=== PATIENT | female | born 1965 | race Caucasian/White ===

== ENCOUNTER 2022-09-03 16:08 | Emergency (ER) | payer OTHER, SELFPAY ==
[2022-09-03 16:24] VITALS: BP 122/100; PULSE 80; RESP 16; TEMP 36.6; O2SAT 97; BMI 30.6
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
[2022-09-03] MEDS: METHOCARBAMOL 500 MG TABLET PO (17:11)
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
== END 2022-09-03 18:45 | disposition home or self-care (01) ==
PROVIDERS: Emergency Provider Emergency Medicine
DX: M54.6 Pain in thoracic spine (principal)
CPT/HCPCS: 72072; 99283

== ENCOUNTER 2022-09-18 10:22 | Emergency (ER) | payer OTHER, SELFPAY ==
[2022-09-18] VITALS (18 sets, daily range): BP systolic 115–140; BP diastolic 72–98; PULSE 62–90; RESP 16–20; TEMP 36.7; O2SAT 93–98; BMI 28.4
--- NOTE | 2022-09-18 10:38 | XR_ITS ---
The [address] [address] Patient Name: KATELYN KAY MRN: [id number] date: 1965 Sex: F Assigned Patient Location: ER Current Patient Location: ED.MAIN Accession/Order Number: [id number] Exam Date: 09/18/2022 10:45 Report Date: 09/18/2022 11:35 At the request of: RA CEJA Procedure: XR chest 1V EXAM: XR chest 1V HISTORY: SOB COMPARISON: 08/24/2019 TECHNIQUE: Chest X-ray AP, 1 view FINDINGS: Support devices: Right jugular approach Mediport catheter overlying the superior vena cava. Lungs/pleura: No consolidation, effusion, or pneumothorax. Heart and mediastinum: Normal contours. Bones: No acute abnormality identified. XR/XR chest 1V Impression: No radiographic evidence of acute cardiopulmonary process. Electronically authenticated by: THALIA FALCON Date: 09/18/2022 11:35
--- NOTE | 2022-09-18 10:38 | ECG_ITS ---
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
[2022-09-18 12:13] LABS: Basophils Percent Auto 0.3 % (0.2-2.0); Eosinophils Absolute Auto 0.1 10^3/uL (0.0-0.7); Eosinophils Percent Auto 1.6 % (0.9-7.0); Hematocrit 38.6 % (36.0-48.0); Hemoglobin 13.5 g/dL (12.0-16.0); Immature Granulocytes Abs Auto 0.01 10^3/uL (0.00-0.03); Immature Granulocytes Pct Auto 0.2 % (0.0-0.5); Lymphocytes Absolute Auto 2.7 10^3/uL (1.2-3.8); Lymphocytes Percent Auto 45.8 % (20.5-60.0); Mean Corpuscular Hemoglobin 32.5 pg (26.7-34.0); Mean Corpuscular Volume 92.8 fL (81.0-99.0); Monocytes Absolute Auto 0.3 10^3/uL (0.3-0.8); Monocytes Percent Auto 4.7 % (1.7-12.0); Neutrophils Absolute Auto 2.8 10^3/uL (1.4-6.5); Neutrophils Percent Auto 47.4 % (43.0-75.0); Platelet Count 118 10^3/uL (150-450); Red Blood Count 4.16 10^6/uL (4.20-5.40); Red Cell Distribution Width 13.2 % (11.0-15.0); White Blood Count 5.8 10^3/uL (4.0-11.0)
[2022-09-18 12:28] LABS: Alanine Aminotransferase 35 U/L (14-59); Albumin Globulin Ratio 1.1; Albumin Level 3.8 g/dL (3.4-5.0); Alkaline Phosphatase 66 U/L (46-116); Anion Gap 16.8; Aspartate Amino Transferase 27 U/L (15-37); BUN Creatinine Ratio 11.8; Bilirubin Total 0.4 mg/dL (0.2-1.0); Calcium 8.9 mg/dL (8.5-10.1); Carbon Dioxide 19.4 mmol/L (21.0-32.0); Chloride 107 mmol/L (98-107); Estimated GFR (African America >60 (>=60); Estimated GFR (Non-African Ame 56 (>=60); Globulin 3.6 g/dL; Glucose 191 mg/dL (74-106); Potassium 4.2 mmol/L (3.5-5.1); Sodium 139 mmol/L (136-145); Total Protein 7.4 g/dL (6.4-8.2); Troponin I High Sensitivity 5.5 pg/mL (4.0-51.3)
[2022-09-18] MEDS: IPRATROPIUM/ALBUTEROL SULFATE 3 ML AMPUL.NEB IH ×2 (12:52→13:51)
--- NOTE | 2022-09-18 13:46 | ED.GENADUL1 ---
HPI - General Adult General Chief complaint: Shortness of Breath/Dyspnea Stated complaint: SHORTNESS OF BREATH Time Seen by Provider: 09/18/22 12:20 Source: patient Mode of arrival: walk-in Limitations: no limitations History of Present Illness HPI narrative: Patient is a 56 red female who is presenting to the Emergency Room today with chief complaint of shortness of breath, wheezing and possible asthma exacerbation and chronic obstructive pulmonary disease exacerbation starting yesterday. Patient has never been a smoker. Patient just developed asthma/chronic obstructive pulmonary disease several years ago. 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 Patient was never a smoker, her parents both were smokers. Patient has no headache. Not lightheaded dizzy. No chest pain. Patient does feel like she is having a difficult time taking a deep breath, no Does not have any change in her shortness of breath at rest or with exertion, but she feels like she is Having difficult time taking a deep breath and she's been using her albuterol inhaler and nebulizer yesterday with little relief. . All systems are negative except as noted/marked. All systems reviewed and otherwise negative. . Nurses note and vital signs reviewed and patient is not hypoxic. General: The patient appears well and in no apparent distress. Patient is resting comfortably on cart. Patient is not toxic, lethargic, or listless Skin: Warm, dry, no pallor noted. There is no rash noted. No petechiae, purpura. Head: Normocephalic, atraumatic Eye: Normal conjunctiva, no drainage, EOMI. PERRL Ears, Nose, Mouth, and Throat: oral mucosa is moist. Nares patent. Mouth without vesicles. Cardiovascular: Regular Rate and Rhythm, no murmur, gallop, rub Respiratory: Patient is in no distress, no accessory muscle use, Patient has decreased breath sounds bilateral, faint wheezing bilateral, no rhonchi or rales or crackles noted. No respiratory distress, equal breath sounds bilateral, equal chest rise, trachea midline Back: non-tender, GI: soft, no tenderness Musculoskeletal: Patient has full range of motion of all of the extremities, no motor, sensory, or focal neurological deficits Neurological: A&O x3, normal speech Psychiatric: Cooperative Related Data Home Medications Medication Instructions Recorded Confirmed alendronate 70 mg tablet mg PO 09/03/22 alprazolam 0.25 mg tablet mg 09/03/22 amitriptyline 25 mg tablet mg 09/03/22 dextromethorphan-guaifenesin 30 tab PO 09/03/22 mg-600 mg tablet extended [id number] hr (Mucinex DM) docusate sodium 100 mg capsule mg PO 09/03/22 ergocalciferol (vitamin D2) 1,250 09/03/22 mcg (50,000 unit) capsule gabapentin 800 mg tablet mg 09/03/22 glipizide 5 mg tablet, extended mg PO 09/03/22 release 24 hr insulin glargine 100 unit/mL (3 unit subcut 09/03/22 mL) subcutaneous pen (Lantus Solostar U-100 Insulin) meloxicam 15 mg tablet mg 09/03/22 metformin 500 mg tablet mg 09/03/22 prochlorperazine maleate 10 mg mg 09/03/22 tablet spironolactone 50 mg tablet mg 09/03/22 Previous Rx's Medication Instructions Recorded methocarbamol 750 mg tablet 750 mg PO Q6H PRN pain #20 tabs 09/03/22 prednisone 50 mg tablet 50 mg PO DAILY 3 days #3 tabs 09/18/22 Allergies Allergy/AdvReac Type Severity Reaction Status Date / Time amoxicillin AdvReac Verified 09/03/22 16:23 ibuprofen [From Motrin] AdvReac Verified 09/03/22 16:23 loratadine AdvReac Verified 09/03/22 16:23 [facility] Medical History (Updated 09/18/22 @ 13:46 by Alberto Choi MD) Surgical History (Updated 09/18/22 @ 13:40 by Sarbjit Kauffman) Social History Smoking status: Never smoker Exam Constitutional Vital Signs, click to edit/add: Last Vital Signs Temp 98.0 F 09/18/22 10:32 Pulse 90 09/18/22 14:09 Resp 16 09/18/22 14:09 BP 136/88 H 09/18/22 14:00 Pulse Ox 95 09/18/22 13:52 O2 Del Method Room Air 09/18/22 12:37 Course Vital Signs Vital signs: Vital Signs Temperature 98.0 F 09/18/22 10:32 Pulse Rate 70 09/18/22 10:32 Respiratory Rate 18 09/18/22 10:32 Blood Pressure 129/86 H 09/18/22 10:32 Pulse Oximetry 98 09/18/22 10:32 Oxygen Delivery Method Room Air 09/18/22 10:32 Temperature 98.0 F 09/18/22 10:32 Pulse Rate 90 09/18/22 14:09 Respiratory Rate 16 09/18/22 14:09 Blood Pressure 136/88 H 09/18/22 14:00 Pulse Oximetry 95 09/18/22 13:52 Oxygen Delivery Method Room Air 09/18/22 12:37 Medical Decision Making MDM Narrative Medical decision making narrative: . Patient was given initial DuoNeb reading to me. Patient had EKG, x-ray labwork done. Patient was given a 2nd DuoNeb breathing treatment just prior to discharge. Patient stated that she felt 50 percent better after the 1st DuoNeb breathing treatment. Patient's x-ray, EKG and labs show no acute findings. Patient was sent home with a short course of steroids use if needed. Patient says that she's never been on steroids in the past couple years. 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 Patient understands instructions, no questions at discharge. Patient does have inhalers and nebulizers use at home. Patient was in the Emergency Room for lengthy amount of time today. Blameless apologies were given. Patient very thankful for help and I apologized several times for her lengthy stay in the Emergency Room. Patient was just happy that she felt better, patient's child at bedside Lab Data Lab results reviewed: Yes I reviewed the patient's lab results Labs: Lab Results 09/18/22 Range/Units 10:57 WBC 5.8 (4.0-11.0) 10^3/uL RBC 4.16 L (4.20-5.40) 10^6/uL Hgb 13.5 (12.0-16.0) g/dL Hct 38.6 (36.0-48.0) % MCV 92.8 (81.0-99.0) fL MCH 32.5 (26.7-34.0) pg MCHC 35.0 (29.9-35.2) g/dL RDW 13.2 (11.0-15.0) % Plt Count 118 L (150-450) 10^3/uL MPV 11.0 (9.5-13.5) fL Neut % (Auto) 47.4 (43.0-75.0) % Lymph % (Auto) 45.8 (20.5-60.0) % [place] % (Auto) 4.7 (1.7-12.0) % Eos % (Auto) 1.6 (0.9-7.0) % Baso % (Auto) 0.3 (0.2-2.0) % Neut # (Auto) 2.8 (1.4-6.5) 10^3/uL Lymph # (Auto) 2.7 (1.2-3.8) 10^3/uL [place] # (Auto) 0.3 (0.3-0.8) 10^3/uL Eos # (Auto) 0.1 (0.0-0.7) 10^3/uL Baso # (Auto) 0.0 (0.0-0.1) 10^3/uL Abs Immat Gran (auto) 0.01 (0.00-0.03) 10^3/uL Imm/Tot Granulo (auto) 0.2 (0.0-0.5) % Sodium 139 (136-145) mmol/L Potassium 4.2 (3.5-5.1) mmol/L Chloride 107 (98-107) mmol/L Carbon Dioxide 19.4 L (21.0-32.0) mmol/L Anion Gap 16.8 BUN 12.0 (7.0-18.0) mg/dL Creatinine 1.02 (0.55-1.02) mg/dL Est GFR ( Amer) >60 (>=60) Est GFR (Non-Af Amer) 56 L (>=60) BUN/Creatinine Ratio 11.8 Glucose 191 H (74-106) mg/dL Calcium 8.9 (8.5-10.1) mg/dL Total Bilirubin 0.4 (0.2-1.0) mg/dL AST 27 (15-37) U/L ALT 35 (14-59) U/L Alkaline Phosphatase 66 (46-116) U/L Troponin I High Sens 5.5 (4.0-51.3) pg/mL Total Protein 7.4 (6.4-8.2) g/dL Albumin 3.8 (3.4-5.0) g/dL Globulin 3.6 g/dL Albumin/Globulin Ratio 1.1 ECG Data Attestation: I personally reviewed and interpreted this ECG as follows: Interpretation: EKG interpretation. Normal sinus rhythm at 64 beats a minute. Normal axis deviation. No acute ST elevation, no acute ectopy. QTC of 411. Discharge Plan Discharge Chief Complaint: Shortness of Breath/Dyspnea Clinical Impression: Asthma attack, Dyspnea, COPD exacerbation Patient Disposition: Home, Self-Care Condition: Good Prescriptions / Home Meds: New prednisone 50 mg tablet 50 mg PO DAILY 3 Days Qty: 3 0RF No Action metformin 500 mg tablet meloxicam 15 mg tablet alendronate 70 mg tablet PO glipizide 5 mg tablet extended release 24hr PO prochlorperazine maleate 10 mg tablet alprazolam 0.25 mg tablet amitriptyline 25 mg tablet gabapentin 800 mg tablet docusate sodium 100 mg capsule PO ergocalciferol (vitamin D2) 1,250 mcg (50,000 unit) capsule Mucinex DM 30-600 mg tablet extended release 12 hr PO spironolactone 50 mg tablet insulin glargine [Lantus Solostar U-100 Insulin] 100 unit/mL (3 mL) insulin pen SUBCUT methocarbamol 750 mg tablet 750 mg PO Q6H PRN (Reason: pain) Qty: 20 0RF Instructions: Asthma (ED), COPD (Chronic Obstructive Pulmonary Disease) (ED), How to Use a Nebulizer (ED), Dyspnea (ED), Wheezing (ED) Additional Instructions: If he started having shortness of breath or wheezing again, take the prednisone tablet. He take one prednisone tablet daily, 50 mg a day. Patient continue to use inhaler every 4 hours while awake for the nebulizer every 4 hours while awake for the next 3-4 days. Follow-up with healing doctor or PCP next week if needed. Stand Alone Forms: Portal Instructions Referrals: Aubrey Salazar [Primary Care Provider] - 1 week Discharge Date/Time: 09/18/22 14:12
== END 2022-09-18 14:12 | disposition home or self-care (01) ==
PROVIDERS: Emergency Provider Emergency Medicine
DX: J45.901 Unspecified asthma with (acute) exacerbation (principal); R06.00 Dyspnea, unspecified; J44.1 Chronic obstructive pulmonary disease with (acute) exacerbation; Z79.899 Other long term (current) drug therapy; Z79.4 Long term (current) use of insulin; Z79.84 Long term (current) use of oral hypoglycemic drugs
CPT/HCPCS: 36415; 71045; 80053; 84484; 85025; 93005; 94640; 99285

== ENCOUNTER 2022-09-20 12:30 | Emergency (ER) | payer OTHER, SELFPAY ==
[2022-09-20] VITALS (10 sets, daily range): BP systolic 140–183; BP diastolic 74–112; PULSE 86; RESP 26; TEMP 36.8; O2SAT 99; BMI 30.8
--- NOTE | 2022-09-20 12:44 | ECG_ITS ---
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
--- NOTE | 2022-09-20 12:44 | XR_ITS ---
The [address] [address] Patient Name: KATELYN KAY MRN: [id number] date: 1965 Sex: F Assigned Patient Location: ER Current Patient Location: ER Accession/Order Number: [id number] Exam Date: 09/20/2022 12:55 Report Date: 09/20/2022 13:17 At the request of: DERRELL LANDIN Procedure: XR chest 1V EXAMINATION: XR chest 1V HISTORY: cp COMPARISON: XR chest 09/18/2022 FINDINGS: LUNGS: No significant pulmonary parenchymal abnormalities. VASCULATURE: No increased pulmonary vasculature. PLEURA: No pneumothorax, effusion, or pleural thickening. CARDIAC: No cardiomegaly or cardiac silhouette abnormality. MEDIASTINUM: No visible mass or adenopathy. BONES: No fracture or visible bone lesion. OTHER: Stable dual-lumen port projecting over right chest with distal catheter tip near cavoatrial junction. XR/XR chest 1V IMPRESSION: 1. No acute cardiopulmonary process. Stable chest. Electronically authenticated by: CASSY JOHNSTON Date: 09/20/2022 13:17
[2022-09-20] MEDS: METHYLPREDNISOLONE SOD SUCC PF 125 MG/2 ML VIAL IVP (13:12)
[2022-09-20 13:13] LABS: Basophils Percent Auto 0.1 % (0.2-2.0); Eosinophils Percent Auto 0.1 % (0.9-7.0); Hematocrit 40.7 % (36.0-48.0); Hemoglobin 14.3 g/dL (12.0-16.0); Immature Granulocytes Abs Auto 0.08 10^3/uL (0.00-0.03); Immature Granulocytes Pct Auto 0.7 % (0.0-0.5); Lymphocytes Absolute Auto 2.6 10^3/uL (1.2-3.8); Lymphocytes Percent Auto 24.4 % (20.5-60.0); Mean Corpuscular HGB Conc 35.1 g/dL (29.9-35.2); Mean Corpuscular Hemoglobin 31.8 pg (26.7-34.0); Mean Corpuscular Volume 90.4 fL (81.0-99.0); Mean Platelet Volume 10.8 fL (9.5-13.5); Monocytes Absolute Auto 0.3 10^3/uL (0.3-0.8); Monocytes Percent Auto 2.5 % (1.7-12.0); Neutrophils Absolute Auto 7.8 10^3/uL (1.4-6.5); Neutrophils Percent Auto 72.2 % (43.0-75.0); Platelet Count 165 10^3/uL (150-450); White Blood Count 10.8 10^3/uL (4.0-11.0)
[2022-09-20 13:30] LABS: Alanine Aminotransferase 33 U/L (14-59); Albumin Globulin Ratio 1.2; Albumin Level 4.3 g/dL (3.4-5.0); Alkaline Phosphatase 61 U/L (46-116); Anion Gap 20.6; Aspartate Amino Transferase 19 U/L (15-37); BUN Creatinine Ratio 11.7; Bilirubin Total 0.9 mg/dL (0.2-1.0); Calcium 9.3 mg/dL (8.5-10.1); Carbon Dioxide 16.3 mmol/L (21.0-32.0); Chloride 105 mmol/L (98-107); Estimated GFR (African America 52 (>=60); Estimated GFR (Non-African Ame 43 (>=60); Globulin 3.6 g/dL; Glucose 176 mg/dL (74-106); Potassium 3.9 mmol/L (3.5-5.1); Sodium 138 mmol/L (136-145); Total Protein 7.9 g/dL (6.4-8.2)
[2022-09-20 13:32] LABS: Troponin I High Sensitivity 4.9 pg/mL (4.0-51.3)
[2022-09-20] MEDS: 0.9 % SODIUM CHLORIDE 1,000 ML 500 ML IV (14:15)
[2022-09-20 15:34] LABS: Bilirubin Urine NEGATIVE (NEGATIVE); Blood Urine MODERATE (NEGATIVE); Clarity Urine CLEAR (CLEAR); Color Urine YELLOW (YELLOW); Glucose Urine UA NEGATIVE (NEGATIVE); Ketones Urine TRACE mg/dL (NEGATIVE); Leukocyte Esterase Urine TRACE (NEGATIVE); Nitrite Urine POSITIVE (NEGATIVE); Protein Urine TRACE mg/dL (NEG/TRACE); Specific Gravity Urine >=1.030 (1.005-1.025); Urobilinogen Urine 0.2 EU/dL (0.2-1.0); pH Urine 5.5 (5.0-9.0)
[2022-09-20 15:38] LABS: Urine Microscopic Indicated YES
[2022-09-20 15:41] LABS: Bacteria Urine MODERATE #/HPF (NONE SEEN); Cast Seen? NONE SEEN #/LPF (NONE SEEN); Crystals Seen? None Seen #/HPF (None Seen); Mucus Urine NONE SEEN (NONE SEEN); Squamous Epithelial Cell Urine FEW #/LPF (NONE/RARE); Urine Culture Indicated YES
--- NOTE | 2022-09-20 16:32 | ED.SOB1 ---
HPI - SOB/Dyspnea General Chief Complaint: Shortness of Breath/Dyspnea Stated Complaint: SHORTNESS OF BREATH Time Seen by Provider: 09/20/22 12:41 Source: patient Mode of arrival: walk-in Limitations: no limitations History of Present Illness HPI Narrative: The patient is a diabetic who is coming to us with difficulty breathing that been going on for at least 3 days , she was already evaluated for asthma exacerbation 2 days ago and discharged home with prednisone and evaluated before for Muscular pain The patient denies any nausea vomiting or any other complaints she just complaining of difficulty breathing the pain continues although she did mention taking breathing treatment before arrival She denies any cough or any chest pain Related Data Home Medications Medication Instructions Recorded Confirmed alendronate 70 mg tablet mg PO 09/03/22 alprazolam 0.25 mg tablet mg 09/03/22 amitriptyline 25 mg tablet mg 09/03/22 dextromethorphan-guaifenesin 30 tab PO 09/03/22 mg-600 mg tablet extended [id number] hr (Mucinex DM) docusate sodium 100 mg capsule mg PO 09/03/22 ergocalciferol (vitamin D2) 1,250 09/03/22 mcg (50,000 unit) capsule gabapentin 800 mg tablet mg 09/03/22 glipizide 5 mg tablet, extended mg PO 09/03/22 release 24 hr insulin glargine 100 unit/mL (3 unit subcut 09/03/22 mL) subcutaneous pen (Lantus Solostar U-100 Insulin) meloxicam 15 mg tablet mg 09/03/22 metformin 500 mg tablet mg 09/03/22 prochlorperazine maleate 10 mg mg 09/03/22 tablet spironolactone 50 mg tablet mg 09/03/22 Previous Rx's Medication Instructions Recorded methocarbamol 750 mg tablet 750 mg PO Q6H PRN pain #20 tabs 09/03/22 Allergies Allergy/AdvReac Type Severity Reaction Status Date / Time amoxicillin AdvReac Verified 09/03/22 16:23 ibuprofen [From Motrin] AdvReac Verified 09/03/22 16:23 loratadine AdvReac Verified 09/03/22 16:23 Review of Systems ROS Status of ROS 10 or more systems reviewed and unremarkable except as noted in history and below [facility] Medical History (Updated 09/20/22 @ 14:04 by Miryam Quiroga MD) Surgical History (Updated 09/18/22 @ 13:40 by Sarbjit Kauffman) Social History Smoking status: Never smoker Exam Narrative Exam Narrative: Nurses notes and vital signs reviewed and patient is not hypoxic. General: Well-appearing and in no apparent distress. Skin: Warm, dry, no pallor noted. No rash. Head: Normocephalic, atraumatic. Neck: Supple, non-tender. Eye: Pupils are equal, round and EOMI. No scleral icterus. Ears, Nose, Mouth, and Throat: TM are clear, no nasal mucosal hypertrophy. Oral mucosa is moist, no posterior oropharynx erythema, uvula is mid-line Cardiovascular: Regular Rate and Rhythm without murmur, gallop or rub. Respiratory: No accessory muscle use or respiratory distress. Lungs are clear to auscultation, no wheezing, rales or rhonchi Chest Wall: no tenderness Back: No midline thoracic or lumbar vertebral tenderness. No CVA tenderness Musculoskeletal: normal ROM, no calf or popliteal tenderness, no lower extremity edema/swelling GI: Abdomen is soft, non-distended. Normal bowel sounds. No masses appreciated. No tenderness to palpation. No rebound, guarding, or rigidity noted. Neurological: A&O x4. No cranial nerve dysfunction observed. No truncal ataxia. Moves all extremities. Sensation intact. Psychiatric: Cooperative and interactive. Normal mood and affect. Constitutional Vital Signs, click to edit/add: Last Vital Signs Temp 98.2 F 09/20/22 12:33 Pulse 86 09/20/22 12:33 Resp 26 H 09/20/22 12:33 BP 183/112 H 09/20/22 14:31 Pulse Ox 99 09/20/22 12:33 O2 Del Method Room Air 09/20/22 12:33 Course Vital Signs Vital signs: Vital Signs Temperature 98.2 F 09/20/22 12:33 Pulse Rate 86 09/20/22 12:33 Respiratory Rate 26 H 09/20/22 12:33 Blood Pressure 166/84 H 09/20/22 12:33 Pulse Oximetry 99 09/20/22 12:33 Oxygen Delivery Method Room Air 09/20/22 12:33 Temperature 98.2 F 09/20/22 12:33 Pulse Rate 86 09/20/22 12:33 Respiratory Rate 26 H 09/20/22 12:33 Blood Pressure 183/112 H 09/20/22 14:31 Pulse Oximetry 99 09/20/22 12:33 Oxygen Delivery Method Room Air 09/20/22 12:33 MDM - SOB/Dyspnea MDM Narrative Medical decision making narrative: The patient EKG in the ER showing sinus rhythm with a heart rate of [address] elevation or depression The patient CBC and chemistry shows metabolic acidosis which could be secondary to the fact that the patient have some acute kidney injury in addition to the fact that she has been taking some steroid and she is diabetic the patient was started IV fluid after initially initiating treatment for possible asthma exacerbation and with the fact that the patient already taking prednisone The patient was instructed not to take any steroids right now and to continue hydration She was feeling much better after she was hydrated in the ER she had no urinary symptoms The patient is to follow up with primary care physician in next 2-3 days or to return to the emergency department should any of the signs or symptoms worsen or new symptoms develop. The patient agrees with the following Diagnosis and Treatment plan and the patient will be discharged home. Lab Data Labs: Lab Results 09/20/22 09/20/22 Range/Units 12:52 14:55 WBC 10.8 (4.0-11.0) 10^3/uL RBC 4.50 (4.20-5.40) 10^6/uL Hgb 14.3 (12.0-16.0) g/dL Hct 40.7 (36.0-48.0) % MCV 90.4 (81.0-99.0) fL MCH 31.8 (26.7-34.0) pg MCHC 35.1 (29.9-35.2) g/dL RDW 13.0 (11.0-15.0) % Plt Count 165 (150-450) 10^3/uL MPV 10.8 (9.5-13.5) fL Neut % (Auto) 72.2 (43.0-75.0) % Lymph % (Auto) 24.4 (20.5-60.0) % [place] % (Auto) 2.5 (1.7-12.0) % Eos % (Auto) 0.1 L (0.9-7.0) % Baso % (Auto) 0.1 L (0.2-2.0) % Neut # (Auto) 7.8 H (1.4-6.5) 10^3/uL Lymph # (Auto) 2.6 (1.2-3.8) 10^3/uL [place] # (Auto) 0.3 (0.3-0.8) 10^3/uL Eos # (Auto) 0.0 (0.0-0.7) 10^3/uL Baso # (Auto) 0.0 (0.0-0.1) 10^3/uL Abs Immat Gran (auto) 0.08 H (0.00-0.03) 10^3/uL Imm/Tot Granulo (auto) 0.7 H (0.0-0.5) % Sodium 138 (136-145) mmol/L Potassium 3.9 (3.5-5.1) mmol/L Chloride 105 (98-107) mmol/L Carbon Dioxide 16.3 L (21.0-32.0) mmol/L Anion Gap 20.6 BUN 15.0 (7.0-18.0) mg/dL Creatinine 1.28 H (0.55-1.02) mg/dL Est GFR ( Amer) 52 L (>=60) Est GFR (Non-Af Amer) 43 L (>=60) BUN/Creatinine Ratio 11.7 Glucose 176 H (74-106) mg/dL Calcium 9.3 (8.5-10.1) mg/dL Total Bilirubin 0.9 (0.2-1.0) mg/dL AST 19 (15-37) U/L ALT 33 (14-59) U/L Alkaline Phosphatase 61 (46-116) U/L Troponin I High Sens 4.9 (4.0-51.3) pg/mL Total Protein 7.9 (6.4-8.2) g/dL Albumin 4.3 (3.4-5.0) g/dL Globulin 3.6 g/dL Albumin/Globulin Ratio 1.2 Urine Color Yellow (YELLOW) Urine Clarity Clear (CLEAR) Urine pH 5.5 (5.0-9.0) Ur Specific [place] >=1.030 A (1.005-1.025) Urine Protein Trace (NEG/TRACE) mg/dL Urine Glucose (UA) Negative (NEGATIVE) mg/dL Urine Ketones Trace A (NEGATIVE) mg/dL Urine Occult Blood Moderate A (NEGATIVE) Urine Nitrite Positive A (NEGATIVE) Urine Bilirubin Negative (NEGATIVE) Urine Urobilinogen 0.2 (0.2-1.0) EU/dL Ur Leukocyte Esterase Trace A (NEGATIVE) Urine RBC 5-10 A (0-2) #/HPF Urine WBC 10-20 A (NONE SEEN) #/HPF Ur Squamous Epith Cells Few A (NONE/RARE) #/LPF Urine Crystals None seen (None Seen) #/HPF Urine Bacteria Moderate A (NONE SEEN) #/HPF Urine Casts None seen (NONE SEEN) #/LPF Urine Mucus None seen (NONE SEEN) Ur Culture Indicated? Yes Discharge Plan Discharge Chief Complaint: Shortness of Breath/Dyspnea Clinical Impression: DIOGENES (acute kidney injury), Asthma Patient Disposition: Home, Self-Care Time of Disposition Decision: 14:00 Condition: Good Prescriptions / Home Meds: Discontinued prednisone 50 mg tablet 50 mg PO DAILY 3 Days Qty: 3 0RF No Action metformin 500 mg tablet meloxicam 15 mg tablet alendronate 70 mg tablet PO glipizide 5 mg tablet extended release 24hr PO prochlorperazine maleate 10 mg tablet alprazolam 0.25 mg tablet amitriptyline 25 mg tablet gabapentin 800 mg tablet docusate sodium 100 mg capsule PO ergocalciferol (vitamin D2) 1,250 mcg (50,000 unit) capsule Mucinex DM 30-600 mg tablet extended release 12 hr PO spironolactone 50 mg tablet insulin glargine [Lantus Solostar U-100 Insulin] 100 unit/mL (3 mL) insulin pen SUBCUT methocarbamol 750 mg tablet 750 mg PO Q6H PRN (Reason: pain) Qty: 20 0RF Instructions: Asthma (ED), Acute Kidney Injury (DC) Stand Alone Forms: Portal Instructions Referrals: Aubrey Salazar [Primary Care Provider] - 1 week Discharge Date/Time: 09/20/22 16:00
--- NOTE | 2022-09-24 10:01 | PC.NURSE ---
09/24/[address] cortes reviewed pt c+s cipro 500mg po bid times 5 days called to katie mohan per pt request pt called and updated, on f/u with pcp and take all atb to ensure complete tx of uti. pt v/u and denies any further questions at this time. Beverly Goodwin RN
== END 2022-09-20 16:00 | disposition home or self-care (01) ==
PROVIDERS: Emergency Provider Emergency Medicine
DX: J45.909 Unspecified asthma, uncomplicated (principal); N17.9 Acute kidney failure, unspecified; Z79.899 Other long term (current) drug therapy; Z79.4 Long term (current) use of insulin; Z79.84 Long term (current) use of oral hypoglycemic drugs
CPT/HCPCS: 36415; 71045; 80053; 81003; 81015; 84484; 85025; 87086; 87150; 87186; 93005; 96374; 99285; J2930

== ENCOUNTER 2022-09-30 10:50 | Emergency (ER) | payer OTHER, SELFPAY ==
[2022-09-30 10:53] VITALS: BP 123/87; PULSE 81; RESP 18; TEMP 36.7; O2SAT 98; BMI 30.8
--- NOTE | 2022-09-30 11:06 | ED_ITS ---
HPI - General Adult General Chief complaint: Skin/Abscess/Foreign Body Stated complaint: face turning yellow Time Seen by Provider: 09/30/22 10:59 Source: patient Mode of arrival: walk-in Limitations: no limitations History of Present Illness HPI narrative: 56-year-old female presents because she feels the skin of her face is turning yellow. She states her eyes are not. She was here within the last week and had s ome kidney issues but she didn't require admission the hospital. She's never had liver issues and doesn't drink alcohol and has no abdominal pain. she noticed this today. Related Data Home Medications Medication Instructions Recorded Confirmed alendronate 70 mg tablet mg PO 09/03/22 alprazolam 0.25 mg tablet mg 09/03/22 amitriptyline 25 mg tablet mg 09/03/22 dextromethorphan-guaifenesin 30 tab PO 09/03/22 mg-600 mg tablet extended hr (Mucinex DM) docusate sodium 100 mg capsule mg PO 09/03/22 ergocalciferol (vitamin D2) 1,250 09/03/22 mcg (50,000 unit) capsule gabapentin 800 mg tablet mg 09/03/22 glipizide 5 mg tablet, extended mg PO 09/03/22 release 24 hr insulin glargine 100 unit/mL (3 unit subcut 09/03/22 mL) subcutaneous pen (Lantus Solostar U-100 Insulin) meloxicam 15 mg tablet mg 09/03/22 metformin 500 mg tablet mg 09/03/22 prochlorperazine maleate 10 mg mg 09/03/22 tablet spironolactone 50 mg tablet mg 09/03/22 Previous Rx's Medication Instructions Recorded methocarbamol 750 mg tablet 750 mg PO Q6H PRN pain #20 tabs 09/03/22 Allergies Allergy/AdvReac Type Severity Reaction Status Date / Time amoxicillin AdvReac Verified 09/03/22 16:23 ibuprofen [From Motrin] AdvReac Verified 09/03/22 16:23 loratadine AdvReac Verified 09/03/22 16:23 Review of Systems ROS Narrative A ten point review of systems is negative except as noted above. [facility] Medical History (Updated 09/30/22 @ 12:33 by Jacob Gallagher MD) Surgical History (Updated 09/18/22 @ 13:40 by Sarbjit Kauffman) Social History Smoking status: Never smoker Exam Narrative Exam Narrative: Nurses note and vital signs reviewed and patient is not hypoxic. General: The patient appears well and in no apparent distress. Patient is resting comfortably on cart. Skin: Warm, dry, no pallor noted. There is no rash noted. I do not notice that her skin is jaundiced on her face or anywhere else. There is no scleral icterus. Head: Normocephalic, atraumatic Eye: Normal conjunctiva, no drainage Ears, Nose, Mouth, and Throat: oral mucosa is moist. Nares patent. Cardiovascular: Regular Rate and Rhythm Respiratory: Patient is in no distress, no accessory muscle use, lungs are brian ar to auscultation, no wheezing, rales or rhonchi Back: non-tender GI: no tenderness to palpation, no masses appreciated. No rebound, guarding, or rigidity noted. Musculoskeletal: The patient has no evidence of calf tenderness, no pitting edema, symmetrical pulses noted bilaterally Neurological: A&O, normal speech Psychiatric: Cooperative Constitutional Vital Signs, click to edit/add: Last Vital Signs Temp 98.1 F 09/30/22 10:53 Pulse 81 09/30/22 10:53 Resp 18 09/30/22 10:53 BP 123/87 09/30/22 10:53 Pulse Ox 98 09/30/22 10:53 Course Vital Signs Vital signs: Vital Signs Temperature 98.1 F 09/30/22 10:53 Pulse Rate 81 09/30/22 10:53 Respiratory Rate 18 09/30/22 10:53 Blood Pressure 123/87 09/30/22 10:53 Pulse Oximetry 98 09/30/22 10:53 Temperature 98.1 F 09/30/22 10:53 Pulse Rate 81 09/30/22 10:53 Respiratory Rate 18 09/30/22 10:53 Blood Pressure 123/87 09/30/22 10:53 Pulse Oximetry 98 09/30/22 10:53 Medical Decision Making MDM Narrative Medical decision making narrative: her workup is negative. Kidney function is greatly improved from last week and her bilirubin is normal. She is reassured. Treatment diagnosis and follow-up were discussed with the patient. Differential Diagnosis Differential Diagnosis: acute kidney injury, dehydration, anemia, liver disease Lab Data Lab results reviewed: Yes I reviewed the patient's lab results Labs: Lab Results 09/30/22 09/30/22 Range/Units 11:11 11:16 WBC 5.3 (4.0-11.0) 10^3/uL RBC 4.35 (4.20-5.40) 10^6/uL Hgb 13.8 (12.0-16.0) g/dL Hct 40.2 (36.0-48.0) % MCV 92.4 (81.0-99.0) fL MCH 31.7 (26.7-34.0) pg MCHC 34.3 (29.9-35.2) g/dL RDW 13.2 (11.0-15.0) % Plt Count 97 L (150-450) 10^3/uL MPV 11.2 (9.5-13.5) fL Neut % (Auto) 46.7 (43.0-75.0) % Lymph % (Auto) 43.8 (20.5-60.0) % [place] % (Auto) 6.6 (1.7-12.0) % Eos % (Auto) 1.9 (0.9-7.0) % Baso % (Auto) 0.4 (0.2-2.0) % Neut # (Auto) 2.5 (1.4-6.5) 10^3/uL Lymph # (Auto) 2.3 (1.2-3.8) 10^3/uL [place] # (Auto) 0.4 (0.3-0.8) 10^3/uL Eos # (Auto) 0.1 (0.0-0.7) 10^3/uL Baso # (Auto) 0.0 (0.0-0.1) 10^3/uL Abs Immat Gran (auto) 0.03 (0.00-0.03) 10^3/uL Imm/Tot Granulo (auto) 0.6 H (0.0-0.5) % Sodium 136 (136-145) mmol/L Potassium 4.5 (3.5-5.1) mmol/L Chloride 104 (98-107) mmol/L Carbon Dioxide 20.5 L (21.0-32.0) mmol/L Anion Gap 16.0 BUN 12.0 (7.0-18.0) mg/dL Creatinine 1.07 H (0.55-1.02) mg/dL Est GFR ( Amer) >60 (>=60) Est GFR (Non-Af Amer) 53 L (>=60) BUN/Creatinine Ratio 11.2 Glucose 246 H (74-106) mg/dL Calcium 9.5 (8.5-10.1) mg/dL Total Bilirubin 0.6 (0.2-1.0) mg/dL AST 19 (15-37) U/L ALT 34 (14-59) U/L Alkaline Phosphatase 68 (46-116) U/L Total Protein 7.1 (6.4-8.2) g/dL Albumin 3.8 (3.4-5.0) g/dL Globulin 3.3 g/dL Albumin/Globulin Ratio 1.2 Urine Color Yellow (YELLOW) Urine Clarity Clear (CLEAR) Urine pH 5.0 (5.0-9.0) Ur Specific [place] >=1.030 A (1.005-1.025) Urine Protein Negative (NEG/TRACE) mg/dL Urine Glucose (UA) 250 A (NEGATIVE) mg/dL Urine Ketones Negative (NEGATIVE) mg/dL Urine Occult Blood Negative (NEGATIVE) Urine Nitrite Negative (NEGATIVE) Urine Bilirubin Negative (NEGATIVE) Urine Urobilinogen 1.0 (0.2-1.0) EU/dL Ur Leukocyte Esterase Negative (NEGATIVE) Discharge Plan Discharge Chief Complaint: Skin/Abscess/Foreign Body Clinical Impression: Fatigue Patient Disposition: Home, Self-Care Time of Disposition Decision: 12:32 Condition: Good Mode of Transportation: Private Vehicle Prescriptions / Home Meds: No Action metformin 500 mg tablet meloxicam 15 mg tablet alendronate 70 mg tablet PO glipizide 5 mg tablet extended release 24hr PO prochlorperazine maleate 10 mg tablet alprazolam 0.25 mg tablet amitriptyline 25 mg tablet gabapentin 800 mg tablet docusate sodium 100 mg capsule PO ergocalciferol (vitamin D2) 1,250 mcg (50,000 unit) capsule Mucinex DM 30-600 mg tablet extended release 12 hr PO spironolactone 50 mg tablet insulin glargine [Lantus Solostar U-100 Insulin] 100 unit/mL (3 mL) insulin pen SUBCUT methocarbamol 750 mg tablet 750 mg PO Q6H PRN (Reason: pain) Qty: 20 0RF Instructions: Fatigue (ED) Stand Alone Forms: Portal Instructions Referrals: Aubrey Salazar [Primary Care Provider] - 1 week
[2022-09-30 11:22] LABS: Bilirubin Urine NEGATIVE (NEGATIVE); Blood Urine NEGATIVE (NEGATIVE); Clarity Urine CLEAR (CLEAR); Color Urine YELLOW (YELLOW); Glucose Urine UA 250 mg/dL (NEGATIVE); Ketones Urine NEGATIVE (NEGATIVE); Leukocyte Esterase Urine NEGATIVE (NEGATIVE); Nitrite Urine NEGATIVE (NEGATIVE); Protein Urine NEGATIVE (NEG/TRACE); Specific Gravity Urine >=1.030 (1.005-1.025)
[2022-09-30 11:30] LABS: Urine Microscopic Indicated NO
[2022-09-30 11:31] LABS: Basophils Percent Auto 0.4 % (0.2-2.0); Eosinophils Absolute Auto 0.1 10^3/uL (0.0-0.7); Eosinophils Percent Auto 1.9 % (0.9-7.0); Hematocrit 40.2 % (36.0-48.0); Hemoglobin 13.8 g/dL (12.0-16.0); Immature Granulocytes Abs Auto 0.03 10^3/uL (0.00-0.03); Immature Granulocytes Pct Auto 0.6 % (0.0-0.5); Lymphocytes Absolute Auto 2.3 10^3/uL (1.2-3.8); Lymphocytes Percent Auto 43.8 % (20.5-60.0); Mean Corpuscular HGB Conc 34.3 g/dL (29.9-35.2); Mean Corpuscular Hemoglobin 31.7 pg (26.7-34.0); Mean Corpuscular Volume 92.4 fL (81.0-99.0); Mean Platelet Volume 11.2 fL (9.5-13.5); Monocytes Absolute Auto 0.4 10^3/uL (0.3-0.8); Monocytes Percent Auto 6.6 % (1.7-12.0); Neutrophils Absolute Auto 2.5 10^3/uL (1.4-6.5); Neutrophils Percent Auto 46.7 % (43.0-75.0); Platelet Count 97 10^3/uL (150-450); Red Blood Count 4.35 10^6/uL (4.20-5.40); Red Cell Distribution Width 13.2 % (11.0-15.0); White Blood Count 5.3 10^3/uL (4.0-11.0)
[2022-09-30 11:48] LABS: Scan Results NEGATIVE
[2022-09-30 12:12] LABS: Alanine Aminotransferase 34 U/L (14-59); Albumin Globulin Ratio 1.2; Albumin Level 3.8 g/dL (3.4-5.0); Alkaline Phosphatase 68 U/L (46-116); Aspartate Amino Transferase 19 U/L (15-37); BUN Creatinine Ratio 11.2; Bilirubin Total 0.6 mg/dL (0.2-1.0); Calcium 9.5 mg/dL (8.5-10.1); Carbon Dioxide 20.5 mmol/L (21.0-32.0); Chloride 104 mmol/L (98-107); Estimated GFR (African America >60 (>=60); Estimated GFR (Non-African Ame 53 (>=60); Globulin 3.3 g/dL; Glucose 246 mg/dL (74-106); Potassium 4.5 mmol/L (3.5-5.1); Sodium 136 mmol/L (136-145); Total Protein 7.1 g/dL (6.4-8.2)
== END 2022-09-30 12:46 | disposition home or self-care (01) ==
PROVIDERS: Emergency Provider Emergency Medicine
DX: R53.83 Other fatigue (principal); Z79.899 Other long term (current) drug therapy; Z79.4 Long term (current) use of insulin; Z79.84 Long term (current) use of oral hypoglycemic drugs
CPT/HCPCS: 36415; 80053; 81003; 85025; 99283

== ENCOUNTER 2022-10-16 13:09 | Emergency (ER) | payer OTHER, SELFPAY ==
[2022-10-16 13:13] VITALS: BP 149/91; PULSE 90; RESP 18; O2SAT 93; BMI 30.5
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
== END 2022-10-16 13:41 | disposition home or self-care (01) ==
PROVIDERS: Emergency Provider Emergency Medicine
DX: S43.402A Unspecified sprain of left shoulder joint, initial encounter (principal); Z79.899 Other long term (current) drug therapy; Z79.4 Long term (current) use of insulin; Z79.84 Long term (current) use of oral hypoglycemic drugs; Y04.0XXA Assault by unarmed brawl or fight, initial encounter
CPT/HCPCS: 99283

== ENCOUNTER 2022-11-16 09:36 | Emergency (ER) | payer OTHER, SELFPAY ==
[2022-11-16 09:40] VITALS: BP 129/98; PULSE 72; RESP 18; TEMP 36.8; O2SAT 94
--- NOTE | 2022-11-16 09:48 | XR_ITS ---
The [address] [address] Patient Name: KATELYN KAY MRN: [id number] date: 1965 Sex: F Assigned Patient Location: ER Current Patient Location: ER Accession/Order Number: [id number] Exam Date: 11/16/2022 10:02 Report Date: 11/16/2022 10:19 At the request of: ISSA SCALES Procedure: XR chest 1V EXAM: XR chest 1V HISTORY: Cough; technologist notes state cough, body aches and exposed to COVID. COMPARISON: 09/20/2022. TECHNIQUE: AP portable chest radiograph performed. FINDINGS: Stable right jugular central venous Mediport with the distal tip extending into the superior vena cava. The trachea is midline. The cardiomediastinal silhouette and hilar shadows are stable and unremarkable. The lung pineda are clear. There is no pneumothorax or osseous abnormality. XR/XR chest 1V IMPRESSION: There is no acute cardiopulmonary process. Electronically authenticated by: KYLAH FRY Date: 11/16/2022 10:19
--- NOTE | 2022-11-16 09:49 | ED.URI1 ---
HPI - URI/Sore Throat General Chief Complaint: Upper Respiratory Infection Stated Complaint: SORE THROAT, COUGH Time Seen by Provider: 11/16/22 09:38 History of Present Illness HPI Narrative: 56-year-old female presents for a one-day history of cough and sore throat and body aches. 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 Her cough has been nonproductive and she hasn't had a known fever. She had a negative Covid test yesterday. Her employer wanted her to get checked out before she goes back to work. Related Data Home Medications Medication Instructions Recorded Confirmed alendronate 70 mg tablet mg PO 09/03/22 alprazolam 0.25 mg tablet mg 09/03/22 amitriptyline 25 mg tablet mg 09/03/22 dextromethorphan-guaifenesin 30 tab PO 09/03/22 mg-600 mg tablet extended [id number] hr (Mucinex DM) docusate sodium 100 mg capsule mg PO 09/03/22 ergocalciferol (vitamin D2) 1,250 09/03/22 mcg (50,000 unit) capsule gabapentin 800 mg tablet mg 09/03/22 glipizide 5 mg tablet, extended mg PO 09/03/22 release 24 hr insulin glargine 100 unit/mL (3 unit subcut 09/03/22 mL) subcutaneous pen (Lantus Solostar U-100 Insulin) meloxicam 15 mg tablet mg 09/03/22 metformin 500 mg tablet mg 09/03/22 prochlorperazine maleate 10 mg mg 09/03/22 tablet spironolactone 50 mg tablet mg 09/03/22 Previous Rx's Medication Instructions Recorded methocarbamol 750 mg tablet 750 mg PO Q6H PRN pain #20 tabs 09/03/22 methocarbamol 750 mg tablet 750 mg PO Q6H PRN pain #30 tabs 10/16/22 nabumetone 750 mg tablet 750 mg PO BID PRN pain #20 tabs 10/16/22 Allergies Allergy/AdvReac Type Severity Reaction Status Date / Time albuterol Allergy Swelling Verified 10/16/22 13:19 of Lip/Tongue/Throat amoxicillin AdvReac Verified 09/03/22 16:23 ibuprofen [From Motrin] AdvReac Verified 09/03/22 16:23 loratadine AdvReac Verified 09/03/22 16:23 Review of Systems ROS Narrative A ten point review of systems is negative except as noted above. [facility] Medical History (Updated 11/16/22 @ 10:34 by Jacob Gallagher MD) Surgical History (Updated 09/18/22 @ 13:40 by Sarbjit Kauffman) Social History Smoking status: Never smoker Exam Narrative Exam Narrative: Nurses note and vital signs reviewed and patient is not hypoxic. General: The patient appears well and in no apparent distress. Patient is resting comfortably on cart. Skin: Warm, dry, no pallor noted. There is no rash noted. Head: Normocephalic, atraumatic Eye: Normal conjunctiva, no drainage Ears, Nose, Mouth, and Throat: oral mucosa is moist. Nares patent. no pharyngeal erythema or exudate. Cardiovascular: Regular Rate and Rhythm Respiratory: Patient is in no distress, no accessory muscle use, lungs are clear to auscultation, no wheezing, rales or rhonchi Back: non-tender GI: soft and nontender Musculoskeletal: The patient has no evidence of calf tenderness, no pitting edema, symmetrical pulses noted bilaterally Neurological: A&O, normal speech Psychiatric: Cooperative Constitutional Vital Signs, click to edit/add: Last Vital Signs Temp 98.3 F 11/16/22 09:40 Pulse 72 11/16/22 09:40 Resp 18 11/16/22 09:40 BP 129/98 H 11/16/22 09:40 Pulse Ox 94 L 11/16/22 09:40 O2 Del Method Room Air 11/16/22 09:40 Course Vital Signs Vital signs: Vital Signs Temperature 98.3 F 11/16/22 09:40 Pulse Rate 72 11/16/22 09:40 Respiratory Rate 18 11/16/22 09:40 Blood Pressure 129/98 H 11/16/22 09:40 Pulse Oximetry 94 L 11/16/22 09:40 Oxygen Delivery Method Room Air 11/16/22 09:40 Temperature 98.3 F 11/16/22 09:40 Pulse Rate 72 11/16/22 09:40 Respiratory Rate 18 11/16/22 09:40 Blood Pressure 129/98 H 11/16/22 09:40 Pulse Oximetry 94 L 11/16/22 09:40 Oxygen Delivery Method Room Air 11/16/22 09:40 MDM - URI/Sore Throat MDM Narrative Medical decision making narrative: strep, Covid, and chest x-ray are all negative. My clinical impression is that she has a viral upper respiratory infection. Treatment diagnosis and follow-up were discussed with the patient. Differential Diagnosis Differential diagnosis: Likely upper respiratory infection, viral infection, pharyngitis and other (Covid, pneumonia) Lab Data Attestation: I reviewed the patient's lab results. Labs: Lab Results 11/16/22 Range/Units 09:48 SARS-CoV-2 (PCR) Negative (NEGATIVE) Streptococcus Screen Negative Imaging Data Chest x-ray: Radiologist's impression: Procedure: XR chest 1V EXAM: XR chest 1V HISTORY: Cough; technologist notes state cough, body aches and exposed to COVID. COMPARISON: 09/20/2022. TECHNIQUE: AP portable chest radiograph performed. FINDINGS: Stable right jugular central venous Mediport with the distal tip extending into the superior vena cava. The trachea is midline. The cardiomediastinal silhouette and hilar shadows are stable and unremarkable. The lung pineda are clear. There is no pneumothorax or osseous abnormality. IMPRESSION: There is no acute cardiopulmonary process. Electronically authenticated by: KYLAH FRY Date: 11/16/2022 10:19 Discharge Plan Discharge Chief Complaint: Upper Respiratory Infection Clinical Impression: Upper respiratory infection, viral Patient Disposition: Home, Self-Care Time of Disposition Decision: 10:33 Condition: Good Mode of Transportation: Private Vehicle Prescriptions / Home Meds: No Action metformin 500 mg tablet meloxicam 15 mg tablet alendronate 70 mg tablet PO glipizide 5 mg tablet extended release 24hr PO prochlorperazine maleate 10 mg tablet alprazolam 0.25 mg tablet amitriptyline 25 mg tablet gabapentin 800 mg tablet docusate sodium 100 mg capsule PO ergocalciferol (vitamin D2) 1,250 mcg (50,000 unit) capsule Mucinex DM 30-600 mg tablet extended release 12 hr PO spironolactone 50 mg tablet insulin glargine [Lantus Solostar U-100 Insulin] 100 unit/mL (3 mL) insulin pen SUBCUT methocarbamol 750 mg tablet 750 mg PO Q6H PRN (Reason: pain) Qty: 20 0RF nabumetone 750 mg tablet 750 mg PO BID PRN (Reason: pain) Qty: 20 0RF methocarbamol 750 mg tablet 750 mg PO Q6H PRN (Reason: pain) Qty: 30 0RF Instructions: Upper Respiratory Infection (ED), Viral Syndrome (ED) Stand Alone Forms: Portal Instructions Referrals: Aubrey Salazar [Primary Care Provider] - 1 week
[2022-11-16 10:16] LABS: SARS-CoV-2 Ag NEGATIVE (NEGATIVE)
[2022-11-16 10:17] LABS: Internal Control Within Normal Limits; Strep A Antigen Screen Negative
[2022-11-16 15:31] LABS: SARS-CoV-2 NAA NOT DETECTED (NOT DETECTE)
== END 2022-11-16 11:09 | disposition home or self-care (01) ==
PROVIDERS: Emergency Provider Emergency Medicine
DX: J06.9 Acute upper respiratory infection, unspecified (principal); Z79.4 Long term (current) use of insulin; Z79.84 Long term (current) use of oral hypoglycemic drugs
CPT/HCPCS: 71045; 87070; 87635; 87811; 87880; 99284; U0003

== ENCOUNTER 2022-12-03 11:44 | Emergency (ER) | payer OTHER, SELFPAY ==
[2022-12-03] VITALS (10 sets, daily range): BP systolic 117–132; BP diastolic 77–85; PULSE 72–91; RESP 13–24; TEMP 36.6–36.8; O2SAT 95–99; BMI 30.8
--- NOTE | 2022-12-03 12:03 | XR_ITS ---
The [address] [address] Patient Name: KATELYN KAY MRN: [id number] date: 1965 Sex: F Assigned Patient Location: ER Current Patient Location: ER Accession/Order Number: [id number] Exam Date: 12/03/2022 12:08 Report Date: 12/03/2022 12:21 At the request of: GENNA SUTHERLAND Procedure: XR chest 1V EXAM: XR chest 1V at 1205 hours HISTORY: chest pain COMPARISON: 11/16/2022 TECHNIQUE: AP upright portable chest x-ray FINDINGS: The heart is not enlarged and the vasculature is not distended. No acute infiltrate, effusion or pneumothorax is identified. A right-sided indwelling catheter remains in place. The osseous structures are grossly intact. XR/XR chest 1V IMPRESSION: No acute infiltrate or evidence of cardiac decompensation. The overall appearance of the chest is essentially unchanged. Electronically authenticated by: KYLAH WORLEY Date: 12/03/2022 12:21
--- NOTE | 2022-12-03 12:03 | ECG_ITS ---
The 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
--- NOTE | 2022-12-03 12:06 | ED.GENADUL1 ---
HPI - General Adult General Chief complaint: Chest Pain Stated complaint: CHEST PAIN Time Seen by Provider: 12/03/22 11:56 Source: patient Mode of arrival: walk-in History of Present Illness HPI narrative: chest pain developed yesterday. She called her PCP and was told to go to the ED for evaluation. She had been lifting some heavier items - denied any fall or injury. Pain is worse when pressing on the area. No GI or symptoms. No cough, fever or chills. Nothing taken at home for the pain. SHe also complained that she is out of her regular nausea medication - she has long history of dyspepsia. Related Data Home Medications Medication Instructions Recorded Confirmed alendronate 70 mg tablet mg PO 09/03/22 alprazolam 0.25 mg tablet mg 09/03/22 amitriptyline 25 mg tablet mg 09/03/22 dextromethorphan-guaifenesin 30 tab PO 09/03/22 mg-600 mg tablet extended [id number] hr (Mucinex DM) docusate sodium 100 mg capsule mg PO 09/03/22 ergocalciferol (vitamin D2) 1,250 09/03/22 mcg (50,000 unit) capsule gabapentin 800 mg tablet mg 09/03/22 glipizide 5 mg tablet, extended mg PO 09/03/22 release 24 hr insulin glargine 100 unit/mL (3 unit subcut 09/03/22 mL) subcutaneous pen (Lantus Solostar U-100 Insulin) meloxicam 15 mg tablet mg 09/03/22 metformin 500 mg tablet mg 09/03/22 prochlorperazine maleate 10 mg mg 09/03/22 tablet spironolactone 50 mg tablet mg 09/03/22 Previous Rx's Medication Instructions Recorded methocarbamol 750 mg tablet 750 mg PO Q6H PRN pain #20 tabs 09/03/22 methocarbamol 750 mg tablet 750 mg PO Q6H PRN pain #30 tabs 10/16/22 nabumetone 750 mg tablet 750 mg PO BID PRN pain #20 tabs 10/16/22 ondansetron 4 mg disintegrating 4 mg PO Q6H PRN nausea and 12/03/22 tablet vomiting #20 tabs Allergies Allergy/AdvReac Type Severity Reaction Status Date / Time albuterol Allergy Swelling Verified 10/16/22 13:19 of Lip/Tongue/Throat empagliflozin AdvReac Mild Nausea Verified 12/03/22 11:56 [From Jardiance] amoxicillin AdvReac Verified 09/03/22 16:23 ibuprofen [From Motrin] AdvReac Verified 09/03/22 16:23 loratadine AdvReac Verified 09/03/22 16:23 PFSH PFSH Medical History (Updated 12/03/22 @ 12:53 by Genna Sutherland) History of asthma ?Z87.09 - Personal history of other diseases of the respiratory system (ICD-10) History of COPD ?Z87.09 - Personal history of other diseases of the respiratory system (ICD-10) Hx of cardiac murmur ?Z86.79 - Personal history of other diseases of the circulatory system (ICD-10) Hx of cervical cancer ?Z85.41 - Personal history of malignant neoplasm of cervix uteri (ICD-10) Hx of gastroesophageal reflux (GERD) ?Z87.19 - Personal history of other diseases of the digestive system (ICD-10) Hx of irritable bowel syndrome ?Z87.19 - Personal history of other diseases of the digestive system (ICD-10) Hx of ovarian cancer ?Z85.43 - Personal history of malignant neoplasm of ovary (ICD-10) Hx of renal calculi ?Z87.442 - Personal history of urinary calculi (ICD-10) Hx of sleep apnea ?Z86.69 - Personal history of other diseases of the nervous system and sense organs (ICD-10) Hypertension ?I10 - Essential (primary) hypertension (ICD-10) IDDM (insulin dependent diabetes mellitus) Surgical History (Updated 09/18/22 @ 13:40 by Sarbjit Kauffman) History of loop electrosurgical excision procedure (LEEP) ?Z98.890 - Other specified postprocedural states (ICD-10) Hx laparoscopic cholecystectomy ?Z90.49 - Acquired absence of other specified parts of digestive tract (ICD-10) Hx of arthroscopy of shoulder ?Z98.890 - Other specified postprocedural states (ICD-10) Hx of tonsillectomy ?Z90.89 - Acquired absence of other organs (ICD-10) Hx of unilateral oophorectomy ?Z90.721 - Acquired absence of ovaries, unilateral (ICD-10) Social History Smoking status: Never smoker Exam Narrative Exam Narrative: Nurses notes and vital signs reviewed and patient is not hypoxic. afebrile General: Well-appearing and in no apparent distress. Skin: Warm, dry, no pallor noted. No rash. Head: Normocephalic, atraumatic. Neck: Supple, non-tender. Eye: Pupils are equal, round and EOMI. No scleral icterus. Cardiovascular: Regular Rate and Rhythm without murmur, gallop or rub. Respiratory: No accessory muscle use or respiratory distress. Lungs are clear to auscultation, no wheezing, rales or rhonchi Chest Wall: focal anterior chest wall tenderness without crepitus or subcutaneous case emphysema Musculoskeletal: normal ROM, no calf or popliteal tenderness, no lower extremity edema/swelling GI: Abdomen is soft, non-distended. Normal bowel sounds. No tenderness to palpation. No rebound, guarding, or rigidity noted. Neurological: A&O x4. No cranial nerve dysfunction observed. No truncal ataxia. Moves all extremities. Sensation intact. Psychiatric: Cooperative and interactive. Normal mood and affect. Constitutional Vital Signs, click to edit/add: Last Vital Signs Temp 97.8 F 12/03/22 11:47 Pulse 79 12/03/22 11:47 Resp 18 12/03/22 11:47 BP 117/77 12/03/22 11:47 Pulse Ox 99 12/03/22 11:47 O2 Del Method Room Air 12/03/22 11:47 Course Vital Signs Vital signs: Vital Signs Temperature 97.8 F 12/03/22 11:47 Pulse Rate 79 12/03/22 11:47 Respiratory Rate 18 12/03/22 11:47 Blood Pressure 117/77 12/03/22 11:47 Pulse Oximetry 99 12/03/22 11:47 Oxygen Delivery Method Room Air 12/03/22 11:47 Temperature 97.8 F 12/03/22 11:47 Pulse Rate 79 12/03/22 11:47 Respiratory Rate 18 12/03/22 11:47 Blood Pressure 117/77 12/03/22 11:47 Pulse Oximetry 99 12/03/22 11:47 Oxygen Delivery Method Room Air 12/03/22 11:47 Medical Decision Making MDM Narrative Medical decision making narrative: The patient's exam is consistent with chest wall etiology. Patient was placed on quality assurance monitor chassis and EKG obtained. EKG normal. Blood drawn and sent for evaluation. chest x-ray obtained - no acute abnormality was noted by the radiologist. Blood testing was likewise unremarkable with negative troponin and BNP. CBC and BMP were normal, as well, except for slightly increase BUN and Creatinine. patient informed of result and discharged home. I refilled her Zofran prescription HEART score is 1 for age - low risk and safe to discharge home with out-patient follow up - she see [facility]. Lab Data Lab results reviewed: Yes I reviewed the patient's lab results Labs: Lab Results 12/03/22 Range/Units 12:00 WBC 5.5 (4.0-11.0) 10^3/uL RBC 4.16 L (4.20-5.40) 10^6/uL Hgb 13.2 (12.0-16.0) g/dL Hct 39.1 (36.0-48.0) % MCV 94.0 (81.0-99.0) fL MCH 31.7 (26.7-34.0) pg MCHC 33.8 (29.9-35.2) g/dL RDW 13.3 (11.0-15.0) % Plt Count 103 L (150-450) 10^3/uL MPV 11.0 (9.5-13.5) fL Neut % (Auto) 46.3 (43.0-75.0) % Lymph % (Auto) 47.2 (20.5-60.0) % Noble % (Auto) 4.4 (1.7-12.0) % Eos % (Auto) 1.5 (0.9-7.0) % Baso % (Auto) 0.2 (0.2-2.0) % Neut # (Auto) 2.6 (1.4-6.5) 10^3/uL Lymph # (Auto) 2.6 (1.2-3.8) 10^3/uL Noble # (Auto) 0.2 L (0.3-0.8) 10^3/uL Eos # (Auto) 0.1 (0.0-0.7) 10^3/uL Baso # (Auto) 0.0 (0.0-0.1) 10^3/uL Abs Immat Gran (auto) 0.02 (0.00-0.03) 10^3/uL Imm/Tot Granulo (auto) 0.4 (0.0-0.5) % D-Dimer 0.27 (<=0.59) mg/L FEU Sodium 136 (136-145) mmol/L Potassium 4.5 (3.5-5.1) mmol/L Chloride 105 (98-107) mmol/L Carbon Dioxide 23.7 (21.0-32.0) mmol/L Anion Gap 11.8 BUN 20.0 H (7.0-18.0) mg/dL Creatinine 1.17 H (0.55-1.02) mg/dL Est GFR ( Amer) 58 L (>=60) Est GFR (Non-Af Amer) 48 L (>=60) BUN/Creatinine Ratio 17.1 Glucose 199 H (74-106) mg/dL Calcium 9.0 (8.5-10.1) mg/dL Troponin I High Sens 4.3 (4.0-51.3) pg/mL NT-Pro-B Natriuret Pep 71.0 (<=900.0) pg/mL Imaging Data Chest x-ray: Radiologist's impression: Patient Name: KATELYN KAY MRN: [id number] date: 1965 Sex: F Assigned Patient Location: ER Current Patient Location: ER Accession/Order Number: [id number] Exam Date: 12/03/2022 12:08 Report Date: 12/03/2022 12:21 At the request of: GENNA SUTHERLAND Procedure: XR chest 1V EXAM: XR chest 1V at 1205 hours HISTORY: chest pain COMPARISON: 11/16/2022 TECHNIQUE: AP upright portable chest x-ray FINDINGS: The heart is not enlarged and the vasculature is not distended. No acute infiltrate, effusion or pneumothorax is identified. A right-sided indwelling catheter remains in place. The osseous structures are grossly intact. IMPRESSION: No acute infiltrate or evidence of cardiac decompensation. The overall appearance of the chest is essentially unchanged. Electronically authenticated by: KYLAH WORLEY Date: 12/03/2022 12:21 ECG Data Interpretation: EKG interpretation: Emergency Department physician interpretation. Normal sinus rhythm at 71bpm. Normal axis, normal intervals and no ST segment elevation or depression. Normal EKG. Discharge Plan Discharge Chief Complaint: Chest Pain Clinical Impression: Anterior chest wall pain Patient Disposition: Home, Self-Care Time of Disposition Decision: 12:53 Prescriptions / Home Meds: New ondansetron 4 mg tablet,disintegrating 4 mg PO Q6H PRN (Reason: nausea and vomiting) Qty: 20 0RF No Action metformin 500 mg tablet meloxicam 15 mg tablet alendronate 70 mg tablet PO glipizide 5 mg tablet extended release 24hr PO prochlorperazine maleate 10 mg tablet alprazolam 0.25 mg tablet amitriptyline 25 mg tablet gabapentin 800 mg tablet docusate sodium 100 mg capsule PO ergocalciferol (vitamin D2) 1,250 mcg (50,000 unit) capsule Mucinex DM 30-600 mg tablet extended release 12 hr PO spironolactone 50 mg tablet insulin glargine [Lantus Solostar U-100 Insulin] 100 unit/mL (3 mL) insulin pen SUBCUT methocarbamol 750 mg tablet 750 mg PO Q6H PRN (Reason: pain) Qty: 20 0RF nabumetone 750 mg tablet 750 mg PO BID PRN (Reason: pain) Qty: 20 0RF methocarbamol 750 mg tablet 750 mg PO Q6H PRN (Reason: pain) Qty: 30 0RF Instructions: Chest Wall Pain (ED) Stand Alone Forms: Portal Instructions Referrals: Aubrey Salazar [Primary Care Provider] - 1 week
[2022-12-03 12:15] LABS: Basophils Percent Auto 0.2 % (0.2-2.0); Eosinophils Absolute Auto 0.1 10^3/uL (0.0-0.7); Eosinophils Percent Auto 1.5 % (0.9-7.0); Hematocrit 39.1 % (36.0-48.0); Hemoglobin 13.2 g/dL (12.0-16.0); Immature Granulocytes Abs Auto 0.02 10^3/uL (0.00-0.03); Immature Granulocytes Pct Auto 0.4 % (0.0-0.5); Lymphocytes Absolute Auto 2.6 10^3/uL (1.2-3.8); Lymphocytes Percent Auto 47.2 % (20.5-60.0); Mean Corpuscular HGB Conc 33.8 g/dL (29.9-35.2); Mean Corpuscular Hemoglobin 31.7 pg (26.7-34.0); Monocytes Absolute Auto 0.2 10^3/uL (0.3-0.8); Monocytes Percent Auto 4.4 % (1.7-12.0); Neutrophils Absolute Auto 2.6 10^3/uL (1.4-6.5); Neutrophils Percent Auto 46.3 % (43.0-75.0); Platelet Count 103 10^3/uL (150-450); Red Blood Count 4.16 10^6/uL (4.20-5.40); Red Cell Distribution Width 13.3 % (11.0-15.0); White Blood Count 5.5 10^3/uL (4.0-11.0)
[2022-12-03 12:31] LABS: D Dimer 0.27 mg/L FEU (<=0.59)
[2022-12-03 12:35] LABS: Anion Gap 11.8; BUN Creatinine Ratio 17.1; Carbon Dioxide 23.7 mmol/L (21.0-32.0); Chloride 105 mmol/L (98-107); Estimated GFR (African America 58 (>=60); Estimated GFR (Non-African Ame 48 (>=60); Glucose 199 mg/dL (74-106); Potassium 4.5 mmol/L (3.5-5.1); Sodium 136 mmol/L (136-145); Troponin I High Sensitivity 4.3 pg/mL (4.0-51.3)
[2022-12-03] MEDS: HEPARIN SODIUM (PORCINE) PF LOCK FLUSH 500 UNIT/5 ML SYRINGE IV (13:08)
== END 2022-12-03 13:24 | disposition home or self-care (01) ==
PROVIDERS: Emergency Provider Emergency Medicine
DX: R07.89 Other chest pain (principal); I10 Essential (primary) hypertension; E11.9 Type 2 diabetes mellitus without complications; Z79.899 Other long term (current) drug therapy; Z79.4 Long term (current) use of insulin; Z79.84 Long term (current) use of oral hypoglycemic drugs; Z90.89 Acquired absence of other organs; Z90.721 Acquired absence of ovaries, unilateral; Z90.49 Acquired absence of other specified parts of digestive tract; Z85.43 Personal history of malignant neoplasm of ovary; Z87.19 Personal history of other diseases of the digestive system; Z85.41 Personal history of malignant neoplasm of cervix uteri; Z87.09 Personal history of other diseases of the respiratory system; Z86.79 Personal history of other diseases of the circulatory system; Z87.442 Personal history of urinary calculi
CPT/HCPCS: 36415; 36591; 71045; 80048; 83880; 84484; 85025; 85378; 93005; 96374; 99285

== ENCOUNTER 2022-12-12 13:06 | Emergency (ER) | payer OTHER, SELFPAY ==
[2022-12-12 13:11] VITALS: BP 158/84; PULSE 89; RESP 20; TEMP 36.7; O2SAT 98; BMI 27.3
--- NOTE | 2022-12-12 13:37 | ED_ITS ---
HPI - General Adult General Chief complaint: Seizure Stated complaint: GENERAL WEAKNESS Time Seen by Provider: 12/12/22 13:18 Source: patient Mode of arrival: walk-in Limitations: no limitations History of Present Illness HPI narrative: patient woke from a deep sleep when her phone rang and she had tingling from head to toe and felt like she couldn't move. She was able to use her phone, though and call someone else, who came to the house to see her. She said that she had a weird sensation for about an hour. No specific symptoms. No pain. She has no history of seizures but she is concerned she might have had a seizure while sleeping - she cannot explain the basis for that. No symptoms now. She said that she has been taking all of her meds as prescribed and that her blood sugars have been ok . Related Data Home Medications Medication Instructions Recorded Confirmed alendronate 70 mg tablet mg PO 09/03/22 alprazolam 0.25 mg tablet mg 09/03/22 amitriptyline 25 mg tablet mg 09/03/22 dextromethorphan-guaifenesin 30 tab PO 09/03/22 mg-600 mg tablet extended [id number] hr (Mucinex DM) docusate sodium 100 mg capsule mg PO 09/03/22 ergocalciferol (vitamin D2) 1,250 09/03/22 mcg (50,000 unit) capsule gabapentin 800 mg tablet mg 09/03/22 glipizide 5 mg tablet, extended mg PO 09/03/22 release 24 hr insulin glargine 100 unit/mL (3 unit subcut 09/03/22 mL) subcutaneous pen (Lantus Solostar U-100 Insulin) meloxicam 15 mg tablet mg 09/03/22 metformin 500 mg tablet mg 09/03/22 prochlorperazine maleate 10 mg mg 09/03/22 tablet spironolactone 50 mg tablet mg 09/03/22 Previous Rx's Medication Instructions Recorded methocarbamol 750 mg tablet 750 mg PO Q6H PRN pain #20 tabs 09/03/22 methocarbamol 750 mg tablet 750 mg PO Q6H PRN pain #30 tabs 10/16/22 nabumetone 750 mg tablet 750 mg PO BID PRN pain #20 tabs 10/16/22 ondansetron 4 mg disintegrating 4 mg PO Q6H PRN nausea and 12/03/22 tablet vomiting #20 tabs Allergies Allergy/AdvReac Type Severity Reaction Status Date / Time albuterol Allergy Swelling Verified 10/16/22 13:19 of Lip/Tongue/Throat empagliflozin AdvReac Mild Nausea Verified 12/03/22 11:56 [From Jardiance] amoxicillin AdvReac Verified 09/03/22 16:23 ibuprofen [From Motrin] AdvReac Verified 09/03/22 16:23 loratadine AdvReac Verified 09/03/22 16:23 PFSH PFSH Medical History (Updated 12/12/22 @ 14:18 by Sarthak Teague) History of asthma ?Z87.09 - Personal history of other diseases of the respiratory system (ICD- 10) History of COPD ?Z87.09 - Personal history of other diseases of the respiratory system (ICD- 10) Hx of cardiac murmur ?Z86.79 - Personal history of other diseases of the circulatory system (ICD- 10) Hx of cervical cancer ?Z85.41 - Personal history of malignant neoplasm of cervix uteri (ICD-10) Hx of gastroesophageal reflux (GERD) ?Z87.19 - Personal history of other diseases of the digestive system (ICD-10) Hx of irritable bowel syndrome ?Z87.19 - Personal history of other diseases of the digestive system (ICD-10) Hx of ovarian cancer ?Z85.43 - Personal history of malignant neoplasm of ovary (ICD-10) Hx of renal calculi ?Z87.442 - Personal history of urinary calculi (ICD-10) Hx of sleep apnea ?Z86.69 - Personal history of other diseases of the nervous system and sense organs (ICD-10) Hypertension ?I10 - Essential (primary) hypertension (ICD-10) IDDM (insulin dependent diabetes mellitus) Surgical History (Updated 09/18/22 @ 13:40 by Sarbjit Kauffman) History of loop electrosurgical excision procedure (LEEP) ?Z98.890 - Other specified postprocedural states (ICD-10) Hx laparoscopic cholecystectomy ?Z90.49 - Acquired absence of other specified parts of digestive tract (ICD- 10) Hx of arthroscopy of shoulder ?Z98.890 - Other specified postprocedural states (ICD-10) Hx of tonsillectomy ?Z90.89 - Acquired absence of other organs (ICD-10) Hx of unilateral oophorectomy ?Z90.721 - Acquired absence of ovaries, unilateral (ICD-10) Social History Smoking status: Never smoker Exam Narrative Exam Narrative: Nurses notes and vital signs reviewed and patient is not hypoxic. febrile General: Well-appearing and in no apparent distress. Skin: Warm, dry, no pallor noted. Head: Normocephalic, atraumatic. Neck: Supple, non-tender. Eye: Pupils are equal, round and EOMI. No scleral icterus. Ears, Nose, Mouth, and Throat: Oral mucosa is moist Cardiovascular: Regular Rate and Rhythm without murmur, gallop or rub. Respiratory: No accessory muscle use or respiratory distress. Lungs are clear to auscultation, no wheezing, rales or rhonchi Back: No midline thoracic or lumbar vertebral tenderness. Musculoskeletal: normal ROM, no lower extremity edema/swelling GI: Abdomen is soft, non-distended. Normal bowel sounds. No tenderness to palpation. No rebound, guarding, or rigidity noted. Neurological: A&O x4. No cranial nerve dysfunction observed. No truncal ataxia. Moves all extremities. Sensation intact. Psychiatric: Cooperative and interactive. Normal mood and affect. Constitutional Vital Signs, click to edit/add: Last Vital Signs Temp 98.1 F 12/12/22 13:11 Pulse 89 12/12/22 13:11 Resp 20 12/12/22 13:11 BP 158/84 H 12/12/22 13:11 Pulse Ox 98 12/12/22 13:11 O2 Del Method Room Air 12/12/22 13:11 Course Vital Signs Vital signs: Vital Signs Temperature 98.1 F 12/12/22 13:11 Pulse Rate 89 12/12/22 13:11 Respiratory Rate 20 12/12/22 13:11 Blood Pressure 158/84 H 12/12/22 13:11 Pulse Oximetry 98 12/12/22 13:11 Oxygen Delivery Method Room Air 12/12/22 13:11 Temperature 98.1 F 12/12/22 13:11 Pulse Rate 89 12/12/22 13:11 Respiratory Rate 20 12/12/22 13:11 Blood Pressure 158/84 H 12/12/22 13:11 Pulse Oximetry 98 12/12/22 13:11 Oxygen Delivery Method Room Air 12/12/22 13:11 Medical Decision Making MDM Narrative Medical decision making narrative: the incident that the patient describes is not consistent with seizure activity. Instead it sounds like temporary sleep paralysis. Her exam is normal at this time. She was given reassurance. blood drawn and sent for testing and was unremarkable. patient discharged home. Lab Data Lab results reviewed: Yes I reviewed the patient's lab results Labs: Lab Results 12/12/22 Range/Units 13:50 WBC 6.3 (4.0-11.0) 10^3/uL RBC 4.31 (4.20-5.40) 10^6/uL Hgb 13.6 (12.0-16.0) g/dL Hct 40.8 (36.0-48.0) % MCV 94.7 (81.0-99.0) fL MCH 31.6 (26.7-34.0) pg MCHC 33.3 (29.9-35.2) g/dL RDW 13.4 (11.0-15.0) % Plt Count 122 L (150-450) 10^3/uL MPV 10.9 (9.5-13.5) fL Neut % (Auto) 53.0 (43.0-75.0) % Lymph % (Auto) 41.0 (20.5-60.0) % [place] % (Auto) 3.9 (1.7-12.0) % Eos % (Auto) 1.4 (0.9-7.0) % Baso % (Auto) 0.5 (0.2-2.0) % Neut # (Auto) 3.4 (1.4-6.5) 10^3/uL Lymph # (Auto) 2.6 (1.2-3.8) 10^3/uL [place] # (Auto) 0.3 (0.3-0.8) 10^3/uL Eos # (Auto) 0.1 (0.0-0.7) 10^3/uL Baso # (Auto) 0.0 (0.0-0.1) 10^3/uL Abs Immat Gran (auto) 0.01 (0.00-0.03) 10^3/uL Imm/Tot Granulo (auto) 0.2 (0.0-0.5) % Sodium 140 (136-145) mmol/L Potassium 4.3 (3.5-5.1) mmol/L Chloride 103 (98-107) mmol/L Carbon Dioxide 26.1 (21.0-32.0) mmol/L Anion Gap 15.2 BUN 11.0 (7.0-18.0) mg/dL Creatinine 1.00 (0.55-1.02) mg/dL Est GFR ( Amer) >60 (>=60) Est GFR (Non-Af Amer) 57 L (>=60) BUN/Creatinine Ratio 11.0 Glucose 232 H (74-106) mg/dL Calcium 9.0 (8.5-10.1) mg/dL Magnesium 1.8 (1.8-2.4) mg/dL Discharge Plan Discharge Chief Complaint: Seizure Clinical Impression: Paresthesias Patient Disposition: Home, Self-Care Time of Disposition Decision: 14:18 Prescriptions / Home Meds: No Action metformin 500 mg tablet meloxicam 15 mg tablet alendronate 70 mg tablet PO glipizide 5 mg tablet extended release 24hr PO prochlorperazine maleate 10 mg tablet alprazolam 0.25 mg tablet amitriptyline 25 mg tablet gabapentin 800 mg tablet docusate sodium 100 mg capsule PO ergocalciferol (vitamin D2) 1,250 mcg (50,000 unit) capsule Mucinex DM 30-600 mg tablet extended release 12 hr PO spironolactone 50 mg tablet insulin glargine [Lantus Solostar U-100 Insulin] 100 unit/mL (3 mL) insulin pen SUBCUT methocarbamol 750 mg tablet 750 mg PO Q6H PRN (Reason: pain) Qty: 20 0RF nabumetone 750 mg tablet 750 mg PO BID PRN (Reason: pain) Qty: 20 0RF methocarbamol 750 mg tablet 750 mg PO Q6H PRN (Reason: pain) Qty: 30 0RF ondansetron 4 mg tablet,disintegrating 4 mg PO Q6H PRN (Reason: nausea and vomiting) Qty: 20 0RF Instructions: Paresthesia (ED) Stand Alone Forms: Portal Instructions Referrals: Aubrey Salazar [Primary Care Provider] - 1 week
[2022-12-12 13:57] LABS: Basophils Percent Auto 0.5 % (0.2-2.0); Eosinophils Absolute Auto 0.1 10^3/uL (0.0-0.7); Eosinophils Percent Auto 1.4 % (0.9-7.0); Hematocrit 40.8 % (36.0-48.0); Hemoglobin 13.6 g/dL (12.0-16.0); Immature Granulocytes Abs Auto 0.01 10^3/uL (0.00-0.03); Immature Granulocytes Pct Auto 0.2 % (0.0-0.5); Lymphocytes Absolute Auto 2.6 10^3/uL (1.2-3.8); Mean Corpuscular HGB Conc 33.3 g/dL (29.9-35.2); Mean Corpuscular Hemoglobin 31.6 pg (26.7-34.0); Mean Corpuscular Volume 94.7 fL (81.0-99.0); Mean Platelet Volume 10.9 fL (9.5-13.5); Monocytes Absolute Auto 0.3 10^3/uL (0.3-0.8); Monocytes Percent Auto 3.9 % (1.7-12.0); Neutrophils Absolute Auto 3.4 10^3/uL (1.4-6.5); Platelet Count 122 10^3/uL (150-450); Red Blood Count 4.31 10^6/uL (4.20-5.40); Red Cell Distribution Width 13.4 % (11.0-15.0); White Blood Count 6.3 10^3/uL (4.0-11.0)
[2022-12-12 14:08] LABS: Anion Gap 15.2; Carbon Dioxide 26.1 mmol/L (21.0-32.0); Chloride 103 mmol/L (98-107); Estimated GFR (African America >60 (>=60); Estimated GFR (Non-African Ame 57 (>=60); Glucose 232 mg/dL (74-106); Magnesium 1.8 mg/dL (1.8-2.4); Potassium 4.3 mmol/L (3.5-5.1); Sodium 140 mmol/L (136-145)
== END 2022-12-12 14:36 | disposition home or self-care (01) ==
PROVIDERS: Emergency Provider Emergency Medicine
DX: R20.2 Paresthesia of skin (principal); J44.9 Chronic obstructive pulmonary disease, unspecified; I10 Essential (primary) hypertension; E11.9 Type 2 diabetes mellitus without complications; Z86.79 Personal history of other diseases of the circulatory system; K21.9 Gastro-esophageal reflux disease without esophagitis; Z85.41 Personal history of malignant neoplasm of cervix uteri; Z85.43 Personal history of malignant neoplasm of ovary; Z87.442 Personal history of urinary calculi; Z90.49 Acquired absence of other specified parts of digestive tract; Z90.89 Acquired absence of other organs; Z90.721 Acquired absence of ovaries, unilateral; Z98.890 Other specified postprocedural states; Z79.899 Other long term (current) drug therapy; Z79.4 Long term (current) use of insulin; Z79.84 Long term (current) use of oral hypoglycemic drugs
CPT/HCPCS: 36415; 80048; 83735; 85025; 99283

== ENCOUNTER 2023-01-09 10:29 | Emergency (ER) | payer OTHER, SELFPAY ==
[2023-01-09 10:33] VITALS: BP 148/83; PULSE 56; RESP 18; TEMP 36.8; O2SAT 97; BMI 30.8
[2023-01-09 10:49] LABS: Clarity Urine CLEAR (CLEAR); Color Urine DK. ORANGE (YELLOW); Protein Urine 30 mg/dL (NEG/TRACE)
[2023-01-09 10:58] LABS: Bilirubin Urine COLOR INTERFERENCE (NEGATIVE); Blood Urine COLOR INTERFERENCE (NEGATIVE); Glucose Urine UA COLOR INTERFERENCE mg/dL (NEGATIVE); Ketones Urine COLOR INTERFERENCE mg/dL (NEGATIVE); Leukocyte Esterase Urine COLOR INTERFERENCE (NEGATIVE); Nitrite Urine COLOR INTERFERENCE (NEGATIVE); Urine Microscopic Indicated YES; Urobilinogen Urine COLOR INTERFERENCE EU/dL (0.2-1.0); pH Urine COLOR INTERFERENCE (5.0-9.0)
[2023-01-09 11:00] LABS: Bacteria Urine SMALL #/HPF (NONE SEEN); Mucus Urine NONE SEEN (NONE SEEN); RBC Urine 0-2 #/HPF (0-2); Squamous Epithelial Cell Urine MODERATE #/LPF (NONE/RARE)
[2023-01-09 11:01] LABS: Urine Culture Indicated YES
--- NOTE | 2023-01-09 11:05 | ED.FEMALEGU1 ---
HPI - Female Genitourinary General Chief complaint: Urogenital-Female Stated complaint: URINE PAIN Time Seen by Provider: 01/09/23 10:38 Source: patient Mode of arrival: walk-in Limitations: no limitations History of Present Illness HPI Narrative: Patient complains of intense urethral burning on urination for the last 2 days. No abdominal or flank pain. She has been taking pyridium OTC without any improvement. No fever or vomiting. Related Data Home Medications Medication Instructions Recorded Confirmed alendronate 70 mg tablet mg PO 09/03/22 alprazolam 0.25 mg tablet mg 09/03/22 amitriptyline 25 mg tablet mg 09/03/22 dextromethorphan-guaifenesin 30 tab PO 09/03/22 mg-600 mg tablet extended [id number] hr (Mucinex DM) docusate sodium 100 mg capsule mg PO 09/03/22 ergocalciferol (vitamin D2) 1,250 09/03/22 mcg (50,000 unit) capsule gabapentin 800 mg tablet mg 09/03/22 glipizide 5 mg tablet, extended mg PO 09/03/22 release 24 hr insulin glargine 100 unit/mL (3 unit subcut 09/03/22 mL) subcutaneous pen (Lantus Solostar U-100 Insulin) meloxicam 15 mg tablet mg 09/03/22 metformin 500 mg tablet mg 09/03/22 prochlorperazine maleate 10 mg mg 09/03/22 tablet spironolactone 50 mg tablet mg 09/03/22 Previous Rx's Medication Instructions Recorded methocarbamol 750 mg tablet 750 mg PO Q6H PRN pain #20 tabs 09/03/22 methocarbamol 750 mg tablet 750 mg PO Q6H PRN pain #30 tabs 10/16/22 nabumetone 750 mg tablet 750 mg PO BID PRN pain #20 tabs 10/16/22 ondansetron 4 mg disintegrating 4 mg PO Q6H PRN nausea and 12/03/22 tablet vomiting #20 tabs ciprofloxacin HCl 500 mg tablet 500 mg PO BID 3 days #6 tabs 01/09/23 (Cipro) Allergies Allergy/AdvReac Type Severity Reaction Status Date / Time albuterol Allergy Swelling Verified 10/16/22 13:19 of Lip/Tongue/Throat empagliflozin AdvReac Mild Nausea Verified 12/03/22 11:56 [From Jardiance] amoxicillin AdvReac Verified 09/03/22 16:23 ibuprofen [From Motrin] AdvReac Verified 09/03/22 16:23 loratadine AdvReac Verified 09/03/22 16:23 [facility] Medical History (Updated 01/09/23 @ 11:08 by Sarthak Teague) History of asthma ?Z87.09 - Personal history of other diseases of the respiratory system (ICD-10) History of COPD ?Z87.09 - Personal history of other diseases of the respiratory system (ICD-10) Hx of cardiac murmur ?Z86.79 - Personal history of other diseases of the circulatory system (ICD-10) Hx of cervical cancer ?Z85.41 - Personal history of malignant neoplasm of cervix uteri (ICD-10) Hx of gastroesophageal reflux (GERD) ?Z87.19 - Personal history of other diseases of the digestive system (ICD-10) Hx of irritable bowel syndrome ?Z87.19 - Personal history of other diseases of the digestive system (ICD-10) Hx of ovarian cancer ?Z85.43 - Personal history of malignant neoplasm of ovary (ICD-10) Hx of renal calculi ?Z87.442 - Personal history of urinary calculi (ICD-10) Hx of sleep apnea ?Z86.69 - Personal history of other diseases of the nervous system and sense organs (ICD-10) Hypertension ?I10 - Essential (primary) hypertension (ICD-10) IDDM (insulin dependent diabetes mellitus) Surgical History (Updated 09/18/22 @ 13:40 by Sarbjit Kauffman) History of loop electrosurgical excision procedure (LEEP) ?Z98.890 - Other specified postprocedural states (ICD-10) Hx laparoscopic cholecystectomy ?Z90.49 - Acquired absence of other specified parts of digestive tract (ICD-10) Hx of arthroscopy of shoulder ?Z98.890 - Other specified postprocedural states (ICD-10) Hx of tonsillectomy ?Z90.89 - Acquired absence of other organs (ICD-10) Hx of unilateral oophorectomy ?Z90.721 - Acquired absence of ovaries, unilateral (ICD-10) Social History Smoking status: Never smoker Exam Narrative Exam Narrative: Nurses notes and vital signs reviewed and patient is not hypoxic. afebrile General: Well-appearing and in no apparent distress. Skin: Warm, dry, no pallor noted. No rash. Cardiovascular: Regular Rate and Rhythm without murmur, gallop or rub. Respiratory: No accessory muscle use or respiratory distress. Lungs are clear to auscultation, no wheezing, rales or rhonchi Back: No CVA tenderness Musculoskeletal: normal ROM, no calf or popliteal tenderness, no lower extremity edema/swelling GI: Abdomen is soft, non-distended. Normal bowel sounds. No masses appreciated. No tenderness to palpation. No rebound, guarding, or rigidity noted. Neurological: A&O x4. No cranial nerve dysfunction observed. No truncal ataxia. Moves all extremities. Sensation intact. Psychiatric: Cooperative and interactive. Normal mood and affect. Constitutional Vital Signs, click to edit/add: Last Vital Signs Temp 98.2 F 01/09/23 10:33 Pulse 56 L 01/09/23 10:33 Resp 18 01/09/23 10:33 BP 148/83 H 01/09/23 10:33 Pulse Ox 97 01/09/23 10:33 O2 Del Method Room Air 01/09/23 10:33 Course Vital Signs Vital signs: Vital Signs Temperature 98.2 F 01/09/23 10:33 Pulse Rate 56 L 01/09/23 10:33 Respiratory Rate 18 01/09/23 10:33 Blood Pressure 148/83 H 01/09/23 10:33 Pulse Oximetry 97 01/09/23 10:33 Oxygen Delivery Method Room Air 01/09/23 10:33 Temperature 98.2 F 01/09/23 10:33 Pulse Rate 56 L 01/09/23 10:33 Respiratory Rate 18 01/09/23 10:33 Blood Pressure 148/83 H 01/09/23 10:33 Pulse Oximetry 97 01/09/23 10:33 Oxygen Delivery Method Room Air 01/09/23 10:33 MDM - Female Genitourinary MDM Narrative Medical decision making narrative: the patient has been taking pyridium, which interfered with our ability to get accurate UA results. Urine culture pending. Patient prescribed 3 day course of Cipro due to history of frequent UTIs and current symptoms. We will call her if the urine culture suggests need for antibiotic change. Lab Data Attestation: I reviewed the patient's lab results. Labs: Lab Results 01/09/23 Range/Units 10:41 Urine Color Dk. orange (YELLOW) Urine Clarity Clear (CLEAR) Urine pH Color interference A (5.0-9.0) Ur Specific [place] 1.020 (1.005-1.025) Urine Protein 30 A (NEG/TRACE) mg/dL Urine Glucose (UA) Color interference A (NEGATIVE) mg/dL Urine Ketones Color interference A (NEGATIVE) mg/dL Urine Occult Blood Color interference A (NEGATIVE) Urine Nitrite Color interference A (NEGATIVE) Urine Bilirubin Color interference A (NEGATIVE) Urine Urobilinogen Color interference A (0.2-1.0) EU/dL Ur Leukocyte Esterase Color interference A (NEGATIVE) Urine RBC 0-2 (0-2) #/HPF Urine WBC 2-5 A (NONE SEEN) #/HPF Ur Squamous Epith Cells Moderate A (NONE/RARE) #/LPF Urine Bacteria Small A (NONE SEEN) #/HPF Urine Mucus None seen (NONE SEEN) Ur Culture Indicated? Yes Discharge Plan Discharge Chief Complaint: Urogenital-Female Clinical Impression: Dysuria Patient Disposition: Home, Self-Care Time of Disposition Decision: 11:08 Prescriptions / Home Meds: New ciprofloxacin HCl [Cipro] 500 mg tablet 500 mg PO BID 3 Days Qty: 6 0RF No Action metformin 500 mg tablet meloxicam 15 mg tablet alendronate 70 mg tablet PO glipizide 5 mg tablet extended release 24hr PO prochlorperazine maleate 10 mg tablet alprazolam 0.25 mg tablet amitriptyline 25 mg tablet gabapentin 800 mg tablet docusate sodium 100 mg capsule PO ergocalciferol (vitamin D2) 1,250 mcg (50,000 unit) capsule Mucinex DM 30-600 mg tablet extended release 12 hr PO spironolactone 50 mg tablet insulin glargine [Lantus Solostar U-100 Insulin] 100 unit/mL (3 mL) insulin pen SUBCUT methocarbamol 750 mg tablet 750 mg PO Q6H PRN (Reason: pain) Qty: 20 0RF nabumetone 750 mg tablet 750 mg PO BID PRN (Reason: pain) Qty: 20 0RF methocarbamol 750 mg tablet 750 mg PO Q6H PRN (Reason: pain) Qty: 30 0RF ondansetron 4 mg tablet,disintegrating 4 mg PO Q6H PRN (Reason: nausea and vomiting) Qty: 20 0RF Instructions: Dysuria (ED) Stand Alone Forms: Portal Instructions Referrals: Aubrey Salazar [Primary Care Provider] - 1 week
== END 2023-01-09 11:46 | disposition home or self-care (01) ==
PROVIDERS: Emergency Provider Emergency Medicine
DX: R30.0 Dysuria (principal); I10 Essential (primary) hypertension; E11.9 Type 2 diabetes mellitus without complications; Z98.890 Other specified postprocedural states; Z87.19 Personal history of other diseases of the digestive system; Z85.41 Personal history of malignant neoplasm of cervix uteri; Z85.43 Personal history of malignant neoplasm of ovary; Z87.442 Personal history of urinary calculi; Z86.69 Personal history of other diseases of the nervous system and sense organs; Z86.79 Personal history of other diseases of the circulatory system; Z87.09 Personal history of other diseases of the respiratory system; Z90.49 Acquired absence of other specified parts of digestive tract; Z90.721 Acquired absence of ovaries, unilateral; Z87.440 Personal history of urinary (tract) infections; Z79.899 Other long term (current) drug therapy; Z79.84 Long term (current) use of oral hypoglycemic drugs; Z79.4 Long term (current) use of insulin
CPT/HCPCS: 81001; 87086; 87186; 99283

== ENCOUNTER 2023-02-02 23:38 | Emergency (ER) | payer OTHER, SELFPAY ==
[2023-02-02 23:42] VITALS: BP 168/98; PULSE 72; RESP 16; TEMP 36.6; O2SAT 99; BMI 30.8
--- NOTE | 2023-02-02 23:57 | XR_ITS ---
The [address] [address] Patient Name: KATELYN KAY MRN: [id number] date: 1965 Sex: F Assigned Patient Location: ER Current Patient Location: Accession/Order Number: [id number] Exam Date: 02/02/2023 23:59 Report Date: 02/03/2023 00:35 At the request of: GENNA SUTHERLAND Procedure: XR acute abdomen series EXAM: XR acute abdomen series HISTORY: mid abdominal pain COMPARISON: Chest x-ray 12/03/2022 TECHNIQUE: Acute abdominal x-ray series with single frontal view image of the chest x-ray and 3 frontal images of the abdomen and pelvis x-rays FINDINGS: CHEST: Right chest wall port distal tip at the SVC. Mild left lower lung streaky opacities. No large pleural effusion, pneumothorax, or acute bony abnormality. Cardiac size is unremarkable. ABDOMEN: No dilated small bowel silhouette or air-fluid levels. Moderate amount of stool within the ascending and transverse colon. No large free air by radiograph. Thoracolumbar vertebroplasty. Cholecystectomy clips. XR/XR acute abdomen series IMPRESSION: Mild left lower lung streaky opacities reflect atelectasis with crowding of pulmonary vessels, less likely lung infiltrates. Correlate clinically. Nonobstructive bowel gas pattern with moderate amount of stool within the ascending and transverse colon. Electronically authenticated by: AUBREE OLIVARES Date: 02/03/2023 00:35
--- NOTE | 2023-02-03 00:16 | ED_ITS ---
HPI - Abdominal Pain General Chief Complaint: Abdominal Pain Stated Complaint: ABD PAIN Time Seen by Provider: 02/02/23 23:44 Source: patient Mode of arrival: walk-in Limitations: no limitations History of Present Illness HPI narrative: Tonight around 11pm the patient developed mid abdominal pain after drinking water at work. No other associated symptoms. She rates the pain, which is non- radiating, 10/10. She denied any nausea or vomiting. She denied any recent difficulty passing stool. No fever or chills. No flank pain or dysuria. Nothing taken for the pain = she came to the ED for evaluation. Related Data Home Medications Medication Instructions Recorded Confirmed alprazolam 0.25 mg tablet 0.25 mg PO TID PRN anxiety 09/03/22 02/02/23 glipizide 5 mg tablet, extended 5 mg PO DAILY 09/03/22 02/02/23 release 24 hr insulin glargine 100 unit/mL (3 1 unit subcut DAILY 09/03/22 02/02/23 mL) subcutaneous pen (Lantus Solostar U-100 Insulin) metformin 500 mg tablet 500 mg PO BID 09/03/22 02/02/23 spironolactone 50 mg tablet 50 mg PO DAILY 09/03/22 02/02/23 Previous Rx's Medication Instructions Recorded hyoscyamine sulfate 0.125 mg 0.125 mg PO Q6H PRN abdominal pain 02/03/23 sublingual tablet (Levsin/SL) #20 tabs ondansetron 4 mg disintegrating 4 mg PO Q6H PRN nausea and 02/03/23 tablet vomiting #20 tabs Allergies Allergy/AdvReac Type Severity Reaction Status Date / Time Penicillins Allergy Unknown Verified 02/02/23 23:48 albuterol Allergy Swelling Verified 02/02/23 23:48 of Lip/Tongue/Throat empagliflozin AdvReac Mild Nausea Verified 02/02/23 23:48 [From Jardiance] amoxicillin AdvReac Verified 02/02/23 23:48 ibuprofen [From Motrin] AdvReac Verified 02/02/23 23:48 loratadine AdvReac Verified 02/02/23 23:48 PFSH PFSH Medical History (Updated 02/03/23 @ 00:21 by Genna Sutherland) Hx of ovarian cancer ?Z85.43 - Personal history of malignant neoplasm of ovary (ICD-10) Hx of cervical cancer ?Z85.41 - Personal history of malignant neoplasm of cervix uteri (ICD-10) Hx of renal calculi ?Z87.442 - Personal history of urinary calculi (ICD-10) History of COPD ?Z87.09 - Personal history of other diseases of the respiratory system (ICD- 10) IDDM (insulin dependent diabetes mellitus) Hx of gastroesophageal reflux (GERD) ?Z87.19 - Personal history of other diseases of the digestive system (ICD-10) Hx of cardiac murmur ?Z86.79 - Personal history of other diseases of the circulatory system (ICD- 10) Hypertension ?I10 - Essential (primary) hypertension (ICD-10) Hx of irritable bowel syndrome ?Z87.19 - Personal history of other diseases of the digestive system (ICD-10) History of asthma ?Z87.09 - Personal history of other diseases of the respiratory system (ICD- 10) Hx of sleep apnea ?Z86.69 - Personal history of other diseases of the nervous system and sense organs (ICD-10) Surgical History (Updated 09/18/22 @ 13:40 by Sarbjit Kauffman) Hx of tonsillectomy ?Z90.89 - Acquired absence of other organs (ICD-10) Hx laparoscopic cholecystectomy ?Z90.49 - Acquired absence of other specified parts of digestive tract (ICD- 10) Hx of arthroscopy of shoulder ?Z98.890 - Other specified postprocedural states (ICD-10) Hx of unilateral oophorectomy ?Z90.721 - Acquired absence of ovaries, unilateral (ICD-10) History of loop electrosurgical excision procedure (LEEP) ?Z98.890 - Other specified postprocedural states (ICD-10) Social History Smoking status: Never smoker Exam Narrative Exam Narrative: Nurses notes and vital signs reviewed and patient is not hypoxic. afebrile General: Well-appearing and in no apparent distress. Skin: Warm, dry, no pallor noted. No rash to abdomen. Eye: Pupils are equal, round and EOMI. No scleral icterus. Cardiovascular: Regular Rate and Rhythm without murmur, gallop or rub. Respiratory: No accessory muscle use or respiratory distress. Lungs are clear to auscultation, no wheezing, rales or rhonchi Back: No CVA tenderness Musculoskeletal: normal ROM, no calf or popliteal tenderness, no lower extremity edema/swelling GI: Abdomen is soft, mildly distended. Normal bowel sounds. No masses appreciated. Mid abdominal tenderness to palpation. No rebound, guarding, or rigidity noted. Neurological: A&O x4. No cranial nerve dysfunction observed. No truncal ataxia. Moves all extremities. Sensation intact. Psychiatric: Cooperative and interactive. Normal mood and affect. Constitutional Vital Signs, click to edit/add: Last Vital Signs Temp 97.8 F 02/02/23 23:42 Pulse 72 02/02/23 23:42 Resp 16 02/02/23 23:42 BP 168/98 H 02/02/23 23:42 Pulse Ox 99 02/02/23 23:42 O2 Del Method Room Air 02/02/23 23:42 Course Vital Signs Vital signs: Vital Signs Temperature 97.8 F 02/02/23 23:42 Pulse Rate 72 02/02/23 23:42 Respiratory Rate 16 02/02/23 23:42 Blood Pressure 168/98 H 02/02/23 23:42 Pulse Oximetry 99 02/02/23 23:42 Oxygen Delivery Method Room Air 02/02/23 23:42 Temperature 97.8 F 02/02/23 23:42 Pulse Rate 72 02/02/23 23:42 Respiratory Rate 16 02/02/23 23:42 Blood Pressure 168/98 H 02/02/23 23:42 Pulse Oximetry 99 02/02/23 23:42 Oxygen Delivery Method Room Air 02/02/23 23:42 MDM - Abdominal Pain MDM Narrative Medical decision making narrative: Patient given zofran and Levsin. Abdominal xrays obtained. Some stool retention noted. No obstruction or perforation. Patient instructed to maintain a clear liquid diet the next 24 hours, prescribed Zofran and Levsin to take at home. Imaging Data Abdominal x-ray: My impression: stool retention without obstruction or perforation, otherwise NAD Radiologist's impression: Patient Name: KATELYN KAY MRN: [facility]:[id number] date: 1965 Sex: F Assigned Patient Location: ER Current Patient Location: Accession/Order Number: [id number] Exam Date: 02/02/2023 23:59 Report Date: 02/03/2023 00:35 At the request of: GENNA SUTHERLAND Procedure: XR acute abdomen series EXAM: XR acute abdomen series HISTORY: mid abdominal pain COMPARISON: Chest x-ray 12/03/2022 TECHNIQUE: Acute abdominal x-ray series with single frontal view image of the chest x-ray and 3 frontal images of the abdomen and pelvis x-rays FINDINGS: CHEST: Right chest wall port distal tip at the SVC. Mild left lower lung streaky opacities. No large pleural effusion, pneumothorax, or acute bony abnormality. Cardiac size is unremarkable. ABDOMEN: No dilated small bowel silhouette or air-fluid levels. Moderate amount of stool within the ascending and transverse colon. No large free air by radiograph. Thoracolumbar vertebroplasty. Cholecystectomy clips. IMPRESSION: Mild left lower lung streaky opacities reflect atelectasis with crowding of pulmonary vessels, less likely lung infiltrates. Correlate clinically. Nonobstructive bowel gas pattern with moderate amount of stool within the ascending and transverse colon. Electronically authenticated by: AUBREE OLIVARES Date: 02/03/2023 00:35 Discharge Plan Discharge Chief Complaint: Abdominal Pain Clinical Impression: Abdominal pain Patient Disposition: Home, Self-Care Time of Disposition Decision: 00:21 Prescriptions / Home Meds: New ondansetron 4 mg tablet,disintegrating 4 mg PO Q6H PRN (Reason: nausea and vomiting) Qty: 20 0RF hyoscyamine sulfate [Levsin/SL] 0.125 mg tablet, sublingual 0.125 mg PO Q6H PRN (Reason: abdominal pain) Qty: 20 0RF No Action metformin 500 mg tablet 500 mg PO BID glipizide 5 mg tablet extended release 24hr 5 mg PO DAILY alprazolam 0.25 mg tablet 0.25 mg PO TID PRN (Reason: anxiety) spironolactone 50 mg tablet 50 mg PO DAILY insulin glargine [Lantus Solostar U-100 Insulin] 100 unit/mL (3 mL) insulin pen 1 unit SUBCUT DAILY Instructions: Abdominal Pain (ED) Stand Alone Forms: Portal Instructions Referrals: Aubrey Salazar [Primary Care Provider] - 1 week Discharge Date/Time: 02/03/23 00:31
[2023-02-03] MEDS: HYOSCYAMINE SULFATE 0.125 MG TAB.SUBL SL (00:19)
[2023-02-03] MEDS: ONDANSETRON 4 MG RAPDIS TABLET PO (00:19)
== END 2023-02-03 00:31 | disposition home or self-care (01) ==
PROVIDERS: Emergency Provider Emergency Medicine
DX: R10.9 Unspecified abdominal pain (principal); E11.9 Type 2 diabetes mellitus without complications; I10 Essential (primary) hypertension; Z79.899 Other long term (current) drug therapy; Z79.4 Long term (current) use of insulin; Z79.84 Long term (current) use of oral hypoglycemic drugs; Z85.43 Personal history of malignant neoplasm of ovary; Z85.41 Personal history of malignant neoplasm of cervix uteri; Z87.442 Personal history of urinary calculi; Z86.69 Personal history of other diseases of the nervous system and sense organs; Z87.09 Personal history of other diseases of the respiratory system; Z87.19 Personal history of other diseases of the digestive system; Z90.49 Acquired absence of other specified parts of digestive tract; Z98.890 Other specified postprocedural states; Z90.721 Acquired absence of ovaries, unilateral
CPT/HCPCS: 74022; 99283

== ENCOUNTER 2023-02-10 01:32 | Emergency (ER) | payer OTHER, SELFPAY ==
[2023-02-10 01:48] VITALS: BP 153/83; PULSE 76; RESP 18; TEMP 36.8; O2SAT 95; BMI 28.5
--- NOTE | 2023-02-10 02:06 | ED_ITS ---
HPI - Abdominal Pain General Chief Complaint: Abdominal Pain Stated Complaint: ABD PAIN Time Seen by Provider: 02/10/23 02:00 Source: patient Mode of arrival: walk-in Limitations: no limitations History of Present Illness HPI narrative: patient presents complaining of constipation. States her doctor called in medication to the pharmacy but pharmacy has no record of it. States she did have a couple of BMs yesterday but still feels like she needs to go and can't . No vomiting or fever Related Data Home Medications Medication Instructions Recorded Confirmed alprazolam 0.25 mg tablet 0.25 mg PO TID PRN anxiety 09/03/22 02/02/23 glipizide 5 mg tablet, extended 5 mg PO DAILY 09/03/22 02/10/23 release 24 hr insulin glargine 100 unit/mL (3 1 unit subcut DAILY 09/03/22 02/02/23 mL) subcutaneous pen (Lantus Solostar U-100 Insulin) metformin 500 mg tablet 500 mg PO BID 09/03/22 02/10/23 spironolactone 50 mg tablet 50 mg PO DAILY 09/03/22 02/10/23 prochlorperazine maleate 10 mg 10 mg PO DAILY PRN anxiety 02/10/23 02/10/23 tablet Previous Rx's Medication Instructions Recorded hyoscyamine sulfate 0.125 mg 0.125 mg PO Q6H PRN abdominal pain 02/03/23 sublingual tablet (Levsin/SL) #20 tabs ondansetron 4 mg disintegrating 4 mg PO Q6H PRN nausea and 02/03/23 tablet vomiting #20 tabs Allergies Allergy/AdvReac Type Severity Reaction Status Date / Time Penicillins Allergy Unknown Verified 02/02/23 23:48 albuterol Allergy Swelling Verified 02/02/23 23:48 of Lip/Tongue/Throat empagliflozin AdvReac Mild Nausea Verified 02/02/23 23:48 [From Jardiance] amoxicillin AdvReac Verified 02/02/23 23:48 ibuprofen [From Motrin] AdvReac Verified 02/02/23 23:48 loratadine AdvReac Verified 02/02/23 23:48 PFSH PFSH Medical History (Updated 02/10/23 @ 04:36 by Doe Booth MD) Hx of ovarian cancer ?Z85.43 - Personal history of malignant neoplasm of ovary (ICD-10) Hx of cervical cancer ?Z85.41 - Personal history of malignant neoplasm of cervix uteri (ICD-10) Hx of renal calculi ?Z87.442 - Personal history of urinary calculi (ICD-10) History of COPD ?Z87.09 - Personal history of other diseases of the respiratory system (ICD- 10) IDDM (insulin dependent diabetes mellitus) Hx of gastroesophageal reflux (GERD) ?Z87.19 - Personal history of other diseases of the digestive system (ICD-10) Hx of cardiac murmur ?Z86.79 - Personal history of other diseases of the circulatory system (ICD- 10) Hypertension ?I10 - Essential (primary) hypertension (ICD-10) Hx of irritable bowel syndrome ?Z87.19 - Personal history of other diseases of the digestive system (ICD-10) History of asthma ?Z87.09 - Personal history of other diseases of the respiratory system (ICD- 10) Hx of sleep apnea ?Z86.69 - Personal history of other diseases of the nervous system and sense organs (ICD-10) Surgical History (Updated 09/18/22 @ 13:40 by Sarbjit Kauffman) Hx of tonsillectomy ?Z90.89 - Acquired absence of other organs (ICD-10) Hx laparoscopic cholecystectomy ?Z90.49 - Acquired absence of other specified parts of digestive tract (ICD- 10) Hx of arthroscopy of shoulder ?Z98.890 - Other specified postprocedural states (ICD-10) Hx of unilateral oophorectomy ?Z90.721 - Acquired absence of ovaries, unilateral (ICD-10) History of loop electrosurgical excision procedure (LEEP) ?Z98.890 - Other specified postprocedural states (ICD-10) Social History Smoking status: Never smoker Exam Constitutional Vital Signs, click to edit/add: Last Vital Signs Temp 98.3 F 02/10/23 01:48 Pulse 76 02/10/23 01:48 Resp 18 02/10/23 01:48 BP 153/83 H 02/10/23 01:48 Pulse Ox 95 02/10/23 01:48 Common normals: no apparent distress, average body habitus, oriented x3, no limi tations, healthy appearing and alert Eye Common normals: EOMs intact bilaterally and conjunctivae normal Respiratory Common normals: normal respiratory effort and no retractions Cardio Common normals: regular rate, regular rhythm, S1 normal heart sound and S2 normal heart sound GI Common normals: Normal to inspection, nondistended, normoactive bowel sounds present, soft to palpation and non-tender Extremity Common normals: normal to inspection and full ROM Neuro Common normals: CN's II-XII intact bilaterally, moves all extremities and no focal motor deficits Psych Appearance: grossly normal Course Vital Signs Vital signs: Vital Signs Temperature 98.3 F 02/10/23 01:48 Pulse Rate 76 02/10/23 01:48 Respiratory Rate 18 02/10/23 01:48 Blood Pressure 153/83 H 02/10/23 01:48 Pulse Oximetry 95 02/10/23 01:48 Temperature 98.3 F 02/10/23 01:48 Pulse Rate 76 02/10/23 01:48 Respiratory Rate 18 02/10/23 01:48 Blood Pressure 153/83 H 02/10/23 01:48 Pulse Oximetry 95 02/10/23 01:48 MDM - Abdominal Pain MDM Narrative Medical decision making narrative: patient presents complaining of constipation. abdomen soft. no vomiting. xray confirms constipation. Patient given successful enema and discharged home Imaging Data Abdominal x-ray: Radiologist's impression: At the request of: DOE BOOTH Procedure: XR abdomen min 2V EXAM: XR abdomen min 2V HISTORY: constipation COMPARISON: Acute abdomen series dated 02/03/2023. TECHNIQUE: 2 views of the abdomen were obtained. FINDINGS: Cholecystectomy clips are noted. Vertebroplasty changes are seen at T12, L1, and L3. The imaged lung bases are clear. There are a few air-fluid levels within nondilated loops of bowel. There is a prominent amount of well-formed stool in the distal colon and rectum. No intraperitoneal free air is seen. No acute osseous abnormality is seen. XR/XR abdomen min 2V IMPRESSION: 1. Prominent amount of well-formed stool in the distal colon and rectum. 2. There are a few air-fluid levels within nondilated loops of bowel which could represent enteritis and diarrhea. Electronically authenticated by Discharge Plan Discharge Chief Complaint: Abdominal Pain Clinical Impression: Constipation Prescriptions / Home Meds: No Action metformin 500 mg tablet 500 mg PO BID glipizide 5 mg tablet extended release 24hr 5 mg PO DAILY alprazolam 0.25 mg tablet 0.25 mg PO TID PRN (Reason: anxiety) spironolactone 50 mg tablet 50 mg PO DAILY insulin glargine [Lantus Solostar U-100 Insulin] 100 unit/mL (3 mL) insulin pen 1 unit SUBCUT DAILY prochlorperazine maleate 10 mg tablet 10 mg PO DAILY PRN (Reason: anxiety) ondansetron 4 mg tablet,disintegrating 4 mg PO Q6H PRN (Reason: nausea and vomiting) Qty: 20 0RF hyoscyamine sulfate [Levsin/SL] 0.125 mg tablet, sublingual 0.125 mg PO Q6H PRN (Reason: abdominal pain) Qty: 20 0RF Instructions: Constipation (ED) Referrals: Aubrey Salazar [Primary Care Provider] - 1 week
--- NOTE | 2023-02-10 02:08 | XR_ITS ---
The [address] [address] Patient Name: KATELYN KAY MRN: [id number] date: 1965 Sex: F Assigned Patient Location: ER Current Patient Location: ED.MAIN Accession/Order Number: [id number] Exam Date: 02/10/2023 02:35 Report Date: 02/10/2023 04:05 At the request of: CHEKO VILLARREAL Procedure: XR abdomen min 2V EXAM: XR abdomen min 2V HISTORY: constipation COMPARISON: Acute abdomen series dated 02/03/2023. TECHNIQUE: 2 views of the abdomen were obtained. FINDINGS: Cholecystectomy clips are noted. Vertebroplasty changes are seen at T12, L1, and L3. The imaged lung bases are clear. There are a few air-fluid levels within nondilated loops of bowel. There is a prominent amount of well-formed stool in the distal colon and rectum. No intraperitoneal free air is seen. No acute osseous abnormality is seen. XR/XR abdomen min 2V IMPRESSION: 1. Prominent amount of well-formed stool in the distal colon and rectum. 2. There are a few air-fluid levels within nondilated loops of bowel which could represent enteritis and diarrhea. Electronically authenticated by: Calixto LUDWIG Date: 02/10/2023 04:05
== END 2023-02-10 05:00 | disposition home or self-care (01) ==
PROVIDERS: Emergency Provider Internal Medicine
DX: K59.00 Constipation, unspecified (principal); Z79.84 Long term (current) use of oral hypoglycemic drugs; Z85.43 Personal history of malignant neoplasm of ovary; Z85.41 Personal history of malignant neoplasm of cervix uteri; Z87.442 Personal history of urinary calculi; E11.9 Type 2 diabetes mellitus without complications; I10 Essential (primary) hypertension; Z87.19 Personal history of other diseases of the digestive system; Z90.49 Acquired absence of other specified parts of digestive tract; Z90.721 Acquired absence of ovaries, unilateral
CPT/HCPCS: 74019; 99283

== ENCOUNTER 2023-02-11 14:07 | Emergency (ER) | payer OTHER, SELFPAY ==
[2023-02-11 14:12] VITALS: BP 124/85; PULSE 91; RESP 16; TEMP 36.9; O2SAT 95; BMI 28.5
[2023-02-11 14:34] LABS: Bilirubin Urine NEGATIVE (NEGATIVE); Blood Urine SMALL (NEGATIVE); Clarity Urine CLEAR (CLEAR); Color Urine LT. YELLOW (YELLOW); Glucose Urine UA >=1000 mg/dL (NEGATIVE); Ketones Urine NEGATIVE (NEGATIVE); Leukocyte Esterase Urine TRACE (NEGATIVE); Nitrite Urine NEGATIVE (NEGATIVE); Protein Urine NEGATIVE (NEG/TRACE); Specific Gravity Urine <=1.005 (1.005-1.025); Urobilinogen Urine 0.2 EU/dL (0.2-1.0); pH Urine 5.5 (5.0-9.0)
--- NOTE | 2023-02-11 14:37 | ED_ITS ---
Documented by User: SERGO Jimenez 02/11/23 16:28 HPI - General Adult General Chief complaint: Abdominal Pain Stated complaint: LOWER ABDOMINAL PAIN Time Seen by Provider: 02/11/23 14:10 Source: patient Mode of arrival: walk-in Limitations: no limitations History of Present Illness HPI narrative: patient is a 57-year-old female presents to the Emergency Room with concerns of left lower quadrant abdominal pain. Patient states she has been constipated for several days with irritable bowel syndrome, seen in the Emergency Room last night with x-ray, patient reports shortly after leaving she developed pain in the left lower quadrant and has been unrelenting. She reports a remote history of kidney stones. Patient states she has had multiple bowel movements since her Emergency Room visit but no relief of pain in the left lower quadrant/left flank. Patient admits to having burning and urgency with urination. Past forty- eight hours. She has medication for nausea but denies any vomiting. Patient appears in no distress but reports she came back because of pain developing despite moving her bowels. she denies any blood in her stools Onset (ago): day(s) Radiation: Reports abdomen and flank Quality: Reports aching, sharp and constant Related Data Home Medications Medication Instructions Recorded Confirmed alprazolam 0.25 mg tablet 0.25 mg PO TID PRN anxiety 09/03/22 02/02/23 glipizide 5 mg tablet, extended 5 mg PO DAILY 09/03/22 02/10/23 release 24 hr insulin glargine 100 unit/mL (3 1 unit subcut DAILY 09/03/22 02/02/23 mL) subcutaneous pen (Lantus Solostar U-100 Insulin) metformin 500 mg tablet 500 mg PO BID 09/03/22 02/10/23 spironolactone 50 mg tablet 50 mg PO DAILY 09/03/22 02/10/23 prochlorperazine maleate 10 mg 10 mg PO DAILY PRN anxiety 02/10/23 02/10/23 tablet Previous Rx's Medication Instructions Recorded hyoscyamine sulfate 0.125 mg 0.125 mg PO Q6H PRN abdominal pain 02/03/23 sublingual tablet (Levsin/SL) #20 tabs ondansetron 4 mg disintegrating 4 mg PO Q6H PRN nausea and 02/03/23 tablet vomiting #20 tabs Allergies Allergy/AdvReac Type Severity Reaction Status Date / Time Penicillins Allergy Unknown Verified 02/11/23 14:17 albuterol Allergy Swelling Verified 02/11/23 14:17 of Lip/Tongue/Throat empagliflozin AdvReac Mild Nausea Verified 02/11/23 14:17 [From Jardiance] amoxicillin AdvReac Verified 02/11/23 14:17 ibuprofen [From Motrin] AdvReac Verified 02/11/23 14:17 loratadine AdvReac Verified 02/11/23 14:17 Review of Systems ROS Constitutional Denies: fever or chills Ears, nose, mouth, and throat Denies: throat pain Cardiovascular Denies: chest pain or palpitations Respiratory Denies: shortness of breath or cough Gastrointestinal Reports: abdominal pain, nausea and constipation; Denies: vomiting, coffee grounds in vomit, heartburn or diarrhea Genitourinary Reports: painful urination, urinary frequency and urinary urgency Musculoskeletal Denies: back pain Integumentary/Breast Denies: rash Psychiatric Denies: anxiety Allergic/Immunologic Denies: hives PFSH PFS Medical History (Updated 02/11/23 @ 16:27 by SERGO Jimenez) Hx of ovarian cancer ?Z85.43 - Personal history of malignant neoplasm of ovary (ICD-10) Hx of cervical cancer ?Z85.41 - Personal history of malignant neoplasm of cervix uteri (ICD-10) Hx of renal calculi ?Z87.442 - Personal history of urinary calculi (ICD-10) History of COPD ?Z87.09 - Personal history of other diseases of the respiratory system (ICD- 10) IDDM (insulin dependent diabetes mellitus) Hx of gastroesophageal reflux (GERD) ?Z87.19 - Personal history of other diseases of the digestive system (ICD-10) Hx of cardiac murmur ?Z86.79 - Personal history of other diseases of the circulatory system (ICD- 10) Hypertension ?I10 - Essential (primary) hypertension (ICD-10) Hx of irritable bowel syndrome ?Z87.19 - Personal history of other diseases of the digestive system (ICD-10) History of asthma ?Z87.09 - Personal history of other diseases of the respiratory system (ICD- 10) Hx of sleep apnea ?Z86.69 - Personal history of other diseases of the nervous system and sense organs (ICD-10) Surgical History (Updated 09/18/22 @ 13:40 by Sarbjit Kauffman) Hx of tonsillectomy ?Z90.89 - Acquired absence of other organs (ICD-10) Hx laparoscopic cholecystectomy ?Z90.49 - Acquired absence of other specified parts of digestive tract (ICD- 10) Hx of arthroscopy of shoulder ?Z98.890 - Other specified postprocedural states (ICD-10) Hx of unilateral oophorectomy ?Z90.721 - Acquired absence of ovaries, unilateral (ICD-10) History of loop electrosurgical excision procedure (LEEP) ?Z98.890 - Other specified postprocedural states (ICD-10) Social History Smoking status: Never smoker Exam Narrative Exam Narrative: Nurses notes and vital signs reviewed and patient is not hypoxic. General: The patient appears well and in no apparent distress. Patient is resting comfortably on cart. Skin: Warm, dry, no pallor noted. Head: Normocephalic, atraumatic Neck: Supple, trachea mid-line, no tenderness, no lymphadenopathy Eye: Pupils are equal, round and reactive to light, EOMI Ears, Nose, Mouth, and Throat: TM are clear, normal light reflex, oral mucosa is moist, no posterior oropharynx erythema or hypertrophy, uvula is mid-line Cardiovascular: Regular Rate and Rhythm Respiratory: Patient is in no distress, no accessory muscle use, lungs are clear to auscultation, no wheezing, rales or rhonchi. Chest Wall: no tenderness Back: non-tender, no CVA tenderness, tenderness left lower back noted Musculoskeletal: normal ROM, no tenderness, no swelling GI: Normal bowel sounds, positive tenderness left lower quadrant., no masses appreciated. No rebound, guarding, or rigidity noted. Neurological: A&O x4 Psychiatric: Cooperative Constitutional Vital Signs, click to edit/add: Last Vital Signs Temp 98.5 F 02/11/23 14:12 Pulse 91 H 02/11/23 14:12 Resp 16 02/11/23 14:12 BP 124/85 02/11/23 14:12 Pulse Ox 95 02/11/23 14:12 O2 Del Method Room Air 02/11/23 14:12 Course Vital Signs Vital signs: Vital Signs Temperature 98.5 F 02/11/23 14:12 Pulse Rate 91 H 02/11/23 14:12 Respiratory Rate 16 02/11/23 14:12 Blood Pressure 124/85 02/11/23 14:12 Pulse Oximetry 95 02/11/23 14:12 Oxygen Delivery Method Room Air 02/11/23 14:12 Temperature 98.5 F 02/11/23 14:12 Pulse Rate 91 H 02/11/23 14:12 Respiratory Rate 16 02/11/23 14:12 Blood Pressure 124/85 02/11/23 14:12 Pulse Oximetry 95 02/11/23 14:12 Oxygen Delivery Method Room Air 02/11/23 14:12 Medical Decision Making MDM Narrative Medical decision making narrative: patient presents with history of remote kidney stones, known irritable bowel syndrome and last colonoscopy reported five years ago. Patient states she developed pain after leaving the Emergency Room yesterday which has not relieved despite having several bowel movements. Discussed concern for diverticulitis or kidney stone given her continued symptoms. Vital signs reviewed. Patient agreeable to CT scan and laboratory studies. We discussed her ALLERGY to Motrin which causes gastrointestinal bleeding she is okay with having IV Toradol. discussed CT findings with patient, need for follow-up CT of the chest with PCP as an outpatient. Faint calcification left kidney but no evidence of urolithiasis, bilateral femoral head AVN changes but no reproducible hip pain today at bedside. patient noted to have significantly elevated blood sugar, impaired renal function compared to prior studies earlier in the year, patient given 2 L IV normal saline, We discussed patient's dehydration, need for follow-up with family doctor, she is given eight units of insulin subcutaneous and we'll continue her normal medi cations at home. Her ketones and acetone was normal. She is agreeable to return to the Emergency Room symptoms worsen or new symptoms develop, shins blood sugar trending down, discussed diet at home, medication and need to follow-up with PCP for repeat labs and monitoring. orthopedists Tuesday 9:30 AM The patient is to followup with primary care physician in next 2-3 days or to return to the emergency department should any of the signs or symptoms worsen or new symptoms develop. Patient had questions answered. The patient agrees with the following Diagnosis and Treatment plan and the patient will be discharged home. Lab Data Lab results reviewed: Yes I reviewed the patient's lab results Labs: Lab Results 02/11/23 02/11/23 02/11/23 Range/Units 14:15 14:50 15:44 WBC 7.2 (4.0-11.0) 10^3/uL RBC 4.75 (4.20-5.40) 10^6/uL Hgb 14.4 (12.0-16.0) g/dL Hct 43.8 (36.0-48.0) % MCV 92.2 (81.0-99.0) fL MCH 30.3 (26.7-34.0) pg MCHC 32.9 (29.9-35.2) g/dL RDW 12.7 (11.0-15.0) % Plt Count 120 L (150-450) 10^3/uL MPV 12.3 (9.5-13.5) fL Neut % (Auto) 61.8 (43.0-75.0) % Lymph % (Auto) 32.1 (20.5-60.0) % [place] % (Auto) 4.6 (1.7-12.0) % Eos % (Auto) 0.8 L (0.9-7.0) % Baso % (Auto) 0.4 (0.2-2.0) % Neut # (Auto) 4.5 (1.4-6.5) 10^3/uL Lymph # (Auto) 2.3 (1.2-3.8) 10^3/uL [place] # (Auto) 0.3 (0.3-0.8) 10^3/uL Eos # (Auto) 0.1 (0.0-0.7) 10^3/uL Baso # (Auto) 0.0 (0.0-0.1) 10^3/uL Abs Immat Gran (auto) 0.02 (0.00-0.03) 10^3/uL Imm/Tot Granulo (auto) 0.3 (0.0-0.5) % Sodium 129 L (136-145) mmol/L Potassium 4.5 (3.5-5.1) mmol/L Chloride 94 L (98-107) mmol/L Carbon Dioxide 22.8 (21.0-32.0) mmol/L Anion Gap 16.7 BUN 17.0 (7.0-18.0) mg/dL Creatinine 1.53 H (0.55-1.02) mg/dL Est GFR ( Amer) 42 L (>=60) Est GFR (Non-Af Amer) 35 L (>=60) BUN/Creatinine Ratio 11.1 Glucose 621 H* (74-106) mg/dL Calcium 9.1 (8.5-10.1) mg/dL Total Bilirubin 1.1 H (0.2-1.0) mg/dL AST 41 H (15-37) U/L ALT 43 (14-59) U/L Alkaline Phosphatase 88 (46-116) U/L Troponin I High Sens 5.5 (4.0-51.3) pg/mL Total Protein 7.4 (6.4-8.2) g/dL Albumin 3.6 (3.4-5.0) g/dL Globulin 3.8 g/dL Albumin/Globulin Ratio 0.9 Lipase 22.0 (16.0-77.0) U/L Urine Color Lt. yellow (YELLOW) Urine Clarity Clear (CLEAR) Urine pH 5.5 (5.0-9.0) Ur Specific [place] <=1.005 A (1.005-1.025) Urine Protein Negative (NEG/TRACE) mg/dL Urine Glucose (UA) >=1000 A (NEGATIVE) mg/dL Urine Ketones Negative (NEGATIVE) mg/dL Urine Occult Blood Small A (NEGATIVE) Urine Nitrite Negative (NEGATIVE) Urine Bilirubin Negative (NEGATIVE) Urine Urobilinogen 0.2 (0.2-1.0) EU/dL Ur Leukocyte Esterase Trace A (NEGATIVE) Urine RBC 5-10 A (0-2) #/HPF Urine WBC 5-10 A (NONE SEEN) #/HPF Ur Squamous Epith Cells Few A (NONE/RARE) #/LPF Urine Crystals None seen (None Seen) #/HPF Urine Bacteria Small A (NONE SEEN) #/HPF Urine Casts None seen (NONE SEEN) #/LPF Urine Mucus None seen (NONE SEEN) Ur Culture Indicated? Yes Urine HCG, Qual Negative (NEGATIVE) Acetone, Qual Negative (NEGATIVE) POC Glucose (74-106) mg/dL 02/11/23 Range/Units 16:26 WBC (4.0-11.0) 10^3/uL RBC (4.20-5.40) 10^6/uL Hgb (12.0-16.0) g/dL Hct (36.0-48.0) % MCV (81.0-99.0) fL MCH (26.7-34.0) pg MCHC (29.9-35.2) g/dL RDW (11.0-15.0) % Plt Count (150-450) 10^3/uL MPV (9.5-13.5) fL Neut % (Auto) (43.0-75.0) % Lymph % (Auto) (20.5-60.0) % [place] % (Auto) (1.7-12.0) % Eos % (Auto) (0.9-7.0) % Baso % (Auto) (0.2-2.0) % Neut # (Auto) (1.4-6.5) 10^3/uL Lymph # (Auto) (1.2-3.8) 10^3/uL [place] # (Auto) (0.3-0.8) 10^3/uL Eos # (Auto) (0.0-0.7) 10^3/uL Baso # (Auto) (0.0-0.1) 10^3/uL Abs Immat Gran (auto) (0.00-0.03) 10^3/uL Imm/Tot Granulo (auto) (0.0-0.5) % Sodium (136-145) mmol/L Potassium (3.5-5.1) mmol/L Chloride (98-107) mmol/L Carbon Dioxide (21.0-32.0) mmol/L Anion Gap BUN (7.0-18.0) mg/dL Creatinine (0.55-1.02) mg/dL Est GFR ( Amer) (>=60) Est GFR (Non-Af Amer) (>=60) BUN/Creatinine Ratio Glucose (74-106) mg/dL Calcium (8.5-10.1) mg/dL Total Bilirubin (0.2-1.0) mg/dL AST (15-37) U/L ALT (14-59) U/L Alkaline Phosphatase (46-116) U/L Troponin I High Sens (4.0-51.3) pg/mL Total Protein (6.4-8.2) g/dL Albumin (3.4-5.0) g/dL Globulin g/dL Albumin/Globulin Ratio Lipase (16.0-77.0) U/L Urine Color (YELLOW) Urine Clarity (CLEAR) Urine pH (5.0-9.0) Ur Specific [place] (1.005-1.025) Urine Protein (NEG/TRACE) mg/dL Urine Glucose (UA) (NEGATIVE) mg/dL Urine Ketones (NEGATIVE) mg/dL Urine Occult Blood (NEGATIVE) Urine Nitrite (NEGATIVE) Urine Bilirubin (NEGATIVE) Urine Urobilinogen (0.2-1.0) EU/dL Ur Leukocyte Esterase (NEGATIVE) Urine RBC (0-2) #/HPF Urine WBC (NONE SEEN) #/HPF Ur Squamous Epith Cells (NONE/RARE) #/LPF Urine Crystals (None Seen) #/HPF Urine Bacteria (NONE SEEN) #/HPF Urine Casts (NONE SEEN) #/LPF Urine Mucus (NONE SEEN) Ur Culture Indicated? Urine HCG, Qual (NEGATIVE) Acetone, Qual (NEGATIVE) POC Glucose 457 H (74-106) mg/dL Imaging Data CT scan - abdomen: Radiologist's impression: At the request of: ZOHRA URIBE Procedure: CT abdomen pelvis wo con EXAM: CT abdomen pelvis wo con HISTORY: left flank LLQ, r/o stone diverticulitis COMPARISON: Abdomen study dated 02/10/2023 TECHNIQUE: CT abdomen and CT pelvis studies were performed without the use of intravenous contrast. FINDINGS: Abdomen: Minimal atelectatic and/or fibrotic changes in the lower lung pineda. Small 3 mm subpleural density at the level of the left lower lung field laterally most likely representing granuloma, fibrosis or focal pleural thickening. Other possibility would be less likely. Optional follow-up CT chest study in one year may be considered to assess stability. Finding noted on series 3 axial image 21. Minimal pericardial effusion. Views of the liver and spleen fail to demonstrate evidence of focal mass in either organ. Minimal fatty infiltration of the liver suggested. Patient is status post cholecystectomy. Adrenal glands appear grossly unremarkable. Mild to moderate atrophy and moderate fatty infiltration of the pancreas without focal mass or ductal dilatation. Stomach appears grossly unremarkable. Bowel loops appear grossly unremarkable. Atherosclerotic calcifications within portions of the abdominal aorta. No evidence of aneurysm. No evidence of adenopathy in the retroperitoneum. No obvious renal mass or obstructive uropathy. Small faint 1 or 2 mm sized nonobstructive calculus in the medial left kidney and series 3 axial image 53. Pelvis: Tiny fat filled umbilical hernia without bowel content. No evidence of ureteral or bladder calculus. No evidence of obstructive uropathy. No obvious bladder mass or wall thickening. Patient status post hysterectomy. No obvious adnexal mass. A few calcifications compatible with phleboliths. Perirectal fat planes appear grossly intact. Bowel loops appear grossly unremarkable. No obvious diverticulosis or diverticulitis. Atherosclerotic calcifications within portions of the iliac arteries. No evidence of aneurysm. No evidence of adenopathy. The appendix is not definitely identified, no evidence of appendicitis. Mild height loss of T12, L1 and L3 vertebral bodies with post kyphoplasty changes which appear unremarkable. [id number] degenerative changes in the lumbar spine. Small areas of curvilinear sclerosis with faint lucency at the superior aspect of both femoral heads compatible with early/mild avascular necrosis. IMPRESSION: CT abdomen and CT pelvis studies demonstrate small nonobstructive left renal calculus. No evidence of ureteral or bladder calculus. No evidence of obstructive uropathy suggested. No obvious acute bowel abnormality suggested. Tiny fat filled umbilical hernia. Minimal fatty infiltration of the liver suggested. Minimal pericardial effusion. Small likely benign subpleural nodular density in the left lower lung field. Optional follow-up CT chest study in one year may be considered to assess stability. 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 Electronically authenticated by: EDILIA MARADIAGA Date: 02/11/2023 15:36 Discharge Plan Discharge Chief Complaint: Abdominal Pain Clinical Impression: Acute hyperglycemia, Abdominal pain, Acute dehydration, Bilateral hip pain, Incidental lung nodule Patient Disposition: Home, Self-Care Time of Disposition Decision: 16:25 Condition: Good Mode of Transportation: Private Vehicle Prescriptions / Home Meds: No Action metformin 500 mg tablet 500 mg PO BID glipizide 5 mg tablet extended release 24hr 5 mg PO DAILY alprazolam 0.25 mg tablet 0.25 mg PO TID PRN (Reason: anxiety) spironolactone 50 mg tablet 50 mg PO DAILY insulin glargine [Lantus Solostar U-100 Insulin] 100 unit/mL (3 mL) insulin pen 1 unit SUBCUT DAILY prochlorperazine maleate 10 mg tablet 10 mg PO DAILY PRN (Reason: anxiety) ondansetron 4 mg tablet,disintegrating 4 mg PO Q6H PRN (Reason: nausea and vomiting) Qty: 20 0RF hyoscyamine sulfate [Levsin/SL] 0.125 mg tablet, sublingual 0.125 mg PO Q6H PRN (Reason: abdominal pain) Qty: 20 0RF Instructions: Abdominal Pain (ED) Additional Instructions: appointment with orthopedics for Tuesday to discuss chronic hip pain with CT concerning for possible AVN. - appointment with family doctor to recheck blood sugar and discussed monitoring of incidental lung nodule. - Check blood sugars throughout the weekend, return to Emergency Room if symptoms worsen or new symptoms develop Stand Alone Forms: Portal Instructions Referrals: Mike Tejeda MD [Physician] - 02/14/23 9:30 am Aubrey Salazar [Primary Care Provider] - As soon as possible Discharge Date/Time: 02/11/23 17:17 Documented by User: Alberto Choi MD 02/11/23 20:13 HPI - General Adult General Chief complaint: Abdominal Pain Stated complaint: LOWER ABDOMINAL PAIN Time Seen by Provider: 02/11/23 14:10 Related Data Home Medications Medication Instructions Recorded Confirmed alprazolam 0.25 mg tablet 0.25 mg PO TID PRN anxiety 09/03/22 02/02/23 glipizide 5 mg tablet, extended 5 mg PO DAILY 09/03/22 02/10/23 release 24 hr insulin glargine 100 unit/mL (3 1 unit subcut DAILY 09/03/22 02/02/23 mL) subcutaneous pen (Lantus Solostar U-100 Insulin) metformin 500 mg tablet 500 mg PO BID 09/03/22 02/10/23 spironolactone 50 mg tablet 50 mg PO DAILY 09/03/22 02/10/23 prochlorperazine maleate 10 mg 10 mg PO DAILY PRN anxiety 02/10/23 02/10/23 tablet Previous Rx's Medication Instructions Recorded hyoscyamine sulfate 0.125 mg 0.125 mg PO Q6H PRN abdominal pain 02/03/23 sublingual tablet (Levsin/SL) #20 tabs ondansetron 4 mg disintegrating 4 mg PO Q6H PRN nausea and 02/03/23 tablet vomiting #20 tabs Allergies Allergy/AdvReac Type Severity Reaction Status Date / Time Penicillins Allergy Unknown Verified 02/11/23 14:17 albuterol Allergy Swelling Verified 02/11/23 14:17 of Lip/Tongue/Throat empagliflozin AdvReac Mild Nausea Verified 02/11/23 14:17 [From Jardiance] amoxicillin AdvReac Verified 02/11/23 14:17 ibuprofen [From Motrin] AdvReac Verified 02/11/23 14:17 loratadine AdvReac Verified 02/11/23 14:17 PFSH PFS Medical History (Updated 02/11/23 @ 16:27 by SERGO Jimenez) Hx of ovarian cancer ?Z85.43 - Personal history of malignant neoplasm of ovary (ICD-10) Hx of cervical cancer ?Z85.41 - Personal history of malignant neoplasm of cervix uteri (ICD-10) Hx of renal calculi ?Z87.442 - Personal history of urinary calculi (ICD-10) History of COPD ?Z87.09 - Personal history of other diseases of the respiratory system (ICD- 10) IDDM (insulin dependent diabetes mellitus) Hx of gastroesophageal reflux (GERD) ?Z87.19 - Personal history of other diseases of the digestive system (ICD-10) Hx of cardiac murmur ?Z86.79 - Personal history of other diseases of the circulatory system (ICD- 10) Hypertension ?I10 - Essential (primary) hypertension (ICD-10) Hx of irritable bowel syndrome ?Z87.19 - Personal history of other diseases of the digestive system (ICD-10) History of asthma ?Z87.09 - Personal history of other diseases of the respiratory system (ICD- 10) Hx of sleep apnea ?Z86.69 - Personal history of other diseases of the nervous system and sense organs (ICD-10) Surgical History (Updated 09/18/22 @ 13:40 by Sarbjit Kauffman) Hx of tonsillectomy ?Z90.89 - Acquired absence of other organs (ICD-10) Hx laparoscopic cholecystectomy ?Z90.49 - Acquired absence of other specified parts of digestive tract (ICD- 10) Hx of arthroscopy of shoulder ?Z98.890 - Other specified postprocedural states (ICD-10) Hx of unilateral oophorectomy ?Z90.721 - Acquired absence of ovaries, unilateral (ICD-10) History of loop electrosurgical excision procedure (LEEP) ?Z98.890 - Other specified postprocedural states (ICD-10) Social History Smoking status: Never smoker Exam Constitutional Vital Signs, click to edit/add: Last Vital Signs Temp 98.5 F 02/11/23 14:12 Pulse 91 H 02/11/23 14:12 Resp 16 02/11/23 14:12 BP 124/85 02/11/23 14:12 Pulse Ox 95 02/11/23 14:12 O2 Del Method Room Air 02/11/23 14:12 Course Vital Signs Vital signs: Vital Signs Temperature 98.5 F 02/11/23 14:12 Pulse Rate 91 H 02/11/23 14:12 Respiratory Rate 16 02/11/23 14:12 Blood Pressure 124/85 02/11/23 14:12 Pulse Oximetry 95 02/11/23 14:12 Oxygen Delivery Method Room Air 02/11/23 14:12 Temperature 98.5 F 02/11/23 14:12 Pulse Rate 91 H 02/11/23 14:12 Respiratory Rate 16 02/11/23 14:12 Blood Pressure 124/85 02/11/23 14:12 Pulse Oximetry 95 02/11/23 14:12 Oxygen Delivery Method Room Air 02/11/23 14:12 Medical Decision Making MDM Narrative Medical decision making narrative: patient presents with history of remote kidney stones, known irritable bowel syndrome and last colonoscopy reported five years ago. Patient states she developed pain after leaving the Emergency Room yesterday which has not relieved despite having several bowel movements. Discussed concern for diverticulitis or kidney stone given her continued symptoms. Vital signs reviewed. Patient agreeable to CT scan and laboratory studies. We discussed her ALLERGY to Motrin which causes gastrointestinal bleeding she is okay with having IV Toradol. discussed CT findings with patient, need for follow-up CT of the chest with PCP as an outpatient. Faint calcification left kidney but no evidence of urolithiasis, bilateral femoral head AVN changes but no reproducible hip pain today at bedside. patient noted to have significantly elevated blood sugar, impaired renal function compared to prior studies earlier in the year, patient given 2 L IV normal saline, We discussed patient's dehydration, need for follow-up with family doctor, she is given eight units of insulin subcutaneous and we'll continue her normal medications at home. Her ketones and acetone was normal. She is agreeable to return to the Emergency Room symptoms worsen or new symptoms develop, shins blood sugar trending down, discussed diet at home, medication and need to follow-up with PCP for repeat labs and monitoring. orthopedists Tuesday 9:30 AM The patient is to followup with primary care physician in next 2-3 days or to return to the emergency department should any of the signs or symptoms worsen or new symptoms develop. Patient had questions answered. The patient agrees with the following Diagnosis and Treatment plan and the patient will be discharged home. I, Dr Choi, have reviewed the above progress note and course of action in the ER; agree with the above. I have personally seen and evaluated this patient, gone over history and physical, and discussed disposition and treatment plan with the patient. Lab Data Labs: Lab Results 02/11/23 02/11/23 02/11/23 Range/Units 14:15 14:50 15:44 WBC 7.2 (4.0-11.0) 10^3/uL RBC 4.75 (4.20-5.40) 10^6/uL Hgb 14.4 (12.0-16.0) g/dL Hct 43.8 (36.0-48.0) % MCV 92.2 (81.0-99.0) fL MCH 30.3 (26.7-34.0) pg MCHC 32.9 (29.9-35.2) g/dL RDW 12.7 (11.0-15.0) % Plt Count 120 L (150-450) 10^3/uL MPV 12.3 (9.5-13.5) fL Neut % (Auto) 61.8 (43.0-75.0) % Lymph % (Auto) 32.1 (20.5-60.0) % [place] % (Auto) 4.6 (1.7-12.0) % Eos % (Auto) 0.8 L (0.9-7.0) % Baso % (Auto) 0.4 (0.2-2.0) % Neut # (Auto) 4.5 (1.4-6.5) 10^3/uL Lymph # (Auto) 2.3 (1.2-3.8) 10^3/uL [place] # (Auto) 0.3 (0.3-0.8) 10^3/uL Eos # (Auto) 0.1 (0.0-0.7) 10^3/uL Baso # (Auto) 0.0 (0.0-0.1) 10^3/uL Abs Immat Gran (auto) 0.02 (0.00-0.03) 10^3/uL Imm/Tot Granulo (auto) 0.3 (0.0-0.5) % Sodium 129 L (136-145) mmol/L Potassium 4.5 (3.5-5.1) mmol/L Chloride 94 L (98-107) mmol/L Carbon Dioxide 22.8 (21.0-32.0) mmol/L Anion Gap 16.7 BUN 17.0 (7.0-18.0) mg/dL Creatinine 1.53 H (0.55-1.02) mg/dL Est GFR ( Amer) 42 L (>=60) Est GFR (Non-Af Amer) 35 L (>=60) BUN/Creatinine Ratio 11.1 Glucose 621 H* (74-106) mg/dL Calcium 9.1 (8.5-10.1) mg/dL Total Bilirubin 1.1 H (0.2-1.0) mg/dL AST 41 H (15-37) U/L ALT 43 (14-59) U/L Alkaline Phosphatase 88 (46-116) U/L Troponin I High Sens 5.5 (4.0-51.3) pg/mL Total Protein 7.4 (6.4-8.2) g/dL Albumin 3.6 (3.4-5.0) g/dL Globulin 3.8 g/dL Albumin/Globulin Ratio 0.9 Lipase 22.0 (16.0-77.0) U/L Urine Color Lt. yellow (YELLOW) Urine Clarity Clear (CLEAR) Urine pH 5.5 (5.0-9.0) Ur Specific [place] <=1.005 A (1.005-1.025) Urine Protein Negative (NEG/TRACE) mg/dL Urine Glucose (UA) >=1000 A (NEGATIVE) mg/dL Urine Ketones Negative (NEGATIVE) mg/dL Urine Occult Blood Small A (NEGATIVE) Urine Nitrite Negative (NEGATIVE) Urine Bilirubin Negative (NEGATIVE) Urine Urobilinogen 0.2 (0.2-1.0) EU/dL Ur Leukocyte Esterase Trace A (NEGATIVE) Urine RBC 5-10 A (0-2) #/HPF Urine WBC 5-10 A (NONE SEEN) #/HPF Ur Squamous Epith Cells Few A (NONE/RARE) #/LPF Urine Crystals None seen (None Seen) #/HPF Urine Bacteria Small A (NONE SEEN) #/HPF Urine Casts None seen (NONE SEEN) #/LPF Urine Mucus None seen (NONE SEEN) Ur Culture Indicated? Yes Urine HCG, Qual Negative (NEGATIVE) Acetone, Qual Negative (NEGATIVE) POC Glucose (74-106) mg/dL 02/11/23 Range/Units 16:26 WBC (4.0-11.0) 10^3/uL RBC (4.20-5.40) 10^6/uL Hgb (12.0-16.0) g/dL Hct (36.0-48.0) % MCV (81.0-99.0) fL MCH (26.7-34.0) pg MCHC (29.9-35.2) g/dL RDW (11.0-15.0) % Plt Count (150-450) 10^3/uL MPV (9.5-13.5) fL Neut % (Auto) (43.0-75.0) % Lymph % (Auto) (20.5-60.0) % [place] % (Auto) (1.7-12.0) % Eos % (Auto) (0.9-7.0) % Baso % (Auto) (0.2-2.0) % Neut # (Auto) (1.4-6.5) 10^3/uL Lymph # (Auto) (1.2-3.8) 10^3/uL [place] # (Auto) (0.3-0.8) 10^3/uL Eos # (Auto) (0.0-0.7) 10^3/uL Baso # (Auto) (0.0-0.1) 10^3/uL Abs Immat Gran (auto) (0.00-0.03) 10^3/uL Imm/Tot Granulo (auto) (0.0-0.5) % Sodium (136-145) mmol/L Potassium (3.5-5.1) mmol/L Chloride (98-107) mmol/L Carbon Dioxide (21.0-32.0) mmol/L Anion Gap BUN (7.0-18.0) mg/dL Creatinine (0.55-1.02) mg/dL Est GFR ( Amer) (>=60) Est GFR (Non-Af Amer) (>=60) BUN/Creatinine Ratio Glucose (74-106) mg/dL Calcium (8.5-10.1) mg/dL Total Bilirubin (0.2-1.0) mg/dL AST (15-37) U/L ALT (14-59) U/L Alkaline Phosphatase (46-116) U/L Troponin I High Sens (4.0-51.3) pg/mL Total Protein (6.4-8.2) g/dL Albumin (3.4-5.0) g/dL Globulin g/dL Albumin/Globulin Ratio Lipase (16.0-77.0) U/L Urine Color (YELLOW) Urine Clarity (CLEAR) Urine pH (5.0-9.0) Ur Specific [place] (1.005-1.025) Urine Protein (NEG/TRACE) mg/dL Urine Glucose (UA) (NEGATIVE) mg/dL Urine Ketones (NEGATIVE) mg/dL Urine Occult Blood (NEGATIVE) Urine Nitrite (NEGATIVE) Urine Bilirubin (NEGATIVE) Urine Urobilinogen (0.2-1.0) EU/dL Ur Leukocyte Esterase (NEGATIVE) Urine RBC (0-2) #/HPF Urine WBC (NONE SEEN) #/HPF Ur Squamous Epith Cells (NONE/RARE) #/LPF Urine Crystals (None Seen) #/HPF Urine Bacteria (NONE SEEN) #/HPF Urine Casts (NONE SEEN) #/LPF Urine Mucus (NONE SEEN) Ur Culture Indicated? Urine HCG, Qual (NEGATIVE) Acetone, Qual (NEGATIVE) POC Glucose 457 H (74-106) mg/dL Discharge Plan Discharge Chief Complaint: Abdominal Pain Clinical Impression: Acute hyperglycemia, Abdominal pain, Acute dehydration, Bilateral hip pain, Incidental lung nodule Patient Disposition: Home, Self-Care Time of Disposition Decision: 16:25 Condition: Good Mode of Transportation: Private Vehicle Prescriptions / Home Meds: No Action metformin 500 mg tablet 500 mg PO BID glipizide 5 mg tablet extended release 24hr 5 mg PO DAILY alprazolam 0.25 mg tablet 0.25 mg PO TID PRN (Reason: anxiety) spironolactone 50 mg tablet 50 mg PO DAILY insulin glargine [Lantus Solostar U-100 Insulin] 100 unit/mL (3 mL) insulin pen 1 unit SUBCUT DAILY prochlorperazine maleate 10 mg tablet 10 mg PO DAILY PRN (Reason: anxiety) ondansetron 4 mg tablet,disintegrating 4 mg PO Q6H PRN (Reason: nausea and vomiting) Qty: 20 0RF hyoscyamine sulfate [Levsin/SL] 0.125 mg tablet, sublingual 0.125 mg PO Q6H PRN (Reason: abdominal pain) Qty: 20 0RF Instructions: Abdominal Pain (ED) Additional Instructions: appointment with orthopedics for Tuesday to discuss chronic hip pain with CT concerning for possible AVN. - appointment with family doctor to recheck blood sugar and discussed monitoring of incidental lung nodule. - Check blood sugars throughout the weekend, return to Emergency Room if symptoms worsen or new symptoms develop Stand Alone Forms: Portal Instructions Referrals: Mike Tejeda MD [Physician] - 02/14/23 9:30 am Aubrey Salazar [Primary Care Provider] - As soon as possible Discharge Date/Time: 02/11/23 17:17
[2023-02-11 14:39] LABS: HCG Qualitative Urine* NEGATIVE (NEGATIVE)
[2023-02-11 14:41] LABS: Urine Microscopic Indicated YES
[2023-02-11 14:53] LABS: Bacteria Urine SMALL #/HPF (NONE SEEN); Cast Seen? NONE SEEN #/LPF (NONE SEEN); Crystals Seen? None Seen #/HPF (None Seen); Mucus Urine NONE SEEN (NONE SEEN); Squamous Epithelial Cell Urine FEW #/LPF (NONE/RARE); Urine Culture Indicated YES
[2023-02-11 15:03] LABS: Basophils Percent Auto 0.4 % (0.2-2.0); Eosinophils Absolute Auto 0.1 10^3/uL (0.0-0.7); Eosinophils Percent Auto 0.8 % (0.9-7.0); Hematocrit 43.8 % (36.0-48.0); Hemoglobin 14.4 g/dL (12.0-16.0); Immature Granulocytes Abs Auto 0.02 10^3/uL (0.00-0.03); Immature Granulocytes Pct Auto 0.3 % (0.0-0.5); Lymphocytes Absolute Auto 2.3 10^3/uL (1.2-3.8); Lymphocytes Percent Auto 32.1 % (20.5-60.0); Mean Corpuscular HGB Conc 32.9 g/dL (29.9-35.2); Mean Corpuscular Hemoglobin 30.3 pg (26.7-34.0); Mean Corpuscular Volume 92.2 fL (81.0-99.0); Mean Platelet Volume 12.3 fL (9.5-13.5); Monocytes Absolute Auto 0.3 10^3/uL (0.3-0.8); Monocytes Percent Auto 4.6 % (1.7-12.0); Neutrophils Absolute Auto 4.5 10^3/uL (1.4-6.5); Neutrophils Percent Auto 61.8 % (43.0-75.0); Platelet Count 120 10^3/uL (150-450); Red Blood Count 4.75 10^6/uL (4.20-5.40); Red Cell Distribution Width 12.7 % (11.0-15.0); White Blood Count 7.2 10^3/uL (4.0-11.0)
[2023-02-11] MEDS: KETOROLAC TROMETHAMINE 30 MG/ML VIAL IVP (15:05)
[2023-02-11] MEDS: FAMOTIDINE/PF 20 MG/2 ML VIAL IV (15:05)
--- NOTE | 2023-02-11 15:12 | CT_ITS ---
The [address] [address] Patient Name: KATELYN KHAN MRN: [id number] date: 1965 Sex: F Assigned Patient Location: ER Current Patient Location: ER Accession/Order Number: [id number] Exam Date: 02/11/2023 15:05 Report Date: 02/11/2023 15:36 At the request of: ZOHRA URIBE Procedure: CT abdomen pelvis wo con EXAM: CT abdomen pelvis wo con HISTORY: left flank LLQ, r/o stone diverticulitis COMPARISON: Abdomen study dated 02/10/2023 TECHNIQUE: CT abdomen and CT pelvis studies were performed without the use of intravenous contrast. FINDINGS: Abdomen: Minimal atelectatic and/or fibrotic changes in the lower lung pineda. Small 3 mm subpleural density at the level of the left lower lung field laterally most likely representing granuloma, fibrosis or focal pleural thickening. Other possibility would be less likely. Optional follow-up CT chest study in one year may be considered to assess stability. Finding noted on series 3 axial image 21. Minimal pericardial effusion. Views of the liver and spleen fail to demonstrate evidence of focal mass in either organ. Minimal fatty infiltration of the liver suggested. Patient is status post cholecystectomy. Adrenal glands appear grossly unremarkable. Mild to moderate atrophy and moderate fatty infiltration of the pancreas without focal mass or ductal dilatation. Stomach appears grossly unremarkable. Bowel loops appear grossly unremarkable. Atherosclerotic calcifications within portions of the abdominal aorta. No evidence of aneurysm. No evidence of adenopathy in the retroperitoneum. No obvious renal mass or obstructive uropathy. Small faint 1 or 2 mm sized nonobstructive calculus in the medial left kidney and series 3 axial image 53. Pelvis: Tiny fat filled umbilical hernia without bowel content. No evidence of ureteral or bladder calculus. No evidence of obstructive uropathy. No obvious bladder mass or wall thickening. Patient status post hysterectomy. No obvious adnexal mass. A few calcifications compatible with phleboliths. Perirectal fat planes appear grossly intact. Bowel loops appear grossly unremarkable. No obvious diverticulosis or diverticulitis. Atherosclerotic calcifications within portions of the iliac arteries. No evidence of aneurysm. No evidence of adenopathy. The appendix is not definitely identified, no evidence of appendicitis. Mild height loss of T12, L1 and L3 vertebral bodies with post kyphoplasty changes which appear unremarkable. [id number] degenerative changes in the lumbar spine. Small areas of curvilinear sclerosis with faint lucency at the superior aspect of both femoral heads compatible with early/mild avascular necrosis. CT/CT abdomen pelvis wo con IMPRESSION: CT abdomen and CT pelvis studies demonstrate small nonobstructive left renal calculus. No evidence of ureteral or bladder calculus. No evidence of obstructive uropathy suggested. No obvious acute bowel abnormality suggested. Tiny fat filled umbilical hernia. Minimal fatty infiltration of the liver suggested. Minimal pericardial effusion. Small likely benign subpleural nodular density in the left lower lung field. Optional follow-up CT chest study in one year may be considered to assess stability. 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 Electronically authenticated by: EDILIA MARADIAGA Date: 02/11/2023 15:36
[2023-02-11] MEDS: 0.9 % SODIUM CHLORIDE 1,000 ML 999 ML IV ×2 (15:24→16:30)
[2023-02-11 15:29] LABS: Alanine Aminotransferase 43 U/L (14-59); Albumin Globulin Ratio 0.9; Albumin Level 3.6 g/dL (3.4-5.0); Alkaline Phosphatase 88 U/L (46-116); Anion Gap 16.7; Aspartate Amino Transferase 41 U/L (15-37); BUN Creatinine Ratio 11.1; Bilirubin Total 1.1 mg/dL (0.2-1.0); Calcium 9.1 mg/dL (8.5-10.1); Carbon Dioxide 22.8 mmol/L (21.0-32.0); Chloride 94 mmol/L (98-107); Estimated GFR (African America 42 (>=60); Estimated GFR (Non-African Ame 35 (>=60); Globulin 3.8 g/dL; Potassium 4.5 mmol/L (3.5-5.1); Sodium 129 mmol/L (136-145); Total Protein 7.4 g/dL (6.4-8.2)
[2023-02-11 15:34] LABS: Glucose 621 mg/dL (74-106)
[2023-02-11 15:52] LABS: Troponin I High Sensitivity 5.5 pg/mL (4.0-51.3)
[2023-02-11 16:04] LABS: Acetone NEGATIVE (NEGATIVE)
[2023-02-11] MEDS: INSULIN REGULAR 300 UNITS/3 ML 8 UNIT SUBQ (16:28)
[2023-02-11 16:29] LABS: Glucometer 457 mg/dL (74-106)
== END 2023-02-11 17:17 | disposition home or self-care (01) ==
PROVIDERS: Personal Emergency Response Attendant; Emergency Provider Emergency Medicine
DX: E86.0 Dehydration (principal); R10.9 Unspecified abdominal pain; E11.65 Type 2 diabetes mellitus with hyperglycemia; M25.552 Pain in left hip; M25.551 Pain in right hip; K58.9 Irritable bowel syndrome, unspecified; R91.1 Solitary pulmonary nodule; I10 Essential (primary) hypertension; Z87.442 Personal history of urinary calculi; Z79.899 Other long term (current) drug therapy; Z79.84 Long term (current) use of oral hypoglycemic drugs; Z79.4 Long term (current) use of insulin; Z85.43 Personal history of malignant neoplasm of ovary; Z85.41 Personal history of malignant neoplasm of cervix uteri; Z90.49 Acquired absence of other specified parts of digestive tract; Z90.721 Acquired absence of ovaries, unilateral; Z98.890 Other specified postprocedural states
CPT/HCPCS: 36415; 74176; 80053; 81001; 82009; 83690; 84484; 84703; 85025; 87086; 87150; 87186; 96361; 96374; 96375; 99285

== ENCOUNTER 2023-02-14 10:00 | Outpatient (OUT) | payer OTHER, SELFPAY ==
--- NOTE | 2023-02-14 10:17 | XR_ITS ---
The [address] [address] Patient Name: KATELYN KHAN MRN: [id number] date: 1965 Sex: F Assigned Patient Location: [facility] Current Patient Location: [facility] Accession/Order Number: [id number] Exam Date: 02/14/2023 11:02 Report Date: 02/14/2023 16:02 At the request of: CASSY NOWAK Procedure: XR hip BI w PEL 1V EXAM: XR hip BI w PEL 1V HISTORY: Bilateral Hip Pain COMPARISON: CT pelvis study dated 02/11/2023. TECHNIQUE: Bilateral hip and AP view pelvis study was performed with 6 images obtained in total. FINDINGS: No definite acute fracture or dislocation. Minimal degenerative changes about the hip joints. The noted early and/or mild avascular necrosis changes of the femoral heads are not definitely identified likely due to difference in modality. Based on CT findings consideration of avascular necrosis remains. Sacroiliac joints appear grossly unremarkable. Moderate degenerative changes about the visualized lower lumbar spine. Post kyphoplasty changes at the L3 and L1 vertebral body levels again identified. Postoperative clips on the right superiorly. XR/XR hip BI w PEL 1V IMPRESSION: 1. Bilateral hip and AP view pelvis study demonstrates minimal degenerative change about the hip joints. Other degenerative changes as noted. 2. The early and/or mild avascular necrosis changes in the femoral heads noted on CT study not definitely identified on present study likely due to difference in modality. Based on CT findings the consideration of avascular necrosis remains. 3. No definite acute fracture or dislocation. 4. Follow-up as needed. Electronically authenticated by: EDILIA MARADIAGA Date: 02/14/2023 16:02
== END 2023-02-14 10:01 | disposition home or self-care (01) ==
LOC: RAD 10:01
PROVIDERS: Visit Provider Orthopaedic Surgery
DX: M25.551 Pain in right hip (principal); M25.552 Pain in left hip
CPT/HCPCS: 73523

== ENCOUNTER 2023-03-05 14:07 | Emergency (ER) | payer OTHER, SELFPAY ==
[2023-03-05 14:12] VITALS: BP 131/76; PULSE 68; RESP 14; TEMP 36.6; O2SAT 98; BMI 28.2
--- OUTSIDE RECORDS SUMMARY | 2023-03-05 14:16 | XMS_ITS | CCD ---
Author Name Unknown Address [address] [place] [address] Organization [facility] Care Team Providers Care Director Medical Safety Name Role Phone Rice, Vincenzo W Unavailable Unavailable Rice, Vincenzo W Unavailable Unavailable Rice, Vincenzo W Unavailable Unavailable NONE, XXXX Unavailable Unavailable Rice, Vincenzo W Unavailable Unavailable Rice, Vincenzo W Unavailable Unavailable Rice, Vincenzo W Unavailable Unavailable NONE, XXXX Unavailable Unavailable Keturah, [facility] Primary Care Provider [phone] PEDRO CHU Referring Unavailabl e KETURAH, [facility] Primary Care Unavailable PEDRO CHU Referring Unavailabl e KETURAH, [facility] Primary Care Unavailable [facility], DR BOB Primary Care Unavailable TRANG DORANTES Admitting Unavailable JOSE E, TRANG Attending Unavailable JOSE E, TRANG Consulting Unavailable HAY, DR VAIL Admitting Unavailable HAY, DR VAIL Attending Unavailable KETURAH, [facility] Primary Care Unavailable SAMMY, DR JORDAN Mary Consulting Unavailable ZIEBER, DR CASSY Cedeno Consulting Unavailable SERGO ENCARNACION Consulting [facility] Unavailable DEE, DR KEVIN Valdes Admitting Unavailabl e REINECK, DR KEVIN Valdes Attending Unavailabl e REINECK, DR KEVIN Valdes Consulting [facility] REINECK, DR KEVIN Valdes Admitting Unavailabl e REINECK, DR KEVIN Valdes Attending Unavailabl e REINWENCESLAO, DR KEVIN Valdes Consulting Unavailabl e BLANCA GRANT Attending Unavailable Allergies Allergy Classification Reported Allergen(s) Allergy Type Date of Onset Reaction(s) Facility (4 sources) albuterol; 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: [albuterol] Drug Allergy 5 Headaches [facility] Repository (4 sources) amoxicillin; 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: [amoxicillin] Drug Allergy 7 Swelling [facility] Repository (3 sources) ibuprofen; 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: [ibuprofen] Drug Allergy 7 Other (See Comments) [facility] (4 sources) loratadine; 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: [loratadine] Drug Allergy 7 Swelling [facility] (1 source) [place]; 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: [Strawberries] Food allergy (disorder) [facility] Repository (2 sources) empagliflozin; 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: [EMPAGLIFLOZIN] Drug Allergy 0 Nausea And Vomiting [facility] [employer] Phone: (1 source) strawberry allergenic extract Drug Allergy 7 Hives [employer] Phone: (2 sources) Amoxicillin-Pot Clavulanate; 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: [AMOXICILLIN-POT CLAVULANATE] Propensity to adverse reactions to drug 7 Swelling [employer] Phone: (1 source) alogliptin Drug Allergy [facility] Repository (1 source) Amoxicillin / Clavulanate Drug Allergy 5 [facility] Rep[facility] (1 source) empagliflozin Drug Allergy [facility] Rep[facility] (1 source) Ibuprofen Drug Allergy [facility] (1 source) Penicillins Drug allergy (disorder) [facility] Rep[facility] (1 source) strawberry allergenic extract Drug Allergy 5 [facility] Rep[facility] (1 source) alogliptin; 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: [ALOGLIPTIN BENZOATE] Drug Allergy 2 [facility] Repository (1 source) POTASSIUM CLAVULANATE; 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: [POTASSIUM CLAVULANATE] Propensity to adverse reactions to drug (disorder) 2 [facility] Repository (1 source) STRAWBERRY FLAVOR; 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: [STRAWBERRY FLAVOR] Propensity to adverse reactions to drug (disorder) 2 [facility] Repository Medications Current Medications Medication Drug Class(es) Dates Sig (Normalized) Sig (Original) acetaminophen 325 mg / HYDROcodone bitartrate 5 mg oral tablet (1 source) Opioid Agonist Start: 07-15-2021 take 1 tablet by mouth every four to six hours for pain HYDROcodone-acetam inophen (NORCO) 5-325 MG per tablet take 1 tablet by mouth every 4 to 6 hours if needed for pain 0 07/15/2021 Active 60 actuat budesonide 0.16 mg/actuat / formoterol fumarate 0.0045 mg/actuat metered dose inhaler (1 source) Corticosteroid, beta2-Adrenergic Agonist Start: 07-20-2021 take 2 puff(s) by mouth twice daily SYMBICORT 160-4.5 MCG/ACT AERO inhale 2 puffs by mouth and INTO THE LUNGS twice a day 0 07/20/2021 Active ergocalciferol 1.25 mg oral capsule (1 source) Provitamin D2 Compound Start: 07-05-2021 take 1 capsule by mouth every week vitamin D (ERGOCALCIFEROL) 1.25 MG (02204 UT) CAPS capsule take 1 capsule by mouth every week 0 07/05/2021 Active 3 ml insulin lispro 100 unt/ml pen injector (1 source) Insulin Analog Start: 07-20-2021 inject 1 [IU] by subcutaneous injection before mealtime HUMALOG KWIKPEN 100 UNIT/ML SOPN inject 8-10-12 UNITS UNDER THE SKIN BEFORE MEALS PLUS INSULIN SLI... (REFER TO PRESCRIPTION NOTES). 0 07/20/2021 Active metFORMIN hydrochloride 500 mg oral tablet (1 source) Biguanide Start: 07-15-2021 take 1 tablet by mouth twice daily at mealtime metFORMIN (GLUCOPHAGE) 500 MG tablet take 1 tablet by mouth twice a day with meals 0 07/15/2021 Active Problems Active Problems Problem Classification Problem Date Documented Da te Episodic/Chronic Calculus of urinary tract (1 source) Personal history of urinary calculi; 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: [PERSONAL HISTORY OF URINARY CALCULI] Onset: 11-02-2021 Episodic Coagulation and hemorrhagic disorders (1 source) Platelet count below reference range; 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: [Thrombocytopenia, unspecified] Chronic Diabetes mellitus without complication (1 source) Type 2 diabetes mellitus without complications; 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: [TYPE 2 DM WITHOUT COMPLICATIONS] Onset: 11-02-2021 Chronic Genitourinary symptoms and ill-defined conditions (3 sources) Dysuria; 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: [DYSURIA] Onset: 10-30-2021 Episodic Headache; including migraine (4 sources) Headache; including migraine; 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: [HEADACHE UNSPECIFIED] Onset: 10-15-2021 Mood disorders (1 source) Major depressive disorder, single episode, unspecified; 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: [MACKENZIE DEPRESS D/O SINGLE EPIS UNS] Onset: 11-02-2021 Chronic Osteoarthritis (1 source) Unilateral primary osteoarthritis, right knee; 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: [UNI PRIM OSTEOARTHRITIS RT KNEE] Onset: 07-16-2021 Chronic Other aftercare (1 source) Other terminal worker (current) drug therapy; 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: [OTH LONGTERM CURRENT DRUG THERAPY] Onset: 11-02-2021 Episodic Other aftercare (1 source) terminal operations manager (current) use of insulin; 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: [LONGTERM CURRENT USE OF INSULIN] Onset: 11-02-2021 Episodic Other aftercare (1 source) terminal operations manager (current) use of oral hypoglycemic drugs; 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: [[facility] [place] [employer] [place] USE ORAL HYPOGLYCEMIC DX] Onset: 11-02-2021 Episodic Other gastrointestinal disorders (1 source) Splenomegaly; 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: [Splenomegaly, not elsewhere classified] Episodic Other injuries and conditions due to external causes (1 source) Personal history of other (healed) physical injury and trauma; 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: [PERS HX OTH HEALED PHYS INJ AND TRAUMA] Onset: 10-16-2021 Episodic Other liver diseases (1 source) Large liver; 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: [Hepatomegaly, not elsewhere classified] Episodic Unclassified (2 sources) Consult; 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: [Consult] Onset: 02-15-2022 Urinary tract infections (1 source) Cystitis, unspecified without hematuria; 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: [CYSTITIS UNS WITHOUT HEMATURIA] Onset: 11-02-2021 Episodic Past or Other Problems Problem Classification Problem Date Documented Da te Episodic/Chronic Other injuries and conditions due to external causes (1 source) History of falling; 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: [HISTORY OF FALLING] Onset: 07-16-2021 Episodic Other nervous system disorders (1 source) Trigeminal neuralgia; 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: [TRIGEMINAL NEURALGIA] Onset: 03-06-2021 Episodic Other non-traumatic joint disorders (4 sources) Pain in right knee; 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: [PAIN IN RIGHT KNEE] Onset: 07-15-2021 Episodic Other non-traumatic joint disorders (1 source) Pain in right ankle and joints of right foot; 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: [PAIN IN RIGHT ANKLE] Onset: 07-16-2021 Episodic Results Test Name Value Interpretation Reference Range [facility] Office Visiton 02-15-2022 Follow-up visit [id number] Madhavi Kay S 1965 F Date Provider Department Center 02/15/2022 Ahmet-RUDY BLANCA [facility] SURG [place] Fl Family History Problem Relation Age of Onset Hypertension Mother Hypertension Father Family Status - Relation Status Age at Mother Father Level of Service:12070 [place] OFFICE/OUTPATIENT NEW LOW MDM 30-44 MINUTES Reason for Visit and Comments: Consult [484] - Nasal fracture 1 yr ago s/p fall. Normal [facility] CULTURE URINEon 11-01-2021 CULTURE URINE Isolate 1 Klebsiella pneumoniae >100,000 cfu/mL of ORGANISM 1 Klebsiella pneumoniae ANTIBIOTIC M.I.C RX STATUS Ampicillin 16 R F Ampicillin/Sulbactam 4 S F Piperacillin/Tazobac parmar <=4 S F Cefazolin <=4 S F Ceftazidime <=1 S F Ceftriaxone <=1 S F Ertapenem <=0.5 S F Imipenem <=0.25 S F Amikacin <=2 S F Gentamicin <=1 S F Tobramycin <=1 S F Ciprofloxacin <=0.25 S F Levofloxacin <=0.12 S F Nitrofurantoin <=16 S F Trimethoprim/Sulfame thoxazole <=20 S F Normal [facility] Comment on above: Performed By: #### U RCX #### [facility] [address] [place] [address] Dr. Robert Buchanan ER URINE PROFILEon 2 Bilirubin Ql (U) Negative Normal NEGATIVE [facility] Comment on above: Performed By: #### ANGEL APONTERO #### [facility] [address] [place] [address] Dr. Robert Buchanan Clarity (U) SL CLOUDY Abnormal CLEAR [facility] Comment on above: Performed By: #### ANGEL APONTERO #### [facility] [address] [place] [address] Dr. Robert Buchanan Color (U) LT. YELLOW Normal YELLOW [facility] Comment on above: Performed By: #### E FRITZ UMICRO #### [facility] [address] [place] [address] Dr. Robert TALBERTD A micrscopic examination will be performed if indicated. Normal [facility] Comment on above: Performed By: #### Tameka HU UMICRO #### [facility] [address] [address] [address] Robert Buchanan Glucose Ql (U) 1000 mg/dl Abnormal NEGATIVE [facility] Comment on above: Performed By: #### Tameka HU UMICRO #### [facility] [address] [address] [address] Robert Buchanan Hemoglobin Ql (U) SMALL Abnormal NEGATIVE [facility] Comment on above: Performed By: #### Tameka HU UMICRO #### [facility] [address] [address] [address] Robert Buchanan Ketones Ql (U) Negative Normal NEGATIVE [facility] Comment on above: Performed By: #### Tameka HU UMICRO #### [facility] [address] [place] [address] Dr. Robert Buchanan LEUKOCYTES SMALL Abnormal NEGATIVE [facility] Comment on above: Performed By: #### Tameka HU UMICRO #### [facility] [address] [place] [address] Dr. Robert Buchanan Nitrite Ql (U) Positive Abnormal NEGATIVE [facility] Comment on above: Performed By: #### Tameka HU UMICRO #### [facility] [address] [place] [address] Dr. Robert Buchanan pH (U) 5.5 [pH] Normal 5-9 [facility] Comment on above: Performed By: #### Tameka HU UMICRO #### [facility] [address] [place] [address] Dr. Robert Buchanan SPEC GRAVITY 1.020 Normal 1.005-<=1.025 [facility] Comment on above: Performed By: #### Tameka HU UMICRO #### [facility] [address] [address] [address] Robert Buchanan UA PROTEIN Negative Normal NEGATIVE/ TRACE [facility] Comment on above: Performed By: #### Tameka HU UMICRO #### [facility] [address] [place] [address] Dr. Robert Buchanan UR MICRO IND INDICATED Normal [facility] Comment on above: Performed By: #### PRINCESS APONTEICRO #### [facility] [address] [place] [address] Dr. Robert Buchanan Urobilinogen Qn (U) 0.2 {Rachael'U}/dL Normal 0.2 - 1. 0 [facility] Comment on above: Performed By: #### Tameka HU UMICRO #### [facility] [address] [place] [address] Dr. Robert Buchanan POINT OF CARE GLUCOSEon Glucose [Mass/Vol] 335 mg/dL Critically high 74-106 [facility] Comment on above: Performed By: #### P OCGLUC #### [facility] [address] [place] [address] Dr. Robert Buchanan URINE MICROSCOPIC ONLYon BACTERIA MODERATE Abnormal NONE SEEN [facility] Comment on above: Performed By: #### Tameka HU UMICRO #### [facility] [address] [place] [address] Dr. Robert Buchanan Bacteria identified Cx Nom (U) INDICATED Normal [facility] Comment on above: Performed By: #### Tameka HU UMICRO #### [facility] [address] [place] [address] Dr. Robert Buchanan CAST NONE SEEN Normal NONE SEEN [facility] Comment on above: Performed By: #### Tameka HU UMICRO #### [facility] [address] [place] [address] Dr. Robert Buchanan Crystals LM Nom (Urine sed) NONE SEEN Normal NONE SEEN [facility] Comment on above: Performed By: #### Tameka HU UMICRO #### [facility] [address] [place] [address] Dr. Robert Buchanan Epithelial cells LM Ql (Urine sed) FEW Abnormal NONE SEEN /RARE [facility] Comment on above: Performed By: #### Tameka HU UMICRO #### [facility] [address] [address] [address] Robert Buchanan MUCOUS NONE SEEN Normal NONE SEEN [facility] Comment on above: Performed By: #### MARTIN APONTE #### [facility] [address] [place] [address] Dr. Robert Buchanan RBC 0-2 Normal 0-2 [facility] Comment on above: Performed By: #### ANGEL APONTERO #### [facility] [address] [place] [address] Dr. Robert Buchanan WBC 5-10 Abnormal NONE SEEN [facility] Comment on above: Performed By: #### MARTIN APONTE #### [facility] [address] [place] [address] Dr. Robert Buchanan EBV, Quant. PCRon 09-18-2021 EBV, Quant. Source .BLOOD Normal [facility] Comment on above: Performed By: #### A CMVDN #### [address] [address] Tax Evaluator: Kevin Sanches MD [address] [phone] Tax Evaluator: Satinder Richardson MD #### AATRPHGRAYF #### [address] [phone] Tax Evaluator: Satinder Richardson MD #### TRFE, ANARICHARDN, FERI, PHEP, CER, LIVP, AMAB #### [address] [address] Tax Evaluator: Cisco Andrade MD #### PT #### [address] [address] Tax Evaluator: Kevin Sanches MD #### AEBVQ #### [address] [phone] Tax Evaluator: Cisco Andrade MD [address] [phone] Tax Evaluator: Satinder Richardson MD A1 Antitrypsin Phenoon 09-13 A1 Antitryp Phenotype M1M2 Normal [facility] Comment on above: Result Comment: (NOT E) The patient appears to have a normal phenotype. All M alleles (including subtypes M1, M2, and M3) produce normal serum concentrations of [id number] inhibitor and are not associated with clinical disease. Caution in interpretation is advised if the patient has been transfused within the previous 21 days. Performed By: [address] [address] Dev Ops Engineer: Reza Guajardo MD, PhD Performed By: #### A CMVDN #### [address] [address] Tax Evaluator: Kevin Sancehs MD [address] [address] Tax Evaluator: Satinder Richardson MD #### AATRPH, AASMF #### [address] [address] Tax Evaluator: Satinder Richardson MD #### TRFE, ANASCN, FERI, PHEP, CER, LIVP, AMAB #### [address] [address] Tax Evaluator: Cisco Andrade MD #### PT #### [address] [phone] Tax Evaluator: Kevin Sanches MD #### AEBVQ #### [address] [phone] Tax Evaluator: Cisco Andrade MD [address] [address] Tax Evaluator: Satinder Richardson MD A1 Antitrypsin 150 mg/dL Normal 90-200 [facility] Comment on above: Result Comment: To c onvert to umol/L, multiply mg/dL by 0.185 Performed By: #### A CMVDN #### [address] [address] Tax Evaluator: Kevin Sanches MD [address] [phone] Tax Evaluator: Satinder Richardson MD #### AATRPH, AASMF #### [facility] [address] [place] [address] [phone] Tax Evaluator: Satinder Richardson MD #### TRFE, ANASCN, FERI, PHEP, CER, LIVP, AMAB #### [address] [phone] Tax Evaluator: Cisco Andrade MD #### PT #### [place] [address] Tax Evaluator: Kevin Sanches MD #### AEBVQ #### [address] [phone] Tax Evaluator: Cisco Andrade MD [address] [phone] Tax Evaluator: Satinder Richardson MD Anti-Mitochondrial Abon 07- Anti-Mitochondrial Ab 1.1 U/mL Normal 0.0-4.0 [facility] Comment on above: Result Comment: Reference Range: <4.0 Negative 4.0-6.0 Equivocal >6.0 Positive When results are Equivocal, it is recommended to retest after 8-12 weeks. Performed By: #### A CMVDN #### [address] [phone] Tax Evaluator: Kevin Sanches MD [address] [phone] Tax Evaluator: Satinder Richardson MD #### TOMAS AASMF #### [address] [phone] Tax Evaluator: Satinder Richardson MD #### ELLYN, ANNEMARIE NAVARRETE, PHEP, CER, LIVP, AMAB #### [address] [phone] Tax Evaluator: Cisco Andrade MD #### PT #### [address] [phone] Tax Evaluator: Kevin Sanches MD #### AEBVQ #### [address] [phone] Tax Evaluator: Cisco Andrade MD [address] [phone] Tax Evaluator: Satinder Richardson MD CMV Quant by PCRon 2 CMV by PCR Interp Not detected Normal Not Detected [facility] Comment on above: Result Comment: (NOT E) NOT DETECTED - A negative result does not rule out the presence of PCR inhibitors in the patient specimen or assay specific nucleic acid in concentrations below the level of detection by the assay. Performed by [facility] [phone] www[employer], Reza Guajardo MD, PHD, Lab. Director Performed By: #### A CMVDN #### [address] [phone] Tax Evaluator: Kevin Sanches MD [address] [phone] Tax Evaluator: Satinder Richardson MD #### TOMAS AASMF #### [address] [phone] Tax Evaluator: Stainder Richardson MD #### TRFE, ANASCN, FERI, PHEP, CER, LIVP, AMAB #### [address] [phone] Tax Evaluator: Cisco Andrade MD #### PT #### [address] [phone] Tax Evaluator: Kevin Sanches MD #### AEBVQ #### [address] [phone] Tax Evaluator: Cisco Andrade MD [address] [phone] Tax Evaluator: Satinder Richardson MD CMV Quant <2.6 Normal [facility] Comment on above: Result Comment: (NOT E) INTERPRETIVE INFORMATION: Cytomegalovirus, Quantitative PCR The quantitative range of this assay is 2.6- 6.6 log copies/mL (390-3,900,000 copies/mL) or 2.4- 6.4 log IU/mL (227- 2,270,000 IU/mL). 1 IU/mL of CMV DNA is approximately 1.72 copies/mL. A negative result (less than 2.6 log copies/mL or less than 390 copies/mL; less than 2.4 log IU/mL or less than 227 IU/mL) does not rule out the presence of PCR inhibitors in the patient specimen or CMV DNA concentrations below the level of detection of the assay. Inhibition may also lead to underestimation of viral quantitation. This test was developed and its performance characteristics determined by [employer]. It has not been cleared or approved by the [place] Food and Drug Administration. This test was performed in a CLIA certified laboratory and is intended for clinical purposes. Performed By: #### A CMVDN #### [address] [phone] Tax Evaluator: Kevin Sanches MD [address] [phone] Tax Evaluator: Satinder Richardson MD #### AATRPH AASMF #### [address] [address] Tax Evaluator: Satinder Richardson MD #### ROSALBA RAGLAND FERI, PHEP, CER, LIVP, AMAB #### [address] [address] Tax Evaluator: Cisco Andrade MD #### PT #### [address] [phone] Tax Evaluator: Kevin Sanches MD #### AEBVQ #### [address] [phone] Tax Evaluator: Cisco Andrade MD [facility] [address] [place] [address] Tax Evaluator: Satinder Richardson MD CMV Quant Copy/mL <390 Normal [facility] Comment on above: Performed By: #### A CMVDN #### [address] [phone] Tax Evaluator: Kevin Sancehs MD [facility] [address] [place], [place] [phone] Tax Evaluator: Satinder Richardson MD #### AATUVALDOH AASMF #### [facility] [address] [place] [address] Tax Evaluator: Satinder Richardson MD #### ROSALBA RAGLAND FERI, PHEP, CER, LIVP, AMAB #### [address] [phone] Tax Evaluator: Cisco Andrade MD #### PT #### [address] [phone] Tax Evaluator: Kevin Sanches MD #### AEBVQ #### [address] [phone] Tax Evaluator: Cisco Andrade MD [facility] [address] [place] [address] Tax Evaluator: Satinder Richardson MD CMV Quant IU/mL <227 Normal [facility] Comment on above: Performed By: #### A CMVDN #### [address] [phone] Tax Evaluator: Kevin Sanches MD [facility] [address] [place] [address] [phone] Tax Evaluator: Satinder Richardson MD #### NELA MARIN #### [facility] [address] [place] [address] [phone] Tax Evaluator: Satinder Richardson MD #### TRFE, ANASCN, FERI, PHEP, CER, LIVP, AMAB #### [address] [phone] Tax Evaluator: Cisco Andrade MD #### PT #### [address] [phone] Tax Evaluator: Kevin Sanches MD #### AEBVQ #### [address] [address] Tax Evaluator: Cisco Andrade MD [facility] [address] [place] [address] [phone] Tax Evaluator: Satinder Richardson MD CMV Quant Log IU/mL <2.4 Normal [facility] Comment on above: Performed By: #### A CMVDN #### [address] [phone] Tax Evaluator: Kevin Sanches MD [facility] [address] [place] [address] [phone] Tax Evaluator: Satinder Richardson MD #### AATCLIFFORD AASMF #### [facility] [place] [address] Tax Evaluator: Satinder Richardson MD #### ELLYN, ROSALBA, FERI, PHEP, CER, LIVP, AMAB #### [address] [phone] Tax Evaluator: Cisco Andrade MD #### PT #### [address] [address] Tax Evaluator: Kevin Sanches MD #### AEBVQ #### [address] [address] Tax Evaluator: Cisco Andrade MD [address] [phone] Tax Evaluator: Satinder Richardson MD EBV, Quant. PCRon 09-11-2021 EBV, Quant. Copy/mL <390 Normal [facility] Comment on above: Performed By: #### A CMVDN #### [address] [address] Tax Evaluator: Kevin Sanches MD [address] [phone] Tax Evaluator: Satinder Richardson MD #### TOMAS AASMF #### [facility] [address] [place] [phone] Tax Evaluator: Satinder Richardson MD #### ELLYN, ROSALBA, FERI, PHEP, CER, LIVP, AMAB #### [address] [address] Tax Evaluator: Cisco Andrade MD #### PT #### [address] [address] Tax Evaluator: Kevin Sanches MD #### AEBVQ #### [address] [address] Tax Evaluator: Cisco Andrade MD [address] [phone] Tax Evaluator: Satinder Richardson MD EBV, Quant. Interp Not detected Normal Not Detected [facility] Comment on above: Result Comment: (NOT E) NOT DETECTED - A negative result does not rule out the presence of PCR inhibitors in the patient specimen or assay specific nucleic acid in concentrations below the level of detection by the assay. Performed by [facility] [address] www[employer], Reza Guajardo MD, PHD, Lab. Director Performed By: #### A CMVDN #### [place] [phone] Tax Evaluator: [place] [address] Tax Evaluator: Satinder Richardson MD #### AATRPH, AASMF #### [place] [address] Tax Evaluator: Satinder Richardson MD #### TRFE, ANASCN, FERI, PHEP, CER, LIVP, AMAB #### [place] [address] Tax Evaluator: Cisco Andrade MD #### PT #### [address] [address] Tax Evaluator: Kevin Sanches MD #### AEBVQ #### [address] [phone] Tax Evaluator: Cisco Andrade MD [address] [phone] Tax Evaluator: Satinder Richardson MD EBV, Quant. Log <2.6 Normal [facility] Comment on above: Result Comment: (NOT E) INTERPRETIVE INFORMATION: Bree Doherty Virus by Quantitative PCR The quantitative range of this assay is 2.6-7.6 log copies/mL (390-39,000,000 copies/mL). A negative result (less than 2.6 log copies/mL or less than 390 copies/mL) does not rule out the presence of PCR inhibitors in the patient specimen or EBV DNA nucleic acid in concentrations below the level of detection of the assay. Inhibition may also lead to underestimation of viral quantitation. Caution should be taken when interpreting results generated by different assay methodologies. This test was developed and its performance characteristics determined by [facility]. It has not been cleared or approved by the [place] Food and Drug Administration. This test was performed in a CLIA certified laboratory and is intended for clinical purposes. Performed By: #### A CMVDN #### [place] [address] Tax Evaluator: Kevin Sanches MD [address] [phone] Tax Evaluator: Satinder Richardson MD #### AATRPH, AASMF #### [place] [phone] Tax Evaluator: Satinder Richardson MD #### TRFE, ANASCN, FERI, PHEP, CER, LIVP, AMAB #### [place] [phone] Tax Evaluator: Cisco Andrade MD #### PT #### [place] [address] Tax Evaluator: Kevin Sanches MD #### AEBVQ #### [address] [phone] Tax Evaluator: Cisco Andrade MD [address] [phone] Tax Evaluator: MD ASHLEY Ruiz 09-10-2021 ASHLEY Screen Negative Normal NEG [facility] Comment on above: Performed By: #### A CMVDN #### [address] [phone] Tax Evaluator: Kevin Sanches MD [facility] [address] [place] [address] [phone] Tax Evaluator: Satinder Richardson MD #### NELA MARIN #### [facility] [address] [place] [phone] Tax Evaluator: Satinder Richardson MD #### TRFE, ANASCN, FERI, PHEP, CER, LIVP, AMAB #### [address] [phone] Tax Evaluator: Cisco Andrade MD #### PT #### [place] [address] Tax Evaluator: Kevin Sanches MD #### AEBVQ #### [address] [phone] Tax Evaluator: Cisco Adnrade MD [address] [phone] Tax Evaluator: Satinder Richardson MD Anti-dsDNA 0.9 IU/mL Normal <10.0 [facility] Comment on above: Result Comment: Reference Range: <10.0 Negative 10.0-15.0 Equivocal >15.0 Positive Performed By: #### A CMVDN #### [address] [phone] Tax Evaluator: Kevin Sanches MD [address] [phone] Tax Evaluator: Satinder Richardson MD #### NELA MARIN #### [facility] [address] [place] [address] [phone] Tax Evaluator: Satinder Richardson MD #### TRSHEEBA, ROSALBA, FERI, PHEP, CER, LIVP, AMAB #### [address] [phone] Tax Evaluator: Cisco Andrade MD #### PT #### [address] [phone] Tax Evaluator: Kevin Sanches MD #### AEBVQ #### [address] [phone] Tax Evaluator: Cisco Andrade MD [address] [phone] Tax Evaluator: Satinder Richardson MD JOYCE Screen 0.4 U/mL Normal <0.7 [facility] Comment on above: Result Comment: Reference Range: <0.7 Negative 0.7-1.0 Equivocal >1.0 Positive JOYCE Screen includes U1RNP,RNP70,Sm,Ro(SS-A),La(SS-B),CENP,Scl-70,Valeria-1 Performed By: #### A CMVDN #### [address] [phone] Tax Evaluator: Kevin Sanches MD [address] [phone] Tax Evaluator: Satinder Richardson MD #### AATUVALDOH AASMF #### [facility] [address] [place] [address] [phone] Tax Evaluator: Satinder Richardson MD #### ELLYN, ROSALBA, OSBALDOI, PHEP, CER, LIVP, AMAB #### [address] [phone] Tax Evaluator: Cisco Andrade MD #### PT #### [address] [place] [address] Tax Evaluator: Kevin Sanches MD #### AEBVQ #### [place] [id number] [place], [place] [phone] Tax Evaluator: Cisco Andrade MD [address] [phone] Tax Evaluator: Satinder Richardson MD Smooth Muscle Abon 2 Smooth Muscle Ab 11 Units Normal 0-19 [facility] Comment on above: Result Comment: (NOT E) If F-Actin (Smooth Muscle) Antibody, IgG is negative, the Smooth Muscle Antibody titer by IFA is not performed. REFERENCE INTERVAL: F-Actin (Smooth Muscle) Antibody, IgG by CHAPARRITA 19 Units or less ....... Negative 20 - 30 Units .......... Weak Positive-Suggest repeat testing in two to three weeks with fresh specimen. 31 Units or greater..... Positive-Suggestive of autoimmune hepatitis type 1 or chronic active hepatitis. F-actin IgG antibodies have been shown to have increased sensitivity for autoimmune hepatitis (AIH) but lower specificity than smooth muscle antibodies (SMA). F-actin IgG antibodies can also be seen in SMA-negative disease controls (non-AIH), especially in patients with primary biliary cirrhosis and chronic hepatitis C infections. Some patients with AIH may be SMA-positive but negative for F-actin IgG. Consider testing for SMA by IFA if suspicion for AIH is strong. Performed By: [facility] [address] [place] [phone] Dev Ops Engineer: Reza Guajardo MD, PhD Performed By: #### A CMVDN #### [address] [address] Tax Evaluator: Kevin Sanches MD [facility] [address] [place] [phone] Tax Evaluator: Satinder Richardson MD #### AATRPH AASMF #### [facility] [address] [place] [address] [phone] Tax Evaluator: Satinder Richardson MD #### TRSHEEBA, SGN, FERI, PHEP, CER, LIVP, AMAB #### [address] [phone] Tax Evaluator: Cisco Andrade MD #### PT #### [address] [phone] Tax Evaluator: Kevin Sanches MD #### AEBVQ #### [address] [phone] Tax Evaluator: Cisco Andrade MD [facility] [address] [place] [address] Tax Evaluator: Satinder Richardson MD Ceruloplasminon 09-08-2021 Ceruloplasmin 24 mg/dL Normal 16-45 [facility] Comment on above: Performed By: #### A CMVDN #### [address] [phone] Tax Evaluator: Kevin Sanches MD [facility] [address] [place] [address] Tax Evaluator: Satinder Richardson MD #### AATRPH AASMF #### [facility] [address] [place], [place] [phone] Tax Evaluator: Satinder Richardson MD #### TRFE, SGN, FERI, PHEP, CER, LIVP, AMAB #### [address] [phone] Tax Evaluator: Cisco Andrade MD #### PT #### [address] [phone] Tax Evaluator: Kevin Sanches MD #### AEBVQ #### [address] [phone] Tax Evaluator: Cisco Andrade MD [facility] [address] [place] [address] [phone] Tax Evaluator: Satinder Richardson MD Ferritinon 09-08-2021 Ferritin [Mass/Vol] 86 ng/mL Normal 13-150 [facility] Comment on above: Performed By: #### A CMVDN #### [address] [phone] Tax Evaluator: Kevin Sanches MD [facility] [address] [place] [address] [phone] Tax Evaluator: Satinder Richardson MD #### AATRPH, AASMF #### [facility] [address] [place] [address] [phone] Tax Evaluator: Satinder Richardson MD #### TRFE, ANASCN, FERI, PHEP, CER, LIVP, AMAB #### [address] [phone] Tax Evaluator: Cisco Andrade MD #### PT #### [address] [phone] Tax Evaluator: Kevin Sanches MD #### AEBVQ #### [address] [phone] Tax Evaluator: Cisco Andrade MD [address] [phone] Tax Evaluator: Satinder Richardson MD Liver Profileon 09-08-2021 Albumin [Mass/Vol] 4.3 g/dL Normal 3.5-5.2 [facility] Comment on above: Performed By: #### A CMVDN #### [address] [phone] Tax Evaluator: Kevin Sanches MD [facility] [address] [place] [phone] Tax Evaluator: Satinder Richardson MD #### GRAY MARINF #### [facility] [address] [place] [address] Tax Evaluator: Satinder Richardson MD #### TRFE, ANASCN, FERI, PHEP, CER, LIVP, AMAB #### [address] [phone] Tax Evaluator: Cisco Andrade MD #### PT #### [address] [phone] Tax Evaluator: Kevin Sanches MD #### AEBVQ #### [address] [phone] Tax Evaluator: Cisco Andrade MD [address] [phone] Tax Evaluator: Satinder Richardson MD Albumin/Glob Ratio 1.7 Normal 1.0-2.5 [facility] Comment on above: Performed By: #### A CMVDN #### [address] [phone] Tax Evaluator: Kevin Sanches MD [facility] [address] [place], [place] [phone] Tax Evaluator: Satinder Richardson MD #### NELA MARIN #### [facility] [address] [place], [place] [phone] Tax Evaluator: Satinder Richardson MD #### ELLYN, ROSALBA, FERI, PHEP, CER, LIVP, AMAB #### [address] [phone] Tax Evaluator: Cisco Andrade MD #### PT #### [address] [phone] Tax Evaluator: Kevin Sanches MD #### AEBVQ #### [address] [phone] Tax Evaluator: Cisco Andrade MD [facility] [address] [place] [address] [phone] Tax Evaluator: Satinder Richardson MD Alkaline Phos 69 U/L Normal 35-104 [facility] Comment on above: Performed By: #### A CMVDN #### [address] [address] Tax Evaluator: Kevin Sanches MD [address] [phone] Tax Evaluator: Satinder Richardson MD #### AATRPH, AASMF #### [facility] [address] [place] [address] [phone] Tax Evaluator: Satinder Richardson MD #### TRFE, ANASCN, FERI, PHEP, CER, LIVP, AMAB #### [address] [phone] Tax Evaluator: Cisco Andrade MD #### PT #### [address] [address] Tax Evaluator: Kevin Sanches MD #### AEBVQ #### [address] [phone] Tax Evaluator: Cisco Andrade MD [address] [phone] Tax Evaluator: Satinder Richardson MD ALT [Catalytic activity/Vol] 33 U/L Normal 5-33 [facility] Comment on above: Performed By: #### A CMVDN #### [address] [phone] Tax Evaluator: Kevin Sanches MD [facility] [address] [place] [address] Tax Evaluator: Satinder Richardson MD #### NELA MARIN #### [facility] [address] [place] [address] Tax Evaluator: Satinder Richardson MD #### TRFE, ASHLEYSCN, FERI, PHEP, CER, LIVP, AMAB #### [address] [phone] Tax Evaluator: Cisco Andrade MD #### PT #### [address] [phone] Tax Evaluator: Kevin Sanches MD #### AEBVQ #### [address] [phone] Tax Evaluator: Cisco Andrade MD [facility] [address] [place] [address] Tax Evaluator: Satinder Richardson MD AST [Catalytic activity/Vol] 51 U/L High <32 [facility] Comment on above: Performed By: #### A CMVDN #### [address] [phone] Tax Evaluator: Kevin Sanches MD [facility] [address] [place], [place] [phone] Tax Evaluator: Satinder Richardson MD #### NELA MARIN #### [facility] [address] [place] [address] Tax Evaluator: Satinder Richardson MD #### ELLYN, ROSALBA, FERI, PHEP, CER, LIVP, AMAB #### [address] [phone] Tax Evaluator: Cisco Andrade MD #### PT #### [address] [place], [place] [phone] Tax Evaluator: Kevin Sanches MD #### AEBVQ #### [address] [phone] Tax Evaluator: Cisco Andrade MD [address] [phone] Tax Evaluator: Satinder Richardson MD Bilirubin [Mass/Vol] 0.69 mg/dL Normal 0.3-1.2 [facility] Comment on above: Performed By: #### A CMVDN #### [place] [address] Tax Evaluator: Kevin Sanches MD [address] [phone] Tax Evaluator: Satinder Richardson MD #### AATRPH, AASMF #### [facility] [address] [place] [address] [phone] Tax Evaluator: Satinder Richardson MD #### TRFE, ANASCN, FERI, PHEP, CER, LIVP, AMAB #### [address] [phone] Tax Evaluator: Cisco Andrade MD #### PT #### [place] [address] Tax Evaluator: Kevin Sanches MD #### AEBVQ #### [address] [phone] Tax Evaluator: Cisco Andrade MD [address] [phone] Tax Evaluator: Satinder Richardson MD Bilirubin, Indirect 0.52 mg/dL Normal 0.00-1.00 [facility] Comment on above: Performed By: #### A CMVDN #### [address] [phone] Tax Evaluator: Kevin Sanches MD [facility] [address] [place] [address] [phone] Tax Evaluator: Satinder Richardson MD #### GRAY MARINF #### [facility] [address] [place] [address] [phone] Tax Evaluator: Satinder Richardson MD #### TRFE, ANASCN, FERI, PHEP, CER, LIVP, AMAB #### [address] [phone] Tax Evaluator: Cisco Andrade MD #### PT #### [address] [address] Tax Evaluator: Kevin Sanches MD #### AEBVQ #### [address] [phone] Tax Evaluator: Cisco Andrade MD [address] [phone] Tax Evaluator: Satinder Richardson MD Bilirubin.indirect [Mass/Vol] 0.17 mg/dL Normal <0.31 [facility] Comment on above: Performed By: #### A CMVDN #### [address] [address] Tax Evaluator: Kevin Sanches MD [facility] [address] [place] [address] [phone] Tax Evaluator: Satinder Richardson MD #### GRAY MARINF #### [facility] [address] [place] [address] [phone] Tax Evaluator: Satinder Richardson MD #### TRFE, ANASCN, FERI, PHEP, CER, LIVP, AMAB #### [address] [phone] Tax Evaluator: Cisco Andrade MD #### PT #### [place] [address] Tax Evaluator: Kevin Sanches MD #### AEBVQ #### [place] [phone] Tax Evaluator: Cisco Andrade MD [address] [phone] Tax Evaluator: Satinder Richardson MD Protein [Mass/Vol] 6.9 g/dL Normal 6.4-8.3 [facility] Comment on above: Performed By: #### A CMVDN #### [place] [address] Tax Evaluator: Kevin Sanches MD [address] [phone] Tax Evaluator: Satinder Richardson MD #### AATRPH, AASMF #### [address] [phone] Tax Evaluator: Satinder Richardson MD #### TRFE, ANASCN, FERI, PHEP, CER, LIVP, AMAB #### [place] [address] Tax Evaluator: Cisco Andrade MD #### PT #### [place] [phone] Tax Evaluator: Kevin Sanches MD #### AEBVQ #### [place] [phone] Tax Evaluator: Cisco Andrade MD [address] [address] Tax Evaluator: Satinder Richardson MD Transferrinon 09-08-2021 Transferrin [Mass/Vol] 248 mg/dL Normal 200-360 [facility] Comment on above: Performed By: #### A CMVDN #### [address] [phone] Tax Evaluator: Kevin Sanches MD [address] [phone] Tax Evaluator: Satinder Richardson MD #### AATRPH, AASMF #### [facility] [address] [place] [address] [phone] Tax Evaluator: Satinder Richardson MD #### TRFE, ANASCN, FERI, PHEP, CER, LIVP, AMAB #### [address] [phone] Tax Evaluator: Cisco Andrade MD #### PT #### [place] [address] Tax Evaluator: Kevin Sanches MD #### AEBVQ #### [address] [phone] Tax Evaluator: Cisco Andrade MD [address] [phone] Tax Evaluator: Satinder Richardson MD LIVERon 09-08-2021 US LIVER EXAMINATION: RIGHT UPPER QUADRANT ULTRASOUND 09/07/2021 10:07 am COMPARISON: None. HISTORY: ORDERING SYSTEM PROVIDED HISTORY: Hepatomegaly TECHNOLOGIST PROVIDED HISTORY: FINDINGS: LIVER: There is diffuse increased hepatic parenchymal echogenicity associated with surface contour nodularity of the liver. In addition, there is mild hepatomegaly with the right hepatic lobe measuring up to 20 cm in length. Overall findings suggesting underlying cirrhosis. No contour deforming liver lesion. No intrahepatic biliary ductal dilatation. The portal vein is patent. BILIARY SYSTEM: The gallbladder is surgically absent. There is mild dilatation of the common bile duct measuring to 7.5 mm. RIGHT KIDNEY: The right kidney is grossly unremarkable without evidence of hydronephrosis. PANCREAS: Visualized portions of the pancreas are unremarkable. OTHER: No evidence of right upper quadrant ascites. IMPRESSION: There are findings to suggest underlying cirrhosis. Mild biliary ductal dilatation without intrahepatic biliary ductal dilatation is probably related to prior cholecystectomy. If there are clinical findings to indicate biliary obstruction, ERCP/MRCP could be obtained for further evaluation. Interpreted by: Eli Pantoja MD Signed by: Eli Pantoja MD 09/08/21 Final result Normal [facility] CMV Quant by PCRon 2 CMV Source .BLOOD Normal [facility] Comment on above: Performed By: #### A CMVDN #### [place] [address] Tax Evaluator: Kevin Sanches MD [address] [phone] Tax Evaluator: Satinder Richardson MD #### AATRPH, AASMF #### [facility] [address] [place] [address] [phone] Tax Evaluator: Satinder Richardson MD #### TRFE, ANASCN, FERI, PHEP, CER, LIVP, AMAB #### [address] [phone] Tax Evaluator: Cisco Andrade MD #### PT #### [place] [address] Tax Evaluator: Kevin Sanches MD #### AEBVQ #### [address] [phone] Tax Evaluator: Cisco Andrade MD [address] [phone] Tax Evaluator: Satinder Richardson MD Hepatitis Acute [facility] 09-07 Hep A Ab,IgM Non-Reactive Normal NR [facility] Comment on above: Performed By: #### A CMVDN #### [address] [phone] Tax Evaluator: Kevin Sanches MD [facility] [address] [place] [address] [phone] Tax Evaluator: Satinder Richardsno MD #### RADHA MARINMF #### [facility] [address] [place] [address] [phone] Tax Evaluator: Satinder Richardson MD #### TRFE, ANASCN, FERI, PHEP, CER, LIVP, AMAB #### [address] [phone] Tax Evaluator: Cisco Andrade MD #### PT #### [address] [phone] Tax Evaluator: Kevin Sanches MD #### AEBVQ #### [address] [address] Tax Evaluator: Cisco Andrade MD [address] [phone] Tax Evaluator: Satinder Richardson MD Hep B Core Ab,IgM Non-Reactive Normal NR [facility] Comment on above: Performed By: #### A CMVDN #### [address] [phone] Tax Evaluator: Kevin Sanches MD [facility] [address] [place] [address] [phone] Tax Evaluator: Satinder Richardson MD #### GRAY MARINF #### [facility] [address] [place] [address] [phone] Tax Evaluator: Satinder Richardson MD #### TRFE, ANASCN, FERI, PHEP, CER, LIVP, AMAB #### [address] [phone] Tax Evaluator: Cisco Andrade MD #### PT #### [address] [phone] Tax Evaluator: Kevin Sanches MD #### AEBVQ #### [address] [phone] Tax Evaluator: Cisco Andrade MD [address] [phone] Tax Evaluator: Satinder Richardson MD Hep B Surf Ag Non-Reactive Normal NR [facility] Comment on above: Performed By: #### A CMVDN #### [address] [phone] Tax Evaluator: Kevin Sanches MD [address] [phone] Tax Evaluator: Satinder Richardson MD #### AATRPH, AASMF #### [address] [phone] Tax Evaluator: Satinder Richardson MD #### TRFE, ANASCN, FERI, PHEP, CER, LIVP, AMAB #### [address] [phone] Tax Evaluator: Cisco Andrade MD #### PT #### [address] [phone] Tax Evaluator: Kevin Sanches MD #### AEBVQ #### [address] [phone] Tax Evaluator: Cisco Andrade MD [address] [address] Tax Evaluator: Satinder Richardson MD Hep C Ab Non-Reactive Normal NR [facility] Comment on above: Result Comment: The hepatitis C procedure used in our laboratory is a Chemiluminescent test specific for three recombinant HCV antigens. A negative anti-HCV result indicates that the antibodies to hepatitis C virus are not present at this time. Individuals with reactive anti-HCV should be considered infected and infectious until proven otherwise. Confirmation of all equivocal or reactive results is recommended by ordering HCV RNA by PCR. Performed By: #### A CMVDN #### [place] [phone] Tax Evaluator: Kevin Sanches MD [address] [phone] Tax Evaluator: Satinder Richardson MD #### AATRPH, AASMF #### [address] [phone] Tax Evaluator: Satinder Richardson MD #### TRFE, ANASCN, FERI, PHEP, CER, LIVP, AMAB #### [address] [phone] Tax Evaluator: Cisco Andrade MD #### PT #### [place] [address] Tax Evaluator: Kevin Sanches MD #### AEBVQ #### [address] [phone] Tax Evaluator: Cisco Andrade MD [address] [phone] Tax Evaluator: Satinder Richardson MD Hepatitis Panel, Acuteon HAV IgM IA Qn (S) Non-Reactive [facility] Hep B Core Ab, IgM Non-Reactive [facility] Hepatitis B Surface Ag Non-Reactive [facility] Hepatitis C Ab Non-Reactive [facility] Comment on above: The hepatitis C procedure used in our laboratory is a Chemiluminescent test specific for three recombinant HCV antigens. A negative anti-HCV result indicates that the antibodies to hepatitis C virus are not present at this time. Individuals with reactive anti-HCV should be considered infected and infectious until proven otherwise. Confirmation of all equivocal or reactive results is recommended by ordering HCV RNA by PCR. MARYSE MILIND [facility] PTon 09-07-2021 INR Coag (PPP) [Relative time] 1.1 {INR} Normal [facility] Comment on above: Result Comment: Therapeutic Range: Moderate Anticoagulant Intensity: INR = 2.0-3.0 High Anticoagulant Intensity: INR = 2.5-3.5 Performed By: #### A CMVDN #### [place] [address] Tax Evaluator: Kevin Sanches MD [address] [phone] Tax Evaluator: Satinder Richardsno MD #### AATRPH, AASMF #### [address] [phone] Tax Evaluator: Satinder Richardson MD #### TRFE, ANASCN, FERI, PHEP, CER, LIVP, AMAB #### [address] [phone] Tax Evaluator: Cisco Andrade MD #### PT #### [place] [address] Tax Evaluator: Kevin Sanches MD #### AEBVQ #### [place] [phone] Tax Evaluator: Cisco Andrade MD [address] [phone] Tax Evaluator: Satinder Richardson MD PT Coag (PPP) [Time] 10.9 s Normal 9.4-12.6 [facility] Comment on above: Performed By: #### A CMVDN #### [place] [phone] Tax Evaluator: Kevin Sanches MD [facility] [address] [place] [address] Tax Evaluator: Satinder Richardson MD #### AATRPH, AASMF #### [facility] [address] [place] [address] Tax Evaluator: Satinder Richardson MD #### TRFE, ANASCN, FERI, PHEP, CER, LIVP, AMAB #### [address] [phone] Tax Evaluator: Cisco Andrade MD #### PT #### [address] [address] Tax Evaluator: Kevin Sanches MD #### AEBVQ #### [address] [phone] Tax Evaluator: Cisco Andrade MD [address] [phone] Tax Evaluator: Satinder Richardson MD [facility]INRon 09-07-2021 INR Coag (Bld) [Relative time] 1.1 {INR} [facility] Comment on above: Therapeutic Range: Moderate Anticoagulant Intensity: INR = 2.0-3.0 High Anticoagulant Intensity: INR = 2.5-3.5 PT Coag (PPP) [Time] 10.9 s [facility] CT KNEE RT WO CONon 07-16-19 CT KNEE RT WO CON EXAMINATION: CT KNEE RT WO CON HISTORY: Pain COMPARISON: Plain x-ray same day TECHNIQUE: Multi-planar CT images were created without IV contrast. Dose reduction techniques were achieved by using automated exposure control and/or adjustment of mA and/or kV according to patient size and/or use of iterative reconstruction technique. FINDINGS: BONES: Moderate tricompartmental osteoarthropathy with joint space narrowing marginal osteophyte formation and mixed subchondral lytic and sclerotic changes. There is a contour deformity identified along the anterior aspect of the medial femoral condyle corresponding to the plain film findings which could represent an impaction fracture/injury. No dislocations. SOFT TISSUES: Negative. No visible soft tissue swelling. EFFUSION: Small amount of joint fluid felt to be within normal limits OTHER: Negative. IMPRESSION: Moderate tricompartmental osteoarthritis Contour deformity anterior aspect of the medial femoral condyle, the differential diagnosis would include degenerative change versus an acute impaction fracture. If an acute impaction fracture is clinically suspected MRI could be performed for further evaluation Electronically authenticated by: JORDAN CHRISTIANSON Date: 2021-07-15 15:21 Normal [facility] XR wrist RT 2Von 06-21-2018 XR wrist RT 2V [facility] [place] [address] XRay Report Signed Patient: Madhavi Kay MR#: [id number] 02 : 1965 Acct:[id number] Age/Sex: 52 / F ADM Date: 06/21/18 Loc: [facility] Room: Type: [facility] Attending Dr: Kenyatta Crockett MD Ordering Provider: Kenyatta Crockett MD Date of Service: 06/21/18 XR/XR wrist RT 2V: Right wrist pain Copies to: Kenyatta Crockett MD XR wrist RT 2V 06/21/2018 11:04 AM SIGNS AND SYMPTOMS: Status post right wrist injury with pain in the right wrist and forearm PROTOCOL: Frontal and lateral radiographs of the right wrist COMPARISON: None FINDINGS: Mild degenerative changes are noted at the base of the thumb. The radiocarpal joint and carpal rows are preserved. There is no fracture. There is no dislocation or subluxation. No soft tissue swelling. XR/XR wrist RT 2V IMPRESSION: Mild degenerative changes at the base of the thumb. No acute abnormalities otherwise. Impression dictated by: Ankur Mckenna M.D.06/21/2018 1:59 PM Dictation Location: [place] [address] Transcribed By: [facility] 06/21/18 3609 Dictated By: Ankur Mckenna II, MD 06/21/18 1353 Signed By: 06/21/18 1351 Normal [facility] CT abdomen pelvis w conon CT abdomen pelvis w [facility] Main [address] [address] [address] Scan Report Signed with Addenda Patient: Madhavi Kay MR#: [id number] 02 : 1965 Acct:[id number] Age/Sex: 52 / F ADM Date: 03/03/18 Loc: CT Room: Type: [facility] Attending Dr: Jordan Butler DO Ordering Provider: Jordan Butler Jr, DO Date of Service: 03/03/18 CT/CT abdomen pelvis w con: Nausea vomiting;GERD (gastroesophageal reflux disease);Gas Copies to: Jordan Butler Jr, DO ADDENDUM 1 Correction: The contrast dosage is 95 cc of Isovue-300. Impression dictated by: Alberto Saini M.D.06/21/2018 2:23 PM Dictation Location: [facility] Addendum Dictated By: Alberto Saini DO Addendum Signed By: 06/21/181422 Addendum Cosigned By: DD/ TD/TT: 06/21/18 CT abdomen and pelvis with contrast TECHNIQUE: Axial imaging with 2-D reconstruction. 20 cc of Isovue-[address] exam was performed using one or more the following dose reduction techniques: Automated exposure control, adjustment of the MA and/or Kv according to patient size, or use of the iterative reconstruction technique. HISTORY: 80 pound weight loss in three months. Nausea and vomiting. Cholecystectomy. History of cervical cancer. The lung bases are clear. No hepatic mass or intrahepatic biliary ductal dilatation identified. Normal density of the liver parenchyma identified. Spleen is unremarkable. Mild fatty atrophic changes of the pancreas are nonspecific. No biliary duct dilatation is seen. The adrenal glands are unremarkable. No focal renal lesion, nephrolithiasis or obstructive uropathy identified. No aortic aneurysm or dissection is identified. No retroperitoneal abnormality seen. Stomach is nondistended. Normal caliber small bowel loops identified. The appendix is not well seen. There are no secondary signs of acute appendicitis. There is no diverticulitis or colitis. The uterus and adnexal structures unremarkable. Urinary bladder is unremarkable. No pneumoperitoneum or ascites is present. No adenopathy is seen. The bony structures are intact. CT/CT abdomen pelvis w con IMPRESSION: No contributory findings for weight loss. Cholecystectomy. Impression dictated by: Alberto Saini M.D.03/03/2018 4:22 PM Dictation Location: [facility] Transcribed By: TYRON 03/03/18 162 Dictated By: Alberto Saini DO 03/03/18 1612 Signed By: 03/03/18 162 [facility] Coding Summary.on 06-20-2017 Coding Summary. CODING DATE: 06/20/2017 [facility] STATUS: Home (Routine DC) PAYOR: Medicaid EAPG DESCRIPTION 0163 LEVEL I BLADDER AND KIDNEY PROCEDURES 0439 CLASS V PHARMACOTHERAPY ADMIT DX: REASON FOR VISIT DX: N32.81 Overactive bladder FINAL DX: PRINCIPAL: N32.81 Overactive bladder SECONDARY: N39.41 Urge incontinence E11.9 Type 2 diabetes mellitus without complications I10 Essential (primary) hypertension E78.5 Hyperlipidemia, unspecified J45.909 Unspecified asthma, uncomplicated Z85.41 Personal history of malignant neoplasm of cervix uteri Z79.84 alf (current) use of oral hypoglycemic drugs PYMT PROC EAPG STAT DESCRIPTION DOCTOR NAME DATE NOTE: The code number assigned matches the documented diagnosis and / or procedure in the patient's chart. However, the narrative phrase printed from the coding software may appear abbreviated, or result in slightly different terminology. Coded By: Rosa Mcginnis Date Saved: 06/20/2017 04:16 pm [facility] Main OR Intraoperative Recor wilmer 06-16-2017 Main OR Intraoperative Record IntraOp Document Type FTURO Summary Primary Physician: Riccardo Melgar Jr., MD Finalized Date/Time: 06/16/17 15:09:35 Pt. Name: MDAHAVI KAY/Sex: 1965 Female Med Rec #: [id number] Physician: Riccardo Melgar Jr., MD Financial #: [id number] Pt. Type: O Room/Bed: / Admit/Disch: 06/16/17 13:18:47 - Institution: Case Times FTURO Entry 1 Patient Times In Room 06/16/17 14:55:00 Out Room 06/16/17 15:12:00 Procedure Times Start 06/16/17 15:03:00 Stop 06/16/17 15:09:00 Anesthesia Times Last Modified By: Sana POZO, TITA, Jonelle 06/16/17 15:09:24 Case Attendance FTURO Entry 1 Entry 2 Entry 3 Case Attendee Sana POZO, RN, Lida RAMOS, Shannon Melgar Jr., MD, Riccardo Sal Role Performed Yield Analyst - Primary Scrub - Primary Surgeon - Primary Time In 06/16/17 14:55:00 06/16/17 14:55:00 06/16/17 14:55:00 Time Out 06/16/17 15:12:00 06/16/17 15:12:00 06/16/17 15:12:00 Procedure CYSTOSCOPY LOCAL BOTOX CYSTOSCOPY LOCAL BOTOX CYSTOSCOPY LOCAL BOTOX INJECTION(.) INJECTION(.) INJECTION(.) Comments Last Modified By: Sana POZO, TITA, Sana POZO, TITA, Sana POZO, TITA, Jonelle 06/16/17 15:09:27 Jonelle 06/16/17 15:09:27 Jonelle 06/16/17 15:09:27 Surgical Procedures FTURO Entry 1 Procedure Description Procedure CYSTOSCOPY LOCAL BOTOX Modifiers . INJECTION Surgeon Description CYSTOSCOPY WITH BOTOX 100 UNITS lot number [id number] Primary Procedure Yes Primary Surgeon Ramón Buchanan MD, Riccardo Macias Start 06/16/17 15:03:00 Stop 06/16/17 15:09:00 Anesthesia Type Local Surgical Service Urology Wound Class 2 - Clean-Contaminated Last Modified By: Sana POZO RN, Jonelle 06/16/17 15:09:30 General Case Data FTURO Pre-Care Text: Classifies surgical wound, implements aseptic technique, initiates traffic control Entry 1 Case Information OR URO 1 FT Case Level None Wound Class 2 - Clean-Contaminated Specialty Urology Preop Diagnosis URG IN CONTINENCE AND Postop Same As Preop Yes OVER ACTIVE BLADDER Postop Diagnosis URG IN CONTINENCE AND Outcomes Met? Yes OVER ACTIVE BLADDER Last Modified By: Sana POZO RN, Jonelle 06/16/17 14:01:27 Post-Care Text: The patient is free from signs and symptoms of infection EU IntraOp - FTURO Pre-Care Text: Implements protective measures prior to operative or invasive procedure, confirms identity before the operative or invasive procedure, verifies operative procedure, surgical site, and laterality Entry 1 EU Perioperative Protocols Procedure(s) CYSTOSCOPY LOCAL BOTOX Patient Identity Birthday, ID Band INJECTION(.) Verified (select at Check, Patient least 2): Participation Consents / H and P HandP, Surgery/Procedure Operative Site N/A Verified Consent Marking Verified Surgical Site Yes Laterality Verified n/a Verified Procedure Verified Yes Correct Patient Yes Position Verified Availability Equipment, Implant, Time Out Sana POZO RN, Verified (If Medication Participants Lida Sal [facility], [facility] Applicable) RRamón Jr., MD, Donald L Time Out Complete 06/16/17 15:00:00 Allergies Reviewed? Yes Allergies Reviewed Self/Patient With Body Position Low Lithotomy Prep Area perinium Prep Agents Betadine Solution Skin. Condition Intact, [place], Warm, and Dry Additional None Specimens Collected Vitals - EU Blood Pressure 139/84 Pulse 68 bpm Respirations 18 br/min SPO2 93 % EBL 0 IandO - EU Total Intake 0 mL Total Output 0 mL Outcomes Met? Yes Last Modified By: Sana POZO RN, Kelly 06/16/17 15:09:16 Post-Care Text: The patient is free from signs and symptoms of injury caused by extraneous objects Case Comments Finalized By: Sana POZO RN, Kelly Document Signatures Signed By: Sana POZO RN, Kelly 06/16/17 15:09 Normal [facility] Main OR Preoperative Recordo n 06-16-2017 Main OR Preoperative Record Holding Area Document Type FTURO Summary Primary Physician: Riccardo Melgar Jr., MD Finalized Date/Time: 06/16/17 14:00:57 Pt. Name: MADHAVI KAY/Sex: 1965 Female Med Rec #: [id number] Physician: Riccardo Melgar Jr., MD Financial #: [id number] Pt. Type: O Room/Bed: / Admit/Disch: 06/16/17 13:18:47 - Institution: Case Times Holding FTURO Pre-Care Text: Verifies consent for planned procedure, identifies individual values and wishes concerning care, includes family members in perioperative teaching Secures patient's records' belongings, and valuables, maintains patient's dignity and privacy, and maintains patient confidentiality Entry 1 In Holding 06/16/17 13:49:00 Outcomes Met? Yes Last Modified By: Yvonne Coy LPN 06/16/17 13:49:05 Post-Care Text: The patient participates in decisions affecting his or her perioperative plan of care The patient's right to privacy is maintained Surgery Checklist FTURO Entry 1 Patient Birthday, ID Band Procedure History and Physical, Identification: Check, Patient Verification: Surgical Consent, With Participation Patient NPO after Midnight: n/a Complaints of Pain: Yes Pain Comment: 07/07 stomach Skin Integrity Intact, [place], Warm, & Dry Vitals - EU Blood Pressure 141/97 Pulse 82 bpm Respirations 18 br/min SPO2 RN Reviewed Yes Last Modified By: Sana POZO RN, Kelly 06/16/17 14:00:49 Finalized By: Sana POZO RN, Kelly Document Signatures Signed By: Yvonne Coy LPN 06/16/17 13:50 Sana POZO RN, Kelly 06/16/17 14:00 Normal [facility] Operative Reporton Operative Report Patient: MADHAVI KAY Age: 51 years Sex: Female : 1965 Associated Diagnoses: None Author: Ramón Buchanan MD, Riccardo Macias Procedure Operative Information Details: Date/ Time: 06/16/17 15:11:00. 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 Post-Op Dx: Same. Anesthesia Type: Local. Procedure: Local Cystoscopy with botox injection. Complications: None. Risks/Benefits/Infor med Consent: Surgical risks, benefits, details of the procedure have been explained to the patient, Full informed consent has been obtained. Intraoperative Information Prepped: Patient is brought back to the endoscopy suite, Female Prep (Patient is placed in modified dorso/lithotomy position, 5 cc 2% Xylocaine Jelly is placed per Urethra, Straight cath inserted to obtain urine specimen, 60 cc 2% Xylocaine liquid inserted into bladder, 5 additional cc 2% Xylocaine Jelly is placed per Urethra, Patient in sitting position for 20 min dwell), Urine Specimen Results Negative for infection, Patient prepped in the usual fashion with Betadine solution, After waiting several minutes the Cystoscope is introduced. Procedure: The trigone was identified and evaluated, 20 template injection sites were identified, The bladder was instilled with enough saline to achieve adequate visualization for the injections, The needle was inserted approximately 2 mm into the detrusor spaced approximately 1 cm apart, A total of 20 injections with a 0.5 ml volume was delivered at each site for a total of 100 units of Botox. The Urethra is: Normal. The Bladder is: Normal, Trabeculated None (0). The ureteral orifices: Show efflux of clear urine. Devices Implanted: None. Removal: Cystoscope is removed, The patient tolerated it well. Postoperative Information Discharge: Patient is discharged home with antibiotic coverage, Follow up arranged. [facility] Comment on above: Result Comment: Elec tronically Signed By: Ramón Buchanan MD, Riccardo Macias\.br\Date and Time Signed: 06/16/17 15:12 EDT Coding Summary.on 01-19-2017 Coding Summary. CODING DATE: 01/19/2017 FINAL [facility] STATUS: Home (Routine DC) PAYOR: Medicaid EAPG DESCRIPTION 0161 URINARY STUDIES AND PROCEDURES 0425 LEVEL I OTHER MISCELLANEOUS ANCILLARY PROCEDURES 0288 DIAGNOSTIC ULTRASOUND EXCEPT OBSTETRICAL AND VASCULAR OF LOWER EXTREMITIES ADMIT DX: REASON FOR VISIT DX: N35.9 Urethral stricture, unspecified FINAL DX: PRINCIPAL: N35.9 Urethral stricture, unspecified SECONDARY: R35.1 Nocturia R30.0 Dysuria N39.41 Urge incontinence E11.9 Type 2 diabetes mellitus without complications Z79.82 alf (current) use of aspirin I10 Essential (primary) hypertension E78.5 Hyperlipidemia, unspecified G40.909 Epilepsy, unspecified, not intractable, without status epilepticus Z85.41 Personal history of malignant neoplasm of cervix uteri Z79.84 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 However, the narrative phrase printed from the coding software may appear abbreviated, or result in slightly different terminology. Coded By: Caroline Ross Date Saved: 01/19/2017 11:28 am [facility] Encounters Encounter Date Encounter Type Care Provider Facility Start: 02-15-2022 End: 02-15-2022 ambulatory BLANCA GRANT [facility] Start: 10-30-2021 End: 10-30-2021 ambulatory MICHELLE REBOLLAR Facility:[facility] Start: 10-15-2021 End: 10-15-2021 ambulatory MICHELLE REBOLLAR Facility:[facility] Start: 09-07-2021 End: 09-08-2021 ambulatory PEDRO CHU [facility] Start: 09-07-2021 End: 09-10-2021 ambulatory PEDRO ERVIN VLAD [facility] Start: 09-07-2021 End: 09-07-2021 Subsequent hospital visit by physician Michelle Rebollar Work Phone: [facility] Comment on above: Hepatomegaly; Splenomegaly; Thrombocytopenia (HCC) Start: 07-15-2021 End: 07-15-[address] GENNA SUTHERLAND Facility:[facility] Start: 03-04-2021 End: 03-04-[address] DOCTOR OROZCO Facility:[facility] Start: 06-16-2017 End: 06-17-2017 Ambulatory Vincenzo Townsend Facility:[facility] Start: 01-13-2017 End: 01-14-2017 Ambulatory Vincenzo Townsend Facility:[facility] Procedures Date Procedure Procedure Detail Performing Clinician Start: 09-07-2021 Acute hepatitis panel Yesi Chu STABILIZING MACHINE OPERATOR - ROTARY ENVELOPE MACHINE OPERATOR Work Phone: Start: 09-07-2021 Prothrombin time Miguel A Chu STABILIZING MACHINE OPERATOR - ROTARY ENVELOPE MACHINE OPERATOR Work Phone: Plan of Treatment Date Care Activity Detail Author Start: 10-29-2021 Influenza vaccination Flu vaccine (# 1) [employer] Start: 12-20-2015 Screening for malign ant neoplasm of breast Breast cancer screen [employer] Start: 12-20-2015 Shingles vaccine (1 of 2) Odonnell gles vaccine (1 of 2) [employer] Start: 2010 Screening for malign ant neoplasm of colon [employer] Start: 2005 Lipid panel [employer] Start: 2000 Diabetes screen Diabetes screen [employer] Start: 12-20-1995 Screening for malign ant neoplasm of cervix [employer] Start: 1986 Screening for malign ant neoplasm of cervix [facility] Start: 1984 DTaP/Tdap/Td vaccine (1 - Tdap) DTaP/Tdap/Td vaccine (1 - Tdap) [facility] [employer] Start: 1980 HIV screening HIV screen [facility] [employer] Start: 1977 Depression Screen Depression Screen [facility] [employer] Start: 1970 COVID-19 Vaccine (1) COVID-19 Vaccin e (1) [facility] [employer] End: 09-07-2021 Zqrkb-9-Cozvigmvpzh w Phenotype [facility]: Comment on above: 1 Occurrences starti ng 09/07/2021 until 09/07/2021 End: 09-07-2021 Ceruloplasmin [facility]: Comment on above: 1 Occurrences starti ng 09/07/2021 until 09/07/2021 End: 09-07-2021 CMV by PCR Quantitative [facility] [employer] Phone: Comment on above: Once for 1 Occurrenc es starting 09/07/2021 until 09/07/2021 End: 09-07-2021 CMV DNA, quantitative, PCR CMV DNA, quantitative, PCR Lab Routine Hepatomegaly Splenomegaly 1 Occurrences starting 09/07/2021 until 09/07/2021 [facility] [employer] Phone: Comment on above: 1 Occurrences starti ng 09/07/2021 until 09/07/2021 End: 09-07-2021 EBV, Quant. PCR [facility] [employer] Phone: Comment on above: Once for 1 Occurrenc es starting 09/07/2021 until 09/07/2021 End: 09-07-2021 Bree-Doherty Virus DNA, Quant PCR Bree-Doherty Virus DNA, Quant PCR Lab Routine Hepatomegaly Splenomegaly 1 Occurrences starting 09/07/2021 until 09/07/2021 [facility] [employer] Phone: Comment on above: 1 Occurrences starti ng 09/07/2021 until 09/07/2021 End: 09-07-2021 Ferritin [Mass/volume] in Serum or Plasma [employer] Phone: Comment on above: 1 Occurrences starti ng 09/07/2021 until 09/07/2021 End: 09-07-2021 Hepatic function 2000 panel - Serum or Plasma [employer] Phone: Comment on above: 1 Occurrences starti ng 09/07/2021 until 09/07/2021 End: 09-07-2021 Mitochondrial Antibodies, M2, IgG [employer] Phone: Comment on above: 1 Occurrences starti ng 09/07/2021 until 09/07/2021 End: 09-07-2021 Nuclear Ab [Titer] in Serum by Immunofluorescence [employer] Phone: Comment on above: 1 Occurrences starti ng 09/07/2021 until 09/07/2021 End: 09-07-2021 Smooth Muscle Antibody Quant [employer] Phone: Comment on above: 1 Occurrences starti ng 09/07/2021 until 09/07/2021 End: 09-07-2021 Transferrin [Mass/volume] in Serum or Plasma [employer] Phone: Comment on above: 1 Occurrences starti ng 09/07/2021 until 09/07/2021 Payers Date Payer Category Payer Unknown [id number] [id number] 1965 Unknown [id number] [id number] 1965 Unknown [id number] 2.16.84 [id number] 1965 Unknown [id number] 2.16.84 [id number] 1965 Unknown [id number] 2.16.84 [id number] 1965 Unknown [id number] [id number] 1959 Unknown [id number] Social History Date Type Detail Facility Start: 07-22-2021 Tobacco smoking stat [facility] Never smoked tobacco [employer] Phone: Start: 07-22-2021 Tobacco use and exposure Smokeless tobacco non-user [employer] Phone: Start: 07-22-2021 Alcohol intake Lifetime non-d kelsy (finding) [employer] Phone: Start: 07-22-2021 History SDOH Alcohol Frequency 1 [employer] Phone: Start: 1965 Sex Assigned At Not on file B ON [employer] Phone: Progress note 02-15-2022 Note Date & Type Note Facility 02-15-2022 Note Plastic surgery offi ce note Date 02/15/2022 Patient Madhavi Kay Patient presented for evaluation and possible treatment. Patient was referred to us by Her PCP Complains: nasal pain, facial pain, difficulty nasal breathing with CPAP, as result of facial trauma HPI - patient states that in summer 2020 she fell from 13 stairs down at home. She does not remember exact date or time of occurrence. Patient reportedly went later to her PCP and subsequently to the hospital where she was told about her nasal fracture and neuropathy of the facial nerves. Considering reportedly neuropathy no procedure for correction of her nasal fracture was performed according to the patient. Patient at this point indicates pain as 6 out of 10-points to the nose and bilateral malar areas as the sites of pain. She states that once previously she was looking for evaluation by the plastic surgeon in [place] who also could not perform her nasal surgery because of neuropathy of the face. PMH - Dysuria, headaches, sleep apnea on CPAP, stenosis cervical spine, asthma without complication, hypertension, GERD, chronic cirrhosis, chronic kidney disease, endometrial cancer history, spondylosis, injury of the foot, osteoporosis, radiculopathy , type 2 diabetes mellitus, thrombocytopenia Social history - not working, denies smoking drinking or drugs Social History Socioeconomic History Marital status: Spouse name: Not on file Number of children: Not on file Years of education: Not on file Highest education level: Not on file Occupational History Not on file Tobacco Use Smoking status: Not on file Smokeless tobacco: Not on file Substance and Sexual Activity Alcohol use: Not on file Drug use: Not on file Sexual activity: Not on file Other Topics Concern Not on file Social History Narrative Not on file Social Determinants of Health Financial Resource Strain: Not on file Food Insecurity: Not on file Transportation Needs: Not on file Physical Activity: Not on file Stress: Not on file Social Connections: Not on file Intimate Partner Violence: Not on file Housing Stability: Not on file Allergies - alogliptin, amoxicillin, empagliflozin, ibuprofen, loratadine, potassium carbonate including reactions with anaphylaxis Medications - Prior to Admission medications Not on File Review of systems - patient indicates pain as 6 out of 10, also indicates anxiety, poor heat cold tolerance, headaches, nausea vomiting, easy bruising and itching, pain problems with mobility and strength of the lower extremities Physical examination - Patient is awake alert and oriented, appears appropriately responsive, well-nourished, significant central obesity with thin extremities, no apparent distress, very emotional and persuasive speech pattern, excessive hand gestures Patient was examined in the presence of a greenhouse florist and the resident Vital signs stable, afebrile Head-normocephalic, atraumatic Normal facial features Pupils 2 mm round, sclera clear Nose in the midline, intact with good projection and symmetry. Caudal septum appears somewhat deviated to the right minimally. Patient indicates reduced sensation all over the skin of the nose. Isolated nostril breathing appears intact bilaterally Upper mid and lower face grossly intact Patient indicates significant pain pointing to the lower eyelids and cheeks bilaterally. On exam however she indicates proper sensation and when distracted did not react to significant palpation and pressure in the areas of description. CN 2-7 appear intact Neck-supple Chest-comfortable on room air, respiratory rate 12-14, no shortness of breath, Upper extremities well-developed and grossly intact Lower extremities well-developed and grossly intact Neurologically-grossly intact Available documentation and imaging reviewed Summary - findings discussed with the patient. At this point patient has normal shape form and stability of the nose, no deficit of nasal breathing identified. No deficits instability, asymmetry or abnormalities appreciated over the upper and mid face as well. While patient complains of the pain and change in sensation, I explained to the patient that her complaints are inconsistent with the anatomy of the innervation and I could not identify any clinical abnormality at this time. Analyzing previous imaging from the patient majority of the time she did not have significant findings and he complains are rather vague. [facility] Clinical Note 07-15-2021 Note Date & Type Note Facility 07-15-2021 Note PROCEDURE: XR FOOT R T MIN 3 VIEWS, XR ANKLE RT MIN 3 VIEWS, XR KNEE RT 4V or > HISTORY: Pain in right knee, ankle, and foot since falling down stairs one week ago COMPARISON: None. FINDINGS: BONES:Cortical irregularity along the articular weightbearing surface of the medial femoral condyle; possible mild impaction fracture. SOFT TISSUES:No visible soft tissue swelling. EFFUSION:None visible. OTHER: Negative. IMPRESSION: 1. Mild impaction fracture versus more chronic changes involving the articular weightbearing surface of the medial femoral condyle. Consider MRI of the knee for further evaluation. 2. No acute bone abnormality of the right ankle and right foot. Electronically authenticated by: CASSY JOHNSTON Date: 2021-07-15 14:31 [facility] Clinical Note 07-15-2021 Note Date & Type Note Facility 07-15-2021 Note PROCEDURE: XR FOOT R T MIN 3 VIEWS, XR ANKLE RT MIN 3 VIEWS, XR KNEE RT 4V or > HISTORY: Pain in right knee, ankle, and foot since falling down stairs one week ago COMPARISON: None. FINDINGS: BONES:Cortical irregularity along the articular weightbearing surface of the medial femoral condyle; possible mild impaction fracture. SOFT TISSUES:No visible soft tissue swelling. EFFUSION:None visible. OTHER: Negative. IMPRESSION: 1. Mild impaction fracture versus more chronic changes involving the articular weightbearing surface of the medial femoral condyle. Consider MRI of the knee for further evaluation. 2. No acute bone abnormality of the right ankle and right foot. Electronically authenticated by: CASSY JOHNSTON Date: 2021-07-15 14:31 [facility] Clinical Note 07-15-2021 Note Date & Type Note Facility 07-15-2021 Note PROCEDURE: XR FOOT R T MIN 3 VIEWS, XR ANKLE RT MIN 3 VIEWS, XR KNEE RT 4V or > HISTORY: Pain in right knee, ankle, and foot since falling down stairs one week ago COMPARISON: None. FINDINGS: BONES:Cortical irregularity along the articular weightbearing surface of the medial femoral condyle; possible mild impaction fracture. SOFT TISSUES:No visible soft tissue swelling. EFFUSION:None visible. OTHER: Negative. IMPRESSION: 1. Mild impaction fracture versus more chronic changes involving the articular weightbearing surface of the medial femoral condyle. Consider MRI of the knee for further evaluation. 2. No acute bone abnormality of the right ankle and right foot. Electronically authenticated by: CASSY JOHNSTON Date: 2021-07-15 14:31 [facility] Evaluation note Note Date & Type Note Facility Evaluation note Diagnosis Hepatomegaly Splenomegaly Thrombocytopenia (HCC) Thrombocytopenia, unspecified documented in this encounter [facility] Work Phone: Summary Purpose Family History No Family History Records FoundNo Family History Records FoundNo Family History Records FoundNo Family History Records FoundNo Family History Records Found Advance Directives No Advanced Directives Records FoundNo Advanced Directives Records FoundNo Advanced Directives Records FoundNo Advanced Directives Records FoundNo Advanced Directives Records Found Additional Source Comments INFORMATION SOURCE (unrecogn ized section and content) DATE CREATED AUTHOR 08/18/2017 [facility] DATE CREATED AUTHOR AUTHOR'S ORGANIZ ATION 12/05/2018 [facility] DATE CREATED AUTHOR AUTHOR'S ORGANIZ ATION 09/20/2021 [facility] DATE CREATED AUTHOR AUTHOR'S ORGANIZ ATION 11/02/2021 [facility] DATE CREATED AUTHOR AUTHOR'S ORGANIZ ATION 02/19/2022 [facility] Care Teams (unrecognized sec tion and content) Director Medical Safety Relationship Specialty Start Date End Date Michelle Rebollar [address] [place] [address] PCP - General 07/22/21 FOR RECORDS PERTAINING TO PATIENTS WHO ARE OR HAVE BEEN ENROLLED IN A CHEMICAL DEPENDENCY/SUBSTANCEABUSE PROGRAM, SOME INFORMATION MAY BE OMITTED. This clinical summary was aggregated from multiple sources. Caution should be exercised in using it in the provision of clinical care. This summary normalizes information from multiple sources, and as a consequence, information in this document may materially change the coding, format and clinical context of patient data. In addition, data may be omitted in some cases. CLINICAL DECISIONS SHOULD BE BASED ON THE PRIMARY CLINICAL RECORDS. [facility] [employer] [facility] provides no warranty or guarantee of the accuracy or completeness of information in this document.
--- NOTE | 2023-03-05 15:34 | CT_ITS ---
[address] [address] Patient Name: KATELYN KHAN MRN: [id number] date: 1965 Sex: F Assigned Patient Location: ER Current Patient Location: ER Accession/Order Number: [id number] Exam Date: 03/05/2023 17:00 Report Date: 03/05/2023 17:57 At the request of: IHSAN ENCARNACION Procedure: CT abdomen pelvis w con CT ABDOMEN AND PELVIS WITH CONTRAST: INDICATION: llq pain. COMPARISON: 02/11/2023. TECHNIQUE: Helical CT images of the abdomen and pelvis were obtained after the administration of intravenous contrast. Dose reduction techniques were achieved by using automated exposure control and/or adjustment of mA and/or kV according to patient size and/or use of iterative reconstruction technique. FINDINGS: LOWER CHEST: Subpleural densities are seen in the lower lobes bilaterally which may represent subsegmental atelectasis. There is a tiny hiatal hernia. LIVER: There is hepatomegaly and diffuse hepatic steatosis. GALLBLADDER AND BILIARY SYSTEM: Status post cholecystectomy. SPLEEN: The spleen is enlarged measuring 17.6 cm in craniocaudal dimension. PANCREAS: Moderate diffuse fatty atrophy of the pancreas. No pancreatic ductal dilatation. ADRENAL GLANDS: Unremarkable. KIDNEYS AND URETERS: Mild bilateral renal atrophy. The kidneys enhance symmetrically. There is no hydronephrosis. No focal renal lesions. BLADDER: Unremarkable. GASTROINTESTINAL TRACT: No evidence of bowel obstruction or colitis. Normal appendix. There is sigmoid and left colonic diverticulosis without evidence of diverticulitis. VASCULATURE: Unremarkable. RETROPERITONEUM AND LYMPH NODES: No lymphadenopathy or mass. PERITONEUM/MESENTERY: No abdominal ascites. No free air. PELVIS: No pelvic ascites or lymphadenopathy. BODY WALL: Tiny fat-containing umbilical hernia. BONES: Cement augmentation of the T12, L1 and L3 vertebral bodies. 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 No evidence of cortical collapse. CT/CT abdomen pelvis w con IMPRESSION: 1. Diverticulosis without evidence of diverticulitis. 2. Splenomegaly. 3. Hepatomegaly and diffuse hepatic steatosis. 4. 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 5. Tiny hiatal hernia. Electronically authenticated by: FABIEN PLATT Date: 03/05/2023 17:57
[2023-03-05 15:47] LABS: Basophils Percent Auto 0.5 % (0.2-2.0); Eosinophils Absolute Auto 0.1 10^3/uL (0.0-0.7); Eosinophils Percent Auto 1.5 % (0.9-7.0); Hematocrit 41.6 % (36.0-48.0); Hemoglobin 13.8 g/dL (12.0-16.0); Immature Granulocytes Abs Auto 0.02 10^3/uL (0.00-0.03); Immature Granulocytes Pct Auto 0.3 % (0.0-0.5); Lymphocytes Absolute Auto 2.5 10^3/uL (1.2-3.8); Lymphocytes Percent Auto 42.1 % (20.5-60.0); Mean Corpuscular HGB Conc 33.2 g/dL (29.9-35.2); Mean Corpuscular Hemoglobin 31.1 pg (26.7-34.0); Mean Corpuscular Volume 93.7 fL (81.0-99.0); Mean Platelet Volume 12.1 fL (9.5-13.5); Monocytes Absolute Auto 0.3 10^3/uL (0.3-0.8); Monocytes Percent Auto 4.5 % (1.7-12.0); Neutrophils Percent Auto 51.1 % (43.0-75.0); Platelet Count 97 10^3/uL (150-450); Red Blood Count 4.44 10^6/uL (4.20-5.40); Red Cell Distribution Width 13.5 % (11.0-15.0); White Blood Count 5.8 10^3/uL (4.0-11.0)
[2023-03-05 15:49] LABS: Bilirubin Urine NEGATIVE (NEGATIVE); Blood Urine NEGATIVE (NEGATIVE); Clarity Urine CLEAR (CLEAR); Color Urine YELLOW (YELLOW); Glucose Urine UA 500 mg/dL (NEGATIVE); Ketones Urine NEGATIVE (NEGATIVE); Leukocyte Esterase Urine NEGATIVE (NEGATIVE); Nitrite Urine NEGATIVE (NEGATIVE); Protein Urine NEGATIVE (NEG/TRACE); Specific Gravity Urine >=1.030 (1.005-1.025); Urobilinogen Urine 0.2 EU/dL (0.2-1.0); pH Urine 5.5 (5.0-9.0)
[2023-03-05 15:51] LABS: Alanine Aminotransferase 41 U/L (14-59); Albumin Globulin Ratio 1.1; Albumin Level 3.7 g/dL (3.4-5.0); Alkaline Phosphatase 65 U/L (46-116); Anion Gap 10.3; Aspartate Amino Transferase 27 U/L (15-37); BUN Creatinine Ratio 17.3; Bilirubin Total 0.7 mg/dL (0.2-1.0); Calcium 9.8 mg/dL (8.5-10.1); Carbon Dioxide 25.9 mmol/L (21.0-32.0); Chloride 101 mmol/L (98-107); Estimated GFR (African America >60 (>=60); Estimated GFR (Non-African Ame 51 (>=60); Globulin 3.5 g/dL; Glucose 269 mg/dL (74-106); Potassium 4.2 mmol/L (3.5-5.1); Sodium 133 mmol/L (136-145); Total Protein 7.2 g/dL (6.4-8.2)
[2023-03-05] MEDS: 0.9 % SODIUM CHLORIDE 1,000 ML 999 ML IV (15:51)
[2023-03-05 15:54] LABS: Urine Microscopic Indicated NO
[2023-03-05 16:20] VITALS: BP 120/58; PULSE 58; RESP 18; O2SAT 99
[2023-03-05 16:44] LABS: HCG Qualitative Urine* NEGATIVE (NEGATIVE)
[2023-03-05 17:16] VITALS: BP 145/88; PULSE 54; RESP 16; O2SAT 100
--- NOTE | 2023-03-05 17:31 | ED_ITS ---
HPI - General Adult General Chief complaint: Abdominal Pain Stated complaint: FLANK PAIN RIGHT SIDE Time Seen by Provider: 03/05/23 15:33 Source: patient Mode of arrival: walk-in History of Present Illness HPI narrative: A 57-year-old female presents here with a chief complaint of diffuse lower abdominal pain.Patient states she has a history of irritable bowel syndrome. She denies any diarrhea or constipation. States she's had symptoms several weeks ago constipation. She has had normal bowel movements. Denies any fevers chills. Abdomen soft. Limited guarding on palpation to the right left lower quadrant. Nontoxic. Related Data Home Medications Medication Instructions Recorded Confirmed alprazolam 0.25 mg tablet 0.25 mg PO TID PRN anxiety 09/03/22 02/02/23 glipizide 5 mg tablet, extended 5 mg PO DAILY 09/03/22 02/10/23 release 24 hr insulin glargine 100 unit/mL (3 1 unit subcut DAILY 09/03/22 02/02/23 mL) subcutaneous pen (Lantus Solostar U-100 Insulin) metformin 500 mg tablet 500 mg PO BID 09/03/22 02/10/23 spironolactone 50 mg tablet 50 mg PO DAILY 09/03/22 02/10/23 prochlorperazine maleate 10 mg 10 mg PO DAILY PRN anxiety 02/10/23 02/10/23 tablet Previous Rx's Medication Instructions Recorded hyoscyamine sulfate 0.125 mg 0.125 mg PO Q6H PRN abdominal pain 02/03/23 sublingual tablet (Levsin/SL) #20 tabs ondansetron 4 mg disintegrating 4 mg PO Q6H PRN nausea and 02/03/23 tablet vomiting #20 tabs acetaminophen 325 mg capsule 325 mg PO Q6H PRN fever or pain 03/05/23 (Tylenol) #60 caps ondansetron 4 mg disintegrating 4 mg PO Q8H PRN nausea and 03/05/23 tablet vomiting 4 days #10 tabs Allergies Allergy/AdvReac Type Severity Reaction Status Date / Time Penicillins Allergy Unknown Verified 02/11/23 14:17 albuterol Allergy Swelling Verified 02/11/23 14:17 of Lip/Tongue/Throat empagliflozin AdvReac Mild Nausea Verified 02/11/23 14:17 [From Jardiance] amoxicillin AdvReac Verified 02/11/23 14:17 ibuprofen [From Motrin] AdvReac Verified 02/11/23 14:17 loratadine AdvReac Verified 02/11/23 14:17 Review of Systems ROS Narrative All Systems are negative except as noted/marked.All systems reviewed and otherwise negative PFSH PFS Medical History (Updated 03/05/23 @ 18:28 by Laura Taveras) Hx of ovarian cancer ?Z85.43 - Personal history of malignant neoplasm of ovary (ICD-10) Hx of cervical cancer ?Z85.41 - Personal history of malignant neoplasm of cervix uteri (ICD-10) Hx of renal calculi ?Z87.442 - Personal history of urinary calculi (ICD-10) History of COPD ?Z87.09 - Personal history of other diseases of the respiratory system (ICD- 10) IDDM (insulin dependent diabetes mellitus) Hx of gastroesophageal reflux (GERD) ?Z87.19 - Personal history of other diseases of the digestive system (ICD-10) Hx of cardiac murmur ?Z86.79 - Personal history of other diseases of the circulatory system (ICD- 10) Hypertension ?I10 - Essential (primary) hypertension (ICD-10) Hx of irritable bowel syndrome ?Z87.19 - Personal history of other diseases of the digestive system (ICD-10) History of asthma ?Z87.09 - Personal history of other diseases of the respiratory system (ICD- 10) Hx of sleep apnea ?Z86.69 - Personal history of other diseases of the nervous system and sense organs (ICD-10) Surgical History (Updated 09/18/22 @ 13:40 by Sarbjit Kauffman) Hx of tonsillectomy ?Z90.89 - Acquired absence of other organs (ICD-10) Hx laparoscopic cholecystectomy ?Z90.49 - Acquired absence of other specified parts of digestive tract (ICD- 10) Hx of arthroscopy of shoulder ?Z98.890 - Other specified postprocedural states (ICD-10) Hx of unilateral oophorectomy ?Z90.721 - Acquired absence of ovaries, unilateral (ICD-10) History of loop electrosurgical excision procedure (LEEP) ?Z98.890 - Other specified postprocedural states (ICD-10) Social History Smoking status: Never smoker Exam Narrative Exam Narrative: Nurses note and vital signs reviewed and patient is not hypoxic. General: The patient appears well and in no apparent distress. Patient is resting comfortably on cart. Skin: Warm, dry, no pallor noted. There is no rash noted. Head: Normocephalic, atraumatic Eye: Normal conjunctiva, no drainage, EOMI. PERRL Ears, Nose, Mouth, and Throat: oral mucosa is moist. Nares patent. Mouth without vesicles. Ear canals patent. Tm's without Erythema Cardiovascular: Regular Rate and Rhythm Respiratory: Patient is in no distress, no accessory muscle use, lungs are clear to auscultation, no wheezing, rales or rhonchi Back: non-tender, no CVA tenderness bilaterally to percussion. GI: Right lower quadrant, diffuse left lower quadrant abdominal pain no rebound or guarding, Normal bowel sounds, Musculoskeletal: The patient has no evidence of calf tenderness, no pitting edema, symmetrical pulses noted bilaterally Neurological: A&O x4, normal speech Psychiatric: Cooperative Constitutional Vital Signs, click to edit/add: Last Vital Signs Temp 97.8 F 03/05/23 14:12 Pulse 64 03/05/23 18:30 Resp 18 03/05/23 18:30 BP 126/75 03/05/23 18:30 Pulse Ox 97 03/05/23 18:30 O2 Del Method Room Air 03/05/23 14:12 Course Vital Signs Vital signs: Vital Signs Temperature 97.8 F 03/05/23 14:12 Pulse Rate 68 03/05/23 14:12 Respiratory Rate 14 03/05/23 14:12 Blood Pressure 131/76 03/05/23 14:12 Pulse Oximetry 98 03/05/23 14:12 Oxygen Delivery Method Room Air 03/05/23 14:12 Temperature 97.8 F 03/05/23 14:12 Pulse Rate 64 03/05/23 18:30 Respiratory Rate 18 03/05/23 18:30 Blood Pressure 126/75 03/05/23 18:30 Pulse Oximetry 97 03/05/23 18:30 Oxygen Delivery Method Room Air 03/05/23 14:12 Medical Decision Making MDM Narrative Medical decision making narrative: 57-year-old female presented here to [facility] chief complaint abdominal pain. She said pain for the last several days. She is nontoxic-appearing here on examination.On arrival to the emergency room, IV was established and blood work was obtained. CT scan was then ordered. CBC and BMP within normal limits. CT scan below rates that she has diverticulosis without diverticulitis. She also has a history of avascular necrosis which is Chronic. Patient was given IV fluids here in the emergency room. She is able to be discharged home. She requested Zofran. She is also given prescription for Tylenol.Also discussed with patient's he agrees with plan of care. Patient's comfortable going home Differential Diagnosis Differential Diagnosis: Abdominal pain, diverticulitis, diverticulosis, diarrhea Medical Records Medical records reviewed: Yes I reviewed the patient's medical records Lab Data Lab results reviewed: Yes I reviewed the patient's lab results Labs: Lab Results 03/05/23 03/05/23 Range/Units 14:50 14:55 WBC 5.8 (4.0-11.0) 10^3/uL RBC 4.44 (4.20-5.40) 10^6/uL Hgb 13.8 (12.0-16.0) g/dL Hct 41.6 (36.0-48.0) % MCV 93.7 (81.0-99.0) fL MCH 31.1 (26.7-34.0) pg MCHC 33.2 (29.9-35.2) g/dL RDW 13.5 (11.0-15.0) % Plt Count 97 L (150-450) 10^3/uL MPV 12.1 (9.5-13.5) fL Neut % (Auto) 51.1 (43.0-75.0) % Lymph % (Auto) 42.1 (20.5-60.0) % [place] % (Auto) 4.5 (1.7-12.0) % Eos % (Auto) 1.5 (0.9-7.0) % Baso % (Auto) 0.5 (0.2-2.0) % Neut # (Auto) 3.0 (1.4-6.5) 10^3/uL Lymph # (Auto) 2.5 (1.2-3.8) 10^3/uL [place] # (Auto) 0.3 (0.3-0.8) 10^3/uL Eos # (Auto) 0.1 (0.0-0.7) 10^3/uL Baso # (Auto) 0.0 (0.0-0.1) 10^3/uL Abs Immat Gran (auto) 0.02 (0.00-0.03) 10^3/uL Imm/Tot Granulo (auto) 0.3 (0.0-0.5) % Sodium 133 L (136-145) mmol/L Potassium 4.2 (3.5-5.1) mmol/L Chloride 101 (98-107) mmol/L Carbon Dioxide 25.9 (21.0-32.0) mmol/L Anion Gap 10.3 BUN 19.0 H (7.0-18.0) mg/dL Creatinine 1.10 H (0.55-1.02) mg/dL Est GFR ( Amer) >60 (>=60) Est GFR (Non-Af Amer) 51 L (>=60) BUN/Creatinine Ratio 17.3 Glucose 269 H (74-106) mg/dL Calcium 9.8 (8.5-10.1) mg/dL Total Bilirubin 0.7 (0.2-1.0) mg/dL AST 27 (15-37) U/L ALT 41 (14-59) U/L Alkaline Phosphatase 65 (46-116) U/L Total Protein 7.2 (6.4-8.2) g/dL Albumin 3.7 (3.4-5.0) g/dL Globulin 3.5 g/dL Albumin/Globulin Ratio 1.1 Lipase 28.0 (16.0-77.0) U/L Urine Color Yellow (YELLOW) Urine Clarity Clear (CLEAR) Urine pH 5.5 (5.0-9.0) Ur Specific [place] >=1.030 A (1.005-1.025) Urine Protein Negative (NEG/TRACE) mg/dL Urine Glucose (UA) 500 A (NEGATIVE) mg/dL Urine Ketones Negative (NEGATIVE) mg/dL Urine Occult Blood Negative (NEGATIVE) Urine Nitrite Negative (NEGATIVE) Urine Bilirubin Negative (NEGATIVE) Urine Urobilinogen 0.2 (0.2-1.0) EU/dL Ur Leukocyte Esterase Negative (NEGATIVE) Urine HCG, Qual Negative (NEGATIVE) Imaging Data CT scan - abdomen: Attestation: I personally reviewed and interpreted this imaging study as follows: Radiologist's impression: ITS Impressions Abdomen/Pelvis CT 01/06/24 15:34 IMPRESSION: 1. Diverticulosis without evidence of diverticulitis. 2. Splenomegaly. 3. Hepatomegaly and diffuse hepatic steatosis. 4. 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 5. Tiny hiatal hernia. Electronically authenticated by: FABIEN PLATT Date: 03/05/2023 17:57 Discharge Plan Discharge Chief Complaint: Abdominal Pain Clinical Impression: Diverticulosis, Abdominal pain Patient Disposition: Home, Self-Care Time of Disposition Decision: 18:28 Condition: Good Prescriptions / Home Meds: New acetaminophen [Tylenol] 325 mg capsule 325 mg PO Q6H PRN (Reason: fever or pain) Qty: 60 0RF ondansetron 4 mg tablet,disintegrating 4 mg PO Q8H PRN (Reason: nausea and vomiting) 4 Days Qty: 10 0RF No Action metformin 500 mg tablet 500 mg PO BID glipizide 5 mg tablet extended release 24hr 5 mg PO DAILY alprazolam 0.25 mg tablet 0.25 mg PO TID PRN (Reason: anxiety) spironolactone 50 mg tablet 50 mg PO DAILY insulin glargine [Lantus Solostar U-100 Insulin] 100 unit/mL (3 mL) insulin pen 1 unit SUBCUT DAILY prochlorperazine maleate 10 mg tablet 10 mg PO DAILY PRN (Reason: anxiety) ondansetron 4 mg tablet,disintegrating 4 mg PO Q6H PRN (Reason: nausea and vomiting) Qty: 20 0RF hyoscyamine sulfate [Levsin/SL] 0.125 mg tablet, sublingual 0.125 mg PO Q6H PRN (Reason: abdominal pain) Qty: 20 0RF Instructions: Diverticulosis (ED), Abdominal Pain (ED) Stand Alone Forms: Portal Instructions Referrals: Aubrey Salazar [Primary Care Provider] - 1 week Discharge Date/Time: 03/05/23 18:36
[2023-03-05 18:30] VITALS: BP 126/75; PULSE 64; RESP 18; O2SAT 97
== END 2023-03-05 18:36 | disposition home or self-care (01) ==
PROVIDERS: Physician Assistant; Emergency Provider Emergency Medicine Emergency Medical Services
DX: R10.9 Unspecified abdominal pain (principal); K57.90 Diverticulosis of intestine, part unspecified, without perforation or abscess without bleeding; E11.9 Type 2 diabetes mellitus without complications; I10 Essential (primary) hypertension; Z79.899 Other long term (current) drug therapy; Z79.84 Long term (current) use of oral hypoglycemic drugs; Z79.4 Long term (current) use of insulin; Z85.43 Personal history of malignant neoplasm of ovary; Z85.41 Personal history of malignant neoplasm of cervix uteri; Z87.442 Personal history of urinary calculi; Z87.19 Personal history of other diseases of the digestive system; Z87.09 Personal history of other diseases of the respiratory system; Z86.79 Personal history of other diseases of the circulatory system; Z86.69 Personal history of other diseases of the nervous system and sense organs; Z90.89 Acquired absence of other organs; Z90.49 Acquired absence of other specified parts of digestive tract; Z90.721 Acquired absence of ovaries, unilateral; Z98.890 Other specified postprocedural states
CPT/HCPCS: 36415; 74177; 80053; 81003; 83690; 84703; 85025; 99285; Q9967

== ENCOUNTER 2023-07-28 11:28 | Emergency (ER) | payer OTHER, SELFPAY ==
[2023-07-28 11:52] VITALS: BP 127/79; PULSE 60; TEMP 36.7; O2SAT 100; BMI 28.6
--- OUTSIDE RECORDS SUMMARY | 2023-07-28 11:53 | XMS_ITS | CCD ---
Author Organization [facility] Informat ion Partnership [facility] Care Team Providers Care Insurance Coordinator Name Role Phone Rice, Vincenzo W Unavailable Unavailable Rice, Vincenzo W Unavailable Unavailable Rice, Vincenzo W Unavailable Unavailable NONE, XXXX Unavailable Unavailable Rice, Vincenzo W Unavailable Unavailable Rice, Vincenzo W Unavailable Unavailable Rice, Vincenzo W Unavailable Unavailable NONE, XXXX Unavailable Unavailable [facility] Primary Care Provider PEDRO HOROWITZ Referring Unavailabl e [place], [facility] Primary Care Unavailable PEDRO HOROWITZ Referring Unavailabl e [place], [facility] Primary Care Unavailable [facility], DR BOB Primary Care Unavailable TRANG DORANTES Admitting Unavailable TRANG DORANTES Attending Unavailable TRANG DORANTES Consulting Unavailable ENA, DR VAIL Admitting Unavailable ENA, DR VAIL Attending Unavailable [facility] [place] Primary Care Unavailable SAMMY, DR JORDAN Mary Consulting Unavailable ZIEBER, DR CASSY Cedeno Consulting Unavailable SERGO ENCARNACION Consulting Unavailable [facility] Primary Care Unavailable DEE, DR KEVIN Valdes Admitting Unavailabl e REINECK, DR KEVIN Valdes Attending Unavailabl e REINECK, DR KEVIN Valdes Consulting Unavailabl e [place], [facility] Primary Care Unavailable REINECK, DR KEVIN Valdes Admitting Unavailabl e REINECK, DR KEVIN Valdes Attending Unavailabl e DEE, DR KEVIN Valdes Consulting Unavailabl e BLANCA GRANT Attending Unavailable [facility] [phone] SHAINA JANE Referring Unavailable [facility] Primary Care Unavailable ASSI, ZAKARIA I Admitting Unavailable ASSI, ZAKARIA I Attending Unavailable DONNA MONTANO Attending Unavailable SHAINA JANE [facility]ending [facility] Primary Care Unavailable [facility] Primary Care Unavailable SRIDHAR FORMAN Referring Unavailable [facility] Primary Care Unavailable [facility] Primary Care Unavailable CHEN GUZMÁN Attending Unavailable [facility] Primary Care Unavailable CHEN BOCANEGRA Attending Unavailable CHEN BOCANEGRA Attending Unavailable CHEN BOCANEGRA Referring Unavailable [facility] Primary Care Unavailable DIVYA GALLOWAY Attending Unavailable [facility] Referring Unavailable [facility] Primary Care Unavailable Joseph Rodriguez Admitting Unavailab Joseph Wyatt Attending Unavailab Elvira Jamison Primary Care Unavailable Allergies Allergy Classification Reported Allergen(s) Allergy Type Date of Onset Reaction(s) Facility (10 sources) albuterol; 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: [albuterol] Drug Allergy 5 Headaches, Headache [facility] Repository (10 sources) amoxicillin; 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: [amoxicillin] Drug Allergy 7 Swelling [facility] Repository (9 sources) ibuprofen; 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: [ibuprofen] Drug Allergy 7 Other (See Comments) [facility] Repository (10 sources) loratadine; 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: [loratadine] Drug Allergy 7 Swelling [facility] Repository (1 source) [place]; 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: [Strawberries] Food allergy (disorder) [facility] Repository (8 sources) empagliflozin; 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: [EMPAGLIFLOZIN] Drug Allergy 0 Nausea And Vomiting [employer] Phone: (7 sources) strawberry allergenic extract; 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: [STRAWBERRY] Drug Allergy 7 Hives [facility] [employer] Phone: (8 sources) Amoxicillin-Pot Clavulanate; 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: [AMOXICILLIN-POT CLAVULANATE] Propensity to adverse reactions to drug 7 Swelling [employer] Phone: (1 source) alogliptin Drug Allergy [facility] Repository (1 source) Amoxicillin / Clavulanate Drug Allergy 5 [facility] Repository (1 source) empagliflozin Drug Allergy [facility] Rep[facility] (1 source) Ibuprofen Drug Allergy [facility] Rep[facility] (1 source) Penicillins Drug allergy (disorder) [facility] Rep[facility] (1 source) strawberry allergenic extract Drug Allergy 5 [facility] Repository (7 sources) alogliptin; 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: [ALOGLIPTIN BENZOATE] Drug Allergy 2 Anaphylaxis [facility] Repository (7 sources) POTASSIUM CLAVULANATE; 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: [POTASSIUM CLAVULANATE] Propensity to adverse reactions to drug (disorder) 2 Anaphylaxis [facility] Repository (1 source) STRAWBERRY FLAVOR; 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: [STRAWBERRY FLAVOR] Propensity to adverse reactions to drug (disorder) 2 [facility] Repository (6 sources) Amoxicillin; 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: [AMOXICILLIN TRIHYDRATE] Drug Allergy [facility] Penicillins Drug allergy (disorder) [address] [facility] Repository Medications Current Medications Medication Drug [...] if needed for pain 0 07/15/2021 Active albuterol 0.83 mg/ml inhalation solution (8 sources) beta2-Adrenergic Agonist Start: 06-23-2020 albuterol (PROVENTIL,VENTOLI N) 2.5 mg /3 mL (0.083 %) nebulizer solution Indications: Moderate persistent asthma without complication inhale contents of 1 vial ( 3 milliliters ) in nebulizer by mouth and INTO THE LUNGS four times a day if needed for wheezing 360 mL 1 06/23/2020 Active Start: 09-06-2019 take 2 puff(s) by in halation every six hours as needed for wheezing albuterol (PROVENTIL HFA;VENTOLIN HFA) 90 mcg/actuation inhaler Indications: Moderate persistent asthma without complication Inhale 2 puffs every 6 (six) hours as needed for wheezing. 18 g 11 09/06/2019 Active ALPRAZolam 0.25 mg oral tablet (4 sources) Benzodiazepine Start: 09-15-2022 take 1 tablet by mouth once daily for anxiety ALPRAZolam (XANAX) 0.25 mg tablet Indications: Anxiety disorder due to medical condition take 1 tablet by mouth nightly if needed for anxiety 30 tablet 2 09/15/2022 Active amitriptyline hydrochloride 25 mg oral tablet (4 sources) Tricyclic Antidepressant take 3 tablets by mouth once daily amitriptyline (ELAVIL) 25 mg tablet Indications: migraine prevention Take 3 tablets (75 mg total) by mouth nightly Indications: migraine prevention. Takes three tablets 0 Active 60 actuat budesonide 0.16 mg/actuat / formoterol fumarate 0.0045 mg/actuat metered dose inhaler (5 sources) Corticosteroid, beta2-Adrenergic Agonist Start: 07-20-2021 take 2 puff(s) by mouth twice daily SYMBICORT 160-4.5 MCG/ACT AERO inhale 2 puffs by mouth and INTO THE LUNGS twice a day 0 07/20/2021 Active Start: 03-19-2021 take 2 puff(s) by in halation twice daily budesonide-formoteroL (SYMBICORT) 160-4.5 mcg/actuation inhaler Indications: Moderate persistent asthma without complication Inhale 2 puffs 2 (two) times a day. 10.2 g 10 03/19/2021 Active cyclobenzaprine hydrochloride 10 mg oral tablet (4 sources) Muscle Relaxant Start: 04-21-2020 cyclobenzaprine (FLEXERIL) 10 mg tablet dicyclomine hydrochloride 20 mg oral tablet (4 sources) Anticholinergic Start: 04-21-2020 dicyclomine (BENTYL) 20 mg tablet docusate sodium 100 mg oral capsule (4 sources) Start: 04-07-2022 take 1 capsule by mouth in the morning docusate sodium (COLACE) 100 mg capsule Indications: Constipation, unspecified constipation type Take 1 capsule (100 mg total) by mouth in the morning. 30 capsule 11 04/07/2022 Active ergocalciferol 1.25 mg oral capsule (5 sources) Provitamin D2 Compound Start: 05-14-2020 take 1 capsule by mouth every week VITAMIN D2 1,250 mcg (50,000 unit) capsule Take 1 capsule (50,000 Units total) by mouth once a week. 0 05/14/2020 Active glipiZIDE 5 mg oral tablet (4 sources) Sulfonylurea glipiZIDE (GLUCOTROL) 5 mg tablet Indications: type 2 diabetes mellitus Take 1 tablet (5 mg total) by mouth in the morning and 1 tablet (5 mg total) in the evening. Take before meals. Indications: type 2 diabetes mellitus. 0 Active 3 ml insulin aspart, human 100 unt/ml pen injector (4 sources) Insulin Analog Start: 03-26-2020 inject 1 [IU] by subcutaneous injection before mealtime insulin aspart U-100 (NovoLOG) 100 unit/mL (3 mL) insulin pen INJECT 8-10-12 UNITS SUBCUTANEOUSLY BEFORE MEALS PLUS ISS #2 (EXPECT UP TO 40 UNITS DAILY) 0 03/26/2020 Active insulin glargine,hum.rec.an log (LANTUS U-100 INSULIN SUBQ) (4 sources) inject 35 [IU] by subcutaneous injection once daily at bedtime insulin glargine,hum.rec.a nlog (LANTUS U-100 INSULIN SUBQ) Inject 35 Units under the skin once daily at bedtime. 0 Active 3 ml insulin lispro 100 unt/ml pen injector (1 source) Insulin Analog Start: 07-20-2021 inject 1 [IU] by subcutaneous injection before mealtime HUMALOG KWIKPEN 100 UNIT/ML SOPN inject 8-10-12 UNITS UNDER THE SKIN BEFORE MEALS PLUS INSULIN SLI... (REFER TO PRESCRIPTION NOTES). 0 07/20/2021 Active lidocaine 0.05 mg/mg medicated patch (4 sources) Antiarrhythmic, Amide Local Anesthetic Start: 11-26-2021 apply 1 dose transdermal route every twelve hours in the morning lidocaine (LIDODERM) 5 % Place 1 patch on the skin in the morning. Remove & Discard patch within 12 hours or as directed by MD. 30 patch 0 11/26/2021 Active lisinopril 10 mg oral tablet (4 sources) Angiotensin Converting Enzyme Inhibitor Start: 11-03-2017 take 1 tablet by mouth in the morning lisinopril (PRINIVIL,ZESTRIL) 10 mg tablet Indications: hypertension Take 1 tablet (10 mg total) by mouth in the morning. Indications: high blood pressure. 0 11/03/2017 Active loperamide hydrochloride 2 mg oral capsule (4 sources) Opioid Agonist Start: 09-18-2021 take 1 capsule by mouth four times daily for diarrhea loperamide (IMODIUM) 2 mg capsule Indications: Diarrhea, unspecified type take 1 capsule by mouth four times a day if needed for diarrhea 30 capsule 0 09/18/2021 Active meclizine hydrochloride 25 mg chewable tablet (4 sources) Antiemetic meclizine (ANTIVERT) 25 mg tablet Chew 0.5 tablets (12.5 mg total) and swallow 3 (three) times a day as needed for dizziness. 0 Active meloxicam 15 mg oral tablet (4 sources) Nonsteroidal Anti-inflammatory Drug Start: 05-08-2020 take 1 tablet by mouth in the morning meloxicam (MOBIC) 15 mg tablet Take 1 tablet (15 mg total) by mouth in the morning. 0 05/08/2020 Active metFORMIN hydrochloride 500 mg oral tablet (5 sources) Biguanide Start: 07-15-2021 take 1 tablet by mouth twice daily at mealtime metFORMIN (GLUCOPHAGE) 500 MG tablet take 1 tablet by mouth twice a day with meals 0 07/15/2021 Active metFORMIN (GLUCO PHAGE) 500 mg tablet Indications: type 2 diabetes mellitus Take 2 tablets (1,000 mg total) by mouth daily with breakfast Indications: type 2 diabetes mellitus. 0 Active naloxone hydrochloride 40 mg/ml nasal spray (4 sources) Opioid Antagonist Start: 11-25-2021 naloxone (NARCAN) 4 mg/actuation spray,non-aerosol nasal spray Administer 1 spray (4 mg total) into alternating nostrils as needed for opioid reversal. 1 each 0 11/25/2021 Active omeprazole 40 mg delayed release oral capsule (4 sources) Proton Pump Inhibitor Start: 09-17-2021 take 1 capsule by mouth once daily omeprazole (PriLOSEC) 40 mg capsule take 1 capsule by mouth once daily 30 capsule 10 09/17/2021 Active phenazopyridine hydrochloride 200 mg oral tablet (4 sources) take 1 tablet by mouth three times daily phenazopyridine (PYRIDIUM) 200 mg tablet Take 1 tablet (200 mg total) by mouth 3 (three) times a day. 0 Active polyethylene glycol 3350 11792 mg powder for oral solution (4 sources) Osmotic Laxative Start: 10-24-2019 polyethylene glycol (GLYCOLAX) 17 gram/dose powder Indications: Constipation in female , Endometrial cancer determined by uterine biopsy ([facility]) Take 17 g by mouth 2 (two) times a day. 527 g 3 10/24/2019 Active primidone 50 mg oral tablet (4 sources) Anti-epileptic Agent Start: 11-28-2016 take 1 tablet by mouth in the morning, then take 0.5-1 tablets by mouth at bedtime primidone (MYSOLINE) 50 mg tablet Indications: focal epilepsy Take 1 tablet (50 mg total) by mouth in the morning. Indications: a type of seizure called a focal seizure. Take 1/2 to 1 tab by mouth at bedtime. 0 11/28/2016 Active prochlorperazine 10 mg oral tablet (4 sources) Phenothiazine Start: 07-01-2022 take 1 tablet by mouth every six hours for nausea prochlorperazine (COMPAZINE) 10 mg tablet Indications: Nausea take 1 tablet by mouth every 6 hours if needed for nausea or vomiting 60 tablet 2 07/01/2022 Active simvastatin 40 mg oral tablet (4 sources) HMG-CoA Reductase Inhibitor take 1 tablet by mouth once daily simvastatin (ZOCOR) 40 mg tablet Indications: hypercholesterolemia Take 1 tablet (40 mg total) by mouth nightly Indications: high cholesterol. 0 Active spironolactone 50 mg oral tablet (4 sources) Aldosterone Antagonist Start: 11-24-2020 take 1 tablet by mouth once daily spironolactone (ALDACTONE) 50 mg tablet take 1 tablet by mouth once daily 90 tablet 0 11/24/2020 Active Problems Active Problems Problem Classification Problem Date Documented Da te Episodic/Chronic Asthma (4 sources) Uncomplicated moderate persistent asthma; 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: [Moderate persistent asthma, uncomplicated] Onset: 0 10-04-2019 Chronic Calculus of urinary tract (1 source) Personal history of urinary calculi; 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: [PERSONAL HISTORY OF URINARY CALCULI] Onset: 2 Episodic Cancer of uterus (12 sources) Malignant neoplasm of endometrium of corpus uteri ; 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: [Malignant neoplasm of endometrium] Onset: 0 Resolved: 0 11-22-2021 Chronic Chronic kidney disease (4 sources) Chronic kidney disease; 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: [Chronic kidney disease, unspecified] 10-04-2019 Chronic Chronic obstructive pulmonary disease and bronchiectasis (4 sources) Chronic obstructive lung disease; 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: [Chronic obstructive pulmonary disease, unspecified] Resolved: 0 11-01-2019 Chronic Coagulation and hemorrhagic disorders (8 sources) Platelet count below reference range; 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: [Thrombocytopenia, unspecified] Onset: 7 Chronic Diabetes mellitus with complications (2 sources) Type 2 diabetes mellitus with hyperglycemia; 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: [Type 2 diabetes mellitus with other circulatory complications] Onset: 4 Chronic Diabetes mellitus without complication (5 sources) Type 2 diabetes mellitus without complications; 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: [Type 2 diabetes mellitus] Onset: 2 10-04-2019 Chronic Disorders of lipid metabolism (5 sources) Hyperlipidemia; 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: [Hyperlipidemia, unspecified] Onset: 4 10-04-2019 Chronic Esophageal disorders (4 sources) Gastroesophageal reflux disease without esophagitis; 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: [Gastro-esophageal reflux disease without esophagitis] Onset: 9 10-04-2019 Chronic Essential hypertension (4 sources) Hypertensive disorder; 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: [Essential (primary) hypertension] 10-04-2019 Chronic Fluid and electrolyte disorders (1 source) Hypokalemia; 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: [Hypokalemia] Onset: 4 Episodic Headache; including migraine (4 sources) Headache; including migraine; 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: [HEADACHE UNSPECIFIED] Onset: 2 Mood disorders (1 source) Major depressive disorder, single episode, unspecified; 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: [MACKENZIE DEPRESS D/O SINGLE EPIS UNS] Onset: 2 Chronic Nonspecific chest pain (2 sources) Chest pain, unspecified; 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: [Chest pain] Onset: 4 Episodic Nutritional deficiencies (1 source) Vitamin D deficiency, unspecified; 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: [Vitamin D deficiency, unspecified] Onset: 4 Chronic Osteoarthritis (1 source) Unilateral primary osteoarthritis, right knee; 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: [UNI PRIM OSTEOARTHRITIS RT KNEE] Onset: 2 Chronic Other aftercare (1 source) 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; 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: [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] Onset: 2 Episodic Other aftercare (1 source) terminal gauger (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) use of oral hypoglycemic drugs; 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: [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 USE ORAL HYPOGLYCEMIC DX] Onset: 2 Episodic Other gastrointestinal disorders (1 source) Splenomegaly; 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: [Splenomegaly, not elsewhere classified] Episodic Other injuries and conditions due to external causes (1 source) Personal history of other (healed) physical injury and trauma; 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: [PERS HX OTH HEALED PHYS INJ AND TRAUMA] Onset: 2 Episodic Other liver diseases (6 sources) Cirrhosis of liver; 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: [Other cirrhosis of liver] Onset: 2 03-19-2021 Chronic Other liver diseases (1 source) Other cirrhosis of liver; 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: [Other cirrhosis of liver] Onset: 2 Chronic Other liver diseases (1 source) Large liver; 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: [Hepatomegaly, not elsewhere classified] Episodic Other lower respiratory disease (1 source) Shortness of breath Onset: 4 Episodic Other nervous system disorders (1 source) Other acute postprocedural pain; 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: [Other acute postprocedural pain] Onset: 4 Episodic Other non-traumatic joint disorders (1 source) Shoulder pain Onset: 4 Episodic Other nutritional; endocrine; and metabolic disorders (4 sources) Obese class I; 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: [Obesity, unspecified] Onset: 0 11-22-2021 Chronic Other screening for suspected conditions (not mental disorders or infectious disease) (9 sources) Patient encounter status; 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: [Encounter for screening mammogram for malignant neoplasm of breast] Onset: 7 Resolved: 1 12-26-2019 Episodic Residual codes; unclassified (4 sources) Obstructive sleep apnea syndrome; 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: [Obstructive sleep apnea (adult) (pediatric)] Onset: 0 10-04-2019 Chronic Residual codes; unclassified (4 sources) Insomnia; 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: [Other insomnia] Onset: 3 03-11-2022 Chronic Spondylosis; intervertebral disc disorders; other back problems (12 sources) Lumbar spondylosis; 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: [Spondylosis without myelopathy or radiculopathy, lumbar region] Onset: 7 11-22-2021 Chronic Unclassified (2 sources) Consult; 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: [Consult] Onset: 2 Unclassified (1 source) High Blood Sugar - No Symptoms Onset: 4 Unclassified (1 source) Post-op Problem: Shoulder Pain Onset: 4 Past or Other Problems Problem Classification Problem Date Documented Da te Episodic/Chronic Diabetes mellitus without complication (5 sources) Hyperglycemia; 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: [Hyperglycemia, unspecified] Onset: 10-05-2019 10-05-2019 Episodic Diseases of mouth; excluding dental (4 sources) Xerostomia; 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: [Dry mouth, unspecified] Onset: 06-05-2018 Resolved: 12-26-2019 12-26-2019 Episodic E Codes: Fall (8 sources) Accidental fall ; 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: [Fall (on) (from) other stairs and steps, initial encounter] Onset: 04-03-2020 04-03-2020 Episodic Genitourinary symptoms and ill-defined conditions (7 sources) Dysuria; 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: [Dysuria] Onset: 12-26-2019 Episodic Headache; including migraine (4 sources) Headache; 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: [Headache] Onset: 04-24-2019 04-24-2019 Episodic Lymphadenitis (4 sources) Cervical lymphadenopathy; 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: [Localized enlarged lymph nodes] Onset: 09-13-2017 09-13-2017 Episodic Mood disorders (4 sources) Mood disorders Onset: 03-07-2022 03-07-2022 Other aftercare (2 sources) FPC (current) use of insulin; 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: [CARE HOME CURRENT USE OF INSULIN] Onset: 11-02-2021 Episodic Other gastrointestinal disorders (4 sources) Dysphagia; 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: [Other dysphagia] Onset: 09-13-2017 Resolved: 12-26-2019 12-26-2019 Episodic Other injuries and conditions due to external causes (1 source) History of falling; 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: [HISTORY OF FALLING] Onset: 07-16-2021 Episodic Other injuries and conditions due to external causes (4 sources) Injury of nose; 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: [Unspecified injury of nose, initial encounter] Onset: 04-03-2020 04-03-2020 Episodic Other injuries and conditions due to external causes (4 sources) Injury of left foot; 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: [Unspecified injury of left foot, initial encounter] Onset: 04-03-2020 04-03-2020 Episodic Other injuries and conditions due to external causes (4 sources) Injury of right foot; 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: [Unspecified injury of right foot, initial encounter] Onset: 04-03-2020 04-03-2020 Episodic Other lower respiratory disease (4 sources) Hemoptysis; 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: [Hemoptysis] Onset: 04-24-2019 Resolved: 12-26-2019 12-26-2019 Episodic Other nervous system disorders (1 source) Trigeminal neuralgia; 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: [TRIGEMINAL NEURALGIA] Onset: 03-06-2021 Episodic Other non-traumatic joint disorders (4 sources) Pain in right knee; 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: [PAIN IN RIGHT KNEE] Onset: 07-15-2021 Episodic Other non-traumatic joint disorders (1 source) Pain in right ankle and joints of right foot; 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: [PAIN IN RIGHT ANKLE] Onset: 07-16-2021 Episodic Other upper respiratory disease (4 sources) Pain in throat; 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: [Pain in throat] Onset: 09-13-2017 Resolved: 12-26-2019 12-26-2019 Episodic Other upper respiratory disease (4 sources) Hoarse; 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: [Dysphonia] Onset: 09-13-2017 Resolved: 12-26-2019 12-26-2019 Episodic Other upper respiratory infections (4 sources) Pharyngitis; 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: [Acute pharyngitis, unspecified] Onset: 10-26-2018 Resolved: 11-02-2018 11-02-2018 Episodic Pathological fracture (12 sources) 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; 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: [Other osteoporosis with current pathological fracture, vertebra(e), initial encounter for fracture] Onset: 11-22-2021 11-22-2021 Episodic Spondylosis; intervertebral disc disorders; other back problems (4 sources) Spinal stenosis in cervical region; 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: [Spinal stenosis, cervical region] Onset: 03-16-2017 11-22-2021 Episodic Superficial injury; contusion (4 sources) Contusion of orbital tissue of left eye; 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: [Contusion of eyeball and orbital tissues, left eye, sequela] Onset: 04-07-2020 04-07-2020 Episodic Urinary tract infections (5 sources) Cystitis, unspecified without hematuria; 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: [Acute cystitis] Onset: 12-26-2019 12-26-2019 Episodic Results Test Name Value Interpretation Reference Range Facility BASIC METABOLIC PANLon 07-12 Anion gap [Moles/Vol] 13 mmol/L Normal -15 [facility] Comment on above: Performed By: #### R BRIANNEAL, 88359-7, 27114-0 #### [facility] ([id number]) [address] [place] [address] #### 1986-9 #### [facility] ([id number]) [address] [place] [id number] Calcium [Mass/Vol] 9.4 mg/dL Normal 8.5-10.5 [facility] Comment on above: Performed By: #### R LY, [id number], 75254-6 #### [facility] ([id number]) [address], [address] [place] [address] #### 1986-9 #### [facility] ([id number]) [address] [place] [id number] Chloride [Moles/Vol] 97 mmol/L Low 98-109 [facility] Comment on above: Performed By: #### R LY, 74974-7, 67088-4 #### [facility] ([id number]) [address], [address] [place] [address] #### 1986-9 #### [facility] ([id number]) [address] [place] [id number] CO2 [Moles/Vol] 21 mmol/L Low 22-32 [facility] Comment on above: Performed By: #### R ENAL, 81740-6, 78815-2 #### [facility] ([id number]) [address], [address] [place] [address] #### 1985-9 #### [facility] ([id number]) [address] [place] [id number] Creatinine [Mass/Vol] 0.94 mg/dL Normal 0.40-1.00 [facility] Comment on above: Result Comment: METH OD TRACEABLE TO IDMS STANDARD Performed By: #### Wilian MODI, [id number], 99562-6 #### [facility] ([id number]) [address], [address] [place] [address] #### 1985-9 #### [facility] ([id number]) [address] [place] [id number] GFR/1.73 sq M.predicted among non-blacks MDRD (S/P/Bld) [Vol rate/Area] 71 mL/min/{1.73_m2} Normal >59 [place] [facility] Comment on above: Result Comment: Reported eGFR is based on the CKD-EPI 2020 equation that does not use a race coefficient. Performed By: #### Wilian MODI, 33026-6, 93146-1 #### [facility] ([id number]) [address] [facility], [address] [place] [address] #### 1985-9 #### [facility] ([id number]) [address] [place] [address] 00531 Glucose [Mass/Vol] 516 mg/dL Critically high 65-99 [facility] Comment on above: Performed By: #### Wilian MODI, 66087-9, 04014-4 #### [facility] ([id number]) [address] [facility], [address] [place] [address] #### 1985-9 #### [facility] ([id number]) [address] [place] [address] 82361 Potassium [Moles/Vol] 4.2 mmol/L Normal 3.5-5.0 [facility] Comment on above: Performed By: #### Wilian MODI, 54937-8, 89098-1 #### [facility] ([id number]) [address] [facility], [address] [place] [address] #### 1985-9 #### [facility] ([id number]) [address] [place] [address] 63592 Sodium [Moles/Vol] 131 mmol/L Low 134-146 [facility] Comment on above: Performed By: #### Wilian MODI, 09643-5, 93094-7 #### [facility] ([id number]) [address], [address] [place] [address] #### 1986-9 #### [facility] ([id number]) [address] [place] [address] 96921 Urea nitrogen [Mass/Vol] 10 mg/dL Normal 5-23 [facility] Comment on above: Performed By: #### Wilian MODI, 83926-7, 65867-8 #### [facility] ([id number]) [address] [facility], [address] [place] [address] #### 1985-9 #### [facility] ([id number]) [address] [place] [address] 15987 Beta hydroxybutyrate [Moles/ Vol]on 07-13-2023 BetaHydroxybutyrate 0.66 mmol/L High 0.02-0.27 [facility] Comment on above: Performed By: #### Wilian MODI, 50797-9, 33819-0 #### [facility] ([id number]) [address] [facility], [address] [place] [address] #### 1985-9 #### [facility] ([id number]) [address] [place] [address] 65184 CBC AND AUTO DIFFon 07-13-19 24 ABSOLUTE BASOPHIL 0.0 X10E9/L Normal 0.0-0.2 [facility] Comment on above: Performed By: #### Wilian MODI, 73293-8, 76390-3 #### [facility] ([id number]) [address], [address] [place] [address] #### 9 #### [facility] ([id number]) [address] [place] [address] 48650 ABSOLUTE NEUTROPHIL 3.6 X10E9/L Normal 1.5-6.6 [facility] Comment on above: Performed By: #### Wilian MODI, 21449-2, 82777-3 #### [facility] ([id number]) [address] [facility], [address] [place] [address] #### 9 #### [facility] ([id number]) [address] [place] [address] 11639 Basophils/100 WBC (Bld) 0.4 % Normal [facility] Comment on above: Performed By: #### Wilian MODI, 99718-0, 03960-0 #### [facility] ([id number]) [address], [address] [place] [address] #### 9 #### [facility] ([id number]) [address] [place] [address] 27393 Eosinophils (Bld) [#/Vol] 0.0 10*3/uL Normal 0.0-0.4 [facility] Comment on above: Performed By: #### Wilian MODI, 83821-6, 23596-0 #### [facility] ([id number]) [address], [address] [place] [address] #### 9 #### [facility] ([id number]) [address] [place] [address] 14449 Eosinophils/100 WBC (Bld) 0.0 % Normal [facility] Comment on above: Performed By: #### R LY, 80377-2, 88237-9 #### [facility] ([id number]) [address] [facility], [address] [place] [address] #### 1985-10 #### [facility] ([id number]) [address] [place] [address] 54576 Erythrocyte distribution width (RBC) [Ratio] 13.9 % Normal 11.5-15.0 [facility] Comment on above: Performed By: #### Wilian MODI, 74010-0, 61183-0 #### [facility] ([id number]) [facility] [facility], [address] [place] [address] #### 1986-9 #### [facility] ([id number]) [address] [place] [address] 11049 Hematocrit (Bld) [Volume fraction] 44.0 % Normal 35-47 [facility] Comment on above: Performed By: #### Wilian MODI, 54382-5, 30482-5 #### [facility] ([id number]) [facility], [address] [place] [address] #### 1985-9 #### [facility] ([id number]) [address] [place] [address] 06869 Hemoglobin (Bld) [Mass/Vol] 15.2 g/dL Normal 11.7-15.5 [facility] Comment on above: Performed By: #### Wilian MODI, 34050-4, 76360-2 #### [facility] ([id number]) [facility], [address] [place] [address] #### 1985-9 #### [facility] ([id number]) [address] [place] [address] 19315 Lymphocytes (Bld) [#/Vol] 2.2 10*3/uL Normal 1.0-3.5 [facility] Comment on above: Performed By: #### Wilian MODI, 38657-1, 46068-0 #### [facility] ([id number]) [facility] [facility], [address] [place] [address] #### 9 #### [facility] ([id number]) [address] [place] [address] 34987 Lymphocytes/100 WBC (Bld) 36.2 % Normal [facility] Comment on above: Performed By: #### Wilian MODI, 76147-8, 62995-0 #### [facility] ([id number]) [address] [facility], [address] [place] [address] #### 9 #### [facility] ([id number]) [address] [place] [address] 19602 MCH (RBC) [Entitic mass] 31.1 pg Normal 27-34 [facility] Comment on above: Performed By: #### Wilian MODI, 81070-8, 98163-9 #### [facility] ([id number]) [address] [facility], [address] [place] [address] #### 9 #### [facility] ([id number]) [address] [place] [address] 85713 MCHC (RBC) [Mass/Vol] 34.5 g/dL Normal 32-36 [facility] Comment on above: Performed By: #### Wilian MODI, 19888-8, 25606-9 #### [facility] ([id number]) [address] [facility], [address] [place] [address] #### 9 #### [facility] ([id number]) [address] [place] [address] 80833 MCV (RBC) [Entitic vol] 90 fL Normal 80-100 [facility] Comment on above: Performed By: #### Wilian MODI, 72792-5, 78000-3 #### [facility] ([id number]) [address] [facility], [address] [place] [address] #### 9 #### [facility] ([id number]) [address] [place] [address] 95829 Monocytes (Bld) [#/Vol] 0.2 10*3/uL Normal 0-0.9 [facility] Comment on above: Performed By: #### Wilian MODI, 49387-7, 25992-0 #### [facility] ([id number]) [address], [address] [place] [address] #### 1985-9 #### [facility] ([id number]) [address] [place] [address] 13066 Monocytes/100 WBC (Bld) 3.7 % Normal [facility] Comment on above: Performed By: #### Wilian MODI, 50542-5, 57927-9 #### [facility] ([id number]) [address], [address] [place] [address] #### 1985-9 #### [facility] ([id number]) [address] [place] [address] 28032 Neutrophils/100 WBC (Bld) 59.7 % Normal [facility] Comment on above: Performed By: #### Wilian MODI, 34548-7, 39738-0 #### [facility] ([id number]) [address], [address] [place] [address] #### 1985-9 #### [facility] ([id number]) [address] [place] [address] 50358 Platelet mean volume (Bld) [Entitic vol] 10.1 fL Normal 7-12 [facility] Comment on above: Performed By: #### Wilian MODI, 88209-2, 20919-3 #### [facility] ([id number]) [address], [address] [place] [address] #### 1985- #### [facility] ([id number]) [address] [place] [address] 77492 Platelets (Bld) [#/Vol] 133 10*3/uL Low 150-450 [facility] Comment on above: Performed By: #### Wilian MODI, 50649-1, 67770-7 #### [facility] ([id number]) [address], [address] [place] [address] #### 1986-9 #### [facility] ([id number]) [address] [place] [address] 91824 RBC COUNT 4.87 X10E12/L Normal 3.80-5.20 [facility] Comment on above: Performed By: #### Wilian MODI, 39633-5, 08598-9 #### [facility] ([id number]) [address], [address] [place] [address] #### 1986-9 #### [facility] ([id number]) [address] [place] [address] 70543 WBC (Bld) [#/Vol] 6.1 10*3/uL Normal 4.0-11.0 [facility] Comment on above: Performed By: #### Wilian MODI, 64286-8, 13359-3 #### [facility] ([id number]) [address], [address] [place] [address] #### 1986-9 #### [facility] ([id number]) [address] [place] [address] 47650 Glucose Glucometer (BldC) [M ass/Vol]on 07-13-2023 Glucose [Mass/Vol] 400 mg/dL Critically high 65-99 [facility] Glucose [Mass/Vol] 421 mg/dL Critically high 65-99 [facility] BEDSIDE GLUCOSE LAB >500 Critically high 65-99 [facility] Comment on above: Result Comment: SEE LAB RESULTS FOR CONFIRMATION Glucose [Mass/Vol] 423 mg/dL Critically high 65-99 [facility] Troponin I.cardiac High sens itivity method [Mass/Vol]on 07-13-2023 1 HOUR TROP I, HIGH SENSITIVITY 3 ng/L Normal <16 [facility] Comment on above: Performed By: #### Wilian MODI, 29515-5, 29052-3 #### [facility] ([id number]) [address], [address] [place] [address] #### 1986-9 #### [facility] ([id number]) [address] [place] [address] 77694 TROPONIN I, HIGH SENSITIVITY 3 ng/L Normal <16 [facility] Comment on above: Performed By: #### Wilian MODI, 04694-9, 85359-7 #### [facility] ([id number]) [address] [facility], [address] [place] [address] #### 1985-9 #### [facility] ([id number]) [address] [place] [address] 65152 VENOUS BLOOD GASon 4 YUDITH'S TEST Normal [facility] Comment on above: Performed By: #### Wilian MODI, 82553-7, 06470-0 #### [facility] ([id number]) [address] [facility], [address] [place] [address] #### 1985-9 #### [facility] ([id number]) [address] [place] [address] 51489 Base excess Calc (Bld) [Moles/Vol] 0.0 mmol/L Normal 0.0-2.0 [facility] Comment on above: Performed By: #### Wilian MODI, 58909-9, 47304-6 #### [facility] ([id number]) [address], [address] [place] [address] #### 1985- #### [facility] ([id number]) [address] [place] [address] 14148 Body temperature 98.6 [degF] Normal 37.0 [facility] Comment on above: Performed By: #### Wilian MODI, 48744-9, 13168-3 #### [facility] ([id number]) [address], [address] [place] [address] #### 1985-9 #### [facility] ([id number]) [address] [place] [address] 91783 HCO3 (Bld) [Moles/Vol] 24.9 mmol/L High 20.0-24.0 [facility] Comment on above: Performed By: #### Wilian MODI, 64243-7, 01977-3 #### [facility] ([id number]) [address], [address] [place] [address] #### 9 #### [facility] ([id number]) [address] [place] [address] 04461 Oxygen saturation in Blood 47.0 % Low >80.0 [facility] Comment on above: Performed By: #### Wilian MODI, 00322-9, 35827-0 #### [facility] ([id number]) [address], [address] [place] [address] #### 9 #### [facility] ([id number]) [address] [place] [address] 18674 OXYGEN SOURCE [employer] Normal [facility] Comment on above: Performed By: #### Wilian MODI, 66918-0, 82497-7 #### [facility] ([id number]) [address], [address] [place] [address] #### 9 #### [facility] ([id number]) [address] [place] [address] 38322 PCO2, VENOUS 39.8 MMHG Normal 35-50 [facility] Comment on above: Performed By: #### R LY, 53601-9, 88084-7 #### [facility] ([id number]) [address], [address] [place] [address] #### 1985-9 #### [facility] ([id number]) [address] [place] [address] PH, VENOUS 7.404 Normal 7.320-7.420 [facility] Comment on above: Performed By: #### R ENAL, 30916-8, 56138-6 #### [facility] ([id number]) [address], [address] [place] [address] #### 1985-9 #### [facility] ([id number]) [address] [place] [address] 08420 PO2, VENOUS 25 MMHG Low 30-50 [facility] Comment on above: Performed By: #### R LY, 48351-5, 14734-7 #### [facility] ([id number]) [address], [address] [place] [address] #### 9 #### [facility] ([id number]) [address] [place] [address] 28507 SAMPLE SITE N/A Normal [facility] Comment on above: Performed By: #### R ENAL, 75064-8, 31691-4 #### [facility] ([id number]) [address], [address] [place] [address] #### 9 #### [facility] ([id number]) [address] [place] [address] 46116 SAMPLE TYPE VENOUS Normal [facility] Comment on above: Performed By: #### R ENAL, 88496-1, 74965-4 #### [facility] ([id number]) [address] [facility], [address] [place] [address] #### 1986-9 #### [facility] ([id number]) [address] [place] [address] 96539 XR CHEST 1 VWon 07-13-2023 XR CHEST 1 VW XR CHEST 1 VW XR CHEST 1 VW 07/13/2023 1:46 PM INDICATION: chest pain COMPARISON: 10/14/22 TECHNIQUE: AP upright view of the chest FINDINGS: The lungs are clear. There is no pneumothorax. There is no pleural effusion. The cardiomediastinal silhouette is unremarkable. No acute osseous abnormalities. IMPRESSION: No acute cardiopulmonary process. Finalized by Rivera Cordova on 07/13/2023 2:04 PM Normal [facility] BASIC METABOLIC PANLon 06-28 Anion gap [Moles/Vol] 8 mmol/L Normal 5-15 [facility] Comment on above: Performed By: #### Wilian MODI, 79448-1, 95124-2 #### [facility] ([id number]) [address] [place] [address], [address] [place] [address] #### 1986-9 #### [facility] ([id number]) [address] [place] [address] 03007 Calcium [Mass/Vol] 8.1 mg/dL Low 8.5-10.5 [facility] Comment on above: Performed By: #### Wilian MODI, 64436-8, 09276-7 #### [facility] ([id number]) [address] [facility], [address] [place] [address] #### 1986-9 #### [facility] ([id number]) [address] [place] [address] 71509 Chloride [Moles/Vol] 104 mmol/L Normal 98-109 [facility] Comment on above: Performed By: #### Wilian MODI, 70042-4, 85049-7 #### [facility] ([id number]) [address] [facility], [address] [place] [address] #### 1986-9 #### [facility] ([id number]) [address] [place] [address] 36662 CO2 [Moles/Vol] 22 mmol/L Normal 22-32 [facility] Comment on above: Performed By: #### Wilian MODI, 92218-2, 42912-0 #### [facility] ([id number]) [address] [facility], [address] [place] [address] #### 1986-9 #### [facility] ([id number]) [address] [place] [address] 32027 Creatinine [Mass/Vol] 0.69 mg/dL Normal 0.40-1.00 [facility] Comment on above: Result Comment: METH OD TRACEABLE TO IDMS STANDARD Performed By: #### Wilian MODI, 88808-1, 94953-5 #### [facility] ([id number]) [address] [facility], [address] [place] [address] #### 1986-9 #### [facility] ([id number]) [address] [place] [address] 80117 eGFR (CKD-EPI) NON-RACE DEPENDENT >90 Normal >59 [facility] Comment on above: Result Comment: Reported eGFR is based on the CKD-EPI 2020 equation that does not use a race coefficient. Performed By: #### Wilian MODI, 54410-3, 93589-7 #### [facility] ([id number]) [address] [facility], [address] [place] [address] #### 1986-9 #### [facility] ([id number]) [address] [place] [address] 74304 Glucose [Mass/Vol] 321 mg/dL High 65-99 [facility] Comment on above: Performed By: #### Wilian MODI, 59637-3, 25797-6 #### [facility] ([id number]) [address] [facility], [address] [place] [address] #### 1985-9 #### [facility] ([id number]) [address] [place] [address] 86992 Potassium [Moles/Vol] 3.6 mmol/L Normal 3.5-5.0 [facility] Comment on above: Performed By: #### R LY, 81782-2, 95269-7 #### [facility] ([id number]) [address] [facility], [address] [place] [address] #### 1985-9 #### [facility] ([id number]) [address] [place] [address] 70520 Sodium [Moles/Vol] 134 mmol/L Normal 134-146 [facility] Comment on above: Performed By: #### R LY, 58457-5, 87267-5 #### [facility] ([id number]) [address] [facility], [address] [place] [address] #### 1985-9 #### [facility] ([id number]) [address] [place] [address] 06848 Urea nitrogen [Mass/Vol] 11 mg/dL Normal 5-23 [facility] Comment on above: Performed By: #### R LY, 42418-2, 56370-1 #### [facility] ([id number]) [address] [facility], [address] [place] [address] #### 1985-9 #### [facility] ([id number]) [address] [place] [address] 43697 Beta hydroxybutyrate [Moles/ Vol]on 06-29-2023 BetaHydroxybutyrate 1.49 mmol/L High 0.02-0.27 [facility] Comment on above: Performed By: #### Cherie TOLEDO, 6873-4, CBCA #### [facility] ([id number]) [address] [place] [address] 75741 CBC AND AUTO DIFFon 06-29-19 24 ABSOLUTE BASOPHIL 0.0 X10E9/L Normal 0.0-0.2 [facility] Comment on above: Performed By: #### Cherie TOLEDO 73, CBCA #### [facility] ([id number]) [address] [place] [address] 39307 ABSOLUTE NEUTROPHIL 2.1 X10E9/L Normal 1.5-6.6 [facility] Comment on above: Performed By: #### Cherie TOLEDO 6873, CBCA #### [facility] ([id number]) [address] [place] [address] 18040 Basophils/100 WBC (Bld) 0.5 % Normal [facility] Comment on above: Performed By: #### Cherie TOLEDO 73, CBCA #### [facility] ([id number]) [address] [place] [address] 13258 Eosinophils (Bld) [#/Vol] 0.1 10*3/uL Normal 0.0-0.4 [facility] Comment on above: Performed By: #### Cherie TOLEDO 6873, CBCA #### [facility] ([id number]) [address] [place] [address] 62134 Eosinophils/100 WBC (Bld) 1.3 % Normal [facility] Comment on above: Performed By: #### Cherie TOLEDO 6873, CBCA #### [facility] ([id number]) [address] [place] [address] 64423 Erythrocyte distribution width (RBC) [Ratio] 13.3 % Normal 11.5-15.0 [facility] Comment on above: Performed By: #### Cherie TOLEDO 73, CBCA #### [facility] ([id number]) [address] [place] [address] 75272 Hematocrit (Bld) [Volume fraction] 38.2 % Normal 35-47 [facility] Comment on above: Performed By: #### C TRE, 73, CBCA #### [facility] ([id number]) [address] [place] [address] 65219 Hemoglobin (Bld) [Mass/Vol] 13.4 g/dL Normal 11.7-15.5 [facility] Comment on above: Performed By: #### Cherie TOLEDO, 73, CBCA #### [facility] ([id number]) [address] [place] [address] 51743 Lymphocytes (Bld) [#/Vol] 2.2 10*3/uL Normal 1.0-3.5 [facility] Comment on above: Performed By: #### Cherie TOLEDO, 73, CBCA #### [facility] ([id number]) [address] [place] [address] 94883 Lymphocytes/100 WBC (Bld) 47.7 % Normal [facility] Comment on above: Performed By: #### Cherie TOLEDO, 73, CBCA #### [facility] ([id number]) [address] [place] [address] 12554 MCH (RBC) [Entitic mass] 31.3 pg Normal 27-34 [facility] Comment on above: Performed By: #### Cherie TOLEDO, 73, CBCA #### [facility] ([id number]) [address] [place] [address] 38515 MCHC (RBC) [Mass/Vol] 35.1 g/dL Normal 32-36 [facility] Comment on above: Performed By: #### Cehrie TOLEDO, 73, CBCA #### [facility] ([id number]) [address] [place] [address] 71858 MCV (RBC) [Entitic vol] 89 fL Normal 80-100 [facility] Comment on above: Performed By: #### Cherie TOLEDO, 6873-4, CBCA #### [facility] ([id number]) [address] [place] [address] 50253 Monocytes (Bld) [#/Vol] 0.3 10*3/uL Normal 0-0.9 [facility] Comment on above: Performed By: #### Cherie TOLEDO 73, CBCA #### [facility] ([id number]) [address] [place] [address] 98621 Monocytes/100 WBC (Bld) 6.0 % Normal [facility] Comment on above: Performed By: #### Cherie TOLEDO 6873, CBCA #### [facility] ([id number]) [address] [place] [address] 99599 Neutrophils/100 WBC (Bld) 44.5 % Normal [facility] Comment on above: Performed By: #### Cherie TOLEDO 6873, CBCA #### [facility] ([id number]) [address] [place] [address] [id number] Platelet mean volume (Bld) [Entitic vol] 10.6 fL Normal 7-12 [facility] Comment on above: Performed By: #### Cherie TOLEDO 6873-, CBCA #### [facility] ([id number]) [address] [place] [address] [id number] Platelets (Bld) [#/Vol] 89 10*3/uL Low 150-450 [facility] Comment on above: Performed By: #### Cherie TOLEDO 6873-, CBCA #### [facility] ([id number]) [address] [place] [address] [phone] RBC COUNT 4.29 X10E12/L Normal 3.80-5.20 [facility] Comment on above: Performed By: #### C TRE, 6873-4, CBCA #### [facility] ([id number]) [address] [place] [address] 16973 WBC (Bld) [#/Vol] 4.7 10*3/uL Normal 4.0-11.0 [facility] Comment on above: Performed By: #### Cherie TOLEDO 6873-4, CBCA #### [facility] ([id number]) [address] [place] [address] 81940 COMPREHENSIVE METABOLIC PANE [facility] 06-29-2023 Albumin [Mass/Vol] 3.6 g/dL Normal 3.2-5.3 [facility] Comment on above: Performed By: #### Cherie TOLEDO 6873-4, CBCA #### [facility] ([id number]) [address] [place] [address] 36032 ALP [Catalytic activity/Vol] 97 U/L Normal 39-130 [facility] Comment on above: Performed By: #### Cherie TOLEDO 6873-4, CBCA #### [facility] ([id number]) [address] [place] [address] 06196 ALT [Catalytic activity/Vol] 29 U/L Normal 0-31 [facility] Comment on above: Performed By: #### Cherie TOLEDO 6873-4, CBCA #### [facility] ([id number]) [address] [place] [address] 12086 Anion gap [Moles/Vol] 12 mmol/L Normal 5-15 [facility] Comment on above: Performed By: #### Cherie TOLEDO 6873-4, CBCA #### [facility] ([id number]) [address] [place] [address] 48139 AST [Catalytic activity/Vol] 35 U/L Normal 0-41 [facility] Comment on above: Performed By: #### C TRE 6873-4, CBCA #### [facility] ([id number]) [address] [place] [address] 63395 Bilirubin [Mass/Vol] 1.1 mg/dL Normal 0.3-1.2 [facility] Comment on above: Performed By: #### Cherie TOLEDO 6873-, CBCA #### [facility] ([id number]) [address] [place] [address] 97504 Calcium [Mass/Vol] 8.4 mg/dL Low 8.5-10.5 [facility] Comment on above: Performed By: #### Cherie TOLEDO 6873-, CBCA #### [facility] ([id number]) [address] [place] [address] 11557 Chloride [Moles/Vol] 97 mmol/L Low 98-109 [facility] Comment on above: Performed By: #### Cherie TOLEDO 6873-, CBCA #### [facility] ([id number]) [address] [place] [address] 82005 CO2 [Moles/Vol] 24 mmol/L Normal 22-32 [facility] Comment on above: Performed By: #### Cherie TOLEDO 6873-4, CBCA #### [facility] ([id number]) [address] [place] [address] 42739 Creatinine [Mass/Vol] 0.93 mg/dL Normal 0.40-1.00 [facility] Comment on above: Result Comment: METH OD TRACEABLE TO IDMS STANDARD Performed By: #### Cherie TOLEDO 6873-4, CBCA #### [facility] ([id number]) [address] [place] [address] 29299 GFR/1.73 sq M.predicted among non-blacks MDRD (S/P/Bld) [Vol rate/Area] 72 mL/min/{1.73_m2} Normal >59 [facility] Comment on above: Result Comment: Reported eGFR is based on the CKD-EPI 2020 equation that does not use a race coefficient. Performed By: #### Cherie TOLEDO 6873-4, CBCA #### [facility] ([id number]) [address] [place] [address] 03994 Glucose [Mass/Vol] 508 mg/dL Critically high 65-99 [facility] Comment on above: Performed By: #### Cherie TOLEDO 6873-4, CBCA #### [facility] ([id number]) [address] [place] [address] 11265 Potassium [Moles/Vol] 2.7 mmol/L Critically low 3.5-5.0 [facility] Comment on above: Performed By: #### Cherie TOLEDO 6873-4, CBCA #### [facility] ([id number]) [address] [place] [address] 78565 Protein [Mass/Vol] 6.5 g/dL Normal 6.0-8.0 [facility] Comment on above: Performed By: #### Cherie TOLEDO 6873-, CBCA #### [facility] ([id number]) [address] [place] [address] 57318 Sodium [Moles/Vol] 133 mmol/L Low 134-146 [facility] Comment on above: Performed By: #### Cherie TOLEDO 6873-4, CBCA #### [facility] ([id number]) [address] [place] [address] 87178 Urea nitrogen [Mass/Vol] 15 mg/dL Normal 5-23 [facility] Comment on above: Performed By: #### Cherie TOLEDO 6873-4, CBCA #### [facility] ([id number]) [address] [place] [address] 69558 Glucose Glucometer (BldC) [M ass/Vol]on 06-29-2023 Glucose [Mass/Vol] 297 mg/dL High 65-99 [facility] Glucose [Mass/Vol] 386 mg/dL High 65-99 [facility] Glucose [Mass/Vol] 345 mg/dL High 65-99 [facility] BEDSIDE GLUCOSE LAB >500 Critically high -[address] [place] [address] Comment on above: Result Comment: SEE LAB RESULTS FOR CONFIRMATION VENOUS BLOOD GASon YUDITH'S TEST Normal [facility] Comment on above: Performed By: #### V BG #### [facility] ([id number]) [address] [place] [address] 41309 Base excess Calc (Bld) [Moles/Vol] 0.0 mmol/L Normal 0.0-2.0 [facility] Comment on above: Performed By: #### V BG #### [facility] ([id number]) [address] [place] [address] 39681 Body temperature 98.6 [degF] Normal 37.0 [facility] Comment on above: Performed By: #### V BG #### [facility] ([id number]) [address] [place] [address] 35462 HCO3 (Bld) [Moles/Vol] 24.0 mmol/L Normal 20.0-24.0 [facility] Comment on above: Performed By: #### V BG #### [facility] ([id number]) [address] [place] [address] 47726 INSP. O2 CONC. 21 % Normal [facility] Comment on above: Performed By: #### V BG #### [facility] ([id number]) [address] [place] [address] 55776 Oxygen saturation in Blood 91.0 % Normal >80.0 [facility] Comment on above: Performed By: #### V BG #### [facility] ([id number]) [address] [place] [address] [place] [address] OXYGEN SOURCE [employer] Normal [facility] Comment on above: Performed By: #### V BG #### [facility] ([id number]) [address] [place] [address] 43124 PCO2, VENOUS 35.4 MMHG Normal 35-50 [facility] Comment on above: Performed By: #### V BG #### [facility] ([id number]) [address] [place] [address] [place] [address] PH, VENOUS 7.439 High 7.320-7.420 [facility] Comment on above: Performed By: #### V BG #### [facility] ([id number]) [address] [place] [address] 00150 PO2, VENOUS 58 MMHG High 30-50 [facility] Comment on above: Performed By: #### V BG #### [facility] ([id number]) [address] [place] [address] [place] [address] SAMPLE SITE N/A Normal [facility] Comment on above: Performed By: #### V BG #### [facility] ([id number]) [address] [place] [address] [place] [address] SAMPLE TYPE VENOUS Normal [facility] Comment on above: Performed By: #### V BG #### [facility] ([id number]) [address] [place] [address] 66671 IR REMOVE PORTon 06-20-2023 IR REMOVE PORT IR REMOVE PORT CLINICAL INDICATION: Completed therapy, port no longer needed COMPARISON: None TECHNIQUE: Procedure performed by Interventional Radiologist Oscar Chua M.D. Medication: None CONSENT: The reason of the procedure was discussed with the patient. The procedure, expectations, risks, benefits, options and alternatives were discussed. All of the patient?s questions were answered. The patient understands that the results cannot be guaranteed. The procedure is indicated and the risks are acceptable. Consent was obtained. PROCEDURE: Removal of right dual lumen Port-A-Cath. Details of procedure: Patient placed in the supine position on the procedural table. The existing port site was prepped and draped in usual sterile fashion. 1% lidocaine was used as a local anesthetic at the skin and subcutaneous soft tissues surrounding the port. At that time, an approximately 2 cm transverse incision was made over the scar from port placement. Blunt dissection was performed to free the port. The port catheter was removed and manual pressure was held at the venotomy site. The port hub was then dissected free and removed. The pocket was irrigated. The small incision was then closed with 3-0 Vicryl interrupted deep sutures. The skin was closed with 4-0 Vicryl running subcuticular stitch. Dermabond and Steri-Strips were placed. A sterile dressing was applied. The patient tolerated the procedure well and there were no immediate complications. FINDINGS: Successful complete removal of right dual lumen Port-A-Cath. IMPRESSION: Successful removal of Port-A-Cath. Finalized by Oscar Chua on 06/20/2023 3:31 PM Normal [facility] C peptide [Mass/Vol]on 03-23 C PEPTIDE 4.90 ng/mL High 0.81-3.85 [facility] Comment on above: Result Comment: NOTE Test Performed By: [facility] [address] [place] [address] Structures Engineer: Kendrick Rod III, M.D. CLIA #[id number] Performed By: #### Wilian MODI, 51747-0, 13283-6 #### [facility] ([id number]) [address] [place] [address] [address] [place] [address] #### 1986-9 #### [facility] ([id number]) [address] [place] [address], [place] [address] Lipid 1996 panelon 4 Cholesterol [Mass/Vol] 193 mg/dL Normal 150-200 [facility] Comment on above: Performed By: #### Wilian MODI, 83847-7, 56178-9 #### [facility] ([id number]) [address] [facility] [facility], [address] [place] [address] #### 1986-9 #### [facility] ([id number]) [address] [place] [address] 46455 Cholesterol in HDL [Mass/Vol] 27 mg/dL Low >39 [facility] Comment on above: Result Comment: HDL <40 mg/dL - High Risk HDL > or = 40mg/dL- Desirable HDL >60 mg/dL - Negative Risk Performed By: ###Susy MODI, 37284-6, 35411-9 #### [facility] ([id number]) [address] [facility] [facility], [address] [place] [address] #### 1986-9 #### [facility] ([id number]) [address] [place] [address] 21345 Cholesterol in LDL [Mass/Vol] 135 mg/dL High <130 [facility] Comment on above: Result Comment: LDL <100 mg/dL - Desirable LDL >160 mg/dL - High Risk Performed By: ###Susy MODI, 61621-9, 40860-2 #### [facility] ([id number]) [address] [facility] [facility], [address] [place] [address] #### 1986-9 #### [facility] ([id number]) [address] [place] [address] 81076 Cholesterol in VLDL [Mass/Vol] 31 mg/dL High 0-30 [facility] Comment on above: Performed By: ###Susy MODI, 63549-8, 91418-8 #### [facility] ([id number]) [address] [facility], [address] [place] [address] #### 1986-9 #### [facility] ([id number]) [address] [place] [address] 94200 CHOLESTEROL:HDL 7.1 High 1.0-5.0 [facility] Comment on above: Performed By: #### Wilian MODI, 80257-8, 64801-4 #### [facility] ([id number]) [address] [place] [address], [address] [place] [address] #### 1986-9 #### [facility] ([id number]) [address] [place] [address] 69915 Triglyceride [Mass/Vol] 156 mg/dL High 27-150 [facility] Comment on above: Performed By: #### Wilian MODI, 86954-3, 03948-7 #### [facility] ([id number]) [address] [place] [address], [address] [place] [address] #### 1986-9 #### [facility] ([id number]) [address] [place] [address] 57741 MICROALBUMIN - ALBUMIN:CREAT ININE URINE RATIOon 03-23-2023 ALB/CREAT RATIO NOT CALCULATED Normal 0.0-30.[address] [facility] Comment on above: Result Comment: Result for Albumin/Creatinine Ratio cannot be reliably calculated because urine albumin and or urine creatinine is below the detection limit of the assay. Performed By: #### M ALBU #### [facility] ([id number]) [address] [place] [address], [address] [place] [address] Albumin DL <= 20 mg/L (U) [Mass/Vol] mg/dL Normal 0.0-1.9 [facility] Comment on above: Performed By: #### M ALBU #### [facility] ([id number]) [address] [place] [address], [address] [place] [address] URINE CREAT 81.94 mg/dL Normal [facility] Comment on above: Performed By: #### M ALBU #### [facility] ([id number]) [address] [facility] [facility], [address] [place] [address] RENAL PANELon 03-23-2023 Albumin [Mass/Vol] 4.3 g/dL Normal 3.2-5.3 [facility] Comment on above: Performed By: #### Wilian MODI, 30890-8, 13213-5 #### [facility] ([id number]) [address] [facility], [address] [place] [address] #### 1986-9 #### [facility] ([id number]) [address] [place] [address] 51229 Anion gap [Moles/Vol] 12 mmol/L Normal 5-15 [facility] Comment on above: Performed By: #### Wilian MODI, 99762-2, 01171-0 #### [facility] ([id number]) [address] [facility] [facility], [address] [place] [address] #### 1986-9 #### [facility] ([id number]) [address] [place] [address] 76919 Calcium [Mass/Vol] 9.7 mg/dL Normal 8.5-10.5 [facility] Comment on above: Performed By: #### Wilian MODI, 02272-5, 59821-4 #### [facility] ([id number]) [address] [facility] [facility], [address] [place] [address] #### 1986-9 #### [facility] ([id number]) [address] [place] [address] 57427 Chloride [Moles/Vol] 102 mmol/L Normal 98-109 [facility] Comment on above: Performed By: #### Wilian MODI, 45335-2, 35419-1 #### [facility] ([id number]) [address] [facility], [address] [place] [address] #### 1986-9 #### [facility] ([id number]) [address] [place] [address] 98003 CO2 [Moles/Vol] 24 mmol/L Normal 22-32 [facility] Comment on above: Performed By: #### Wilian MODI, 33571-0, 31599-4 #### [facility] ([id number]) [address] [facility], [address] [place] [address] #### 1986-9 #### [facility] ([id number]) [address] [place] [address] 85495 Creatinine [Mass/Vol] 0.86 mg/dL Normal 0.40-1.00 [facility] Comment on above: Result Comment: METH OD TRACEABLE TO IDMS STANDARD Performed By: #### Wilian MODI, 17665-9, 77693-3 #### [facility] ([id number]) [address] [place] [address], [address] [place] [address] #### 1986-9 #### [facility] ([id number]) [address] [place] [address] 27647 GFR/1.73 sq M.predicted among non-blacks MDRD (S/P/Bld) [Vol rate/Area] 79 mL/min/{1.73_m2} Normal >59 [facility] Comment on above: Result Comment: Reported eGFR is based on the CKD-EPI 2021 equation that does not use a race coefficient. Performed By: #### Wilian MODI, 85397-4, 92429-8 #### [facility] ([id number]) [address] [facility], [address] [place] [address] #### 1986-9 #### [facility] ([id number]) [address] [place] [address] 28336 Glucose [Mass/Vol] 406 mg/dL Critically high 65-99 [facility] Comment on above: Performed By: #### R LY, 59430-8, 60921-5 #### [facility] ([id number]) [address] [facility], [address] [place] [address] #### 1986-9 #### [facility] ([id number]) [address] [place] [address] 44228 Phosphate [Mass/Vol] 3.0 mg/dL Normal 2.4-4.9 [facility] Comment on above: Performed By: #### Wilian MODI, 49540-4, 96220-2 #### [facility] ([id number]) [address] [place] [address], [address] [place] [address] #### 1986-9 #### [facility] ([id number]) [address] [place] [address] 60560 Potassium [Moles/Vol] 4.2 mmol/L Normal 3.5-5.0 [facility] Comment on above: Performed By: #### Wilian MODI, 68092-4, 90948-9 #### [facility] ([id number]) [address] [place] [address], [address] [address] #### 1986-9 #### [facility] ([id number]) [address] [place] [address] 38238 Sodium [Moles/Vol] 138 mmol/L Normal 134-146 [facility] Comment on above: Performed By: #### R LY, 23470-0, 45666-7 #### [facility] ([id number]) [address] [place] [address], [address] [place] [address] #### 1986-9 #### [facility] ([id number]) [address] [place] [address] 28170 Urea nitrogen [Mass/Vol] 12 mg/dL Normal 5-23 [facility] Comment on above: Performed By: #### R LY, 53888-4, 28194-6 #### [facility] ([id number]) [address] [place] [address], [address] [place] [address] #### 1986-9 #### [facility] ([id number]) [address] [place] [address] 27917 Vitamin D+Metabolites [Mass/ Vol]on 03-23-2023 VITAMIN D 25 HYD TOT 21.7 ng/mL Low 30-100 [facility] Comment on above: Result Comment: Vitamin D status 25 [place] Vitamin D Deficiency <20 ng/mL Insufficiency 20-29 ng/mL Sufficiency 30-100 ng/mL Toxicity >100 ng/mL NOTE: A pediatric reference range has not been established by the head of partner development of this kit. The [place] [employer] recommends a Vitamin D level of = or >20ng/mL in infants and children. Performed By: #### R LY, 92095-9, 80950-0 #### [facility] ([id number]) [address] [place] [address], [address] [place] [address] #### 1986-9 #### [facility] ([id number]) [address] [place] [address] 20554 Office Visiton 02-15-2022 Follow-up visit [id number] Madhavi Kay 1965 F Date Provider Department Center 02/15/2022 [facility]G [place] Family History Problem Relation Age of Onset Hypertension Mother Hypertension Father Family Status - Relation Status Age at Mother Father Level of Service:62175 [place] OFFICE/OUTPATIENT NEW LOW MDM 30-44 MINUTES Reason for Visit and Comments: Consult [484] - Nasal fracture 1 yr ago s/p fall. Normal [facility] CULTURE URINEon 11-01-2021 CULTURE URINE Isolate [...] Trimethoprim/Sulfame thoxazole <=20 S F Normal [facility] Comment on above: Performed By: #### U RCX #### [facility] [address] [place] [address] Dr. Robert Buchanan ER URINE PROFILEon 2 Bilirubin Ql (U) Negative Normal NEGATIVE [facility] Comment on above: Performed By: #### MARTIN APONTE #### [facility] [address] [place] [address] Dr. Robert Buchanan Clarity (U) SL CLOUDY Abnormal CLEAR [facility] Comment on above: Performed By: #### MARTIN APONTE #### [facility] [address] [place] [address] Dr. Robert Buchanan Color (U) LT. YELLOW Normal YELLOW [facility] Comment on above: Performed By: #### MARTIN APONTE #### [facility] [address] [place] [address] Dr. Robert ULLOAJen A micrscopic examination will be performed if indicated. Normal [facility] Comment on above: Performed By: #### ANGEL APONTERO #### [facility] [address] [place] [address] Dr. Robert Buchanan Glucose Ql (U) 1000 mg/dl Abnormal NEGATIVE [facility] Comment on above: Performed By: #### ANGEL APONTERO #### [facility] [address] [place] [address] Dr. Robert Buchanan Hemoglobin Ql (U) SMALL Abnormal NEGATIVE [facility] Comment on above: Performed By: #### Tameka HU UMICRO #### [facility] [address] [place] [address] Dr. Robert Buchanan Ketones Ql (U) Negative Normal NEGATIVE [facility] Comment on above: Performed By: #### Tameka HU UMICRO #### [facility] [address] [place] [address] Dr. Robert Buchanan LEUKOCYTES SMALL Abnormal NEGATIVE [facility] Comment on above: Performed By: #### Tameka HU UMICRO #### [facility] [address] [place] [address] Dr. Robert Buchanan Nitrite Ql (U) Positive Abnormal NEGATIVE [facility] Comment on above: Performed By: #### Tameka HU UMICRO #### [facility] [address] [place] [address] Dr. Robert Buchanan pH (U) 5.5 [pH] Normal 5-9 [facility] Comment on above: Performed By: #### Tameka HU UMICRO #### [facility] [address] [place] [address] Dr. Robert Buchanan SPEC GRAVITY 1.020 Normal 1.005-<=1.025 [facility] Comment on above: Performed By: #### Tameka HU UMICRO #### [facility] [address] [place] [address] Dr. Robert Buchanan UA PROTEIN Negative Normal NEGATIVE/ TRACE [facility] Comment on above: Performed By: #### Tameka HU UMICRO #### [facility] [address] [place] [address] Dr. Robert Buchanan UR MICRO IND INDICATED Normal [facility] Comment on above: Performed By: #### Tameka HU UMICRO #### [facility] [address] [place] [address] Dr. Robert Buchanan Urobilinogen Qn (U) 0.2 {Rachael'U}/dL Normal 0.2 - 1. 0 [facility] Comment on above: Performed By: #### Tameka HU UMICRO #### [facility] [address] [place] [address] Dr. Robert Buchanan POINT OF CARE GLUCOSEon Glucose [Mass/Vol] 335 mg/dL Critically high 74-106 [facility] Comment on above: Performed By: #### P OCGLUC #### [facility] [address] [place] [address] Dr. Robert Buchanan URINE MICROSCOPIC ONLYon BACTERIA MODERATE Abnormal NONE SEEN [facility] Comment on above: Performed By: #### Tameka HU, UMICRO #### [facility] [address] [place] [address] Dr. Robert Buchanan Bacteria identified Cx Nom (U) INDICATED Normal [facility] Comment on above: Performed By: #### Tameka HU UMICRO #### [facility] [address] [place] [address] Dr. Robert Buchanan CAST NONE SEEN Normal NONE SEEN [facility] Comment on above: Performed By: #### Tameka HU UMICRO #### [facility] [address] [place] [address] Dr. Robert Buchanan Crystals LM Nom (Urine sed) NONE SEEN Normal NONE SEEN [facility] Comment on above: Performed By: #### Tameka HU UMICRO #### [facility] [address] [place] [address] Dr. Robert Buchanan Epithelial cells LM Ql (Urine sed) FEW Abnormal NONE SEEN /RARE [facility] Comment on above: Performed By: #### Tameka HU UMICRO #### [facility] [address] [place] [address] Dr. Robert Buchanan MUCOUS NONE SEEN Normal NONE SEEN [facility] Comment on above: Performed By: #### Tameka HU UMICRO #### [facility] [address] [place] [address] Dr. Robert Buchanan RBC 0-2 Normal 0-2 [facility] Comment on above: Performed By: #### Tameka HU UMICRO #### [facility] [address] [place] [address] Dr. Robert Buchanan WBC 5-10 Abnormal NONE SEEN [facility] Comment on above: Performed By: #### E MARTIN HU #### [facility] [address] [address] [address] Robert Buchanan EBV, Quant. PCRon 09-18-2021 EBV, Quant. Source .BLOOD Normal [facility] Comment on above: Performed By: #### A CMVDN #### [address] [phone] Vice Chair: Kevin Sanches MD [address] [phone] Vice Chair: Satinder Richardson MD #### AATRPH, AASMF #### [address] [phone] Vice Chair: Satinder Richardson MD #### TRFE, ANASCN, FERI, PHEP, CER, LIVP, AMAB #### [address] [phone] Vice Chair: Cisco Andrade MD #### PT #### [address] [address] Vice Chair: Kevin Sanches MD #### AEBVQ #### [address] [id number] Vice Chair: Cisco Andrade MD [address] [phone] Vice Chair: Satinder Richardson MD A1 Antitrypsin Phenoon 09-13 A1 Antitryp Phenotype M1M2 Normal [facility] Comment on above: Result Comment: (NOT E) The patient appears to have a normal phenotype. All M alleles (including subtypes M1, M2, and M3) produce normal serum concentrations of tiixy-5-npphpcfy inhibitor and are not associated with clinical disease. Caution in interpretation is advised if the patient has been transfused within the previous 21 days. Performed By: [facility] [address] [place] [address] Structures Engineer: Reza Guajardo MD, PhD Performed By: #### A CMVDN #### [address] [address] Vice Chair: Kevin Sanches MD [address] [phone] Vice Chair: Satinder Richardson MD #### AATCLIFFORD, AASIsidroF #### [address] [address] Vice Chair: Satinder Richardson MD #### TRFE, ANASCN, FERI, PHEP, CER, LIVP, AMAB #### [address] [phone] Vice Chair: Cisco Andrade MD #### PT #### [address] [address] Vice Chair: Kevin Sanches MD #### AEBVQ #### [address] [phone] Vice Chair: Cisco Andrade MD [address] [phone] Vice Chair: Satinder Richardson MD A1 Antitrypsin 150 mg/dL Normal 90-200 [facility] Comment on above: Result Comment: To c onvert to umol/L, multiply mg/dL by 0.185 Performed By: #### A CMVDN #### [address] [address] Vice Chair: Kevin Sanches MD [address] [phone] Vice Chair: Satinder Richardson MD #### AATCLIFFORD, AASMF #### [address] [phone] Vice Chair: Satinder Richardson MD #### TRSHEEBA, ROSALBA, OSBALDOI, PHEP, CER, LIVP, AMAB #### [address] [address] Vice Chair: Cisco Andrade MD #### PT #### [address] [phone] Vice Chair: Kevin Sanches MD #### AEBVQ #### [address] [phone] Vice Chair: Cisco Andrade MD [address] [phone] Vice Chair: Satinder Richardson MD Anti-Mitochondrial Abon 07-1 Anti-Mitochondrial Ab 1.1 U/mL Normal 0.0-4.0 [facility] Comment on above: Result Comment: Reference Range: <4.0 Negative 4.0-6.0 Equivocal >6.0 Positive When results are Equivocal, it is recommended to retest after 8-12 weeks. Performed By: #### A CMVDN #### [address] [phone] Vice Chair: Kevin Sanches MD [address] [phone] Vice Chair: Satinder Richardson MD #### AATCLIFFORD, AASMF #### [facility] [address] [place] [address] [phone] Vice Chair: Satinder Richardson MD #### ELLYN, ANNEMARIE NAVARRETE, PHEP, CER, LIVP, AMAB #### [address] [phone] Vice Chair: Cisco Andrade MD #### PT #### [address] [place], [place] [phone] Vice Chair: Kevin Sanches MD #### AEBVQ #### [address] [phone] Vice Chair: Cisco Andrade MD [address] [phone] Vice Chair: Satinder Richardson MD CMV Quant by PCRon 2 CMV by PCR Interp Not detected Normal Not Detected [facility] Comment on above: Result Comment: (NOT E) NOT DETECTED - A negative result does not rule out the presence of PCR inhibitors in the patient specimen or assay specific nucleic acid in concentrations below the level of detection by the assay. Performed by [facility], [address] [place] [address] [phone] [email or web address], Reza Guajardo MD, PHD, Lab. Director Performed By: #### A CMVDN #### [address] [address] Vice Chair: Kevin Sanches MD [address] [phone] Vice Chair: Satinder Richardson MD #### AATRPH, AASMF #### [address] [phone] Vice Chair: Satinder Richardson MD #### TRFE, ANASCN, FERI, PHEP, CER, LIVP, AMAB #### [address] [phone] Vice Chair: Cisco Andrade MD #### PT #### [address] [phone] Vice Chair: Kevin Sanches MD #### AEBVQ #### [address] [phone] Vice Chair: Cisco Andrade MD [address] [address] Vice Chair: Satinder Richardson MD CMV Quant <2.6 Normal [facility] Comment on above: Result Comment: (NOT E) [...] developed and its performance characteristics determined by [facility]. It has not been cleared or approved by the US Food and Drug Administration. This test was performed in a CLIA certified laboratory and is intended for clinical purposes. Performed By: #### A CMVDN #### [address] [address] Vice Chair: Kevin Sanches MD [address] [phone] Vice Chair: Satinder Richardson MD #### AATCLIFFORD, AASMF #### [facility] [address] [place] [address] [phone] Vice Chair: Satinder Richardson MD #### TRFE, ANASCN, FERI, PHEP, CER, LIVP, AMAB #### [address] [phone] Vice Chair: Cisco Andrade MD #### PT #### [address] [address] Vice Chair: Kevin Sanches MD #### AEBVQ #### [address] [address] Vice Chair: Cisco Andrade MD [facility] [address] [place] [address] [phone] Vice Chair: Satinder Richardson MD CMV Quant Copy/mL <390 Normal [facility] Comment on above: Performed By: #### A CMVDN #### [address] [address] Vice Chair: Kevin Sanches MD [address] [phone] Vice Chair: Satinder Richardson MD #### AATRPH, AASMF #### [facility] [address] [place] [address] [phone] Vice Chair: Satinder Richardson MD #### TRFE, ANASCN, FERI, PHEP, CER, LIVP, AMAB #### [address] [address] Vice Chair: Cisco Andrade MD #### PT #### [address] 8[address] Vice Chair: Kevin Sanches MD #### AEBVQ #### [address] [address] Vice Chair: Cisco Andrade MD [facility] [address] [place] [phone] Vice Chair: Satinder Richardson MD CMV Quant IU/mL <227 Normal [facility] Comment on above: Performed By: #### A CMVDN #### [address] [address] Vice Chair: Kevin Sanches MD [facility] [address] [place] [phone] Vice Chair: Satinder Richardson MD #### NELA MARIN #### [facility] [address] [place] [address] Vice Chair: Satinder Richardson MD #### ELLYN, ROSALBA, FERI, PHEP, CER, LIVP, AMAB #### [address] [phone] Vice Chair: Cisco Andrade MD #### PT #### [address] [phone] Vice Chair: Kevin Sanches MD #### AEBVQ #### [address] [phone] Vice Chair: Cisco Andrade MD [address] [phone] Vice Chair: Satinder Richardson MD CMV Quant Log IU/mL <2.4 Normal [facility] Comment on above: Performed By: #### A CMVDN #### [address] [phone] Vice Chair: Kevin Sanches MD [address] [phone] Vice Chair: Satinder Richardson MD #### NELA MARIN #### [facility] [address] [place] [address] Vice Chair: Satinder Richardson MD #### ELLYN, ROSALBA, ANNEMARIE, PHEP, CER, LIVP, AMAB #### [address] [address] Vice Chair: Cisco Andrade MD #### PT #### [address] [address] Vice Chair: Kevin Sanches MD #### AEBVQ #### [address] [phone] Vice Chair: Cisco Andrade MD [address] [phone] Vice Chair: Satinder Richardson MD EBV, Quant. PCRon 09-11-2021 EBV, Quant. Copy/mL <390 Normal [facility] Comment on above: Performed By: #### A CMVDN #### [address] [address] Vice Chair: Kevin Sanches MD [address] [phone] Vice Chair: Satinder Richardson MD #### AATRPH, AASMF #### [address] [phone] Vice Chair: Satinder Richardson MD #### TRFE, ANASCN, FERI, PHEP, CER, LIVP, AMAB #### [address] [address] Vice Chair: Cisco Andrade MD #### PT #### [address] [address]842 Vice Chair: Kevin Sanches MD #### AEBVQ #### [address] [phone] Vice Chair: Cisco Andrade MD [address] [phone] Vice Chair: Satinder Richardson MD EBV, Quant. Interp Not detected Normal Not Detected [facility] Comment on above: Result Comment: (NOT E) NOT DETECTED - A negative result does not rule out the presence of PCR inhibitors in the patient specimen or assay specific nucleic acid in concentrations below the level of detection by the assay. Performed by [facility], [address] [place] [address] [email or web address], Reza Guajardo MD, PHD, Lab. Director Performed By: #### A CMVDN #### [address] [phone] Vice Chair: Kevin Sanches MD [place] [phone] Vice Chair: Satinder Richardson MD #### AATRPH, AASMF #### [address] [phone] Vice Chair: Satinder Richardson MD #### TRFE, ANASCN, FERI, PHEP, CER, LIVP, AMAB #### [address] [phone] Vice Chair: Cisco Andrade MD #### PT #### [address] [phone] Vice Chair: Kevin Sanches MD #### AEBVQ #### [address] [phone] Vice Chair: Cisco Andrade MD [place] [phone] Vice Chair: Satinder Richardson MD EBV, Quant. Log <2.6 Normal [facility] Comment on above: Result Comment: (NOT E) [...] developed and its performance characteristics determined by [facility]. It has not been cleared or approved by the US Food and Drug Administration. This test was performed in a CLIA certified laboratory and is intended for clinical purposes. Performed By: #### A CMVDN #### [address] [phone] Vice Chair: Kevin Sanches MD [address] [phone] Vice Chair: Satinder Richardson MD #### AATCLIFFORD AASMF #### [address] [phone] Vice Chair: Satinder Richardson MD #### TRFE, ANASCN, FERI, PHEP, CER, LIVP, AMAB #### [address] [phone] Vice Chair: Cisco Andrade MD #### PT #### [address] [address] Vice Chair: Kevin Sanches MD #### AEBVQ #### [address] [phone] Vice Chair: Cisco Andrade MD [place] [phone] Vice Chair: Satinder Richardson MD ASHLEY Screenon 09-10-2021 ASHLEY Screen Negative Normal NEG [facility] Comment on above: Performed By: #### A CMVDN #### [address] [address] Vice Chair: Kevin Sanches MD [address] [phone] Vice Chair: Satinder Richardson MD #### AATCLIFFORD, AASMF #### [address] [address] Vice Chair: Satinder Richardson MD #### TRFE, SGN, FERI, PHEP, CER, LIVP, AMAB #### [address] [phone] Vice Chair: Cisco Andrade MD #### PT #### [place] [address] Vice Chair: Kevin Sanches MD #### AEBVQ #### [address] [address] Vice Chair: Cisco Andrade MD [address] [phone] Vice Chair: Satinder Richardson MD Anti-dsDNA 0.9 IU/mL Normal <10.0 [facility] Comment on above: Result Comment: Reference Range: <10.0 Negative 10.0-15.0 Equivocal >15.0 Positive Performed By: #### A CMVDN #### [place] [address] Vice Chair: Kevin Sanches MD [address] [phone] Vice Chair: Satinder Richardson MD #### AATUVALDOH, AASMF #### [address] [address] Vice Chair: Satinder Richardson MD #### TRSHEEBA, ROSALBA, FERI, PHEP, CER, LIVP, AMAB #### [address] [phone] Vice Chair: Cisco Andrade MD #### PT #### [address] [address] Vice Chair: Kevin Sanches MD #### AEBVQ #### [address] [phone] Vice Chair: Cisco Andrade MD [address] [phone] Vice Chair: Satinder Richardson MD JOYCE Screen 0.4 U/mL Normal <0.7 [facility] Comment on above: Result Comment: Reference Range: <0.7 Negative 0.7-1.0 Equivocal >1.0 Positive JOYCE Screen includes U1RNP,RNP70,Sm,Ro(SS-A),La(SS-B),CENP,Scl-70,Valeria-1 Performed By: #### A CMVDN #### [place] [phone] Vice Chair: Kevin Sanches MD [place] [phone] Vice Chair: Satinder Richardson MD #### AATRPH, AASMF #### [address] [phone] Vice Chair: Satinder Richardson MD #### TRFE, ANASCN, FERI, PHEP, CER, LIVP, AMAB #### [address] [phone] Vice Chair: Cisco Andrade MD #### PT #### [address] [address] Vice Chair: Kevin Sanches MD #### AEBVQ #### [address] [phone] Vice Chair: Cisco Andarde MD [address] [phone] Vice Chair: Satinder Richardson MD Smooth Muscle Abon 2 Smooth Muscle Ab 11 Units Normal 0-19 [facility] Comment on above: Result Comment: (NOT [...] suspicion for AIH is strong. Performed By: [facility] [address] [place] [address] Structures Engineer: Reza Guajardo MD, PhD Performed By: #### A CMVDN #### [address] [address] Vice Chair: Kevin Sanches MD [facility] [address] [place] [address] Vice Chair: Satinder Richardson MD #### TOMAS, AASMF #### [address] [address] Vice Chair: Satinder Richardson MD #### TRFE, ANASCN, FERI, PHEP, CER, LIVP, AMAB #### [address] [address] Vice Chair: Cisco Andrade MD #### PT #### [address] [address] Vice Chair: Kevin Sanches MD #### AEBVQ #### [address] [address] Vice Chair: Cisco Andrade MD [address] [phone] Vice Chair: Satinder Richardson MD Ceruloplasminon 09-08-2021 Ceruloplasmin 24 mg/dL Normal 16-45 [facility] Comment on above: Performed By: #### A CMVDN #### [address] [phone] Vice Chair: Kevin Sanches MD [address] [phone] Vice Chair: Satinder Richardson MD #### AATRPH, AASMF #### [address] [phone] Vice Chair: Satinder Richardson MD #### TRFE, ANASCN, FERI, PHEP, CER, LIVP, AMAB #### [address] [address] Vice Chair: Cisco Andrade MD #### PT #### [address] [phone] Vice Chair: Kevin Sanches MD #### AEBVQ #### [address] [address] Vice Chair: Cisco Andrade MD [address] [phone] Vice Chair: Satinder Richardson MD Ferritinon 09-08-2021 Ferritin [Mass/Vol] 86 ng/mL Normal 13-150 [facility] Comment on above: Performed By: #### A CMVDN #### [address] [phone] Vice Chair: Kevin Sanches MD [facility] [address] [place] [address] Vice Chair: Satinder Richardson MD #### AATCLIFFORD AASMF #### [facility] [address] [place] [address] Vice Chair: Satinder Richardson MD #### TRFE, ANASCN, FERI, PHEP, CER, LIVP, AMAB #### [address] [phone] Vice Chair: Cisco Andrade MD #### PT #### [address] [address] Vice Chair: Kevin Sanches MD #### AEBVQ #### [address] [phone] Vice Chair: Cisco Andrade MD [address] [address] Vice Chair: Satinder Richardson MD Liver Profileon 09-08-2021 Albumin [Mass/Vol] 4.3 g/dL Normal 3.5-5.2 [facility] Comment on above: Performed By: #### A CMVDN #### [address] [phone] Vice Chair: Kevin Sanches MD [address] [address] Vice Chair: Satinder Richardson MD #### AATCLIFFORD AASMF #### [facility] [address] [place] [address] Vice Chair: Satinder Richardson MD #### TRFE, ANASCN, FERI, PHEP, CER, LIVP, AMAB #### [address] [phone] Vice Chair: Cicso Andrade MD #### PT #### [address] [phone] Vice Chair: Kevin Sanches MD #### AEBVQ #### [address] [address] Vice Chair: Cisco Andrade MD [address] [phone] Vice Chair: Satinder Richardson MD Albumin/Glob Ratio 1.7 Normal 1.0-2.5 [facility] Comment on above: Performed By: #### A CMVDN #### [address] [address] Vice Chair: Kevin Sanches MD [address] [phone] Vice Chair: Satinder Richardson MD #### AATRPH, AASMF #### [address] [phone] Vice Chair: Satinder Richardson MD #### TRFE, ANASCN, FERI, PHEP, CER, LIVP, AMAB #### [address] [phone] Vice Chair: Cisco Andrade MD #### PT #### [address] [address] Vice Chair: Kevin Sanches MD #### AEBVQ #### [address] [phone] Vice Chair: Cisco Andrade MD [address] [phone] Vice Chair: Satinder Richardson MD Alkaline Phos 69 U/L Normal 35-104 [facility] Comment on above: Performed By: #### A CMVDN #### [facility] [address] [phone] Vice Chair: Kevin Sanches MD [facility] [address] [place] [address] [phone] Vice Chair: Satinder Richardson MD #### GRAY MARINF #### [facility] [address] [place] [address] [phone] Vice Chair: Satinder Richardson MD #### TRFE, ANASCN, FERI, PHEP, CER, LIVP, AMAB #### [address] [phone] Vice Chair: Cisco Andrade MD #### PT #### [address] [phone] Vice Chair: Kevin Sanches MD #### AEBVQ #### [address] [phone] Vice Chair: Cisco Andrade MD [address] [phone] Vice Chair: Satinder Richardson MD ALT [Catalytic activity/Vol] 33 U/L Normal 5-33 [facility] Comment on above: Performed By: #### A CMVDN #### [address] [phone] Vice Chair: Kevin Sanches MD [facility] [address] [place] [address] [phone] Vice Chair: Satinder Richardson MD #### GRAY MARINF #### [facility] [address] [place] [address] [phone] Vice Chair: Satinder Richardson MD #### TRFE, ANASCN, FERI, PHEP, CER, LIVP, AMAB #### [address] [phone] Vice Chair: Cisco Andrade MD #### PT #### [address] [phone] Vice Chair: Kevin Sanches MD #### AEBVQ #### [address] [phone] Vice Chair: Cisco Andrade MD [facility] [address] [place] [address] 17548 Vice Chair: Satinder Richardson MD AST [Catalytic activity/Vol] 51 U/L High <32 [facility] Comment on above: Performed By: #### A CMVDN #### [address] [phone] Vice Chair: Kevin Sanches MD [address] [phone] Vice Chair: Satinder Richardson MD #### AATRPH, AASMF #### [facility] [address] [place] [address] [phone] Vice Chair: Satinder Richardson MD #### TRFE, ANASCN, FERI, PHEP, CER, LIVP, AMAB #### [address] [phone] Vice Chair: Cisco Andrade MD #### PT #### [address] [address] Vice Chair: Kevin Sanches MD #### AEBVQ #### [address] [phone] Vice Chair: Cisco Andrade MD [facility] [address] [place] [address] 96[address] Vice Chair: Satinder Richardson MD Bilirubin [Mass/Vol] 0.69 mg/dL Normal 0.3-1.2 [facility] Comment on above: Performed By: #### A CMVDN #### [address] [phone] Vice Chair: Kevin Sanches MD [facility] [address] [place] [address] [phone] Vice Chair: Satinder Richardson MD #### NELA MARIN #### [facility] [address] [place] [address] [phone] Vice Chair: Satinder Richardson MD #### TRFE, ANASCN, FERI, PHEP, CER, LIVP, AMAB #### [address] [phone] Vice Chair: Cisco Andrade MD #### PT #### [address] [phone] Vice Chair: Kevin Sanches MD #### AEBVQ #### [address] [phone] Vice Chair: Cisco Andrade MD [address] [phone] Vice Chair: Satinder Richardson MD Bilirubin, Indirect 0.52 mg/dL Normal 0.00-1.00 [facility] Comment on above: Performed By: #### A CMVDN #### [address] [address] Vice Chair: Kevin Sanches MD [facility] [address] [place], [place] [phone] Vice Chair: Satinder Richardson MD #### AATCLIFFORD, AASMF #### [facility] [address] [place] [address] 83908 Vice Chair: Satinder Richardson MD #### TRFE, ANASCN, FERI, PHEP, CER, LIVP, AMAB #### [address] [address] Vice Chair: Cisco Andrade MD #### PT #### [address] [address] Vice Chair: Kevin Sanches MD #### AEBVQ #### [address] [address] Vice Chair: Cisco Andrade MD [facility] [address] [place] [address] [phone] Vice Chair: Satinder Richardson MD Bilirubin.indirect [Mass/Vol] 0.17 mg/dL Normal <0.31 [facility] Comment on above: Performed By: #### A CMVDN #### [address] [address] Vice Chair: Kevin Sanches MD [facility] [address] [place] [address] [phone] Vice Chair: Satinder Richardson MD #### AATRPH, AASMF #### [facility] [address] [place], [place] [phone] Vice Chair: Satinder Richardson MD #### TRFE, ANASCN, FERI, PHEP, CER, LIVP, AMAB #### [address] [address] Vice Chair: Cisco Andrade MD #### PT #### [address] [address] Vice Chair: Kevin Sanches MD #### AEBVQ #### [address] [address] Vice Chair: Cisco Andrade MD [facility] [address] [place], [place] [phone] Vice Chair: Satinder Richardson MD Protein [Mass/Vol] 6.9 g/dL Normal 6.4-8.3 [facility] Comment on above: Performed By: #### A CMVDN #### [address] [phone] Vice Chair: Kevin Sanches MD [address] [phone] Vice Chair: Satinder Richardson MD #### GRAY MARINF #### [address] [phone] Vice Chair: Satinder Richardson MD #### TRFE, ANASCN, FERI, PHEP, CER, LIVP, AMAB #### [address] [phone] Vice Chair: Cisco Andrade MD #### PT #### [address] [phone] Vice Chair: Kevin Sanches MD #### AEBVQ #### [address] [phone] Vice Chair: Cisco Andrade MD [address] [phone] Vice Chair: Satinder Richardson MD Transferrinon 09-08-2021 Transferrin [Mass/Vol] 248 mg/dL Normal 200-360 [facility] Comment on above: Performed By: #### A CMVDN #### [address] [phone] Vice Chair: Kevin Sanches MD [address] [phone] Vice Chair: Satinder Richardson MD #### TOMAS AASMF #### [facility] [address] [place] [address] Vice Chair: Satinder Richardson MD #### TRFE, ANASCN, FERI, PHEP, CER, LIVP, AMAB #### [facility] [address] [place] [address] Vice Chair: Cisco Andrade MD #### PT #### [place] [id number] [place], [place] [phone] Vice Chair: Kevin Sanches MD #### AEBVQ #### [address] [phone] Vice Chair: Cisco Andrade MD [facility] [address] [place] [address] Vice Chair: Satinder Richardson MD LIVERon 09-08-2021 US LIVER [...] Eli Pantoja MD 09/08/21 Final result Normal [facility] CMV Quant by PCRon 2 CMV Source .BLOOD Normal [facility] Comment on above: Performed By: #### A CMVDN #### [address] [phone] Vice Chair: Kevin Sanches MD [facility] [address] [place] [address] 00136 Vice Chair: Satinder Richardson MD #### NELA MARIN #### [facility] [address] [place] [address]17 Vice Chair: Satinder Richardson MD #### TRFE, ANASCN, FERI, PHEP, CER, LIVP, AMAB #### [address] [phone] Vice Chair: Cisco Andrade MD #### PT #### [address] [phone] Vice Chair: Kevin Sanches MD #### AEBVQ #### [address] [phone] Vice Chair: Cisco Andrade MD [address] [phone] Vice Chair: Satinder Richardson MD Hepatitis Acute [facility] [place] 09-07 Hep A Ab,IgM Non-Reactive Normal NR [facility] Comment on above: Performed By: #### A CMVDN #### [address] [address] Vice Chair: Kevin Sanches MD [facility] [address] [place] [address] [phone] Vice Chair: Satinder Richardson MD #### AATCLIFFORD AASMF #### [facility] [address] [place] [address] 88081 Vice Chair: Satinder Richardson MD #### TRFE, ANASCN, FERI, PHEP, CER, LIVP, AMAB #### [address] [address] Vice Chair: Cisco Andrade MD #### PT #### [address] [address] Vice Chair: Kevin Sanches MD #### AEBVQ #### [address] [address] Vice Chair: Cisco Andrade MD [address] [phone] Vice Chair: Satinder Richardson MD Hep B Core Ab,IgM Non-Reactive Normal NR [facility] Comment on above: Performed By: #### A CMVDN #### [address] [address] Vice Chair: Kevin Sanches MD [facility] [address] [place] [address] [phone] Vice Chair: Satinder Richardson MD #### AATRPH AASMF #### [facility] [address] [place] [address] 97512 Vice Chair: Satinder Richardson MD #### TRFE, ANASCN, FERI, PHEP, CER, LIVP, AMAB #### [address] [address] Vice Chair: Cisco Andrade MD #### PT #### [address] [phone] Vice Chair: Kevin Sanches MD #### AEBVQ #### [address] [address] Vice Chair: Cisco Andrade MD [facility] [address] [place] [address] Vice Chair: Satinder Richardson MD Hep B Surf Ag Non-Reactive Normal NR [facility] Comment on above: Performed By: #### A CMVDN #### [address] [address] Vice Chair: Keivn Sanches MD [address] [phone] Vice Chair: Satinder Richardson MD #### AATRPH, AASMF #### [facility] [address] [place] [address] [phone] Vice Chair: Satinder Richardson MD #### TRFE, ANASCN, FERI, PHEP, CER, LIVP, AMAB #### [address] [address] [phone] Vice Chair: Cisco Andrade MD #### PT #### [address] [address] Vice Chair: Kevin Sanches MD #### AEBVQ #### [address] [phone] Vice Chair: Cisco Andrade MD [address] [phone] Vice Chair: Satinder Richardson MD Hep C Ab Non-Reactive Normal NR [facility] Comment on above: Result Comment: The hepatitis [...] PCR. Performed By: #### A CMVDN #### [address] [address] Vice Chair: Kevin Sanches MD [address] [phone] Vice Chair: Satinder Richardson MD #### AATRPH, AASMF #### [facility] [address] [place], [place] [phone] Vice Chair: Satinder Richardson MD #### TRFE, ANASCN, FERI, PHEP, CER, LIVP, AMAB #### [facility] [address] [place] [address] [phone] Vice Chair: Cisco Andrade MD #### PT #### [address] [address] Vice Chair: Kevin Sanches MD #### AEBVQ #### [address] [phone] Vice Chair: Cisco Andrade MD [address] [phone] Vice Chair: Satinedr Richardson MD Hepatitis Panel, Acuteon HAV IgM IA Qn (S) Non-Reactive NONREACTIVE [facility] Hep B Core Ab, IgM Non-Reactive NONREACTIVE [facility] Hepatitis B Surface Ag Non-Reactive NONREACTIVE [facility] Hepatitis C Ab Non-Reactive NONREACTIVE [facility] Comment on above: The hepatitis C procedure [...] recommended by ordering HCV RNA by PCR. [facility] PTon 09-07-2021 INR Coag (PPP) [Relative time] 1.1 {INR} Normal [facility] Comment on above: Result Comment: Therapeutic Range: Moderate Anticoagulant Intensity: INR = 2.0-3.0 High Anticoagulant Intensity: INR = 2.5-3.5 Performed By: #### A CMVDN #### [facility] [address] [phone] Vice Chair: Kevin Sanches MD [facility] [address] [place] [address] [phone] Vice Chair: Satinder Richardson MD #### NELA MARIN #### [facility] [address] [place] [address] [phone] Vice Chair: Satinder Richardson MD #### TRFE, ANASCN, FERI, PHEP, CER, LIVP, AMAB #### [address] [phone] Vice Chair: Cisco Andrade MD #### PT #### [address] [phone] Vice Chair: Kevin Sanches MD #### AEBVQ #### [address] [address] Vice Chair: Cisco Andrade MD [address] [phone] Vice Chair: Satinder Richardson MD PT Coag (PPP) [Time] 10.9 s Normal 9.4-12.6 [facility] Comment on above: Performed By: #### A CMVDN #### [address] [address] Vice Chair: Kevin Sanches MD [facility] [address] [place] [address] [phone] Vice Chair: Satinder Richardson MD #### NELA MARIN #### [facility] [address] [place], [place] [phone] Vice Chair: Satinder Richardson MD #### TRFE, ANASCN, FERI, PHEP, CER, LIVP, AMAB #### [address] [address] Vice Chair: Cisco Andrade MD #### PT #### [facility] [address] [place] [address] Vice Chair: Kevin Sanches MD #### AEBVQ #### [facility] [address] [place], [place] [phone] Vice Chair: Cisco Andrade MD [facility] [address] [place] [address] Vice Chair: Satinder Richardson MD [facility]INRon 09-07-2021 INR Coag (Bld) [Relative time] 1.1 {INR} [facility] Dr[facility] Scribbles Comment on above: Therapeutic Range: Moderate Anticoagulant Intensity: INR = 2.0-3.0 High Anticoagulant Intensity: INR = 2.5-3.5 PT Coag (PPP) [Time] 10.[address] [facility] Scribbles [email or web address] [facility] CT KNEE RT WO CONon 07-16-19 CT [...] by: JORDAN CHRISTIANSON Date: 2021-07-15 15:21 Normal [facility] Coding Summary.on 06-20-2017 Coding Summary. CODING DATE: 06/20/2017 FINAL [facility] DSC STATUS: Home (Routine DC) PAYOR: Medicaid [...] malignant neoplasm of cervix uteri Z79.84 terminal gauger (current) use of oral hypoglycemic drugs PYMT PROC EAPG STAT DESCRIPTION DOCTOR NAME DATE NOTE: The code number assigned matches the documented diagnosis and / or procedure in the patient's chart. However, the narrative phrase printed from the coding software may appear abbreviated, or result in slightly different terminology. Coded By: Rosa Mcginnis Date Saved: 06/20/2017 04:16 pm Normal [facility] Main OR Intraoperative Recor don 06-16-2017 Main OR Intraoperative Record IntraOp Document Type FTURO Summary Primary Physician: Riccardo Melgar Jr., MD Finalized Date/Time: 06/16/17 15:09:35 Pt. Name: MADHAVI KAY/Sex: 1965 Female Med Rec #: [id number] Physician: Riccardo Melgar Jr., MD Financial #: [id number] Pt. Type: O Room/Bed: / Admit/Disch: 06/16/17 13:18:47 - Institution: Case Times FTURO Entry 1 Patient Times In Room 06/16/17 14:55:00 Out Room 06/16/17 15:12:00 Procedure Times Start 06/16/17 15:03:00 Stop 06/16/17 15:09:00 Anesthesia Times Last Modified By: Sana POZO, Jonelle RIVERS 06/16/17 15:09:24 Case Attendance FTURO Entry 1 Entry 2 Entry 3 Case Attendee Sana POZO, RN, Lida RAMOS, Riccardo Robbins Jr., MD Role Performed Transit Driver - Primary Scrub - Primary Surgeon - Primary Time In 06/16/17 14:55:00 06/16/17 14:55:00 04/19/18 14:55:00 Time Out 06/16/17 15:12:00 06/16/17 15:12:00 [...] CYSTOSCOPY WITH BOTOX 100 UNITS lot number [id number] Primary Procedure Yes Primary Surgeon Ramón Buchanan [...] Verified Availability Equipment, Implant, Time Out Sana POZO, TITA, Verified (If Medication Participants Lida Sal [facility] Applicable) Ramón Cedeno Jr., MD, Donald L Time Out Complete 06/16/17 15:00:00 Allergies Reviewed? Yes Allergies Reviewed Self/Patient With Body Position Low Lithotomy Prep Area perinium Prep Agents Betadine Solution Skin. Condition Intact, [place], Warm, and Dry Additional None Specimens Collected [...] Sana POZO RN, Kelly 06/16/17 15:09 Normal [facility] Main OR Preoperative Recordo n 06-16-2017 Main OR Preoperative Record Holding Area Document Type FTURO Summary Primary Physician: Riccardo Melgar Jr., MD Finalized Date/Time: 06/16/17 14:00:57 Pt. Name: MADHAVI KAY/Sex: 1965 Female Med Rec #: [id number] Physician: Riccardo Melgar Jr., MD Financial #: [id number] Pt. Type: O Room/Bed: / Admit/Disch: 06/16/17 [...] Pain Comment: 07/07 stomach Skin Integrity Intact, [place], Warm, & Dry Vitals - EU Blood Pressure 141/97 Pulse 82 bpm Respirations 18 br/min SPO2 RN Reviewed Yes Last Modified By: Sana POZO RN, Kelly 06/16/17 14:00:49 Finalized By: Sana POZO RN, Kelly Document Signatures Signed By: Yvonne Coy LPN 06/16/17 13:50 Sana POZO RN, Kelly 06/16/17 14:00 Normal [facility] Operative Reporton 8 Operative Report Patient: MADHAVI KAY Age: 51 [...] home with antibiotic coverage, Follow up arranged. Normal [facility] Comment on above: Result Comment: Elec tronically Signed By: Ramón Buchanan MD, Riccardo Macias\yefri\Date and Time Signed: 06/16/17 15:12 EDT Coding Summary.on 01-19-2017 Coding Summary. CODING DATE: 01/19/2017 FINAL [facility] STATUS: Home (Routine DC) PAYOR: Medicaid EA DESCRIPTION 0161 URINARY STUDIES AND PROCEDURES 0425 LEVEL I OTHER MISCELLANEOUS ANCILLARY PROCEDURES 0288 DIAGNOSTIC ULTRASOUND EXCEPT OBSTETRICAL AND VASCULAR OF LOWER EXTREMITIES ADMIT DX: REASON FOR VISIT DX: N35.9 Urethral stricture, unspecified FINAL DX: PRINCIPAL: N35.9 Urethral stricture, unspecified SECONDARY: R35.1 Nocturia R30.0 Dysuria N39.41 Urge incontinence E11.9 Type 2 diabetes mellitus without complications Z79.82 terminal gauger (current) use of aspirin I10 Essential (primary) hypertension E78.5 Hyperlipidemia, unspecified G40.909 Epilepsy, unspecified, not intractable, without status epilepticus Z85.41 Personal history of malignant neoplasm of cervix uteri Z79.84 FPC (current) use of oral hypoglycemic drugs PYMT [facility] EAPG STAT DESCRIPTION DOCTOR NAME DATE NOTE: The code number assigned matches the documented diagnosis and / or procedure in the patient's chart. However, the narrative phrase printed from the coding software may appear abbreviated, or result in slightly different terminology. Coded By: Caroline Ross Date Saved: 01/19/2017 11:28 am Normal [facility] Vital Signs Date Time Vital Sign Value Performing Clinician Facility 06-29-2023 05:34-0400 SaO2% (BldA) [Mass fraction] 96 % SHAINA JANE [facility] Comment on above: Performed By: #### VBG #### [facility] ([id number]) [address] [place] [address], [place] [address] 03-25-2023 09:12-0500 Body height 165.1 cm Divya Galloway MD Work Phone: [facility] 03-25-2023 09:12-0500 Body mass index (BMI) [Ratio] 29.79 kg/m2 Divya Galloway MD Work Phone: [facility] 03-25-2023 09:12-0500 Body temperature 97.81 [degF] Divya Galloway MD Work Phone: [facility] 03-25-2023 09:12-0500 Body weight 81.19 kg Divya Galloway MD Work Phone: [facility] 03-25-2023 09:12-0500 Diastolic blood pressure 93 mm[Hg] Divya Galloway MD Work Phone: [facility] 03-25-2023 09:12-0500 Heart rate 57 /min Divya Galloway MD Work Phone: [facility] 03-25-2023 09:12-0500 Respiratory rate 18 /min Divya Galloway MD Work Phone: [facility] 03-25-2023 09:12-0500 SaO2% (BldA) [Mass fraction] 99 % Divya Galloway MD Work Phone: [facility] 03-25-2023 09:12-0500 Systolic blood pressure 142 mm[Hg] Divya Galloway MD Work Phone: [facility] Encounters Encounter Date Encounter Type Care Provider Facility Start: 07-20-2023 ambulatory Joseph Jasmine acility:[facility] Start: 07-13-2023 End: 07-14-2023 Emergency department patient visit CHEN BOCANEGRA [facility] Start: 07-05-2023 End: 07-05-2023 ambulatory DONNA MONTANO Not Available Start: 06-29-2023 End: 06-29-2023 Emergency department patient visit [facility] Start: 06-27-2023 End: 06-27-2023 Emergency department patient visit [facility] Start: 06-20-2023 End: 06-20-2023 ambulatory [facility] Start: 04-14-2023 [facility] Start: 04-12-2023 End: 04-29-2023 ambulatory [facility] Start: 03-25-2023 End: 03-25-2023 Orders Only Donna Macias [place] [facility] - [facility] Comment on above: Endometrial cancer d etermined by uterine biopsy ([facility]) (Primary Dx); Other cirrhosis of liver ([facility]); Thrombocytopenia ([facility]) Start: 03-25-2023 End: 03-25-2023 Office outpatient visit 25 minutes Divya Galloway MD Work Phone: [facility] Hankins [facility] - [facility] On[facility] Comment on above: Thrombocytopenia ( S-HCC) (Primary Dx); Endometrial cancer determined by uterine biopsy ([facility]); Other cirrhosis of liver ([facility]) Start: 03-23-2023 End: 03-24-2023 ambulatory SRIDHAR FORMAN [facility] Start: 03-17-2023 Telephone encounter [facility] Start: 02-15-2022 End: 02-15-2022 ambulatory BLANCA GRANT [facility] Start: 10-30-2021 End: 10-30-2021 ambulatory MICHELLE REBOLLAR Facility:[facility] Start: 10-15-2021 End: 10-15-2021 ambulatory MICHELLE REBOLLAR Facility:[facility] Start: 09-07-2021 End: 09-08-2021 ambulatory [facility] Start: 09-07-2021 End: 09-10-2021 ambulatory [facility] Start: 09-07-2021 End: 09-07-2021 Subsequent hospital visit by physician Michelle Rebollar Work Phone: [facility] Comment on above: Hepatomegaly; Splenomegaly; Thrombocytopenia (HCC) Start: 07-15-2021 End: 07-15-[address] GENNA SUTHERLAND Facility:[facility] Start: 03-04-2021 End: 03-04-[address] DOCTOR OROZCO Facility: Start: 06-16-2017 End: 06-17-2017 Ambulatory Vincenzo Townsend Facility:[facility] Start: 01-13-2017 End: 01-14-2017 Ambulatory Vincenzo Townsend Facility:[facility] Procedures Date Procedure Procedure Detail Performing Clinician Start: 03-25-2023 Follow-up visit Follow-up DIVYA DE LEON Start: 03-07-2022 Adult depression scr eening assessment Francine Rai Start: 09-07-2021 Acute hepatitis panel J robert Horowitz [employer] - [employer]IST Work Phone: Start: 09-07-2021 Prothrombin time Miguel A Horowitz [employer] - [employer] SPECIALIST Work Phone: Plan of Treatment Date Care Activity Detail Author Start: 03-25-2024 Adult BMI Screening Adult BMI Screening [facility] Start: 12-17-2023 Adult BMI Screening Adult BMI Screening [facility] Start: 12-17-2023 Tobacco Screening Tobacco Screening [facility] Start: 09-23-2023 End: 03-25-2024 CBC W Auto Differential panel - Blood CBC auto differential Lab Routine Endometrial cancer determined by uterine biopsy (CMS-HCC) Other cirrhosis of liver (CMS-HCC) Thrombocytopenia (CMS-HCC) Expected: 09/23/2023 (Approximate), Expires: 03/25/2024 [employer] Comment on above: Expected: 09/23/2023 (Approximate), Expi res: 03/25/2024 Start: 09-23-2023 End: 03-25-2024 Comprehensive metabolic 2000 panel - Serum or Plasma Comprehensive metabolic panel Lab Routine Endometrial cancer determined by uterine biopsy (CMS-HCC) Other cirrhosis of liver (CMS-HCC) Thrombocytopenia (CMS-HCC) Expected: 09/23/2023 (Approximate), Expires: 03/25/2024 [employer] Comment on above: Expected: 09/23/2023 (Approximate), Expi res: 03/25/2024 Start: 09-23-2023 End: 09-23-2023 Patient encounter procedure 09/23/2023 9:00 AM EDT Office Visit [facility] [address] [place] [phone] Divya Galloway MD [address] [place] [address] [facility] - [facility] Start: 04-15-2023 End: 04-15-2023 Patient encounter procedure 04/15/2023 1:00 PM EST Office Visit [facility] [address] [phone] Garry Rome MD [address] [place], [place] [id number] Natalio Uriostegui MD [address] [place] [phone] [facility] Start: 04-12-2023 End: 04-12-2023 Patient encounter procedure 04/12/2023 10:30 AM EST Office Visit Mckenzie Hankins [facility] - [facility] [address] [place] [phone] Shaina Jane PA [address] [place] [address] Mckenzie Macias [place] [facility] Start: 04-07-2023 Adult BMI Follow Up Plan Adult BMI Follow Up Plan [facility] Start: 03-25-2023 End: 03-25-2024 US Abdomen limited Ultrasound abdomen limited Imaging Routine Other cirrhosis of liver ([facility]) Expected: 03/25/2023, Expires: 03/25/2024 [facility] Work Phone: Comment on above: Expected: 03/25/2023, Expires: Start: 03-25-2023 End: 03-25-2023 Patient encounter procedure [facility] Start: 03-07-2023 Depression Screening Depression Screening [facility] Start: 09-01-2023 Influenza vaccination Influenza Vaccine [facility] Start: 10-29-2021 Influenza vaccination Flu vaccine (#1) [facility] Start: 11-21-2020 COVID-19 Vaccine (3 - Moderna risk series) COVID-19 Vaccine (3 - Moderna risk series) [facility] Start: 12-20-2015 Screening for malignant neoplasm of breast Breast cancer screen [facility] Start: 12-20-2015 Shingles vaccine (1 of 2) Shingles vaccine (1 of 2) [facility] Start: 2010 Screening for malignant neoplasm of colon [facility] Start: 2005 Lipid panel Lipids [facility] Start: 2000 Diabetes screen Diabetes screen [facility] Start: 12-20-1995 Screening for malignant neoplasm of cervix [facility] Start: 1986 Screening for malignant neoplasm of cervix Pap smear [facility] Start: 1984 Administration of varicella zoster vaccine Zoster (Shingles) Vaccine (1 of 2) [facility] Start: 1984 DTaP,Tdap and Td Vaccines (1 - Tdap) DTaP,Tdap and Td Vaccines (1 - Tdap) [facility] Start: 1984 DTaP/Tdap/Td vaccine (1 - Tdap) DTaP/Tdap/Td vaccine (1 - Tdap) [facility] Start: 12-20-1983 Diabetic foot examination Diabetic Foot Exam [facility] Start: 1980 HIV screening HIV screen [facility] Start: 1977 Depression Screen Depression Screen [facility] Start: 1970 COVID-19 Vaccine (1) COVID-19 Vaccine (1) [facility] Start: 1965 Glaucoma screening Diabetic Ophthalmology Exam [facility] End: 09-07-2021 [id number] w Phenotype [facility] [employer] Phone: Comment on above: 1 Occurrences starting 09/07/2021 until 09/07/2021 End: 09-07-2021 Ceruloplasmin [facility] Work Phone: Comment on above: 1 Occurrences starting 09/07/2021 until 09/07/2021 End: 09-07-2021 CMV by PCR Quantitative [facility] Phone: Comment on above: Once for 1 Occurrences starting 09/08/19 until 09/07/2021 End: 09-07-2021 CMV DNA, quantitative, PCR CMV DNA, quantitative, PCR Lab Routine Hepatomegaly Splenomegaly 1 Occurrences starting 09/07/2021 until 09/07/2021 [employer] Phone: Comment on above: 1 Occurrences starting 09/07/2021 until 09/07/2021 End: 09-07-2021 EBV, Quant. PCR [employer] Phone: Comment on above: Once for 1 Occurrences starting 09/08/19 until 09/07/2021 End: 09-07-2021 Bree-Doherty Virus DNA, Quant PCR Bree-Doherty Virus DNA, Quant PCR Lab Routine Hepatomegaly Splenomegaly 1 Occurrences starting 09/07/2021 until 09/07/2021 [employer] Phone: Comment on above: 1 Occurrences starting 09/07/2021 until 09/07/2021 End: 09-07-2021 Ferritin [Mass/volume] in Serum or Plasma [employer] Phone: Comment on above: 1 Occurrences starting 09/07/2021 until 09/07/2021 End: 09-07-2021 Hepatic function 2000 panel - Serum or Plasma [employer] Phone: Comment on above: 1 Occurrences starting 09/07/2021 until 09/07/2021 End: 09-07-2021 Mitochondrial Antibodies, M2, IgG [employer] Phone: Comment on above: 1 Occurrences starting 09/07/2021 until 09/07/2021 End: 09-07-2021 Nuclear Ab [Titer] in Serum by Immunofluorescence [employer] Phone: Comment on above: 1 Occurrences starting 09/07/2021 until 09/07/2021 End: 09-07-2021 Smooth Muscle Antibody Quant [facility] Phone: Comment on above: 1 Occurrences starting 09/07/2021 until 09/07/2021 End: 09-07-2021 Transferrin [Mass/volume] in Serum or Plasma [employer] Phone: Comment on above: 1 Occurrences starting 09/07/2021 until 09/07/2021 Immunizations Immunization Date Immunization Notes Care Provider Fa cili 12-31-2019 influenza, injectabl e, quadrivalent, preservative free [facility] 12-31-2019 influenza virus vacc ine, unspecified formulation [facility] 10-11-2016 influenza, seasonal, injectable, preservative free [facility] 11-24-2015 influenza, seasonal, injectable, preservative free [facility] 11-21-2013 influenza, seasonal, injectable [facility] Payers Date Payer Category Payer Unknown [employer] [id number] 2023-Present [phone] [address] [place] [address] [id number] 2023 Unknown [id number] 2022 Self-pay 2002 Medicaid [employer] [employer] [employer] [id number] 2002-Present [phone] [address] [place] [address] [id number] 1965 Unknown [id number] 2.16.840.1.191933.3.579.2.175 1965 Unknown [id number] 2.16.840.1.606964.3.579.2.175 1965 Unknown [id number] 2.16.840.1.419415.3.579.2.593 1965 Unknown [id number] 2.16.840.1.206072.3.579.2.593 1965 Unknown [id number] 2.16.840.1.116556.3.579.2.593 1965 Unknown [id number] 2.16.840.1.789501.3.579.2.593 1965 Unknown [id number] 2.16.840.1.282122.3.579.2.1286 1965 Unknown [id number] 2.16.840.1.983096.3.579.2.1259 1965 Unknown [id number] 2.16.840.1.831395.3.579.2.1286 1965 Unknown [id number] 2.16.840.1.021411.3.579.2.1286 1965 Unknown [id number] 2.16.840.1.408997.3.579.2.1286 1965 Unknown [id number] 2.16.840.1.200445.3.579.2.1286 1965 Unknown [id number] 2.16.840.1.819102.3.579.2.1286 1965 Unknown [id number] 2.16.840.1.634172.3.579.2.1286 1965 Unknown [id number] 2.16.840.1.290570.3.579.2.1286 1959 Unknown [id number] Unknown [id number] 2.16.840.1.189085.3.579.2.531 Social History Date Type Detail Facility Start: 07-22-2021 End: 03-11-2022 Tobacco smoking status NVIS Never smoked tobacco [facility] [facility] Work Phone: Start: 07-22-2021 End: 03-11-2022 Tobacco use and exposure Smokeless tobacco non-user [employer] Phone: Start: 07-22-2021 Alcohol intake Lifetime non-d kelsy (finding) [facility] [employer] Phone: Start: 07-22-2021 History SDOH Alcohol Frequency 1 [facility] [employer] Phone: Start: 1965 Sex Assigned At Not on file [facility] [employer] Phone: Start: 12-16-2022 Alcohol intake 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 No [facility] Are you now , , , , never or living with a partner? [facility] How often to you hav e a drink containing alcohol? Never [facility] How many standard dr inks containing alcohol do you have on a typical day? Patient does not drink [facility] Do you feel stress - tense, restless, nervous, or anxious, or unable to sleep at night because your mind is troubled all the time - these days [OSQ] Very much [facility] [employer] [facility] Start: 03-07-2022 Education 12 [facility] [employer] [facility] Medical Equipment Procedure Code Equipment Code Equipment Origin al Text Equipment Identifier Dates [place] Bn - [id number] - [id number] Start: 11-24-2021 Port Pp Mri Duo 9.5fr - [id number], [id number] FDA Start: 10-31-2019 Comment on above: Description: ARTEM prado EASY TOUCH TWIST LANCETS 30 gauge misc [id number] Start: 03-25-2020 UNIFINE PENTIPS PLUS 31 gauge x 3/16 needle [id number] Start: 03-28-2020 Goals Date Patient Goal Desired Activity /State Personal health goal Comment on above: Formatting of this n ote might be different from the original. Evaluation of progress towards goal: Patient currently independent. Plans to discharge home after kyphoplasty, pending PT/OT evaluation. Clinical Notes 07-15-2021 to 04-14-2023 Telephone Encounter - Marlee Voss CMA - 04/14/2023 3:12 PM ESTTelephone Encounter - Marlee Voss CMA - 04/14/2023 3:12 PM Jordan Lewis RN - 03/25/2023 9:42 AM ESTPatient Instructions Note Date & Type Note Facility 04-14-2023 Miscellaneous Notes Left message for patient to remind them to bring their most current medication list with them to their appointment. documented in this encounter [facility] 04-14-2023 Telephone encounter Note Left message for patient to remind them to bring their most current medication list with them to their appointment. [facility] 03-25-2023 History of Presen t illness Narrative Patient is here for follow up with Dr. Galloway. Orders received for Abd ultrasound to monitor liver cirrhosis in 1-2 months. F/u in 6 months, CBC again. Patient given calendar, verbalized understanding of future appointments. documented in this encounter [facility] 03-25-2023 History of Presen t illness Narrative Images from the original note were not included. 03/25/23 Madhavi Easton is a 57 y.o. year old female seen today in the oncology clinic. Chief Complaint Patient presents with Follow-up History of Present Illness: Ms. Easton is a 57 y.o. female with history of a seizure disorder has been on Depakote for years. Off Depakote 2016. Has been followed by our office for borderline thrombocytopenia and mild lymphocytosis. 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 MMR intact. She is s/p 6 cycles kalispel doublet therapy. Interval history: The patient was diagnosed with stage III endometrial carcinoma in September 2019, recently just finished adjuvant chemotherapy. The patient denies any excessive alcohol exposure. No significant bleedings. No recent infections. Her twin sister has liver cirrhosis. Her biological younger sister was diagnosed with acute leukemia Overall she is doing well over the past year no evidence of easy bruising or significant bleeding. Her uterine cancer is under close surveillance by Gynecology/Oncology. 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 Anxiety Arthritis Asthma Breast injury Chronic kidney disease COPD (chronic obstructive pulmonary disease) ([facility]) Depression Diabetes mellitus type 2, controlled ([facility]) Dry mouth 05/16/2019 STATES DENTIST SAID ALL TEETH ARE FALLING OUT Endometrial cancer ([facility]) 04/05/1989 Epilepsy ([facility]) GERD (gastroesophageal reflux disease) Heart murmur Hyperlipidemia Hypertension IBS (irritable bowel syndrome) Kidney stones Migraines Nosebleed Obesity Other cirrhosis of liver ([facility]) 03/19/2021 Ovarian cancer ([facility]) 2021 Nomore cancer now Pneumonia PONV (postoperative nausea and vomiting) Sinusitis, chronic Sleep apnea CPAP Thrombocytopenia ([facility]) Visual impairment Past Surgical History: Procedure Laterality Date AUGMENTATION VERTEBRAL KYPHOPLASTY SPINE T12; L1; L3 N/A 11/24/2021 Performed by Matthew Messer Jr., MD at [facility] CHOLECYSTECTOMY [place] HYSTERECTOMY / BSO left SENTINAL LYMPH NODE DISSECTION, right pelvic node disection and pelvic washings Bilateral 10/04/2019 Performed by Oscar Marks MD at [facility] DILATION AND CURETTAGE OF UTERUS 2019 EGD N/A 05/14/2019 Performed by Rivera Rivera DO at [facility] HYSTERECTOMY 10/04/2019 INJECTION MEDIAL BRANCH NERVE BLOCK Bilateral C 2/3 3/4 Bilateral 02/02/2019 Performed by Som Mcgee MD at [facility] ARTHROSCOPY Right OOPHORECTOMY 1989 50% OF 1 OVARY REMOVED SHOULDER ARTHROSCOPY Left 06/2008 TONSILLECTOMY child Family History Adopted: Yes Problem Relation Age of Onset Stroke Father Heart disease Father COPD Father Diabetes Father Ovarian cancer Sister Uterine cancer Daughter 29 Endometrial cancer Daughter Ovarian cancer Daughter Cystic fibrosis Son Anesthesia problems Neg Hx Breast cancer Neg Hx Social History Socioeconomic History Marital status: Legally Spouse name: Not on file Number of children: Not on file Years of education: Not on file Highest education level: 12th grade Occupational History Not on file Tobacco Use Smoking status: Never Smokeless tobacco: Never Vaping Use Vaping Use: Never used Substance and Sexual Activity Alcohol use: No Drug use: No Sexual activity: Defer Other Topics Concern Caffeine Use No Social History Narrative Not on file Social Determinants of Health Financial Resource Strain: Low Risk (03/07/2022) Overall Financial Resource Strain (CARDIA) Difficulty of Paying Living Expenses: Not hard at all Food Insecurity: No Food Insecurity (12/16/2022) Hunger Screening Food Insecurity - Worry: Never True Food Insecurity - Inability: Never True Transportation Needs: No Transportation Needs (03/07/2022) PRAPARE - Transportation Lack of Transportation (Medical): No Lack of Transportation (Non-Medical): No Physical Activity: Sufficiently Active (03/07/2022) Exercise Vital Sign Days of Exercise per Week: 7 days Minutes of Exercise per Session: 40 min Stress: Stress Concern Present (03/07/2022) [employer] - Occupational Stress Questionnaire Feeling of Stress : Very much Social Connections: Socially Isolated (03/07/2022) Social Connection and Isolation Panel [NHANES] Frequency of Communication with Friends and Family: Three times a week Frequency of Social Gatherings with Friends and Family: Twice a week Attends Bahai Services: Never Active Member of Clubs or Organizations: No Attends Club or Organization Meetings: Never Marital Status: Interpersonal Safety: Not At Risk (03/07/2022) Humiliation, Afraid, Rape, and Kick questionnaire Fear of Current or Ex-Partner: No Emotionally Abused: No Physically Abused: No Sexually Abused: No Housing Instability: Not on file Allergies Allergen Reactions Alogliptin Benzoate Anaphylaxis Amoxicillin Swelling Throat swelling Amoxicillin Trihydrate Anaphylaxis Augmentin [Amoxicillin-Pot Clavulanate] Swelling THROAT AND TONGUE SWELLING Loratadine Swelling THROAT AND TONGUE SWELLING Motrin [Ibuprofen] Other (See Comments) COAGULATION DISORDER Potassium Clavulanate Anaphylaxis [place] Hives Jardiance [Empagliflozin] Nausea And Vomiting Albuterol Headache Medication List Accurate as of March 25, 2023 11:37 AM. If you have any questions, ask your nurse or doctor. Medications Continued This Visit * albuterol 90 mcg/actuation inhaler Quantity: 18 g Refills: 11 For diagnoses: Moderate persistent asthma without complication Dose: 2 puff Signed by: Dr. Thompson 2 puffs, inhalation, Every 6 hours PRN Commonly known as: PROVENTIL HFA;VENTOLIN HFA * albuterol 2.5 mg /3 mL (0.083 %) nebulizer solution Quantity: 360 mL Refills: 1 For diagnoses: Moderate persistent asthma without complication Signed by: Dr. 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 Thompson 2 puffs, inhalation, 2 times daily Commonly known as: SYMBICORT cyclobenzaprine 10 mg tablet Refills: 0 Commonly known as: FLEXERIL dicyclomine 20 mg tablet Refills: 0 Commonly known as: BENTYL docusate sodium 100 mg capsule Quantity: 30 capsule Refills: 11 For diagnoses: Constipation, unspecified constipation type Dose: 100 mg Signed by: SERGO Ozuna 100 mg, oral, Daily Commonly known as: COLACE EASY TOUCH TWIST LANCETS 30 gauge misc Refills: 0 Generic drug: lancets glipiZIDE 5 mg tablet Refills: 0 Dose: 5 mg Commonly known as: GLUCOTROL insulin aspart U-100 100 unit/mL (3 mL) insulin pen Refills: 0 Commonly known as: NovoLOG LANTUS U-100 INSULIN SUBQ Refills: 0 Dose: 35 Units lidocaine 5 % Quantity: 30 patch Refills: 0 Doctor's comments: If this is not covered by the patient's insurance please point the Pt to [id number] 4% lidocaine patches Dose: 1 patch Signed by: Tani Hahn patch, transdermal, Daily, Remove & Discard patch within 12 hours or as directed by MD Commonly known as: LIDODERM lisinopriL 10 mg tablet Refills: 0 Dose: 10 mg Commonly known as: PRINIVIL,ZESTRIL loperamide 2 mg capsule Quantity: 30 capsule Refills: 0 For diagnoses: Diarrhea, unspecified type Signed by: SERGO Ozuna take 1 capsule by mouth four times a day if needed for diarrhea Commonly known as: IMODIUM meclizine 25 mg tablet Refills: 0 Dose: 12.5 mg Commonly known as: ANTIVERT meloxicam 15 mg tablet Refills: 0 Dose: 15 mg Commonly known as: MOBIC metFORMIN 500 mg tablet Refills: 0 Dose: 1,000 mg Commonly known as: GLUCOPHAGE naloxone 4 mg/actuation spray,non-aerosol nasal spray Quantity: 1 each Refills: 0 Dose: 1 spray Signed by: Tani 4 mg, alternating nares, As needed Commonly known as: NARCAN omeprazole 40 mg capsule Quantity: 30 capsule Refills: 10 Signed by: SERGO Ozuna take 1 capsule by mouth once daily Commonly known as: PriLOSEC phenazopyridine 200 mg tablet Refills: 0 Dose: 200 mg Commonly known as: PYRIDIUM polyethylene glycol 17 gram/dose powder Quantity: 527 g Refills: 3 For diagnoses: Constipation in female, Endometrial cancer determined by uterine biopsy ([facility]) Dose: 17 g Signed by: SERGO Yan 17 g, oral, 2 times daily Commonly known as: GLYCOLAX primidone 50 mg tablet Refills: 0 Dose: 50 mg Commonly known as: MYSOLINE prochlorperazine 10 mg tablet Quantity: 60 tablet Refills: 2 For diagnoses: Nausea Signed by: SERGO Ozuna take 1 tablet by mouth every 6 hours if needed for nausea or vomiting Commonly known as: COMPAZINE simvastatin 40 mg tablet Refills: 0 Dose: 40 mg Commonly known as: ZOCOR spironolactone 50 mg tablet Quantity: 90 tablet Refills: 0 Signed by: SEUN Rucker take 1 tablet by mouth once daily Commonly known as: ALDACTONE UNIFINE PENTIPS PLUS 31 gauge x 3/16 needle Refills: 0 Generic drug: pen needle, diabetic VITAMIN D2 1,250 mcg (50,000 unit) capsule Refills: 0 Dose: 50,000 Units Generic drug: ergocalciferol * This list has 2 medication(s) that are the same as other medications prescribed for you. Read the directions carefully, and ask your doctor or other care provider to review them with you. Review of Symptoms: Review of Systems Constitutional: Positive for fatigue. Negative for chills, fever and unexpected weight change. HENT: Negative for hearing loss, mouth sores, sore throat and tinnitus (RINGING IN EARS). Eyes: Negative. Negative for visual disturbance. Respiratory: Negative for wheezing. Cardiovascular: Negative for palpitations and leg swelling. Gastrointestinal: Positive for diarrhea and nausea. Negative for blood in stool and vomiting. Endocrine: Negative. Genitourinary: Negative for difficulty urinating, dysuria, frequency, hematuria and urgency. Musculoskeletal: Positive for arthralgias and back pain. Negative for joint swelling. Skin: Negative. Negative for rash and wound. Allergic/Immunologic: Negative. Neurological: Positive for dizziness, numbness and headaches. Negative for tremors, seizures and weakness. Hematological: Negative. Does not bruise/bleed easily. Psychiatric/Behavioral: Positive for sleep disturbance. Negative for agitation, confusion and decreased concentration. The patient is nervous/anxious. All other systems reviewed and are negative. ECO- Asymptomatic Physical Exam: General: Well appearing, in no acute distress. Vitals: BP (!) 142/93 Pulse 57 Temp 36.6 C (97.8 F) (Oral) Resp 18 Ht 165.1 cm (5' 5 ) Wt 81.2 kg (179 lb) LMP 09/18/2019 SpO2 99% BMI 29.79 kg/m Body mass index is 29.79 kg/m . Eyes: No icterus, no conjuctival erythema Lymph nodes: No palpable adenopathy cervical and axillary area. Respiratory: Respirations were non-labored. Lungs are clear to auscultation no wheezes or rhonchi. Cardiac: Regular rate and rhythm, S1 and S2 sounds were normal. There were no rubs or gallops. Abdomen: Soft, non-tender, Nondistended. Extremities: There was no clubbing, Cyanosis, edema. No signs of thrombosis over right forearm. Skin: No bruises or petechiae. Back exam: No palpable tenderness was appreciated. Neurologic: There was no unilateral weakness. Mood and affect: Normal. Recent Imaging: No results found. Recent Labs: Recent Results (from the past 336 hour(s)) C-peptide Collection Time: 03/23/23 11:37 AM Result Value Ref Range C peptide 4.90 (H) 0.81 - 3.85 ng/mL Vitamin D 25 hydroxy Collection Time: 03/23/23 11:37 AM Result Value Ref Range Vit D, 25-Hydroxy 21.7 (L) 30 - 100 ng/mL Lipid profile Collection Time: 03/23/23 11:37 AM Result Value Ref Range Cholesterol 193 150 - 200 mg/dL Triglycerides 156 (H) 27 - 150 mg/dL HDL Cholesterol 27 (L) >39 mg/dL VLDL 31 (H) 0 - 30 mg/dL LDL (calc) 135 (H) <130 mg/dL Cholesterol:HDL Ratio 7.1 (H) 1.0 - 5.0 Renal panel Collection Time: 03/23/23 11:37 AM Result Value Ref Range Sodium 138 134 - 146 mmol/L Potassium, Bld 4.2 3.5 - 5.0 mmol/L Chloride 102 98 - 109 mmol/L CO2 24 22 - 32 mmol/L Anion gap 12 5 - 15 mmol/L BUN 12 5 - 23 mg/dL Creatinine 0.86 0.40 - 1.00 mg/dL Glucose 406 (HH) 65 - 99 mg/dL Calcium 9.7 8.5 - 10.5 mg/dL Albumin 4.3 3.2 - 5.3 g/dL Phosphorus 3.0 2.4 - 4.9 mg/dL eGFR (CKD-EPI)non-race dependent 79 >59 ml/min/1.73sq.m Microalbumin - Albumin: Creatinine Urine Ratio Collection Time: 03/23/23 11:38 AM Result Value Ref Range Microalbumin urine <0.7 0.0 - 1.9 mg/dL Urine creat 81.94 mg/dL Alb/creat ratio NOT CALCULATED 0.0 - 30.0 mg/g creat Diagnosis Problem list: Problem List Items Addressed This Visit Digestive Other cirrhosis of liver (CMS-HCC) Genitourinary Endometrial cancer determined by uterine biopsy (CMS-HCC) Hematopoietic and Hemostatic Thrombocytopenia (CMS-HCC) - Primary Impression: Borderline thrombocytopenia Easy bruising likely due to aspirin exposure Stage IIIA endometrioid carcinoma, status post surgery and adjuvant chemotherapy 03/2020 Liver cirrhosis unknown etiology Plan: Blood work showed stable platelet count ranging between 100-130 K. Patient did very well during adjuvant chemotherapy. Patient's platelet count has been stable over the past year close to 100 K. There is no significant change in her platelet count very Her recent CT scan showed a cirrhotic appearance of the liver. Her last ultrasound of the liver was back in August 2021. I suspect her borderline thrombocytopenia is due to liver cirrhosis and hypersplenism. No intervention needed, continue observation. Abd ultrasound to monitor liver cirrhosis in 1-2 months. F/u in 6 months, CBC again. Thank you. Divya Galloway MD Please note that portions of this note were generated using voice recognition xCloud dictation software. Although every effort was made to ensure the accuracy of this automated shadowgraph operator, some errors in shadowgraph operator may have occurred. CC: Patient Care Team: Michelle Rebollar PA-C as PCP - General (Physician Chair And Couch Maker) Peter Smith DO as Consulting Physician (Psychiatry) Janette Stone DO as Referring Physician (Neurology) Divya Galloway MD as Consulting Physician (Hematology) SERGO Conway as Physician Chair And Couch Maker (Gynecologic Oncology) Oscar Marks MD as Referring Physician (Gynecologic Oncology) China Black [facility] as Genetic Counselor (Oncology) Lia Ramirez RN as Registered Nurse Matthew Messer Jr., MD as Surgeon (Orthopedic Surgery) PCP:MICHELLE REBOLLAR Referring MD: Michelle Rebollar PA-C documented in this encounter [facility] 03-25-2023 Instructions Divya Galloway MD - 03/25/2023 9:15 AM EST Abd ultrasound to monitor liver cirrhosis in 1-2 months. F/u in 6 months, CBC again. documented in this encounter [facility] 03-17-2023 Miscellaneous Notes T/C to pt to reschedule her 03-25-23 PPC appt d/t BD sched change. No answer, unable to LMOM, LMOM for Christopher fuchs, Emergency contact, to have his mom call our office. documented in this encounter [facility] 03-17-2023 Telephone encounter Note T/C to pt to reschedule her 03-25-23 PPC appt d/t BD sched change. No answer, unable to LMOM, LMOM for Christopher fuchs, Emergency contact, to have his mom call our office. [facility] 02-15-2022 Note Plastic surgery offi ce note [...] for evaluation by the plastic surgeon in [place] who also could not perform her nasal [...] was examined in the presence of a flying instructor and the resident Vital signs stable, afebrile [...] findings and he complains are rather vague. [facility] 07-15-2021 Note PROCEDURE: XR FOOT R T [...] authenticated by: CASSY JOHNSTON Date: 2021-07-15 14:31 [facility] 07-15-2021 Note PROCEDURE: XR FOOT R T [...] authenticated by: CASSY JOHNSTON Date: 2021-07-15 14:31 [facility] 07-15-2021 Note PROCEDURE: XR FOOT R T [...] by: CASSY JOHNSTON Date: 2021-07-15 14:31 [facility] Evaluation note Diagnosis Hepatomegaly Splenomegaly Thrombocytopenia (HCC) Thrombocytopenia, unspecified documented in this encounter [employer] Phone: evaluation note* Diagnosis Endometrial cancer determined by uterine biopsy (CMS-HCC)- Primary Other cirrhosis of liver (CMS-HCC) Thrombocytopenia (CMS-HCC) Unspecified thrombocytopenia documented in this encounter [facility] SystemEvaluation note* Diagnosis Thrombocytopenia (CMS-HCC)- Primary Unspecified thrombocytopenia Endometrial cancer determined by uterine biopsy (CMS-HCC) Other cirrhosis of liver (CMS-HCC) documented [facility] SystemInstructionsNot on filedocumented in this encounter [facility] SystemInstructionsNot on filedocumented in this encounter [facility] Summary Purpose Family History No Family History Records FoundNo Family History Records FoundNo Family History Records FoundNo Family History Records FoundNo Family History Records FoundNo Family History Records FoundNo Family History Records FoundNo Family History Records Found Advance Directives No Advanced Directives Records FoundLatest Code Status on File Code Status Date Activated Date Inactivated Comments Full Code 11/21/2021 8:16 AM 11/25/2021 7:32 PM Code Status History Code Status Date Activated Date Inactivated Comments Full Code 10/04/2019 12:01 PM 10/05/2019 2:14 PM Additional Source Comments INFORMATION SOURCE (unrecogn ized section and content) DATE CREATED AUTHOR 08/18/2017 [facility] DATE CREATED AUTHOR AUTHOR'S ORGANIZ ATION 09/20/2021 [facility] DATE CREATED AUTHOR AUTHOR'S ORGANIZ ATION 11/02/2021 [facility] DATE CREATED AUTHOR AUTHOR'S ORGANIZ ATION 02/19/2022 [facility] DATE CREATED AUTHOR AUTHOR'S ORGANIZ ATION 06/21/2023 [facility] DATE CREATED AUTHOR AUTHOR'S ORGANIZ ATION 07/06/2023 [facility] DATE CREATED AUTHOR AUTHOR'S ORGANIZ ATION 07/15/2023 [facility] DATE CREATED AUTHOR AUTHOR'S ORGANIZ ATION 07/23/2023 [facility] Care Teams (unrecognized sec tion and content) Insurance Coordinator Relationship Specialty Start Date End Date Michelle Rebollar [address] [place] [address] PCP - General 07/22/21 Insurance Coordinator Relationship Specialty Start Date End Date Michelle Rebollar PA-C [address] [place], [place] [id number] PCP - General Physician Chair And Couch Maker 07/10/20 Insurance Coordinator Relationship Specialty Start Date End Date Michelle Rebollar PA-C [address] [place], [place] [id number] PCP - General Physician Chair And Couch Maker 07/10/20 Reason for Visit (unrecogniz ed section and content) Reason Comments Follow-up FOR RECORDS PERTAINING TO PATIENTS WHO ARE [...] BE BASED ON THE PRIMARY CLINICAL RECORDS. [facility] [employer] provides no warranty or guarantee of the accuracy or completeness of information in this document.
--- NOTE | 2023-07-28 12:25 | ED_ITS ---
HPI HPI - Back Pain/Injury General Chief Complaint: Back Pain/Injury Stated Complaint: BACK PAIN Time Seen by Provider: 07/28/23 12:22 Source: patient Mode of arrival: walk-in Limitations: no limitations History of Present Illness HPI Narrative: Patient is here complaining of injuring her back at home a couple days ago. She fell down some stairs. She has had previous extensive surgery repair on her back. She does not have any loss of feeling to her extremities. She has minor discomfort in her neck area. No headache. She does not have bowel or bladder dysfunction or incontinence at all. She is not on any anticoagulation therapy or antiplatelet therapy. She says she was uncomfortable at night sleeping. She normally has some discomfort but seems to be more in her mid back since she fell. Related Data Home Medications ?Medication ?Instructions ?Recorded ?Confirmed alprazolam 0.25 mg tablet 0.25 mg PO TID PRN anxiety 09/03/22 02/02/23 glipizide 5 mg tablet, extended 5 mg PO DAILY 09/03/22 02/10/23 release 24 hr insulin glargine 100 unit/mL (3 1 unit subcut DAILY 09/03/22 02/02/23 mL) subcutaneous pen (Lantus Solostar U-100 Insulin) metformin 500 mg tablet 500 mg PO BID 09/03/22 02/10/23 spironolactone 50 mg tablet 50 mg PO DAILY 09/03/22 02/10/23 prochlorperazine maleate 10 mg 10 mg PO DAILY PRN anxiety 02/10/23 02/10/23 tablet Previous Rx's ?Medication ?Instructions ?Recorded hyoscyamine sulfate 0.125 mg 0.125 mg PO Q6H PRN abdominal pain 02/03/23 sublingual tablet (Levsin/SL) #20 tabs ondansetron 4 mg disintegrating 4 mg PO Q6H PRN nausea and 02/03/23 tablet vomiting #20 tabs acetaminophen 325 mg capsule 325 mg PO Q6H PRN fever or pain 03/05/23 (Tylenol) #60 caps ondansetron 4 mg disintegrating 4 mg PO Q8H PRN nausea and 03/05/23 tablet vomiting 4 days #10 tabs Allergies Allergy/AdvReac Type Severity Reaction Status Date / Time Penicillins Allergy Unknown Verified 02/11/23 14:17 albuterol Allergy Swelling Verified 02/11/23 14:17 of Lip/Tongue/Throat empagliflozin AdvReac Mild Nausea Verified 02/11/23 14:17 [From Jardiance] amoxicillin AdvReac Verified 02/11/23 14:17 ibuprofen [From Motrin] AdvReac Verified 02/11/23 14:17 loratadine AdvReac Verified 02/11/23 14:17 Opioid HPI Opioid Management Most Recent Opioid Data: Last Pain Scale 10 07/28/23 11:58 PFSH PFSH Medical History (Updated 07/28/23 @ 13:30 by Kevin Arce MD) Hx of ovarian cancer ?Z85.43 - Personal history of malignant neoplasm of ovary (ICD-10) Hx of cervical cancer ?Z85.41 - Personal history of malignant neoplasm of cervix uteri (ICD-10) Hx of renal calculi ?Z87.442 - Personal history of urinary calculi (ICD-10) History of COPD ?Z87.09 - Personal history of other diseases of the respiratory system (ICD- 10) IDDM (insulin dependent diabetes mellitus) Hx of gastroesophageal reflux (GERD) ?Z87.19 - Personal history of other diseases of the digestive system (ICD-10) Hx of cardiac murmur ?Z86.79 - Personal history of other diseases of the circulatory system (ICD- 10) Hypertension ?I10 - Essential (primary) hypertension (ICD-10) Hx of irritable bowel syndrome ?Z87.19 - Personal history of other diseases of the digestive system (ICD-10) History of asthma ?Z87.09 - Personal history of other diseases of the respiratory system (ICD- 10) Hx of sleep apnea ?Z86.69 - Personal history of other diseases of the nervous system and sense organs (ICD-10) Surgical History (Updated 09/18/22 @ 13:40 by Sarbjit Kauffman) Hx of tonsillectomy ?Z90.89 - Acquired absence of other organs (ICD-10) Hx laparoscopic cholecystectomy ?Z90.49 - Acquired absence of other specified parts of digestive tract (ICD- 10) Hx of arthroscopy of shoulder ?Z98.890 - Other specified postprocedural states (ICD-10) Hx of unilateral oophorectomy ?Z90.721 - Acquired absence of ovaries, unilateral (ICD-10) History of loop electrosurgical excision procedure (LEEP) ?Z98.890 - Other specified postprocedural states (ICD-10) Social History Smoking status: Never smoker Exam Narrative Exam Narrative: Patient is awake alert does not appear an extremis. Her vitals are no and are stable. She moves about with very little hesitation but is a little bit slow to sit up in the bed. Examination of her back despite having previous extensive back surgery her scarring is minimal and you can hardly tell at looking at her back that she has had previous surgery. There is no gross kyphoscoliosis. She has most of her tenderness in the Thoracic area but no bruising hematoma or evidence of injury. Same as noted in the lower lumbar area with no obvious evidence of injury or. Pain. She does not have her rhythmic radiculopathy. Movement of the hips knees and lower extremity is unrestricted and nontender. She has no pain with palpation over calvarium or head or neck area. Constitutional Vital Signs, click to edit/add: Last Vital Signs Temp 98.1 F 07/28/23 11:52 Pulse 60 07/28/23 11:52 Resp 18 07/28/23 11:52 BP 127/79 07/28/23 11:52 Pulse Ox 100 07/28/23 11:52 O2 Del Method Room Air 07/28/23 11:52 Course Vital Signs Vital signs: Vital Signs Temperature 98.1 F 07/28/23 11:52 Pulse Rate 60 07/28/23 11:52 Respiratory Rate 18 07/28/23 11:52 Blood Pressure 127/79 07/28/23 11:52 Pulse Oximetry 100 07/28/23 11:52 Oxygen Delivery Method Room Air 07/28/23 11:52 Temperature 98.1 F 07/28/23 11:52 Pulse Rate 60 07/28/23 11:52 Respiratory Rate 18 07/28/23 11:52 Blood Pressure 127/79 07/28/23 11:52 Pulse Oximetry 100 07/28/23 11:52 Oxygen Delivery Method Room Air 07/28/23 11:52 MDM - Back Pain/Injury MDM Narrative Medical decision making narrative: This patient is stiff and sore after a fall about [address] imaging of the LS spine does not show any acute fractures or traumatic events. Equally benign with her thoracic spine x-rays. At this stage alternating cold packs with ice can be helpful as well as NSAIDs. Discharge Plan Discharge Stand Alone Forms: Portal Instructions Chief Complaint: Back Pain/Injury Clinical Impression: Lumbar contusion, Thoracic back pain Patient Disposition: Home, Self-Care Time of Disposition Decision: 13:30 Prescriptions / Home Meds: No Action metformin 500 mg tablet 500 mg PO BID glipizide 5 mg tablet extended release 24hr 5 mg PO DAILY alprazolam 0.25 mg tablet 0.25 mg PO TID PRN (Reason: anxiety) spironolactone 50 mg tablet 50 mg PO DAILY insulin glargine [Lantus Solostar U-100 Insulin] 100 unit/mL (3 mL) insulin pen 1 unit SUBCUT DAILY prochlorperazine maleate 10 mg tablet 10 mg PO DAILY PRN (Reason: anxiety) acetaminophen [Tylenol] 325 mg capsule 325 mg PO Q6H PRN (Reason: fever or pain) Qty: 60 0RF ondansetron 4 mg tablet,disintegrating 4 mg PO Q8H PRN (Reason: nausea and vomiting) 4 Days Qty: 10 0RF ondansetron 4 mg tablet,disintegrating 4 mg PO Q6H PRN (Reason: nausea and vomiting) Qty: 20 0RF hyoscyamine sulfate [Levsin/SL] 0.125 mg tablet, sublingual 0.125 mg PO Q6H PRN (Reason: abdominal pain) Qty: 20 0RF Print Language: Slovak Additional Instructions: Alternate cold and warm packs/may use [id number] NSAIDs if there are no allergies. Referrals: Aubrey Salazar [Primary Care Provider] - 1 week
--- NOTE | 2023-07-28 12:27 | CT_ITS ---
The [address] [address] Patient Name: KATELYN KHAN MRN: [id number] date: 1965 Sex: F Assigned Patient Location: ER Current Patient Location: ER Accession/Order Number: [id number] Exam Date: 07/28/2023 12:32 Report Date: 07/28/2023 13:22 At the request of: EAN PRICE Procedure: CT lumbar spine wo con EXAMINATION: CT lumbar spine wo con HISTORY: Fall COMPARISON: No relevant comparison available. TECHNIQUE: Axial, Coronal, and Sagittal CT images were created without I.V. contrast material. Dose reduction techniques were achieved by using automated exposure control and/or adjustment of mA and/or kV according to patient size and/or use of iterative reconstruction technique. FINDINGS: PARASPINAL AREA: Normal with no visible mass. Moderate aortic atherosclerosis BONES: Normal alignment with no acute fracture or spondylolisthesis. Kyphoplasty T12, L1 and L3 levels with no extension beyond the visualized cortical margins DISC LEVELS: 12-L1: Early degenerative disc disease is present without focal protrusion or neural impingement. L1-L2: No significant disc/facet abnormality, spinal stenosis, or foraminal stenosis. L2-L3: Early degenerative disc disease is present without focal protrusion or neural impingement. L3-L4: No significant disc/facet abnormality, spinal stenosis, or foraminal stenosis. L4-L5: No significant disc/facet abnormality, spinal stenosis, or foraminal stenosis. L5-S1: No significant disc/facet abnormality, spinal stenosis, or foraminal stenosis. CT/CT lumbar spine wo con IMPRESSION: No acute radiographic abnormality Electronically authenticated by: JORDAN CHRISTIANSON Date: 07/28/2023 13:22
--- NOTE | 2023-07-28 12:27 | XR_ITS ---
The [address] [address] Patient Name: KATELYN KHAN MRN: [id number] date: 1965 Sex: F Assigned Patient Location: ER Current Patient Location: ER Accession/Order Number: [id number] Exam Date: 07/28/2023 12:32 Report Date: 07/28/2023 13:18 At the request of: EAN PRICE Procedure: XR thoracic spine 3V EXAMINATION: XR thoracic spine 3V HISTORY: Fall COMPARISON: No relevant comparison available. FINDINGS: BONES: Mild dextrocurvature. Kyphoplasty at T12 and L1. Mild degenerative spondylosis. DISC SPACES: Normal. No significant disc height narrowing, subluxation, or endplate abnormality. PARASPINOUS: Negative. No paraspinous abnormality is seen. OTHER: Negative. XR/XR thoracic spine 3V IMPRESSION: No acute abnormality Electronically authenticated by: JORDAN CHRISTIANSON Date: 07/28/2023 13:18
[2023-07-28 12:36] LABS: Bilirubin Urine NEGATIVE (NEGATIVE); Blood Urine TRACE-I (NEGATIVE); Clarity Urine CLEAR (CLEAR); Color Urine LT. YELLOW (YELLOW); Glucose Urine UA >=1000 mg/dL (NEGATIVE); Ketones Urine NEGATIVE (NEGATIVE); Leukocyte Esterase Urine NEGATIVE (NEGATIVE); Nitrite Urine NEGATIVE (NEGATIVE); Protein Urine NEGATIVE (NEG/TRACE); Urobilinogen Urine 0.2 EU/dL (0.2-1.0); pH Urine 5.5 (5.0-9.0)
[2023-07-28 12:59] LABS: Bacteria Urine NONE SEEN #/HPF (NONE SEEN); Cast Seen? NONE SEEN #/LPF (NONE SEEN); Crystals Seen? None Seen #/HPF (None Seen); Mucus Urine NONE SEEN (NONE SEEN); RBC Urine 0-2 #/HPF (0-2); Squamous Epithelial Cell Urine NONE SEEN #/LPF (NONE/RARE); WBC Urine NONE SEEN #/HPF (NONE SEEN)
== END 2023-07-28 13:57 | disposition home or self-care (01) ==
PROVIDERS: Emergency Provider Emergency Medicine Emergency Medical Services
DX: M54.6 Pain in thoracic spine (principal); S30.0XXA Contusion of lower back and pelvis, initial encounter; W10.9XXA Fall (on) (from) unspecified stairs and steps, initial encounter
CPT/HCPCS: 72072; 72131; 81001; 99285

== ENCOUNTER 2024-12-17 23:54 | Emergency (ER) | payer OTHER, SELFPAY ==
--- OUTSIDE RECORDS SUMMARY | 2024-12-18 00:08 | XMS_ITS | CCD ---
Author Organization [facility] CliniSyct Care Team Providers Care [employer] Name Role Phone Rice, Vincenzo W Unavailable Unavailable Rice, Vincenzo W Unavailable Unavailable Rice, Vincenzo W Unavailable Unavailable NONE, XXXX Unavailable Unavailable Rice, Vincenzo W Unavailable Unavailable Rice, Vincenzo W Unavailable Unavailable Rice, Vincenzo W Unavailable Unavailable NONE, XXXX Unavailable Unavailable [facility] Primary Care Provider EMERY HOROWITZ Referring Unavailabl e KETURAH, [facility] Primary Care Unavailable EMERY HOROWITZ Referring Unavailabl e KETURAH, [facility] Primary Care Unavailable [facility], DR BOB Primary Care Unavailable TRANG DORANTES Admitting Unavailable TRANG DORANTES Attending Unavailable TRANG DORANTES Consulting Unavailable ENA, DR VAIL Admitting Unavailable HAY, DR VALI Attending Unavailable KETURAH, [facility] Primary Care Unavailable LITTLE ROCK, DR JORDAN Mary Consulting Unavailable ZIEBER, DR CASSY Cedeno Consulting Unavailable SERGO ENCARNACION Consulting Unavailable [facility] Primary Care Unavailable REINECK, DR KEVIN Valdes Admitting Unavailabl e REINECK, DR KEVIN Valdes Attending Unavailabl e REINECK, DR KEVIN Valdes Consulting [facility]abl [facility] Unavailable REINECK, DR KEVIN Valdes Admitting Unavailabl e REINECK, DR KEVIN Valdes Attending Unavailabl e REINECK, DR KEVIN Valdes Consulting Unavailabl e BLANCA GRANT Attending Unavailable DONNA MONTANO Attending Unavailable SHAINA JANE [facility] Unavailable ASSIDEBBIEKARIA Admitting Unavailable ASSIDEBBIEKARIA Attending Unavailable SOM VALENZUELA Referring Unavailable [facility] Primary Care Unavailable Services, [facility] Primary Care Provider Keturah PA-C, [facility] Primary Care Provider [phone] Keturah PA-C, [facility] Primary Care Provider [phone] Keturah PA-C, [facility] Primary Care Provider Lucia Olmos APRN Primary Care Provide r Pedro Russ MD Attending Provider Lucia Olmos Primary Care Unavailab le Asaad, Imnikki Attending Unavailable Asaad, Imad Admitting Unavailable Services, [facility] Care Provider ALONZO TORREZ Attending Unavailable SERVICES, [facility] Unava ilable YODIT CUBA Attending Unavailable SERVICES, [facility] Unava ilable Joseph Rodriguez Admitting Unavailab le Joseph Rodriguez Attending Unavailab Elvira Jamison Primary Care Unavailable SOM VALENZUELA Attending Unavailable KETURAH, MICHELLE Referring Unavailable KET[place], [facility] Primary Care Unavailable DIVYA GALLOWAY Attending Unavailable DIVYA GALLOWAY Referring Unavailable [place], [facility] Primary Care Unavailable SOM VALENZUELA Referring Unavailable KET[place]AH, [facility] Primary Care Unavailable SOM VALENZUELA Referring Unavailable [place], [facility] Primary Care Unavailable [facility] Primary Care Unavailable JAMES DAVILA Attending Unavailable ALONZO TORREZ Consulting Unavailable KALA BARON T Admitting Unavailable SERVICES, [facility] Unava ilable GAVIOTA HAYES Attending Unavailable YONY BEE Referring Unavailable SERVICES, [facility] Unava ilable PEDRO RUSS Referring Unavailable SERVICES, [facility] Unava ilable DIVYA GALLOWAY Referring Unavailable SERVICES, [facility] Unava ilable ASHLEY FRANCISCO Attending Unavailable KETURAH, MICHELLE Referring Unavailable SERVICES, [facility] Unava ilable CAM CUBASSICA A Referring Unavailable SERVICES, [facility] Unava ilable CAM CUBASSICA Lilly Attending Unavailable CUBA, YODIT A Referring Unavailable SERVICES, [facility] Unava ilable SERVICES, [facility] Unava ilable JERARDO ROMO Admitting Unavailable JERARDO ROMO Attending Unavailable JERARDO ROMO Referring Unavailable SERVICES, [facility] Unava ilable SERVICES, [facility] Primary Care Unava ilable JERARDO ROMO Admitting Unavailable JERARDO ROMO Attending Unavailable JERARDO ROMO Referring Unavailable SERVICES, [facility] Primary Care Unava ilable SERVICES, [facility] Primary Care Unava ilable CHEN GUZMÁN Attending Unavailable Allergies Allergy Classification Reported Allergen(s) Allergy Type Date of Onset Reaction(s) Facility (20 sources) albuterol; 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: [albuterol] Drug Allergy 5 Headaches, Headache [facility] Repository (20 sources) amoxicillin; 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: [amoxicillin] Drug Allergy 7 Swelling [facility] Repository (20 sources) ibuprofen; 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: [ibuprofen] Drug Allergy 7 Other (See Comments) [facility] Repository (20 sources) loratadine; 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: [loratadine] Drug Allergy 7 Swelling [facility] Repository (1 source) [place]; 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: [Strawberries] Food allergy (disorder) [facility] Repository (20 sources) empagliflozin; 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: [EMPAGLIFLOZIN] Drug Allergy 0 Nausea And Vomiting [employer] Work Phone: (20 sources) strawberry allergenic extract; 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: [STRAWBERRY] Drug Allergy 7 Hives [employer] Phone: (20 sources) Amoxicillin-Pot Clavulanate; 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: [AMOXICILLIN-POT CLAVULANATE] Propensity to adverse reactions to drug 7 Swelling [employer] Phone: (6 sources) alogliptin; 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: [ALOGLIPTIN] Drug Allergy 2 Anaphylaxis [facility] Repository (1 source) Amoxicillin / Clavulanate Drug Allergy 5 [facility] Repository (1 source) empagliflozin Drug Allergy [facility] Repository (1 source) Ibuprofen Drug Allergy [facility] Repository (1 source) Penicillins Drug allergy (disorder) [facility] Repository (1 source) strawberry allergenic extract Drug Allergy 5 [facility] Repository (20 sources) alogliptin; 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: [ALOGLIPTIN BENZOATE] Drug Allergy 2 Anaphylaxis [facility] Repository (20 sources) POTASSIUM CLAVULANATE; 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: [POTASSIUM CLAVULANATE] Propensity to adverse reactions to drug (disorder) 2 Anaphylaxis [facility] Repository (1 source) STRAWBERRY FLAVOR; 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: [STRAWBERRY FLAVOR] Propensity to adverse reactions to drug (disorder) 2 [facility] Repository (20 sources) Amoxicillin; 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: [AMOXICILLIN TRIHYDRATE] Drug Allergy 3 Anaphylaxis [facility] Repository (20 sources) Clavulanate; 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: [CLAVULANIC ACID] Drug Allergy 2 Anaphylaxis [facility] Repository (20 sources) alogliptin Drug Allergy 2 Anaphylaxis [facility] (1 source) alogliptin Drug Allergy 5 [facility] Repository (1 source) empagliflozin Drug Allergy 5 [facility] Repository (13 sources) dulaglutide; 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: [DULAGLUTIDE] Drug Allergy 5 [facility] (1 source) Penicillins Drug allergy (disorder) 9 [facility] Repository Medications Current Medications Medication Drug Class(es) [...] 07/15/2021 Active albuterol 0.83 mg/ml inhalation solution (20 sources) beta2-Adrenergic Agonist Start: 06-23-2020 End: 03-27-2024 albuterol (PROVENTIL,VENTOLI N) 2.5 mg /3 mL (0.083 %) nebulizer solution Indications: Moderate persistent asthma without complication inhale contents of 1 vial ( 3 milliliters ) in nebulizer by mouth and INTO THE LUNGS four times a day if needed for wheezing 360 mL 1 06/23/2020 03/27/2024 Discontinued (Therapy completed) Start: 09-06-2019 End: 03-27-2024 take 2 puff(s) by inhalation every six hours as needed for wheezing albuterol (PROVENTIL HFA;VENTOLIN HFA) 90 mcg/actuation inhaler Indications: Moderate persistent asthma without complication Inhale 2 puffs every 6 (six) hours as needed for wheezing. 18 g 11 09/06/2019 03/27/2024 Discontinued (Therapy completed) ALPRAZolam 0.25 mg oral tablet (15 sources) Benzodiazepine Start: 09-15-2022 End: 03-27-2024 take 1 tablet by mouth once daily for anxiety ALPRAZolam (XANAX) 0.25 mg tablet Indications: Anxiety disorder due to medical condition take 1 tablet by mouth nightly if needed for anxiety 30 tablet 2 09/15/2022 03/27/2024 Discontinued (Therapy completed) amitriptyline hydrochloride 25 mg oral tablet (14 sources) Tricyclic Antidepressant take 3 tablets by mouth once daily amitriptyline (ELAVIL) 25 mg tablet Indications: migraine prevention Take 3 tablets (75 mg total) by mouth nightly Indications: migraine prevention. Takes three tablets Active atorvastatin 40 mg oral tablet (15 sources) HMG-CoA Reductase Inhibitor Start: 04-23-2024 take 1 tablet by mouth once daily Atorvastatin 40 mg tablet Active 40 MG PO Daily April 23, 2024 1:00am brexpiprazole 2 mg oral tablet (18 sources) Atypical Antipsychotic Start: 03-14-2024 brexpiprazole (REXULTI) 2 mg tablet Take 1 tablet (2 mg total) by mouth. 03/14/2024 Active Start: 03-14-2024 REXULTI 1 mg t ablet Take 1 tablet (1 mg total) by mouth. 03/14/2024 Active 60 actuat budesonide 0.16 mg/actuat / formoterol fumarate 0.0045 mg/actuat metered dose inhaler (15 sources) Corticosteroid, beta2-Adrenergic Agonist Start: 07-20-2021 take [...] Active cyclobenzaprine hydrochloride 10 mg oral tablet (10 sources) Muscle Relaxant Start: 04-21-2020 cyclobenzaprine (FLEXERIL) 10 mg tablet 04/21/2020 Active dicyclomine hydrochloride 20 mg oral tablet (14 sources) Anticholinergic Start: 04-21-2020 dicyclomine (BENTYL) 20 mg tablet 04/21/2020 Active docusate sodium 100 mg oral capsule (14 sources) Start: 04-07-2022 take 1 capsule by mouth in the morning docusate sodium (COLACE) 100 mg capsule Indications: Constipation, unspecified constipation type Take 1 capsule (100 mg total) by mouth in the morning. 30 capsule 11 04/07/2022 Active 0.5 ml dulaglutide 1.5 mg/ml auto-injector (2 sources) GLP-1 Receptor Agonist Start: 04-23-2024 Dulaglutide (Trulicity) 0.75 mg/0.5 mL pen injector Active 0.75 MG SUBCUT every week April 23, 2024 1:00am ergocalciferol 1.25 mg oral capsule (16 sources) Provitamin D2 Compound Start: 05-14-2020 End: 03-27-2024 take 1 capsule by mouth every week vitamin D (ERGOCALCIFEROL) 1.25 MG (12221 UT) CAPS capsule take 1 capsule by mouth every week 0 07/05/2021 Active FLUoxetine 10 mg oral capsule (15 sources) Serotonin Reuptake Inhibitor Start: 04-23-2024 take 1 capsule by mouth once daily Fluoxetine 10 mg capsule Active 10 MG PO Daily April 23, 2024 1:00am glipiZIDE 5 mg oral tablet (20 sources) Sulfonylurea Start: 04-23-2024 take 1 tablet by mouth twice daily Glipizide 5 mg tablet Active 5 MG PO Twice daily April 23, 2024 1:00am 3 ml insulin aspart, human 100 unt/ml pen injector (14 sources) Insulin Analog Start: 03-26-2020 inject 1 [IU] by subcutaneous injection before mealtime insulin aspart U-100 (NovoLOG) 100 unit/mL (3 mL) insulin pen INJECT 8-10-12 UNITS SUBCUTANEOUSLY BEFORE MEALS PLUS ISS #2 (EXPECT UP TO 40 UNITS DAILY) 03/26/2020 Active insulin glargine 100 unt/ml injectable solution (16 sources) Insulin Analog insulin glargine (LANTUS) 100 unit/mL injection Inject under the skin nightly. Active insulin glargine,hum.rec.an log (LANTUS U-100 INSULIN SUBQ) (14 sources) inject 35 [IU] by subcutaneous injection once daily at bedtime insulin glargine,hum.rec.a nlog (LANTUS U-100 INSULIN SUBQ) Inject 35 Units under the skin once daily at bedtime. Active inject 35 [IU] by wilkes bcutaneous injection once daily at bedtime insulin glargine,hum.rec.anlog (LANTUS U -100 INSULIN SUBQ) Inject 35 Units under the [...] 07/20/2021 Active lidocaine 0.05 mg/mg medicated patch (15 sources) Antiarrhythmic, Amide Local Anesthetic Start: 11-26-2021 End: 03-27-2024 apply 1 dose transdermal route every twelve hours in the morning lidocaine (LIDODERM) 5 % Place 1 patch on the skin in the morning. Remove & Discard patch within 12 hours or as directed by MD. 30 patch 11/26/2021 03/27/2024 Discontinued (Therapy completed) loperamide hydrochloride 2 mg oral capsule (20 sources) Opioid Agonist Start: 09-18-2021 take 1 capsule by mouth four times daily for diarrhea loperamide (IMODIUM) 2 mg capsule Indications: Diarrhea, unspecified type take 1 capsule by mouth four times a day if needed for diarrhea 30 capsule 09/18/2021 Active meclizine hydrochloride 25 mg chewable tablet (18 sources) Antiemetic End: 06-18-2024 meclizine (ANTIVERT) 25 mg tablet Chew 0.5 tablets (12.5 mg total) and swallow 3 (three) times a day as needed for dizziness. 06/18/2024 Discontinued (Therapy completed) meloxicam 15 mg oral tablet (14 sources) Nonsteroidal Anti-inflammatory Drug Start: 05-08-2020 take 1 tablet by mouth in the morning meloxicam (MOBIC) 15 mg tablet Take 1 tablet (15 mg total) by mouth in the morning. 05/08/2020 Active metFORMIN hydrochloride 500 mg oral tablet (19 sources) Biguanide Start: 07-15-2021 take 1 tablet by mouth twice daily at mealtime metFORMIN (GLUCOPHAGE) 500 MG tablet take 1 tablet by mouth twice a day with meals 0 07/15/2021 Active End: 06-18-2024 metFORMIN (GLUCOPHAGE) 500 m g tablet Indications: type 2 diabetes mellitus Take 2 tablets (1,000 mg total) by mouth in the morning and 2 tablets (1,000 mg total) in the evening. Take with meals. Indications: type 2 diabetes mellitus. 06/18/2024 Discontinued (Therapy completed) naloxone hydrochloride 40 mg/ml nasal spray (6 sources) Opioid Antagonist Start: 11-25-2021 naloxone (NA RCAN) 4 mg/actuation spray,non-aerosol nasal spray Administer 1 spray (4 mg total) into alternating nostrils as needed for opioid reversal. 1 each 11/25/2021 Active naloxone (NARCAN) 4 mg/actuation spray,non-aerosol nasal spray (12 sources) Start: 11-25-2021 End: 06-18-2024 naloxone (NARCAN) 4 mg/actuation spray,non-aerosol nasal spray Administer 1 spray (4 mg total) into alternating nostrils as needed for opioid reversal. 1 each 11/25/2021 06/18/2024 Discontinued (Therapy completed) Start: 11-25-2021 naloxone (NARC AN) 4 mg/actuation spray,non-aerosol nasal spray Administer 1 spray (4 mg total) into alternating nostrils as needed for opioid reversal. 1 each 11/25/2021 Active nystatin 518685 unt/ml oral suspension (3 sources) Polyene Antifungal Start: 06-08-2024 End: 06-18-2024 nystatin (MYCOSTATIN) 100,000 unit/mL suspension Take 5 mL (500,000 Units total) by mouth in the morning and 5 mL (500,000 Units total) at noon and 5 mL (500,000 Units total) in the evening and 5 mL (500,000 Units total) before bedtime. Do all this for 10 days. 200 mL 06/08/2024 06/18/2024 Discontinued (Therapy completed) omeprazole 40 mg delayed release oral capsule (20 sources) Proton Pump Inhibitor Start: 11-05-2024 End: 01-04-2025 take 1 capsule by mouth at bedtime omeprazole (PriLOSEC) 40 mg capsule Take 1 capsule (40 mg total) by mouth in the morning and at bedtime for 60 days. 60 capsule 1 11/05/2024 01/04/2025 Active Start: 09-17-2021 take 1 capsule by mo uth once daily omeprazole (PriLOSEC) 40 mg capsule take 1 capsule by mouth once daily 30 capsule 10 09/17/2021 Active ondansetron 4 mg oral tablet (1 source) Serotonin-3 Receptor Antagonist Start: 03-08-2024 End: 03-27-2024 take 1 tablet by mouth every eight hours as needed for nausea and vomiting ondansetron (ZOFRAN) 4 mg tablet Take 1 tablet (4 mg total) by mouth every 8 (eight) hours as needed for nausea or vomiting for up to 12 doses. 12 tablet 03/08/2024 03/27/2024 Discontinued (Therapy completed) phenazopyridine hydrochloride 200 mg oral tablet (14 sources) take 1 tablet by mouth three times daily phenazopyridine (PYRIDIUM) 200 mg tablet Take 1 tablet (200 mg total) by mouth 3 (three) times a day. Active polyethylene glycol 3350 61923 mg powder for oral solution (15 sources) Osmotic Laxative Start: 10-24-2019 End: 03-27-2024 polyethylene glycol (GLYCOLAX) 17 gram/dose powder Indications: Constipation in female , Endometrial cancer determined by uterine biopsy ([facility]) Take 17 g by mouth 2 (two) times a day. 527 g 3 10/24/2019 03/27/2024 Discontinued (Therapy completed) primidone 50 mg oral tablet (14 sources) Anti-epileptic Agent Start: 11-28-2016 take 1 tablet by mouth in the morning, then take 0.5-1 tablets by mouth at bedtime primidone (MYSOLINE) 50 mg tablet Indications: focal epilepsy Take 1 tablet (50 mg total) by mouth in the morning. Indications: a type of seizure called a focal seizure. Take 1/2 to 1 tab by mouth at bedtime. 11/28/2016 Active prochlorperazine 10 mg oral tablet (14 sources) Phenothiazine Start: 07-01-2022 take 1 tablet by mouth every six hours for nausea prochlorperazine (COMPAZINE) 10 mg tablet Indications: Nausea take 1 tablet by mouth every 6 hours if needed for nausea or vomiting 60 tablet 2 07/01/2022 Active simvastatin 40 mg oral tablet (18 sources) HMG-CoA Reductase Inhibitor End: 06-18-2024 take 1 tablet by mouth once daily simvastatin (ZOCOR) 40 mg tablet Indications: hypercholesterolemia Take 1 tablet (40 mg total) by mouth nightly Indications: high cholesterol. 06/18/2024 Discontinued (Therapy completed) sod sulf-pot chloride-mag sulf 1.479-0.188- 0.225 gram tablet (6 sources) Start: 10-17-2024 sod sulf-pot chloride-mag sulf 1.479-0.188- 0.225 gram tablet Indications: Diarrhea, unspecified type Please see instructional sheet given by physicians office. 24 tablet 10/17/2024 Active spironolactone 50 mg oral tablet (15 sources) Aldosterone Antagonist Start: 11-24-2020 End: 03-27-2024 take 1 tablet by mouth once daily spironolactone (ALDACTONE) 50 mg tablet take 1 tablet by mouth once daily 90 tablet 11/24/2020 03/27/2024 Discontinued (Therapy completed) sucralfate 1000 mg oral tablet (7 sources) Aluminum Complex Start: 11-05-2024 take 1 tablet by mouth four times daily sucralfate (CARAFATE) 1 gram tablet Take 1 tablet (1 g total) by mouth 4 (four) times a day. 120 tablet 11/05/2024 Active traZODone hydrochloride 50 mg oral tablet (18 sources) Serotonin Reuptake Inhibitor Start: 03-13-2024 take 1 tablet by mouth once daily as needed for sleep traZODone (DESYREL) 50 mg tablet Take 1 tablet (50 mg total) by mouth nightly as needed for sleep. 03/13/2024 Active Completed/Discontinued Medications Medication Drug Class(es) Dates Sig (Normalized) Sig (Original) lisinopril 10 mg oral tablet (20 sources) Angiotensin Converting Enzyme Inhibitor Start: 11-03-2017 End: 10-01-2024 take 1 tablet by mouth in the morning lisinopril (PRINIVIL,ZESTRIL) 10 mg tablet Indications: hypertension Take 1 tablet (10 mg total) by mouth in the morning. Indications: high blood pressure. 0 11/03/2017 10/01/2024 Discontinued Problems Active Problems Problem Classification Problem Date Documented Da te Episodic/Chronic Abdominal pain (13 sources) Periumbilical pain; 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: [Periumbilical pain] Onset: 5 03-27-2024 Episodic Asthma (20 sources) Uncomplicated moderate persistent asthma; 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: [Moderate persistent asthma, uncomplicated] Onset: 0 10-04-2019 Chronic Calculus of urinary tract (1 source) Personal history of urinary calculi; 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: [PERSONAL HISTORY OF URINARY CALCULI] Onset: 2 Episodic Cancer of cervix (2 sources) Malignant tumor of cervix; 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: [Malignant neoplasm of cervix uteri, unspecified] 04-23-2024 Chronic Cancer of other urinary organs (2 sources) Malignant tumor of ureter; 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: [Malignant neoplasm of unspecified ureter] 04-23-2024 Chronic Cancer of uterus (20 sources) Malignant neoplasm of endometrium; 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: [Malignant neoplasm of endometrium of corpus uteri ] Onset: 0 Resolved: 0 11-22-2021 Chronic Cardiac dysrhythmias (1 source) Bradycardia, unspecified; 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: [Bradycardia, unspecified] Onset: 5 Episodic Chronic kidney disease (20 sources) Chronic kidney disease; 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: [Chronic kidney disease, unspecified] 10-04-2019 Chronic Chronic obstructive pulmonary disease and bronchiectasis (20 sources) Chronic obstructive lung disease; 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: [Chronic obstructive pulmonary disease, unspecified] Resolved: 0 11-01-2019 Chronic Coagulation and hemorrhagic disorders (20 sources) Platelet count below reference range; 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: [Thrombocytopenia, unspecified] Onset: 7 Chronic Coronary atherosclerosis and other heart disease (2 sources) Coronary arteriosclerosis; 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: [Atherosclerotic heart disease of [place] coronary artery without angina pectoris] 04-23-2024 Chronic Diabetes mellitus without complication (20 sources) Type 2 diabetes mellitus without complications; 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: [Type 2 diabetes mellitus] Onset: 2 03-09-2024 Chronic Disorders of lipid metabolism (20 sources) Dyslipidemia; 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: [Hyperlipidemia, unspecified] 03-09-2024 Chronic Diverticulosis and diverticulitis (1 source) Diverticulosis of intestine, part unspecified, without perforation or abscess without bleeding; 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: [Diverticulosis of intestine, part unspecified, without perforation or abscess without bleeding] Onset: 5 Chronic Esophageal disorders (20 sources) Gastroesophageal reflux disease without esophagitis; 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: [Gastro-esophageal reflux disease without esophagitis] Onset: 9 03-09-2024 Chronic Essential hypertension (20 sources) Benign essential hypertension; 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: [Essential (primary) hypertension] Onset: 5 03-09-2024 Chronic Gastritis and duodenitis (1 source) Chronic superficial gastritis without bleeding; 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: [Chronic superficial gastritis without bleeding] Onset: 5 Chronic Gastrointestinal hemorrhage (2 sources) Black feces; 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: [Melena] Onset: 5 10-17-2024 Episodic Headache; including migraine (4 sources) Headache; including migraine; 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: [HEADACHE UNSPECIFIED] Onset: 2 Heart valve disorders (1 source) Unspecified abnormalities of heart beat; 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: [Unspecified abnormalities of heart beat] Onset: 5 Episodic Influenza (1 source) Influenza Onset: 5 Leukemias (2 sources) History of leukemia; 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: [Personal history of leukemia] 04-23-2024 Episodic Mood disorders (3 sources) Major depressive disorder, single episode, unspecified; 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: [Depressive disorder] Onset: 2 04-23-2024 Chronic Nausea and vomiting (2 sources) Vomiting; 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: [Vomiting, unspecified] Onset: 5 10-17-2024 Episodic Osteoarthritis (1 source) Unilateral primary osteoarthritis, right knee; 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: [UNI PRIM OSTEOARTHRITIS RT KNEE] Onset: 2 Chronic Other aftercare (1 source) 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; 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: [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] Onset: 2 Episodic Other aftercare (1 source) senior care (current) use of insulin; 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: [ASSISTED CURRENT USE OF INSULIN] Onset: 2 Episodic Other aftercare (1 source) senior care (current) use of oral hypoglycemic drugs; 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: [SUPERVISOR [employer]ACH[employer] WORK[employer] USE ORAL HYPOGLYCEMIC DX] Onset: 2 Episodic Other and unspecified benign neoplasm (1 source) Polyp of colon; 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: [Polyp of colon] Onset: 5 Episodic Other diseases of kidney and ureters (2 sources) Kidney disease; 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: [Disorder of kidney and ureter, unspecified] 04-23-2024 Episodic Other gastrointestinal disorders (1 source) Splenomegaly; 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: [Splenomegaly, not elsewhere classified] Episodic Other gastrointestinal disorders (1 source) Diarrhea; 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: [Diarrhea, unspecified] 10-17-2024 Episodic Other gastrointestinal disorders (1 source) Diarrhea, unspecified; 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: [Diarrhea, unspecified] Onset: 5 Episodic Other injuries and conditions due to external causes (1 source) Personal history of other (healed) physical injury and trauma; 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: [PERS HX OTH HEALED PHYS INJ AND TRAUMA] Onset: 2 Episodic Other liver diseases (20 sources) Cirrhosis of liver; 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: [Other cirrhosis of liver] Onset: 2 03-09-2024 Chronic Other liver diseases (2 sources) Steatosis of liver; 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: [Fatty (change of) liver, not elsewhere classified] 04-23-2024 Chronic Other liver diseases (1 source) Other cirrhosis of liver; 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: [Other cirrhosis of liver] Onset: 2 Chronic Other liver diseases (1 source) Large liver; 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: [Hepatomegaly, not elsewhere classified] Episodic Other liver diseases (2 sources) Hepatosplenomegaly; 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: [Hepatomegaly with splenomegaly, not elsewhere classified] 09-23-2023 Episodic Other nutritional; endocrine; and metabolic disorders (20 sources) Obese class I; 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: [Obesity (BMI 30.0-34.9)] Onset: 0 11-22-2021 Chronic Other nutritional; endocrine; and metabolic disorders (1 source) Unexplained weight loss ; 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: [Abnormal weight loss] 04-23-2024 Episodic Other nutritional; endocrine; and metabolic disorders (1 source) Abnormal weight loss; 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: [Loss of weight] 04-23-2024 Episodic Residual codes; unclassified (20 sources) Obstructive sleep apnea syndrome; 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: [Obstructive sleep apnea (adult) (pediatric)] Onset: 0 10-04-2019 Chronic Residual codes; unclassified (20 sources) Insomnia; 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: [Other insomnia] Onset: 3 03-11-2022 Chronic Residual codes; unclassified (1 source) Obstructive sleep apnea (adult) (pediatric); 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: [Obstructive sleep apnea (adult) (pediatric)] Onset: 5 Chronic Spondylosis; intervertebral disc disorders; other back problems (20 sources) Lumbar spondylosis; 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: [Spondylosis without myelopathy or radiculopathy, lumbar region] Onset: 7 11-22-2021 Chronic Unclassified (2 sources) Consult; 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: [Consult] Onset: 2 Unclassified (5 sources) Autogenerated Problem Onset: 5 10-17-2024 Unclassified (1 source) Esophagitis, unspecified without bleeding; 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: [Esophagitis, unspecified without bleeding] Onset: 5 Unclassified (1 source) Abdominal Pain; Vomiting Onset: 5 Past or Other Problems Problem Classification Problem Date Documented Da te Episodic/Chronic Abdominal hernia (17 sources) Umbilical hernia; 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: [Umbilical hernia without obstruction or gangrene] Onset: 03-09-2024 03-09-2024 Episodic Diabetes mellitus without complication (20 sources) Hyperglycemia; 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: [Hyperglycemia, unspecified] Onset: 10-05-2019 10-05-2019 Episodic Diseases of mouth; excluding dental (20 sources) Xerostomia; 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: [Dry mouth, unspecified] Onset: 06-05-2018 Resolved: 12-26-2019 12-26-2019 Episodic E Codes: Fall (20 sources) Accidental fall ; 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: [Fall (on) (from) other stairs and steps, initial encounter] Onset: 04-03-2020 04-03-2020 Episodic Genitourinary symptoms and ill-defined conditions (20 sources) Dysuria; 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: [Dysuria] Onset: 12-26-2019 Episodic Headache; including migraine (20 sources) Headache; 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: [Headache] Onset: 04-24-2019 04-24-2019 Episodic Intestinal infection (1 source) Other specified bacterial intestinal infections; 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: [Other specified bacterial intestinal infections] Onset: 07-02-2024 Episodic Lymphadenitis (20 sources) Cervical lymphadenopathy; 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: [Localized enlarged lymph nodes] Onset: 09-13-2017 03-09-2024 Episodic Mood disorders (20 sources) Mood disorders Onset: 03-07-2022 03-07-2022 Mycoses (1 source) Candidal stomatitis; 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: [Candidal stomatitis] Onset: 06-08-2024 Episodic Noninfectious gastroenteritis (17 sources) Gastroenteritis; 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: [Noninfective gastroenteritis and colitis, unspecified] Onset: 03-09-2024 03-09-2024 Episodic Nonspecific chest pain (7 sources) Chest pain, unspecified; 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: [Chest pain] Onset: 12-16-2023 08-19-2023 Episodic Other gastrointestinal disorders (20 sources) Dysphagia; 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: [Other dysphagia] Onset: 09-13-2017 Resolved: 12-26-2019 12-26-2019 Episodic Other injuries and conditions due to external causes (1 source) History of falling; 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: [HISTORY OF FALLING] Onset: 07-16-2021 Episodic Other injuries and conditions due to external causes (20 sources) Injury of nose; 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: [Unspecified injury of nose, initial encounter] Onset: 04-03-2020 04-03-2020 Episodic Other injuries and conditions due to external causes (20 sources) Injury of left foot; 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: [Unspecified injury of left foot, initial encounter] Onset: 04-03-2020 04-03-2020 Episodic Other injuries and conditions due to external causes (20 sources) Injury of right foot; 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: [Unspecified injury of right foot, initial encounter] Onset: 04-03-2020 04-03-2020 Episodic Other liver diseases (1 source) Hepatomegaly with splenomegaly, not elsewhere classified; 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: [Hepatomegaly with splenomegaly, not elsewhere classified] Onset: 12-22-2023 Episodic Other lower respiratory disease (2 sources) Shortness of breath; 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: [Shortness of breath] Onset: 12-16-2023 Episodic Other lower respiratory disease (20 sources) Hemoptysis; 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: [Hemoptysis] Onset: 04-24-2019 Resolved: 12-26-2019 12-26-2019 Episodic Other lower respiratory disease (2 sources) Dyspnea; 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: [Shortness of breath] 12-16-2023 Episodic Other nervous system disorders (1 source) Trigeminal neuralgia; 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: [TRIGEMINAL NEURALGIA] Onset: 03-06-2021 Episodic Other non-traumatic joint disorders (4 sources) Pain in right knee; 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: [PAIN IN RIGHT KNEE] Onset: 07-15-2021 Episodic Other non-traumatic joint disorders (1 source) Pain in right ankle and joints of right foot; 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: [PAIN IN RIGHT ANKLE] Onset: 07-16-2021 Episodic Other screening for suspected conditions (not mental disorders or infectious disease) (20 sources) Abnormal result of other cardiovascular function study; 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: [Patient encounter status] Onset: 07-29-2016 Resolved: 06-17-2020 12-26-2019 Episodic Other upper respiratory disease (20 sources) Pain in throat; 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: [Pain in throat] Onset: 09-13-2017 Resolved: 12-26-2019 12-26-2019 Episodic Other upper respiratory disease (20 sources) Hoarse; 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: [Dysphonia] Onset: 09-13-2017 Resolved: 12-26-2019 12-26-2019 Episodic Other upper respiratory infections (20 sources) Pharyngitis; 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: [Acute pharyngitis, unspecified] Onset: 10-26-2018 Resolved: 11-02-2018 11-02-2018 Episodic Pathological fracture (20 sources) 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; 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: [Other osteoporosis with current pathological fracture, vertebra(e), initial encounter for fracture] Onset: 11-22-2021 11-22-2021 Episodic Spondylosis; intervertebral disc disorders; other back problems (20 sources) Spinal stenosis in cervical region; 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: [Spinal stenosis, cervical region] Onset: 03-16-2017 11-22-2021 Episodic Superficial injury; contusion (20 sources) Contusion of orbital tissue of left eye; 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: [Contusion of eyeball and orbital tissues, left eye, sequela] Onset: 04-07-2020 04-07-2020 Episodic Urinary tract infections (20 sources) Cystitis, unspecified without hematuria; 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: [Acute cystitis] Onset: 12-26-2019 12-26-2019 Episodic Results Test Name Value Interpretation Reference Range Facility [facility] 12-05-2024 aPTT Coag (Bld) [Time] 31 s Normal 26-37 [facility] Comment on above: Performed By: #### P TT ####[facility] ([address] [address] VIR B-TYPE NATRIURETIC PEPTIDEon 12-05-2024 Natriuretic peptide B (Bld) [Mass/Vol] 85 pg/mL Normal <=100 [facility] Comment on above: Performed By: #### C RT #### [facility] ([id number]) [address], [address] [place] [address] CBC WITH AUTO DIFFERENTIALon 12-05-2024 BASOPHILS ABSOLUTE COUNT (10*3/UL) BY AUTOMATED COUNT 0.1 10*3/uL Normal 0.0-0.2 [facility] Comment on above: Performed By: #### C BCA ####[facility] ([address] [address] VIR BASOPHILS RELATIVE PERCENT BY AUTOMATED COUNT 1.4 % Normal [facility] Comment on above: Performed By: #### C BCA ####[address] [address] VIR CELLAVISION DIFFERENTIAL TYPE AUTOMATED DIFFERENTIAL Normal [facility] Comment on above: Performed By: #### C BCA ####[facility] ([address] [address] VIR Eosinophils (Bld) [#/Vol] 0.1 10*3/uL Normal 0.0-0.4 [facility] Comment on above: Performed By: #### C BCA ####[facility] ([address] [address] VIR EOSINOPHILS RELATIVE PERCENT BY AUTOMATED COUNT 1.2 % Normal [facility] Comment on above: Performed By: #### C BCA ####[facility] ([address] [place] [address] VIR Erythrocyte distribution width (RBC) [Ratio] 13.9 % Normal 11.5-15 [facility] Comment on above: Performed By: #### C BCA ####[facility] ([address] [place] [address] VIR Hematocrit (Bld) [Volume fraction] 41.7 % Normal 35-47 [facility] Comment on above: Performed By: #### C BCA ####[facility] ([address] [place] [address] VIR Hemoglobin (Bld) [Mass/Vol] 14.5 g/dL Normal 11.7-15.5 [facility] Comment on above: Performed By: #### C BCA ####[facility] ([address] [address] VIR LYMPHOCYTES ABSOLUTE COUNT (10*3/UL) BY AUTOMATED COUNT 2.8 10*3/uL Normal 1.0-3.5 [facility] Comment on above: Performed By: #### C BCA ####[facility] ([address] [address] VIR LYMPHOCYTES RELATIVE PERCENT BY AUTOMATED COUNT 48.9 % Normal [facility] Comment on above: Performed By: #### C BCA ####[facility] ([address] [place] [address] VIR MCH (RBC) [Entitic mass] 31.9 pg Normal 27-34 [facility] Comment on above: Performed By: #### C BCA ####[facility] ([address] [place] [address] VIR MCHC (RBC) [Mass/Vol] 34.8 g/dL Normal 32-36 [facility] Comment on above: Performed By: #### C BCA ####[facility] ([address] [address] VIR MCV (RBC) [Entitic vol] 92 fL Normal 80-100 [facility] Comment on above: Performed By: #### C BCA ####[facility] ([facility])[address] [place] [address] VIR MONOCYTES ABSOLUTE COUNT (10*3/UL) BY AUTOMATED COUNT 0.3 10*3/uL Normal 0.0-0.9 [facility] Comment on above: Performed By: #### C BCA ####[facility] ([address] [address] VIR MONOCYTES RELATIVE PERCENT BY AUTOMATED COUNT 4.4 % Normal [facility] Comment on above: Performed By: #### C BCA ####[facility] ([address] [address] VIR NEUTROPHILS ABSOLUTE COUNT BY AUTOMATED COUNT 2.5 10*3/uL Normal 1.5-6.6 [facility] Comment on above: Performed By: #### C BCA ####[facility] ([address] [address] VIR NEUTROPHILS RELATIVE PERCENT BY AUTOMATED COUNT 44.1 % Normal [facility] Comment on above: Performed By: #### C BCA ####[facility] ([address] [address] VIR Platelet mean volume (Bld) [Entitic vol] 10.6 fL Normal 7-12 [facility] Comment on above: Performed By: #### C BCA ####[facility] ([address] [address] VIR Platelets (Bld) [#/Vol] 107 10*3/uL Low 150-450 [facility] Comment on above: Performed By: #### C BCA ####[facility] ([address] [address] VIR RBC COUNT 4.55 X10E12/L Normal 3.8-5.2 [facility] Comment on above: Performed By: #### C BCA ####[facility] ([facility])[address] [place] [address] VIR WBC (Bld) [#/Vol] 5.7 10*3/uL Normal 4-11 [facility] Comment on above: Performed By: #### C BCA ####[facility] ([facility])[address] [place] [address] VIR COMPREHENSIVE METABOLIC PANE [place] 12-05-2024 Albumin [Mass/Vol] 3.7 g/dL Normal 3.2-5.3 [facility] Comment on above: Performed By: #### C RT #### [facility] ([id number]) [address], [address] [place] [address] ALP [Catalytic activity/Vol] 75 U/L Normal 39-130 [facility] Comment on above: Performed By: #### C RT #### [facility] ([id number]) [address], [address] [place] [address] ALT [Catalytic activity/Vol] 31 U/L Normal <=31 [facility] Comment on above: Performed By: #### C RT #### [facility] ([id number]) [address], [address] [place] [address] Anion gap [Moles/Vol] 9 mmol/L Normal 5-15 [facility] Comment on above: Performed By: #### C RT #### [facility] ([id number]) [address], [address] [place] [address] AST [Catalytic activity/Vol] 29 U/L Normal <=41 [facility] Comment on above: Performed By: #### C RT #### [facility] ([id number]) [address], [address] [place] [address] Bilirubin [Mass/Vol] 1.5 mg/dL High 0.3-1.2 [facility] Comment on above: Performed By: #### C RT #### [facility] ([id number]) [address], [address] [place] [address] Calcium [Mass/Vol] 8.7 mg/dL Normal 8.5-10.5 [facility] Comment on above: Performed By: #### C RT #### [facility] ([id number]) [address] [place] [address] Chloride [Moles/Vol] 104 mmol/L Normal 98-109 [facility] Comment on above: Performed By: #### C RT #### [facility] ([id number]) [address] [address] [place] [address] CO2 [Moles/Vol] 26 mmol/L Normal 22-32 [facility] Comment on above: Performed By: #### C RT #### [facility] ([id number]) [address] [address] [place] [address] Creatinine [Mass/Vol] 1.06 mg/dL High 0.40-1.00 [facility] Comment on above: Result Comment: METH OD TRACEABLE TO IDMS STANDARD Performed By: #### C RT #### [facility] ([id number]) [address] [place] [address] GFR/1.73 sq M.predicted among non-blacks MDRD (S/P/Bld) [Vol rate/Area] 61 mL/min/{1.73_m2} Normal >=60 [facility] Comment on above: Result Comment: eGFR not reported due to non-numeric value for Creatinine. Reported eGFR is based on the CKD-EPI 2020 equation that does not use a race coefficient. Performed By: #### C RT #### [facility] ([id number]) [address] [place] [address] Glucose [Mass/Vol] 234 mg/dL High 65-99 [facility] Comment on above: Performed By: #### C RT #### [facility] ([id number]) [address], [address] [place] [address] Potassium [Moles/Vol] 3.6 mmol/L Normal 3.5-5.0 [facility] Comment on above: Performed By: #### C RT #### [facility] ([id number]) [address], [address] [place] [address] Protein [Mass/Vol] 6.5 g/dL Normal 6.0-8.0 [facility] Comment on above: Performed By: #### C RT #### [facility] ([id number]) [address], [address] [place] [address] Sodium [Moles/Vol] 139 mmol/L Normal 134-146 [facility] Comment on above: Performed By: #### C RT #### [facility] ([id number]) [address], [address] [place] [address] Urea nitrogen [Mass/Vol] 8 mg/dL Normal 5-23 [facility] Comment on above: Performed By: #### C RT #### [facility] ([id number]) [address], [address] [place] [address] D-DIMERon 12-05-2024 D DIMER <^150 Normal 1-255 [facility] Comment on above: Result Comment: Resu lts <255 ng/mL DDU: The presensence of a VTE can safely be excluded with a negative D-Dimer result and Wells score. A negative result doesn't exclude the possibility of DIC. The test should be repeated along with other diagnostic tests if the patient's symptoms persist or worsen. Performed By: #### D DMR ####[facility] ([facility])[address] [place] [address] VIR MAGNESIUMon 12-05-2024 Magnesium [Mass/Vol] 1.5 mg/dL Low 1.8-2.6 [facility] Comment on above: Performed By: #### M G ####[facility] ([facility])[address] [place] [address].[place] [address] VIR PROTIME AND INRon 12-05-2024 INR 1.1 Normal 0.9-1.2 [facility] Comment on above: Performed By: #### P INR ####[facility] ([address] [place] [address] VIR PT Coag (PPP) [Time] 12.8 s Normal 9.8-13.2 [facility] Comment on above: Performed By: #### P INR ####[facility] ([address] [place] [address] VIR TROP I, HIGH SENSITIVITY 1 H OURon 12-05-2024 TROPONIN I, HIGH SENSITIVITY 5 ng/L Normal <16 [facility] Comment on above: Performed By: #### C RT #### [facility] ([id number]) [address] [place] [address], [address] [place] [address] TROPONIN I, HIGH SENSITIVITY 0 HOURon 12-05-2024 TROPONIN I, HIGH SENSITIVITY 6 ng/L Normal <16 [facility] Comment on above: Performed By: #### C RT #### [facility] ([id number]) [address] [place] [address], [address] [place] [address] XR CHEST 1 VWon 12-05-2024 XR CHEST 1 VW XR CHEST 1 VW Clinical history: Bradycardia. Comparisons: 08/24/2027 through 07/13/2023. Findings: Portable chest radiograph obtained 11:58 AM. Heart size and pulmonary vasculature appear within normal limits. Lungs appear clear. Defibrillator pads overlie the chest. No pleural effusion or pneumothorax. Upper lumbar kyphoplasty again seen. IMPRESSION: No evidence for acute cardiopulmonary disease. Finalized by Vincenzo Sharma MD on 12/05/2024 12:06 PM Normal [facility] BEDSIDE GLUCOSEon 12-03-2024 Glucose [Mass/Vol] 199 mg/dL High 65-99 [facility] Comment on above: Performed By: #### B EDG ####[facility] ([address] [place] [address] VIR BEDSIDE GLUCOSEon 11-05-2024 Glucose [Mass/Vol] 183 mg/dL High 65-99 [facility] Comment on above: Performed By: #### B EDG ####[facility] ([address] [place] [address] VIR CREATININE, SERUMon 10-31-19 25 Creatinine [Mass/Vol] 0.89 mg/dL Normal 0.40-1.00 [facility] Comment on above: Result Comment: METH OD TRACEABLE TO IDMS STANDARD Performed By: #### C RT ####[facility] ([address] [address] VIR GFR/1.73 sq M.predicted among non-blacks MDRD (S/P/Bld) [Vol rate/Area] 75 mL/min/{1.73_m2} Normal >=60 [facility] Comment on above: Result Comment: Repo rted eGFR is based on the CKD-EPI 2020 equation that does not use a race coefficient. Performed By: #### C RT ####[facility] ([address] [place] [address] ABDOMEN AND PELVIS W CONT on 10-30-2024 CT ABDOMEN AND PELVIS W CONT CT ABDOMEN AND PELVIS W CONT CLINICAL INFORMATION: RLQ abdominal pain TECHNIQUE: CT ABDOMEN AND PELVIS W CONT CT images of the abdomen and pelvis are obtained. Intravenous contrast was administered. There is no free intraperitoneal fluid or evidence of pneumoperitoneum. What appears to be the appendix is normal in caliber, although not well visualized. Small bowel is nondistended. There is no colonic wall thickening or pericolonic inflammatory stranding. No hydronephrosis. The liver, spleen, pancreas, and adrenals appear unremarkable. Portal and mesenteric vessels enhance normally 2 within the limits this exam. Patient status post multiple compression deformities with vertebroplasty. Aortic atherosclerotic changes noted. IMPRESSION: No acute findings. All CT scans at this facility use dose modulation, iterative reconstruction, and/or weight based dosing when appropriate to reduce radiation dose to as low as reasonably achievable. Finalized by Daniel Meléndez MD on 10/30/2024 11:30 AM Normal [facility] CBC WITH AUTO DIFFERENTIALon 09-25-2024 BASOPHILS ABSOLUTE COUNT (10*3/UL) BY AUTOMATED COUNT 0.0 10*3/uL Normal 0.0-0.2 [facility] Comment on above: Order Comment: Abnor mal CBC with auto diff reflexes to a manual diff Performed By: #### C BCA ####[facility] ([facility])[address] [address] VIR BASOPHILS RELATIVE PERCENT BY AUTOMATED COUNT 0.6 % Normal [facility] Comment on above: Order Comment: Abnor mal CBC with auto diff reflexes to a manual diff Performed By: #### C BCA ####[facility] ([facility])[address] [facility] [address] [address] VIR CELLAVISION DIFFERENTIAL TYPE AUTOMATED DIFFERENTIAL Normal [facility] Comment on above: Order Comment: Abnor mal CBC with auto diff reflexes to a manual diff Performed By: #### C BCA ####[facility] ([facility])[address] [facility] [address] [address] VIR Eosinophils (Bld) [#/Vol] 0.0 10*3/uL Normal 0.0-0.4 [facility] Comment on above: Order Comment: Abnor mal CBC with auto diff reflexes to a manual diff Performed By: #### C BCA ####[facility] ([facility])[address] [address] VIR EOSINOPHILS RELATIVE PERCENT BY AUTOMATED COUNT 0.5 % Normal [facility] Comment on above: Order Comment: Abnor mal CBC with auto diff reflexes to a manual diff Performed By: #### C BCA ####[facility] ([facility])[address], [place] [address] VIR Erythrocyte distribution width (RBC) [Ratio] 13.8 % Normal 11.5-15 [facility] Comment on above: Order Comment: Abnor mal CBC with auto diff reflexes to a manual diff Performed By: #### C BCA ####[facility] ([facility])[address], [place] [address] VIR Hematocrit (Bld) [Volume fraction] 43.5 % Normal 35-47 [facility] Comment on above: Order Comment: Abnor mal CBC with auto diff reflexes to a manual diff Performed By: #### C BCA ####[facility] ([facility])[address], [place] [address] VIR Hemoglobin (Bld) [Mass/Vol] 14.8 g/dL Normal 11.7-15.5 [facility] Comment on above: Order Comment: Abnor mal CBC with auto diff reflexes to a manual diff Performed By: #### C BCA ####[facility] ([facility])[address], [place] [address] VIR LYMPHOCYTES ABSOLUTE COUNT (10*3/UL) BY AUTOMATED COUNT 2.5 10*3/uL Normal 1.0-3.5 [facility] [facility] Comment on above: Order Comment: Abnor mal CBC with auto diff reflexes to a manual diff Performed By: #### C BCA ####[facility] ([facility])[address], [place] [address] VIR LYMPHOCYTES RELATIVE PERCENT BY AUTOMATED COUNT 46.6 % Normal [facility] Comment on above: Order Comment: Abnor mal CBC with auto diff reflexes to a manual diff Performed By: #### C BCA ####[facility] ([facility])[address], [place] [address] VIR MCH (RBC) [Entitic mass] 32.5 pg Normal 27-34 [facility] Comment on above: Order Comment: Abnor mal CBC with auto diff reflexes to a manual diff Performed By: #### C BCA ####[facility] ([facility])[address], [place] [address] VIR MCHC (RBC) [Mass/Vol] 33.9 g/dL Normal 32-36 [facility] Comment on above: Order Comment: Abnor mal CBC with auto diff reflexes to a manual diff Performed By: #### C BCA ####[facility] ([facility])[address], [place] [address] VIR MCV (RBC) [Entitic vol] 96 fL Normal 80-100 [facility] Comment on above: Order Comment: Abnor mal CBC with auto diff reflexes to a manual diff Performed By: #### C BCA ####[facility] ([facility])[address], [place] [address] VIR MONOCYTES ABSOLUTE COUNT (10*3/UL) BY AUTOMATED COUNT 0.2 10*3/uL Normal 0.0-0.9 [facility] Comment on above: Order Comment: Abnor mal CBC with auto diff reflexes to a manual diff Performed By: #### C BCA ####[facility] ([facility])[address], [place] [address] VIR MONOCYTES RELATIVE PERCENT BY AUTOMATED COUNT 4.3 % Normal [facility] Comment on above: Order Comment: Abnor mal CBC with auto diff reflexes to a manual diff Performed By: #### C BCA ####[facility] ([facility])[address], [place] [address] VIR NEUTROPHILS ABSOLUTE COUNT BY AUTOMATED COUNT 2.6 10*3/uL Normal 1.5-6.6 [facility] Comment on above: Order Comment: Abnor mal CBC with auto diff reflexes to a manual diff Performed By: #### C BCA ####[facility] ([facility])[address], [place] [address] VIR NEUTROPHILS RELATIVE PERCENT BY AUTOMATED COUNT 48.0 % Normal [facility] Comment on above: Order Comment: Abnor mal CBC with auto diff reflexes to a manual diff Performed By: #### C BCA ####[facility] ([facility])[address], [place] [address] VIR Platelet mean volume (Bld) [Entitic vol] 10.0 fL Normal 7-12 [facility] Comment on above: Order Comment: Abnor mal CBC with auto diff reflexes to a manual diff Performed By: #### C BCA ####[facility] ([facility])[address], [place] [address] VIR Platelets (Bld) [#/Vol] 89 10*3/uL Low 150-450 [facility] Comment on above: Order Comment: Abnor mal CBC with auto diff reflexes to a manual diff Performed By: #### C BCA ####[facility] ([facility])[address], [place] [address] VIR RBC COUNT 4.54 X10E12/L Normal 3.8-5.2 [facility] Comment on above: Order Comment: Abnor mal CBC with auto diff reflexes to a manual diff Performed By: #### C BCA ####[facility] ([facility])[address], [place] [address] VIR WBC (Bld) [#/Vol] 5.4 10*3/uL Normal 4-11 [facility] Comment on above: Order Comment: Abnor mal CBC with auto diff reflexes to a manual diff Performed By: #### C BCA ####[facility] ([facility])[address], [place] [address] VIR HELICOBACTER PYLORI???ANTIGE N, FECALon 07-02-2024 HELICOBACTER PYLORI AG, BY EIA Negative Normal Negative [facility] Comment on above: Result Comment: Perf ormed By: [employer] [address] [place] [address] Power Barker Operator: Reza Guajardo MD, PhD CLIA Number: [id number] Performed By: #### H PYLAG ####[facility] ([facility])[address] [place] [address] VIR RAPID STREP SCR NURSINGon S. pyogenes Ag EIA Ql (Throat) Negative Normal NEG [facility] Comment on above: Performed By: #### 6 556-5 ####[facility] ([id number])[address] [place] [address] SARS/FLU A+B/RSV by NAAT/Mol ecularon 06-08-2024 SARS/FLU A+B/RSV by NAAT/Molecular FLU A PCR Negative (qualifier value) FLU B PCR Negative (qualifier value) RSV by PCR Negative (qualifier value) SARS CoV 2 Not detected (qualifier value) NOTE The Xpert Xpress SARS-CoV-2/Flu/RSV Plus test is a rapid, multiplexed real-time RT-PCR test intended for the simultaneous qualitative detection and differentiation of SARS-CoV-2, influenza A, influenza B and respiratory syncytial virus (RSV) viral RNA from individuals suspected of respiratory viral infection consistent with COVID-19 by their healthcare provider. This test has not been validated in asymptomatic patients. The Xpert Xpress SARS-CoV-2 test is intended for use by qualified and trained operators who are performing tests using either [employer] or [employer] systems and is limited to laboratories that meet the CLIA requirements to perform high and moderate complexity tests. The Xpert Xpress SARS-CoV-2/Flu/RSV Plus is only for use under the Food and Drug Administration's Emergency Use Authorization. Results are for the simultaneous detection and differentiation of SARS-CoV-2, influenza A, influenza B and RSV nucleic acids in clinical specimens. SARS-CoV-2, influenza A, influenza B and RSV RNA identified by this test are generally detectable in upper respiratory samples during the acute phase of infection. Positive results are indicative of the presence of the identified virus, but do not rule out bacterial infection or co-infection with other pathogens not detected by this test. Clinical correlation with patient history and other diagnostic information is necessary to determine patient infection status. The agent detected may not be the definite cause of disease. Negative results do not preclude SARS-CoV-2, influenza A, influenza B and RSV infection and should not be used as the sole basis for treatment or other patient management decisions. Negative results must be combined with clinical observations, patient history and epidemiological information. An Invalid result may occur with specimen-associated inhibition unable to be resolved with specimen repeat. Fact Sheet for Healthcare Providers: https://www.fda.gov/me dunia/721665/download Fact Sheet for Patients: https://www.fda.gov/sc dunia/267208/download Normal [facility] Comment on above: Performed By: #### C OVFLR ####[facility] ([id number])[address] [place] [address] Glucose Glucometer (BldC) [M ass/Vol]Ordered By: Pedro Russ on 05-10-2024 Glucose [Mass/Vol] Capillary blood glucose measurement by glucometer (mass/volume) [facility] Comment on above: Random Glucose Refer ence Range is dependent on time and content of last meal. Glucose of more than 200 mg/dL in a nonstressed, ambulatory subject supports the diagnosis of Diabetes Mellitus. Glucose Poct Glucometerson 0 05-10-2024 Commemt1 Glu2: Cleaned Meter Normal [facility] Comment on above: Result Comment: PERF ORMED BY: [facility] [address] [place] [address] PATHOLOGIST PART TIME GAVIOTA LADD M.D. Performed By: #### G LULS #### Point of Care testing , Glucose [Mass/Vol] 306 mg/dL Normal [facility] Comment on above: Result Comment: [place] Glucose Reference Range is dependent on time and content of last meal. Glucose of more than 200 mg/dL in a nonstressed, ambulatory subject supports the diagnosis of Diabetes Mellitus. Performed By: #### G LULS #### Point of Care testing , No Panel InformationOrdered By: Pedro Russ on 05-10-2024 Bedside Glucose Comment Glu2: cleaned meter [facility] Pathology Request for Lab Co rpon 05-10-2024 Pathology Request for Lab [place] Normal [facility] Comment on above: Order Comment: PATHO LOGY SPECIMEN- GI BIOPSY Result Comment: See report. Scanned copy available in EMR. PERFORMED BY: [facility] [address] [place] [address] PATHOLOGIST PART TIME GAVIOTA LADD M.D. Performed By: #### P ATH TO [facility] #### [facility] [address] CBC AND AUTO DIFFon 03-09-19 25 ABSOLUTE BASOPHIL 0.0 X10E9/L Normal 0.0-0.2 [facility] Comment on above: Performed By: #### C TRE, , CBCA ####[facility] ([id number])[address] [place] [address]#### HA1C ####[facility] ([id number])[address] [place] [address], [address] [place] [address] ABSOLUTE NEUTROPHIL 2.4 X10E9/L Normal 1.5-6.6 [facility] Comment on above: Performed By: #### Cherie [place], , CBCA ####[facility] ([id number])[address] [place] [address]#### HA1C ####[facility] ([id number])[address] [place] [address], [address] [place] [address] Basophils/100 WBC (Bld) 0.2 % Normal [facility] Comment on above: Performed By: #### C TRE, , CBCA ####[facility] ([id number])[address] [place] [address]#### HA1C ####[facility] ([id number])[address] [place] [address], [address] [place] [address] Eosinophils (Bld) [#/Vol] 0.0 10*3/uL Normal 0.0-0.4 [facility] Comment on above: Performed By: #### C TRE, , CBCA ####[facility] ([id number])[address] [place] [address]#### HA1C ####[facility] ([id number])[address], [address] [place] [address] Eosinophils/100 WBC (Bld) 0.2 % Normal [facility] Comment on above: Performed By: #### C TRE, , CBCA ####[facility] ([id number])[address] [place] [address] 26799#### HA1C ####[facility] ([id number])[address], [address] [place] [address] Erythrocyte distribution width (RBC) [Ratio] 13.9 % Normal 11.5-15.0 [facility] Comment on above: Performed By: #### C TRE, , CBCA ####[facility] ([id number])[address] [place] [address] 367[address]#### HA1C ####[facility] ([id number])[address], [address] [place] [address] Hematocrit (Bld) [Volume fraction] 40.2 % Normal 35-47 [facility] Comment on above: Performed By: #### C TRE, , CBCA ####[facility] ([id number])[address] [place] [address] 82056#### HA1C ####[facility] ([id number])[address], [address] [place] [address] Hemoglobin (Bld) [Mass/Vol] 13.9 g/dL Normal 11.7-15.5 [facility] Comment on above: Performed By: #### C TRE, , CBCA ####[facility] ([id number])[address] [place] [address] 17276#### HA1C ####[facility] ([id number])[address] [address] Lymphocytes (Bld) [#/Vol] 2.2 10*3/uL Normal 1.0-3.5 [facility] Comment on above: Performed By: #### C TRE, , CBCA ####[facility] ([id number])[address] [place] [address] 578[address]#### HA1C ####[facility] ([id number])[address] [address] Lymphocytes/100 WBC (Bld) 45.3 % Normal [facility] Comment on above: Performed By: #### Cherie [place], , CBCA ####[facility] ([id number])[address] [place] [address] 73503#### HAHe ####[facility] ([id number])[address] [address] MCH (RBC) [Entitic mass] 32.0 pg Normal 27-34 [facility] Comment on above: Performed By: #### Cherie [place], , CBCA ####[facility] ([id number])[address] [place] [address] 513[address]#### HA1C ####[facility] ([id number])[address] [address] MCHC (RBC) [Mass/Vol] 34.5 g/dL Normal 32-36 [facility] Comment on above: Performed By: #### Cherie [place], , CBCA ####[facility] ([id number])[address] [place] [address] 66022#### HA1C ####[facility] ([id number])[address] [address] MCV (RBC) [Entitic vol] 93 fL Normal 80-100 [facility] Comment on above: Performed By: #### Cherie [place], , CBCA ####[facility] ([id number])[address] [place] [address] 52063#### HA1C ####[facility] ([id number])[address], [address] [place] [address] Monocytes (Bld) [#/Vol] 0.2 10*3/uL Normal 0-0.9 [facility] Comment on above: Performed By: #### Cherie [place], , CBCA ####[facility] ([id number])[address] [place] [address] 17451#### HA1C ####[facility] ([id number])[address] [address] [place] [address]60[address] Monocytes/100 WBC (Bld) 4.4 % Normal [facility] Comment on above: Performed By: #### Cherie [place], , CBCA ####[facility] ([id number])[address] [place] [address] 29698#### HA1C ####[facility] ([id number])[address] [address] [place] [address] Neutrophils/100 WBC (Bld) 49.9 % Normal [facility] Comment on above: Performed By: #### Cherie [place], , CBCA ####[facility] ([id number])[address] [place] [address] 97559#### HA1C ####[facility] ([id number])[address], [address] [address] Platelet mean volume (Bld) [Entitic vol] 10.4 fL Normal 7-12 [facility] Comment on above: Performed By: #### C TRE, , CBCA ####[facility] ([id number])[address] [place] [address] 16334#### HA1C ####[facility] ([id number])[address], [address] [address] Platelets (Bld) [#/Vol] 85 10*3/uL Low 150-450 [facility] Comment on above: Performed By: #### C TRE, , CBCA ####[facility] ([id number])[address] [place] [address] 10684#### HA1C ####[facility] ([id number])[address], [address] [place] [address] RBC COUNT 4.32 X10E12/L Normal 3.80-5.20 [facility] Comment on above: Performed By: #### C TRE, , CBCA ####[facility] ([id number])[address] [place] [address] 71802#### HA1C ####[facility] ([id number])[address], [address] [place] [address] WBC (Bld) [#/Vol] 4.8 10*3/uL Normal 4.0-11.0 [facility] Comment on above: Performed By: #### C TRE, , CBCA ####[facility] ([id number])[address] [place] [address] 09915#### HA1C ####[facility] ([id number])[address] [place] [address] COMPREHENSIVE METABOLIC PANE [place] 03-09-2024 Albumin [Mass/Vol] 3.4 g/dL Normal 3.2-5.3 [facility] Comment on above: Performed By: #### C TRE, , CBCA ####[facility] ([id number])[address] [place] [address] 80899#### HA1C ####[facility] ([id number])[address], [address] [place] [address] ALP [Catalytic activity/Vol] 57 U/L Normal 39-130 [facility] Comment on above: Performed By: #### C TRE, , CBCA ####[facility] ([id number])[address] [place] [address] 31601#### HA1C ####[facility] ([id number])[address], [address] [place] [address] ALT [Catalytic activity/Vol] 28 U/L Normal 0-31 [facility] Comment on above: Performed By: #### C TRE, , CBCA ####[facility] ([id number])[address] [place] [address] 41641#### HA1C ####[facility] ([id number])[address], [address], [place] [address] Anion gap [Moles/Vol] 8 mmol/L Normal 5-15 [facility] Comment on above: Performed By: #### C TRE, , CBCA ####[facility] ([id number])[address] [place] [address] 98007#### HA1C ####[facility] ([id number])[address], [place] [address] AST [Catalytic activity/Vol] 29 U/L Normal 0-41 [facility] Comment on above: Performed By: #### Cherie [place], , CBCA ####[facility] ([id number])[address] [place] [address] 21082#### HA1C ####[facility] ([id number])[address], [address] [address] Bilirubin [Mass/Vol] 0.8 mg/dL Normal 0.3-1.2 [facility] Comment on above: Performed By: #### C TRE, , CBCA ####[facility] ([id number])[address] [place] [address] 44929#### HA1C ####[facility] ([id number])[address], [address] [place] [address]10 Calcium [Mass/Vol] 8.5 mg/dL Normal 8.5-10.5 [facility] Comment on above: Performed By: #### C TRE, , CBCA ####[facility] ([id number])[address] [place] [address] 19563#### HA1C ####[facility] ([id number])[address], [address] [place] [address] Chloride [Moles/Vol] 104 mmol/L Normal 98-109 [facility] Comment on above: Performed By: #### C TRE, , CBCA ####[facility] ([id number])[address] [place] [address] 50833#### HA1C ####[facility] ([id number])[address], [address] [place] [address] CO2 [Moles/Vol] 26 mmol/L Normal 22-32 [facility] Comment on above: Performed By: #### C TRE, , CBCA ####[facility] ([id number])[address] [place] [address] 12548#### HA1C ####[facility] ([id number])[address], [address] [address] Creatinine [Mass/Vol] 0.71 mg/dL Normal 0.40-1.00 [facility] Comment on above: Result Comment: METH OD TRACEABLE TO IDMS STANDARD Performed By: #### C TRE, , CBCA ####[facility] ([id number])[address] [place] [address] 42786#### HA1C ####[facility] ([id number])[facility], [address] [address] eGFR (CKD-EPI) NON-RACE DEPENDENT >90 Normal >59 [facility] Comment on above: Result Comment: Reported eGFR is based on the CKD-EPI 2020 equation that does not use a race coefficient. Performed By: #### Cherie [place], , CBCA ####[facility] ([id number])[address] [place] [address] 00364#### HA1C ####[facility] ([id number])[address] [address] Glucose [Mass/Vol] 259 mg/dL High 65-99 [facility] Comment on above: Performed By: #### C TRE, , CBCA ####[facility] ([id number])[address] [place] [address] 93206#### HA1C ####[facility] ([id number])[address] [address] Potassium [Moles/Vol] 3.7 mmol/L Normal 3.5-5.0 [facility] Comment on above: Performed By: #### Cherie [place], , CBCA ####[facility] ([id number])[address] [place] [address] 50088#### HA1C ####[facility] ([id number])[address], [address] [place] [address]20 Protein [Mass/Vol] 5.7 g/dL Low 6.0-8.0 [facility] Comment on above: Performed By: #### Cherie [place], , CBCA ####[facility] ([id number])[address] [place] [address] 33351#### HA1C ####[facility] ([id number])0 [facility], [address] [place] [address] 17989 Sodium [Moles/Vol] 138 mmol/L Normal 134-146 [facility] Comment on above: Performed By: #### Cherie [place], , CBCA ####[facility] ([id number])[address] [place] [address] 66959#### HA1C ####[facility] ([id number])0 [facility], [address] [place] [address] Urea nitrogen [Mass/Vol] 15 mg/dL Normal 5-23 [facility] Comment on above: Performed By: #### Cherie [place], , CBCA ####[facility] ([id number])[address] [place] [address] 08764#### HA1C ####[facility] ([id number])[address], [address] [place] [address]957 Glucose Glucometer (BldC) [M ass/Vol]on 03-09-2024 Glucose [Mass/Vol] 318 mg/dL High 65-99 [facility] HGB A1C (GLYCO-HGB)on 2024 Glucose [Mass/Vol] 329 mg/dL Normal [facility] Comment on above: Performed By: #### Cherie [place], , CBCA ####[facility] ([id number])[address] [place] [address] 91916#### HA1C ####[facility] ([id number])[facility]0 [facility], [address] [place] [address] HbA1c (Bld) [Mass fraction] 13.1 % High 4.4-5.6 [facility] Comment on above: Result Comment: NOTE ADA Guidelines Result HgbA1c Normal : less than 5.7 % Prediabetes : 5.7 % to 6.4 % Diabetes : > 6.4 % Use with caution in patients with abnormal hemoglobin variants as the half-life of red blood cells and in vivo glycation rates are affected. Performed By: #### C TRE, 51114-9, CBCA ####[facility] ([id number])[address] [place] [address]#### HA1C ####[facility] ([id number])[address] [place] [address] MAGNESIUMon 03-09-2024 Magnesium [Mass/Vol] 1.9 mg/dL Normal 1.8-2.6 [facility] Comment on above: Performed By: #### Cherie [place], 12174-2, CBCA ####[facility] ([id number])[address] [place] [address] 72103#### HA1C ####[facility] ([id number])[address] [address] CBC AND AUTO DIFFon 03-08-19 25 ABSOLUTE BASOPHIL 0.0 X10E9/L Normal 0.0-0.2 [facility] Comment on above: Performed By: #### Cherie [place], 3040-3, 11162-7, CBCA #### [facility] ([id number]) [address] [place] [address] ABSOLUTE NEUTROPHIL 3.4 X10E9/L Normal 1.5-6.6 [facility] Comment on above: Performed By: #### C TRE, 3039-04, , CBCA #### [facility] ([id number]) [address] [place] [address] Basophils/100 WBC (Bld) 0.5 % Normal [facility] Comment on above: Performed By: #### C TRE, 3039-04, , CBCA #### [facility] ([id number]) [address] [place] [address] 27030 Eosinophils (Bld) [#/Vol] 0.0 10*3/uL Normal 0.0-0.4 [facility] Comment on above: Performed By: #### C TRE, 3039-04, , CBCA #### [facility] ([id number]) [address] [place] [address] 75399 Eosinophils/100 WBC (Bld) 0.0 % Normal [facility] Comment on above: Performed By: #### C TRE, 3039-04, , CBCA #### [facility] ([id number]) [address] [place] [address] 22800 Erythrocyte distribution width (RBC) [Ratio] 13.7 % Normal 11.5-15.0 [facility] Comment on above: Performed By: #### C TRE, 3039-04, , CBCA #### [facility] ([id number]) [address] [place] [address] 39453 Hematocrit (Bld) [Volume fraction] 46.1 % Normal 35-47 [facility] Comment on above: Performed By: #### C TRE, 3039-04, , CBCA #### [facility] ([id number]) [address] [place] [address] 75234 Hemoglobin (Bld) [Mass/Vol] 15.8 g/dL High 11.7-15.5 [facility] Comment on above: Performed By: #### C TRE, 3039-04, , CBCA #### [facility] ([id number]) [address] [place] [address] 44651 Lymphocytes (Bld) [#/Vol] 1.8 10*3/uL Normal 1.0-3.5 [facility] Comment on above: Performed By: #### C TRE, 3039-04, , CBCA #### [facility] ([id number]) [address] [place] [address] 11246 Lymphocytes/100 WBC (Bld) 32.3 % Normal [facility] Comment on above: Performed By: #### C TRE, 3039-04, , CBCA #### [facility] ([id number]) [address] [place] [address] 17429 MCH (RBC) [Entitic mass] 32.2 pg Normal 27-34 [facility] Comment on above: Performed By: #### C TRE, 3039-04, , CBCA #### [facility] ([id number]) [address] [place] [address] 63175 MCHC (RBC) [Mass/Vol] 34.3 g/dL Normal 32-36 [facility] Comment on above: Performed By: #### C TRE, 3039-04, , CBCA #### [facility] ([id number]) [address] [place] [address] 06135 MCV (RBC) [Entitic vol] 94 fL Normal 80-100 [facility] Comment on above: Performed By: #### C TRE, 3039-04, , CBCA #### [facility] ([id number]) [address] [place] [address] 76884 Monocytes (Bld) [#/Vol] 0.2 10*3/uL Normal 0-0.9 [facility] Comment on above: Performed By: #### C TRE, 3039-04, , CBCA #### [facility] ([id number]) [address] [place] [address] 84835 Monocytes/100 WBC (Bld) 3.9 % Normal [facility] Comment on above: Performed By: #### C TRE, 3039-04, , CBCA #### [facility] ([id number]) [address] [place] [address] 26251 Neutrophils/100 WBC (Bld) 63.3 % Normal [facility] Comment on above: Performed By: #### C TRE, 3039-04, , CBCA #### [facility] ([id number]) [address] [place] [address] 77637 Platelet mean volume (Bld) [Entitic vol] 10.4 fL Normal 7-12 [facility] Comment on above: Performed By: #### C TRE, 3039-04, , CBCA #### [facility] ([id number]) [address] [place] [address] 24825 Platelets (Bld) [#/Vol] 93 10*3/uL Low 150-450 [facility] Comment on above: Result Comment: PLAT ELETS REVIEWED Performed By: #### C TRE, 3039-04, , CBCA #### [facility] ([id number]) [address] [place] [address] 57407 RBC COUNT 4.91 X10E12/L Normal 3.80-5.20 [facility] Comment on above: Performed By: #### C TRE, 3039-04, , CBCA #### [facility] ([id number]) [address] [place] [address] 53627 WBC (Bld) [#/Vol] 5.4 10*3/uL Normal 4.0-11.0 [facility] Comment on above: Performed By: #### C TRE, 3, , CBCA #### [facility] ([id number]) [address] [place] [address] 25418 COMPREHENSIVE METABOLIC PANE [place] 03-08-2024 Albumin [Mass/Vol] 4.4 g/dL Normal 3.2-5.3 [facility] Comment on above: Performed By: #### C TRE, 3039-04, , CBCA #### [facility] ([id number]) [address] [place] [address] 49648 ALP [Catalytic activity/Vol] 83 U/L Normal 39-130 [facility] Comment on above: Performed By: #### C TRE, 3039-04, , CBCA #### [facility] ([id number]) [address] [place] [address] 78833 ALT [Catalytic activity/Vol] 33 U/L High 0-31 [facility] Comment on above: Performed By: #### C TRE, 3, , CBCA #### [facility] ([id number]) [address] [place] [address] [place] [address] Anion gap [Moles/Vol] 13 mmol/L Normal 5-15 [facility] Comment on above: Performed By: #### C TRE, 3, , CBCA #### [facility] ([id number]) [address] [place] [address] 67163 AST [Catalytic activity/Vol] 33 U/L Normal 0-41 [facility] Comment on above: Performed By: #### C TRE, 3039-04, , CBCA #### [facility] ([id number]) [address] [place] [address] 29183 Bilirubin [Mass/Vol] 1.6 mg/dL High 0.3-1.2 [facility] Comment on above: Performed By: #### C TRE, 3039-04, , CBCA #### [facility] ([id number]) [address] [place] [address] 07527 Calcium [Mass/Vol] 9.5 mg/dL Normal 8.5-10.5 [facility] Comment on above: Performed By: #### C TRE, 3039-04, , CBCA #### [facility] ([id number]) [address] [place] [address] 25930 Chloride [Moles/Vol] 100 mmol/L Normal 98-109 [facility] Comment on above: Performed By: #### C TRE, 3039-04, , CBCA #### [facility] ([id number]) [address] [place] [address] 76221 CO2 [Moles/Vol] 24 mmol/L Normal 22-32 [facility] Comment on above: Performed By: #### C TRE, 3039-04, , CBCA #### [facility] ([id number]) [address] [place] [address] 62910 Creatinine [Mass/Vol] 0.81 mg/dL Normal 0.40-1.00 [facility] Comment on above: Result Comment: METH OD TRACEABLE TO IDMS STANDARD Performed By: #### C TRE, 3039-04, , CBCA #### [facility] ([id number]) [address] [place] [address] 14149 GFR/1.73 sq M.predicted among non-blacks MDRD (S/P/Bld) [Vol rate/Area] 84 mL/min/{1.73_m2} Normal >59 [facility] Comment on above: Result Comment: Reported eGFR is based on the CKD-EPI 2020 equation that does not use a race coefficient. Performed By: #### C TRE, 3039-04, , CBCA #### [facility] ([id number]) [address] [place] [address] 50803 Glucose [Mass/Vol] 372 mg/dL High 65-99 [facility] Comment on above: Performed By: #### C TRE, 3039-04, , CBCA #### [facility] ([id number]) [address] [place] [address] 45604 Potassium [Moles/Vol] 4.2 mmol/L Normal 3.5-5.0 [facility] Comment on above: Performed By: #### Cherie TOLEDO, 3039-04, , CBCA #### [facility] ([id number]) [address] [place] [address] 41504 Protein [Mass/Vol] 7.6 g/dL Normal 6.0-8.0 [facility] Comment on above: Performed By: #### C TRE, 3039-04, , CBCA #### [facility] ([id number]) [address] [place] [address] 00067 Sodium [Moles/Vol] 137 mmol/L Normal 134-146 [facility] Comment on above: Performed By: #### C TRE, 3039-04, , CBCA #### [facility] ([id number]) [address] [place] [address] 69088 Urea nitrogen [Mass/Vol] 17 mg/dL Normal 5-23 [facility] Comment on above: Performed By: #### Cherie TOLEDO, 3039-04, , CBCA #### [facility] ([id number]) [address] [place] [address] CT ABDOMEN AND PELVIS W CONT on 03-08-2024 CT ABDOMEN AND PELVIS W CONT CT ABDOMEN AND PELVIS W CONT CT ABDOMEN AND PELVIS W CONT CLINICAL HISTORY:Bowel obstruction suspected; history of umbilical hernia concern for obstruction COMPARISON: None. TECHNIQUE: CT abdomen and pelvis was performed utilizing the standard protocol following the uneventful administration of 100 cc Omnipaque 300 nonionic intravenous contrast. Coronal and sagittal reformatted images were generated and reviewed. Automated exposure control was utilized. FINDINGS: No acute findings lower thorax. Hepatomegaly with subtle morphologic features of chronic hepatocellular disease. Splenmegaly, 18 cm. Cholecystectomy. No acute appearing occlusion the major visceral vasculature. Normal adrenal glands. Pancreatic parenchymal volume loss without peripancreatic inflammatory change.No renal collecting system dilatation. Grossly unremarkable kidneys. Hysterectomy. No substantial dilatation or wall thickening the bowel. Borderline small bowel loops in the left upper quadrant of the abdomen without high-grade transition point. Ekta-pw-itsrveme colonic stool burden. Nonvisualized appendix. No pericecal inflammatory change. No acute appearing occlusion the major visceral vasculature. Multilevel cement augmentation, T12, L1, L3. Levoconvex lumbar curvature. No aggressive osseous lesions. IMPRESSION: 1. No convincing features to suggest bowel obstruction. Borderline dilated left abdominal small bowel loops without high-grade transition point. If there is persistent concern for obstruction, consider Gastrografin challenge. 2. Hepatosplenomegaly, morphologic features of chronic hepatocellular disease. All CT scans at this facility use dose modulation, iterative reconstruction, and/or weight based dosing when appropriate to reduce radiation dose to as low as reasonably achievable. Finalized by Zack Jaquez MD on 03/08/2024 2:02 PM Normal [facility] LIPASEon 03-08-2024 Lipase [Catalytic activity/Vol] 26 U/L Normal 17-40 [facility] Comment on above: Performed By: #### C MP, 3040-3, 10486-4, CBCA #### [facility] ([id number]) [address] [place] [address] 55802 Lactate (P quynh) [Moles/Vol]o n 03-08-2024 Lactate [Moles/Vol] 1.2 mmol/L Normal 0.4-2.0 [facility] Comment on above: Performed By: #### 3 2133-1 ####[facility] ([id number])[address] [place] [address] LACTATE W/REFLEX 2.1 mmol/L High 0.4-2.0 [facility] Comment on above: Performed By: #### 3 2133-1 #### [facility] ([id number]) [address] [place] [address] MAGNESIUMon 03-08-2024 Magnesium [Mass/Vol] 1.6 mg/dL Low 1.8-2.6 [facility] Comment on above: Performed By: #### C MP, 3040-3, 02120-9, CBCA #### [facility] ([id number]) [address] [place] [address] CT CTA COR ARTERIES W OR WO SCORINGon 02-15-2024 CT CTA COR ARTERIES W OR WO SCORING CT CTA COR ARTERIES W OR WO SCORING CLINICAL INFORMATION: Chest pain. TECHNIQUE: Computed tomography (CT) of the heart was obtained using electrocardiography (ECG) triggering. 100 mL of Omni 350 contrast was administered intravenously. In preparation for the examination, the patient received 20 mg oral metoprolol for heart rate/rhythm control and 0.4 mg sublingual nitroglycerin tablet for coronary vasodilation. There were no complications 3-D volume rendered maximum intensity projection images were generated and reviewed under concurrent physician supervision on an independent workstation.. No FFR performed. All CT scans at this facility use dose modulation, iterative reconstruction, and/or weight based dosing when appropriate to reduce radiation dose to as low as reasonably achievable. COMPARISON: No relevant prior studies available. EXTRACARDIAC FINDINGS: Minimal basilar atelectasis and scarring. No effusions. Aorta is normal. No enlarged lymph nodes. Mild degenerative changes. Small pericardial effusion. CALCIUM SCORE: Agatston Score: The total (aggregate) calcium score using the AJ-130 method is 3.6. Total volume score is 2.7. Between 50 and 75% of similar patients have less coronary artery calcium {this is reported using the interactive ASENCIO form found at http://www.asencio-nhlbi. org} Individual major vessel AJ-130 scores are: LM = 0 LAD = 0 LCX = 3.6 RCA/PDA = 0 Other = [address] ANGIOGRAM: The overall quality of the CT angiographic examination is good. Coronary Artery Angiogram Findings: Stenoses are reported as maximum percentage diameter stenosis. Stenosis grading is reported using the following scheme: Normal: no stenosis Mild: 1-49% stenosis Moderate: 50-70% stenosis Severe: >70% stenosis Occluded The coronary artery system is right dominant with normal origins. The LM has no stenosis with no plaque. The proximal LAD has noncalcified plaque with no significant stenosis. Diagonal branches are unremarkable. Mid LAD demonstrates some myocardial bridging. The left circumflex has mixed plaque with mild stenosis. The right coronary artery demonstrates noncalcified plaque with mild stenosis. IMPRESSION: Atherosclerotic coronary artery disease as above with areas of mild stenosis. No FFR performed. Total calcium score of 3.6; between 50 and 75% of similar patients have less coronary artery calcium. The coronary arteries and cardiac structures were co-interpreted by Dr. Kumar Santo MD of the department of radiology and Dr. Chavez of the department of cardiology. The extracardiac structures including the lungs were solely interpreted by Dr. Kumar Santo MD of the department of radiology. __ Calcium Score interpretation and guidelines for asymptomatic individuals, 45 - 75 years of age are as follows: Estimated Risk of a Total Score Relative Risk Coronary Event Each Year __ 0 very low risk 2 per 1000 1-10 low risk 5 per 1000 11-100 intermediate risk 5 to 20 per 1000 101-400 moderately high risk more than 2 per 100 over 400 high risk between 2 and 5 per 100; approximately 15% chance of significant blockages; consideration should be given to obtaining stress echo or stress nuclear testing. __ Finalized by Kumar Satno MD on 02/15/2024 6:02 PM Normal [facility] CREATININEon 02-07-2024 Creatinine [Mass/Vol] 0.81 mg/dL Normal 0.40-1.00 [facility] Comment on above: Result Comment: METH OD TRACEABLE TO IDMS STANDARD Performed By: #### C RT #### [facility] ([id number]) [address] [place] [address], [address] [address] GFR/1.73 sq M.predicted among non-blacks MDRD (S/P/Bld) [Vol rate/Area] 84 mL/min/{1.73_m2} Normal >59 [facility] Comment on above: Result Comment: Reported eGFR is based on the CKD-EPI 2020 equation that does not use a race coefficient. Performed By: #### C RT #### [facility] ([id number]) [address] [place] [address], [address] [address] CREATININEon 12-22-2023 Creatinine [Mass/Vol] 0.95 mg/dL Normal 0.40-1.00 [facility] Comment on above: Result Comment: METH OD TRACEABLE TO IDMS STANDARD Performed By: #### C RT #### [facility] ([id number]) [address] [place] [address] 88744 GFR/1.73 sq M.predicted among non-blacks MDRD (S/P/Bld) [Vol rate/Area] 69 mL/min/{1.73_m2} Normal >59 [facility] Comment on above: Result Comment: Reported eGFR is based on the CKD-EPI 2020 equation that does not use a race coefficient. Performed By: #### C RT #### [facility] ([id number]) [address] [place] [address] ABDOMEN AND PELVIS W CONT on 12-22-2023 CT ABDOMEN AND PELVIS W CONT CT ABDOMEN AND PELVIS W CONT CT ABDOMEN AND PELVIS W CONT CLINICAL HISTORY:Endometrial cancer determined by uterine biopsy (CMS-HCC); Other cirrhosis of liver (CMS-HCC); Thrombocytopenia (CMS-HCC); Endometrial carcinoma (CMS-HCC); Hepatosplenomegaly COMPARISON: 11/21/21. TECHNIQUE: CT abdomen and pelvis was performed utilizing the standard protocol following the uneventful administration of 100 cc Omnipaque 300 nonionic intravenous contrast. Coronal and sagittal reformatted images were generated and reviewed. Automated exposure control was utilized. FINDINGS: No acute findings lower thorax. Morphologic features of chronic hepatocellular disease. Normal adrenal glands, kidneys. Pancreatic parenchymal volume loss without peripancreatic inflammatory change. Spleen measures 17 cm. Hysterectomy. Suggestion of pelvic floor weakness. No dilatation or wall thickening the bowel. Normal appendix. No new or growing adenopathy. No aggressive osseous lesions. Multilevel cement augmentation. Notable posterior facet arthropathy at left greater than right L5-S1. IMPRESSION: 1. No metastatic disease to the abdomen or pelvis. 2. Morphologic features chronic hepatocellular disease. Splenmegaly. No ascites. All CT scans at this facility use dose modulation, iterative reconstruction, and/or weight based dosing when appropriate to reduce radiation dose to as low as reasonably achievable. Finalized by Zack Jaquez MD on 12/22/2023 9:15 PM Normal [facility] IR REMOVE PORTon 06-20-2023 IR REMOVE PORT [...] Oscar Chua on 06/20/2023 3:31 PM Normal [facility] Office Visiton 02-15-2022 Follow-up visit [id number] Adenike Kay 1965 F Date Provider Department Center 02/15/2022 [facility] SURG [place] Family History Problem Relation Age of Onset Hypertension Mother Hypertension Father Family Status - Relation Status Age at Mother Father Level of Service:18635 [place] OFFICE/OUTPATIENT NEW LOW [facility] 30-44 MINUTES Reason for Visit and Comments: Consult [484] - Nasal fracture 1 yr ago s/p fall. Normal [facility] CULTURE URINEon 11-01-2021 CULTURE URINE Isolate 1 Klebsiella pneumoniae >100,000 cfu/mL of ORGANISM 1 Klebsiella pneumoniae ANTIBIOTIC M.I.C RX STATUS Ampicillin 16 R F Ampicillin/Sulbactam 4 S F Piperacillin/Tazobacta m <=4 S F Cefazolin <=4 S F Ceftazidime <=1 S F Ceftriaxone <=1 S F Ertapenem <=0.5 S F Imipenem <=0.25 S F Amikacin <=2 S F Gentamicin <=1 S F Tobramycin <=1 S F Ciprofloxacin <=0.25 S F Levofloxacin <=0.12 S F Nitrofurantoin <=16 S F Trimethoprim/Sulfameth oxazole <=20 S F Normal [facility] Comment on above: Performed By: #### U RCX #### [facility] [address] [place] [address] Dr. Robert LOZA URINE PROFILEon 2 Bilirubin Ql (U) Negative Normal NEGATIVE [facility] Comment on above: Performed By: #### E FRITZ UMICRO #### [facility] [address] [place] [address] Dr. Robert Buchanan Clarity (U) SL CLOUDY Abnormal CLEAR [facility] Comment on above: Performed By: #### Tameka HU UMICRO #### [facility] [address] [place] [address] Dr. Robert Buchanan Color (U) LT. YELLOW Normal YELLOW [facility] Comment on above: Performed By: #### Tameka HU UMICRO #### [facility] [address] [place] [address] Dr. Robert JAMES A micrscopic examination will be performed if indicated. Normal [facility] Comment on above: Performed By: #### Tameka HU UMICRO #### [facility] [address] [place] [address] Dr. Robert Buchanan Glucose Ql (U) 1000 mg/dl Abnormal NEGATIVE [facility] Comment on above: Performed By: #### Tameka HU UMICRO #### [facility] [address] [place] [address] Dr. Robert Buchanan Hemoglobin Ql (U) SMALL Abnormal NEGATIVE [facility] Comment on above: Performed By: #### Tameka RUR UMICRO #### [facility] [address] [place] [address] Dr. Robert Buchanan Ketones Ql (U) Negative Normal NEGATIVE [facility] Comment on above: Performed By: #### Tameka RUR UMICRO #### [facility] [address] [place] [address] Dr. Robert Buchanan LEUKOCYTES SMALL Abnormal NEGATIVE [facility] Comment on above: Performed By: #### ANGEL APONTERO #### [facility] [address] [place] [address] Dr. Robert Buchanan Nitrite Ql (U) Positive Abnormal NEGATIVE [facility] Comment on above: Performed By: #### ANGEL APNOTERO #### [facility] [address] [address] [address] Robert Buchanan pH (U) 5.5 [pH] Normal 5-9 [facility] Comment on above: Performed By: #### ANGEL APONTERO #### [facility] [address] [place] [address] Dr. Robert Buchanan SPEC GRAVITY 1.020 Normal 1.005-<=1.025 [facility] Comment on above: Performed By: #### ANGEL APONTERO #### [facility] [address] [place] [address] Dr. Robert Buchanan UA PROTEIN Negative Normal NEGATIVE/ TRACE [facility] Comment on above: Performed By: #### ANGEL APONTERO #### [facility] [address] [place] [address] Dr. Robert Buchanan UR MICRO IND INDICATED Normal [facility] Comment on above: Performed By: #### MARTIN APONTE #### [facility] [address] [place] [address] Dr. Robert Buchanan Urobilinogen Qn (U) 0.2 {Rachael'U}/dL Normal 0.2 - 1. 0 [facility] Comment on above: Performed By: #### ANGEL APONTERO #### [facility] [address] [place] [address] Dr. Robert Buchanan POINT OF CARE GLUCOSEon Glucose [Mass/Vol] 335 mg/dL Critically high 74-106 [facility] Comment on above: Performed By: #### P OCGLUC #### [facility] [address] [place] [address] Dr. Robert Buchanan URINE MICROSCOPIC ONLYon BACTERIA MODERATE Abnormal NONE SEEN [facility] Comment on above: Performed By: #### Tameka HU UMICRO #### [facility] [address] [place] [address] Dr. Robert Buchanan Bacteria identified Cx Nom (U) INDICATED Normal [facility] Comment on above: Performed By: #### Tameka HU UMICRO #### [facility] [address] [place] [address] Dr. Robert Buchanan CAST NONE SEEN Normal NONE SEEN [facility] Comment on above: Performed By: #### Tameka HU UMICRO #### [facility] [address] [place] [address] Dr. Robert Buchanan Crystals LM Nom (Urine sed) NONE SEEN Normal NONE SEEN [facility] Comment on above: Performed By: #### PRINCESS APONTEICRO #### [facility] [address] [place] [address] Dr. Robert Buchanan Epithelial cells LM Ql (Urine sed) FEW Abnormal NONE SEEN /RARE [facility] Comment on above: Performed By: #### Tameka HU UMICRO #### [facility] [address] [place] [address] Dr. Robert Buchanan MUCOUS NONE SEEN Normal NONE SEEN [facility] Comment on above: Performed By: #### PRINCESS APONTEICRO #### [facility] [address] [place] [address] Dr. Robert Buchanan RBC 0-2 Normal 0-2 [facility] Comment on above: Performed By: #### PRINCESS APONTEICRO #### [facility] [address] [place] [address] Dr. Robert Buchanan WBC 5-10 Abnormal NONE SEEN [facility] Comment on above: Performed By: #### Tameka HU UMICRO #### [facility] [address] [place] [address] Dr. Robert Buchanan EBV, Quant. PCRon 09-18-2021 EBV, Quant. Source .BLOOD Normal [facility] Comment on above: Performed By: #### A CMVDN #### [facility] [address] [place], [place] 9[address] Beef Lugger: Kevin Sanches MD [address] [phone] Beef Lugger: Satinder Richardson MD #### NELA MARIN #### [address] [address] Beef Lugger: Satinder Richardson MD #### TRFE, ANASCN, FERI, PHEP, CER, LIVP, AMAB #### [address] [phone] Beef Lugger: Cisco Andrade MD #### PT #### [address] [address] Beef Lugger: Kevin Sanches MD #### AEBVQ #### [address] [id number] Beef Lugger: Cisco Andrade MD [address] [address] Beef Lugger: Satinder Richardson MD A1 Antitrypsin Phenoon 09-13 A1 Antitryp Phenotype M1M2 Normal [facility] Comment on above: Result Comment: (NOT E) The patient appears to have a normal phenotype. All M alleles (including subtypes M1, M2, and M3) produce normal serum concentrations of hneqg-4-[id number] inhibitor and are not associated with clinical disease. Caution in interpretation is advised if the patient has been transfused within the previous 21 days. Performed By: [facility] [address] [place] [address] Power Barker Operator: Reza Guajardo MD, PhD Performed By: #### A CMVDN #### [facility] [address] [place] [address] Beef Lugger: Kevin Sanches MD [address] [address] Beef Lugger: Satinder Richardson MD #### NELA MARIN #### [facility] [address] [place] [address] Beef Lugger: Satinder Richardson MD #### ELLYN, OSBALDO NAVARRETEI, PHEP, CER, LIVP, AMAB #### [address] [phone] Beef Lugger: Cisco Andrade MD #### PT #### [address] [phone] Beef Lugger: Kevin Sanches MD #### AEBVQ #### [address] [address] Beef Lugger: Cisco Andrade MD [address] [phone] Beef Lugger: Satinder Richardson MD A1 Antitrypsin 150 mg/dL Normal 90-200 [facility] Comment on above: Result Comment: To c onvert to umol/L, multiply mg/dL by 0.185 Performed By: #### A CMVDN #### [address] [address] Beef Lugger: Keivn Sanches MD [address] [phone] Beef Lugger: Satinder Richardson MD #### TOMAS AASIsidroF #### [facility] [address] [place] [address] Beef Lugger: Satinder Richardson MD #### ELLYN, ANNEMARIE NAVARRETE, PHEP, CER, LIVP, AMAB #### [address] [phone] Beef Lugger: Cisco Andrade MD #### PT #### [address] [phone] Beef Lugger: Kevin Sanches MD #### AEBVQ #### [address] [phone] Beef Lugger: Cisco Andrade MD [address] [phone] Beef Lugger: Satinder Richardson MD Anti-Mitochondrial Abon - Anti-Mitochondrial Ab 1.1 U/mL Normal 0.0-4.0 [facility] Comment on above: Result Comment: Reference Range: <4.0 Negative 4.0-6.0 Equivocal >6.0 Positive When results are Equivocal, it is recommended to retest after 8-12 weeks. Performed By: #### A CMVDN #### [place] [phone] Beef Lugger: Kevin Sanches MD [place] [phone] Beef Lugger: Satinder Richardson MD #### AATRPH, AASMF #### [address] [address] Beef Lugger: Satinder Richardson MD #### TRFE, ANASCN, FERI, PHEP, CER, LIVP, AMAB #### [address] [phone] Beef Lugger: Csico Andrade MD #### PT #### [address] [phone] Beef Lugger: Kevin Sanches MD #### AEBVQ #### [address] [phone] Beef Lugger: Cisco Andrade MD [address] [phone] Beef Lugger: Satinder Richardson MD CMV Quant by PCRon 2 CMV by PCR Interp Not detected Normal Not Detected [facility] Comment on above: Result Comment: (NOT E) NOT DETECTED - A negative result does not rule out the presence of PCR inhibitors in the patient specimen or assay specific nucleic acid in concentrations below the level of detection by the assay. Performed by [facility], [address] [place], [place] [id number] [email or web address], Reza Guajardo MD, PHD, Lab. Director Performed By: #### A CMVDN #### [address] [address] Beef Lugger: Kevin Sanches MD [place] [phone] Beef Lugger: Satinder Richardson MD #### AATRPH, AASMF #### [place] [phone] Beef Lugger: Satinder Richardson MD #### TRFE, ANASCN, FERI, PHEP, CER, LIVP, AMAB #### [address] [phone] Beef Lugger: Cisco Andrade MD #### PT #### [address] [address] Beef Lugger: Kevin Sanches MD #### AEBVQ #### [address] [phone] Beef Lugger: Cisco Andrade MD [place] [phone] Beef Lugger: Satinder Richardson MD CMV Quant <2.6 Normal [facility] Comment on above: Result Comment: (NOT [...] developed and its performance characteristics determined by [employer]. It has not been cleared or approved by the [place] Food and Drug Administration. This test was performed in a CLIA certified laboratory and is intended for clinical purposes. Performed By: #### A CMVDN #### [address] [id number] Beef Lugger: Kevin Sanches MD [address] [phone] Beef Lugger: Satinder Richardson MD #### AATRPH, AASMF #### [address] [phone] Beef Lugger: Satinder Richardson MD #### TRFE, ANARICHARDN, FERI, PHEP, CER, LIVP, AMAB #### [address] [phone] Beef Lugger: Cisco Andrade MD #### PT #### [address] [phone] Beef Lugger: Kevin Sanches MD #### AEBVQ #### [address] [phone] Beef Lugger: Cisco Andrade MD [address] [address] Beef Lugger: Satinder Richardson MD CMV Quant Copy/mL <390 Normal [facility] Comment on above: Performed By: #### A CMVDN #### [address] [place], [place] [phone] Beef Lugger: Kevin Sanches MD [facility] [address] [place] [address] [phone] Beef Lugger: Satinder Richardson MD #### GRAY MARINF #### [facility] [address] [place] [address] [phone] Beef Lugger: Satinder Richardson MD #### TRSHEEBA, ROSALBA, FERI, PHEP, CER, LIVP, AMAB #### [address] [phone] Beef Lugger: Cisco Andrade MD #### PT #### [address] [phone] Beef Lugger: Kevin Sanches MD #### AEBVQ #### [address] [phone] Beef Lugger: Cisco Andrade MD [facility] [address] [place] [address] [phone] Beef Lugger: Satinder Richardson MD CMV Quant IU/mL <227 Normal [facility] Comment on above: Performed By: #### A CMVDN #### [address] [phone] Beef Lugger: Kevin Sanches MD [facility] [address] [place] [address] [phone] Beef Lugger: Satinder Richardson MD #### GRAY MARINF #### [facility] [address] [place] [address] [phone] Beef Lugger: Satinder Richardson MD #### TRSHEEBA, ANASCN, FERI, PHEP, CER, LIVP, AMAB #### [address] [address] Beef Lugger: Cisco Andrade MD #### PT #### [address] [phone] Beef Lugger: Kevin Sanches MD #### AEBVQ #### [address] [phone] Beef Lugger: Cisco Andrade MD [address] [phone] Beef Lugger: Satinder Richardson MD CMV Quant Log IU/mL <2.4 Normal [facility] Comment on above: Performed By: #### A CMVDN #### [place] [address] Beef Lugger: Kevin Sanches MD [address] [phone] Beef Lugger: Satinder Richardson MD #### AATRPH, AASMF #### [address] [phone] Beef Lugger: Satinder Richardson MD #### TRFE, ANASCN, FERI, PHEP, CER, LIVP, AMAB #### [address] [phone] Beef Lugger: Cisco Andrade MD #### PT #### [address] [phone] Beef Lugger: Kevin Sanches MD #### AEBVQ #### [address] [phone] Beef Lugger: Cisco Andrade MD [address] [address] Beef Lugger: Satinder Richardson MD EBV, Quant. PCRon 09-11-2021 EBV, Quant. Copy/mL <390 Normal [facility] Comment on above: Performed By: #### A CMVDN #### [address] [address] Beef Lugger: Kevin Sanches MD [address] [phone] Beef Lugger: Satinder Richardson MD #### AATRPH, AASMF #### [address] [phone] Beef Lugger: Satinder Richardson MD #### TRFE, ANASCN, FERI, PHEP, CER, LIVP, AMAB #### [address] [phone] Beef Lugger: Cisco Andrade MD #### PT #### [address] [phone] Beef Lugger: Kevin Sanches MD #### AEBVQ #### [address] [address] Beef Lugger: Cisco Andrade MD [address] [phone] Beef Lugger: Satinder Richardson MD EBV, Quant. Interp Not detected Normal Not Detected [facility] Comment on above: Result Comment: (NOT E) NOT DETECTED - A negative result does not rule out the presence of PCR inhibitors in the patient specimen or assay specific nucleic acid in concentrations below the level of detection by the assay. Performed by [facility] [phone] [email or web address], Reza Guajardo MD, PHD, Lab. Director Performed By: #### A CMVDN #### [address] [address] Beef Lugger: Kevin Sanches MD [address] [phone] Beef Lugger: Satinder Richardson MD #### AATRPH, AASMF #### [address] [phone] Beef Lugger: Satinder Richardson MD #### TRFE, ANASCN, FERI, PHEP, CER, LIVP, AMAB #### [address] [phone] Beef Lugger: Cisco Andrade MD #### PT #### [address] [address] Beef Lugger: Kevin Sanches MD #### AEBVQ #### [address] [phone] Beef Lugger: Cisco Andrade MD [address] [phone] Beef Lugger: Satinder Richardson MD EBV, Quant. Log <2.6 Normal [facility] Comment on above: Result Comment: (NOT [...] developed and its performance characteristics determined by [employer]. It has not been cleared or approved by the [place] Food and Drug Administration. This test was performed in a CLIA certified laboratory and is intended for clinical purposes. Performed By: #### A CMVDN #### [address] [phone] Beef Lugger: Kevin Sanches MD [address] [phone] Beef Lugger: Satinder Richardson MD #### NELA MARIN #### [facility] [address] [place] [address] Beef Lugger: Satinder Richardson MD #### TRFE, ANASCN, FERI, PHEP, CER, LIVP, AMAB #### [address] [phone] Beef Lugger: Cisco Andrade MD #### PT #### [address] [phone] Beef Lugger: Kevin Sanches MD #### AEBVQ #### [address] [phone] Beef Lugger: Cisco Andrade MD [address] [address] Beef Lugger: Satinder Richardson MD ASHLEY Screenon 09-10-2021 ASHLEY Screen Negative Normal NEG [facility] Comment on above: Performed By: #### A CMVDN #### [address] [phone] Beef Lugger: Kevin Sanches MD [address] [phone] Beef Lugger: Satinder Richardson MD #### NELA MARIN #### [facility] [address] [place] [address] Beef Lugger: Satinder Richardson MD #### ELLYN, ROSALBA, FERI, PHEP, CER, LIVP, AMAB #### [address] [phone] Beef Lugger: Cisco Andrade MD #### PT #### [address] [phone] Beef Lugger: Kevin Sanches MD #### AEBVQ #### [address] [phone] Beef Lugger: Cisco Andrade MD [address] [phone] Beef Lugger: Satinder Richardson MD Anti-dsDNA 0.9 IU/mL Normal <10.0 [facility] Comment on above: Result Comment: Reference Range: <10.0 Negative 10.0-15.0 Equivocal >15.0 Positive Performed By: #### A CMVDN #### [place] [address] Beef Lugger: Kevin Sanches MD [place] [phone] Beef Lugger: Satinder Richardson MD #### AATRPH, AASMF #### [place] [phone] Beef Lugger: Satinder Richardson MD #### TRFE, ANASCN, FERI, PHEP, CER, LIVP, AMAB #### [place] [address] Beef Lugger: Cisco Andrade MD #### PT #### [place] [address] Beef Lugger: Kevin Sanches MD #### AEBVQ #### [address] [phone] Beef Lugger: Cisco Andrade MD [address] [phone] Beef Lugger: Satinder Richardson MD JOYCE Screen 0.4 U/mL Normal <0.7 [facility] Comment on above: Result Comment: Reference Range: <0.7 Negative 0.7-1.0 Equivocal >1.0 Positive JOYCE Screen includes U1RNP,RNP70,Sm,Ro(SS-A),La(SS-B),CENP,Scl-70,Valeria-1 Performed By: #### A CMVDN #### [address] [phone] Beef Lugger: Kevin Sanches MD [address] [phone] Beef Lugger: Satinder Richardson MD #### AATRPH, AASMF #### [facility] [address] [place] [address] [phone] Beef Lugger: Satinder Richardson MD #### TRFE, ANASCN, FERI, PHEP, CER, LIVP, AMAB #### [address] [phone] Beef Lugger: Cisco Andrade MD #### PT #### [address] [phone] Beef Lugger: Kevin Sanches MD #### AEBVQ #### [address] [phone] Beef Lugger: Cisco Andrade MD [address] [phone] Beef Lugger: Satinder Richardson MD Smooth Muscle Abon 2 Smooth Muscle Ab 11 Units Normal 0-19 [facility] Comment on above: Result Comment: (NOT [...] suspicion for AIH is strong. Performed By: [employer] [address] [place] [address] Power Barker Operator: Reza Guajardo MD, PhD Performed By: #### A CMVDN #### [address] [address] Beef Lugger: Kevin Sanches MD [address] [address] Beef Lugger: Satinder Richardson MD #### AATRPH, AASMF #### [place] [address] Beef Lugger: Satinder Richardson MD #### TRFE, ANASCN, FERI, PHEP, CER, LIVP, AMAB #### [address] [phone] Beef Lugger: Cisco Andrade MD #### PT #### [address] [address] Beef Lugger: Kevin Sanches MD #### AEBVQ #### [address] [phone] Beef Lugger: Cisco Andrade MD [address] [phone] Beef Lugger: Satinder Richardson MD Ceruloplasminon 09-08-2021 Ceruloplasmin 24 mg/dL Normal 16-45 [facility] Comment on above: Performed By: #### A CMVDN #### [address] [phone] Beef Lugger: Kevin Sanches MD [facility] [address] [place] [address] [phone] Beef Lugger: Satinder Richardson MD #### GRAY MARINF #### [facility] [address] [place] [address] [phone] Beef Lugger: Satinder Richardson MD #### TRFE, ANASCN, FERI, PHEP, CER, LIVP, AMAB #### [address] [phone] Beef Lugger: Csico Andrade MD #### PT #### [address] [phone] Beef Lugger: Kevin Sanches MD #### AEBVQ #### [address] [phone] Beef Lugger: Cisco Andrade MD [address] [address] Beef Lugger: Satinder Richardson MD Ferritinon 09-08-2021 Ferritin [Mass/Vol] 86 ng/mL Normal 13-150 [facility] Comment on above: Performed By: #### A CMVDN #### [address] [phone] Beef Lugger: Kevin Sanches MD [facility] [address] [place] [address] Beef Lugger: Satinder Richardson MD #### GRAY MARINF #### [facility] [address] [place] [address] Beef Lugger: Satinder Richardson MD #### TRFE, ANASCN, FERI, PHEP, CER, LIVP, AMAB #### [address] [phone] Beef Lugger: Cisco Andrade MD #### PT #### [address] [phone] Beef Lugger: Kevin Sanches MD #### AEBVQ #### [address] [phone] Beef Lugger: Cisco Andrade MD [address] [phone] Beef Lugger: Satinder Richardson MD Liver Profileon 09-08-2021 Albumin [Mass/Vol] 4.3 g/dL Normal 3.5-5.2 [facility] Comment on above: Performed By: #### A CMVDN #### [address] [phone] Beef Lugger: Kevin Sanches MD [address] [phone] Beef Lugger: Satinder Richardson MD #### AATRPH, AASMF #### [address] [phone] Beef Lugger: Satinder Richardson MD #### TRFE, ANASCN, FERI, PHEP, CER, LIVP, AMAB #### [address] [phone] Beef Lugger: Cisco Andrade MD #### PT #### [address] [phone] Beef Lugger: Kevin Sanches MD #### AEBVQ #### [address] [phone] Beef Lugger: Cisco Andrade MD [address] [phone] Beef Lugger: Satinder Richardson MD Albumin/Glob Ratio 1.7 Normal 1.0-2.5 [facility] Comment on above: Performed By: #### A CMVDN #### [address] [phone] Beef Lugger: Kevin Sanches MD [facility] [address] [place] [address] [phone] Beef Lugger: Satinder Richardson MD #### NELA MARIN #### [facility] [address] [place] [address] [phone] Beef Lugger: Satinder Richardson MD #### ROSALBA RAGLAND FERI, PHEP, CER, LIVP, AMAB #### [address] [phone] Beef Lugger: Cisco Andrade MD #### PT #### [address] [address] Beef Lugger: Kevin Sanches MD #### AEBVQ #### [address] [phone] Beef Lugger: Cisco Andrade MD [address] [phone] Beef Lugger: Satinder Richardson MD Alkaline Phos 69 U/L Normal 35-104 [facility] Comment on above: Performed By: #### A CMVDN #### [address] [phone] Beef Lugger: Kevin Sanches MD [facility] [address] [place] [address] [phone] Beef Lugger: Satinder Richardson MD #### TOMAS AASMF #### [facility] [address] [place] [address] [phone] Beef Lugger: Satinder Richardson MD #### TRFE, ANASCN, FERI, PHEP, CER, LIVP, AMAB #### [address] [address] Beef Lugger: Cisco Andrade MD #### PT #### [address] [address] Beef Lugger: Kevin Sanches MD #### AEBVQ #### [address] [address] Beef Lugger: Cisco Andrade MD [facility] [address] [place] [address] Beef Lugger: Satinder Richardson MD ALT [Catalytic activity/Vol] 33 U/L Normal 5-33 [facility] Comment on above: Performed By: #### A CMVDN #### [address] [address] Beef Lugger: Kevin Sanches MD [facility] [address] [place] [address] Beef Lugger: Satinder Richardson MD #### AATRPH AASMF #### [facility] [address] [place] [address] Beef Lugger: Satinder Richardson MD #### TRFE, SGN, FERI, PHEP, CER, LIVP, AMAB #### [address] [address] Beef Lugger: Cisco Andrade MD #### PT #### [address] [address] Beef Lugger: Kevin Sanches MD #### AEBVQ #### [address] [address] Beef Lugger: Cisco Andrade MD [facility] [address] [place] [address] Beef Lugger: Satinder Richardson MD AST [Catalytic activity/Vol] 51 U/L High <32 [facility] Comment on above: Performed By: #### A CMVDN #### [address] [address] Beef Lugger: Kevin Sanches MD [facility] [address] [place] [address] [phone] Beef Lugger: Satinder Richardson MD #### GRAY MARINF #### [facility] [address] [place] [address] [phone] Beef Lugger: Satinder Richardson MD #### TRFE, ANASCN, FERI, PHEP, CER, LIVP, AMAB #### [address] [phone] Beef Lugger: Cisco Andrade MD #### PT #### [address] [address] Beef Lugger: Kevin Sanches MD #### AEBVQ #### [address] [phone] Beef Lugger: Cisco Andrade MD [address] [phone] Beef Lugger: Satinder Richardson MD Bilirubin [Mass/Vol] 0.69 mg/dL Normal 0.3-1.2 [facility] Comment on above: Performed By: #### A CMVDN #### [address] [address] Beef Lugger: Kevin Sanches MD [facility] [address] [place] [address] Beef Lugger: Satinder Richardson MD #### TOMAS AASMF #### [facility] [address] [place] [address] [phone] Beef Lugger: Satinder Richardson MD #### TRFE, SGN, FERI, PHEP, CER, LIVP, AMAB #### [address] [phone] Beef Lugger: Cisco Andrade MD #### PT #### [address] [phone] Beef Lugger: Kevin Sanches MD #### AEBVQ #### [address] [phone] Beef Lugger: Cisco Andrade MD [address] [phone] Beef Lugger: Satinder Richardson MD Bilirubin, Indirect 0.52 mg/dL Normal 0.00-1.00 [facility] Comment on above: Performed By: #### A CMVDN #### [address] [phone] Beef Lugger: Kevin Sanches MD [address] [phone] Beef Lugger: Satinder Richardson MD #### AATRPH AASMF #### [facility] [address] [place] [address] [phone] Beef Lugger: Satinder Richardson MD #### ELLYN, ROSALBA, FERI, PHEP, CER, LIVP, AMAB #### [address] [phone] Beef Lugger: Cisco Andrade MD #### PT #### [address] [phone] Beef Lugger: Kevin Sanches MD #### AEBVQ #### [address] [phone] Beef Lugger: Cisco Andrade MD [facility] [address] [place] [address] [phone] Beef Lugger: Satinder Richardson MD Bilirubin.indirect [Mass/Vol] 0.17 mg/dL Normal <0.31 [facility] Comment on above: Performed By: #### A CMVDN #### [address] [address] Beef Lugger: Kevin Sanches MD [facility] [address] [place] [address] [phone] Beef Lugger: Satinder Richardson MD #### AATRPH, AASMF #### [facility] [address] [place] [address] [phone] Beef Lugger: Satinder Richardson MD #### TRFE, ANASCN, FERI, PHEP, CER, LIVP, AMAB #### [address] [phone] Beef Lugger: Cisco Andrade MD #### PT #### [address] [address] Beef Lugger: Kevin Sanches MD #### AEBVQ #### [address] [phone] Beef Lugger: Cisco Andrade MD [address] [phone] Beef Lugger: Satinder Richardson MD Protein [Mass/Vol] 6.9 g/dL Normal 6.4-8.3 [facility] Comment on above: Performed By: #### A CMVDN #### [address] [phone] Beef Lugger: Kevin Sanches MD [facility] [address] [place] [address] [phone] Beef Lugger: Satinder Richardson MD #### GRAY MARINF #### [facility] [address] [place] [address] Beef Lugger: Satinder Richardson MD #### ELLYN, ROSALBA, FERI, PHEP, CER, LIVP, AMAB #### [address] [phone] Beef Lugger: Cisco Andrade MD #### PT #### [address] [phone] Beef Lugger: Kevin Sanches MD #### AEBVQ #### [address] [phone] Beef Lugger: Cisco Andrade MD [facility] [address] [place], [place] [phone] Beef Lugger: Satinder Richardson MD Transferrinon 09-08-2021 Transferrin [Mass/Vol] 248 mg/dL Normal 200-360 [facility] Comment on above: Performed By: #### A CMVDN #### [address] [phone] Beef Lugger: Kevin Sanches MD [facility] [address] [place], [place] [phone] Beef Lugger: Satinder Richardson MD #### GRAY MARINF #### [facility] [address] [place], [place] [phone] Beef Lugger: Satinder Richardson MD #### ELLYN, ROSALBA, OSBALDOI, PHEP, CER, LIVP, AMAB #### [address] [phone] Beef Lugger: Cisco Andrade MD #### PT #### [address] [phone] Beef Lugger: Kevin Sanches MD #### AEBVQ #### [facility] [address] [place] [address] [phone] Beef Lugger: Cisco Andrade MD [facility] [address] [place] [address] Beef Lugger: Satinder Richardson MD LIVERon 09-08-2021 US LIVER [...] Eli Pantoja MD 09/08/21 Final result Normal [facility] CMV Quant by PCRon 2 CMV Source .BLOOD Normal [facility] Comment on above: Performed By: #### A CMVDN #### [address] [address] Beef Lugger: Kevin Sanches MD [facility] [address] [place] [address] Beef Lugger: Satinder Richardson MD #### AATRPH, AASMF #### [facility] [address] [place] [address] Beef Lugger: Satinder Richardson MD #### TRSHEEBA, ROSALBA, FERI, PHEP, CER, LIVP, AMAB #### [address] [phone] Beef Lugger: Cisco Andrade MD #### PT #### [address] [phone] Beef Lugger: Kevin Sanches MD #### AEBVQ #### [address] [phone] Beef Lugger: Cisco Andrade MD [address] [phone] Beef Lugger: Satinder Richardson MD Hepatitis Acute [facility] 09-07 Hep A Ab,IgM Non-Reactive Normal NR [facility] Comment on above: Performed By: #### A CMVDN #### [address] [phone] Beef Lugger: Kevin Sanches MD [address] [phone] Beef Lugger: Satinder Richardson MD #### AATRPH AASMF #### [facility] [address] [place] [address] [phone] Beef Lugger: Satinder Richardson MD #### ELLYN, ROSALBA, FERI, PHEP, CER, LIVP, AMAB #### [address] [phone] Beef Lugger: Cisco Andrade MD #### PT #### [address] [phone] Beef Lugger: Kevin Sanches MD #### AEBVQ #### [address] [phone] Beef Lugger: Cisco Andrade MD [facility] [address] [place] [phone] Beef Lugger: Satinder Richardson MD Hep B Core Ab,IgM Non-Reactive Normal NR [facility] Comment on above: Performed By: #### A CMVDN #### [address] [phone] Beef Lugger: Kevin Sanches MD [facility] [address] [place], [place] [address] [id number] Beef Lugger: Satinder Richardson MD #### NELA MARIN #### [address] [phone] Beef Lugger: Satinder Richardson MD #### TRFE, ANASCN, FERI, PHEP, CER, LIVP, AMAB #### [address] [phone] Beef Lugger: Cisco Andrade MD #### PT #### [address] [phone] Beef Lugger: Kevin Sanches MD #### AEBVQ #### [address] [phone] Beef Lugger: Cisco Andrade MD [address] [id number] Beef Lugger: Satinder Richardson MD Hep B Surf Ag Non-Reactive Normal NR [facility] Comment on above: Performed By: #### A CMVDN #### [address] [phone] Beef Lugger: Kevin Sanches MD [facility] [address] [place] [phone] Beef Lugger: Satinder Richardson MD #### AATRPH, AASMF #### [facility] [address] [place] [phone] Beef Lugger: Satinder Richardson MD #### ELLYN, ROSALBA, FERI, PHEP, CER, LIVP, AMAB #### [address] [address] Beef Lugger: Cisco Andrade MD #### PT #### [address] [address] Beef Lugger: Kevin Sanches MD #### AEBVQ #### [address] [address] Beef Lugger: Cisco Andrade MD [address] [address] Beef Lugger: Satinder Richardson MD Hep C Ab Non-Reactive Normal NR [facility] Comment on above: Result Comment: The hepatitis [...] PCR. Performed By: #### A CMVDN #### [address] [address] Beef Lugger: Kevin Sanches MD [address] [address] Beef Lugger: Satinder Richardson MD #### NELA MARIN #### [facility] [address] [place] [phone] Beef Lugger: Satinder Richardson MD #### ELLYN, ROSALBA, FERI, PHEP, CER, LIVP, AMAB #### [address] [address] Beef Lugger: Cisco Andrade MD #### PT #### [address] [address] Beef Lugger: Kevin Sanches MD #### AEBVQ #### [id number] [place] [address] Beef Lugger: Cisco Andrade MD [facility] [address] [place] [phone] Beef Lugger: Satinder Richardson MD Hepatitis Panel, Acuteon HAV IgM IA Qn (S) Non-Reactive NONREACTIVE [facility] Hep B Core Ab, IgM Non-Reactive NONREACTIVE [facility] Hepatitis B Surface Ag Non-Reactive NONREACTIVE [facility] Hepatitis C Ab Non-Reactive NONREACTIVE [facility] Comment on above: The hepatitis C procedure [...] recommended by ordering HCV RNA by PCR. [facility] PTon 09-07-2021 INR Coag (PPP) [Relative time] 1.1 {INR} Normal [facility] Comment on above: Result Comment: Therapeutic Range: Moderate Anticoagulant Intensity: INR = 2.0-3.0 High Anticoagulant Intensity: INR = 2.5-3.5 Performed By: #### A CMVDN #### [address] [phone] Beef Lugger: Kevin Sanches MD [facility] [address] [place] [phone] Beef Lugger: Satinder Richardson MD #### AATNELA HORTON #### [facility] [address] [place] [address] Beef Lugger: Satinder Richardson MD #### TRFE, ANASCN, FERI, PHEP, CER, LIVP, AMAB #### [address] [address] Beef Lugger: Cisco Andrade MD #### PT #### [address] [address] Beef Lugger: Kevin Sanches MD #### AEBVQ #### [address] [address] Beef Lugger: Cisco Andrade MD [facility] [address] [place], [place] [phone] Beef Lugger: Satinder Richardson MD PT Coag (PPP) [Time] 10.9 s Normal 9.4-12.6 [facility] Comment on above: Performed By: #### A CMVDN #### [address] [address] Beef Lugger: Kevin Sanches MD [facility] [address] [place], [place] [phone] Beef Lugger: Satinder Richardson MD #### AATRPH AASMF #### [facility] [address] [place], [place] [phone] Beef Lugger: Satinder Richardson MD #### TRFE, ANASCN, FERI, PHEP, CER, LIVP, AMAB #### [address] [address] Beef Lugger: Cisco Andrade MD #### PT #### [address] [address] Beef Lugger: Kevin Sanches MD #### AEBVQ #### [address] [address] Beef Lugger: Cisco Andrade MD [facility] [address] [place] [address] Beef Lugger: Satinder Richardson MD [facility]INRon 09-07-2021 INR Coag (Bld) [Relative time] 1.1 {INR} [facility] [employer] Comment on above: Therapeutic Range: Moderate Anticoagulant Intensity: INR = 2.0-3.0 High Anticoagulant Intensity: INR = 2.5-3.5 PT Coag (PPP) [Time] 10.9 s [facility] Status4 [facility] CT KNEE RT WO CONon 07-16-19 CT [...] CHRISTIANSON Date: 2021-07-15 15:21 Normal [facility] Coding Summary.on 06-20-2017 Coding Summary. 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 However, the narrative phrase printed from the coding software may appear abbreviated, or result in slightly different terminology. Coded By: Rosa Mcginnis Date Saved: 06/20/2017 04:16 pm Normal [facility] Main OR Intraoperative Recor wilmer 06-16-2017 Main OR Intraoperative Record IntraOp Document Type FTURO Summary Primary Physician: Riccardo Melgar Jr., MD Finalized Date/Time: 06/16/17 15:09:35 Pt. Name: MADHAVI KAY/Sex: 1965 Female Med Rec #: [id number] Physician: Riccardo Melgar Jr., MD Financial #: [id number] Pt. Type: O Room/Bed: / Admit/Disch: 06/16/17 13:18:47 - Institution: Case Times FTURO Entry 1 Patient Times In Room 06/16/17 14:55:00 Out Room 06/16/17 15:12:00 Procedure Times Start 06/16/17 15:03:00 Stop 06/16/17 15:09:00 Anesthesia Times Last Modified By: Sana POZO, RN, Jonelle 06/16/17 15:09:24 Case Attendance FTURO Entry 1 Entry 2 Entry 3 Case Attendee Sana POZO, RN, Lida RAMOS, Shannon Melgar Jr., MD, Riccardo Sal Role Performed Senior Structural Engineer - Primary Scrub - Primary Surgeon - Primary Time In 06/16/17 14:55:00 06/16/17 14:55:00 06/16/17 14:55:00 Time Out 06/16/17 15:12:00 06/16/17 15:12:00 06/16/17 15:12:00 Procedure CYSTOSCOPY LOCAL BOTOX CYSTOSCOPY LOCAL BOTOX CYSTOSCOPY LOCAL BOTOX INJECTION(.) INJECTION(.) INJECTION(.) Comments Last Modified By: Sana POZO, RN, Sana POZO, RN, Sana POZO, RN, Jonelle 06/16/17 15:09:27 Jonelle 06/16/17 15:09:27 Jonelle 06/16/17 15:09:27 Surgical Procedures FTURO Entry 1 Procedure Description Procedure CYSTOSCOPY LOCAL BOTOX Modifiers . INJECTION Surgeon Description CYSTOSCOPY WITH BOTOX 100 UNITS lot number [id number] Primary Procedure Yes Primary Surgeon Ramón Buchanan [...] BLADDER Last Modified By: Sana POZO RN, Kelly 06/16/17 14:01:27 Post-Care Text: The patient is [...] RN, Verified (If Medication Participants Lida Sal [facility] Applicable) Ramón Cedeno Jr., MD, Riccardo Macias Time Out Complete 06/16/17 15:00:00 Allergies Reviewed? Yes Allergies Reviewed Self/Patient With Body Position Low Lithotomy Prep Area perinium Prep Agents Betadine Solution Skin. Condition Intact, Kramer, Warm, and Dry Additional None Specimens Collected [...] By: Sana POZO RN, Kelly 06/16/17 15:09 [facility] Main OR Preoperative Recordo n 06-16-2017 Main OR Preoperative Record Holding Area Document Type FTURO Summary Primary Physician: Riccardo Melgar Jr., MD Finalized Date/Time: 06/16/17 14:00:57 Pt. Name: ELIZAMADHAVI Beverly Gilmore/Sex: 1965 Female Med Rec #: [id number] Physician: Riccardo Melgar Jr., MD Financial #: [id number] Pt. Type: O Room/Bed: / Admit/Disch: 06/16/17 [...] Pain Comment: 07/07 stomach Skin Integrity Intact, Kramer, Warm, & Dry Vitals - EU Blood Pressure 141/97 Pulse 82 bpm Respirations 18 br/min SPO2 RN Reviewed Yes Last Modified By: Sana POZO RN, Kelly 06/16/17 14:00:49 Finalized By: Sana POZO RN, Kelly Document Signatures Signed By: Yvonne Coy LPN 06/16/17 13:50 Sana POZO RN, Kelly 06/16/17 14:00 [facility] Operative Reporton 8 Operative Report Patient: YONG KAY Age: 51 years Sex: Female : 1965 Associated Diagnoses: None Author: Riccardo Melgar Jr., MD Procedure Operative Information Details: Date/ Time: 06/16/17 15:11:00. 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 Post-Op Dx: Same. Anesthesia Type: Local. Procedure: Local Cystoscopy with botox injection. Complications: None. Risks/Benefits/Informe d Consent: Surgical risks, benefits, details of the [...] with antibiotic coverage, Follow up arranged. Normal [facility] Comment on above: Result Comment: Elec tronically Signed By: Ramón Buchanan MD, Riccardo Macias\.br\Date and Time Signed: 06/16/17 15:12 EDT Coding Summary.on 01-19-2017 Coding Summary. 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 However, the narrative phrase printed from the coding software may appear abbreviated, or result in slightly different terminology. Coded By: Caroline Ross Date Saved: 01/19/2017 11:28 am Normal [facility] Vital Signs Date Time Vital Sign Value Performing Clinician Haleigh will 11-27-2024 12:40-0400 Body height 165.[address] [facility] 11-27-2024 12:40-0400 Body mass index (BMI) [Ratio] 26.96 kg/m2 P[facility] 11-27-2024 12:40-0400 Body weight 73.[address] [facility] 10-30-2024 13:05-0400 Body height 165.[address] [facility] 10-30-2024 13:05-0400 Body mass index (BMI) [Ratio] 27.46 kg/m2 Pmh [facility] 10-30-2024 13:05-0400 Body weight 74.[address] [facility] 10-17-2024 14:20-0400 Body height 165.1 cm Yodit Cuba APRN-ACCOUNT MANAGER B2B Work Phone: [facility] 10-17-2024 14:20-0400 Body mass index (BMI) [Ratio] 27.52 kg/m2 Yodit Cuba VOCATIONAL NURSING INSTRUCTOR-ACCOUNT MANAGER B2B Work Phone: [facility] [employer] [facility] 10-17-2024 14:20-0400 Body weight 75.03 kg Yodit Cuba VOCATIONAL NURSING INSTRUCTOR-ACCOUNT MANAGER B2B Work Phone: [facility] 10-17-2024 14:20-0400 Diastolic blood pressure 64 mm[Hg] Yodit Cuba VOCATIONAL NURSING INSTRUCTOR-ACCOUNT MANAGER B2B Work Phone: [facility] 10-17-2024 14:20-0400 Heart rate 67 /min Yodit Cuba VOCATIONAL NURSING INSTRUCTOR-ACCOUNT MANAGER B2B Work Phone: [facility] 10-17-2024 14:20-0400 Systolic blood pressure 115 mm[Hg] Yodit Cuba VOCATIONAL NURSING INSTRUCTOR-ACCOUNT MANAGER B2B Work Phone: [facility] 10-01-2024 08:25-0400 Body height 165.1 cm Ashleyuday Frnacisco VOCATIONAL NURSING INSTRUCTOR-ACCOUNT MANAGER B2B Work Phone: [facility] 10-01-2024 08:25-0400 Body mass index (BMI) [Ratio] 27.76 kg/m2 Ashley Tyron VOCATIONAL NURSING INSTRUCTOR-ACCOUNT MANAGER B2B Work Phone: [facility] 10-01-2024 08:25-0400 Body temperature 97.39 [degF] Ashley Tyron VOCATIONAL NURSING INSTRUCTOR-ACCOUNT MANAGER B2B Work Phone: [facility] 10-01-2024 08:25-0400 Body weight 75.66 kg Ashley Tyron VOCATIONAL NURSING INSTRUCTOR-ACCOUNT MANAGER B2B Work Phone: [facility] 10-01-2024 08:25-0400 Diastolic blood pressure 79 mm[Hg] Ashley Tyron VOCATIONAL NURSING INSTRUCTOR-ACCOUNT MANAGER B2B Work Phone: [facility] 10-01-2024 08:25-0400 Heart rate 64 /min Ashley Tyron VOCATIONAL NURSING INSTRUCTOR-ACCOUNT MANAGER B2B Work Phone: [facility] 10-01-2024 08:25-0400 Respiratory rate 15 /min Ashley Tyron VOCATIONAL NURSING INSTRUCTOR-ACCOUNT MANAGER B2B Work Phone: [facility] 10-01-2024 08:25-0400 SaO2% (BldA) [Mass fraction] 100 % Ashley Tyron VOCATIONAL NURSING INSTRUCTOR-ACCOUNT MANAGER B2B Work Phone: [facility] 10-01-2024 08:25-0400 Systolic blood pressure 129 mm[Hg] Ashley Tyron VOCATIONAL NURSING INSTRUCTOR-ACCOUNT MANAGER B2B Work Phone: [facility] 06-18-2024 10:03-0400 Body height 165.1 cm Gaviota Hayes MD Work Phone: [facility] 06-18-2024 10:03-0400 Body mass index (BMI) [Ratio] 27.56 kg/m2 Gaviota Hayes MD Work Phone: [facility] 06-18-2024 10:03-0400 Body weight 75.12 kg Gaviota Hayes MD Work Phone: [facility] 06-18-2024 10:03-0400 Diastolic blood pressure 82 mm[Hg] Gaviota Hayes MD Work Phone: [facility] 06-18-2024 10:03-0400 Heart rate 73 /min Gaviota Hayes MD Work Phone: [facility] 06-18-2024 10:03-0400 SaO2% (BldA) [Mass fraction] 99 % Gaviota Hayes MD Work Phone: [facility] 06-18-2024 10:03-0400 Systolic blood pressure 118 mm[Hg] Gaviota Hayes MD Work Phone: [facility] 05-10-2024 14:27-0400 Diastolic blood pressure 69 mm[Hg] Lucia Olmos VOCATIONAL NURSING INSTRUCTOR Work Phone: [facility] 05-10-2024 14:27-0400 Heart rate 60 /min Lucia Olmos VOCATIONAL NURSING INSTRUCTOR Work Phone: [facility] 05-10-2024 14:27-0400 Respiratory rate 16 /min Lucia Olmos VOCATIONAL NURSING INSTRUCTOR Work Phone: [facility] 05-10-2024 14:27-0400 SaO2% (BldA) [Mass fraction] 98 % Lucia Olmos VOCATIONAL NURSING INSTRUCTOR Work Phone: [facility] 05-10-2024 14:27-0400 Systolic blood pressure 111 mm[Hg] Lucia Olmos VOCATIONAL NURSING INSTRUCTOR Work Phone: [facility] 05-10-2024 11:44-0400 Body height 165.1 cm Lucia Olmos VOCATIONAL NURSING INSTRUCTOR Work Phone: [facility] 05-10-2024 11:44-0400 Body weight 75.29 kg Lucia Olmos VOCATIONAL NURSING INSTRUCTOR Work Phone: [facility] 04-23-2024 10:24-0500 Body height 165.1 cm [facility] 04-23-2024 10:24-0500 Body mass index (BMI) [Ratio] 27.6 kg/m2 [facility] 04-23-2024 10:24-0500 Body weight 75.29 kg [facility] 03-27-2024 09:14-0500 Body height 165.1 cm Alonzo Torrez MD Work Phone: [facility] 03-27-2024 09:14-0500 Body mass index (BMI) [Ratio] 28.12 kg/m2 Alonzo Torrez MD Work Phone: [facility] 03-27-2024 09:14-0500 Body weight 76.66 kg Alonzo Torrez MD Work Phone: [facility] 12-16-2023 12:58-0400 Body height 165.1 cm Som Valenzuela MD Work Phone: [facility] [employer] [facility] 12-16-2023 12:58-0400 Body mass index (BMI) [Ratio] 27.46 kg/m2 [facility] [employer] 12-16-2023 12:58-0400 Body weight 74.84 kg Som [facility]enzuela [facility] [employer] 12-16-2023 12:58-0400 Diastolic blood pressure 80 mm[Hg] Som Valenzuela MD Work Phone: [facility] [employer] [facility] 12-16-2023 12:58-0400 Heart rate 62 /min Som Valenzuela MD Work Phone: [facility] [employer] [facility] 12-16-2023 12:58-0400 SaO2% (BldA) [Mass fraction] 98 % Smo Valenzuela MD Work Phone: [facility] [employer] [facility] 12-16-2023 12:58-0400 Systolic blood pressure 132 mm[Hg] Som Valenzuela MD Work Phone: [facility] [employer] [facility] 09-23-2023 08:48-0400 Body height 165.1 cm Divya Galloway MD Work Phone: [facility] [employer] [facility] 09-23-2023 08:48-0400 Body mass index (BMI) [Ratio] 27.96 kg/m2 Divya Galloway MD Work Phone: [facility] [employer] [facility] 09-23-2023 08:48-0400 Body temperature 98.01 [degF] Divya Galloway MD Work Phone: [facility] [employer] [facility] 09-23-2023 08:48-0400 Body weight 76.2 kg Divya Galloway MD Work Phone: [facility] [employer] [facility] 09-23-2023 08:48-0400 Diastolic blood pressure 93 mm[Hg] Divya Galloway MD Work Phone: [facility] [employer] [facility] 09-23-2023 08:48-0400 Heart rate 82 /min Divya Galloway MD Work Phone: [facility] [employer] [facility] 09-23-2023 08:48-0400 Respiratory rate 18 /min Divya Galloway MD Work Phone: [facility] 09-23-2023 08:48-0400 SaO2% (BldA) [Mass fraction] 99 % Divya Galloway MD Work Phone: [facility] [employer] [facility] 09-23-2023 08:48-0400 Systolic blood pressure 117 mm[Hg] Divya Galloway MD Work Phone: [facility] [employer] [facility] 03-25-2023 09:12-0500 Body height 165.1 cm Divya Galloway MD Work Phone: [facility] [employer] [facility] 03-25-2023 09:12-0500 Body mass index (BMI) [Ratio] 29.79 kg/m2 Divya Galloway MD Work Phone: [facility] [employer] [facility] 03-25-2023 09:12-0500 Body temperature 97.81 [degF] Divya Galloway MD Work Phone: [facility] [employer] 03-25-2023 09:12-0500 Body weight 81.19 kg Divya Galloway MD Work Phone: [facility] [employer] [facility] 03-25-2023 09:12-0500 Diastolic blood pressure 93 mm[Hg] Divya Galloway MD Work Phone: [facility] [employer] [facility] 03-25-2023 09:12-0500 Heart rate 57 /min Divya Galloway MD Work Phone: [facility] [employer] 03-25-2023 09:12-0500 Respiratory rate 18 /min Divya Galloway MD Work Phone: [facility] [employer] [facility] 03-25-2023 09:12-0500 SaO2% (BldA) [Mass fraction] 99 % Divya Galloway MD Work Phone: [facility] [employer] [facility] 03-25-2023 09:12-0500 Systolic blood pressure 142 mm[Hg] Divya Galloway MD Work Phone: [facility] Encounters Encounter Date Encounter Type Care Provider Facility Start: 12-11-2024 End: 12-11-2024 Follow-up encounter Jerardo Romo DO Work Phone: [facility] - Surgery Comment on above: Surgical Pathology Start: 12-09-2024 End: 12-09-2024 Refill Jerardo Romo DO Work Phone: [facility] General Surgery Start: 12-06-2024 End: 12-06-2024 Telephone encounter Marlee Voss [facility] Physician s Cardiology Start: 12-05-2024 End: 12-05-2024 Emergency department patient visit [facility] Start: 12-03-2024 End: 12-03-2024 Evaluation and management of inpatient JERARDO ROMO [facility] Start: 11-27-2024 End: 11-27-2024 ambulatory P[facility] Pat Phone Call Provider 1 [facility] - Pre Admit Start: 11-27-2024 End: 11-27-2024 Telephone encounter Tish De La Fuente [facility] Comment on above: Re-establish Care Start: 11-27-2024 End: 11-27-2024 ambulatory [facility] Start: 11-22-2024 ambulatory Joseph Jennifer Facility:[facility] Start: 11-09-2024 End: 11-12-2024 Follow-up encounter Jerardo Romo DO Work Phone: [facility] - Surgery Comment on above: Surgical Pathology, Bedside Glucose *Place/Obtain serum glucose if >500 per glucometer. Start: 11-05-2024 End: 11-05-2024 Follow-up encounter Shelley Martel [facility] General Surgery Comment on above: CT abdomen and pelvi s with contrast Start: 11-05-2024 End: 11-05-2024 Evaluation and management of inpatient JERARDO ROMO [facility] Start: 10-30-2024 End: 10-30-2024 ambulatory Pmh Pat Phone Call Provider 1 [facility] - Pre Admit Start: 10-17-2024 End: 10-17-2024 Office outpatient new 30 minutes Yodit Cuba VOCATIONAL NURSING INSTRUCTOR-ACCOUNT MANAGER B2B Work Phone: [facility] Comment on above: Vomiting, unspecifie d vomiting type, unspecified whether nausea present (Primary Dx); Periumbilical abdominal pain; Diarrhea, unspecified type; Black stools; RLQ abdominal pain Start: 10-17-2024 End: 10-17-2024 ambulatory [facility] Start: 10-15-2024 End: 10-15-2024 Telephone encounter Yodit Cuba VOCATIONAL NURSING INSTRUCTOR-ACCOUNT MANAGER B2B Work Phone: [facility] General Surgery Start: 10-01-2024 End: 10-01-2024 Office outpatient visit 25 minutes Ashleymeghan Aguilarall VOCATIONAL NURSING INSTRUCTOR-ACCOUNT MANAGER B2B Work Phone: [facility] Comment on above: Endometrial cancer d etermined by uterine biopsy ([facility]) (Primary Dx); Thrombocytopenia; Other cirrhosis of liver ([facility]); Endometrial carcinoma ([facility]); Hepatosplenomegaly Start: 10-01-2024 End: 10-01-2024 ambulatory [facility] Start: 09-25-2024 ambulatory DIVYA GALLOWAY [facility] Start: 09-24-2024 End: 09-24-2024 Orders Only Sonia [facility] - Medical Oncology Comment on above: Thrombocytopenia (Pr imary Dx) Start: 07-02-2024 [facility] Start: 06-18-2024 End: 06-18-2024 Office outpatient visit 25 minutes Gaviota Hayes MD Work Phone: [facility] Cardiology Comment on above: Essential hypertensi on, benign (Primary Dx); FOREIGN on CPAP Start: 06-18-2024 End: 06-18-2024 ambulatory GAVIOTA HAYES [facility] Start: 06-15-2024 End: 06-15-2024 [facility] Start: 06-13-2024 End: 06-13-2024 Telephone encounter Francine Rai [facility] Start: 06-08-2024 End: 06-08-2024 Emergency department patient visit [facility] Start: 05-10-2024 Non-patient / Non-visit Roly pinto Nickolas VOCATIONAL NURSING INSTRUCTOR Work Phone: [facility] Phys[facility] Work Phone: Start: 05-10-2024 End: 05-10-2024 Admission to same day surgery center Lucia Nickolas VOCATIONAL NURSING INSTRUCTOR Work Phone: [facility] Work Phone: Start: 05-10-2024 End: 05-10-2024 ambulatory Lucia De Luna Nickolas VOCATIONAL NURSING INSTRUCTOR Work Phone: [facility] Work Phone: Start: 04-23-2024 End: 04-23-2024 ambulatory [facility] Work Phone: Start: 04-23-2024 End: 04-23-2024 Patient encounter procedure [facility] Work Phone: Start: 03-27-2024 End: 03-27-2024 Office outpatient visit 15 minutes Alonzo Torrez MD Work Phone: [facility] Comment on above: Periumbilical abdomi nal pain (Primary Dx) Start: 03-27-2024 End: 03-27-2024 ambulatory ALONZO TORREZ [facility] Amb[facility] Start: 03-16-2024 Non-patient / Non-visit [facility] Work Phone: Start: 03-08-2024 End: 03-09-2024 ambulatory YONY BEE [facility] Start: 02-14-2024 End: 02-14-2024 ambulatory SOM Cedeno [facility] Start: 02-07-2024 End: 02-07-2024 Orders Only Lesley Gaffney [facility] Comment on above: Abnormal stress test (Primary Dx); Chest pain, unspecified type Start: 12-22-2023 End: 12-22-2023 ambulatory [facility] Start: 12-16-2023 End: 12-16-2023 Telephone encounter Elvia Pappas [facility] Comment on above: CTA cors Start: 12-16-2023 End: 12-16-2023 Office outpatient visit 25 minutes Vincenzo Luna MD Work Phone: [facility] Comment on above: Chest pain, unspecif ied type (Primary Dx); Abnormal stress test; Essential hypertension, benign; Shortness of breath Start: 12-16-2023 End: 12-16-2023 ambulatory [facility] Start: 12-15-2023 End: 12-15-2023 Telephone encounter Marlee Voss [facility] Start: 10-05-2023 End: 10-05-2023 Telephone [facility] Start: 09-23-2023 End: 09-23-2023 [facility] Comment on above: Endometrial cancer d etermined by uterine biopsy ([facility]) (Primary Dx); Other cirrhosis of liver ([facility]); Thrombocytopenia ([facility]); Endometrial carcinoma ([facility]); Hepatosplenomegaly Start: 09-23-2023 End: 09-23-2023 Office outpatient visit 25 minutes Divya Galloway MD Work Phone: Mckenzie Hankins [facility] - Medical Oncology Comment on above: Endometrial cancer d etermined by uterine biopsy ([facility]) (Primary Dx); Thrombocytopenia ([facility]) Start: 09-12-2023 End: 09-14-2023 Telephone encounter Oxana Stafford [facility] Start: 08-18-2023 End: 08-19-2023 Telephone encounter Madhavi Cruz [facility] Start: 08-01-2023 End: 08-01-2023 Telephone encounter Tish De La Fuente CMA [facility] Comment on above: Multiple Needs Start: 07-05-2023 End: 07-05-2023 ambulatory DONNA MONTANO Not Available Start: 06-20-2023 End: 06-20-2023 ambulatory SHAINA JANE [facility] Start: 04-14-2023 Telephone encounter Marlee Voss CMA [facility] Start: 03-25-2023 Orders Only Donna Macias Harrison [facility] - Medical Oncology Comment on above: Endometrial cancer d etermined by uterine biopsy ([facility]) (Primary Dx); Other cirrhosis of liver ([facility]); Thrombocytopenia ([facility]) Start: 03-25-2023 End: 03-25-2023 Office outpatient visit 25 minutes Divya Galloway MD Work Phone: Mckenzie Hankins [facility] - Medical Oncology Comment on above: Thrombocytopenia ([facility]) (Primary Dx); Endometrial cancer determined by uterine biopsy ([facility]); Other cirrhosis of liver ([facility]) Start: 03-17-2023 Telephone encounter Francine Wilde [facility] Start: 02-15-2022 End: 02-15-2022 ambulatory BLANCA GRANT [facility] Start: 10-30-2021 End: 10-30-2021 ambulatory MICHELLE REBOLALR Facility:[facility] Start: 10-15-2021 End: 10-15-2021 ambulatory MICHELLE REBOLLAR Facility:[facility] Start: 09-07-2021 End: 09-08-[address] [facility] Start: 09-07-2021 End: 09-10-[address] [facility] Start: 09-07-2021 End: 09-07-2021 Subsequent hospital visit by physician Michelle Rebollar Work Phone: [facility] Comment on above: Hepatomegaly; Splenomegaly; Thrombocytopenia (HCC) Start: 07-15-2021 End: 07-15-[address] GENNA SUTHERLAND Facility:[facility] Start: 03-04-2021 End: 03-04-[address] DOCTOR OROZCO Facility:[facility] Start: 06-16-2017 End: 06-17-2017 Ambulatory Vincenzo Townsend Facility:[facility] Start: 01-13-2017 End: 01-14-2017 Ambulatory Vincenzo W Rice Facility:[facility] Procedures Date Procedure Procedure Detail Performing Clinician Start: 05-10-2024 Esophagogastroduodenoscopy Lucia Olmos APRN Work Phone: Start: 12-16-2023 Follow-up visit Follow-up SOM VALENZUELA Start: 03-23-2023 Microalbumin [Mass/volume] in Urine by Test strip Alonzo Torrez MD Work Phone: Start: 03-07-2022 Adult depression screening assessment Francine Rai Start: 09-07-2021 Acute hepatitis panel Emery Horowitz APRN - [employer] Work Phone: Start: 09-07-2021 Prothrombin time Emery Horowitz APRN - [employer] Work Phone: H/O: tubal ligation Hx of tubal ligation History of cholecystectomy Hx of cholecys tectomy Plan of Treatment Date Care Activity Detail Author Start: 12-05-2025 Adult BMI Screening Adult BMI Scre[facility] Start: 12-05-2025 Tobacco Screening Tobacco Screening [facility] Start: 11-27-2025 Adult BMI Screening Adult BMI Screening [facility] Start: 11-27-2025 Tobacco Screening [facility] Start: 11-05-2025 Tobacco Screening [facility] Start: 10-30-2025 Adult BMI Screening [facility] Start: 10-30-2025 Tobacco Screening [facility] Start: 10-18-2025 Tobacco Screening [facility] Start: 10-17-2025 Adult BMI Screening [facility] Start: 10-01-2025 Adult BMI Screening [facility] Start: 10-01-2025 Tobacco Screening [facility] Start: 06-18-2025 Adult BMI Screening [facility] Start: 06-18-2025 Tobacco Screening [facility]ening [facility] Start: 06-08-2025 Adult BMI Screening [facility] Start: 06-08-2025 Tobacco Screening [facility]ening [facility] Start: 03-09-2025 Adult BMI Screening [facility] Start: 03-08-2025 Tobacco Screening Tobacco Screening [facility] Start: 12-15-2024 Adult BMI Screening Adult BMI Screening [facility] Start: 12-15-2024 Tobacco Screening Tobacco Screening [facility] Start: 12-10-2024 End: 12-10-2024 Admission to same day surgery center 12/10/2024 8:30 AM EDT - 12/10/2024 9:00 AM EDT Surgery [facility] [address] [place] [address] Jerardo Romo, DO [address] [place], [place] [id number] COLONOSCOPY DIAGNOSTIC / SCREENING [30719 (CPT )] [facility] Comment on above: COLONOSCOPY DIAGNOSTIC / SCREENING [4537 8 (CPT )] Start: 12-10-2024 End: 12-10-2024 Colonoscopy flx dx w/collj spec when pfrmd COLONOSCOPY DIAGNOSTIC / SCREENING black stools, diarrhea, periumbilical pain, incomplete prep on first attempt 12/10/2024 8:30 AM EDT [facility] Start: 12-10-2024 Subsequent hospital visit by physician 12/10/2024 8:30 AM EDT Hospital Encounter [facility] - Surgery [address] [place] [address] Jerardo Romo, DO [address] [place], [place] [id number] [facility] Start: 12-04-2024 End: 12-04-2024 ambulatory 12/04/2024 3:40 PM EDT Support Visit [facility] [address] [place] [address] [facility] Pre Admit Start: 12-03-2024 End: 12-03-2024 Admission to same day surgery center [facility] Comment on above: COLONOSCOPY DIAGNOSTIC / SCREENING [4537 8 (CPT )] Start: 12-03-2024 End: 12-03-2024 Anesthesia consultation [facility] Start: 12-03-2024 End: 12-03-2024 Colonoscopy [facility]x dx w[facility]j [facility] Start: 12-03-2024 Subsequent hospital visit by physician [facility] Start: 11-30-2024 Adult BMI Screening Adult BMI Screening [facility] Start: 11-30-2024 Tobacco Screening Tobacco Screening [facility] Start: 11-05-2024 End: 11-05-2024 Admission to same day surgery center 11/05/2024 9:30 AM EDT - 11/05/2024 10:15 AM EDT Surgery [facility] [address] [place] [address] Jerardo Romo, DO [address] [place] [address] ESOPHAGOGASTRODUODENOSCOPY DIAGNOSTIC [63433 (CPT )] [facility] Comment on above: ESOPHAGOGASTRODUODENOSCOPY DIAGNOSTIC [4 3235 (CPT )] Start: 11-05-2024 Subsequent hospital visit by physician 11/05/2024 9:30 AM EDT Hospital Encounter [facility] [address] [place] [address] Jerardo Romo, DO [address] [place] [address] [facility] Start: 11-05-2024 End: 11-05-2024 Colonoscopy flx dx w/collj spec when [facility] Start: 11-05-2024 End: 11-05-2024 Esophagogastroduodenoscopy transoral diagnostic [facility] Start: 10-30-2024 End: 10-30-2024 ambulatory 10/30/2024 3:00 PM EDT Support Visit [facility] - Pre Admit [address] [facility] [place] [address] [facility] - Pre Admit Start: 10-30-2024 End: 10-30-2024 Patient encounter procedure 10/30/2024 8:00 AM EDT Appointment [facility] - CT Imaging [address] [place] [phone] Yodit Cuba, VOCATIONAL NURSING INSTRUCTOR-ACCOUNT MANAGER [employer] [address] [place] [address] [facility] - CT Imaging Start: 10-29-2024 Influenza vaccination Influenza Vaccine [facility] Start: 10-17-2024 End: 10-17-2024 Patient encounter procedure 10/17/2024 2:30 PM EDT Off ice Visit [facility] General Surgery [address] [place] [address] Yodit Cuba VOCATIONAL NURSING INSTRUCTOR-ACCOUNT MANAGER [employer] [address] [place] [address] [facility] General Surgery Start: 10-17-2024 End: 10-17-2025 CT Abdomen and Pelvis W contrast IV CT abdomen and pelvis with contrast Imaging Routine RLQ abdominal pain Expected: 10/17/2024, Expires: 10/17/2025 [facility] Work Phone: Comment on above: Expected: 10/17/2024, Expires: Start: 10-01-2024 End: 10-01-2024 Patient encounter procedure 10/01/2024 8:30 AM EDT Off ice Visit Mckenzie Hankins [facility] - Medical Oncology [address] [place] [address] Ashley Francisco VOCATIONAL NURSING INSTRUCTOR-ACCOUNT MANAGER [employer] [address] [place] [address], [address] [address] Mckenzie Hankins [facility] - Medical Oncology Start: 09-22-2024 Adult BMI Screening Adult BMI Screening [facility] Start: 09-22-2024 Tobacco Screening Tobacco Screening [facility] Start: 09-21-2024 End: 09-21-2024 Patient encounter procedure 09/21/2024 8:45 AM EDT Off ice Visit Mckenzie Hankins [facility] - Medical Oncology [address] [place] [phone] Divya Galloway MD [address] [facility] [address] [place] [address] Mckenzie Hankins [facility] - Medical Oncology Start: 09-06-2024 Adult BMI Screening Adult BMI Screening [facility] Start: 09-06-2024 Tobacco Screening Tobacco Screening [facility] Start: 07-12-2024 Adult BMI Screening Adult BMI Screening [facility] Start: 07-12-2024 Tobacco Screening Tobacco Screening [facility] Start: 06-18-2024 End: 06-18-2024 Patient encounter procedure 06/18/2024 10:00 AM EDT Office Visit [facility] [address] [address] Gaviota Hayes MD [address] [place] [phone] [facility] Start: 05-10-2024 [facility] Start: 03-25-2024 Adult BMI Screening Adult BMI Screening [facility] Start: 03-23-2024 Urine screening for protein Urine Microalbumin [facility] Start: 02-14-2024 End: 02-14-2024 Patient encounter procedure 02/14/2024 1:30 PM EST Appointment [facility] - CT [address] [place] [address] [facility] Start: 12-22-2023 End: 12-22-2023 Patient encounter procedure 12/22/2023 11:00 AM EDT Appointment [facility] - CT Imaging [address] [place] [phone] Divya Galloway MD [address] [place] [address] [facility] - CT Imaging Start: 12-17-2023 Adult BMI Screening Adult BMI Screening [facility] Start: 12-17-2023 Tobacco Screening Tobacco Screening [facility] Start: 12-16-2023 End: 12-15-2024 CTA Heart and Coronary arteries WO and W contrast IV CT angiogram coronary arteries with or without scoring Imaging Routine Chest pain, unspecified type Abnormal stress test Shortness of breath Expected: 12/16/2023, Expires: 12/15/2024 [facility] Work Phone: Comment on above: Expected: 12/16/2023, Expires: Start: 12-16-2023 End: 12-16-2023 Patient encounter procedure 12/16/2023 1:15 PM EDT Off ice Visit [facility] [address] [place] [address] Vincenzo Luna MD [address] [place] [address] Som Valenzuela MD [address] [place] [address] [facility] Start: 10-30-2023 Influenza vaccination Influenza Vaccine [facility] Start: 10-06-2023 End: 10-06-2023 Patient encounter procedure 10/06/2023 11:30 AM EDT Office Visit [facility] [address] [place] [phone] Vincenzo Luna MD [address] [place] [address] [facility] Start: 09-23-2023 End: 03-25-2024 CBC W Auto Differential panel - Blood CBC auto differential Lab Routine Endometrial cancer determined by uterine biopsy (CMS-HCC) Other cirrhosis of liver (CMS-HCC) Thrombocytopenia (CMS-HCC) Expected: 09/23/2023 (Approximate), Expires: 03/25/2024 [facility] [employer] Comment on above: Expected: 09/23/2023 (Approximate), Expi res: 03/25/2024 Start: 09-23-2023 End: 03-25-2024 Comprehensive metabolic 2000 panel - Serum or Plasma Comprehensive metabolic panel Lab Routine Endometrial cancer determined by uterine biopsy (CMS-HCC) Other cirrhosis of liver (CMS-HCC) Thrombocytopenia (CMS-HCC) Expected: 09/23/2023 (Approximate), Expires: 03/25/2024 [facility] [employer] Comment on above: Expected: 09/23/2023 (Approximate), Expi res: 03/25/2024 Start: 09-23-2023 End: 09-22-2024 CT Abdomen and Pelvis W contrast IV CT abdomen and pelvis with contrast Imaging Routine Endometrial cancer determined by uterine biopsy (CMS-HCC) Other cirrhosis of liver (CMS-HCC) Thrombocytopenia (CMS-HCC) Endometrial carcinoma (CMS-HCC) Hepatosplenomegaly Expected: 09/23/2023, Expires: 09/22/2024 [facility] [employer] Comment on above: Expected: 09/23/2023, Expires: Start: 09-23-2023 End: 09-22-2024 CT Chest limited W contrast IV CT chest with contrast Imaging Routine Endometrial cancer determined by uterine biopsy (CMS-HCC) Other cirrhosis of liver (CMS-HCC) Thrombocytopenia (CMS-HCC) Endometrial carcinoma (CMS-HCC) Hepatosplenomegaly Expected: 09/23/2023, Expires: 09/22/2024 [employer] Work Phone: Comment on above: Expected: 09/23/2023, Expires: Start: 09-23-2023 End: 09-23-2023 Patient encounter procedure 09/23/2023 9:00 AM EDT [facility] [address] [place] [phone] Divya Galloway MD [address] [facility] [address] [address] [place] [id number] [facility]ck[facility] - Medical Oncology Start: 09-20-2023 End: 09-20-2023 Patient encounter procedure [facility] - Stress Imaging Start: 09-07-2023 End: 09-07-2023 Patient encounter procedure 09/07/2023 10:30 AM EDT Appointment [facility] - Cardiovascular [address] [place] [address] Gonsalo Pettit MD [address] [place], [place] [phone] [facility] - Cardiovascular Start: 09-07-2023 End: 09-07-2023 Patient encounter procedure 09/07/2023 9:15 AM EDT Appointment [facility] - Cardiovascular [address] [place] [address] [facility] - Cardiovascular Start: 08-19-2023 End: 08-18-2024 Exercise stress test study Stress test (exercise only) Cardiac Services Routine Chest pain, unspecified type Expected: 08/19/2023, Expires: 08/18/2024 [facility] Work Phone: Comment on above: Expected: 08/19/2023, Expires: Start: 04-15-2023 End: 04-15-2023 Patient encounter procedure 04/15/2023 1:00 PM EST Off ice Visit [facility] [address] [address] Garry [place] MD [address] [place], [place] [phone] Natalio Uriostegui MD [address] [facility] [place] [address] [facility] Start: 04-12-2023 End: 04-12-2023 Patient encounter procedure 04/12/2023 10:30 AM EST Office Visit Mckenzie Hankins [facility] - Medical Oncology [address] [place] [address] Shaina Jane PA [address] [place] [address] Mckenzie Hankins [facility] - Medical Oncology Start: 04-07-2023 Adult BMI Follow Up Plan Adult BMI Follow Up Plan [facility] Start: 03-25-2023 End: 03-25-2024 US Abdomen limited Ultrasound abdomen limited Imaging Routine Other cirrhosis of liver ([facility]) Expected: 03/25/2023, Expires: 03/25/2024 [facility] Work Phone: Comment on above: Expected: 03/25/2023, Expires: Start: 03-25-2023 End: 03-25-2023 Patient encounter procedure [facility] Start: 03-07-2023 Depression Screening Depression Screening [facility] Start: 10-29-2022 Influenza vaccination Influenza Vaccine [facility] Start: 10-29-2021 Influenza vaccination Flu vaccine (#1) [employer] Start: 11-21-2020 COVID-19 Vaccine (3 - Moderna risk series) COVID-19 Vaccine (3 - Moderna risk series) [facility] [employer] [facility] Start: 12-20-2015 Screening for malignant neoplasm of breast Breast cancer screen [employer] Start: 12-20-2015 Shingles vaccine (1 of 2) Shingles vaccine (1 of 2) [facility] [employer] Start: 2010 Screening for malignant neoplasm of colon [employer] Start: 2005 Lipid panel Lipids [employer] Start: 2000 Diabetes screen Diabetes screen [employer] [facility] [employer] Start: 12-20-1995 Screening for malignant neoplasm of cervix [facility] Start: 1986 Screening for malignant neoplasm of cervix Pap smear [facility] Start: 1984 Administration of varicella zoster vaccine Zoster (Shingles) Vaccine (1 of 2) [facility] Start: 1984 DTaP,Tdap and Td Vaccines (1 - Tdap) DTaP,Tdap and Td Vaccines (1 - Tdap) [facility] Start: 1984 DTaP/Tdap/Td vaccine (1 - Tdap) DTaP/Tdap/Td vaccine (1 - Tdap) [facility] Start: 12-20-1983 Adult BMI Follow Up Plan Adult BMI Follow Up Plan [facility] Start: 12-20-1983 Diabetic foot examination Diabetic Foot Exam [facility] Start: 1980 HIV screening HIV screen [facility] Start: 1977 Depression Screen Depression Screen [facility] Start: 1970 COVID-19 Vaccine (1) COVID-19 Vaccine (1) [facility] Start: 1965 Glaucoma screening Diabetic Ophthalmology Exam [facility] End: 09-07-2021 [id number] w Phenotype [facility] Work Phone: Comment on above: 1 Occurrences starting 09/07/2021 until 09/07/2021 End: 09-22-2024 CBC W Auto Differential panel - Blood CBC with auto diff Lab Routine Endometrial cancer determined by uterine biopsy ([facility]) Other cirrhosis of liver (CMS-HCC) Thrombocytopenia ([facility]) Endometrial carcinoma ([facility]) Hepatosplenomegaly 1 Occurrences starting 09/23/2023 until 09/22/2024 [facility] Comment on above: 1 Occurrences starting 09/23/2023 until 09/22/2024 End: 09-24-2025 CBC W Auto Differential panel - Blood CBC with auto diff Lab Routine Thrombocytopenia 1 Occurrences starting 09/24/2024 until 09/24/2025 [facility] Work Phone: Comment on above: 1 Occurrences starting 09/24/2024 until 09/24/2025 End: 10-01-2033 CBC W Auto Differential panel - Blood CBC auto differential Lab Routine Thrombocytopenia PRN for 5 Occurrences starting 10/01/2024 until 10/01/2033 [employer] Phone: Comment on above: PRN for 5 Occurrences starting until 10/01/2033 End: 09-07-2021 [employer] Phone: Comment on above: 1 Occurrences starting 09/07/2021 until 09/07/2021 End: 09-07-2021 CMV by PCR [employer] Phone: Comment on above: Once for 1 Occurrences starting 09/08/19 until 09/07/2021 End: 09-07-2021 CMV DNA, quantitative, PCR CMV DNA, quantitative, PCR Lab Routine Hepatomegaly Splenomegaly 1 Occurrences starting 09/07/2021 until 09/07/2021 [employer] Phone: Comment on above: 1 Occurrences starting 09/07/2021 until 09/07/2021 End: 09-22-2024 Comprehensive metabolic 2000 panel - Serum or Plasma Comprehensive metabolic panel Lab Routine Endometrial cancer determined by uterine biopsy (CMS-HCC) Other cirrhosis of liver (CMS-HCC) Thrombocytopenia (CMS-HCC) Endometrial carcinoma (CMS-HCC) Hepatosplenomegaly 1 Occurrences starting 09/23/2023 until 09/22/2024 [employer] Comment on above: 1 Occurrences starting 09/23/2023 until 09/22/2024 End: 09-22-2024 Creatinine includes GFR, serum Creatinine includes GFR, serum Lab Routine Endometrial cancer determined by uterine biopsy (CMS-HCC) Other cirrhosis of liver (CMS-HCC) Thrombocytopenia (CMS-HCC) Endometrial carcinoma (CMS-HCC) Hepatosplenomegaly 1 Occurrences starting 09/23/2023 until 09/22/2024 [employer] Comment on above: 1 Occurrences starting 09/23/2023 until 09/22/2024 End: 12-15-2024 Creatinine includes GFR, serum Creatinine includes GFR, serum Lab Routine Chest pain, unspecified type Abnormal stress test Shortness of breath 1 Occurrences starting 12/16/2023 until 12/15/2024 [employer] Comment on above: 1 Occurrences starting 12/16/2023 until 12/15/2024 End: 02-06-2025 Creatinine includes GFR, serum Creatinine includes GFR, serum Lab Routine Abnormal stress test Chest pain, unspecified type 1 Occurrences starting 02/07/2024 until 02/06/2025 [employer] Phone: Comment on above: 1 Occurrences starting 02/07/2024 until 02/06/2025 Creatinine includes GFR, serum Creatinine includes GFR, serum Lab Routine Abnormal stress test Chest pain, unspecified type 02/07/2024 11:39 AM EST [employer] End: 10-17-2025 Creatinine includes GFR, serum Creatinine includes GFR, serum Lab Routine RLQ abdominal pain 1 Occurrences starting 10/17/2024 until 10/17/2025 [employer] Comment on above: 1 Occurrences starting 10/17/2024 until 10/17/2025 End: 09-07-2021 EBV, Quant. PCR [employer] Phone: Comment on above: Once for 1 Occurrences starting 09/08/19 until 09/07/2021 End: 10-17-2025 EGD / Colonoscopy EGD / Colonoscopy GI Routine Periumbilical abdominal pain Diarrhea, unspecified type Black stools 1 Occurrences starting 10/17/2024 until 10/17/2025 [employer] Comment on above: 1 Occurrences starting 10/17/2024 until 10/17/2025 End: 09-07-2021 Bree-Doherty Virus DNA, Quant PCR Bree-Doherty Virus DNA, Quant PCR Lab Routine Hepatomegaly Splenomegaly 1 Occurrences starting 09/07/2021 until 09/07/2021 [employer] Phone: Comment on above: 1 Occurrences starting 09/07/2021 until 09/07/2021 End: 09-07-2021 Ferritin [Mass/volume] in Serum or Plasma [employer] Phone: Comment on above: 1 Occurrences starting 09/07/2021 until 09/07/2021 End: 09-07-2021 Hepatic function 2000 panel - Serum or Plasma [employer] Phone: Comment on above: 1 Occurrences starting 09/07/2021 until 09/07/2021 End: 09-07-2021 Mitochondrial Antibodies, M2, IgG [employer] Phone: Comment on above: 1 Occurrences starting 09/07/2021 until 09/07/2021 End: 09-07-2021 Nuclear Ab [Titer] in Serum by Immunofluorescence [employer] Phone: Comment on above: 1 Occurrences starting 09/07/2021 until 09/07/2021 Patient Education Gastritis Know your Med s [facility] Work Phone: End: 09-07-2021 Smooth Muscle Antibody Quant [employer] Phone: Comment on above: 1 Occurrences starting 09/07/2021 until 09/07/2021 End: 09-07-2021 Transferrin [Mass/volume] in Serum or Plasma [employer] Phone: Comment on above: 1 Occurrences starting 09/07/2021 until 09/07/2021 Immunizations Immunization Date Immunization Notes Care Provider Jovon retana 12-31-2019 influenza, injectabl e, quadrivalent, preservative free [facility] 12-31-2019 influenza virus vacc ine, unspecified formulation [facility] 10-11-2016 influenza, seasonal, injectable, preservative free [facility] 11-24-2015 influenza, seasonal, injectable, preservative free Franc[facility] 11-21-2013 influenza, seasonal, injectable [facility] Payers Date Payer Category Payer Unknown [id number] 2024 Managed Care O (unspecified) [employer] [id number] 2023 Private Health Insurance [facility] [employer] [id number] 2023-Present [phone] [address] [place] [address] [id number] 2023 Unknown [place] [facility] [id number] 2023-Present [phone] [address] [place] [address] [id number] 2023 Unknown [id number] 2022 Self-pay 2002 Medicaid [employer] [id number] 2002-Present [phone] [address] [place] [address] [id number] 2002 Medicaid [place] [employer] [id number] 1965 Unknown [id number] 2.16.840.1.914966.3.579.2. 175 1965 Unknown [id number] 2.16.840.1.167957.3.579.2. 175 1965 Unknown [id number] 2.16.840.1.494385.3.579.2. 593 1965 Unknown [id number] 2.16.840.1.141691.3.579.2. 593 1965 Unknown [id number] 2.16.840.1.839709.3.579.2. 593 1965 Unknown [id number] 2.16.840.1.349865.3.579.2. 593 1965 Unknown [id number] 2.16.840.1.635326.3.579.2. 1259 1965 Unknown [id number] 2.16.840.1.527145.3.579.2. 1286 1965 Unknown [id number] 2.16.840.1.960081.3.579.2. 1286 1965 Unknown [id number] 2.16.840.1.013916.3.579.2. 6 1965 Unknown [id number] 2.16.840.1.089659.3.579.2. 1286 1965 Unknown [id number] 2.16.840.1.888602.3.579.2. 1286 1965 Unknown [id number] 2.16.840.1.700599.3.579.2. 1286 1965 Unknown [id number] 2.16.840.1.954350.3.579.2. 1286 1965 Unknown [id number] 2.16.840.1.514773.3.579.2. 1286 1965 Unknown [id number] 2.16.840.1.877008.3.579.2. 1286 1965 Unknown [id number] 2.16.840.1.563142.3.579.2. 1286 1965 Unknown [id number] 2.16.840.1.495016.3.579.2. 1286 1965 Unknown [id number] 2.16.840.1.169513.3.579.2. 1286 1965 Unknown [id number] 2.16.840.1.310651.3.579.2. 1286 1965 Unknown [id number] 2.16.840.1.606343.3.579.2. 1286 1965 Unknown [id number] 2.16.840.1.232834.3.579.2. 1286 1965 Unknown [id number] 2.16.840.1.714887.3.579.2. 128 1965 Unknown [id number] 2.16.840.1.438454.3.579.2. 1286 1965 Unknown [id number] 2.16.840.1.954046.3.579.2. 1286 1965 Unknown [id number] 2.16.840.1.288409.3.579.2. 1286 1965 Unknown [id number] 2.16.840.1.472169.3.579.2. 1286 1965 Unknown [id number] 2.16.840.1.180939.3.579.2. 1286 1959 Unknown [id number] Unknown [id number] 2.16.840.1.130268.3.579.2. 531 Unknown [id number] 2.16.840.1.909175.3.579.2. 531 Social History Date Type Detail Facility Start: 07-22-2021 End: 03-11-2022 Tobacco smoking status [facility] Never smoked tobacco [facility] [employer] Phone: Start: 07-22-2021 End: 03-11-2022 Tobacco use and exposure Smokeless tobacco non-user [employer] Phone: Start: 07-22-2021 Alcohol intake Lifetime non-d kelsy (finding) [employer] Phone: Start: 07-22-2021 History SDOH Alcohol Frequency 1 [employer] Phone: Start: 1965 Sex Assigned At Not on file [employer] Phone: Start: 03-27-2024 End: 12-05-2024 Alcoholic beverage intake Current non-drinker of alcohol (finding) [employer] Start: 03-07-2022 End: 03-09-2024 [facility] of Social function [facility] Start: 03-07-2022 End: 03-09-2024 [facility] Has the [employer], or brands4friends threatened to shut off services in your home in past 12Mo No [employer] Are you now , , , , never or living with a partner? [facility] [employer] How often to you hav e a drink containing alcohol? Never [facility] How many standard drinks containing alcohol do you have on a typical day? Patient does not drink [facility] Do you feel stress - tense, restless, nervous, or anxious, or unable to sleep at night because your mind is troubled all the time - these days [OSQ] Very much [facility] Start: 03-07-2022 Education 12 [employer] Start: 10-03-2014 End: 05-10-2024 Sex Female (finding) [employer] Start: 1965 Sex Assigned At Female F [facility] Medical Equipment Procedure Code Equipment Code Equipment Origin al Text Equipment Identifier Dates [place] [address] - [id number] - [id number] Start: 11-24-2021 Port Pp Mri Duo 9.5fr - [id number], [id number] [facility] Start: 10-31-2019 Comment on above: Description: ARTEM prado [id number] Start: 03-25-2020 UNIFINE PENTIPS PLUS 31 gauge x 3/16 needle [id number] Start: 03-28-2020 Goals Date Patient Goal Desired Activity /State Personal health goal Comment on above: Formatting of this n ote might be different from the original. Evaluation of progress towards goal: Patient plans to return home with self care. Personal health goal Comment on above: Formatting of this n ote might be different from the original. Evaluation of progress towards goal: Patient currently independent. Plans to discharge home after kyphoplasty, pending PT/OT evaluation. Personal health goal Personal health goal Clinical Notes 07-15-2021 to 12-11-2024 Telephone Encounter - Shelley Martel [facility] - 12/11/2024 7:41 AM EDTTelephone Encounter - Shelley Martel [facility] - 12/11/2024 7:41 AM EDTTelephone Encounter - Tish De La Fuente, [facility] - 11/27/2024 2:41 PM EDT Note Date & Type Note Facility 12-11-2024 Miscellaneous Notes ----- Message from Jerardo Romo DO sent at 12/11/2024 7:42 AM EDT ----- Please let patient know that she had a precancerous tubular adenoma and I recommend repeat colonoscopy for surveillance in 5 years unless problems. Thanks, Dr. Valdes ----- Message ----- From: Lab, Background User Sent: 12/10/2024 1:35 PM EDT To: Jerardo Romo DO documented in this encounter [facility] [employer] [facility] 12-11-2024 Telephone encounter Note ----- Message from Jerardo Romo DO sent at 12/11/2024 7:42 AM EDT ----- Please let patient know that she had a precancerous tubular adenoma and I recommend repeat colonoscopy for surveillance in 5 years unless problems. Thanks, Dr. G ----- Message ----- From: Lab, Background User Sent: 12/10/2024 1:35 PM EDT To: Jerardo Romo DO [facility] [employer] [facility] 12-06-2024 Miscellaneous Notes Phoned pt to remind of appointment scheduled on 12/07/24, reminded patient to bring current list of medications, photo ID, insurance card or cards,and any copays that will be due at that time. documented in this encounter [facility] 12-06-2024 Telephone encounter Note Phoned pt to remind of appointment scheduled on 12/07/24, reminded patient to bring current list of medications, photo ID, insurance card or cards,and any copays that will be due at that time. [facility] 11-27-2024 Miscellaneous Notes Preoperative Education Checklist- General Surgery date: 12/03/24 Surgery time: 0730 Arrival time: 0610 1. Bring a photo ID and your insurance card with you the day of surgery. You will check in at the main lobby of the [facility]- registration desk is straight ahead as soon as you walk in. Tell them you are here for surgery. 2. If you have a Living Will/Durable Power of Sausage Stuffer for Health Care that is not on file here, please bring a copy the day of surgery. 3. Please shower/bathe the night before surgery with the provided soap or wipes. Do not shower the morning of surgery- you will do use wipes when you arrive here at the hospital before getting into your surgical gown. Do not shave the area of your procedure for 2 days prior to your surgery. 4. NO powder, lotion, perfume/cologne, aftershave, make-up, deodorant, or hair products after you have bathed. 5. NO nail north korean/acrylic on at least one finger. If you are having a hand, wrist or foot surgery then all nail north korean and artificial/acrylic nails must be removed from that hand or foot. 6. Avoid ALL Aspirin and non-steroidal anti-inflammatory drugs and certain vitamins (Ibuprofen, Advil, Aleve, Excedrin, Meloxicam, Celebrex, fish/krill oil, etc.) for 7 days prior to surgery as instructed by your surgeon and/or your prescribing doctor. Tylenol IS ALLOWED. If you are on Ticlid, Xarelto, Eliquis, Pradaxa, Plavix or Coumadin, please check with your prescribing doctor for instructions for when to stop them. 7. If you use an inhaler, continue to use it routinely. 8. Nothing to eat or drink (not even water, gum, mints, or hard candy!) AFTER midnight prior to your surgery. 9. Take only medications that you are instructed to on the morning of surgery with a TINY SIP OF WATER. 10. Choose a responsible adult that will be able to drive you home when you are discharged from your hospital stay for your surgery and can stay with you in your home for 24 hours after your procedure. You must NOT drive any vehicle or operate any machinery for 24 hours after surgery. 11. When you dress for your appointment, please wear loose fitting clothing that is appropriate to accommodate your surgical area procedure. BRING WITH YOU ANY DEVICES YOU MAY NEED: CORTNEY hose, ice machine, sling/swath, brace or special shoe, oversized zip-up or button up shirt, CPAP machine if staying overnight. 12. Do NOT wear jewelry, watches, or any piercings or metal for surgery- leave these valuables and money at home. 13. Do NOT wear contact lenses for surgery- glasses are okay if needed. 14. The anesthesiologist will talk with you the day of surgery and will ask you to sign a Consent Form. 15. Refrain from smoking or any type of tobacco use for at least 8 hours and marijuana for 24 hours prior to arrival for your surgery. 16. Notify your surgeon if you develop any illness before your surgery. 17. If you are staying overnight, please DO NOT BRING your home medications with you. 18. If you have any questions prior to surgery, please call the Preadmission Testing office at [phone], Mon.-Fri. 7 a.m.-3 p.m. Leave a voicemail if needed. Pre-Surgery Instructions: Medication Instructions atorvastatin (LIPITOR) 40 mg tablet Stop taking 0 days prior to procedure brexpiprazole (REXULTI) 2 mg tablet Stop taking 0 days prior to procedure FLUoxetine (PROzac) 10 mg capsule Stop taking 0 days prior to procedure glipiZIDE (GLUCOTROL) 5 mg tablet Stop taking 0 days prior to procedure insulin glargine (LANTUS) 100 unit/mL injection Continue as prescribed, take morning of procedure- half of regular dose loperamide (IMODIUM) 2 mg capsule Stop taking 0 days prior to procedure omeprazole (PriLOSEC) 40 mg capsule Stop taking 0 days prior to procedure sod sulf-pot chloride-mag sulf 1.479-0.188- 0.225 gram tablet Stop taking 0 days prior to procedure sucralfate (CARAFATE) 1 gram tablet Stop taking 0 days prior to procedure traZODone (DESYREL) 50 mg tablet Stop taking 0 days prior to procedure documented in this encounter [employer] 11-27-2024 Nurse Note Preoperative Education Checklist- General Surgery date: 12/03/24 Surgery time: 729 Arrival time: 609 1. Bring a photo ID and your insurance card with you the day of surgery. You will check in at the main lobby of the [facility]- registration desk is straight ahead as soon as you walk in. Tell them you are here for surgery. 2. If you have a Living Will/Durable Power of Sausage Stuffer for Health Care that is not on file here, please bring a copy the day of surgery. 3. Please shower/bathe the night before surgery with the provided soap or wipes. Do not shower the morning of surgery- you will do use wipes when you arrive here at the hospital before getting into your surgical gown. Do not shave the area of your procedure for 2 days prior to your surgery. 4. NO powder, lotion, perfume/cologne, aftershave, make-up, deodorant, or hair products after you have bathed. 5. NO nail north korean/acrylic on at least one finger. If you are having a hand, wrist or foot surgery then all nail north korean and artificial/acrylic nails must be removed from that hand or foot. 6. Avoid ALL Aspirin and non-steroidal anti-inflammatory drugs and certain vitamins (Ibuprofen, Advil, Aleve, Excedrin, Meloxicam, Celebrex, fish/krill oil, etc.) for 7 days prior to surgery as instructed by your surgeon and/or your prescribing doctor. Tylenol IS ALLOWED. If you are on Ticlid, Xarelto, Eliquis, Pradaxa, Plavix or Coumadin, please check with your prescribing doctor for instructions for when to stop them. 7. If you use an inhaler, continue to use it routinely. 8. Nothing to eat or drink (not even water, gum, mints, or hard candy!) AFTER midnight prior to your surgery. 9. Take only medications that you are instructed to on the morning of surgery with a TINY SIP OF WATER. 10. Choose a responsible adult that will be able to drive you home when you are discharged from your hospital stay for your surgery and can stay with you in your home for 24 hours after your procedure. You must NOT drive any vehicle or operate any machinery for 24 hours after surgery. 11. When you dress for your appointment, please wear loose fitting clothing that is appropriate to accommodate your surgical area procedure. BRING WITH YOU ANY DEVICES YOU MAY NEED: CORTNEY hose, ice machine, sling/swath, brace or special shoe, oversized zip-up or button up shirt, CPAP machine if staying overnight. 12. Do NOT wear jewelry, watches, or any piercings or metal for surgery- leave these valuables and money at home. 13. Do NOT wear contact lenses for surgery- glasses are okay if needed. 14. The anesthesiologist will talk with you the day of surgery and will ask you to sign a Consent Form. 15. Refrain from smoking or any type of tobacco use for at least 8 hours and marijuana for 24 hours prior to arrival for your surgery. 16. Notify your surgeon if you develop any illness before your surgery. 17. If you are staying overnight, please DO NOT BRING your home medications with you. 18. If you have any questions prior to surgery, please call the Preadmission Testing office at [phone], Mon.-Fri. 7 a.m.-3 p.m. Leave a voicemail if needed. Pre-Surgery Instructions: Medication Instructions atorvastatin (LIPITOR) 40 mg tablet Stop taking 0 days prior to procedure brexpiprazole (REXULTI) 2 mg tablet Stop taking 0 days prior to procedure FLUoxetine (PROzac) 10 mg capsule Stop taking 0 days prior to procedure glipiZIDE (GLUCOTROL) 5 mg tablet Stop taking 0 days prior to procedure insulin glargine (LANTUS) 100 unit/mL injection Continue as prescribed, take morning of procedure- half of regular dose loperamide (IMODIUM) 2 mg capsule Stop taking 0 days prior to procedure omeprazole (PriLOSEC) 40 mg capsule Stop taking 0 days prior to procedure sod sulf-pot chloride-mag sulf 1.479-0.188- 0.225 gram tablet Stop taking 0 days prior to procedure sucralfate (CARAFATE) 1 gram tablet Stop taking 0 days prior to procedure traZODone (DESYREL) 50 mg tablet Stop taking 0 days prior to procedure [facility] 11-27-2024 Miscellaneous Notes EMPANELMENT OUTREACH Madhavi Easton has been contacted in effort to establish and/or re-establish care as a new patient with [facility]: Yes Outreach Date: November 27, 2024 Outreach Reason: Empanelment Outreach Method: Telephone and MyChart Outreach Attempt: First Attempt Outreach Outcome: No Answer/Busy and Letter Sent New Patient Appointment: NA Attributed Provider: Ruth Blanco CNP Additional Comments: Patient has not been seen by a [facility] PCP in 3 years. Letter sent regarding establishing care. documented in this encounter [facility] 11-27-2024 Telephone encounter Note EMPANELMENT OUTREACH Madhavi Easton has been contacted in effort to establish and/or re-establish care as a new patient with [facility]: Yes Outreach Date: November 27, 2024 Outreach Reason: Empanelment Outreach Method: Telephone and MyChart Outreach Attempt: First Attempt Outreach Outcome: No Answer/Busy and Letter Sent New Patient Appointment: NA Attributed Provider: Ruth Blanco CNP Additional Comments: Patient has not been seen by a [facility] PCP in 3 years. Letter sent regarding establishing care. [facility] 11-09-2024 Miscellaneous Notes ----- Message from Jerardo Romo DO sent at 11/09/2024 2:13 PM EDT ----- Please let pt. Know that she has chronic inactive gastritis.She should continue her omeprazole and sucralfate. ----- Message ----- From: Lab, Background User Sent: 11/08/2024 9:53 AM EDT To: Jerardo Romo DO Spoke with patient regarding pathology results. Patient verbally understood with no further questions. documented in this encounter [facility] 11-09-2024 Telephone encounter Note ----- Message from Jerardo Romo DO sent at 11/09/2024 2:13 PM EDT ----- Please let pt. Know that she has chronic inactive gastritis.She should continue her omeprazole and sucralfate. ----- Message ----- From: Lab, Background User Sent: 11/08/2024 9:53 AM EDT To: Jerardo Romo DO [facility] 11-09-2024 Telephone encounter Note Spoke with patient regarding pathology results. Patient verbally understood with no further questions. [facility] 11-05-2024 Miscellaneous Notes ----- Message from SEUN Choe sent at 11/05/2024 8:34 AM EDT ----- Regarding: Results Please let patient know CT was normal. Thank you. ----- Message ----- From: Interface - Rad Results/Orders In 1 Sent: 10/30/2024 11:31 AM EDT To: SEUN Gonzalez Spoke with patient regarding CT results. Patient verbally understood with no further questions. documented in this encounter [facility] 11-05-2024 Telephone encounter Note ----- Message from SEUN Choe sent at 11/05/2024 8:34 AM EDT ----- Regarding: Results Please let patient know CT was normal. Thank you. ----- Message ----- From: Interface - Rad Results/Orders In 1 Sent: 10/30/2024 11:31 AM EDT To: SEUN Gonzalez [facility] 11-05-2024 Telephone encounter Note Spoke with patient regarding CT results. Patient verbally understood with no further questions. [facility] 10-30-2024 Miscellaneous Notes Preoperative Education Checklist- General Surgery date: 11/05/24 Surgery time: 929 Arrival time: 729 1. Bring a photo ID and your insurance card with you the day of surgery. You will check in at the main lobby of the [facility]- registration desk is straight ahead as soon as you walk in. Tell them you are here for surgery. 2. If you have a Living Will/Durable Power of Sausage Stuffer for Health Care that is not on file here, please bring a copy the day of surgery. 3. Please shower/bathe the night before surgery with the provided soap or wipes. Do not shower the morning of surgery- you will do use wipes when you arrive here at the hospital before getting into your surgical gown. Do not shave the area of your procedure for 2 days prior to your surgery. 4. NO powder, lotion, perfume/cologne, aftershave, make-up, deodorant, or hair products after you have bathed. 5. NO nail north korean/acrylic on at least one finger. If you are having a hand, wrist or foot surgery then all nail north korean and artificial/acrylic nails must be removed from that hand or foot. 6. Avoid ALL Aspirin and non-steroidal anti-inflammatory drugs and certain vitamins (Ibuprofen, Advil, Aleve, Excedrin, Meloxicam, Celebrex, fish/krill oil, etc.) for 7 days prior to surgery as instructed by your surgeon and/or your prescribing doctor. Tylenol IS ALLOWED. If you are on Ticlid, Xarelto, Eliquis, Pradaxa, Plavix or Coumadin, please check with your prescribing doctor for instructions for when to stop them. 7. If you use an inhaler, continue to use it routinely. 8. Nothing to eat or drink (not even water, gum, mints, or hard candy!) AFTER midnight prior to your surgery. 9. Take only medications that you are instructed to on the morning of surgery with a TINY SIP OF WATER. 10. Choose a responsible adult that will be able to drive you home when you are discharged from your hospital stay for your surgery and can stay with you in your home for 24 hours after your procedure. You must NOT drive any vehicle or operate any machinery for 24 hours after surgery. 11. When you dress for your appointment, please wear loose fitting clothing that is appropriate to accommodate your surgical area procedure. BRING WITH YOU ANY DEVICES YOU MAY NEED: CORTNEY hose, ice machine, sling/swath, brace or special shoe, oversized zip-up or button up shirt, CPAP machine if staying overnight. 12. Do NOT wear jewelry, watches, or any piercings or metal for surgery- leave these valuables and money at home. 13. Do NOT wear contact lenses for surgery- glasses are okay if needed. 14. The anesthesiologist will talk with you the day of surgery and will ask you to sign a Consent Form. 15. Refrain from smoking or any type of tobacco use for at least 8 hours and marijuana for 24 hours prior to arrival for your surgery. 16. Notify your surgeon if you develop any illness before your surgery. 17. If you are staying overnight, please DO NOT BRING your home medications with you. 18. If you have any questions prior to surgery, please call the Preadmission Testing office at [phone], Mon.-Fri. 7 a.m.-3 p.m. Leave a voicemail if needed. Pre-Surgery Instructions: Medication Instructions atorvastatin (LIPITOR) 40 mg tablet Stop taking 0 days prior to procedure brexpiprazole (REXULTI) 2 mg tablet Stop taking 0 days prior to procedure FLUoxetine (PROzac) 10 mg capsule Stop taking 0 days prior to procedure glipiZIDE (GLUCOTROL) 5 mg tablet Stop taking 0 days prior to procedure insulin glargine (LANTUS) 100 unit/mL injection Continue as prescribed, take morning of procedure- take half of regular dose, 2 units loperamide (IMODIUM) 2 mg capsule Stop taking 0 days prior to procedure omeprazole (PriLOSEC) 40 mg capsule Stop taking 0 days prior to procedure sod sulf-pot chloride-mag sulf 1.479-0.188- 0.225 gram tablet Stop taking 0 days prior to procedure traZODone (DESYREL) 50 mg tablet Stop taking 0 days prior to procedure [facility] [employer] [facility] Nurse Note Preoperative Education Checklist- General Surgery date: 11/05/24 Surgery time: 929 Arrival time: 729 1. Bring a photo ID and your insurance card with you the day of surgery. You will check in at the main lobby of the [facility]- registration desk is straight ahead as soon as you walk in. Tell them you are here for surgery. 2. If you have a Living Will/Durable Power of Sausage Stuffer for Health Care that is not on file here, please bring a copy the day of surgery. 3. Please shower/bathe the night before surgery with the provided soap or wipes. Do not shower the morning of surgery- you will do use wipes when you arrive here at the hospital before getting into your surgical gown. Do not shave the area of your procedure for 2 days prior to your surgery. 4. NO powder, lotion, perfume/cologne, aftershave, make-up, deodorant, or hair products after you have bathed. 5. NO nail north korean/acrylic on at least one finger. If you are having a hand, wrist or foot surgery then all nail north korean and artificial/acrylic nails must be removed from that hand or foot. 6. Avoid ALL Aspirin and non-steroidal anti-inflammatory drugs and certain vitamins (Ibuprofen, Advil, Aleve, Excedrin, Meloxicam, Celebrex, fish/krill oil, etc.) for 7 days prior to surgery as instructed by your surgeon and/or your prescribing doctor. Tylenol IS ALLOWED. If you are on Ticlid, Xarelto, Eliquis, Pradaxa, Plavix or Coumadin, please check with your prescribing doctor for instructions for when to stop them. 7. If you use an inhaler, continue to use it routinely. 8. Nothing to eat or drink (not even water, gum, mints, or hard candy!) AFTER midnight prior to your surgery. 9. Take only medications that you are instructed to on the morning of surgery with a TINY SIP OF WATER. 10. Choose a responsible adult that will be able to drive you home when you are discharged from your hospital stay for your surgery and can stay with you in your home for 24 hours after your procedure. You must NOT drive any vehicle or operate any machinery for 24 hours after surgery. 11. When you dress for your appointment, please wear loose fitting clothing that is appropriate to accommodate your surgical area procedure. BRING WITH YOU ANY DEVICES YOU MAY NEED: CORTNEY hose, ice machine, sling/swath, brace or special shoe, oversized zip-up or button up shirt, CPAP machine if staying overnight. 12. Do NOT wear jewelry, watches, or any piercings or metal for surgery- leave these valuables and money at home. 13. Do NOT wear contact lenses for surgery- glasses are okay if needed. 14. The anesthesiologist will talk with you the day of surgery and will ask you to sign a Consent Form. 15. Refrain from smoking or any type of tobacco use for at least 8 hours and marijuana for 24 hours prior to arrival for your surgery. 16. Notify your surgeon if you develop any illness before your surgery. 17. If you are staying overnight, please DO NOT BRING your home medications with you. 18. If you have any questions prior to surgery, please call the Pread[facility] office at [phone], Mon.-Fri. 7 a.m.-3 p.m. Leave a voicemail if needed. Pre-Surgery Instructions: Medication Instructions atorvastatin (LIPITOR) 40 mg tablet Stop taking 0 days prior to procedure brexpiprazole (REXULTI) 2 mg tablet Stop taking 0 days prior to procedure FLUoxetine (PROzac) 10 mg capsule Stop taking 0 days prior to procedure glipiZIDE (GLUCOTROL) 5 mg tablet Stop taking 0 days prior to procedure insulin glargine (LANTUS) 100 unit/mL injection Continue as prescribed, take morning of procedure- take half of regular dose, 2 units loperamide (IMODIUM) 2 mg capsule Stop taking 0 days prior to procedure omeprazole (PriLOSEC) 40 mg capsule Stop taking 0 days prior to procedure sod sulf-pot chloride-mag sulf 1.479-0.188- 0.225 gram tablet Stop taking 0 days prior to procedure traZODone (DESYREL) 50 mg tablet Stop taking 0 days prior to procedure [facility] [employer] [facility] 10-17-2024 History of Presen t illness Narrative Images from the original note were not included. Chief Complaint: Vomiting History of Present Illness Madhavi Easton is a 58 y.o. female who presents to the office for several GI complaints. She states for the past 2-3 weeks she has had epigastric/periumbilical pain with associated vomiting. She also endorses pain on the sides of her abdomen and diarrhea with 2 bowel movements daily. She denies any sick contacts. She denies heartburn. She reports black stools. Her pain is not relieved after she has a bowel movement. She states she has been unable to sleep because the pain is so bad. She states she felt as if she had a fever, but did not take her temperature as her thermometer does not work. She feels as if her omeprazole helps some. Her last EGD was in 2019. Esophagitis and gastritis noted. She can not remember when her last colonoscopy was. Review of Systems Constitutional: Negative for fever and unexpected weight change. HENT: Negative for trouble swallowing. Respiratory: Negative for shortness of breath. Cardiovascular: Negative for chest pain. Gastrointestinal: Positive for vomiting, abdominal pain, diarrhea and black tarry stool. Negative for constipation. Genitourinary: Negative for dysuria and difficulty urinating. Musculoskeletal: Negative for gait problem. Skin: Negative for rash and wound. Neurological: Negative for dizziness, weakness and light-headedness. Hematological: Does not bruise/bleed easily. Psychiatric/Behavioral: Negative for confusion. Past Medical History: Diagnosis Date Abnormal mammogram Acute leukemia ([facility]) 2014 in remission Anxiety Arthritis Asthma Breast injury Chronic kidney disease COPD (chronic obstructive pulmonary disease) ([facility]) Depression Diabetes mellitus type 2, controlled ([facility]) Dry mouth 05/16/2019 STATES DENTIST SAID ALL TEETH ARE FALLING OUT Dyslipidemia Endometrial cancer ([facility]) 04/05/1989 Epilepsy ([facility]) Essential hypertension, benign GERD (gastroesophageal reflux disease) IBS (irritable bowel syndrome) Kidney stones Migraines Nosebleed Obesity Other cirrhosis of liver ([facility]) 03/19/2021 Ovarian cancer ([facility]) 2021 Nomore cancer now Pneumonia PONV (postoperative nausea and vomiting) Sinusitis, chronic Sleep apnea CPAP Thrombocytopenia Visual impairment Past Surgical History: Procedure Laterality Date AUGMENTATION VERTEBRAL KYPHOPLASTY SPINE T12; L1; L3 N/A 11/24/2021 Performed by Matthew Messer Jr., MD at [facility] CHOLECYSTECTOMY DAVINCI HYSTERECTOMY / BSO left SENTINAL LYMPH NODE DISSECTION, right pelvic node disection and pelvic washings Bilateral 10/04/2019 Performed by Oscar Marks MD at [facility] DILATION AND CURETTAGE OF UTERUS 2019 EGD N/A 05/14/2019 Performed by Jerardo Romo DO at [facility] HYSTERECTOMY 10/04/2019 INJECTION MEDIAL BRANCH NERVE BLOCK Bilateral C 2/3 /4 Bilateral 02/02/2019 Performed by Som Mcgee MD at [facility] PAIN KNEE ARTHROSCOPY Right OOPHORECTOMY 1989 50% OF 1 OVARY REMOVED SHOULDER ARTHROSCOPY Left 06/2008 TONSILLECTOMY child Allergies Allergen Reactions Alogliptin Anaphylaxis Alogliptin Benzoate Anaphylaxis Amoxicillin Swelling Throat swelling Amoxicillin Trihydrate Anaphylaxis Augmentin [Amoxicillin-Pot Clavulanate] Swelling THROAT AND TONGUE SWELLING Clavulanic Acid Anaphylaxis Loratadine Swelling THROAT AND TONGUE SWELLING Motrin [Ibuprofen] Other (See Comments) COAGULATION DISORDER Potassium Clavulanate Anaphylaxis [place] Hives Jardiance [Empagliflozin] Nausea And Vomiting Trulicity [Dulaglutide] Albuterol Headache Current Outpatient Medications: atorvastatin (LIPITOR) 40 mg tablet, Take 1 tablet (40 mg total) by mouth in the morning., Disp: , Rfl: brexpiprazole (REXULTI) 2 mg tablet, Take 1 tablet (2 mg total) by mouth., Disp: , Rfl: FLUoxetine (PROzac) 10 mg capsule, Take 1 capsule (10 mg total) by mouth in the morning., Disp: , Rfl: glipiZIDE (GLUCOTROL) 5 mg tablet, Take 1 tablet (5 mg total) by mouth in the morning and 1 tablet (5 mg total) in the evening. Take before meals. Indications: type 2 diabetes mellitus., Disp: , Rfl: insulin glargine (LANTUS) 100 unit/mL injection, Inject under the skin nightly., Disp: , Rfl: loperamide (IMODIUM) 2 mg capsule, take 1 capsule by mouth four times a day if needed for diarrhea, Disp: 30 capsule, Rfl: 0 omeprazole (PriLOSEC) 40 mg capsule, take 1 capsule by mouth once daily, Disp: 30 capsule, Rfl: 10 traZODone (DESYREL) 50 mg tablet, Take 1 tablet (50 mg total) by mouth nightly as needed for sleep., Disp: , Rfl: sod sulf-pot chloride-mag sulf 1.479-0.188- 0.225 gram tablet, Please see instructional sheet given by physicians office., Disp: 24 tablet, Rfl: 0 No current facility-administered medications for this visit. Facility-Administered Medications Ordered in Other Visits: sodium chloride 0.9 % flush 10 mL, 10 mL, intravenous, PRN, Phoenix Kemp MD (Kenny), 10 mL at 05/15/21 0920 Social History Socioeconomic History Marital status: Spouse name: Not on file Number of children: Not on file Years of education: Not on file Highest education level: 12th grade Occupational History Not on file Tobacco Use Smoking status: Never Smokeless tobacco: Never Vaping Use Vaping status: Never Used Substance and Sexual Activity Alcohol use: No Drug use: No Sexual activity: Defer Other Topics Concern Caffeine Use No Social History Narrative Not on file Social Drivers of Health Financial Resource Strain: Low Risk (03/07/2022) Overall Financial Resource Strain (CARDIA) Difficulty of Paying Living Expenses: Not hard at all Food Insecurity: No Food Insecurity (10/17/2024) Hunger Screening Food Insecurity - Worry: Never True Food Insecurity - Inability: Never True Transportation Needs: No Transportation Needs (03/09/2024) PRAPARE - Transportation Lack of Transportation (Medical): No Lack of Transportation (Non-Medical): No Physical Activity: Sufficiently Active (03/07/2022) Exercise Vital Sign Days of Exercise per Week: 7 days Minutes of Exercise per Session: 40 min Stress: Stress Concern Present (03/07/2022) [employer] [employer] - Occupational Stress Questionnaire Feeling of Stress : Very much Social Connections: Socially Isolated (03/07/2022) Social Connection and Isolation Panel [NHANES] Frequency of Communication with Friends and Family: Three times a week Frequency of Social Gatherings with Friends and Family: Twice a week Attends Christian Services: Never Active Member of Clubs or Organizations: No Attends Club or Organization Meetings: Never Marital Status: Interpersonal Safety: Not At Risk (03/09/2024) Humiliation, Afraid, Rape, and Kick questionnaire Fear of Current or Ex-Partner: No Emotionally Abused: No Physically Abused: No Sexually Abused: No Housing Instability: Low Risk (03/09/2024) Housing Instability Housing Instability: No Family History Adopted: Yes Problem Relation Age of Onset Stroke Father Heart disease Father COPD Father Diabetes Father Ovarian cancer Sister Uterine cancer Daughter 29 Endometrial cancer Daughter Ovarian cancer Daughter Cystic fibrosis Son Anesthesia problems Neg Hx Breast cancer Neg Hx Objective Physical Exam Constitutional: General: She is not in acute distress. Appearance: Normal appearance. She is not ill-appearing. HENT: Head: Normocephalic and atraumatic. Mouth/Throat: Mouth: Mucous membranes are moist. Eyes: Pupils: Pupils are equal, round, and reactive to light. Cardiovascular: Rate and Rhythm: Normal rate. Pulmonary: Effort: Pulmonary effort is normal. No respiratory distress. Abdominal: General: There is no distension. Palpations: Abdomen is soft. Tenderness: There is abdominal tenderness in the right lower quadrant and periumbilical area. There is no guarding. Musculoskeletal: General: Normal range of motion. Skin: General: Skin is warm and dry. Neurological: Mental Status: She is alert and oriented to person, place, and time. Mental status is at baseline. Vital Signs: Blood pressure 115/64, pulse 67, height 165.1 cm (5' 5 ), weight 75 kg (165 lb 6.4 oz), last menstrual period 09/18/2019, not currently . Respiratory Source: No data recorded Admission Weight: Weight: 75 kg (165 lb 6.4 oz) Labs Lab Results Component Value Date WBC 5.4 09/25/2024 HGB 14.8 09/25/2024 HCT 43.5 09/25/2024 MCV 96 09/25/2024 PLT 89 (L) 09/25/2024 Lab Results Component Value Date GLU 318 (H) 03/09/2024 CALCIUM 8.5 03/09/2024 K 3.7 03/09/2024 CO2 26 03/09/2024 CL 104 03/09/2024 BUN 15 03/09/2024 CREATININE 0.71 03/09/2024 No results found for: AMYLASE Lab Results Component Value Date LIPASE 26 03/08/2024 Lab Results Component Value Date ALT 28 03/09/2024 AST 29 03/09/2024 ALKPHOS 57 03/09/2024 Lab Results Component Value Date INR 1.3 (H) 11/21/2021 INR 1.2 10/31/2019 PROTIME 14.4 (H) 11/21/2021 PROTIME 13.1 (H) 10/31/2019 Assessment Madhavi Easton is a 58 y.o.female with vomiting, epigastric/periumbilical pain, right lower quadrant pain, black stools, diarrhea. Plan CT abdomen and pelvis. Also scheduled for EGD and colonoscopy with possible biopsy and/or polypectomy. Risks, benefits, and alternatives discussed with patient. Patient verbalizes understanding and wishes to proceed. Rule out gastritis, ulcer. She can not remember in her last colonoscopy was. Evaluation included: Preparing to see the patient (e.g., review of tests) Obtaining and/or reviewing separately obtained history Performing a medically appropriate examination and/or evaluation Counseling and educating the patient/family/caregiver Referring and communicating with other health care trainer Vomiting, unspecified vomiting type, unspecified whether nausea present [R11.10] SEUN GONZALEZ [facility] General Surgery [place] This note was created with the assistance of a speech recognition program. While intending to generate a timely document that accurately reflects the content of the visit, no guarantee can be provided that every grammatical or spelling mistake has been or will be identified or corrected. Thank you for your understanding. SEUN Gonzalez 10/18/24 1010 documented in this encounter [facility] 10-15-2024 Miscellaneous Notes Madhavi called the office at 8:33 am and left a message to cancel her appointment as she doesn't have a referral. 8:56 am I called Madhavi back and left a message on her voicemail that she can keep her appointment, we can just see her as a self referral. Patient didn't come in for her 12 noon appointment. documented in this encounter [facility] 10-15-2024 Telephone encounter Note Madhavi called the office at 8:33 am and left a message to cancel her appointment as she doesn't have a referral. 8:56 am I called Madhavi back and left a message on her voicemail that she can keep her appointment, we can just see her as a self referral. Patient didn't come in for her 12 noon appointment. [employer] 10-01-2024 History of Presen t illness Narrative Images from the original note were not included. [facility] [address] [place] [id number] 10/01/2024 Chief Complaint Patient presents with Follow-up Subjective/Interval events: Madhavi Easton is a 58 y.o. year old female who is an established patient seen today in the Hematology/Medical Oncology clinic. Presents for follow up visit for endometrial cancer and ITP. She is currently on surveillance. Patient reports that she occasionally has fatigue. She does have a history of CP and SOB over the last 1 year s/p accident resulting in bruised chest wall. She does follow with cardiology for this and it has been unchanged. She denies abdominal pain, pelvic pain. She denies any new vaginal bleeding or pain. She denies any other overt bleeding. CT reviewed without any re-occurrence of cancer at this time. All questions answered to the patient's satisfaction. History of Present Illness: Oncology History Overview Note Ms. Easton is a 57 y.o. female with history of a seizure disorder has been on Depakote for years. Off Depakote 2016. Has been followed by our office for borderline thrombocytopenia and mild lymphocytosis. 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 MMR intact. She is s/p 6 cycles iliamna doublet therapy. 10/04/19 - RALH-LSNLD, RLND, BSO 11/07/19 - 12/12/19 Carbo/Taxol x 2 cycles (thrombocytopenia) 01/16/20 - 03/26/2020 Cis/Taxol (4 cycles) 04/10/20 - post tx scans show lymphadenopathy related to previous SLND Endometrial cancer determined by uterine biopsy ([facility]) 09/25/2019 Initial Diagnosis Endometrial cancer determined by uterine biopsy ([facility]) 10/19/2019 - Cancer Staged Staging form: Corpus Uteri - Carcinoma and Carcinosarcoma, AJCC 8th Edition - Clinical stage from 10/19/2019: FIGO Stage IIIA (cT3a, cN0, cM0) - Signed by SERGO Ortiz on 10/19/2019 Review of Symptoms as below unless otherwise stated in HPI Review of symptoms is covered in subjective/interval events. All other systems are negative unless stated above. ECO- Symptomatic; fully ambulatory Physical exam: Vitals: BP 129/79 Pulse 64 Temp 36.3 C (97.4 F) (Oral) Resp 15 Ht 165.1 cm (5' 5 ) Wt 75.7 kg (166 lb 12.8 oz) LMP 09/18/2019 SpO2 100% BMI 27.76 kg/m Body mass index is 27.76 kg/m . Wt Readings from Last 3 Encounters: 10/01/24 75.7 kg (166 lb 12.8 oz) 06/18/24 75.1 kg (165 lb 9.6 oz) 06/08/24 74.8 kg (165 lb) Physical Exam Constitutional: Appearance: Normal appearance. She is overweight. Cardiovascular: Rate and Rhythm: Normal rate and regular rhythm. Pulses: Normal pulses. Pulmonary: Effort: Pulmonary effort is normal. Abdominal: General: Abdomen is round. Palpations: Abdomen is soft, non-tender. Musculoskeletal: General: Normal range of motion. Cervical back: Normal range of motion and neck supple. Skin: General: Skin is warm and dry. Capillary Refill: Capillary refill takes less than 2 seconds. Neurological: General: No focal deficit present. Mental Status: She is alert and oriented to person, place, and time. Mental status is at baseline. Psychiatric: Mood and Affect: Mood normal. Behavior: Behavior normal. Thought Content: Thought content normal. Judgment: Judgment normal. Recent labs: Recent Results (from the past week) CBC with auto diff Collection Time: 09/25/24 10:59 AM Result Value Ref Range WBC 5.4 4 - 11 x10E9/L RBC Count 4.54 3.8 - 5.2 X10E12/L Hemoglobin 14.8 11.7 - 15.5 g/dL Hematocrit 43.5 35 - 47 % MCV 96 80 - 100 fL MCH 32.5 27 - 34 pg MCHC 33.9 32 - 36 g/dL RDW 13.8 11.5 - 15 % Platelet Count 89 (L) 150 - 450 X10E9/L MPV 10.0 7 - 12 fL Neutrophils % 48.0 % Lymphocytes % 46.6 % Monocytes % 4.3 % Eosinophils % 0.5 % Basophils % 0.6 % Neutrophils Absolute (A) 2.6 1.5 - 6.6 10*3/uL Lymphocytes Absolute 2.5 1.0 - 3.5 10*3/uL Monocytes Absolute 0.2 0.0 - 0.9 10*3/uL Eosinophils Absolute 0.0 0.0 - 0.4 10*3/uL Basophils Absolute 0.0 0.0 - 0.2 10*3/uL Differential Type AUTOMATED DIFFERENTIAL Problem list: Problem List Items Addressed This Visit Digestive Other cirrhosis of liver (CMS-HCC) Genitourinary Endometrial cancer determined by uterine biopsy ([facility]) - Primary Hematopoietic and Hemostatic Thrombocytopenia Relevant Orders CBC auto differential Other Visit Diagnoses Endometrial carcinoma ([facility]) Hepatosplenomegaly Impression: Latest Reference Range & Units 09/25/24 10:59 White Blood Cells 4 - 11 x10E9/L 5.4 RBC count 3.8 - 5.2 X10E12/L 4.54 Hemoglobin 11.7 - 15.5 g/dL 14.8 Hematocrit 35 - 47 % 43.5 MCV 80 - 100 fL 96 MCH 27 - 34 pg 32.5 MPV 7 - 12 fL 10.0 MCHC 32 - 36 g/dL 33.9 RDW 11.5 - 15 % 13.8 Platelets 150 - 450 X10E9/L 89 (L) Basophils % % 0.6 Eosinophils % % 0.5 % monocytes % 4.3 % neutrophils % 48.0 % lymphocytes % 46.6 Absolute Basophil 0.0 - 0.2 10*3/uL 0.0 Differential Type AUTOMATED DIFFERENTIAL Absolute Eosinophil 0.0 - 0.4 10*3/uL 0.0 Lymphocytes Absolute 1.0 - 3.5 10*3/uL 2.5 Monocytes Absolute 0.0 - 0.9 10*3/uL 0.2 Neutrophils Absolute (A) 1.5 - 6.6 10*3/uL 2.6 (L): Data is abnormally low Plan: Labs reviewed Platelets 83k, stable Reviewed CT AB/P (s/p RALH-LSNLD, RLND, BSO -- chemo completed 12/2019), currently on surveillance No evidence of cancer Hepatosplenomegaly noted Cirrhosis history Following with PCP and GI for weight loss Follow up in 1 year with labs prior, CBC-d OARRS/MAPS reviewed, appropriate. Thank you for allowing me to participate in this patient's care. SEUN GUERRERO 10/01/2024 2:51 PM Total time spent was 35 minutes: Preparing to see the patient (e.g., review of tests) Obtaining and/or reviewing separately obtained history Performing a medically appropriate examination and/or evaluation Counseling and educating the patient/family/caregiver Ordering medications, tests, or procedures Referring and communicating with other health care trainer (not separately reported) Documenting clinical information in the electronic or other health record Independently interpreting results (not separately reported) and communicating results to the patient/family/caregiver Care coordination (not separately reported) ----- Please note that portions of this note may have been generated using voice recognition Values of n dictation software. Although every effort was made to ensure the accuracy of any automated transcriptions, some errors may have occurred. SEUN Guerrero 10/01/24 1451 [facility] Instructions SEUN Guerrero - 10/01/2024 8:30 AM EDT Labs reviewed Platelets 83k, stable Reviewed CT AB/P (s/p RALH-LSNLD, RLND, BSO -- chemo completed 12/2019), currently on surveillance No evidence of cancer Hepatosplenomegaly noted Cirrhosis history Following with PCP and GI for weight loss Follow up in 1 year with labs prior, CBC-d documented [facility] History of Presen t illness Narrative Madhavi Easton Date of visit: 06/18/2024 Date of : 1965 Age: 58 y.o. Patient Active Problem List Diagnosis Thrombocytopenia Spondylosis without myelopathy or radiculopathy, lumbar region Spondylosis without myelopathy or radiculopathy, lumbosacral region Cervical spondylosis without myelopathy Stenosis of cervical spine Cervical adenopathy Gastroesophageal reflux disease without esophagitis Headache FOREIGN on CPAP Moderate persistent asthma without complication Endometrial cancer determined by uterine biopsy ([facility]) Obesity (BMI 30.0-34.9) Essential hypertension, benign Chronic kidney disease Diabetes mellitus type 2, controlled ([facility]) Dyslipidemia Hyperglycemia Dysuria Acute cystitis with hematuria Fall (on) (from) other stairs and steps, initial encounter Injury of nose Injury of left foot Injury of right foot Orbital contusion, left, sequela Other cirrhosis of liver ([facility]) Fall 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 ([facility]) Pathological fracture of lumbar vertebra due to secondary osteoporosis ([facility]) Age-related osteoporosis with current pathological fracture Other insomnia Umbilical hernia Gastroenteritis Allergies Allergen Reactions Alogliptin Anaphylaxis Alogliptin Benzoate Anaphylaxis Amoxicillin Swelling Throat swelling Amoxicillin Trihydrate Anaphylaxis Augmentin [Amoxicillin-Pot Clavulanate] Swelling THROAT AND TONGUE SWELLING Clavulanic Acid Anaphylaxis Loratadine Swelling THROAT AND TONGUE SWELLING Motrin [Ibuprofen] Other (See Comments) COAGULATION DISORDER Potassium Clavulanate Anaphylaxis [place] Hives Jardiance [Empagliflozin] Nausea And Vomiting Albuterol Headache Current Outpatient Medications Medication Sig Dispense Refill atorvastatin (LIPITOR) 40 mg tablet Take 1 tablet (40 mg total) by mouth in the morning. brexpiprazole (REXULTI) 2 mg tablet Take 1 tablet (2 mg total) by mouth. FLUoxetine (PROzac) 10 mg capsule Take 1 capsule (10 mg total) by mouth in the morning. glipiZIDE (GLUCOTROL) 5 mg tablet Take 1 tablet (5 mg total) by mouth in the morning and 1 tablet (5 mg total) in the evening. Take before meals. Indications: type 2 diabetes mellitus. insulin glargine (LANTUS) 100 unit/mL injection Inject under the skin nightly. lisinopril (PRINIVIL,ZESTRIL) 10 mg tablet Take 1 tablet (10 mg total) by mouth in the morning. Indications: high blood pressure. 0 loperamide (IMODIUM) 2 mg capsule take 1 capsule by mouth four times a day if needed for diarrhea 30 capsule 0 omeprazole (PriLOSEC) 40 mg capsule take 1 capsule by mouth once daily 30 capsule 10 traZODone (DESYREL) 50 mg tablet Take 1 tablet (50 mg total) by mouth nightly as needed for sleep. No current facility-administered medications for this visit. Facility-Administered Medications Ordered in Other Visits Medication Dose Route Frequency Provider Last Rate Last Admin sodium chloride 0.9 % flush 10 mL 10 mL intravenous BALJINDERN Phoenix Kemp MD (Kenny) 10 mL at 05/15/21 0920 Chief Complaint Patient presents with Follow-up EST PT F/U CTA DONE SCHED W/ PT lmom for pt re: her OON ins.06-13-24 sjn History of Present Illness Pleasant 58-year-old lady with past medical history of mild coronary artery disease on coronary CTA, dyslipidemia, diabetes mellitus, hypertension. Unfortunately she was diagnosed with cervical cancer and gastric cancer over the last couple of months. She denies chest pain, shortness for breath and palpitations. She has no anginal symptoms with activity. Past Medical History: Diagnosis Date Abnormal mammogram Acute leukemia ([facility]) 2014 in remission Anxiety Arthritis Asthma Breast injury Chronic kidney disease COPD (chronic obstructive pulmonary disease) ([facility]) Depression Diabetes mellitus type 2, controlled ([facility]) Dry mouth 05/16/2019 STATES DENTIST SAID ALL TEETH ARE FALLING OUT Dyslipidemia Endometrial cancer ([facility]) 04/05/1989 Epilepsy ([facility]) Essential hypertension, benign GERD (gastroesophageal reflux disease) IBS (irritable bowel syndrome) Kidney stones Migraines Nosebleed Obesity Other cirrhosis of liver ([facility]) 03/19/2021 Ovarian cancer ([facility]) 2021 Nomore cancer now Pneumonia PONV (postoperative nausea and vomiting) Sinusitis, chronic Sleep apnea CPAP Thrombocytopenia Visual impairment No data recorded No data recorded No data recorded Past Surgical History: Procedure Laterality Date AUGMENTATION VERTEBRAL KYPHOPLASTY SPINE T12; L1; L3 N/A 11/24/2021 Performed by Matthew Messer Jr., MD at [facility] CHOLECYSTECTOMY DAVINCI HYSTERECTOMY / BSO left SENTINAL LYMPH NODE DISSECTION, right pelvic node disection and pelvic washings Bilateral 10/04/2019 Performed by Oscar Marks MD at [facility] DILATION AND CURETTAGE OF UTERUS 2019 EGD N/A 05/14/2019 Performed by Jerardo Romo DO at [facility] HYSTERECTOMY 10/04/2019 INJECTION MEDIAL BRANCH NERVE BLOCK Bilateral C 04/02 05/01 Bilateral 02/02/2019 Performed by Som Mcgee MD at [facility] K[facility]EE ARTHROSCOPY Right OOPHORECTOMY 1989 50% OF [...] Hx Social History Socioeconomic History Marital status: Spouse name: Not on file Number of children: Not on file Years of education: Not on file Highest education level: 12th grade Occupational History Not on file Tobacco Use Smoking status: Never Smokeless tobacco: Never Vaping Use Vaping status: Never Used Substance and Sexual Activity Alcohol use: No Drug use: No Sexual activity: Defer Other Topics Concern Caffeine Use No Social History Narrative Not on file Social Drivers of Health Financial Resource Strain: Low Risk (03/07/2022) Overall Financial Resource Strain (CARDIA) Difficulty of Paying Living Expenses: Not hard at all Food Insecurity: No Food Insecurity (06/18/2024) Hunger Screening Food Insecurity - Worry: Never True Food Insecurity - Inability: Never True Transportation Needs: No Transportation Needs (03/09/2024) PRAPARE - Transportation Lack of Transportation (Medical): No Lack of Transportation (Non-Medical): No Physical Activity: Sufficiently Active (03/07/2022) Exercise Vital Sign Days of Exercise per Week: 7 days Minutes of Exercise per Session: 40 min Stress: Stress Concern Present (03/07/2022) [employer] - Occupational Stress Questionnaire Feeling of Stress : Very much Social Connections: Socially Isolated (03/07/2022) Social Connection and Isolation Panel [NHANES] Frequency of Communication with Friends and Family: Three times a week Frequency of Social Gatherings with Friends and Family: Twice a week Attends Christian Services: Never Active Member of Clubs or Organizations: No Attends Club or Organization Meetings: Never Marital Status: Interpersonal Safety: Not At Risk (03/09/2024) Humiliation, Afraid, Rape, and Kick questionnaire Fear of Current or Ex-Partner: No Emotionally Abused: No Physically Abused: No Sexually Abused: No Housing Instability: Low Risk (03/09/2024) Housing Instability Housing Instability: No Review of Systems Review of Systems Constitutional: Negative. HENT: Negative. Eyes: Negative. Cardiovascular: Negative. Respiratory: Negative. Endocrine: Negative. Hematologic/Lymphatic: Negative. Skin: Negative. Musculoskeletal: Negative. Gastrointestinal: Negative. Genitourinary: Negative. Neurological: Negative. Psychiatric/Behavioral: Negative. Allergic/Immunologic: Negative. Vascular: Negative. CARDIOVASCULAR: Please review HPI. Physical Examination General appearance: Alert, oriented and cooperative. In no acute distress. Skin: Warm and dry to touch. Head: Normocephalic, without obvious abnormality, atraumatic. Ears, Nose, Mouth, Throat: Throat clear without erythema or exudate. Dentition intact. Eyes: Conjunctivae unremarkable, EOM intact. Neck: No JVD, No carotid bruit. Neck supple, trachea midline. Respiratory: Clear to auscultation bilaterally, no use of accessory muscles. Cardiovascular: RRR with normal S1 and S2 with no murmurs. Gastrointestinal: Soft, non-tender. Bowel sounds normal. Musculoskeletal: No peripheral edema. Neurologic: Oriented to time, person and place, affect appropriate. No focal/major motor defects noted. Psychiatric: Appropriate mood, memory and judgement. VITAL SIGNS: BP 118/82 Pulse 73 Ht 165.1 cm (5' 5 ) Wt 75.1 kg (165 lb 9.6 oz) LMP 09/18/2019 SpO2 99% BMI 27.56 kg/m Orders Placed or Reconciled This Encounter Medications atorvastatin (LIPITOR) 40 mg tablet Sig: Take 1 tablet (40 mg total) by mouth in the morning. FLUoxetine (PROzac) 10 mg capsule Sig: Take 1 capsule (10 mg total) by mouth in the morning. Medications Discontinued During This Encounter Medication Reason meclizine (ANTIVERT) 25 mg tablet Therapy completed metFORMIN (GLUCOPHAGE) 500 mg tablet Therapy completed naloxone (NARCAN) 4 mg/actuation spray,non-aerosol nasal spray Therapy completed simvastatin (ZOCOR) 40 mg tablet Therapy completed nystatin (MYCOSTATIN) 100,000 unit/mL suspension Therapy completed IMPRESSIONS/PLAN 1. Essential hypertension, benign 2. FOREIGN on CPAP Overall, stable from a cardiac standpoint. Blood pressure heart rate are controlled. Euvolemic on examination. No anginal symptoms. Continue current cardiac medications. If she needs surgical clearance over the next year she will be low risk, non prohibitive. All questions and concerns addressed to the patient's satisfaction. Follow-up in 12 months or sooner if needed. This note was created with the assistance of a speech recognition program. While intending to generate a timely document that accurately reflects the content of the visit, no guarantee can be provided that every grammatical or spelling mistake has been or will be identified or corrected. Thank you for your understanding! TODAYS ORDERS No orders of the defined types were placed in this encounter. FOLLOW UP Return in about 1 year (around 06/18/2025). PCP: LAMONT Barker Referring Physician: Yony Bee APRN-LORENA [address] [place] [id number] documented in this encounter [facility] 06-15-2024 Miscellaneous Notes Called patient to remind them to bring their most current copy of their medication list with them to their appt. Patient verbalizes understanding. documented in this encounter [facility] 06-15-2024 Telephone encounter Note Called patient to remind them to bring their most current copy of their medication list with them to their appt. Patient verbalizes understanding. [facility] 06-13-2024 Miscellaneous Notes LMOM letting pt know that her ins is OON for PPC for her appt on 06/18. YAMILAN 06-13-24 documented in this encounter [facility] 06-13-2024 Telephone encounter Note LMOM letting pt know that her ins is OON for PPC for her appt on 06/18. [facility] 06-13-24 [facility] 05-10-2024 History and physi john note [facility] 05-10-2024 Procedure note [facility] 04-23-2024 Evaluation note Diagnosis Onset Date Resolution Abdominal pain acute April 012024 9:54am Dyspepsia acute April 23, 2024 9:54am GERD (gastroesophageal reflux disease) acute April 23, 2 025 9:54am Unexplained weight loss acute F ebruary 2024 9:54am [facility] Work Phone: 1(453) 573-986501-28-2025 History of Present illness Narrative* Alonzo Torrez MD - 03/27/2024 9:30 AM EST Images from the original note were not included. Chief Complaint: Hernia History of Present Illness: Madhavi Easton is a 58 y.o. female to the office due to concern for ventral hernia. She was told previously that she had an umbilical hernia. She reports periumbilical abdominal pain. She states thatthis pain is there when she wakes up in the morning. It was exacerbated by food intake. When she drinks Sprite it relieves her pain. The pain is sometimes relieved with a bowel movement. Pain is associated with nausea. She was recently admitted to the hospital with gastroenteritis. She notes swelling of her abdomen. The pain is not exacerbated by movement, lifting, coughing or straining. She notes intermittent loose stools. Denies tobacco alcohol or NSAID use. Denies any GERD symptoms. Last colonoscopy was 5 years ago. She iss scheduled to see a sash clamp operator She was worried that these symptoms are caused by a hernia. HPI Review of Systems Constitutional: Negative for fever and chills. Respiratory: Negative for shortness of breath. Cardiovascular: Negative for chest pain and palpitations. Gastrointestinal: Positive for nausea and abdominal pain. Negative for vomiting. Genitourinary: Negative for dysuria and difficulty urinating. Skin: Negative for rash and wound. Allergic/Immunologic: Negative for immunocompromised state. Neurological: Negative for weakness and light-headedness. Hematological: Does not bruise/bleed easily. Psychiatric/Behavioral: Negative for behavioral problems and confusion. Past Medical History: Diagnosis Date Abnormal mammogram Acute leukemia ([facility]) 2014 in remission Anxiety Arthritis Asthma Breast injury Chronic kidney disease COPD (chronic obstructive pulmonary disease) ([facility]) Depression Diabetes mellitus type 2, controlled ([facility]) Dry mouth 05/16/2019 STATES DENTIST SAID ALL TEETH ARE FALLING OUT Dyslipidemia Endometrial cancer ([facility]) 04/05/1989 Epilepsy ([facility]) Essential hypertension, benign GERD (gastroesophageal reflux disease) IBS (irritable bowel syndrome) Kidney stones Migraines Nosebleed Obesity Other cirrhosis of liver ([facility]) 03/19/2021 Ovarian cancer ([facility]) 2021 Nomore cancer now Pneumonia PONV (postoperative nausea and vomiting) Sinusitis, chronic Sleep apnea CPAP Thrombocytopenia ([facility]) Visual impairment Past Surgical History: Procedure Laterality Date AUGMENTATION VERTEBRAL KYPHOPLASTY SPINE T12; L1; L3 N/A 11/24/2021 Performed by Matthew Messer Jr., MD at [facility] CHOLECYSTECTOMY DAVINCI HYSTERECTOMY / BSO left SENTINAL LYMPH NODE DISSECTION, right pelvic node disection and pelvic washings Bilateral 10/04/2019 Performed by Oscar Marks MD at [facility] DILATION AND CURETTAGE OF UTERUS 2019 EGD N/A 05/14/2019 Performed by Jerardo Romo DO at [facility] HYSTERECTOMY 10/04/2019 INJECTION MEDIAL BRANCH NERVE BLOCK Bilateral C 04/02 05/01 Bilateral 02/02/2019 Performed by Som Mcgee MD at [facility] KNEE ARTHROSCOPY Right OOPHORECTOMY 1989 50% OF 1 OVARY REMOVED SHOULDER ARTHROSCOPY Left 06/2008 TONSILLECTOMY child Allergies Allergen Reactions Alogliptin Anaphylaxis Alogliptin Benzoate Anaphylaxis Amoxicillin Swelling Throat swelling Amoxicillin Trihydrate Anaphylaxis Augmentin [Amoxicillin-Pot Clavulanate] Swelling THROAT AND TONGUE SWELLING Clavulanic Acid Anaphylaxis Loratadine Swelling THROAT AND TONGUE SWELLING Motrin [Ibuprofen] Other (See Comments) COAGULATION DISORDER Potassium Clavulanate Anaphylaxis [place] Hives Jardiance [Empagliflozin] Nausea And Vomiting Albuterol Headache Current Outpatient Medications: glipiZIDE (GLUCOTROL) 5 mg tablet, Take 1 tablet (5 mg total) by mouth in the morning and 1 tablet (5 mg total) in the evening. Take before meals. Indications: type 2 diabetes mellitus., Disp: , Rfl: insulin glargine (LANTUS) 100 unit/mL injection, Inject under the skin nightly., Disp: , Rfl: lisinopril (PRINIVIL,ZESTRIL) 10 mg tablet, Take 1 tablet (10 mg total) by mouth in the morning. Indications: high blood pressure., Disp: , Rfl: 0 loperamide (IMODIUM) 2 mg capsule, take 1 capsule by mouth four times a day if needed for diarrhea,Disp: 30 capsule, Rfl: 0 meclizine (ANTIVERT) 25 mg tablet, Chew 0.5 tablets (12.5 mg total) and swallow 3 (three) times a day as needed for dizziness., Disp: , Rfl: metFORMIN (GLUCOPHAGE) 500 mg tablet, Take 2 tablets (1,000 mg total) by mouth in the morning and 2tablets (1,000 mg total) in the evening. Take with meals. Indications: type 2 diabetes mellitus., Disp: , Rfl: naloxone (NARCAN) 4 mg/actuation spray,non-aerosol nasal spray, Administer 1 spray (4 mg total) into alternating nostrils as needed for opioid reversal., Disp: 1 each, Rfl: 0 omeprazole (PriLOSEC) 40 mg capsule, take 1 capsule by mouth once daily, Disp: 30 capsule, Rfl: 10 REXULTI 1 mg tablet, Take 1 tablet (1 mg total) by mouth., Disp: , Rfl: simvastatin (ZOCOR) 40 mg tablet, Take 1 tablet (40 mg total) by mouth nightly Indications: high cholesterol., Disp: , Rfl: traZODone (DESYREL) 50 mg tablet, Take 1 tablet (50 mg total) by mouth nightly as needed for sleep., Disp: , Rfl: ondansetron (ZOFRAN) 4 mg tablet, Take 1 tablet (4 mg total) by mouth every 8 (eight) hours as needed for nausea or vomiting for up to 12 doses. (Patient not taking: Reported on 03/27/2024), Disp: 12 tablet, Rfl: 0 polyethylene glycol (GLYCOLAX) 17 gram/dose powder, Take 17 g by mouth 2 (two) times a day. (Patient not taking: Reported on 03/27/2024), Disp: 527 g, Rfl: 3 spironolactone (ALDACTONE) 50 mg tablet, take 1 tablet by mouth once daily (Patient not taking: Reported on 03/27/2024), Disp: 90 tablet, Rfl: 0 VITAMIN D2 1,250 mcg (50,000 unit) capsule, Take 1 capsule (50,000 Units total) by mouth once a week. (Patient not taking: Reported on 03/27/2024), Disp: , Rfl: No current facility-administered medications for this visit. Facility-Administered Medications Ordered in Other Visits: sodium chloride 0.9 % flush 10 mL, 10 mL, intravenous, PRN, Phoenix Kemp MD (Kenny), 10 mL at 05/15/21 0920 Social History Socioeconomic History Marital status: Spouse name: Not on file Number of children: Not on file Years of education: Not on file Highest education level: 12th grade Occupational History Not on file Tobacco Use Smoking status: Never Smokeless tobacco: Never Vaping Use Vaping status: Never Used Substance and Sexual Activity Alcohol use: No Drug use: No Sexual activity: Defer Other Topics Concern Caffeine Use No Social History Narrative Not on file Social Drivers of Health Financial Resource Strain: Low Risk (03/07/2022) Overall Financial Resource Strain (CARDIA) Difficulty of Paying Living Expenses: Not hard at all Food Insecurity: No Food Insecurity (03/09/2024) Hunger Screening Food Insecurity - Worry: Never True Food Insecurity - Inability: Never True Transportation Needs: No Transportation Needs (03/09/2024) PRAPARE - Transportation Lack of Transportation (Medical): No Lack of Transportation (Non-Medical): No Physical Activity: Sufficiently Active (03/07/2022) Exercise Vital Sign Days of Exercise per Week: 7 days Minutes of Exercise per Session: 40 min Stress: Stress Concern Present (03/07/2022) [employer] [employer] - Occupational Stress Questionnaire Feeling of Stress : Very much Social Connections: Socially Isolated (03/07/2022) Social Connection and Isolation Panel [NHANES] Frequency of Communication with Friends and Family: Three times a week Frequency of Social Gatherings with Friends and Family: Twice a week Attends Christian Services: Never Active Member of Clubs or Organizations: No Attends Club or Organization Meetings: Never Marital Status: Interpersonal Safety: Not At Risk (03/09/2024) Humiliation, Afraid, Rape, and Kick questionnaire Fear of Current or Ex-Partner: No Emotionally Abused: No Physically Abused: No Sexually Abused: No Housing Instability: Low Risk (03/09/2024) Housing Instability Housing Instability: No Family History Adopted: Yes Problem Relation Age of Onset Stroke Father Heart disease Father COPD Father Diabetes Father Ovarian cancer Sister Uterine cancer Daughter 29 Endometrial cancer Daughter Ovarian cancer Daughter Cystic fibrosis Son Anesthesia problems Neg Hx Breast cancer Neg Hx Physical Exam Vitals reviewed. Constitutional: Appearance: Normal appearance. She is obese. HENT: Head: Normocephalic and atraumatic. Eyes: Pupils: Pupils are equal, round, and reactive to light. Cardiovascular: Rate and Rhythm: Normal rate. Pulmonary: Effort: Pulmonary effort is normal. Abdominal: General: There is no distension. Palpations: Abdomen is soft. Tenderness: There is no abdominal tenderness. Hernia: No hernia is present. Comments: [place] No hernia appreciated on exam Musculoskeletal: General: No swelling. Skin: General: Skin is warm and dry. Neurological: Mental Status: She is alert and oriented to person, place, and time. Mental status is at baseline. Psychiatric: Mood and Affect: Mood normal. Behavior: Behavior normal. Vital Signs: Height 165.1 cm (5' 5 ), weight 76.7 kg (169 lb), last menstrual period 09/18/2019, not currently . Respiratory Source: No data recorded Admission Weight: Weight: 76.7 kg (169 lb) Labs: Lab Results Component Value Date WBC 4.8 03/09/2024 HGB 13.9 03/09/2024 HCT 40.2 03/09/2024 MCV 93 03/09/2024 PLT 85 (L) 03/09/2024 Lab Results Component Value Date GLU 318 (H) 03/09/2024 CALCIUM 8.5 03/09/2024 K 3.7 03/09/2024 CO2 26 03/09/2024 CL 104 03/09/2024 BUN 15 03/09/2024 CREATININE 0.71 03/09/2024 No results found for: AMYLASE Lab Results Component Value Date LIPASE 26 03/08/2024 Lab Results Component Value Date ALT 28 03/09/2024 AST 29 03/09/2024 ALKPHOS 57 03/09/2024 Lab Results Component Value Date INR 1.3 (H) 11/21/2021 INR 1.2 10/31/2019 PROTIME 14.4 (H) 11/21/2021 PROTIME 13.1 (H) 10/31/2019 Imaging: CT abdomen and pelvis with contrast CT ABDOMEN AND PELVIS W CONT CLINICAL HISTORY:Bowel obstruction suspected; history of umbilical hernia concern for obstruction COMPARISON: None. TECHNIQUE: CT abdomen and pelvis was performed utilizing the standard protocol following the uneventful administration of 100 cc Omnipaque 300 nonionic intravenous contrast. Coronal and sagittal reformatted images were generated and reviewed. Automated exposure control was utilized. FINDINGS: No acute findings lower thorax. Hepatomegaly with subtle morphologic features of chronic hepatocellular disease. Splenmegaly, 18 cm. Cholecystectomy. No acute appearing occlusion the major visceral vasculature. Normal adrenal glands. Pancreatic parenchymal volume loss without peripancreatic inflammatory change.No renal collecting system dilatation. Grossly unremarkable kidneys. Hysterectomy. No substantial dilatation or wall thickening the bowel. Borderline small bowel loops in the left upper quadrant of the abdomen without high-grade transition point. [id number] colonic stool burden. Nonvisualized appendix. No pericecal inflammatory change. No acute appearing occlusion the major visceral vasculature. Multilevel cement augmentation, T12, L1, L3. Levoconvex lumbar curvature. No aggressive osseous lesions. IMPRESSION: 1. No convincing features to suggest bowel obstruction. Borderline dilated left abdominal small bowel loops without high-grade transition point. If there is persistent concern for obstruction, consider Gastrografin challenge. 2. Hepatosplenomegaly, morphologic features of chronic hepatocellular disease. All CT scans at this facility use dose modulation, iterative reconstruction, and/or weight based dosing when appropriate to reduce radiation dose to as low as reasonably achievable. Finalized by Zack Jaquez MD on 03/08/2024 2:02 PM Assessment: Madhavi Easton is a 58 y.o.female with periumbilical abdominal pain, nausea, change in bowel habits. Concern for hernia due to being told that she had 1. I reviewed her last CT abdomen and pelvis, I do not see any hernia. I do not see any hernia on exam. No primary diagnosis found. Plan: Pain likely GI related rather than due to abdominal wall hernia. She already has appointment with Gastroenterology. Follow up with me as needed Evaluation included: Preparing to see the patient (e.g., review of tests) Obtaining and/or reviewing separately obtained history Performing a medically appropriate examination and/or evaluation Counseling and educating the patient/family/caregiver Referring and communicating with other health care trainer Alonzo Torrez MD [facility] [place] [facility] History of Present illness Narrative* Lesley Gaffney RN - 02/07/2024 11:34 AM EST Pt at lab, needs update MAGNETIC OBSERVER lab for upcoming CTA cors 02/14/24. Pt had prev. MAGNETIC OBSERVER done 12/22/23. [facility] NoteCT CHEST W CONT PROCEDURE: CT CHEST WITH CONTRAST CLINICAL INDICATION: . Endometrial cancer determined by uterine biopsy (CMS- HCC); Other cirrhosis of liver (CMS-HCC); Thrombocytopenia (CMS-HCC); Endometrial carcinoma (CMS-HCC); Hepatosplenomegaly. COMPARISON: And 17/06/2021 TECHNIQUE: CT was performed of the chest using 100 mL Omnipaque 300 intravenous contrast, without complication. Coronal & sagittal MPR images were generated and reviewed. FINDINGS: No acute findings at the thoracic inlet, body wall. Morphologic features of chronic hepatocellular disease. Splenomegaly. No aggressive osseous lesions. Cement augmentation upper lumbar spine. Nonenlarged heart. No significant calcified coronary arterial disease. Small pericardial effusion. No acute aortic pathology.. 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 No pneumothorax or pleural effusion. No suspicious pulmonary parenchymal opacity. IMPRESSION: 1. No metastatic disease to the thorax.. All CT scans at this facility use dose modulation, iterative reconstruction, and/or weight based dosing when appropriate to reduce radiation dose to as low as reasonably achievable. Finalized by Zack Jaquez MD on 12/22/2023 9:17 [facility] 12-16-2023 Miscellaneous Notes* Telephone Encounter - Elvia Pappas RN - 12/16/2023 1:48 PM EDT Patient was seen in office today w/[facility]C. CTA cors ordered. No BB needed d/t already adequate HR. All instructions reviewed w/patient and lab slip and copy of instruction sheet given to patient forreference. Patient vu of all instructions. Patient has hx of chronic kidney disease and patient said that this is managed by her PCP. [employer] called PCP but there are no providers in office. Office staff will message physician asking about clearance. Clearance request letter created and faxed to PCP @ [phone] Patient notes that the only days she cannot go for testing is Wednesdays. [facility] Telephone encounter Note* Telephone Encounter - Elvia Pappas RN - 12/16/2023 1:48 PM EDT Patient was seen in office today w/[facility]C. CTA cors ordered. No BB needed d/t already adequate HR. All instructions reviewed w/patient and lab slip and copy of instruction sheet given to patient forreference. Patient vu of all instructions. Patient has hx of chronic kidney disease and patient said that this is managed by her PCP. [employer] called PCP but there are no providers in office. Office staff will message physician asking about clearance. Clearance request letter created and faxed to PCP @ [phone] Patient notes that the only days she cannot go for testing is Wednesdays. [facility] History of Present illness Narrative* Som Valenzuela MD - 12/16/2023 1:15 PM EDT Images from the original note were not included. [facility] [address] [place], [place] [id number] Reason for visit: Follow-up hypertension, chest discomfort History of present illness: The patient was last seen in the office on December 16, [address] Pettit. I reviewed the note from that encounter. Specifically it was a new patient visit due to chest discomfort. At that time a stress test and echocardiogram were ordered. These tests were not performed until August of this year. The results are noted below. Today she tells continues to have pressure in her chest. She states she awoke with discomfort toady. She states discomfort resolves with laying down. The chest discomfort can occur with laundry up stairs or mopping floor. She also has exertional dyspnea. She tells me that when she did stress test she had dyspnea and felt like I was going to collapse. She did have chest discomfort as well. Allergies Allergen Reactions Alogliptin Anaphylaxis Alogliptin Benzoate Anaphylaxis Amoxicillin Swelling Throat swelling Amoxicillin Trihydrate Anaphylaxis Augmentin [Amoxicillin-Pot Clavulanate] Swelling THROAT AND TONGUE SWELLING Clavulanic Acid Anaphylaxis Loratadine Swelling THROAT AND TONGUE SWELLING Motrin [Ibuprofen] Other (See Comments) COAGULATION DISORDER Potassium Clavulanate Anaphylaxis [place] Hives Jardiance [Empagliflozin] Nausea And Vomiting Albuterol Headache Current Outpatient Medications Medication Sig Dispense Refill albuterol (PROVENTIL HFA;VENTOLIN HFA) 90 mcg/actuation inhaler Inhale 2 puffs every 6 (six) hours as needed for wheezing. 18 g 11 albuterol (PROVENTIL,VENTOLIN) 2.5 mg /3 mL (0.083 %) nebulizer solution inhale contents of 1 vial ( 3 milliliters ) in nebulizer by mouth and INTO THE LUNGS four times a day if needed for wheezing 360 mL 1 ALPRAZolam (XANAX) 0.25 mg tablet take 1 tablet by mouth nightly if needed for anxiety 30 tablet 2 amitriptyline (ELAVIL) 25 mg tablet Take 3 tablets (75 mg total) by mouth nightly Indications: migraine prevention. Takes three tablets budesonide-formoteroL (SYMBICORT) 160-4.5 mcg/actuation inhaler Inhale 2 puffs 2 (two) times a day.10.2 g 10 dicyclomine (BENTYL) 20 mg tablet docusate sodium (COLACE) 100 mg capsule Take 1 capsule (100 mg total) by mouth in the morning. 30 capsule 11 EASY TOUCH TWIST LANCETS 30 gauge misc glipiZIDE (GLUCOTROL) 5 mg tablet Take 1 tablet (5 mg total) by mouth in the morning and 1 tablet (5 mg total) in the evening. Take before meals. Indications: type 2 diabetes mellitus. insulin aspart U-100 (NovoLOG) 100 unit/mL (3 mL) insulin pen INJECT 8-10-12 UNITS SUBCUTANEOUSLY BEFORE MEALS PLUS ISS #2 (EXPECT UP TO 40 UNITS DAILY) insulin glargine,hum.rec.anlog (LANTUS U-100 INSULIN SUBQ) Inject 35 Units under the skin once daily at bedtime. lidocaine (LIDODERM) 5 % Place 1 patch on the skin in the morning. Remove & Discard patch within 12 hours or as directed by MD. 30 patch 0 lisinopril (PRINIVIL,ZESTRIL) 10 mg tablet Take 1 tablet (10 mg total) by mouth in the morning. Indications: high blood pressure. 0 loperamide (IMODIUM) 2 mg capsule take 1 capsule by mouth four times a day if needed for diarrhea 30 capsule 0 meclizine (ANTIVERT) 25 mg tablet Chew 0.5 tablets (12.5 mg total) and swallow 3 (three) times a day as needed for dizziness. meloxicam (MOBIC) 15 mg tablet Take 1 tablet (15 mg total) by mouth in the morning. metFORMIN (GLUCOPHAGE) 500 mg tablet Take 2 tablets (1,000 mg total) by mouth daily with breakfast Indications: type 2 diabetes mellitus. naloxone (NARCAN) 4 mg/actuation spray,non-aerosol nasal spray Administer 1 spray (4 mg total) intoalternating nostrils as needed for opioid reversal. 1 each 0 omeprazole (PriLOSEC) 40 mg capsule take 1 capsule by mouth once daily 30 capsule 10 phenazopyridine (PYRIDIUM) 200 mg tablet Take 1 tablet (200 mg total) by mouth 3 (three) times a day. polyethylene glycol (GLYCOLAX) 17 gram/dose powder Take 17 g by mouth 2 (two) times a day. 527 g 3 primidone (MYSOLINE) 50 mg tablet Take 1 tablet (50 mg total) by mouth in the morning. Indications:a type of seizure called a focal seizure. Take 1/2 to 1 tab by mouth at bedtime. prochlorperazine (COMPAZINE) 10 mg tablet take 1 tablet by mouth every 6 hours if needed for nauseaor vomiting 60 tablet 2 simvastatin (ZOCOR) 40 mg tablet Take 1 tablet (40 mg total) by mouth nightly Indications: high cholesterol. spironolactone (ALDACTONE) 50 mg tablet take 1 tablet by mouth once daily 90 tablet 0 UNIFINE PENTIPS PLUS 31 gauge x 3/16 needle VITAMIN D2 1,250 mcg (50,000 unit) capsule Take 1 capsule (50,000 Units total) by mouth once a week. No current facility-administered medications for this visit. Facility-Administered Medications Ordered in Other Visits Medication Dose Route Frequency Provider Last Rate Last Admin sodium chloride 0.9 % flush 10 mL 10 mL intravenous MARCELLUS Kemp MD (Kenny) 10 mL at 05/15/21 0920 Past Medical History: Diagnosis Date Abnormal mammogram Acute leukemia ([facility]) 2014 in remission Anxiety Arthritis Asthma Breast injury Chronic kidney disease COPD (chronic obstructive pulmonary disease) ([facility]) Depression Diabetes mellitus type 2, controlled ([facility]) Dry mouth 05/16/2019 STATES DENTIST SAID ALL TEETH ARE FALLING OUT Dyslipidemia Endometrial cancer ([facility]) 04/05/1989 Epilepsy ([facility]) Essential hypertension, benign GERD (gastroesophageal reflux disease) IBS (irritable bowel syndrome) Kidney stones Migraines Nosebleed Obesity Other cirrhosis of liver ([facility]) 03/19/2021 Ovarian cancer ([facility]) 2021 Nomore cancer now Pneumonia PONV (postoperative nausea and vomiting) Sinusitis, chronic Sleep apnea CPAP Thrombocytopenia ([facility]) Visual impairment Past Surgical History: Procedure Laterality Date AUGMENTATION VERTEBRAL KYPHOPLASTY SPINE T12; L1; L3 N/A 11/24/2021 Performed by Matthew Messer Jr., MD at [facility] CHOLECYSTECTOMY DAVINCI HYSTERECTOMY / BSO left SENTINAL LYMPH NODE DISSECTION, right pelvic node disection and pelvic washings Bilateral 10/04/2019 Performed by Oscar Marks MD at [facility] DILATION AND CURETTAGE OF UTERUS 2019 EGD N/A 05/14/2019 Performed by Jerardo Romo DO at [facility] HYSTERECTOMY 10/04/2019 INJECTION MEDIAL BRANCH NERVE BLOCK Bilateral C 2/3 3/4 Bilateral 02/02/2019 Performed by Som Mcgee MD at [facility] ARTHROSCOPY Right OOPHORECTOMY 1989 50% OF 1 OVARY REMOVED SHOULDER ARTHROSCOPY Left 06/2008 TONSILLECTOMY child Social History Socioeconomic History Marital status: Legally Spouse name: Not on file Number of children: Not on file Years of education: Not on file Highest education level: 12th grade Occupational History Not on file Tobacco Use Smoking status: Never Smokeless tobacco: Never Vaping Use Vaping status: Never Used Substance and Sexual Activity Alcohol use: No Drug use: No Sexual activity: Defer Other Topics Concern Caffeine Use No Social History Narrative Not on file Social Drivers of Health Financial Resource Strain: Low Risk (03/07/2022) Overall Financial Resource Strain (CARDIA) Difficulty of Paying Living Expenses: Not hard at all Food Insecurity: No Food Insecurity (12/16/2023) Hunger Screening Food Insecurity - Worry: Never True Food Insecurity - Inability: Never True Transportation Needs: No Transportation Needs (03/07/2022) PRAPARE - Transportation Lack of Transportation (Medical): No Lack of Transportation (Non-Medical): No Physical Activity: Sufficiently Active (03/07/2022) Exercise Vital Sign Days of Exercise per Week: 7 days Minutes of Exercise per Session: 40 min Stress: Stress Concern Present (03/07/2022) [employer] [employer] - Occupational Stress Questionnaire Feeling of Stress : Very much Social Connections: Socially Isolated (03/07/2022) Social Connection and Isolation Panel [NHANES] Frequency of Communication with Friends and Family: Three times a week Frequency of Social Gatherings with Friends and Family: Twice a week Attends Christian Services: Never Active Member of Clubs or Organizations: No Attends Club or Organization Meetings: Never Marital Status: Interpersonal Safety: Unknown (04/21/2023) Received from [facility] Safety & Environment Fear of Current or Ex-Partner: Not on file Emotionally Abused: Not on file Physically Abused: Not on file Sexually Abused: Not on file Physically or Sexually Abused: Not on file Housing Instability: Not on file Family History Adopted: Yes Problem Relation Age of Onset Stroke Father Heart disease Father COPD Father Diabetes Father Ovarian cancer Sister Uterine cancer Daughter 29 Endometrial cancer Daughter Ovarian cancer Daughter Cystic fibrosis Son Anesthesia problems Neg Hx Breast cancer Neg Hx Review of Systems Constitutional: Negative for malaise/fatigue. HENT: Negative for nosebleeds. Cardiovascular: Positive for chest pain and dyspnea on exertion. Negative for claudication, leg swelling, palpitations and syncope. Respiratory: Negative for hemoptysis. Hematologic/Lymphatic: Does not bruise/bleed easily. Musculoskeletal: Negative for myalgias. Gastrointestinal: Negative for hematemesis and hematochezia. Genitourinary: Negative for hematuria. Neurological: Negative for dizziness. Vitals: 12/16/23 1258 BP: 132/80 Pulse: 62 SpO2: 98% Physical Exam Constitutional: Appearance: Normal appearance. She is well-developed. Neck: Vascular: No JVD. Cardiovascular: Heart sounds: S1 normal and S2 normal. No murmur heard. Pulmonary: Breath sounds: Normal breath sounds. No rales. Neurological: General: No focal deficit present. Mental Status: She is alert and oriented to person, place, and time. Psychiatric: Mood and Affect: Mood normal. Behavior: Behavior normal. 09/07/2023 Echo: EF 60-65%, tr-mild MR 09/07/2023 Stress (routine): 4:00 Rakan, only achieved 74% maximal predicted heart rate, no ECG changes noted, intermediate risk study with DTS neagtive 4 03/23/2023 chol 193, HDL 27, LDL 135, trigs 156, HgB 14.8, cr 0.86, GFR 79 Encounter Diagnoses Name Primary? Chest pain, unspecified type Yes Abnormal stress test Essential hypertension, benign Shortness of breath PLAN: 1. Given the patient's symptoms, as well as her abnormal stress test, I spoke to her about performing a coronary artery CTA. She is agreeable to this. In preparation for the coronary artery CTA serum creatinine level will be obtained Notably her resting heart rate today is 62 beats per minute, therefore she does not require any additional beta-blockade for the CTA 2. She will otherwise continue her current medications 3. Follow-up will be based upon results of the coronary artery CTA. Som Valenzuela Jr, MD documented in this [facility]10-17-2024 Miscellaneous Notes* Telephone Encounter - Marlee Voss CMA - 12/15/2023 8:43 AM EDT Left message for patient to remind them to bring their most current medication list with them to their appointment. [facility] Telephone encounter Note* Telephone Encounter - Marlee Voss CMA - 12/15/2023 8:43 AM EDT Left message for patient to remind them to bring their most current medication list with them to their appointment. [facility] Miscellaneous Notes* Telephone Encounter - Marlee Voss CMA - 10/05/2023 10:16 AM EDT Left message for patient to remind them to bring their most current medication list with them to their appointment. documented in [facility] Telephone encounter Note* Telephone Encounter - Marlee Voss CMA - 10/05/2023 10:16 AM EDT Left message for patient to remind them to bring their most current medication list with them to their appointment. [facility] History of Present illness Narrative* Sonia Leonard RN - 09/23/2023 9:06 AM EDT The patient is here for 1 year surveillance care for thrombocytopenia and lymphocytosis The patient remains stable, Dr Galloway recommends the following: CT C/A/P in 2-3 weeks. F/u in 03/2024, CBC, CMP, Orders and calendar given to patient, patient verbalized understanding of instructions given documented in this encounterSt[facility]07-[facility] History of Present illness Narrative* Divya Galloway MD - 09/23/2023 9:00 AM EDT Images from the original note were not included. 09/23/23 Madhavi Easton is a 57 y.o. year [...] MMR intact. She is s/p 6 cycles iliamna doublet therapy. Interval history: The patient was diagnosed with stage III endometrial carcinoma in September 2019, finished adjuvant chemotherapy. She complains about roughly around 15 lb of weight loss over the past few months. Appetite is fair sometimes she is feeling very No significant bleedings. No recent infections. Her twin sister has liver cirrhosis. Her biological younger sister was diagnosed with acute leukemia Overall she is doing well over the past year no evidence of easy bruising or significant bleeding. No significant abdominal pain or bloating sensation. Past Medical History: Diagnosis Date Abnormal mammogram Acute leukemia ([facility]) 2014 in remission Anxiety Arthritis Asthma Breast injury Chronic kidney disease COPD (chronic obstructive pulmonary disease) ([facility]) Depression Diabetes mellitus type 2, controlled ([facility]) Dry mouth 05/16/2019 STATES DENTIST SAID ALL TEETH ARE FALLING OUT Endometrial cancer ([facility]) 04/05/1989 Epilepsy ([facility]) GERD (gastroesophageal reflux disease) Heart murmur Hyperlipidemia Hypertension IBS (irritable bowel syndrome) Kidney stones Migraines Nosebleed Obesity Other cirrhosis of liver ([facility]) 03/19/2021 Ovarian cancer ([facility]) 2021 Nomore cancer now Pneumonia PONV (postoperative nausea and vomiting) Sinusitis, chronic Sleep apnea CPAP Thrombocytopenia ([facility]) Visual impairment Past Surgical History: Procedure Laterality Date AUGMENTATION VERTEBRAL KYPHOPLASTY SPINE T12; L1; L3 N/A 11/24/2021 Performed by Matthew Messer Jr., MD at [facility] CHOLECYSTECTOMY DAVINCI HYSTERECTOMY / BSO left SENTINAL LYMPH NODE DISSECTION, right pelvic node disection and pelvic washings Bilateral 10/04/2019 Performed by Oscar Marks MD at [facility] DILATION AND CURETTAGE OF UTERUS 2019 EGD N/A 05/14/2019 Performed by Jerardo Romo DO at [facility] HYSTERECTOMY 10/04/2019 INJECTION MEDIAL BRANCH NERVE BLOCK Bilateral C 2/3 3/4 Bilateral 02/02/2019 Performed by Som Mcgee MD at [facility] ARTHROSCOPY Right OOPHORECTOMY 1989 50% OF [...] Social History Socioeconomic History Marital status: Legally Highest education level: 12th grade Tobacco Use Smoking status: Never Smokeless tobacco: Never Vaping Use Vaping status: Never Used Substance and Sexual Activity Alcohol use: No Drug use: No Sexual activity: Defer Other Topics Concern Caffeine Use No Social Determinants of Health Financial Resource Strain: Low Risk (03/07/2022) Overall Financial Resource Strain (CARDIA) Difficulty of Paying Living Expenses: Not hard at all Food Insecurity: No Food Insecurity (09/23/2023) Hunger Screening Food Insecurity - Worry: Never True Food Insecurity - Inability: Never True Transportation Needs: No Transportation Needs (03/07/2022) PRAPARE - Transportation Lack of Transportation (Medical): No Lack of Transportation (Non-Medical): No Physical Activity: Sufficiently Active (03/07/2022) Exercise Vital Sign Days of Exercise per Week: 7 days Minutes of Exercise per Session: 40 min Stress: Stress Concern Present (03/07/2022) [place] [employer] - Occupational Stress Questionnaire Feeling of Stress : Very much Social Connections: Socially Isolated (03/07/2022) Social Connection and Isolation Panel [NHANES] Frequency of Communication with Friends and Family: Three times a week Frequency of Social Gatherings with Friends and Family: Twice a week Attends Christian Services: Never Active Member of Clubs or Organizations: No Attends Club or Organization Meetings: Never Marital Status: Received from [facility] [place] Safety & Environment Allergies Allergen Reactions Alogliptin Anaphylaxis Alogliptin Benzoate Anaphylaxis Amoxicillin Swelling Throat swelling Amoxicillin Trihydrate Anaphylaxis Augmentin [Amoxicillin-Pot Clavulanate] Swelling THROAT AND TONGUE SWELLING Clavulanic Acid Anaphylaxis Loratadine Swelling THROAT AND TONGUE SWELLING Motrin [Ibuprofen] Other (See Comments) COAGULATION DISORDER Potassium Clavulanate Anaphylaxis [place] Hives Jardiance [Empagliflozin] Nausea And Vomiting Albuterol Headache Medication List Accurate as of September 23, 2023 9:24 AM. If you have any questions, ask [...] patient's insurance please point the Pt to [id number] 4% lidocaine patches Dose: 1 patch Signed by: Romero Campoverde 1 patch, transdermal, Daily, Remove & Discard patch [...] Refills: 0 Dose: 1 spray Signed by: Romero Campoverde 4 mg, alternating nares, As needed Commonly [...] female, Endometrial cancer determined by uterine biopsy ([facility]) Dose: 17 g Signed by: SERGO Yan [...] as other medications prescribed for you. Read thedirections carefully, and ask your doctor or other [...] in no acute distress. Vitals: BP (!) 117/93 Pulse 82 Temp 36.7 C (98 F) (Oral) Resp 18 Ht 165.1 cm (5' 5 ) Wt 76.2 kg (168 lb) LMP 09/18/2019 SpO2 99% BMI 27.96 kg/m Body mass index is 27.96 kg/m . Eyes: No icterus, no conjuctival [...] no unilateral weakness. Mood and affect: Normal. Breast exam: No palpable lesion bilaterally. Recent Imaging: No results found. Recent Labs: No results found for this or any previous visit (from the past 336 hour(s)). Diagnosis Problem list: Problem List Items Addressed This Visit Genitourinary Endometrial cancer determined by uterine biopsy ([facility]) - Primary Hematopoietic and Hemostatic Thrombocytopenia (CMS-HCC) Impression: Borderline thrombocytopenia Easy bruising likely due [...] significant change in her platelet count very Previous CT scan showed a cirrhotic appearance of the liver. Her last ultrasound of the liver was back in August 2021. I suspect her borderline thrombocytopenia is due to liver cirrhosis and hypersplenism. CT C/A/P in 2-3 weeks to rule out occult disease relapse due to significant weight loss. If CT scan is unremarkable, continue observation. Patient's platelet count is around 133 K, no other cytopenia. F/u in 03/2024, CBC, CMP, Thank you. Divya Galloway MD Please note that portions of this note were generated using voice recognition Values of n dictation software. Although every effort was made to ensure the accuracy of this automated neon technician, some errors in neon technician may have occurred. CC: Patient Care Team: Michelle Rebollar PA-C as PCP - General (Physician Student Ministries Director) Peter Smith DO as Consulting Physician (Psychiatry) Janette Stone DO as Referring Physician (Neurology) Divya Galloway MD as Consulting Physician (Hematology) SERGO Conway as Physician Student Ministries Director (Gynecologic Oncology) Oscar Marks MD as Referring Physician (Gynecologic Oncology) China Black BOOGIE as Genetic Counselor (Oncology) Lia Ramirez RN as Registered Nurse Matthew Messer Jr., MD as Surgeon (Orthopedic Surgery) PCP:MICHELLE REBOLLAR Referring MD: Michelle Rebollar PA-C documented in this encounterNationwide Children's HospitalSmartZip Analytics [id number] Instructions* Patient Instructions* Divya Galloway MD - 09/23/2023 9:[address] C/A/P in 2-3 weeks. F/u in 03/2024, CBC, CMP, documented in this encounterBrightlook HospitalQuorum [id number] Miscellaneous Notes* Telephone Encounter - Oxana Stafford RN - 09/12/2023 10:15 AM EDT Peer to peer for MOgenean 09/12/23 today at 3:[address] note ans stress faxed. Thank you!! ER [facility] TRACKING#[id number] DENIED. P2P EXPIRES EOD 09/16/23 P2P#[phone]; NO APPT NECESSARY DENIAL REASON: Prior to an approval, the following doctor's notes should be sent: a doctor's note with a reason why a heart test where you walk (Exercise Stress Test) without heart pictures cannot be done. SUBMITTED: ECHO, EKG, STRESS TEST RESULT, NUC STRESS ORDER, OV 12 16 22 & ED VISIT. * Telephone Encounter - SEUN oRmo - 09/12/2023 10:15 AM EDT This is being denied because the patient needs to be seen either in the office or through telehealth within 6 months of the test that is being requested. Also, they do not have the stress test results. The doctor could not upload this. Please re send. Thank you so much * Telephone Encounter - Oxana Stafford RN - 09/12/2023 10:15 AM EDT Called pt LM on answering machine to call back to make appt.slm documented in this encounterBrightlook HospitalQuorum [id number] Telephone encounter Note* Telephone Encounter - Oxana Stafford RN - 09/12/2023 10:15 AM EDT Peer to peer for MOgenean 09/12/23 today at 3:[address] note ans stress faxed. Thank you!! ER [facility] TRACKING#[id number] DENIED. P2P EXPIRES EOD 09/16/23 P2P#[phone]; NO APPT NECESSARY DENIAL REASON: Prior to an approval, the following doctor's notes should be sent: a doctor's note with a reason why a heart test where you walk (Exercise Stress Test) without heart pictures cannot be done. SUBMITTED: ECHO, EKG, STRESS TEST RESULT, NUC STRESS ORDER, OV 12 16 22 & ED VISIT. [employer]07-15-2024 Telephone encounter Note* Telephone Encounter - SEUN Romo - 09/12/2023 10:15 AM EDT This is being denied because the patient needs to be seen either in the office or through telehealth within 6 months of the test that is being requested. Also, they do not have the stress test results. The doctor could not upload this. Please re send. Thank you so much [employer] Work Phone: [phone] Telephone encounter Note* Telephone Encounter - Oxana Stafford RN - 09/12/2023 10:15 AM EDT Called pt LM on answering machine to call back to make appt.slm [employer]06-20-2024 Miscellaneous Notes* Telephone Encounter - Madhavi Cruz RN - 08/18/2023 11:37 AM EDT PER [facility] TRACKING#[id number] DENIED. P2P EXPIRES EOD 08/23/23 P2P # [phone]; NO APPT NECESSARY DENIAL REASON: Prior to an approval, the following doctor's notes should be sent: a doctor's note with a reason why a heart test where you walk (Exercise Stress Test) without heart pictures cannot be done. * Telephone Encounter - Madhavi Cruz RN - 08/18/2023 11:37 AM EDT [employer] called and spoke w/ Pt. Echo and Cardiolyte was ordered by Dr. HAWTHORNE 12/16/22. Hasn't been scheduled until 09/07/23. Pt states had other health issues and just now doing it. Chart reflects Endometrial cancer. [employer] called and spoke w/ KEARA- Insurance would like pt to have a regular treadmill first . Echo has been approved. Pt feels she can walk on a treadmill * Telephone Encounter - Gonsalo Pettit MD - 08/18/2023 11:37 AM EDT Yes that is fine. * Telephone Encounter - Madhavi Cruz RN - 08/18/2023 11:37 AM EDT CTME rescheduled to Reg TME. Pt aware. Precert notified documented in this encounterNationwide Children's HospitalData TV Networks06-20-2024 Telephone encounter Note* Telephone Encounter - Madhavi Cruz RN - 08/18/2023 11:37 AM EDT PER [facility] TRACKING#[id number] DENIED. P2P EXPIRES EOD 08/23/23 P2P # [phone]; NO APPT NECESSARY DENIAL REASON: Prior to an approval, the following doctor's notes should be sent: a doctor's note with a reason why a heart test where you walk (Exercise Stress Test) without heart pictures cannot be done. [facility] HospitalJosey Ellis [employer] [id number] Telephone encounter Note* Telephone Encounter - Madhavi Cruz RN - 08/18/2023 11:37 AM EDT [employer] called and spoke w/ Pt. Echo and Cardiolyte was ordered by Dr. HAWTHORNE 12/16/22. Hasn't been scheduled until 09/07/23. Pt states had other health issues and just now doing it. Chart reflects Endometrial cancer. [employer] called and spoke w/ KEARA- Insurance would like pt to have a regular treadmill first . Echo has been approved. Pt feels she can walk on a treadmill [employer]06-20-2024 Telephone encounter Note* Telephone Encounter - Gonsalo Pettit MD - 08/18/2023 11:37 AM EDT Yes that is fine. [employer] Work Phone: [phone]) 563-530306-20-2024 Telephone encounter Note* Telephone Encounter - Madhavi Cruz RN - 08/18/2023 11:37 AM EDT CTME rescheduled to Reg TME. Pt aware. Precert notified [employer]06-03-2024 Miscellaneous Notes* Telephone Encounter - Tish De La Fuente CMA - 08/01/2023 3:28 PM EDT Care Coordination Outreach performed to coordinate overdue appointments, testing, and/or follow-up care: Yes Audit/Outreach Date: August 01, 2023 Reason: DM A1C, DM Eye Exam, and Medicare Annual Wellness Visit Method: Telephone and MyChart Outreach Attempt: First Outcome: Left Message and letter sent Next PCP Appointment: N/A Tests/Referrals Pended: N/A Resources/Education Provided: Additional Comments: Unable to reach patient by telephone. Letter sent. documented in this encounterProMedica Health [id number] Telephone encounter Note* Telephone Encounter - Tish De La Fuente CMA - 08/01/2023 3:28 PM EDT Care Coordination Outreach performed to coordinate overdue appointments, testing, and/or follow-up care: Yes Audit/Outreach Date: August 01, 2023 Reason: DM A1C, DM Eye Exam, and Medicare Annual Wellness Visit Method: Telephone and MyChart Outreach Attempt: First Outcome: Left Message and letter sent Next PCP Appointment: N/A Tests/Referrals Pended: N/A Resources/Education Provided: Additional Comments: Unable to reach patient by telephone. Letter sent. [facility]02-15-2024 Miscellaneous Notes* Telephone Encounter - Marlee Voss CMA - 04/14/2023 3:12 PM EST Left message for patient to remind them to bring their most current medication list with them to their appointment. documented in [facility] encounterSt. [facility] Telephone encounter Note* Telephone Encounter - Marlee Voss CMA - 04/14/2023 3:12 PM EST Left message for patient to remind them to bring their most current medication list with them to their appointment. [facility]01-26-2024 History of Present illness Narrative* Donna Lewis RN - 03/25/2023 9:42 AM EST Patient is here for follow up with Dr. Galloway. Orders received for Abd ultrasound to monitor liver cirrhosis in 1-2 months. F/u in 6 months, CBC again. Patient given calendar, verbalized understanding of future appointments. documented in this encounterSt. [facility] Hospital01-[facility] History of Present illness Narrative* Divya Galloway MD - 03/25/2023 9:15 AM EST Images from the original note were not [...] MMR intact. She is s/p 6 cycles iliamna doublet therapy. Interval history: The patient was [...] History: Diagnosis Date Abnormal mammogram Acute leukemia ([facility]) 2014 in remission Anxiety Arthritis Asthma Breast injury Chronic kidney disease COPD (chronic obstructive pulmonary disease) ([facility]) Depression Diabetes mellitus type 2, controlled ([facility]) Dry mouth 05/16/2019 STATES DENTIST SAID ALL TEETH ARE FALLING OUT Endometrial cancer ([facility]) 04/05/1989 Epilepsy ([facility]) GERD (gastroesophageal reflux disease) Heart murmur Hyperlipidemia Hypertension IBS (irritable bowel syndrome) Kidney stones Migraines Nosebleed Obesity Other cirrhosis of liver ([facility]) 03/19/2021 Ovarian cancer ([facility]) 2021 Nomore cancer now Pneumonia PONV (postoperative nausea and vomiting) Sinusitis, chronic Sleep apnea CPAP Thrombocytopenia ([facility]) Visual impairment Past Surgical History: Procedure Laterality Date AUGMENTATION VERTEBRAL KYPHOPLASTY SPINE T12; L1; L3 N/A 11/24/2021 Performed by Matthew Messer Jr., MD at [facility] CHOLECYSTECTOMY DAVINCI HYSTERECTOMY / BSO left SENTINAL LYMPH NODE DISSECTION, right pelvic node disection and pelvic washings Bilateral 10/04/2019 Performed by Oscar Marks MD at [facility] DILATION AND CURETTAGE OF UTERUS 2019 EGD N/A 05/14/2019 Performed by Jerardo Romo DO at [facility] HYSTERECTOMY 10/04/2019 INJECTION MEDIAL BRANCH NERVE BLOCK Bilateral C 2/3 3/4 Bilateral 02/02/2019 Performed by Som Mcgee MD at [facility] PAIN KNEE ARTHROSCOPY Right OOPHORECTOMY 1989 50% OF [...] 40 min Stress: Stress Concern Present (03/07/2022) [employer] - Occupational Stress Questionnaire Feeling of Stress : Very much Social Connections: Socially Isolated (03/07/2022) Social Connection and Isolation Panel [NHANES] Frequency of Communication with Friends and Family: Three times a week Frequency of Social Gatherings with Friends and Family: Twice a week Attends Christian Services: Never Active Member of Clubs or [...] (See Comments) COAGULATION DISORDER Potassium Clavulanate Anaphylaxis [place] Hives Jardiance [Empagliflozin] Nausea And Vomiting Albuterol [...] patient's insurance please point the Pt to [id number] 4% lidocaine patches Dose: 1 patch Signed [...] Dose: 1 spray Signed by: Tani 4 , alternating nares, As needed Commonly known as: [...] female, Endometrial cancer determined by uterine biopsy ([facility]) Dose: 17 g Signed by: SERGO Yan [...] as other medications prescribed for you. Read thedirections carefully, and ask your doctor or other [...] 18 Ht 165.1 cm (5' 5 ) Wt81.2 kg (179 lb) LMP 09/18/2019 SpO2 99% [...] this note were generated using voice recognition M*Modal dictation software. Although every effort was made to ensure the accuracy of this automated neon technician, some errors in neon technician may have occurred. CC: Patient Care Team: Michelle Rebollar PA-C as PCP - General (Physician Student Ministries Director) Peter Smith DO as Consulting Physician (Psychiatry) Janette Stone DO as Referring Physician (Neurology) Divya Galloway MD as Consulting Physician (Hematology) SERGO Conway as Physician Student Ministries Director (Gynecologic Oncology) Oscar Marks MD as Referring Physician (Gynecologic Oncology) СЕРГЕЙ David as Genetic Counselor (Oncology) Lia Ramirez RN as Registered Nurse Matthew Messre Jr., MD as Surgeon (Orthopedic Surgery) PCP:MICHELLE REBOLLAR Referring MD: Michelle Rebollar PA-C documented in this encounterNationwide Children's HospitalMadison [facility]01-26-2024 Instructions* Patient Instructions* Divya Galloway MD - 03/25/2023 9:15 AM EST Abd ultrasound to monitor liver cirrhosis in 1-2 months. F/u in 6 months, CBC again. documented in this encounterNationwide Children's HospitalEmotive Communications [facility] [phone] Miscellaneous Notes* Telephone Encounter - Francine Rai - 03/17/2023 9:43 AM EST T/C to pt to reschedule her 03-25-23 PPC appt d/t BD sched change. No answer, unable to LMOM, LMOM for Christopher fuchs, Emergency contact, to have his mom call our office. documented in this encounterNationwide Children's HospitalEmotive Communications [facility] [id number] Telephone encounter Note* Telephone Encounter - Francine Rai - 03/17/2023 9:43 AM EST T/C to pt to reschedule her 03-25-23 PPC appt d/t BD sched change. No answer, unable to LMOM, LMOM for Christopher fuchs, Emergency contact, to have his mom call our office. [facility] [employer] [id number] NotePlastic surgery office note Date 02/15/2022 Patient Madhavi Kay Patient [...] for evaluation by the plastic surgeon in [place] who also could not perform her nasal [...] was examined in the presence of a roll trucker and the resident Vital signs stable, afebrile [...] significant findings and he complains are rather vague.[facility]05-18-2022 NotePROCEDURE: XR FOOT RT MIN 3 VIEWS, XR ANKLE RT MIN [...] Electronically authenticated by: CASSY JOHNSTON Date: 2021-07-15 14:31[facility]05-18-2022 NotePROCEDURE: XR FOOT RT MIN 3 VIEWS, XR ANKLE RT MIN [...] Electronically authenticated by: CASSY JOHNSTON Date: 2021-07-15 14:31[facility]05-18-2022 NotePROCEDURE: XR FOOT RT MIN 3 VIEWS, XR ANKLE RT MIN [...] Electronically authenticated by: CASSY JOHNSTON Date: 2021-07-15 14:31[facility]* Diagnosis Hepatomegaly Splenomegaly Thrombocytopenia (HCC) Thrombocytopenia, unspecified documented in this encounter [employer] Phone: evaluation note* Diagnosis Periumbilical abdominal pain- Primary Abdominal pain, periumbilic documented in this encounter [facility]* Diagnosis Endometrial cancer determined by uterine biopsy (CMS-HCC)- Primary Other cirrhosis of liver (CMS-HCC) Thrombocytopenia (CMS-HCC) Unspecified thrombocytopenia documented in this encounter [facility]* Diagnosis Thrombocytopenia (CMS-HCC)- Primary Unspecified thrombocytopenia Endometrial cancer determined by uterine biopsy (CMS-HCC) Other cirrhosis of liver (CMS-HCC) documented in this encounter [facility]* Diagnosis Chest pain, unspecified type- Primary documented in this encounter [facility]* Diagnosis Endometrial cancer determined by uterine biopsy (CMS-HCC)- Primary Thrombocytopenia (CMS-HCC) Unspecified thrombocytopenia documented in [facility] encounter [facility]* Diagnosis Endometrial cancer determined by uterine biopsy (CMS-HCC)- Primary Other cirrhosis of liver (CMS-HCC) Thrombocytopenia (CMS-HCC) Unspecified thrombocytopenia Endometrial carcinoma (CMS-HCC) Hepatosplenomegaly Other chronic nonalcoholic liver disease documented in this encounter [facility]* Diagnosis Chest pain, unspecified type- Primary Abnormal stress test Other nonspecific abnormal cardiovascular system function study Essential hypertension, benign Shortness of breath documented in this encounter [facility]* Diagnosis Abnormal stress test- Primary Other nonspecific abnormal cardiovascular system function study Chest pain, unspecified type documented in this encounter [facility] SystemEvaluation noteNo assessment information available [facility] Work Phone: Evaluation note* Diagnosis Essential hypertension, benign- Primary FOREIGN on CPAP documented in this encounter [facility]* Diagnosis Thrombocytopenia- Primary Unspecified thrombocytopenia documented in this encounter [facility]* Diagnosis Endometrial cancer determined by uterine biopsy ([facility])- Primary Thrombocytopenia Unspecified thrombocytopenia Other cirrhosis of liver ([facility]) Endometrial carcinoma ([facility]) Hepatosplenomegaly Other chronic nonalcoholic liver disease documented in this encounter [facility]* Diagnosis Vomiting, unspecified vomiting type, unspecified whether nausea present- Primary Periumbilical abdominal pain Abdominal pain, periumbilic Diarrhea, unspecified type Black stools Nonspecific abnormal finding in stool contents RLQ abdominal pain Abdominal pain, right lower quadrant documented in this encounter [facility] SystemHistory and physical note Author Pedro Russ [facility] Note Date/Time May 10, 2024 2:2 9pm [facility] [address] [place] [address] Gastroenterology H&P Signed Patient: Madhavi Easton MR#: [id number] : 1965 Acct:[id number] Age/Sex: 58 / F Adm Date: 5 Loc: Room: Type: [facility] Attending Dr: Pedro Russ MD Copies to: MD Lucia Remy APRN,ACCOUNT MANAGER B2B~ Date of Service: 05/10/2024 HISTORY & PHYSICAL: Patient's history with special attention to the cardiovascular, pulmonary systems and the current problem was reviewed with the patient immediately prior to the procedure. Present medications and doses reviewed in the EMR. Allergies and pertinent laboratory tests were also reviewedat this time in the EMR. The physical examination, as below, was then performed. Indication, assessment and HPI: 58-year-old female here for EGD for evaluation of GERD and epigastric pain. Family history of GI malignancy? No PHYSICAL EXAMINATION General appearance: NAD Skin: No jaundice Head: NC/AT Eyes: Anicteric Neck: Supple Lungs: Normal respiratory effort, no use of accessory muscles Abdomen: nondistended Neuro: Ox3. REVIEW OF SYSTEMS Constitutional: Denies malaise, fevers Cardiovascular: Denies chest pain, palpitations Respiratory: Denies shortness of breath, wheezing Gastrointestinal: As per HPI Genitourinary: Denies dysuria, polyuria Musculoskeletal: Denies joint swelling, joint stiffness Neurological: Denies confusion, numbness, tingling Endocrine: Denies fatigue Written informed consent obtained from the patient. Risks (including but not limited to perforation, infection, bloating, bleeding, need for emergent surgeryand loss of life), benefits and alternatives explained and questions answered. The patient verbalized understanding. Based on history patient is an appropriate candidate for the procedure. Pedro Russ M.D. Documented By: Pedro Russ MD 05/10/24 1345 Signed By: <Electronically signed by Pedro Russ MD> 05/10/24 [id number] [facility] Work Phone: InstructionsNot on filedocumented in this encounter [facility] SystemInstructionsNot on filedocumented in this encounter [facility] SystemInstructionsNot on filedocumented in this encounter [facility] SystemInstructionsNot on filedocumented in this encounter [facility] SystemInstructionsNot on filedocumented in this encounter [facility] SystemInstructionsNot on filedocumented in this encounter [facility] SystemInstructionsNot on filedocumented in this encounter [facility] SystemInstructionsNot on filedocumented in this encounter [facility] SystemInstructionsNot on filedocumented in this encounter [facility] SystemInstructionsNot on filedocumented in this encounter [facility] SystemInstructionsNot on filedocumented in this encounter [facility] SystemInstructionsNot on filedocumented in this encounter [facility] SystemInstructionsNot on filedocumented in this encounter [facility] SystemInstructionsNot on filedocumented in this encounter [facility] SystemInstructionsNot on filedocumented in this encounter [facility] SystemInstructionsNot on filedocumented in this encounter [facility] Summary Purpose Family History Relationship Condition Age at Onset Recorded Date/T alden father Malignant neoplasm Unknown sister Diabetes mellitus Unknown mother Heart disease Unknown Relationship Condition Age at Onset Recorded Date/T alden father Malignant neoplasm Unknown sister Diabetes mellitus Unknown Advance Directives Date Activated Date Inactivated Comments 03/08/2024 8:00 PM 03/09/2024 6:28 PM Date Activated Date Inactivated Comments 11/21/2021 8:16 AM 11/25/2021 7:32 PM Date Activated Date Inactivated Comments 10/04/2019 12:01 PM 10/05/2019 2:14 PM Latest Code Status on File Code Status Date Activated Date Inactivated Comments Full Code 11/21/2021 8:16 AM 11/25/2021 7:32 PM Code Status History Code Status Date Activated Date Inactivated Comments Full Code 10/04/2019 12:01 PM 10/05/2019 2:14 PM Date Activated Date Inactivated Comments 11/21/2021 8:16 AM 11/25/2021 7:32 PM Date Activated Date Inactivated Comments 10/04/2019 12:01 PM 10/05/2019 2:14 PM Date Activated Date Inactivated Comments 11/21/2021 8:16 AM 11/25/2021 7:32 PM Date Activated Date Inactivated Comments 10/04/2019 12:01 PM 10/05/2019 2:14 PM Advance Directive Response Recorded Date/ Time Advance Directives No March 20, 2024 12:17pm Advance Directive Response Recorded Date/ Time Advance Directives No March 20, 2024 1:17pm Date Activated Date Inactivated Comments 03/08/2024 8:00 PM 03/09/2024 6:28 PM Date Activated Date Inactivated Comments 11/21/2021 8:16 AM 11/25/2021 7:32 PM Date Activated Date Inactivated Comments 10/04/2019 12:01 PM 10/05/2019 2:14 PM Reason for Referral Specialty Diagnoses / Procedures Referred By Contac t Referred To Contact Diagnoses Chest pain, unspecified type Procedures Stress test (exercise only) Gonsalo Pettit MD [address] [place] [address] [facility] [address] [place] [address] Phone: [phone] Referral ID Status Reason Start Date Expiration Date V isits Requested Visits Authorized [id number] Pending Review 08/19/2023 08/18/2024 5 5 Specialty Diagnoses / Procedures Referred By Contac t Referred To Contact Radiology Diagnoses Endometrial cancer determined by uterine biopsy (CMS-HCC) Other cirrhosis of liver (CMS-HCC) Thrombocytopenia (CMS-HCC) Endometrial carcinoma (CMS-HCC) Hepatosplenomegaly Procedures CT abdomen and pelvis with contrast Divya Galloway MD [address] [place] [address] [address] [place] [id number] Referral ID Status Reason Start Date Expiration Date V isits Requested Visits Authorized [id number] Pending Review 09/23/2023 09/22/2024 1 1 Specialty Diagnoses / Procedures Referred By Contac t Referred To Contact Radiology Diagnoses Endometrial cancer determined by uterine biopsy (CMS-HCC) Other cirrhosis of liver (CMS-HCC) Thrombocytopenia (CMS-HCC) Endometrial carcinoma (CMS-HCC) Hepatosplenomegaly Procedures CT chest with contrast Divya Galloway MD [address] [place] [address] [address] [place] [id number] Referral ID Status Reason Start Date Expiration Date V isits Requested Visits Authorized [id number] Pending Review 09/23/2023 09/22/2024 1 1 Chief Complaint and Reason for Visit Chief Complaint Admit Date Refer: GERD April 23, 2024 9:54am Chief Complaint Admit Date Refer: GERD April 23, 2024 9:54am GERD, EARLY SATIETY,NAUSEA May 10 11:29am GERD, EARLY SATIETY,NAUSEA May 10 1:45pm Reason for Visit Admit Date Abdominal pain April 23, 2024 9:54am Dyspepsia April 23, 2024 9:54am GERD (gastroesophageal reflux disease) F ebruary 2024 9:54am Unexplained weight loss April 23 9:54am Additional Source Comments INFORMATION SOURCE (unrecogn ized section and content) DATE CREATED AUTHOR 08/18/2017 [employer] [facility] DATE CREATED AUTHOR AUTHOR'S ORGANIZ ATION 09/20/2021 [facility] DATE CREATED AUTHOR AUTHOR'S ORGANIZ ATION 11/02/2021 [facility] DATE CREATED AUTHOR AUTHOR'S ORGANIZ ATION 02/19/2022 [facility] DATE CREATED AUTHOR AUTHOR'S ORGANIZ ATION 07/06/2023 [facility] DATE CREATED AUTHOR AUTHOR'S ORGANIZ ATION 02/17/2024 [facility] DATE CREATED AUTHOR AUTHOR'S ORGANIZ ATION 05/24/2024 [facility] DATE CREATED AUTHOR AUTHOR'S ORGANIZ ATION 10/19/2024 [facility] DATE CREATED AUTHOR AUTHOR'S ORGANIZ ATION 12/02/2024 [facility] DATE CREATED AUTHOR AUTHOR'S ORGANIZ ATION 12/11/2024 [facility] Care Teams (unrecognized sec tion and content) [employer]ribusiness Internship Relationship Specialty Start Date End Date Michelle Rebollar [address] [place] [address] PCP - General 07/22/21 [employer] Internship Relationship Specialty Start Date End Date [facility] [address] [place], [place] PCP - General Family Medicine 03/15/24 [employer]usiness Internship Relationship Specialty Start Date End Date Michelle Rebollar PA-C [address] [place] [address] PCP - General Physician Student Ministries Director 07/10/20 [employer] Internship Relationship Specialty Start Date End Date Michelle Rebollar PA-C [address] [place] [address] PCP - General Physician Student Ministries Director 07/10/20 [employer] Internship Relationship Specialty Start Date End Date Michelle Rebollar PA-C [address] [place] [address] PCP - General Physician Student Ministries Director 07/13/23 [employer]usiness Internship Relationship Specialty Start Date End Date Michelle Rebollar PA-C [address] [place] [address] PCP - General Physician Student Ministries Director 07/13/23 [employer]usiness Internship Relationship Specialty Start Date End Date Michelle Rebollar PA-C [address] [place] [address] PCP - General Physician Student Ministries Director 07/13/23 [employer]usiness Internship Relationship Specialty Start Date End Date Michelle Rebollar PA-C [address] [place] [address] PCP - General Physician Student Ministries Director 07/13/23 [employer] Internship Relationship Specialty Start Date End Date Michelle Rebollar PA-C [address] [place] [address] PCP - General Physician Student Ministries Director 07/13/23 [employer]usiness Internship Relationship Specialty Start Date End Date Michelle Rebollar PA-C [address] [place] [address] PCP - General Physician Student Ministries Director 07/13/23 [employer]ribusiness Internship Relationship Specialty Start Date End Date Michelle Rebollar PA-C [address] [place] [address] PCP - General Physician Student Ministries Director 12/01/23 [employer]usiness Internship Relationship Specialty Start Date End Date Michelle Rebollar PA-C [address] [place] [address] PCP - General Physician Student Ministries Director 12/01/23 [employer]ribusiness Internship Relationship Specialty Start Date End Date Michelle Rebollar PA-C [address] [place] [address] PCP - General Physician Student Ministries Director 12/01/23 Agribusiness Internship Relationship Specialty Start Date End Date Michelle Rebollar PA-C [address] [place] [address] PCP - General Physician Student Ministries Director 12/01/23 Team Status: Active Member Role Status Dates Lucia Olmos APRN URBAN PLANNING TEACHER-C Primary Care Provide r Active Team Status: Active Member Role Status Dates Anne Soto DO Attending Provider Active St art: March 16, 2024 Team Status: Inactive Member Role Status Dates Chen Oconnor APRN Attending Provider Active Start: April 23, 2024 End: April 23, 2024 Lucia Olmos APRN NP-C Primary Care Provider, Referring Provider Active Start: April 23, 2024 End: April 23, 2024 Team Status: Inactive Member Role Status Dates Lucia Olmos APRN URBAN PLANNING TEACHER-C Primary Care Provider Active Start: May 10, 2024 End: May 10, 2024 Pedro Russ MD Attending Provider Active Start: May 10, 2024 End: May 10, 2024 Team Status: Active Member Role Status Dates Lucia Olmos APRN URBAN PLANNING TEACHER-C Primary Care Provider Active Start: May 10, 2024 Pedro Russ MD Attending Provider, Other Provider Active Start: May 10, 2024 Agribusiness Internship Relationship Specialty Start Date End Date Services, [facility] [address] [place] PCP - General Family Medicine 03/15/24 Agribusiness Internship Relationship Specialty Start Date End Date Services, [facility] [address] [place] PCP - General Family Medicine 03/15/24 Agribusiness Internship Relationship [facility] [address] [place] PCP - General Family Medicine 03/15/24 Agribusiness Internship Relationship Specialty Start Date End Date Services, [facility] [address] [place] PCP - General Family Medicine 03/15/24 Agribusiness Internship Relationship Specialty Start Date End Date Services, [facility] [address] [place] PCP - General Family Medicine 03/15/24 Agribusiness Internship Relationship Specialty Start Date End Date Services, [facility] [address] [place] PCP - General Family Medicine 03/15/24 Agribusiness Internship Relationship Specialty Start Date End Date Services, [facility] [address] [place] PCP - General Family Medicine 03/15/24 Agribusiness Internship Relationship Specialty Start Date End Date Services, [facility] [address] [place] PCP - General Family Medicine 03/15/24 Agribusiness Internship Relationship Specialty Start Date End Date Services, [facility] [address] [place] PCP - General Family Medicine 03/15/24 Agribusiness Internship Relationship Specialty Start Date End Date Services, [facility] [address] [place] PCP - General Family Medicine 03/15/24 Reason for Visit (unrecogniz ed section and content) Reason Comments Hernia VENTRAL HERNIA, REFE RRED BY LUCIA OLMOS NP Reason Comments Follow-up Reason Onset Date Comments Multiple Needs 08/01/2023 Reason Onset Date Comments CTA cors 12/16/2023 Reason Comments Follow-up Chest Pain Reason Comments Follow-up EST PT F/U CTA DONE SCHED W/ PT lmom for pt re: her OON ins.06-13-24 sjn Reason Comments Vomiting Persistent vomiting and abdominal pain, self referred Reason Onset Date Comments Re-establish Care 11/27/2024 Reason Comments Med Refill Goals (unrecognized section and content) Goals may be documented in a n alternate section FOR RECORDS PERTAINING TO PATIENTS WHO ARE [...] BE BASED ON THE PRIMARY CLINICAL RECORDS. [facility], [facility]. provides no warranty or guarantee of the accuracy or completeness of information in this document.
[2024-12-18 00:10] VITALS: BP 133/91; PULSE 72; TEMP 36.7; O2SAT 99; BMI 28.6
--- NOTE | 2024-12-18 00:19 | ECG_ITS ---
The [facility] Test Date: 2024-12-18 Pat Name: KATELYN KHAN Department: Room: - Gender: Female Fixer Boarding Room: : 1965 Requested By: 1030 Order Number: [id number] Reading MD: CHRISTOPHER CORRAL Measurements Intervals Leggett Rate: 67 P: 51 PA: 128 QRS: 90 QRSD: 90 T: 53 QT: 496 QTc: 512 Interpretive Statements 1100 Sinus rhythm 8304 Long QTc interval 9150 abnormal ECG No previous ECG available for comparison Electronically Signed On 12-18-2024 17:12:29 EDT by CHRISTOPHER CORRAL
--- NOTE | 2024-12-18 00:19 | ED.GENADUL1 ---
HPI HPI - General Adult General Chief complaint: Nausea/Vomiting/Diarrhea Stated complaint: VOMITING 13 TIMES Time Seen by Provider: 12/18/24 00:12 Source: patient Mode of arrival: walk-in Limitations: no limitations History of Present Illness HPI narrative: 58-year-old female presented to the emergency department for abdominal pain and vomiting. She has not had diarrhea. Vomiting began at 7 AM, 17 hours ago. No hematemesis and she has not been around any ill people. Related Data Home Medications ?Medication ?Instructions ?Recorded ?Confirmed alprazolam 0.25 mg tablet 0.25 mg PO TID PRN anxiety 09/03/22 12/18/24 glipizide 5 mg tablet, extended 5 mg PO DAILY 09/03/22 12/18/24 release 24 hr insulin glargine 100 unit/mL (3 1 unit subcut DAILY 09/03/22 12/18/24 mL) subcutaneous pen (Lantus Solostar U-100 Insulin) spironolactone 50 mg tablet 50 mg PO DAILY 09/03/22 02/10/23 trazodone 50 mg tablet mg 12/18/24 Previous Rx's ?Medication ?Instructions ?Recorded acetaminophen 325 mg capsule 325 mg PO Q6H PRN fever or pain 03/05/23 (Tylenol) #60 caps ondansetron 4 mg disintegrating 4 mg PO Q6H PRN nausea and 12/18/24 tablet vomiting #20 tabs Allergies Allergy/AdvReac Type Severity Reaction Status Date / Time Penicillins Allergy Unknown Verified 02/11/23 14:17 albuterol Allergy Swelling Verified 02/11/23 14:17 of Lip/Tongue/Throat empagliflozin (From AdvReac Mild Nausea Verified 02/11/23 14:17 Jardiance) amoxicillin AdvReac Verified 02/11/23 14:17 ibuprofen (From Motrin) AdvReac Verified 02/11/23 14:17 loratadine AdvReac Verified 02/11/23 14:17 Opioid HPI Opioid Management Most Recent Opioid Data: Last Pain Scale 10 Today, 00:10 Review of Systems ROS Narrative A ten point review of systems is negative except as noted above. PFSH PFS Medical History (Updated 12/18/24 @ 02:31 by Jacob Gallagher MD) Hx of ovarian cancer ?Z85.43 - Personal history of malignant neoplasm of ovary (ICD-10) Hx of cervical cancer ?Z85.41 - Personal history of malignant neoplasm of cervix uteri (ICD-10) Hx of renal calculi ?Z87.442 - Personal history of urinary calculi (ICD-10) History of COPD ?Z87.09 - Personal history of other diseases of the respiratory system (ICD-10) IDDM (insulin dependent diabetes mellitus) Hx of gastroesophageal reflux (GERD) ?Z87.19 - Personal history of other diseases of the digestive system (ICD-10) Hx of cardiac murmur ?Z86.79 - Personal history of other diseases of the circulatory system (ICD-10) Hypertension ?I10 - Essential (primary) hypertension (ICD-10) Hx of irritable bowel syndrome ?Z87.19 - Personal history of other diseases of the digestive system (ICD-10) History of asthma ?Z87.09 - Personal history of other diseases of the respiratory system (ICD-10) Hx of sleep apnea ?Z86.69 - Personal history of other diseases of the nervous system and sense organs (ICD-10) Surgical History (Updated 09/18/22 @ 13:40 by Sarbjit Kauffman) Hx of tonsillectomy ?Z90.89 - Acquired absence of other organs (ICD-10) Hx laparoscopic cholecystectomy ?Z90.49 - Acquired absence of other specified parts of digestive tract (ICD-10) Hx of arthroscopy of shoulder ?Z98.890 - Other specified postprocedural states (ICD-10) Hx of unilateral oophorectomy ?Z90.721 - Acquired absence of ovaries, unilateral (ICD-10) History of loop electrosurgical excision procedure (LEEP) ?Z98.890 - Other specified postprocedural states (ICD-10) Social History Smoking status: Never smoker Little interest or pleasure in doing things: not at all Feeling down, depressed, or hopeless: not at all Exam Narrative Exam Narrative: Nurses note and vital signs reviewed General:The patient appears in no acute distress Skin:Warm, dry, no pallor noted.There is no rash noted. Head:Normocephalic, atraumatic Eye: Normal conjunctiva, no drainage Ears, Nose, Mouth, and Throat: oral mucosa is moist. Nares patent. Cardiovascular:Regular Rate and Rhythm Respiratory:Patient is in no distress, no accessory muscle use, lungs are clear to auscultation, no wheezing, rales or rhonchi Back:non-tender GI: Soft and nondistended. She appears to have some mild diffuse tenderness. Musculoskeletal: The patient has no evidence of calf tenderness, no pitting edema, symmetrical pulses noted bilaterally Neurological: Awake and alert Psychiatric:Cooperative Constitutional Vital Signs, click to edit/add: Last Vital Signs Temp 98.1 F 12/18/24 00:10 Pulse 72 12/18/24 00:10 Resp 18 12/18/24 00:10 BP 133/91 12/18/24 00:10 Pulse Ox 99 12/18/24 00:10 O2 Del Method Room Air 12/18/24 00:10 Course Vital Signs Vital signs: Vital Signs Temperature 98.1 F 12/18/24 00:10 Pulse Rate 72 12/18/24 00:10 Respiratory Rate 18 12/18/24 00:10 Blood Pressure 133/91 12/18/24 00:10 Pulse Oximetry 99 12/18/24 00:10 Oxygen Delivery Method Room Air 12/18/24 00:10 Temperature 98.1 F 12/18/24 00:10 Pulse Rate 72 12/18/24 00:10 Respiratory Rate 18 12/18/24 00:10 Blood Pressure 133/91 12/18/24 00:10 Pulse Oximetry 99 12/18/24 00:10 Oxygen Delivery Method Room Air 12/18/24 00:10 Medical Decision Making MDM Narrative Medical decision making narrative: Blood work is essentially normal and she is feeling improved after being given IV fluids and Zofran. She is discharged home with a prescription for Zofran. Treatment diagnosis and follow-up were discussed with the patient. Differential Diagnosis Differential Diagnosis: Gastroenteritis, dehydration, pancreatitis, acute kidney injury Lab Data Lab results reviewed: Yes I reviewed the patient's lab results Labs: Lab Results 12/18/24 12/18/24 Range/Units 00:22 01:11 WBC 9.6 (4.0-11.0) 10^3/uL RBC 4.93 (4.20-5.40) 10^6/uL Hgb 16.2 H (12.0-16.0) g/dL Hct 44.1 (36.0-48.0) % MCV 89.5 (81.0-99.0) fL MCH 32.9 (26.7-34.0) pg MCHC 36.7 H (29.9-35.2) g/dL RDW 12.9 (11.0-15.0) % Plt Count 136 L (150-450) 10^3/uL MPV 11.5 (9.5-13.5) fL Neut % (Auto) 74.0 (43.0-75.0) % Lymph % (Auto) 19.6 L (20.5-60.0) % [place] % (Auto) 5.6 (1.7-12.0) % Eos % (Auto) 0.2 L (0.9-7.0) % Baso % (Auto) 0.2 (0.2-2.0) % Neut # (Auto) 7.1 H (1.4-6.5) 10^3/uL Lymph # (Auto) 1.9 (1.2-3.8) 10^3/uL [place] # (Auto) 0.5 (0.3-0.8) 10^3/uL Eos # (Auto) 0.0 (0.0-0.7) 10^3/uL Baso # (Auto) 0.0 (0.0-0.1) 10^3/uL Abs Immat Gran (auto) 0.04 H (0.00-0.03) 10^3/uL Imm/Tot Granulo (auto) 0.4 (0.0-0.5) % Sodium 140 (136-145) mmol/L Potassium 3.3 L (3.5-5.1) mmol/L Chloride 100 (98-107) mmol/L Carbon Dioxide 23.3 (21.0-32.0) mmol/L Anion Gap 20.0 BUN 11.0 (7.0-18.0) mg/dL Creatinine 1.21 H (0.55-1.02) mg/dL Est GFR ( Amer) 55 L (>=60 mL/min/1.73m^2) Est GFR (Non-Af Amer) 46 L (>=60 mL/min/1.73m^2) BUN/Creatinine Ratio 9.1 Glucose 303 H (74-106) mg/dL Calcium 9.9 (8.5-10.1) mg/dL Total Bilirubin 2.0 H (0.2-1.0) mg/dL Direct Bilirubin 0.2 (0.0-0.2) mg/dL AST 25 (15-37) U/L ALT 29 (14-59) U/L Alkaline Phosphatase 90 (46-116) U/L Total Protein 7.9 (6.4-8.2) g/dL Albumin 4.3 (3.4-5.0) g/dL Globulin 3.6 g/dL Albumin/Globulin Ratio 1.2 Amylase 24 L (25-115) U/L Lipase 13.0 L (16.0-77.0) U/L Urine Color Yellow (YELLOW) Urine Clarity Clear (CLEAR) Urine pH 8.5 (5.0-9.0) Ur Specific [place] 1.015 (1.005-1.025) Urine Protein 100 A (NEG/TRACE) mg/dL Urine Glucose (UA) 100 A (NEGATIVE) mg/dL Urine Ketones >=80 A (NEGATIVE) mg/dL Urine Occult Blood Negative (NEGATIVE) Urine Nitrite Negative (NEGATIVE) Urine Bilirubin Small A (NEGATIVE) Urine Urobilinogen 1.0 (0.2-1.0) EU/dL Ur Leukocyte Esterase Negative (NEGATIVE) Urine RBC 2-5 A (0-2) #/HPF Urine WBC 2-5 A (NONE SEEN) #/HPF Ur Squamous Epith Cells Few A (NONE/RARE) #/LPF Urine Crystals None seen (None Seen) #/HPF Urine Bacteria Small A (NONE SEEN) #/HPF Urine Casts Seen A (NONE SEEN) #/LPF Hyaline Casts Rare Urine Mucus None seen (NONE SEEN) Ur Culture Indicated? Yes-[facility] Discharge Plan Discharge Chief Complaint: Nausea/Vomiting/Diarrhea Clinical Impression: Nausea, vomiting, and diarrhea Patient Disposition: Home, Self-Care Time of Disposition Decision: 02:31 Condition: Good Mode of Transportation: Private Vehicle Prescriptions / Home Meds: New ondansetron 4 mg tablet,disintegrating 4 mg PO Q6H PRN (Reason: nausea and vomiting) Qty: 20 0RF No Action glipizide 5 mg tablet extended release 24hr 5 mg PO DAILY alprazolam 0.25 mg tablet 0.25 mg PO TID PRN (Reason: anxiety) spironolactone 50 mg tablet 50 mg PO DAILY insulin glargine [Lantus Solostar U-100 Insulin] 100 unit/mL (3 mL) insulin pen 1 unit SUBCUT DAILY acetaminophen [Tylenol] 325 mg capsule 325 mg PO Q6H PRN (Reason: fever or pain) Qty: 60 0RF trazodone 50 mg tablet Print Language: Hungarian Instructions: Acute Nausea and Vomiting (ED), Acute Diarrhea (ED) Referrals: Aubrey Salazar [Primary Care Provider] - 1 week
[2024-12-18 00:46] LABS: Hematocrit 44.1 % (36.0-48.0); Hemoglobin 16.2 g/dL (12.0-16.0); Immature Granulocytes Abs Auto 0.04 10^3/uL (0.00-0.03); Immature Granulocytes Pct Auto 0.4 % (0.0-0.5); Lymphocytes Absolute Auto 1.9 10^3/uL (1.2-3.8); Mean Corpuscular HGB Conc 36.7 g/dL (29.9-35.2); Mean Corpuscular Hemoglobin 32.9 pg (26.7-34.0); Mean Corpuscular Volume 89.5 fL (81.0-99.0); Platelet Count 136 10^3/uL (150-450); Red Blood Count 4.93 10^6/uL (4.20-5.40); White Blood Count 9.6 10^3/uL (4.0-11.0)
[2024-12-18] MEDS: 0.9 % SODIUM CHLORIDE 1,000 ML 1000 ML IV (00:48)
[2024-12-18 01:03] LABS: Alanine Aminotransferase 29 U/L (14-59); Albumin Globulin Ratio 1.2; Albumin Level 4.3 g/dL (3.4-5.0); Alkaline Phosphatase 90 U/L (46-116); Amylase 24 U/L (25-115); Anion Gap 20.0; Aspartate Amino Transferase 25 U/L (15-37); Blood Urea Nitrogen 11.0 mg/dL (7.0-18.0); Calcium 9.9 mg/dL (8.5-10.1); Carbon Dioxide 23.3 mmol/L (21.0-32.0); Chloride 100 mmol/L (98-107); Estimated GFR (African America 55 (>=60 mL/min/1.73m^2); Estimated GFR (Non-African Ame 46 (>=60 mL/min/1.73m^2); Globulin 3.6 g/dL; Glucose 303 mg/dL (74-106); Lipase 13.0 U/L (16.0-77.0); Potassium 3.3 mmol/L (3.5-5.1); Sodium 140 mmol/L (136-145); Total Protein 7.9 g/dL (6.4-8.2)
[2024-12-18 01:24] LABS: Glucose Urine UA 100 mg/dL (NEGATIVE)
[2024-12-18 01:42] LABS: Cast Seen? SEEN #/LPF (NONE SEEN); Crystals Seen? None Seen #/HPF (None Seen); Urine Culture Indicated YES-FRMC
== END 2024-12-18 02:30 | disposition home or self-care (01) ==
PROVIDERS: Emergency Provider Emergency Medicine
DX: R11.2 Nausea with vomiting, unspecified (principal); R19.7 Diarrhea, unspecified
CPT/HCPCS: 36415; 80048; 80076; 81001; 82150; 83690; 85025; 87086; 93005; 96361; 96374; 99284; J2405

== ENCOUNTER 2025-01-01 14:37 | Emergency (ER) | payer BC, OTHER, SELFPAY ==
--- OUTSIDE RECORDS SUMMARY | 2024-09-17 05:45 | XMS_ITS ---
Author Organization [facility] vices Address [address] [place] [id number] Care Team Providers Care Marketing And Public Relations Manager Name Role Phone lOga Massey Primary Care Provider [phone] REASON FOR VISIT 4 week Vomiting, DM Social History Sex Assigned At : Social History Observation Description Sex Assigned At Female Encounters Encounter Location Date Provider Diagnosis Main [address] [place] [id number] 09/17/2024 Olga Massey Plan Of Treatment No Information Progress Notes * Madhavi KHAN SDOB: 6 (59 yo F)Acc No.[id number]:09/17/2024 Medical Note Patient: Madhavi VIVAS :?Olga Massey, MDDOB:1965???Age:58 Y???Sex: FemaleDate:09/17/2024Phone:[phone]:[address] [id number] Subjective: * Chief Complaints: * 1 . 4 week Vomiting, DM. * Medical History: Objective: * Vitals: Assessment: Plan: * Treatment: * Billing Information: * Visit Code: * Procedure Codes: * Electronic signature of Olga Massey MD on 01/01/2025 at 02:49 PM ESTSign off status: Pending * Provider: Wilian Massey MD Date: 0 09/17/2024 Generated for Printing/Faxing/eTransmitting on:?01/01/2025 02:49 PM EST
--- OUTSIDE RECORDS SUMMARY | 2024-10-01 05:00 | XMS_ITS ---
Author Organization [facility] vices Address [address] [place] [id number] Care Team Providers Care Fisher [place] Name Role Phone Olga Massey Primary Care Provider REASON FOR VISIT Vomiting/ DM Social History Sex Assigned At : Social History Observation Description Sex Assigned At Female Encounters Encounter Location Date Provider Diagnosis Main [address] [place] [id number] 10/01/2024 Olga Massey Plan Of Treatment No Information Progress Notes * Madhavi KHAN SDOB: [birth year] (59 yo F)Acc No.[id number]:10/01/2024 Medical Note Patient: Madhavi VIVAS :?Olga Massey, MDDOB:1965???Age:58 Y???Sex: FemaleDate:10/01/2024Phone:[phone]:[address] [place], [place] Subjective: * Chief Complaints: * 1 . Vomiting/ DM. * Medical History: Objective: * Vitals: Assessment: Plan: * Treatment: * Billing Information: * Visit Code: * Procedure Codes: * Electronic signature of Olga Massey MD on 01/01/2025 at 02:49 PM ESTSign off status: Pending * Provider: Wilian Massey MD Date: 0 10/01/2024 Generated for Printing/Faxing/eTransmitting on:?01/01/2025 02:49 PM EST
--- OUTSIDE RECORDS SUMMARY | 2024-10-04 06:00 | XMS_ITS ---
Author Organization [facility] vices Address [address] [place] [id number] Care Team Providers Care Casino Cage Cashier Name Role Phone Olga Massey Primary Care Provider [phone] REASON FOR VISIT DM, Vomiting Social History Sex Assigned At : Social History Observation Description Sex Assigned At Female Encounters Encounter Location Date Provider Diagnosis Main [address] [id number] 10/04/2024 Olga Massey Plan Of Treatment No Information Progress Notes * Madhavi KHAN SDOB: [birth year] (59 yo F)Acc No.[id number]:10/04/2024 Medical Note Patient: Madhavi VIVAS :?Olga Massey, MDDOB:1965???Age:58 Y???Sex: FemaleDate:10/04/2024Phone:[phone]:[address] [place], [place] Subjective: * Chief Complaints: * 1 . DM, Vomiting. * Medical History: Objective: * Vitals: Assessment: Plan: * Treatment: * Billing Information: * Visit Code: * Procedure Codes: * Electronic signature of Olga Massey MD on 01/01/2025 at 02:49 PM ESTSign off status: Pending * Provider: Wilian Massey MD Date: 0 10/04/2024 Generated for Printing/Faxing/eTransmitting on:?01/01/2025 02:49 PM EST
--- OUTSIDE RECORDS SUMMARY | 2024-10-24 05:30 | XMS_ITS ---
Author Organization [facility] vices Address [address] [place] [id number] Care Team Providers Care Lean Process Deployment Consultant Name Role Phone Olga Massey Primary Care Provider [phone] REASON FOR VISIT 2 week Hypotension Social History Sex Assigned At : Social History Observation Description Sex Assigned At Female Encounters Encounter Location Date Provider Diagnosis Main [address] [place] [id number] 10/24/2024 Olga Massey Plan Of Treatment No Information Progress Notes * Madhavi KHAN SDOB: [birth year] (59 yo F)Acc No.[id number]:10/24/2024 Medical Note Patient: Madhavi VIVAS :?Olga Massey, MDDOB:1965???Age:58 Y???Sex: FemaleDate:10/24/2024Phone:[phone]:[address] [place], [place] Subjective: * Chief Complaints: * 1 . 2 week Hypotension. * Medical History: Objective: * Vitals: Assessment: Plan: * Treatment: * Billing Information: * Visit Code: * Procedure Codes: * Electronic signature of Olga Massey MD on 01/01/2025 at 02:49 PM ESTSign off status: Pending * Provider: Wilian Massey MD Date: 0 10/24/2024 Generated for Printing/Faxing/eTransmitting on:?01/01/2025 02:49 PM EST
--- OUTSIDE RECORDS SUMMARY | 2024-11-06 07:45 | XMS_ITS ---
Author Organization [facility] vices Address [address] [place] [id number] Care Team Providers Care Punch Card Operator Name Role Phone Olga Massey Primary Care Provider REASON FOR VISIT 2 week hypotension Social History Sex Assigned At : Social History Observation Description Sex Assigned At Female Encounters Encounter Location Date Provider Diagnosis Main [address] [place] [id number] 11/06/2024 Olga Massey Plan Of Treatment No Information Progress Notes * Madhavi KHAN SDOB: [birth year] (59 yo F)Acc No.[id number]:11/06/2024 Medical Note Patient: Madhavi VIVAS :?Olga Massey, MDDOB:1965???Age:58 Y???Sex: FemaleDate:11/06/2024Phone:[phone]:[address] [place], [place] Subjective: * Chief Complaints: * 1 . 2 week hypotension. * Medical History: Objective: * Vitals: Assessment: Plan: * Treatment: * Billing Information: * Visit Code: * Procedure Codes: * Electronic signature of Olga Massey MD on 01/01/2025 at 02:50 PM ESTSign off status: Pending * Provider: Wilian Massey MD Date: 0 11/06/2024 Generated for Printing/Faxing/eTransmitting on:?01/01/2025 02:50 PM EST
--- OUTSIDE RECORDS SUMMARY | 2024-12-14 05:15 | XMS_ITS ---
Author Organization [facility] vice Address [address] [place], [place] [id number] Care Team Providers Care Road Freight Brake Coupler Name Role Phone Bryson Olga Primary Care Provider Philippe Burkett [phone] REASON FOR VISIT Extraction #2 #3 Social History Sex Assigned At : Social History Observation Description Sex Assigned At Female Encounters Encounter Location Date Provider Diagnosis Dental Main [address] [place], [place] [id number] 12/14/2024 Philippe Burkett Plan Of Treatment No Information Progress Notes * Madhavi KHAN SDOB: [birth year] (59 yo F)Acc No.[id number]:12/14/2024 Patient:Madhavi RIVERS :?Philippe Burkett DDSDOB:1965???Age:58 Y ???Sex:FemaleDate:12/14/2024Phone:[phone]:[address] [place], [place]Tph:Olga Sanfordl Subjective: * Chief Complaints: * 1 . Extraction #2 #3. * Medical History: Objective: * Vitals: Assessment: Plan: * Treatment: * Billing Information: * Visit Code: * Procedure Codes: * Electronic signature of Philippe Burkett DDS on 01/01/2025 at 02:48 PM ESTSign off status: Pending * Provider: Calixto Burkett DDS Date: Generated for Printing/Faxing/eTransmitting on:?01/01/2025 02:48 PM EST
--- OUTSIDE RECORDS SUMMARY | 2024-12-18 19:42 | XMS_ITS | Continuity of Care Document ---
Author Organization [facility] Address [address] [place] [address] Phone Care Team Providers Care Gas Regulator Repairer Helper Name Role Phone Alberto Gallagher DO Attending Provider Care Teams Patient Care Team Team Status: Inactive Member Role/Relationship Status Dates Alberto Gallagher DO Attending Provider Active S tart: December 18, 2024 End: December 18, 2024 Chief Complaint and Reason for Visit Chief Complaint Admit Date Unknown December 18, 2024 1 :11am Allergies, Adverse Reactions, Alerts Allergen Type Severity Reaction Last Updated Verified Status alogliptin Allergy Moderate Anaphylaxis May 10, 2024 11:47am Yes Active amoxicillin Allergy Moderate Anaphylaxis May 10, 2024 11:47am Yes Active clavulanic acid Allergy Moderate Anaphylaxis May 102024 11:47am Yes Active empagliflozin Allergy Moderate Nausea May 10, 2024 11:47am Yes Active ibuprofen Allergy Moderate Unknown Reaction May 102024 11:47am Yes Active loratadine Allergy Moderate Anaphylaxis May 10, 2024 11:47am Yes Active albuterol Adverse Reaction Moderate Headache May 10, 2024 11:47am Yes Active Social History Smoking Status Status Start Date End Date Date of Observa tion Never smoked tobacco (finding) May 10, 2024 11:48am Observation Status Observation Response Date of Response Legal Sex [facility] (finding) [facility] Family History Relationship Condition Age at Onset Recorded Date/T alden father Malignant neoplasm Unknown sisterDiabetes mellitusUnknown Problems Active Problems Problem Diagnosis/Recorded Date Onset Date Stat us Cervical cancer April 23, 2024 11:35am Unknown Active Ureter cancer April 23, 2024 11:35am Unknown Active Diabetes mellitus April 23, 2024 11:33am Unknown Active Kidney disease April 23, 2024 11:34am Unknown Active Fatty liver April 23, 2024 11:35am Unknown Active Coronary artery disease April 23, 2024 11:51am Un known Active Depression April 23, 2024 11:51am Unknown Active Dyspepsia April 23, 2024 1:37pm Unknown A ctive Hypercholesteremia April 23, 2024 11:34am Unknown Active Hyperlipidemia April 23, 2024 11:49am Unknown Active Hx of cholecystectomy April 23, 2024 11:38am Unkn own Active Hx of tubal ligation April 23, 2024 11:37am Unkno wn Active History of leukemia April 23, 2024 11:36am Unknow n Active Helicobacter pylori (H. pylori) May 17, 2024 2:56p m Unknown Active GERD (gastroesophageal reflux disease) April 23, 2024 1:37pm Unknown Active Unexplained weight loss April 23, 2024 1:37pm Unk nown Active Abdominal pain April 23, 2024 1:37pm Unknown Active Hypertension April 23, 2024 11:33am Unknown Active Asthma April 23, 2024 11:51am Unknown Active Medications Medication Status Dose Units Route Directions Qty Days Refills S tart Date Stop Date End Date Reason(s) Instructions Adherence Bismuth Subsalicylate 525 mg tablet Active 525 MG PO Four times daily 56 14 0 May 17, 2024 12:00am do not exceed 8 doses in a 24 hour periodUnknownMetronidazole 250 mg tablet Jxtcrc677RUERWwtk times ening25636Pwsmz2024 12:00amUnknownTetracycline 500 mg vjntbzuLpcjek426KZZMTvsw times hhang14740Sipks 2024 12:00amUnknown Omeprazole 40 mg capsule,delayed release(DR/EC)Gohsgp90DVZIEbmfj izkst81643Pupgj2024 12:00amUnknownOmeprazole 40 mg capsule,delayed release(DR/EC)Ikhgfa24 DYAGNwhsh89434Zqazw 2024 12:00amUnknownLisinopril 10 mg tabletDiscontinued 10MGPODailyFebruary 2024 1:00amFebruary 2024 3:23pmBrexpiprazole (Rexulti) 1 mg macmchMhzlxe1AXFKNfhfyOsfqwofn 2024 1:00amUnknownLoperamide 2 mg ilvksqcDlyfsa2ZBVKIpos times daily as needed for loose stoolFebruary 2024 1:00amUnknownTrazodone 50 mg sgfflkUsufwe47ARSSQogis at bedtime as needed for sleepFebruary 2024 1:00amUnknownGlipizide 5 mg phkknmNobozt9JMKEXvijc dailyFebruary 2024 1:00amUnknownAtorvastatin 40 mg ukjoluZyavnh51FHTCUrmif April 23, 2024 1:00amUnknownFluoxetine 10 mg gpqbtfjEoezge23ICQZPledb April 23, 2024 1:00amUnknownDulaglutide (Trulicity) 0.75 mg/0.5 mL pen injectorActive0.75MGSUBCUTevery weekFebruary 2024 1:00amUnknown Procedures Procedure Date Performed Status Urine Culture December 18, 2024 active Advance Directives Advance Directive Response Recorded Date/ Time Advance Directives No March 20, 2024 1:17pm Insurance Providers Guarantor Madhavi Easton Address [address] [facility] [address]Lotyxjv Info.Home Phone: Coverage Status Update:2024 Payer Group Member ID Coverage Type Subscriber Relationship to Subscriber Effective Date Expiration Date [employer] [id number] S Gabel Id: [id number] [address] [facility] [address] Home Phone: Email: [email or web address] Encounters Encounter Location(s) Arrival/Admit Date Discharge/Departure Date Discharge/Departure Disposition Provider(s) Departed Referred -[facility] December 18, 2024 1:11am December 18, 2024 1:12am Discharged to home care or self care (routine discharge) Jen Reed DO Plan of Treatment Future Tests Future scheduled test information is unavailable Pending Tests Test Name Ordered Date Scheduled Date Urine Culture December 18, 2024 1:11am Future Visits Future appointment information is unavailable Future Procedures Procedure Name Ordered Date Scheduled Date Urine Culture December 18, 2024 12:53pm Octob er 2024 1:11am Future Medications Future medication information is unavailable Patient Instructions Patient instructions are unavailable
--- OUTSIDE RECORDS SUMMARY | 2024-12-21 05:15 | XMS_ITS ---
Author Organization [facility] Address [address] [place], [place] [id number] Care Team Providers Care Hand Candy Cutter Name Role Phone Bryson Olga Primary Care Provider Philippe Burkett [phone] REASON FOR VISIT Extraction #2 #3 Social History Sex Assigned At : Social History Observation Description Sex Assigned At Female Encounters Encounter Location Date Provider Diagnosis [facility] [address] [place], [place] [id number] 12/21/2024 Philippe Burkett Plan Of Treatment No Information Progress Notes * Madhavi KHAN SDOB: [birth year] (59 yo F)Acc No.[id number]:12/21/2024 Patient:Madhavi RIVERS :?Philippe Burkett DDSDOB:1965???Age:59 Y ???Sex:FemaleDate:12/21/2024Phone:[phone]:[address] [place] [place], [id number]:Olga Sanfordl Subjective: * Chief Complaints: * 1 . Extraction #2 #3. * Medical History: Objective: * Vitals: Assessment: Plan: * Treatment: * Billing Information: * Visit Code: * Procedure Codes: * Electronic signature of Philippe Burkett DDS on 01/01/2025 at 02:49 PM ESTSign off status: Pending * Provider: Calixto Burkett DDS Date: Generated for Printing/Faxing/eTransmitting on:?01/01/2025 02:49 PM EST
[2025-01-01 14:47] VITALS: BP 140/83; PULSE 75; TEMP 37.1; O2SAT 100; BMI 27.5
--- OUTSIDE RECORDS SUMMARY | 2025-01-01 14:49 | XMS_ITS | Patient Health Record ---
Author Organization [facility] [place] Address [address] [place] [address] Care Team Providers Care Nurses Director Name Role Phone Aubrey Miranda Primary Care Provider Unavailab le Allergies Allergen (clinical drug ingredient) Drug/Non Drug Allergy documented on EMR Reaction Allergy Type Onset Date Status amoxicillin / clavulanate Augmentin anaphylaxis Drug Gal rgy ActiveempagliflozinJardianceUnknownDrug AllergyActivealbuterolAlbuterolUnknown Drug AllergyActivealogliptinAlogliptinUnknownDrug AllergyActiveamoxicillin AmoxicillinUnknownDrug AllergyActiveStrawberrieshivesAllergyActiveibuprofen Ibuprofenstomach upsetDrug AllergyActiveloratadineLoratadineUnknownDrug Allergy ActivePenicillinhivesDrug AllergyActive Reason For Referral No Information Medications Medication SIG (Take, Route, Frequency, Duration) Notes Start Date End Date Status Lidocaine 5 % 1 patch remove after 12 hours Externally Once a day; Duration: 30 days 01/27/2022ctiveMeclizine HCl 25 MG1 tablet as needed Orally every 12 hrs Not-TakingLisinopril 10 MG1 tablet Orally Once a day; Duration: 30 day(s)Active oxyCODONE-Acetaminophen 5-325 MG1 tablet as needed Orally every 6-8 hrs; Duration: 7 days12/16/2021Not-TakingGlimepiride 1 MG1 tablet with breakfast or the first main meal of the day Orally Once a day; Duration: 30 day(s)Active Simvastatin 40 MG1 tablet in the evening Orally Once a day; Duration: 30 day(s) ActiveLantus SoloStar 100 UNIT/MLas directed Dknkswlpadsf36 units at bedtime ActiveErgocalciferol 1.25 MG (62807 UT)1 capsule Orally weekly; Duration: 56 daysNot-TakingMeloxicam 15 MG1 tablet Orally Once a day; Duration: 30 day(s) ActiveAldactone 50 MG1 tablet Orally Once a day; Duration: 30 day(s)Active Meloxicam 15 MG1 tablet Orally Once a day; Duration: 90 day(s)07/28/2022ctive LORazepam 0.5 MG1 tablet at bedtime as needed Orally Once a dayActivePrimidone 50 MG1 tablet Orally Once a day; Duration: 30 day(s)Not-TakingLSO Braceas directed LSO daily; Duration: 365 daysfor stabilization, patient has weakness and/or deformity, patient is ambulatory and will benefit siymhownjgtx69/31/2023 ActivetraMADol HCl 50 MG1 tablet as needed Orally ebery 6-8 hours; Duration: 7 Not-TakingFosamax 70 MG1 tablet 30 minutes before the first food, beverage or medicine of the day with plain water Orally weekly; Duration: 90 days01/27/2022 ActiveMethocarbamol 750 MG1 tablet Orally every 8 hrsActiveKnee Brace Adjustable Hinged -as directed right knee - unsteady gait daily; Duration: 365 daysfor stabilization, patient has weakness and/or deformity, patient is ambulatory and will benefit iiodpnnrsjji06/12/2023ctiveGabapentin 600 MG1 tablet Orally TID ActiveOmega 3 1000 MG1 capsule Orally Once a day; Duration: 30 day(s)Active metFORMIN HCl 500 MG1 tablet with a meal Orally BIDActiveAmitriptyline HCl 50 MG 1 tablet at bedtime Orally Once a day; Duration: 30 day(s)Active Problems Problem Type SNOMED Code ICD Code Onset Dates Problem Status W/U Status Risk Notes Problem Age-related osteoporosis (244615 002) Age-related osteoporosis without current pathological fracture (M81.0) ActiveconfirmedProblemPrimary osteoarthritis (327699729)Unilateral primary osteoarthritis, right knee (M17.11)ActiveconfirmedProblemDegeneration of thoracolumbar intervertebral disc (16993421)DDD (degenerative disc disease), thoracolumbar (M51.35)ActiveconfirmedProblemArthritis of right knee (0768884814664872)Arthritis of knee, right (M17.11)Activeconfirmed Plan Of Treatment Future Test Test Name Order Date XR Lumbar Spine (2-3 views) * 01/18/2022 XR Thoracic Spine AP and Lateral (dorsal ) 01/18/2022 XR Lumbar Spine (2-3 views) * 07/19/2022 XR Thoracic Spine AP and Lateral (dorsal ) 07/19/2022 Insurance Providers Payer Name Payer Address Payer Phone Subscriber Number Group Number Insured Name Patient Relationship to Insured Coverage Start Date Coverage End Date [employer] [place] [employer] [address] [place] [address] [id number] Madhavi Crook Self - patient is the insured 3 Medications Administered Medication Instructions Date of Administration Dosage Notes Dexamethasone, 4mg/mL mLLidocaine HCl mL Medical (General) History Medical History History ICD Code Cervical, Lumbosacral Spondylosis C-Spine stenosisendometrial cancerosteoporotic vertebral fracture T12, L1, L3 Cirrhosis of LiverHTNDiabetes Mellitus Type 2OSA - CPAPAsthmaGERD Thrombocytopenia - Nose bleedsAcute Leukemia, in remissionCKDCOPDDepression / AnxietyEpilepsyMigrainesKidney StonesHeart murmurHyperlipidemiaVisual Impairment Surgical History Surgery Date(Month/Year) T12, L1, L3 Kypho with biopsy Dr Allan 11/24/21
--- OUTSIDE RECORDS SUMMARY | 2025-01-01 14:49 | XMS_ITS | Clinical Summary ---
Author Organization [facility] Address [address] [place] [address] Care Team Providers Care Special Education Educational Assistant Name Role Phone Aubrey Salazar MD Primary Care Provider [phone] Allergies Active AllergyReactionsCriticalityNoted DateCommentsAlbuterolHeadacheLow 07/09/20167229ZhrwbnrhqmOvdfgweuzhrNbms26/22/2022moxicillinAnaphylaxis,SwellingHigh 07/09/2016 Throat swelling Throat swelling Throat swelling Amoxicillin-Pot QqjvjzntnulZlmbhdbiKjyu33/12/2017 THROAT AND TONGUE SWELLING THROAT AND TONGUE SWELLING THROAT AND TONGUE SWELLING Clavulanic ZxyuNhlroodygoaEexh41/22/2022EmpagliflozinAnaphylaxis,Nausea And BngroapcKmry43/18/2020 Other Reaction(s): Nausea And Vomiting IbuprofenGI vzzulhetUzru59/12/2017 COAGULATION DISORDER Bleeding from liver LzdbrkmgfvQmbbqpsoLiar82/12/2017 THROAT AND TONGUE SWELLING THROAT AND TONGUE SWELLING THROAT AND TONGUE SWELLING Vdypcvksirx34/06/2024Strawberry LosrprvKftttEixokp76/12/2017Strawberry Flavoring Agent (Non-Screening)Hives04/21/2021 Medications MedicationSigDispense QuantityRefillsLast FilledStart DateEnd DateStatus Multiple Vitamin (multivitamin) tablet Take 1 tablet by mouth DailyActive meloxicam (Mobic) 15 MG tablet Take 15 mg by mouth DailyActive spironolactone (Aldactone) 50 MG tablet Take 50 mg by mouth DailyActive omeprazole (PriLOSEC) [address] capsule Take 40 mg by mouth in the morning. Take before meals. Do not crush or chew.. Active LORazepam (Ativan) 0.5 MG tablet Take 0.5 mg by mouth as needed at bedtime for anxietyActive lisinopril 10 MG tablet Take 10 mg by mouth DailyActive omega-3 (Fish Oil) 1000 MG capsule Take 1,000 mg by mouth in the morning and 1,000 mg before bedtime.Active Rimegepant Sulfate (Nurtec) 75 MG tablet dispersible Take 75 mg by mouth every other dayActive gabapentin (Neurontin) 600 MG tablet Take 600 mg by mouth in the morning and 600 mg in the evening and 600 mg before bedtime.Active cyclobenzaprine (Flexeril) 10 MG tablet Take 5 mg by mouth at bedtime 1/2 TO 1 TABLETActive SUMAtriptan (Imitrex) 50 MG tablet Take 50 mg by mouth 1 (one) time if needed for migraine May repeat dose once in 2 hours if no relief. Do not exceed 2 doses in 24 hours.Active metFORMIN (Glucophage) 500 MG tablet Take 1,000 mg by mouth in the morning. Take with meals.Active amitriptyline (Elavil) 25 MG tablet Take 25 mg by mouth at bedtime 3 po q hs for 30 daysActive glipiZIDE (Glucotrol) 5 MG tablet Take 5 mg by mouth in the morning. Take with meals.Active simvastatin (Zocor) 40 MG tablet Take 40 mg by mouth at bedtimeActive insulin glargine (Lantus) 100 UNIT/ML pen Inject 35 Units under the skin in the morning.Active ALPRAZolam (Xanax) 0.25 MG tablet Take 0.25 mg by mouth as needed at qhlinaa9909/15/2022ctive docusate sodium (Colace) 100 MG capsule Take 100 mg by mouth in the morning.12/26/2022ctive insulin glargine (Lantus) 100 UNIT/ML injection Inject 35 Units under the skin at bedtimeActive Active Problems ProblemNoted DateDiagnosed DateCervical vcezdlbomwdso86/07/2024OSA (obstructive sleep apnea)07/05/2023nesthesia of skin07/05/2023Neck pain07/04/2023aresthesia of skin07/04/2023Essential zwtisq9510/03/2017Tension type eqsljevn26/06/2018 Central vestibular rgwyxgz0810/03/2017Degenerative disc disease, cervical 10/03/20174427Wwjxilam20/06/2018Obstructive sleep apnea10/03/2017Insomnia, xpmjsyknngt40/28/2298Jneraufd23/24/2017Vertigo of central lpysou1705/07/2015 Syndrome affecting cervical exrfsk2205/01/20158953Fdbnbyvhzqy01/02/2016Dizziness 04/30/2015Hypersomnia, gdxijzwehqi62/14/2010Seizure oubevnyi95/11/2009Pain in limb09/28/2007Common qleywmmm40/20/1672Wmugtdov34/07/2008Conversion disorder 08/05/20073714Rxeqbgx58/07/2008Tremor, scmgwzyor81/07/2008 Family History RelationNameStatusCommentsBrother 1AliveBrother 2AliveBrother 3AliveDaughter AliveFatherDeceasedMotherAliveSister 1AliveSister 2AliveSister 3AliveSister 4 DeceasedSonAlive Social History Tobacco UseTypesPacks/DayYears UsedDateSmoking Tobacco: NeverSmokeless Tobacco: Never Tobacco Cessation:Counseling Given: Not Answered Alcohol UseStandard Drinks/WeekCommentsNever0 (1 standard drink = 0.6 oz pure alcohol)CommentsUnknownSex and Gender InformationValueDate RecordedSex Assigned at BirthNot on fileLegal LzgZknkeo61/15/2023 6:36 PM EDTGender Identity Not on fileSexual OrientationNot on file Last Filed Vital Signs Vital SignReadingTime TakenCommentsBlood Tpbndhsm070/8005 10:28 AM EDT Vqsan8466/07/2024 10:28 AM EDTTemperature--Respiratory Bdbp243103/21/2023 12:38 PM ESTOxygen Foeocxlaol68%07/05/2023 10:28 AM EDTInhaled Oxygen Concentration-- Yeqysb04.2 kg (168 lb)07/05/2023 10:28 AM ARNZohvpv186.7 cm (5' 8 )07/05/2023 10:28 AM EDTBody Mass Index25.54007/05/2023 10:28 AM EDT Plan of Treatment Not on file Insurance Care Teams Team MemberRelationshipSpecialtyStart DateEnd Aubrey Salazar MD [address] [place] [id number] PCP - GeneralPhysician Assistant05/10/23
--- OUTSIDE RECORDS SUMMARY | 2025-01-01 14:49 | XMS_ITS | Patient Health Record ---
Author Organization [facility] Address [address] [place] [address] Support Name Relationship Address Phone ERIN KATELYN Guarantor Unknown [phone] Allergies Allergen (clinical drug ingredient) Drug/Non Drug Allergy documented on EMR Reaction Allergy Type Onset Date Status motrin (uncoded)UnknownAllergyActiveamoxicillinamoxicillinUnknownDrug Allergy Active Reason For Referral No Information Social History Tobacco Use: Social History Observation Description Date Details (start date - stop date) Never Smoker NA - NA Smoking History Question Answer Notes Smoking Status NonSmoker Problems Problem Type SNOMED Code ICD Code Onset Dates Problem Status W/U Status Risk Notes Problem 46642052102201915 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) YjhcpjspiqinzzkCcwcaev992583014Ohvuwjnjhj aseptic necrosis of left femur (M87.052)Activeconfirmed Plan Of Treatment Pending Test Test Name Order Date MRI : Hip Right without - 03152 02/15/20 23 [facility]- HIP W/ PELVIS, LEFT 12122 3 [facility]- HIP W/ PELVIS, RIGHT 74571 02/15/20 23 MRI : Hip Left without - 02382 3 Insurance Providers Payer Name Payer Address Payer Phone Subscriber Number Group Number Insured Name Patient Relationship to Insured Coverage Start Date Coverage End Date [facility] [address] [place] [address] [id number] Meenakshi KHAN - patient is the [id number] 2022Medicaid [facility] [address] [place] [id number], PAMELASelf - patient is the insured Medical (General) History Medical History History ICD Code Asthma/COPD Respiratory problems:Uterine cancerHeart problems:SeizuresDiabetesHigh Blood PressureDepressionAnxietyKidney troubleSleep apneaCPAP Machine:Do you use the CPAP machine? YesDrug Allergies
--- OUTSIDE RECORDS SUMMARY | 2025-01-01 14:50 | XMS_ITS ---
Author Organization [facility] Address [id number] [address] [place] [address] Care Team Providers Care Woodwinds Teacher Name Role Phone Services, [facility] Primary Care Provider Active Problems ProblemNoted DateDiagnosed DateUmbilical mdehus7603/09/2024Gastroenteritis 03/09/2024Other nyqfxita93/12/2023Pathological fracture of thoracic vertebra due to secondary irgyeqhnvkoh05/25/2022athological fracture of lumbar vertebra due to secondary bcuggdrwxnxp01/25/2022Age-related osteoporosis with current pathological svyykodm52/25/4458Laci96/24/2022Other cirrhosis of liver03/19/2021 Orbital contusion, left, bbdwveq0004/07/2020Fall (on) (from) other stairs and steps, initial /04/2021Injury of nose04/03/2020Injury of left foot 04/03/2020Injury of right foot04/03/20205174Wdsorgl46/28/2020Acute cystitis with jbrevtpyd07/28/8342Njnhpvyiwpglh17/07/2020Obesity (BMI 30.0-34.9)10/04/2019 Endometrial cancer determined by uterine ltmqml4309/25/2019 Cancer Staging: Clinical stage from 10/19/2019:FIGO Stage IIIA(cT3a, cN0, cM0) - Signed by SERGO Ortiz on 10/19/2019 FORIEGN on CPAP09/06/2019Moderate persistent asthma without vjfhbxdayfxn26/09/2020 Yyidscld87/25/2020Gastroesophageal reflux disease without ribkwhurshq49/08/2019 Cervical tnyibrvwwn31/17/2018Cervical spondylosis without anjgrvjwwz16/17/2018 Stenosis of cervical spine03/16/2017Spondylosis without myelopathy or radiculopathy, lumbar iivrpz7307/28/2016Spondylosis without myelopathy or radiculopathy, lumbosacral fmqgqh8707/28/20165812Ocnabiwopxkyahao20/19/2017Essential hypertension, benignChronic kidney diseaseDiabetes mellitus type 2, controlled Dyslipidemia Current Treatment and Therapy Plans ADULT ONCOLOGY/INFUSION CENTER FLUSH ORDERS* Plan Start Date:09/03/2021 Plan Provider:SERGO Conway Linked Problems Endometrial cancer determine d by uterine biopsy ([facility]) Treatment Medications No medications scheduled. Past Treatment and Therapy Plans Plan NameStart DateDiscontinue DateTreatment MedicationsDiscontinue ReasonPlan ProviderADULT ONCOLOGY/INFUSION CENTER FLUSH ORDERS/No medications scheduled.OtherAntonietta Conwayrt DateDiscontinue Date Treatment MedicationsDiscontinue ReasonPlan ProviderONCOLOGY STANDING ELECTROLYTE REPLACEMENT/09/2022No medications scheduled.Therapy Complete Antonietta Conwayrt DateDiscontinue DateTreatment Medications Discontinue ReasonPlan ProviderCyclesOP uterine CISplatin / UGPDsvcpfg97/18/2020 04/07/2022* CISplatin (PLATINOL) chemo IVPB piggyback * PACLItaxel (TAXOL) chemo IVPB piggyback Therapy CompleteSERGO Conway4 of 4 cycles startedOP uterine PACLitaxel / CARBOplatin* CARBOplatin (PARAPLATIN) chemo IVPB (by AUC) piggyback * PACLItaxel (TAXOL) chemo IVPB piggyback Not ToleratedSERGO Conway2 of 6 cycles started Lifetime Dose Tracking * ChemicalLifetime DoseAutomatic EntryManual HtmslAofwycjfkej933.81 aBq074.81 mGy0 mGy Resolved Problems ProblemNoted DateDiagnosed DateResolved DateAbnormal x-ray of facial bones Uterine flleav27/0068Shfygqvrzu57/25/2020 12/26/20197801Obobofchgce54/29/Dry mouthThroat painHoarseness07/Other yibeywahn10/17/2018 12/26/2019Visit for screening rytfnitpl97COPD (chronic obstructive pulmonary disease)11/01/2019
--- OUTSIDE RECORDS SUMMARY | 2025-01-01 14:50 | XMS_ITS | Clinical Summary ---
Author Organization BriefCam tem Address [id number] [address] [place] [address] Care Team Providers Care Legal Clerk Name Role Phone Services, [facility] Primary Care Provider Allergies Active AllergyReactionsCriticalityNoted DateCommentsAlbuterolHeadacheLow 07/09/20166151UsehivdnisLjtwhbaxtheKegp40/22/2022logliptin BenzoateAnaphylaxisHigh 04/21/20213806FrhemjbzydfXsrnbfhsEecp76/12/2017 Throat swelling Amoxicillin XodvzegkltOqxsotxwdwoJayr05/12/2023Amoxicillin-Pot Clavulanate OzcasphzAndq89/12/2017 THROAT AND TONGUE SWELLING Clavulanic OrrkCnmeuetbqgjKsso53/22/2022EmpagliflozinNausea And Vomiting 01/16/20204498CziyidzwyoSejjwcdmCjnk09/12/2017 THROAT AND TONGUE SWELLING IbuprofenOther (See Comments)High07/09/2016 COAGULATION DISORDER Potassium FdhxzirkmarYekhioiofdeIaal06/12/4849NigvpyvlqlUrpxfJragzy48/12/2017 Vkottgebjwt60/04/2025 Medications MedicationSigDispense QuantityRefillsLast FilledStart DateEnd DateStatus glipiZIDE (GLUCOTROL) 5 mg tablet Indications:type 2 diabetes mellitusTake 1 tablet (5 mg total) by mouth in the morning and 1 tablet (5 mg total) in the evening. Take before meals. Indications: type 2 diabetes mellitus.Active loperamide (IMODIUM) 2 mg capsule Indications:Diarrhea, unspecified typetake 1 capsule by mouth four times a day if needed for diarrhea 30 capsule 2Active brexpiprazole (REXULTI) 2 mg tablet Take 1 tablet (2 mg total) by mouth.5Active traZODone (DESYREL) 50 mg tablet Take 1 tablet (50 mg total) by mouth nightly as needed for sleep.03/13/2024 Active insulin glargine (LANTUS) 100 unit/mL injection Inject under the skin nightly.Active atorvastatin (LIPITOR) 40 mg tablet Take 1 tablet (40 mg total) by mouth in the morning.Active FLUoxetine (PROzac) 10 mg capsule Take 1 capsule (10 mg total) by mouth in the morning.Active omeprazole (PriLOSEC) 40 mg capsule Take 1 capsule (40 mg total) by mouth in the morning and at bedtime for 60 days. 60 capsule 5Active sucralfate (CARAFATE) 1 gram tablet Take 1 tablet (1 g total) by mouth 4 (four) times a day. 120 tablet 5Active sod sulf-pot chloride-mag sulf 1.479-0.188- 0.225 gram tablet Indications:Diarrhea, unspecified typePlease see instructional sheet given by physicians office. 24 tablet Discontinued(Therapy completed) Active Problems ProblemNoted DateDiagnosed DateUmbilical lmiswg6103/09/2024Gastroenteritis 03/09/2024Other vintnpbd97/12/2023Pathological fracture of thoracic vertebra due to secondary etwaxhguorae62/25/2022athological fracture of lumbar vertebra due to secondary azxrikaaonfw66/25/2022ge-related osteoporosis with current pathological dplzbche43/25/3926Bndd02/24/2022Other cirrhosis of liver03/19/2021 Orbital contusion, left, hjnftoh6504/07/2020Fall (on) (from) other stairs and steps, initial minjfrvsq59/04/2021Injury of nose04/03/2020Injury of left foot 04/03/2020Injury of right foot04/03/20206431Eyxnifv38/28/2020Acute cystitis with azluzqked18/28/4535Dtqbyicvtatkb38/07/2020Obesity (BMI 30.0-34.9)10/04/2019 Endometrial cancer determined by uterine xrnsat9409/25/2019 Cancer Staging: Clinical stage from 10/19/2019:FIGO Stage IIIA(cT3a, cN0, cM0) - Signed by SERGO Ortiz on 10/19/2019 FOREIGN on CPAP09/06/2019Moderate persistent asthma without lavkvhspeiza44/09/2020 Gmwbxguj29/25/2020Gastroesophageal reflux disease without jfvrmdciueq48/08/2019 Cervical fxdijiavmg66/17/2018Cervical spondylosis without bjlzglvocn32/17/2018 Stenosis of cervical spine03/16/2017Spondylosis without myelopathy or radiculopathy, lumbar ciacbr9207/28/2016Spondylosis without myelopathy or radiculopathy, lumbosacral hweqzn5907/28/20160048Xjepyiyprgdwcefw67/19/2017Essential hypertension, benignChronic kidney diseaseDiabetes mellitus type 2, controlled Dyslipidemia Resolved Problems ProblemNoted DateDiagnosed DateResolved DateAbnormal x-ray of facial bones /Uterine eojxhw10Hemoptysis04/24/2019 12/26/20192170Pymgahkqkaa59Dry mouthThroat painHoarsenessOther lhfiimxtr65/17/2018 12/26/2019Visit for screening agngtcvrr55COPD (chronic obstructive pulmonary disease)11/01/2019 Encounters DateTypeDepartmentCare YmlvNeoujxhzzrk50/14/2025Results Follow-Up [facility] - Surgery [address] [place] [address] Rivera Rivera, DO Surgical Mnggyvglw96/12/2025Refill [facility] [address] [place] [address] Rivera Rivera DO 12/06/2024Telephone [facility] [address] [place] [address] Marlee Voss CMA 12/05/2024 11:37 AM EDT - 12/05/2024 4:04 PM EDTEmergency [facility] - Emergency [address] [place] [address] Vic Valles MD Bradycardia (Primary Dx) Discharge Disposition: Left Against Medical Advice or Discontinued Care 12/05/20246409Pzooii78/06/2025 8:30 AM EDT - 12/03/2024 9:00 AM EDTSurgery [facility] - Surgery [address] [place] [address] Rivera Rivera, DO COLONOSCOPY DIAGNOSTIC / SCREENING [70902 (CPT??)]12/03/2024 8:29 AM EDT Anesthesia Event [facility] - Surgery [address] [place] [address] Sarbjit Lua MD Reynolds, Vern D, DO 12/03/2024 6:21 AM EDT - 12/03/2024 9:18 AM EDTHospital Encounter [facility] - Surgery [address] [place] [address] Rivera Rivera, DO Generalized abdominal pain (Primary Dx); Polyp of splenic flexure of colon Discharge Disposition: Home12/03/2024Telephone [facility] [address] [place] [address] Trinidad Washington RMA 12/03/20248272Bjweyr70/30/2025 3:30 PM EDTSupport Visit [facility] - Pre Admit [address] [place] [address] 11/27/2024Telephone [facility] Tish De La Fuente CMA Re-establish Care11/09/2024Results Follow-Up [facility] - Surgery [address] [place] [address] Rivera Rivera, DO Surgical Pathology, Bedside Glucose *Place/Obtain serum glucose if >500 per glucometer.11/05/2024 9:30 AM EDT - 11/05/2024 10:15 AM EDTSurgery [facility] - Surgery [address] [place] [address] Rivera Rivera, DO ESOPHAGOGASTRODUODENOSCOPY DIAGNOSTIC [61426 (CPT??)]11/05/2024 9:27 AM EDT Anesthesia Event [facility] - Surgery [address] [place] [address] Sarbjit Lua MD 11/05/2024 7:24 AM EDT - 11/05/2024 10:35 AM EDTHospital Encounter [facility] - Surgery [address] [place] [address] Rivera Rivera, DO Superficial gastritis without hemorrhage, unspecified chronicity (Primary Dx); Esophagitis; Diverticulosis Discharge Disposition: Home11/05/2024Results Follow-Up [facility] [address] [place] [address] abdomen and pelvis with ewybbbrz07/08/4213Rtshvu35/02/2025 3:00 PM EDTSupport Visit [facility] - Pre Admit [address] [place] [address] 10/30/2024 8:00 AM EDT - 10/30/2024 11:59 PM EDTHospital Encounter [facility] - CT Imaging [address] [place] [address] Yodit Cuba, VULCANIZER RUBBER PLATE-SILVERLIGHT DEVELOPER RLQ abdominal pain Discharge Disposition: Home10/30/20241925Xhrjhb07/20/2025 2:30 PM EDTOffice Visit [facility] [address] [place] [address] Yodit Cuba APRN-CNP Vomiting, unspecified vomiting type, unspecified whether nausea present (Primary Dx); Periumbilical abdominal pain; Diarrhea, unspecified type; Black stools; RLQ abdominal pain10/17/20248381Aglobt08/18/2025Telephone [facility] [address] [place] [address] Yodit Cuba APRN-CNP 10/01/2024 8:30 AM EDTOffice Visit Mckenzie Macias [facility] - Medical Oncology [address] [place] [phone] Laure Ackerman APRN-CNP Endometrial cancer determined by uterine biopsy ([facility]) (Primary Dx); Thrombocytopenia; Other cirrhosis of liver (CMS-HCC); Endometrial carcinoma ([facility]); Xystcberwvmqhcudbw26/04/2025Travelfrom Last 3 Months Immunizations ImmunizationAdministration DatesNext DueInfluenza (IM) Preservative Free 10/11/2016,11/24/2015Influenza, Im Trivalent Dlgdsuxrthsd15/24/2014Influenza, Injectable, quadrivalent (PF)12/31/2019 Family History * Patient is adopted Medical HistoryRelationNameCommentsEndometrial cancerDaughterMaria garza Ovarian cancerDaughterMaria esquivelUterine cancerDaughterMaria esquivelCOPD FatherDiabetesFatherHeart diseaseFatherStrokeFatherOvarian cancerSisterPamela LopezCystic fibrosisSonAnesthesia problemsNeg HxBreast cancerNeg HxRelationName StatusCommentsDaughterMaria esquivelFatherDeceasedSisterPamela LopezSon Social History Tobacco UseTypesPacks/DayYears UsedDateSmoking Tobacco: NeverSmokeless Tobacco: Never Tobacco Cessation:Counseling Given: Not Answered Alcohol UseStandard Drinks/WeekCommentsNo0 (1 standard drink = 0.6 oz pure alcohol)[facility] UtilitiesAnswerDate RecordedIn the past 12 months has the electric, gas, oil, or water company threatened to shut off services in your home?No 03/09/2024Social Connection and Isolation PanelAnswerDate RecordedIn a typical week, how many times do you talk on the phone with family, friends, or neighbors?Three times a week03/07/2022How often do you get together with friends or relatives?Twice a week03/07/2022How often do you attend confucianism or jain services?Never03/07/2022o you belong to any clubs or organizations such as confucianism groups, unions, fraternal or athletic groups, or school groups?No 03/07/2022How often do you attend meetings of the clubs or organizations you belong to?Never03/07/2022re you , , , , never , or living with a partner?Ybtjulxwt22/08/2023UDIT-CAnswerDate Recorded Q1: How often do you have a drink containing alcohol?Never03/07/2022Q2: How many drinks containing alcohol do you have on a typical day when you are drinking? Patient does not drink03/07/2022Q3: How often do you have six or more drinks on one occasion?Never03/07/2022Overall Financial Resource Strain (CARDIA)AnswerDate RecordedHow hard is it for you to pay for the very basics like food, housing, medical care, and heating?Not hard at all03/07/2022HQ-2AnswerDate RecordedTotal Ygprx141Finutah state hospital [facility] of Occupational Health - Occupational Stress QuestionnaireAnswerDate RecordedDo you feel stress - tense, restless, nervous, or anxious, or unable to sleep at night because yourmind is troubled all the time - these days?Very much03/07/2022Exercise Vital SignAnswerDate RecordedOn average, how many days per week do you engage in moderate to strenuous exercise (like a brisk walk)?7 days03/07/2022On average, how many minutes do you engage in exercise at this level?40 min03/07/2022RAPARE - TransportationAnswerDate RecordedIn the past 12 months, has lack of transportation kept you from medical appointments or from getting medications?No03/09/2024In the past 12 months, has lack of transportation kept you from meetings, work, or from getting things needed for daily living?No03/09/2024Housing InstabilityAnswerDate RecordedAre you worried or concerned that in the next two months you may not have stable housing that you own, rent or stay in as a part of a household?No03/09/2024 ChildcareAnswerDate RecordedDo problems getting child abuse worker make it difficult for you to work or study?No03/07/2022EmploymentAnswerDate RecordedDo you need help finding a local career center and/or a training program?No03/07/2022Hunger ScreeningAnswerDate RecordedWithin the past 12 months we worried whether our food would run out before we got money to buy more.Never True12/05/2024Within the past 12 months the food we bought just didn't last and we didn't have money to get more.Never True12/05/2024Purpose - LifeAnswerDate RecordedI have a purpose and direction in my life.Strongly Agree03/07/2022EducationAnswerDate RecordedWhat is the highest level of school you have completed or the highest degree you have received?12th grade03/07/2022CommentsNoSex and Gender InformationValueDate RecordedSex Assigned at BirthNot on fileLegal SexFemale 10/03/2014 11:28 AM EDTGender IdentityNot on fileSexual OrientationNot on file Last Filed Vital Signs Vital SignReadingTime TakenCommentsBlood Pruztqll277/7410 3:04 PM EDT Rphdo139112/05/2024 3:04 PM EMYOmomhtsxwou38.8 ??C (98.2 ??F)12/05/2024 11:41 AM EDTRespiratory Zosv5284 3:04 PM EDTOxygen Vivkrrqzyp18%12/05/2024 3:04 PM EDTInhaled Oxygen Concentration--Nbexef99.5 kg (162 lb)12/05/2024 11:40 AM GWAOraqga364.1 cm (5' 5 )12/05/2024 11:40 AM EDTBody Mass Index26.9612/05/2024 11:40 AM EDT Plan of Treatment DateTypeDepartmentCare Team (Latest Contact Info)Uiamaiarnmc88/07/2025 10:00 AM ESTOffice Visit [facility] [address] [place] [address] Yodit Cuba, RUPALI-SILVERLIGHT DEVELOPER [address] [place], [place] [address] 01/07/2025 11:30 AM ESTAppointment [facility] - Mammography/DEXA Imaging [address] [place] [address] 01/22/2025 9:00 AM ESTOffice Visit [facility] [address] [place] [address] Gerardo Stevens MD [address], [place] [phone] Charly Poe DO [address] [place] [address] Health MaintenanceDue DateLast DoneCommentsDiabetic Ophthalmology Exam1965 Adult BMI Follow Up Plan12/20/1983Diabetic Foot Exam12/20/1983DTaP,Tdap and Td Vaccines (1 - Tdap)1984Zoster (Shingles) Vaccine (1 of 2)1984COVID- 19 Vaccine (3 - Moderna risk series)/, 1Depression Qnpjbltkp83/09/2022Influenza Ocfeybd17/03/2019, 10/11/2016, 11/24/2015, Additional history existsAdult BMI Fmjguxefv99 Tobacco Clurzkemm38 Goals GoalPatient Goal TypeAssociated ProblemsRecent ProgressPatient-Stated?Author Home with self care Christa Almeida, TITA Note: Evaluation of progress towards goal: Patient plans to return home with self care. Medical Devices ImplantedTypeAreaManufacturerDevice IdentifierShelf Expiration DateModel / Serial / LotCement Bn - [id number] - [id number] Implanted:Qty: 1 on 11/24/2021 [facility] Jr[facility]CementN/A: Spine Lumbaruse MDTR SPIN04/27/[id number] / [id number] / [id number] Pp Mri Duo 9.5fr - [id number] Implanted:Qty: 1 on 10/31/2019 [facility] Peripheral [id number] / / [id number]:ARTEM Russell Procedures Procedure NamePriorityDate/TimeAssociated DiagnosisCommentsTROP I, HIGH SENSITIVITY 1 ZRIRYFUN56/08/2025 1:13 PM EDT ECG 12-TNQWLUOE75/08/2025 12:18 PM EDTTROPONIN I, HIGH SENSITIVITY 0 HOURSTAT 12/05/2024 12:14 PM EDT TROPONIN I, HIGH SENSITIVITY 0 XRSVBROI18/08/2025 12:14 PM EDT DOVBCZMMKCOKK73/08/2025 12:14 PM EDT D-CALZAAAHZ38/08/2025 12:14 PM EDT OTGPLNZB91/08/2025 12:14 PM EDT PROTIME & ZDKBLBF2512/05/2024 12:14 PM EDT COMPREHENSIVE METABOLIC RUCLNZGPS09/08/2025 12:14 PM EDT EXTRA TUBES LAVENDER RCMIhluhhz64/08/2025 12:13 PM EDT EXTRA AELICFguphgq15/08/2025 12:13 PM EDT XR CHEST 1 UCQIPF4512/05/2024 12:02 PM EDT B-TYPE NATRIURETIC QUIYUKONVLC69/08/2025 11:55 AM EDT CBC WITH AUTO DZDDEWZRHRESOMGZ31/08/2025 11:55 AM EDT ECG 12-OBJEFHYC85/08/2025 11:42 AM EDTSURGICAL BWKRYHNJBEzxfsfc15/06/2025 8:38 AM EDT IN COLONOSCOPY FLX DX W/COLLJ SPEC WHEN PFRMD1 8:30 AM EDT black stools, diarrhea, periumbilical pain, incomplete prep on first attempt ECG 12-TRJWVXNG64/06/2025 7:20 AM EDT PJUOVYOHLUQ30/06/2025 7:10 AM EDT BEDSIDE LPMHWMSClukevo09/06/2025 7:05 AM EDT PROVATION UGQWFKYAAHLXbeuqnq22/06/2025 6:23 AM EDT NXDAGYHWJDT58/08/2025 9:37 AM EDT SURGICAL HKYHJBHHHWbzzgdf99/08/2025 9:32 AM EDT IN COLONOSCOPY FLX DX W/COLLJ SPEC WHEN PFRMD11/05/2024 9:29 AM EDT epigastric pain, black stools, diarrhea IN ESOPHAGOGASTRODUODENOSCOPY TRANSORAL PMNKPPGVDB89/08/2025 9:29 AM EDT epigastric pain, black stools, diarrhea EGD11/05/2024 9:26 AM EDT BEDSIDE JKZKYUCQahbscw24/08/2025 8:03 AM EDT PROVATION VQWZYVUPFKFUdnynsl62/08/2025 7:43 AM EDT PROVATION GMOTmgmovs34/08/2025 7:[address] ABDOMEN AND PELVIS W LEGPQfwdnve42/02/2025 9:11 AM EDT RLQ abdominal pain CREATININE, RFGJHXlirsfn37/02/2025 8:12 AM EDT RLQ abdominal pain from Last 3 Months Results * Troponin I, High Sensitivity 1 Hour (12/05/2024 1:13 PM EDT)ComponentValueRef RangeTest MethodAnalysis TimePerformed AtPathologist SignatureTROPONIN I, HIGH SENSITIVITY5<16 ng/L1 1:46 PM [facility] Specimen (Source)Anatomical Location / LateralityCollection Method / Volume Collection TimeReceived TimeBloodVenous blood / UnknownVenipuncture / Unknown 12/05/2024 1:13 PM EDT1 1:15 PM EDT Narrative Authorizing ProviderResult TypeResult StatusAmber Jay VULCANIZER RUBBER PLATE-CNPLAB BLOOD ORDERABLESFinal ResultPerforming OrganizationAddressCity/State/ZIP CodePhone Number [facility] [address] * Repeat ECG 12 lead (12/05/2024 12:18 PM EDT) Only the most recent of3 resultswithin the time period is included. Specimen (Source)Anatomical Location / LateralityCollection Method / Volume Collection TimeReceived Time12/05/2024 12:18 PM EDT Narrative Authorizing ProviderResult TypeResult StatusAmber Jay VULCANIZER RUBBER PLATE-CNPECG ORDERABLES Final ResultPerforming OrganizationAddressCity/State/ZIP CodePhone Number [facility] * Troponin I, High Sensitivity 0 Hour (12/05/2024 12:14 PM EDT)ComponentValueRef RangeTest MethodAnalysis TimePerformed AtPathologist SignatureTROPONIN I, HIGH SENSITIVITY6<16 ng/L1 12:56 PM [facility] Specimen (Source)Anatomical Location / LateralityCollection Method / Volume Collection TimeReceived TimeBloodVenous blood / UnknownVenipuncture / Unknown 12/05/2024 12:14 PM EDT1 12:20 PM EDT Narrative Authorizing ProviderResult TypeResult StatusAmber Jay VULCANIZER RUBBER PLATE-CNPLAB BLOOD ORDERABLESFinal ResultPerforming OrganizationAddressCity/State/ZIP CodePhone Number [address] [place] [address], [place] * APTT (12/05/2024 12:14 PM EDT)ComponentValueRef RangeTest MethodAnalysis Time Performed AtPathologist KonhydiikNEIX1499 - 37 sec12/05/2024 12:36 PM EDT [facility] (Source)Anatomical Location / LateralityCollection Method / VolumeCollection TimeReceived TimeBloodVenous blood / UnknownVenipuncture / Qqyxtqd4412/05/2024 12:14 PM EDT1 12:20 PM EDT Narrative Authorizing ProviderResult TypeResult StatusAmber Jay VULCANIZER RUBBER PLATE-CNPLAB BLOOD ORDERABLESFinal ResultPerforming OrganizationAddressCity/State/ZIP CodePhone Number [address] [place] [address], [place] * Protime & INR (12/05/2024 12:14 PM EDT)ComponentValueRef RangeTest Method Analysis TimePerformed AtPathologist KkgcjbzgiTSCYQZS46.89.8 - 13.2 sec 12/05/2024 12:36 PM EDUNIVERSITY HOSPITALS GEAUGA MEDICAL CENTERINR1.10.9 - 1.2 12/05/2024 12:36 PM ED[facility] (Source) Anatomical Location / LateralityCollection Method / VolumeCollection Time Received TimeBloodVenous blood / UnknownVenipuncture / Lyqgccg3112/05/2024 12:14 PM EDT1 12:20 PM EDT Narrative Authorizing ProviderResult TypeResult StatusAmber Thompson VULCANIZER RUBBER PLATE-CNPLAB BLOOD ORDERABLESFinal ResultPerforming OrganizationAddressCity/State/ZIP CodePhone Number [address] [place] [address], [place] * D-Dimer (12/05/2024 12:14 PM EDT)ComponentValueRef RangeTest MethodAnalysis TimePerformed AtPathologist SignatureD DIMER<1501 - 255 ng/mL12/05/2024 12:36 PM EDTPMARYMOUNT HOSPITALComment:Results <255 ng/mL DDU: The presensence of a VTE can safely be excluded with a negative D-Dimer result and Wells score. A negative result doesn't exclude the possibility of DIC. The test should berepeated along with other diagnostic tests if the patient's symptoms persist or worsen.Specimen (Source)Anatomical Location / Laterality Collection Method / VolumeCollection TimeReceived TimeBloodVenous blood / UnknownVenipuncture / Aappmql1112/05/2024 12:14 PM EDT1 12:20 PM EDT Narrative Authorizing ProviderResult TypeResult StatusAmber Thompson VULCANIZER RUBBER PLATELoom DecorLAB BLOOD ORDERABLESFinal ResultPerforming OrganizationAddressCity/State/ZIP CodePhone Number [address] [place] [address], * (ABNORMAL) Magnesium (12/05/2024 12:14 PM EDT)ComponentValueRef RangeTest MethodAnalysis TimePerformed AtPathologist SignatureMAGNESIUM1.5(L)1.8 - 2.6 mg/dL12/05/2024 12:47 PM EDSUMMA HEALTH AKRON CAMPUSpecimen (Source)Anatomical Location / LateralityCollection Method / VolumeCollection TimeReceived TimeBloodVenous blood / UnknownVenipuncture / Wmhbzor4212/05/2024 12:14 PM EDT1 12:20 PM EDT Narrative Authorizing ProviderResult TypeResult StatusAmber Jay VULCANIZER RUBBER PLATEUnited PreferenceCNPLAB BLOOD ORDERABLESFinal ResultPerforming OrganizationAddressty/State/ZIP CodePhone Number [address] [place] [address], * (ABNORMAL) Comprehensive metabolic panel (12/05/2024 12:14 PM EDT)Component ValueRef RangeTest MethodAnalysis TimePerformed AtPathologist SignatureSODIUM 231169 - 146 mmol/L1 12:47 PM [facility] POTASSIUM3.63.5 - 5.0 mmol/L1 12:47 PM [facility] CENTERCHLORIDE10498 - 109 mmol/L1 12:47 PM [facility] CENTERCARBON THXOCAC6069 - 32 mmol/L1 12:47 PM EDT PROMJ[facility]. [facility] HOSPITALANION GAP95 - 15 mmol/L1 12:47 PM EDUNIVERSITY HOSPITALS GEAUGA MEDICAL CENTERBLOOD UREA EEQUAPMX11 - 23 mg/dL 12/05/2024 12:47 PM [facility] CENTERCREATININE1.06(H) 0.40 - 1.00 mg/dL12/05/2024 12:47 PM [facility] Comment:METHOD TRACEABLE TO IDMS WMWWWRBLEPJZFMR746(H)65 - 99 mg/dL12/05/2024 12:47 PM [facility] CENTERCALCIUM8.78.5 - 10.5 mg/dL 12/05/2024 12:47 PM [facility] CENTERTOTAL PROTEIN6.56.0 - 8.0 g/dL12/05/2024 12:47 PM [facility] CENTERALBUMIN3.7 3.2 - 5.3 g/dL12/05/2024 12:47 PM [facility] ALKALINE BNXCOHFVMWL1760 - 130 U/L1 12:47 PM [facility]ENTERAST29<=41 U/L1 12:47 PM [facility]ENTERALT31<=31 U/L1 12:47 PM [facility] CENTERBILIRUBIN,TOTAL1.5(H)0.3 - 1.2 mg/dL12/05/2024 12:47 PM EDT [facility]GFR Non-Race Dgfuptupj27>=60 ml/min/1.73sq.m1 12:47 PM [facility] Comment: eGFR not reported due to non-numeric value for Creatinine. Reported eGFR is based on the CKD-EPI 2020 equation that does not use a race coefficient. Specimen (Source)Anatomical Location / LateralityCollection Method / Volume Collection TimeReceived TimeBloodVenous blood / UnknownVenipuncture / Unknown 12/05/2024 12:14 PM EDT1 12:20 PM EDT Narrative Authorizing ProviderResult TypeResult StatusElvia Thompson APRN-JFLAB BLOOD ORDERABLESFinal ResultPerforming OrganizationAddressCity/State/ZIP CodePhone Number [address] [place] [address], * Lavender Top (12/05/2024 12:13 PM EDT)ComponentValueRef RangeTest Method Analysis TimePerformed AtPathologist SignatureExtra TubeAuto Resulted 12/05/2024 2:02 PM EDTPROMEDICA AVALON MUNICIPAL HOSPITALpecimen (Source) Anatomical Location / LateralityCollection Method / VolumeCollection Time Received TimeBloodVenous blood / Kiixmdk4212/05/2024 12:13 PM EDT1 12:21 PM EDT Narrative Authorizing ProviderResult TypeResult StatusVic Valles MDNEWMAN REGIONAL HEALTH BLOOD ORDERABLES Final ResultPerforming OrganizationAddressCity/State/ZIP CodePhone Number [address] [place] [address], [place] * X-ray chest 1 view (12/05/2024 12:02 PM EDT)Anatomical RegionLaterality ModalityBody, ChestN/AComputed RadiographySpecimen (Source)Anatomical Location / LateralityCollection Method / VolumeCollection TimeReceived Time12/05/2024 12:05 PM EDT Narrative 12/05/2024 12:06 PM EDT Clinical history: Bradycardia. Comparisons: 08/24/2027 through 07/13/2023. Findings: Portable chest radiograph obtained 11:58 AM. Heart size and pulmonary vasculature appear within normal limits. Lungs appear clear. Defibrillator pads overlie the chest. No pleural effusion or pneumothorax. Upper lumbar kyphoplasty again seen. IMPRESSION: No evidence for acute cardiopulmonary disease. Finalized by Vincenzo Sharma MD on 12/05/2024 12:06 PM Procedure Note Vincenzo Sharma MD - 12/05/2024 Clinical history: Bradycardia. Comparisons: 08/24/2027 through 07/13/2023. Findings: Portable chest radiograph obtained 11:58 AM. Heart size andpulmonary vasculature appear within normal limits. Lungs appear clear.Defibrillator pads overlie the chest. No pleural effusion or pneumothorax.Upper lumbar kyphoplasty again seen. IMPRESSION: No evidence for acute cardiopulmonary disease. Finalized by Vincenzo Sharma MD on 12/05/2024 12:06 PM Authorizing ProviderResult TypeResult StatusAmber Thompson [employer]-CNPG DIAGNOSTIC IMAGING ORDERABLESFinal Result * (ABNORMAL) CBC auto differential (12/05/2024 11:55 AM EDT)ComponentValueRef RangeTest MethodAnalysis TimePerformed AtPathologist SignatureWBC5.74 - 11 x10E9/L1 12:17 PM [facility] Count4.55 3.8 - 5.2 X10E12/L1 12:17 PM [facility] Uoeorqjhat35.511.7 - 15.5 g/dL12/05/2024 12:17 PM [facility]ENTERHematocrit41.735 - 47 %12/05/2024 12:17 PM [facility]ENTERMCV9280 - 100 fL12/05/2024 12:17 PM EDUN[facility]ENTERMCH31.927 - 34 pg12/05/2024 12:17 PM [facility]ENTERMCHC34.832 - 36 g/dL12/05/2024 12:17 PM [facility]ENTERRDW13.911.5 - 15 %12/05/2024 12:17 PM [facility] CENTERPlatelet Eoezc797(L)150 - 450 X10E9/L1 12:17 PM [facility]ENTERMPV10.67 - 12 fL12/05/2024 12:17 PM EDTPMARYMOUNT HOSPITALNeutrophils %44.1%12/05/2024 12:17 PM EDUNIVERSITY [facility] GEAU[facility] MEDICAL CENTERLymphocytes %48.9%12/05/2024 12:17 PM EDTPSELECT [facility] HOSPITALMonocytes %4.4%12/05/2024 12:17 PM EDT [facility] HOSPITALEosinophils %1.2%12/05/2024 12:17 PM EDT [facility] %1.4%12/05/2024 12:17 PM EDT [facility]ITALNeutrophils Absolute (A)2.51.5 - 6.6 10*3/uL12/05/2024 12:17 PM EDTPMARYMOUNT HOSPITALLymphocytes Absolute2.81.0 - 3.5 10*3/uL12/05/2024 12:17 PM EDTPSELECT [facility] HOSPITALMonocytes Absolute0.30.0 - 0.9 10*3/uL12/05/2024 12:17 PM EDTPMARYMOUNT HOSPITALEosinophils Absolute0.10.0 - 0.4 10*3/uL12/05/2024 12:17 PM EDUNIVERS[facility] CENTERBasophils Absolute0.10.0 - 0.2 10*3/uL12/05/2024 12:17 PM [facility] CENTERDifferential TypeAUTOMATED SHMDGCBXQGAB99/08/2025 12:17 PM [facility]pecimen (Source)Anatomical Location / LateralityCollection Method / VolumeCollection TimeReceived TimeBloodVenous blood / UnknownVenipuncture / Pfxletq5712/05/2024 11:55 AM EDT1 11:58 AM EDT Narrative Authorizing ProviderResult TypeResult StatusAmber Jay VULCAN[employer] RUBB[employer] PLATE-CNPLAB BLOOD ORDERABLESFinal ResultPerforming OrganizationAddressCity/State/ZIP CodePhone Number [facility] [address] [place] [address], [place] * B-type natriuretic peptide (12/05/2024 11:55 AM EDT)ComponentValueRef Range Test MethodAnalysis TimePerformed AtPathologist PdeyllosfTBV19<=100 pg/mL 12/05/2024 12:52 PM EDTPROMED[facility]AL HOSPITALpecimen (Source) Anatomical Location / LateralityCollection Method / VolumeCollection Time Received TimeBloodVenous blood / UnknownVenipuncture / Ejlmobd0612/05/2024 11:55 AM EDT1 11:58 AM EDT Narrative Authorizing ProviderResult TypeResult StatusAmber Thompson VULCAN[employer] RUBB[employer] PLATE-CNPLAB BLOOD ORDERABLESFinal ResultPerforming OrganizationAddressCity/State/ZIP CodePhone Number [facility] [address] [place] [address], * Surgical Pathology (12/03/2024 8:38 AM EDT) Only the most recent of2 resultswithin the time period is included. ComponentValueRef RangeTest MethodAnalysis TimePerformed AtPathologist Signature Case ReportSurgical Pathology Report ? Case: [id number] ? Authorizing Provider: ??Rivera Rivera DO ?Collected: ? 12/03/2024 0838 ? Ordering Location: ? [facility] ? Received: ?12/03/2024 1158 ? [facility] - Surgery ? Pathologist: ? Blanca Schumacher MD ? Specimen: ?Colon, splenic flexure polyp ? 12/10/2024 1:35 PM [facility] LABFinal DiagnosisSplenic flexure polypectomy: Tubular adenoma.12/10/2024 1:35 PM [facility] at 1335 EDTGross DescriptionReceived in formalin labeled with the patient's name, medical record number, and splenic flexure polyp is a 0.4 x 0.2 x 0.1 cm white-smith tissue fragment, which is submitted intact as 1A. (1, ns, [id number], m1) SB12/10/2024 1:35 PM [facility] LABORATORYEmbedded Frplsz1012/10/2024 1:35 PM [facility] LABSpecimen (Source)Anatomical Location / LateralityCollection Method / VolumeCollection TimeReceived TimeTissueColon structure / Plyhhup2812/03/2024 8:38 AM EDT1 11:58 AM EDTComment:Pre-op diagnosis: black stools, diarrhea, periumbilical pain, incomplete prep on first attempt Narrative Authorizing ProviderResult TypeResult StatusMichaemartha Rivera DO PATHOLOGY/CYTOLOGY ORDERABLESFinal ResultPerforming OrganizationAddress City/State/ZIP CodePhone Number [facility] [address] [place] [address], [facility] [address] [place] [address], * Colonoscopy (12/03/2024 7:10 AM EDT)Specimen (Source)Anatomical Location / LateralityCollection Method / VolumeCollection TimeReceived Time12/03/2024 7:10 AM EDT Narrative CARDIOVASCULAR - 12/03/2024 8:44 AM EDT [facility] Patient Name: Madhavi Easton ?? Procedure Date No Time: 12/03/2024 ?? CSN : [id number] Date of : 1965 Admit Type: Outpatient Age: 58 Room: [place] [address] Gender: Female Note Status: Finalized Attending MD: Rivera Rivera DO, Procedure: ? Colonoscopy Indications: ? Generalized abdominal pain, Abdominal pain in the ? right lower quadrant Providers: ? Rivera Rivera DO Referring MD: ?Rivera Rivera DO Medicines: ? Propofol per Anesthesia Complications: ? No immediate complications. Procedure: ? After I obtained informed consent, the scope was ? passed under direct vision. Throughout the procedure, ? the patient's blood pressure, pulse, and oxygen ? saturations were monitored continuously. The OLYMNPUS ? -[id number] #[id number] ADULT COLONOSCOPE was introduced ? through the anus with the intention of advancing to ? the cecum. The scope was advanced to the transverse ? colon before the procedure was aborted. Medications ? were given. The colonoscopy was technically difficult ? and complex due to inadequate bowel prep. The patient ? tolerated the procedure well. The quality of the bowel ? preparation was poor. Findings: ? The perianal and digital rectal examinations were normal. ? A 5 mm polyp was found in the splenic flexure. The polyp was sessile. ? The polyp was removed with a cold snare. Resection and retrieval were ? complete. ? The exam was otherwise without abnormality. ? Only normal to transverse colon but it was a very poor prep and pay ? patient we will need to return again with 2 days of clear liquids and ? another bowel prep instead of MiraLax and Gatorade which did not work ? this time and I am not sure which 1 she took previously. She should not ? try either 1 of those and try a new were 1. Estimated Blood Loss: ??Estimated blood loss: none. Impression: ?- Preparation of the colon was poor. ? - One 5 mm polyp at the splenic flexure, removed with ? a cold snare. Resected and retrieved. ? - The examination was otherwise normal. Recommendation: ?- Discharge patient to home. ? - Patient has a contact number available for ? emergencies. The signs and symptoms of potential ? delayed complications were discussed with the patient. ? Return to normal activities tomorrow. Written ? discharge instructions were provided to the patient. ? - Repeat colonoscopy in 1 month because the bowel ? preparation was suboptimal. ? - Return to my office PRN. Procedure Code(s): ? --- Professional --- ? 81002, 52, Colonoscopy, flexible; with removal of ? tumor(s), polyp(s), or other lesion(s) by snare ? technique Diagnosis Code(s): ? --- Professional --- ? D12.3, Benign neoplasm of transverse colon (hepatic flexure or splenic ? flexure) ? R10.84, Generalized abdominal pain ? R10.31, Right lower quadrant pain CPT copyright 2022 [employer] [employer]. All rights reserved. The codes documented in this report are preliminary and upon reefer engineer review may be revised to meet current compliance requirements. DO Rivera Guadalupe DO 12/03/2024 8:44:07 AM Number of Addenda: 0 Note Initiated On: 12/03/2024 7:10 AM Procedure Note Rivera Rivera DO - 12/03/2024 [facility] Patient Name: Madhavi Easton Procedure Date No Time: 12/03/2024 CSN : [id number] Date of : 1965 Admit Type: Outpatient Age: 58 Room: [place] [address] Gender: Female Note Status: Finalized Attending MD: Rivera Rivera DO, Procedure: Colonoscopy Indications: Generalized abdominal pain, Abdominal pain in the right lower quadrant Providers: Rivera Rivera DO Referring MD: Rivera Rivera DO Medicines: Propofol per Anesthesia Complications: No immediate complications. Procedure: After I obtained informed consent, the scope was passed under direct vision. Throughout theprocedure, the patient's blood pressure, pulse, and oxygen saturations were monitored continuously. [email or web address]. CF-HS653S #[id number] ADULT COLONOSCOPE was introduced through the anus with the intention of advancing to the cecum. The scope was advanced to the transverse colon before the procedure was aborted. Medications were given. The colonoscopy was technicallydifficult and complex due to inadequate bowel prep. Thepatient tolerated the procedure well. The quality of thebowel preparation was poor. Findings: The perianal and digital rectal examinations were normal. A 5 mm polyp was found in the splenic flexure. The polyp was sessile. The polyp was removed with a cold snare. Resection and retrieval were complete. The exam was otherwise without abnormality. Only normal to transverse colon but it was a very poor prep and pay patient we will need to return again with 2 days of clear liquids and another bowel prep instead of MiraLax and Gatorade which did not work this time and I am not sure which 1 she took previously. She shouldnot try either 1 of those and try a new were 1. Estimated Blood Loss: Estimated blood loss: none. Impression: - Preparation of the colon was poor. - One 5 mm polyp at the splenic flexure, removedwith a cold snare. Resected and retrieved. - The examination was otherwise normal. Recommendation: - Discharge patient to home. - Patient has a contact number available for emergencies. The signs and symptoms of potential delayed complications were discussed with thepatient. Return to normal activities tomorrow. Written discharge instructions were provided to thepatient. - Repeat colonoscopy in 1 month because the bowel preparation was suboptimal. - Return to my office PRN. Procedure Code(s): --- Professional --- 92189, 52, Colonoscopy, flexible; with removal of tumor(s), polyp(s), or other lesion(s) by snare technique Diagnosis Code(s): --- Professional --- D12.3, Benign neoplasm of transverse colon (hepatic flexure orsplenic flexure) R10.84, Generalized abdominal pain R10.31, Right lower quadrant pain CPT copyright 2022 [employer] [place] [employer]. All rights reserved. The codes documented in this report are preliminary and upon reefer engineer reviewmay be revised to meet current compliance requirements. DO Rivera Guadalupe DO 12/03/2024 8:44:07 AM Number of Addenda: 0 Note Initiated On: 12/03/2024 7:10 AM Authorizing ProviderResult TypeResult Teresa Rivera DOGI PROCEDURE ORDERABLESFinal ResultPerforming OrganizationAddressCity/State/ZIP CodePhone Number PM CARDIOVASCULAR * (ABNORMAL) Bedside Glucose *Place/Obtain serum glucose if >500 per glucometer. (12/03/2024 7:05 AM EDT) Only the most recent of2 resultswithin the time period is included. ComponentValueRef RangeTest MethodAnalysis TimePerformed AtPathologist Signature Bedside Glucose (POC)199(H)65 - 99 mg/dL12/03/2024 7:09 AM EDTPOHIO STATE UN[facility] CENTERpecimen (Source)Anatomical Location / LateralityCollection Method / VolumeCollection TimeReceived Timearterial/notivzqxh86/06/2025 7:05 AM EDT1 7:09 AM EDT Narrative Authorizing ProviderResult MargarethResult Teresa Rivera DOPOINT OF CARE TEST ORDERABLESFinal ResultPerforming OrganizationAddressCity/State/ZIP Code Phone Number [facility] [address] [place] [address], * Colonoscopy Report (12/03/2024 6:23 AM EDT) Only the most recent of2 resultswithin the time period is included. Specimen (Source)Anatomical Location / LateralityCollection Method / Volume Collection TimeReceived Time Narrative SYSTEMGENERATED, DOCUMENTATION - 12/03/2024 6:23 AM EDT This order has been auto-finalized for image and report archival in PACs. *For full report details, please reach out to your physician. ??This image is visible to you in MyChart.* Authorizing ProviderResult TypeResult StatusMicluther Rivera DOI OR IMG ORDERABLESFinal Result * Colonoscopy (11/05/2024 9:37 AM EDT)Specimen (Source)Anatomical Location / LateralityCollection Method / VolumeCollection TimeReceived Time11/05/2024 9:37 AM EDT Narrative PM CARDIOVASCULAR - 11/05/2024 9:53 AM EDT [facility] Patient Name: Mahdavi Easton ?? Procedure Date No Time: 11/05/2024 ?? CSN : [id number] Date of : 1965 Admit Type: Outpatient Age: 58 Room: [place] [address] Gender: Female Note Status: Finalized Attending MD: Rivera Rivera DO, Procedure: ? Colonoscopy Indications: ? Abdominal pain in the right lower quadrant Providers: ? Rivera Rivera DO Referring MD: ?Rivera Rivera DO Medicines: ? Propofol per Anesthesia Complications: ? No immediate complications. Procedure: ? After I obtained informed consent, the scope was ? passed under direct vision. Throughout the procedure, ? the patient's blood pressure, pulse, and oxygen ? saturations were monitored continuously. The OLYMPUS ? CF-190L # [id number] ADULT COLONOSCOPE was introduced ? through the anus and advanced to the cecum, identified ? by appendiceal orifice and ileocecal valve. The ? colonoscopy was technically difficult and complex due ? to inadequate bowel prep. The patient tolerated the ? procedure well. The quality of the bowel preparation ? was inadequate. Findings: ? The perianal and digital rectal examinations were normal. ? Multiple large-mouthed and medium-mouthed diverticula were found in the ? sigmoid colon and descending colon. ? The exam was otherwise without abnormality. Estimated Blood Loss: ??Estimated blood loss: none. Impression: ?- Preparation of the colon was inadequate. ? - Diverticulosis in the sigmoid colon and in the ? descending colon. ? - The examination was otherwise normal. ? - No specimens collected. Recommendation: ?- Discharge patient to home. ? - Patient has a contact number available for ? emergencies. The signs and symptoms of potential ? delayed complications were discussed with the patient. ? Return to normal activities tomorrow. Written ? discharge instructions were provided to the patient. ? - High fiber diet for the rest of the patient's life. ? - Repeat colonoscopy in 1 month because the bowel ? preparation was poor. ? - Return to my office PRN. Procedure Code(s): ? --- Professional --- ? 73295, Colonoscopy, flexible; diagnostic, including ? collection of specimen(s) by brushing or washing, when ? performed (separate procedure) Diagnosis Code(s): ? --- Professional --- ? K57.30, Diverticulosis of large intestine without perforation or abscess ? without bleeding ? R10.31, Right lower quadrant pain CPT copyright 2022 [employer] [place] [employer]. All rights reserved. The codes documented in this report are preliminary and upon reefer engineer review may be revised to meet current compliance requirements. DO Rivera Guadalupe DO 11/05/2024 9:52:48 AM Number of Addenda: 0 Note Initiated On: 11/05/2024 9:37 AM Procedure Note Rivera Rivera DO - 11/05/2024 [facility] Patient Name: Madhavi Easton Procedure Date No Time: 11/05/2024 CSN : [id number] Date of : 1965 Admit Type: Outpatient Age: 58 Room: [place] [address] Gender: Female Note Status: Finalized Attending MD: Rivera Rivera DO, Procedure: Colonoscopy Indications: Abdominal pain in the right lower quadrant Providers: Rivera Rivera DO Referring MD: Rivera Rivera DO Medicines: Propofol per Anesthesia Complications: No immediate complications. Procedure: After I obtained informed consent, the scope was passed under direct vision. Throughout theprocedure, the patient's blood pressure, pulse, and oxygen saturations were monitored continuously. [employer] CF-190L # [id number] ADULT COLONOSCOPE was introduced through the anus and advanced to the cecum,identified by appendiceal orifice and ileocecal valve. The colonoscopy was technically difficult and complexdue to inadequate bowel prep. The patient tolerated the procedure well. The quality of the bowelpreparation was inadequate. Findings: The perianal and digital rectal examinations were normal. Multiple large-mouthed and medium-mouthed diverticula were found inthe sigmoid colon and descending colon. The exam was otherwise without abnormality. Estimated Blood Loss: Estimated blood loss: none. Impression: - Preparation of the colon was inadequate. - Diverticulosis in the sigmoid colon and in the descending colon. - The examination was otherwise normal. - No specimens collected. Recommendation: - Discharge patient to home. - Patient has a contact number available for emergencies. The signs and symptoms of potential delayed complications were discussed with thepatient. Return to normal activities tomorrow. Written discharge instructions were provided to thepatient. - High fiber diet for the rest of the patient'slife. - Repeat colonoscopy in 1 month because the bowel preparation was poor. - Return to my office PRN. Procedure Code(s): --- Professional --- 75454, Colonoscopy, flexible; diagnostic, including collection of specimen(s) by brushing or washing,when performed (separate procedure) Diagnosis Code(s): --- Professional --- K57.30, Diverticulosis of large intestine without perforation orabscess without bleeding R10.31, Right lower quadrant pain CPT copyright 2022 [employer] [place] [employer]. All rights reserved. The codes documented in this report are preliminary and upon reefer engineer reviewmay be revised to meet current compliance requirements. DO Rivera Guadalupe DO 11/05/2024 9:52:48 AM Number of Addenda: 0 Note Initiated On: 11/05/2024 9:37 AM Authorizing ProviderResult TypeResult StatusMicluther SINGH PROCEDURE ORDERABLESFinal ResultPerforming OrganizationAddressCity/State/ZIP CodePhone Number PM CARDIOVASCULAR * EGD (11/05/2024 9:26 AM EDT)Specimen (Source)Anatomical Location / Laterality Collection Method / VolumeCollection TimeReceived Time11/05/2024 9:26 AM EDT Narrative PM CARDIOVASCULAR - 11/05/2024 9:39 AM EDT [facility] Patient Name: Madhavi Easton ?? Procedure Date No Time: 11/05/2024 ?? CSN : [id number] Date of : 1965 Admit Type: Outpatient Age: 58 Room: [facility] Gender: Female Note Status: Finalized Attending MD: Rivera Rivera DO, Procedure: ? Upper GI endoscopy Indications: ? Abdominal pain in the right lower quadrant, Nausea ? with vomiting Providers: ? Rivera Rivera DO Referring MD: ?Rivera Rivera DO Medicines: ? Propofol per Anesthesia Complications: ? No immediate complications. Procedure: ? After obtaining informed consent, the endoscope was ? passed under direct vision. Throughout the procedure, ? the patient's blood pressure, pulse, and oxygen ? saturations were monitored continuously. The OLYMPUS ? GIF-HQ190 #[id number] ADULT GASTROSCOPE was introduced ? through the mouth, and advanced to the fourth part of ? duodenum. The upper GI endoscopy was accomplished ? without difficulty. The patient tolerated the ? procedure well. Findings: ? The nasopharynx and oropharynx were normal. ? LA Grade B (one or more mucosal breaks greater than 5 mm, not extending ? between the tops of two mucosal folds) esophagitis with no bleeding was ? found 35 cm from the incisors. Biopsies were taken with a cold forceps ? for histology. ? Diffuse moderate inflammation characterized by congestion (edema), ? erythema, granularity and nodularity was found in the entire examined ? stomach. Biopsies were taken with a cold forceps for histology. ? The examined duodenum was normal. Estimated Blood Loss: ??Estimated blood loss: none. Impression: ?- Normal nasopharynx and oropharynx. ? - LA Grade B reflux esophagitis with no bleeding. Rule ? out Rodríguez's esophagus. Biopsied. ? - Gastritis, characterized by congestion (edema), ? erythema, granularity and nodularity. Biopsied. ? - Normal examined duodenum. Recommendation: ?- Await pathology results. ? - No aspirin, ibuprofen, naproxen, or other ? non-steroidal anti-inflammatory drugs for 8 weeks. Procedure Code(s): ? --- Professional --- ? 94037, Esophagogastroduodenoscopy, flexible, ? transoral; with biopsy, single or multiple Diagnosis Code(s): ? --- Professional --- ? K21.00, Gastro-esophageal reflux disease with esophagitis, without ? bleeding ? K29.70, Gastritis, unspecified, without bleeding ? R10.31, Right lower quadrant pain ? R11.2, Nausea with vomiting, unspecified CPT copyright 2022 [employer] [place] [employer]. All rights reserved. The codes documented in this report are preliminary and upon reefer engineer review may be revised to meet current compliance requirements. DO Rivera Guadalupe DO 11/05/2024 9:39:14 AM Number of Addenda: 0 Note Initiated On: 11/05/2024 9:26 AM Procedure Note Rivera Rivera DO - 11/05/2024 [facility] Patient Name: Madhavi Easton Procedure Date No Time: 11/05/2024 CSN : [id number] Date of : 1965 Admit Type: Outpatient Age: 58 Room: [place] [address] Gender: Female Note Status: Finalized Attending MD: Rivera Rivera DO, Procedure: Upper GI endoscopy Indications: Abdominal pain in the right lower quadrant, Nausea with vomiting Providers: Rivera Rivera DO Referring MD: Rivera Rivera DO Medicines: Propofol per Anesthesia Complications: No immediate complications. Procedure: After obtaining informed consent, the endoscope was passed under direct vision. Throughout theprocedure, the patient's blood pressure, pulse, and oxygen saturations were monitored continuously. [facility]MicroTransponderCR[facility]POINT [facility] GIF-HQ190 #[id number] ADULT GASTROSCOPE was introduced through the mouth, and advanced to the fourth partof duodenum. The upper GI endoscopy was accomplished without difficulty. The patient tolerated the procedure well. Findings: The nasopharynx and oropharynx were normal. LA Grade B (one or more mucosal breaks greater than 5 mm, notextending between the tops of two mucosal folds) esophagitis with no bleedingwas found 35 cm from the incisors. Biopsies were taken with a coldforceps for histology. Diffuse moderate inflammation characterized by congestion (edema), erythema, granularity and nodularity was found in the entire examined stomach. Biopsies were taken with a cold forceps for histology. The examined duodenum was normal. Estimated Blood Loss: Estimated blood loss: none. Impression: - Normal nasopharynx and oropharynx. - LA Grade B reflux esophagitis with no bleeding.Rule out Rodríguez's esophagus. Biopsied. - Gastritis, characterized by congestion (edema), erythema, granularity and nodularity. Biopsied. - Normal examined duodenum. Recommendation: - Await pathology results. - No aspirin, ibuprofen, naproxen, or other non-steroidal anti-inflammatory drugs for 8weeks. Procedure Code(s): --- Professional --- 49517, Esophagogastroduodenoscopy, flexible, transoral; with biopsy, single or multiple Diagnosis Code(s): --- Professional --- K21.00, Gastro-esophageal reflux disease with esophagitis, without bleeding K29.70, Gastritis, unspecified, without bleeding R10.31, Right lower quadrant pain R11.2, Nausea with vomiting, unspecified CPT copyright 2022 [employer] [employer]. All rights reserved. The codes documented in this report are preliminary and upon reefer engineer reviewmay be revised to meet current compliance requirements. DO Rivera Guadalupe DO 11/05/2024 9:39:14 AM Number of Addenda: 0 Note Initiated On: 11/05/2024 9:26 AM Authorizing ProviderResult TypeResult Teresa Rivera DOGI PROCEDURE ORDERABLESFinal ResultPerforming OrganizationAddressCity/State/ZIP CodePhone Number PM CARDIOVASCULAR * EGD Report (11/05/2024 7:43 AM EDT)Specimen (Source)Anatomical Location / LateralityCollection Method / VolumeCollection TimeReceived Time Narrative SYSTEMGENERATED, DOCUMENTATION - 11/05/2024 7:43 AM EDT This order has been auto-finalized for image and report archival in PACs. *For full report details, please reach out to your physician. ??This image is visible to you in MyChart.* Authorizing ProviderResult TypeResult Teresa Rivera DOIMG OR IMG ORDERABLESFinal Result * CT abdomen and pelvis with contrast (10/30/2024 9:11 AM EDT)Anatomical Region LateralityModalityBody, Abdomen, Body CoveraN/AComputed TomographySpecimen (Source)Anatomical Location / LateralityCollection Method / VolumeCollection TimeReceived Time10/30/2024 11:29 AM EDT Narrative 10/30/2024 11:30 AM EDT CLINICAL INFORMATION: RLQ abdominal pain TECHNIQUE: CT [...] Daniel Meléndez MD on 10/30/2024 11:30 AM Procedure Note Daniel Meléndez MD - 10/30/2024 CLINICAL INFORMATION: RLQ abdominal pain TECHNIQUE: CT ABDOMEN AND PELVIS W CONT CT images of the abdomen and pelvis are obtained. Intravenous contrast was administered. There is no free intraperitoneal fluid or evidence of pneumoperitoneum. What appears to be the appendix is normal in caliber,although not well visualized. Small bowel is nondistended. There is nocolonic wall thickening or pericolonic inflammatory stranding. No hydronephrosis. Theliver, spleen, pancreas, and adrenals appear unremarkable. Portal andmesenteric vessels enhance normally 2 within the limits this exam. Patientstatus post multiple compression deformities with vertebroplasty. Aortic atherosclerotic changes noted. IMPRESSION: No acute findings. All CT scans at this facility use dose modulation, iterativereconstruction, and/or weight based dosing when appropriate to reduceradiation dose to as low as reasonably achievable. Finalized by Daniel Meléndez MD on 10/30/2024 11:30 AM Authorizing ProviderResult TypeResult StatusJegerber Carr [place] VULCANIZER RUBBER PLATE-CNPIMG CT ORDERABLESFinal Result * Creatinine includes GFR, serum (10/30/2024 8:12 AM EDT)ComponentValueRef Range Test MethodAnalysis TimePerformed AtPathologist SignatureCREATININE0.890.40 - 1.00 mg/dL10/30/2024 8:45 AM EDUNIVERSITY HOSPITALS GEAUGA [facility] CENTERComment: METHOD TRACEABLE TO IDMA STANDARDEGFR Non-Race Cjksyjjsz75>=60 ml/min/1.73sq.m 10/30/2024 8:45 AM [facility]: Reported eGFR is based on the CKD-EPI 2020 equation that does not use a race coefficient. Specimen (Source)Anatomical Location / LateralityCollection Method / Volume Collection TimeReceived TimeBloodVenous blood / UnknownVenipuncture / Unknown 10/30/2024 8:12 AM EDT10/30/2024 8:12 AM EDT Narrative Authorizing ProviderResult TypeResult StatusYodit Carr [place] [employer]UL[employer] RUBBER PLATE-CNPLAB BLOOD ORDERABLESFinal ResultPerforming OrganizationAddressCity/State/ZIP CodePhone Number [facility] [address] [place] [address], from Last 3 Months Insurance Advance Directives * Full Code (Latest Code Status on File) Date ActivatedDate InactivatedComments03/08/2024 8:00 PM03/09/2024 6:28 PM * Full Code Date ActivatedDate InactivatedComments11/21/2021 8:16 AM9 7:32 PM * Full Code Date ActivatedDate InactivatedComments10/04/2019 12:01 PM10/05/2019 2:14 PM Care Teams Team MemberRelationshipSpecialtyStart DateEnd Date Services, [facility] [address], [place] PCP - GeneralFamily Medicine03/15/24
--- NOTE | 2025-01-01 15:34 | CT_ITS ---
The [address] [address] Patient Name: KATELYN KHAN MRN: [id number] date: 1965 Sex: F Assigned Patient Location: ER Current Patient Location: ER Accession/Order Number: [id number] Exam Date: 01/01/2025 16:27 Report Date: 01/01/2025 16:50 At the request of: DYANA WALL DO Procedure: CT abdomen pelvis w con CT Abdomen and Pelvis withcontrast TECHNIQUE: Axial imaging with 2-D reconstruction. The CT exam was performed using one or more the following dose reduction techniques: Automated exposure control, adjustment of the MA and/or Kv according to patient size, or use of the iterative reconstruction technique. COMPARISON: 03/05/2023 History: Lower abdominal pain. Nausea. LIMITATIONS: None LOWER THORAX tiny hiatal hernia. Subsegmental atelectasis. LIVER: Hepatic steatosis. Hepatomegaly. GALLBLADDER: Cholecystectomy clips identified. BILE DUCTS: No dilatation SPLEEN: Similar splenomegaly PANCREAS: Diffuse fatty atrophic changes. No ductal dilatation. ADRENAL GLANDS: Unremarkable KIDNEYS:Similar renal atrophy. No hydronephrosis. AORTA: No abdominal aortic aneurysm identified. RETROPERITONEUM: No significant retroperitoneal abnormalities identified. MESENTERY:Unremarkable STOMACH:Unremarkable SMALL BOWEL: The small bowel loops are nondistended. APPENDIX: The appendix is normal. COLON: Diverticulosis URINARY BLADDER: Urinary bladder is unremarkable. REPRODUCTIVE SYSTEM: The uterus is absent. PNEUMOPERITONEUM: None PERITONEAL FLUID:None BONY STRUCTURES: Degenerative change. Kyphoplasty change. Similar mild compression deformities femoral head avascular necrosis. ABDOMINAL WALL: Unremarkable CT/CT abdomen pelvis w con IMPRESSION: No focal inflammatory changes. No bowel obstruction. Impression dictated by: Alberto Saini M.D. 01/01/2025 4:50 PM Dictation Location: [facility] Electronically authenticated by: [id number] Y Date: 01/01/2025 16:50
[2025-01-01] MEDS: DICYCLOMINE HCL 10 MG CAPSULE 20 MG PO (16:19)
[2025-01-01] MEDS: 0.9 % SODIUM CHLORIDE 1,000 ML 1000 ML IV ×2 (16:19→18:31)
[2025-01-01 16:22] LABS: Hematocrit 47.2 % (36.0-48.0); Hemoglobin 16.8 g/dL (12.0-16.0); Immature Granulocytes Abs Auto 0.01 10^3/uL (0.00-0.03); Immature Granulocytes Pct Auto 0.1 % (0.0-0.5); Lymphocytes Absolute Auto 2.3 10^3/uL (1.2-3.8); Mean Corpuscular HGB Conc 35.6 g/dL (29.9-35.2); Mean Corpuscular Hemoglobin 32.4 pg (26.7-34.0); Mean Corpuscular Volume 90.9 fL (81.0-99.0); Platelet Count 145 10^3/uL (150-450); Red Blood Count 5.19 10^6/uL (4.20-5.40); White Blood Count 8.3 10^3/uL (4.0-11.0)
[2025-01-01 16:36] LABS: Alanine Aminotransferase 47 U/L (14-59); Albumin Globulin Ratio 1.2; Albumin Level 4.5 g/dL (3.4-5.0); Alkaline Phosphatase 108 U/L (46-116); Anion Gap 19.1; Aspartate Amino Transferase 31 U/L (15-37); Blood Urea Nitrogen 12.0 mg/dL (7.0-18.0); Calcium 10.3 mg/dL (8.5-10.1); Carbon Dioxide 19.8 mmol/L (21.0-32.0); Chloride 101 mmol/L (98-107); Estimated GFR (African America 44 (>=60 mL/min/1.73m^2); Estimated GFR (Non-African Ame 36 (>=60 mL/min/1.73m^2); Globulin 3.6 g/dL; Glucose 343 mg/dL (74-106); Potassium 3.9 mmol/L (3.5-5.1); Sodium 136 mmol/L (136-145); Total Protein 8.1 g/dL (6.4-8.2)
[2025-01-01 16:40] LABS: Lactate/Lactic Acid 5.2 mmol/L (0.4-2.0)
[2025-01-01 18:29] VITALS: BP 177/84; PULSE 83; O2SAT 99
[2025-01-01 19:44] LABS: Lactate/Lactic Acid 1.6 mmol/L (0.4-2.0)
--- NOTE | 2025-01-01 21:17 | ED.GENADUL1 ---
HPI HPI - General Adult General Chief complaint: Abdominal Pain Stated complaint: ABDOMINAL PAIN NAUSEA FLU SYPMTOMS Time Seen by Provider: 01/01/25 14:43 Source: patient Mode of arrival: walk-in Limitations: no limitations Related Data Home Medications ?Medication ?Instructions ?Recorded ?Confirmed glipizide 5 mg tablet, extended 5 mg PO DAILY 09/03/22 01/01/25 release 24 hr insulin glargine 100 unit/mL (3 1 unit subcut DAILY 09/03/22 01/01/25 mL) subcutaneous pen (Lantus Solostar U-100 Insulin) trazodone 50 mg tablet 50 mg PO DAILY 12/18/24 01/01/25 atorvastatin 40 mg tablet 40 mg PO DAILY 01/01/25 01/01/25 brexpiprazole 2 mg tablet (Rexulti) 2 mg PO DAILY 01/01/25 01/01/25 fluoxetine 10 mg capsule 30 mg PO DAILY 01/01/25 01/01/25 hydroxyzine pamoate 25 mg capsule 25 mg PO Q8H 01/01/25 01/01/25 Allergies Allergy/AdvReac Type Severity Reaction Status Date / Time Penicillins Allergy Unknown Anaphylaxis Verified 01/01/25 14:47 albuterol Allergy Swelling Verified 01/01/25 14:47 of Lip/Tongue/Throat loratadine AdvReac Intermediate Anaphylaxis Verified 01/01/25 14:47 empagliflozin (From AdvReac Mild Nausea Verified 01/01/25 14:47 Jardiance) amoxicillin AdvReac Anaphylaxis Verified 01/01/25 14:47 ibuprofen (From Motrin) AdvReac bleeding Verified 01/01/25 14:47 Opioid HPI Opioid Management Most Recent Opioid Data: Last Pain Scale 10 Today, 16:25 Last ED Pain Assessment Today, 16:25 [facility] Medical History (Updated 01/01/25 @ 20:25 by Doe Booth MD) Hx of ovarian cancer ?Z85.43 - Personal history of malignant neoplasm of ovary (ICD-10) Hx of cervical cancer ?Z85.41 - Personal history of malignant neoplasm of cervix uteri (ICD-10) Hx of renal calculi ?Z87.442 - Personal history of urinary calculi (ICD-10) History of COPD ?Z87.09 - Personal history of other diseases of the respiratory system (ICD-10) IDDM (insulin dependent diabetes mellitus) Hx of gastroesophageal reflux (GERD) ?Z87.19 - Personal history of other diseases of the digestive system (ICD-10) Hx of cardiac murmur ?Z86.79 - Personal history of other diseases of the circulatory system (ICD-10) Hypertension ?I10 - Essential (primary) hypertension (ICD-10) Hx of irritable bowel syndrome ?Z87.19 - Personal history of other diseases of the digestive system (ICD-10) History of asthma ?Z87.09 - Personal history of other diseases of the respiratory system (ICD-10) Hx of sleep apnea ?Z86.69 - Personal history of other diseases of the nervous system and sense organs (ICD-10) Surgical History (Updated 09/18/22 @ 13:40 by Sarbjit Kauffman) Hx of tonsillectomy ?Z90.89 - Acquired absence of other organs (ICD-10) Hx laparoscopic cholecystectomy ?Z90.49 - Acquired absence of other specified parts of digestive tract (ICD-10) Hx of arthroscopy of shoulder ?Z98.890 - Other specified postprocedural states (ICD-10) Hx of unilateral oophorectomy ?Z90.721 - Acquired absence of ovaries, unilateral (ICD-10) History of loop electrosurgical excision procedure (LEEP) ?Z98.890 - Other specified postprocedural states (ICD-10) Social History Smoking status: Never smoker Little interest or pleasure in doing things: not at all Feeling down, depressed, or hopeless: not at all Exam Constitutional Vital Signs, click to edit/add: Last Vital Signs Temp 98.7 F 01/01/25 14:47 Pulse 83 01/01/25 18:29 Resp 14 01/01/25 18:29 BP 177/84 H 01/01/25 18:29 Pulse Ox 99 01/01/25 18:29 O2 Del Method Room Air 01/01/25 18:29 Course Vital Signs Vital signs: Vital Signs Temperature 98.7 F 01/01/25 14:47 Pulse Rate 75 01/01/25 14:47 Respiratory Rate 20 01/01/25 14:47 Blood Pressure 140/83 01/01/25 14:47 Pulse Oximetry 100 01/01/25 14:47 Oxygen Delivery Method Room Air 01/01/25 14:47 Temperature 98.7 F 01/01/25 14:47 Pulse Rate 83 11/04/25 18:29 Respiratory Rate 14 01/01/25 18:29 Blood Pressure 177/84 H 01/01/25 18:29 Pulse Oximetry 99 01/01/25 18:29 Oxygen Delivery Method Room Air 01/01/25 18:29 Medical Decision Making MDM Narrative Medical decision making narrative: care transferred at end of Dr Navi shift. Patient with abdominal pain and nausea. CT pending and repeat lactic pending after hydration. lactic did normalize and CT abdomen neg. Patient informed of the above. She still had some nausea but did not feel she needed any additonal medicine at this time and preferred to be discharged. Discharged home with working diagnosis of abdominal pain and nausea Lab Data Labs: Lab Results 01/01/25 01/01/25 Range/Units 16:14 19:23 WBC 8.3 (4.0-11.0) 10^3/uL RBC 5.19 (4.20-5.40) 10^6/uL Hgb 16.8 H (12.0-16.0) g/dL Hct 47.2 (36.0-48.0) % MCV 90.9 (81.0-99.0) fL MCH 32.4 (26.7-34.0) pg MCHC 35.6 H (29.9-35.2) g/dL RDW 12.8 (11.0-15.0) % Plt Count 145 L (150-450) 10^3/uL MPV 10.8 (9.5-13.5) fL Neut % (Auto) 68.1 (43.0-75.0) % Lymph % (Auto) 27.6 (20.5-60.0) % [place] % (Auto) 3.3 (1.7-12.0) % Eos % (Auto) 0.5 L (0.9-7.0) % Baso % (Auto) 0.4 (0.2-2.0) % Neut # (Auto) 5.6 (1.4-6.5) 10^3/uL Lymph # (Auto) 2.3 (1.2-3.8) 10^3/uL [place] # (Auto) 0.3 (0.3-0.8) 10^3/uL Eos # (Auto) 0.0 (0.0-0.7) 10^3/uL Baso # (Auto) 0.0 (0.0-0.1) 10^3/uL Abs Immat Gran (auto) 0.01 (0.00-0.03) 10^3/uL Imm/Tot Granulo (auto) 0.1 (0.0-0.5) % Sodium 136 (136-145) mmol/L Potassium 3.9 (3.5-5.1) mmol/L Chloride 101 (98-107) mmol/L Carbon Dioxide 19.8 L (21.0-32.0) mmol/L Anion Gap 19.1 BUN 12.0 (7.0-18.0) mg/dL Creatinine 1.47 H (0.55-1.02) mg/dL Est GFR ( Amer) 44 L (>=60 mL/min/1.73m^2) Est GFR (Non-Af Amer) 36 L (>=60 mL/min/1.73m^2) BUN/Creatinine Ratio 8.2 Glucose 343 H (74-106) mg/dL Lactate 5.2 H* 1.6 (0.4-2.0) mmol/L Calcium 10.3 H (8.5-10.1) mg/dL Total Bilirubin 1.5 H (0.2-1.0) mg/dL Direct Bilirubin 0.3 H (0.0-0.2) mg/dL AST 31 (15-37) U/L ALT 47 (14-59) U/L Alkaline Phosphatase 108 (46-116) U/L C-Reactive Protein <0.50 (<=0.50) mg/dL Total Protein 8.1 (6.4-8.2) g/dL Albumin 4.5 (3.4-5.0) g/dL Globulin 3.6 g/dL Albumin/Globulin Ratio 1.2 Discharge Plan Discharge Chief Complaint: Abdominal Pain Clinical Impression: Abdominal pain, Nausea Patient Disposition: Home, Self-Care Prescriptions / Home Meds: No Action glipizide 5 mg tablet extended release 24hr 5 mg PO DAILY insulin glargine [Lantus Solostar U-100 Insulin] 100 unit/mL (3 mL) insulin pen 1 unit SUBCUT DAILY trazodone 50 mg tablet 50 mg PO DAILY atorvastatin 40 mg tablet 40 mg PO DAILY Rexulti 2 mg tablet 2 mg PO DAILY fluoxetine 10 mg capsule 30 mg PO DAILY hydroxyzine pamoate 25 mg capsule 25 mg PO Q8H Print Language: Turkmen Instructions: Acute Nausea and Vomiting (ED), Abdominal Pain (ED) Additional Instructions: follow up with your doctor in the next couple of days for recheck Referrals: Aubrey Salazar [Primary Care Provider] - 1 week Discharge Date/Time: 01/01/25 21:18
== END 2025-01-01 21:18 | disposition home or self-care (01) ==
PROVIDERS: Emergency Medicine; Emergency Provider Internal Medicine
DX: R10.9 Unspecified abdominal pain (principal); R11.0 Nausea; Z90.49 Acquired absence of other specified parts of digestive tract
CPT/HCPCS: 36415; 74177; 80048; 80076; 83605; 85025; 86140; 96374; 99285; J2405; Q9967

== ENCOUNTER 2025-01-17 11:05 | Emergency (ER) | payer BC, OTHER, SELFPAY ==
[2025-01-17 11:23] VITALS: BP 154/93; PULSE 86; TEMP 36.7; O2SAT 98; BMI 27.5
--- OUTSIDE RECORDS SUMMARY | 2025-01-17 12:18 | XMS_ITS | CCD ---
Author Organization [facility] Care Team Providers Care Eviscerator Name Role Phone Rice, Vincenzo W Unavailable Unavailable Rice, Vincenzo W Unavailable Unavailable Rice, Vincenzo W Unavailable Unavailable NONE, XXXX Unavailable Unavailable Rice, Vincenzo W Unavailable Unavailable Rice, Vincenzo W Unavailable Unavailable Rice, Vincenzo W Unavailable Unavailable NONE, XXXX Unavailable Unavailable [facility] Primary Care Provider [phone] EMERY HOROWITZ Referring [facility] e [facility] Unavailable EMERY HOROWITZ Referring Unavailabl e [facility] Primary Care Unavailable [facility] Primary Care Unavailable TRANG DORANTES Admitting Unavailable TRANG DORANTES Attending Unavailable TRANG DORANTES Consulting Unavailable ENA, DR VAIL Admitting Unavailable ENA, DR VAIL Attending Unavailable [facility] Primary Care Unavailable [place] [place], DR JORDAN Mary Consulting Unavailable ZIEBER, DR CASSY Cedeno Consulting Unavailable SERGO ENCARNACION Consulting Unavailable [facility] Primary Care Unavailable DEE, DR KEVIN Valdes Admitting Unavailabl e REINECK, DR KEVIN Valdes Attending Unavailabl e DEE, DR KEVIN Valdes Consulting Unavailabl e [facility] Primary Care Unavailable DEE, DR KEVIN Valdes Admitting Unavailabl e DEE, DR KEVIN Valdes Attending Unavailabl e DEE, DR KEVIN Valdes Consulting Unavailabl e BLANCA GRANT Attending Unavailable DONNA MONTANO Attending Unavailable SHAINA JANE Referring Unavailable [facility] Primary Care Unavailable VIVIANIDEBBIEKARIA Admitting Unavailable DEBBIE SONGKARIA Attending Unavailable SOM VALENZUELA Referring Unavailable [facility] Primary Care Unavailable [facility] Primary Care Provider Keturah KNAPP [facility] Primary Care Provider Keturah PA-C, [facility] Primary Care Provider Keturah PA-C, [facility] Primary Care Provider Lucia Olmos APRN Primary Care Provide r Pedro Emery MD Attending Provider [phone] [facility] Primary Care Provider Alberto Gallagher DO Attending Provider [phone] Lucia Olmos Primary Care Unavailab le Rupert, Imnikki Attending Unavailable Pedro Emery Admitting Unavailable Alberto Gallagher Attending Unavailable Alberto Gallaghre Admitting Unavailable Yoo, Elvira Primary Care Unavailable Joseph Rodriguez Attending Unavailab le Joseph Rodriguez Admitting Unavailab le [facility] Primary Care Provider ALONZO TORREZ Attending Unavailable SERVICES, [facility] Primary Care Unava ilable YODIT CUBA Attending Unavailable SERVICES, [facility] Primary Care Unava ilable YODIT CUBA Attending Unavailable SERVICES, [facility] Primary Care Unava ilable SOM VALENZUELA Referring Unavailable MICHELLE REBOLLAR Primary Care Unavailable CRISTAL, YONY Primary Care Unavailable JAMES DAVILA Attending Unavailable ALONZO TORREZ Consulting Unavailable KALA BARON T Admitting Unavailable SERVICES, [facility] Primary Care Unava ilable GAVIOTA HAYES Attending Unavailable YONY BEE Referring Unavailable SERVICES, [facility] Primary Care Unava ilable ASAAD, IMAD Referring Unavailable SERVICES, [facility] Primary Care Unava ilable DIVYA GALLOWAY Referring Unavailable SERVICES, [facility] Primary Care Unava ilable ASHLEY FRANCISCO Attending Unavailable MICHELLE REBOLLAR Referring Unavailable SERVICES, [facility] Primary Care Unava ilable YODIT CUBA Referring Unavailable SERVICES, [facility] Primary Care Unava ilable CAM CUBASSICA Lilly Attending Unavailable DANA YODIT A Referring Unavailable SERVICES, [facility] Primary Care Unava ilable SERVICES, [facility] Primary Care Unava ilable JERARDO ROMO Admitting Unavailable JERARDO ROMO Attending Unavailable JERARDO ROMO Referring Unavailable SERVICES, [facility] Unava ilable SERVICES, [facility] Unava ilable JERARDO ROMO Admitting Unavailable JERARDO ROMO Attending Unavailable JERARDO ROMO Referring Unavailable SERVICES, [facility] Unava ilable SERVICES, [facility] Unava ilable CHEN GUZMÁN Attending Unavailable PEREZ, BARBIE Referring Unavailable SERVICES, [facility] Unava ilable Allergies Allergy ClassificationReported Allergen(s)Allergy TypeDate of OnsetReaction(s) Facility (20 sources)albuterol; 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: [albuterol]Drug Gwbulld59-89-6869Dsjgmqtye, [facility] ([facility] sources)amoxicillin; 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: [amoxicillin]Drug Writyff72-63-0880 [facility] Repository (20 sources)ibuprofen; 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: [ibuprofen]Drug Akwrdqx65-23-6266Vqjsw (See Comments)[facility]ository (20 sources)loratadine; 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: [loratadine]Drug Ktbprpy57-03-2930Dxkhoooc [facility] Repository (1 source)[place]; 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: [Strawberries]Food allergy (disorder)[facility] Repository (20 sources)empagliflozin; 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: [EMPAGLIFLOZIN]Drug Ivgjlfu40-25-8620 [facility]omitingS[facility] [employer] Phone: (20 sources)strawberry allergenic extract; 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: [STRAWBERRY]Drug Ziftgre34-75-5290SzuadPLA [facility] [employer] Phone: (20 sources)Amoxicillin-Pot Clavulanate; 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: [AMOXICILLIN-POT CLAVULANATE]Propensity to adverse reactions to abdk86-06-9435PoptegwsHDCSouthern [facility] [employer] Phone: (7 sources)alogliptin; 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: [ALOGLIPTIN]Drug Sqmqdvm55-07-5867 AnaphylaxisThe [facility] Repository (1 source)Amoxicillin / ClavulanateDrug Sueshxq98-74-9094CkwRegional Medical Center Repository (1 source)empagliflozinDrug AllergyRegional Medical Center Repository (1 source)IbuprofenDrug AllergyRegional Medical Center Repository (1 source)PenicillinsDrug allergy (disorder)[facility] Repository (1 source)strawberry allergenic extractDrug Bhzzytz34-64-0888Rje [facility] Repository (20 sources)alogliptin; 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: [ALOGLIPTIN BENZOATE]Drug Allergy 10-89-4212DpkpsretvoqUsumwtbqyyBucyrus Community Hospital Repository (20 sources)POTASSIUM CLAVULANATE; 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: [POTASSIUM CLAVULANATE] Propensity to adverse reactions to drug (disorder)91-25-0095Zdwviwugdby [facility] Repository (1 source)STRAWBERRY FLAVOR; 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: [STRAWBERRY FLAVOR]Propensity to adverse reactions to drug (disorder)30-80-5737EavrgjtseyGalion Community Hospital Repository (20 sources)Amoxicillin; Translations: [AMOXICILLIN TRIHYDRATE]Drug Allergy 92-93-3292KwjcjrflaodZrtNghppk Repository (20 sources)Clavulanate; Translations: [CLAVULANIC ACID]Drug Eqdqukx81-75-6656 AnaphylaxisProMedica Repository (20 sources)alogliptinDrug Bqfrwfa64-69-0998DtwtokcdmksErxYjfpop Health System (14 sources)dulaglutide; Translations: [DULAGLUTIDE]Drug Ovgczhf55-65-1066 [facility] [employer] (1 source)alogliptinDrug Xwzwoed81-84-2537ZqijykvyeSamaritan North Health Center Repository (1 source)empagliflozinDrug Vpcdgjx27-70-0485SuwjndphaSamaritan North Health Center Repository (1 source)PenicillinsDrug allergy (disorder)18-21-6908IhfvpevhoSamaritan North Health Center Repository Medications Current Medications MedicationDrug Class(es)DatesSig (Normalized)Sig (Original)acetaminophen 325 mg / HYDROcodone bitartrate 5 mg oral tablet (1 source)Opioid AgonistStart: 60-18-3703hhrt 1 tablet by mouth every four to six hours for painHYDROcodone-acetaminophen (NORCO) 5-325 MG per tablet take 1 tablet by mouth every 4 to 6 hours if needed for pain 0 07/15/2021 Active albuterol 0.83 mg/ml inhalation solution (20 sources)beta2-Adrenergic AgonistStart: 06-23-2020 End: 57-53-1606xjfjhxxkr (PROVENTIL,VENTOLIN) 2.5 mg /3 mL (0.083 %) nebulizer solution Indications: Moderate persistent asthma without complication inhale contents of 1 vial ( 3 milliliters ) in nebulizer by mouthand INTO THE LUNGS four times a day if needed for wheezing 360 mL 1 06/23/2020 03/27/2024 Discontinued (Therapy completed)Start: 09-06-2019 End: 05-86-7129zrrt 2 puff(s) by inhalation every six hours as needed for wheezingalbuterol (PROVENTIL HFA;VENTOLIN HFA) 90 mcg/actuation inhaler Indications: Moderate persistent asthma without complication Inhale 2 puffs every 6 (six) hours as needed for wheezing. 18 g 11 09/06/2019 03/27/2024 Discontinued (Therapy completed)ALPRAZolam 0.25 mg oral tablet (15 sources)BenzodiazepineStart: 09-15-2022 End: 88-91-9489fybk 1 tablet by mouth once daily for anxietyALPRAZolam (XANAX) 0.25 mg tablet Indications: Anxiety disorder due to medical condition take 1 tablet by mouth nightly if needed for anxiety 30 tablet 2 09/15/2022 03/27/2024 Discontinued (Therapy completed)amitriptyline hydrochloride 25 mg oral tablet (14 sources)Tricyclic Antidepressanttake 3 tablets by mouth once daily amitriptyline (ELAVIL) 25 mg tablet Indications: migraine prevention Take 3 tablets (75 mg total) by mouth nightly Indications: migraine prevention. Takes three tablets Activeatorvastatin 40 mg oral tablet (17 sources)HMG-CoA Reductase InhibitorStart: 86-93-5102cyoq 1 tablet by mouth once dailybismuth subsalicylate 525 mg oral tablet (1 source)BismuthStart: 97-45-9869rcuf 8 tablets by mouth every twenty-four hoursbrexpiprazole 2 mg oral tablet (20 sources)Atypical AntipsychoticStart: 97-23-0096sjmgmnxgsludw (REXULTI) 2 mg tablet Take 1 tablet (2 mg total) by mouth. 03/14/2024 ActiveStart: 03-14-2024 take 1 tablet by mouth once daily60 actuat budesonide 0.16 mg/actuat / formoterol fumarate 0.0045 mg/actuat metered dose inhaler (15 sources)Corticosteroid, beta2-Adrenergic AgonistStart: 29-74-9127crgd 2 puff(s) by mouth twice dailySYMBICORT 160-4.5 MCG/ACT AERO inhale 2 puffs by mouth and INTO THE LUNGS twice a day 0 07/20/2021 ActiveStart: 18-69-5323lewg 2 puff(s) by inhalation twice dailybudesonide-formoteroL (SYMBICORT) 160-4.5 mcg/actuation inhaler Indications: Moderate persistent asthma without complication Inhale 2 puffs 2 (two) times a day. 10.2 g 10 03/19/2021 Active cyclobenzaprine hydrochloride 10 mg oral tablet (10 sources)Muscle RelaxantStart: 13-98-7668pefsuoejemkieua (FLEXERIL) 10 mg tablet 04/21/2020 Activedicyclomine hydrochloride 20 mg oral tablet (14 sources)AnticholinergicStart: 77-14-3594ncafzmqvksd (BENTYL) 20 mg tablet 04/21/2020 Activedocusate sodium 100 mg oral capsule (14 sources)Start: 27-21-6934cdrc 1 capsule by mouth in the morningdocusate sodium (COLACE) 100 mg capsule Indications: Constipation, unspecified constipation type Take 1 capsule (100 mg total) by mouth in the morning. 30 capsule 11 04/07/2022 Active0.5 ml dulaglutide 1.5 mg/ml auto-injector (3 sources)GLP-1 Receptor AgonistStart: 05-18-6472oaxmpelgsgiabi 1.25 mg oral capsule (16 sources)Provitamin D2 CompoundStart: 05-14-2020 End: 69-04-6255kmec 1 capsule by mouth every weekvitamin D (ERGOCALCIFEROL) 1.25 MG (41175 UT) CAPS capsule take 1 capsule by mouth every week 0 07/05/2021 ActiveFLUoxetine 10 mg oral capsule (17 sources)Serotonin Reuptake InhibitorStart: 24-77-1820gvck 1 capsule by mouth once dailyglipiZIDE 5 mg oral tablet (20 sources)SulfonylureaStart: 22-12-8530yqow 1 tablet by mouth twice daily hydrOXYzine pamoate 25 mg oral capsule (1 source)AntihistamineStart: 36-96-9175wkvb 1 capsule by mouth three times daily as needed for anxietyhydrOXYzine (VISTARIL) 25 mg capsule Take 1 capsule (25 mg total) by mouth 3 (three) times a day asneeded for anxiety. 12/13/2024 Active3 ml insulin aspart, human 100 unt/ml pen injector (14 sources)Insulin AnalogStart: 89-47-5480egfglw 1 [IU] by subcutaneous injection before mealtimeinsulin aspart U-100 (NovoLOG) 100 unit/mL (3 mL) insulin pen INJECT 8-10-12 UNITS SUBCUTANEOUSLY BEFORE MEALS PLUS ISS #2 (EXPECT UP TO 40 UNITS DAILY) 03/26/2020 Activeinsulin glargine 100 unt/ml injectable solution (17 sources)Insulin Analoginsulin glargine (LANTUS) 100 unit/mL injection Inject under the skin nightly. Activeinsulin glargine,hum.rec.anlog (LANTUS U-100 INSULIN SUBQ) (14 sources)inject 35 [IU] by subcutaneous injection once daily at bedtime insulin glargine,hum.rec.anlog (LANTUS U-100 INSULIN SUBQ) Inject 35 Units under the skin once daily at bedtime. Activeinject 35 [IU] by subcutaneous injection once daily at bedtimeinsulin glargine,hum.rec.anlog (LANTUS U-100 INSULIN SUBQ) Inject 35 Units under the skin once daily at bedtime. 0 Active3 ml insulin lispro 100 unt/ml pen injector (1 source)Insulin AnalogStart: 44-33-8783awlrei 1 [IU] by subcutaneous injection before mealtimeHUMALOG KWIKPEN 100 UNIT/ML SOPN inject 8-10-12 UNITS UNDER THE SKIN BEFORE MEALS PLUS INSULIN SLI... (REFER TO PRESCRIPTION NOTES). 0 07/20/2021 Activelidocaine 0.05 mg/mg medicated patch (15 sources)Antiarrhythmic, Amide Local AnestheticStart: 11-26-2021 End: 31-78-4702yadgq 1 dose transdermal route every twelve hours in the morning lidocaine (LIDODERM) 5 % Place 1 patch on the skin in the morning. Remove & Discard patch within 12 hours or as directed by . 30 patch 11/26/2021 03/27/2024 Discontinued (Therapy completed)loperamide hydrochloride 2 mg oral capsule (20 sources)Opioid AgonistStart: 11-65-3281orox 1 capsule by mouth four times daily for diarrhealoperamide (IMODIUM) 2 mg capsule Indications: Diarrhea, unspecified type take 1 capsule by mouth four times a day if needed for diarrhea 30 capsule 09/18/2021 Activemeclizine hydrochloride 25 mg chewable tablet (18 sources)Antiemetic End: 07-17-0318uxjikjhva (ANTIVERT) 25 mg tablet Chew 0.5 tablets (12.5 mg total) and swallow 3 (three) times a day as needed for dizziness. 06/18/2024 Discontinued (Therapy completed)meloxicam 15 mg oral tablet (14 sources)Nonsteroidal Anti-inflammatory DrugStart: 85-34-0728hahz 1 tablet by mouth in the morningmeloxicam (MOBIC) 15 mg tablet Take 1 tablet (15 mg total) by mouth in the morning. 05/08/2020 ActivemetFORMIN hydrochloride 500 mg oral tablet (19 sources)BiguanideStart: 75-84-1831ulwk 1 tablet by mouth twice daily at mealtimemetFORMIN (GLUCOPHAGE) 500 MG tablet take 1 tablet by mouth twice a day with meals 0 07/15/2021 Active End: 63-37-7411pgsCGUAVI (GLUCOPHAGE) 500 mg tablet Indications: type 2 diabetes mellitus Take 2 tablets (1,000 mgtotal) by mouth in the morning and 2 tablets (1,000 mg total) in the evening. Take with meals. Indications: type 2 diabetes mellitus. 06/18/2024 Discontinued (Therapy completed)metroNIDAZOLE 250 mg oral tablet (1 source)Nitroimidazole AntimicrobialStart: 78-27-7921jzlz 1 tablet by mouth four times dailynaloxone hydrochloride 40 mg/ml nasal spray (6 sources)Opioid AntagonistStart: 42-37-2509zqrykmtk (NARCAN) 4 mg/actuation spray,non-aerosol nasal spray Administer 1 spray (4 mg total) intoalternating nostrils as needed for opioid reversal. 1 each 11/25/2021 Activenaloxone (NARCAN) 4 mg/actuation spray,non-aerosol nasal spray (12 sources)Start: 11-25-2021 End: 86-24-0727jqwmiowh (NARCAN) 4 mg/actuation spray,non-aerosol nasal spray Administer 1 spray (4 mg total) intoalternating nostrils as needed for opioid reversal. 1 each 11/25/2021 06/18/2024 Discontinued (Therapy completed)Start: 31-37-4156cbxeebhl (NARCAN) 4 mg/actuation spray,non-aerosol nasal spray Administer 1 spray (4 mg total) intoalternating nostrils as needed for opioid reversal. 1 each 11/25/2021 Activenystatin 037288 unt/ml oral suspension (3 sources)Polyene AntifungalStart: 06-08-2024 End: 21-27-2647svqkmjcc (MYCOSTATIN) 100,000 unit/mL suspension Take 5 mL (500,000 Units total) by mouth in the morning and 5 mL (500,000 Units total) at noon and 5 mL (500,000 Units total) in the evening and 5 mL (500,000 Units total) before bedtime. Do all this for 10 days. 200 mL 06/08/2024 06/18/2024 Discontinued (Therapy completed)omeprazole 40 mg delayed release oral capsule (20 sources)Proton Pump InhibitorStart: 05-17-2024 End: 91-74-1051iusr 1 capsule by mouth at bedtimeomeprazole (PriLOSEC) 40 mg capsule Take 1 capsule (40 mg total) by mouth in the morning and at bedtime for 60 days. 60 capsule 1 11/05/2024 01/04/2025 ActiveStart: 70-55-2694artn 1 capsule by mouth once dailyondansetron 4 mg oral tablet (1 source)Serotonin-3 Receptor AntagonistStart: 03-08-2024 End: 61-90-8883hayg 1 tablet by mouth every eight hours as needed for nausea and vomitingondansetron (ZOFRAN) 4 mg tablet Take 1 tablet (4 mg total) by mouth every 8 (eight) hours as needed for nausea or vomiting for up to 12 doses. 12 tablet 03/08/2024 03/27/2024 Discontinued (Therapy completed)peg 3350-sod sulf,vzxf-sez-beq 178.7-7.3-0.5 gram recon soln (1 source)Start: 01-04-2025 End: 10-38-0058rbe 3350-sod sulf,ozni-ntq-gtv 178.7-7.3-0.5 gram recon soln Indications: RLQ abdominal pain Take 1kit by mouth in the morning for 1 dose. Please see instructional sheet given by physicians office. 1 each 01/04/2025 01/05/2025 Activephenazopyridine hydrochloride 200 mg oral tablet (14 sources)take 1 tablet by mouth three times dailyphenazopyridine (PYRIDIUM) 200 mg tablet Take 1 tablet (200 mg total) by mouth 3 (three) times a day. Activepolyethylene glycol 3350 89520 mg powder for oral solution (15 sources)Osmotic LaxativeStart: 10-24-2019 End: 47-99-8691kzyqgnhejvzu glycol (GLYCOLAX) 17 gram/dose powder Indications: Constipation in female , Endometrial cancer determined by uterine biopsy ([facility]) Take 17 g by mouth 2 (two) times a day. 527 g 3 10/24/2019 03/27/2024 Discontinued (Therapy completed)primidone 50 mg oral tablet (14 sources)Anti-epileptic AgentStart: 02-13-7181xzgz 1 tablet by mouth in the morning, then take 0.5-1 tablets by mouth at bedtimeprimidone (MYSOLINE) 50 mg tablet Indications: focal epilepsy Take 1 tablet (50 mg total) by mouth in the morning. Indications: a type of seizure called a focal seizure. Take 1/2 to 1 tab by mouth atbedtime. 11/28/2016 Activeprochlorperazine 10 mg oral tablet (14 sources)PhenothiazineStart: 41-55-1503eoso 1 tablet by mouth every six hours for nauseaprochlorperazine (COMPAZINE) 10 mg tablet Indications: Nausea take 1 tablet by mouth every 6 hours if needed for nausea or vomiting 60 tablet 2 07/01/2022 Activesimvastatin 40 mg oral tablet (18 sources)HMG-CoA Reductase Inhibitor End: 16-90-5638djql 1 tablet by mouth once dailysimvastatin (ZOCOR) 40 mg tablet Indications: hypercholesterolemia Take 1 tablet (40 mg total) by mouth nightly Indications: high cholesterol. 06/18/2024 Discontinued (Therapy completed)sod sulf-pot chloride-mag sulf 1.479-0.188- 0.225 gram tablet (6 sources)Start: 15-79-7176ime sulf-pot chloride-mag sulf 1.479-0.188- 0.225 gram tablet Indications: Diarrhea, unspecified type Please see instructional sheet given by physicians office. 24 tablet 10/17/2024 Activespironolactone 50 mg oral tablet (15 sources)Aldosterone AntagonistStart: 11-24-2020 End: 22-78-4741waev 1 tablet by mouth once dailyspironolactone (ALDACTONE) 50 mg tablet take 1 tablet by mouth once daily 90 tablet 11/24/2020 03/27/2024 Discontinued (Therapy completed)sucralfate 1000 mg oral tablet (8 sources)Aluminum ComplexStart: 28-64-4040yxce 1 tablet by mouth four times dailysucralfate (CARAFATE) 1 gram tablet Take 1 tablet (1 g total) by mouth 4 (four) times a day. 120 tablet 11/05/2024 Activetetracycline hydrochloride 500 mg oral capsule (1 source)Tetracycline-class AntimicrobialStart: 13-01-6883jufu 1 capsule by mouth four times dailytraZODone hydrochloride 50 mg oral tablet (20 sources)Serotonin Reuptake InhibitorStart: 46-49-3311blmj 1 tablet by mouth once daily as needed for sleeptraZODone (DESYREL) 50 mg tablet Take 1 tablet (50 mg total) by mouth nightly as needed for sleep. 03/13/2024 Active Completed/Discontinued Medications MedicationDrug Class(es)DatesSig (Normalized)Sig (Original)lisinopril 10 mg oral tablet (20 sources)Angiotensin Converting Enzyme InhibitorStart: 11-03-2017 End: 99-02-3314hiwb 1 tablet by mouth once dailyLisinopril 10 mg tablet Discontinued 10 MG PO Daily April 23, 2024 1:00am April 24, 2024 3 :23pm Problems Active Problems Problem ClassificationProblemDateDocumented DateEpisodic/ChronicAbdominal pain (17 sources)Periumbilical pain; Translations: [Periumbilical pain]Onset: 852191-08-7703MmdinfxdTqawzy (20 sources)Uncomplicated moderate persistent asthma; Translations: [Moderate persistent asthma, uncomplicated]Onset: 920810-60-1297NuulrfpKghisvqq of urinary tract (1 source)Personal history of urinary calculi; Translations: [PERSONAL HISTORY OF URINARY CALCULI]Onset: 04-48-1644VzwanoqcKcxhwt of cervix (3 sources)Malignant tumor of cervix; Translations: [Malignant neoplasm of cervix uteri, unspecified]10-02-8425EzlqazfHydhee of other urinary organs (3 sources)Malignant tumor of ureter; Translations: [Malignant neoplasm of unspecified ureter]92-31-0715QryhnqiVszkei of uterus (20 sources)Malignant neoplasm of endometrium; Translations: [Malignant neoplasm of endometrium of corpus uteri]Onset: 09-06-2019 Resolved: 789876-49-8610VclijbnXfvejup dysrhythmias (1 source)Bradycardia, unspecified; Translations: [Bradycardia, unspecified] Onset: 13-71-5142QzlpqflsWjfqfqe kidney disease (20 sources)Chronic kidney disease; Translations: [Chronic kidney disease, unspecified]52-71-5970NxmbpiuLfjmlyd obstructive pulmonary disease and bronchiectasis (20 sources)Chronic obstructive lung disease; Translations: [Chronic obstructive pulmonary disease, unspecified] Resolved: 903231-20-5761LmmdyifTypcjvbgyxj and hemorrhagic disorders (20 sources)Platelet count below reference range; Translations: [Thrombocytopenia, unspecified]Onset: 97-36-5858DlsijgeYapraohh atherosclerosis and other heart disease (3 sources)Coronary arteriosclerosis; Translations: [Atherosclerotic heart disease of [place] coronary artery without angina pectoris]51-32-4173Igxjooj Diabetes mellitus without complication (20 sources)Type 2 diabetes mellitus without complications; Translations: [Type 2 diabetes mellitus]Onset: 405370-82-7345LtqdwvjBcwfinnkc of lipid metabolism (20 sources)Dyslipidemia; Translations: [Hyperlipidemia, unspecified]03-09-2024 ChronicDiverticulosis and diverticulitis (1 source)Diverticulosis of intestine, part unspecified, without perforation or abscess without bleeding; Translations: [Diverticulosis of intestine, part unspecified, without perforation or abscess without bleeding]Onset: 11-05-2024 ChronicEsophageal disorders (20 sources)Gastroesophageal reflux disease without esophagitis; Translations: [Gastro-esophageal reflux disease without esophagitis]Onset: 06-05-2018 78-16-5476GptekhvOqvbxoezk hypertension (20 sources)Benign essential hypertension; Translations: [Essential (primary) hypertension]Onset: 699052-31-9186EgcjsxqNzncjapht and duodenitis (1 source)Chronic superficial gastritis without bleeding; Translations: [Chronic superficial gastritis without bleeding]Onset: 67-26-9883BxrrkmkEjuewvmzvlushurn hemorrhage (2 sources)Black feces; Translations: [Melena]Onset: EpisodicHeadache; including migraine (4 sources)Headache; including migraine; Translations: [HEADACHE UNSPECIFIED] Onset: 38-60-4219Pqcsc valve disorders (1 source)Unspecified abnormalities of heart beat; Translations: [Unspecified abnormalities of heart beat]Onset: 22-34-7512GfipahkqAnxlrwbmx (1 source)InfluenzaOnset: 67-76-4373Oipnyehuv (3 sources)History of leukemia; Translations: [Personal history of leukemia] 80-99-8871VgmdponjPwng disorders (4 sources)Major depressive disorder, single episode, unspecified; Translations: [Depressive disorder]Onset: 790046-70-2492XtrengkKepufd and vomiting (2 sources)Vomiting; Translations: [Vomiting, unspecified]Onset: 10-17-2024 58-53-9668ApcxcgdbCorttetqxye chest pain (7 sources)Chest pain, unspecified; Translations: [Chest pain]Onset: 02-07-2024 38-83-5566MgabjzroNmiveeyurnmtqq (1 source)Unilateral primary osteoarthritis, right knee; Translations: [UNI PRIM OSTEOARTHRITIS RT KNEE]Onset: 60-57-3872SntbfpxIlyvk aftercare (1 source)Other senior living (current) drug therapy; Translations: [OTH INTERMEDIATE CURRENT DRUG THERAPY]Onset: 25-62-6006KndpwucqKlnyg aftercare (1 source)half-way (current) use of insulin; 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: [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]Onset: 93-97-9314PvxkdlogCazsk aftercare (1 source)half-way (current) use of oral hypoglycemic drugs; Translations: [SHEET IRONWORKER USE ORAL HYPOGLYCEMIC DX]Onset: 16-58-2087UyygaqitZomte and unspecified benign neoplasm (1 source)Polyp of colon; Translations: [Polyp of colon]Onset: 12-03-2024 EpisodicOther diseases of kidney and ureters (3 sources)Kidney disease; Translations: [Disorder of kidney and ureter, unspecified]73-12-0635ZczsetviZouct gastrointestinal disorders (1 source)Splenomegaly; Translations: [Splenomegaly, not elsewhere classified] EpisodicOther gastrointestinal disorders (1 source)Diarrhea; Translations: [Diarrhea, unspecified]87-63-4439RexuwmdeJpfyj gastrointestinal disorders (1 source)Diarrhea, unspecified; Translations: [Diarrhea, unspecified]Onset: 04-45-3107MdqezuiuWsbae injuries and conditions due to external causes (1 source)Personal history of other (healed) physical injury and trauma; Translations: [PERS HX OTH HEALED PHYS INJ AND TRAUMA]Onset: 68-71-5023Huxmjfni Other liver diseases (20 sources)Cirrhosis of liver; Translations: [Other cirrhosis of liver]Onset: 561286-38-6699GwwvhhaWrjhz liver diseases (3 sources)Steatosis of liver; Translations: [Fatty (change of) liver, not elsewhere classified]55-06-0919LskyrvrCwgec liver diseases (1 source)Large liver; Translations: [Hepatomegaly, not elsewhere classified] EpisodicOther liver diseases (2 sources)Hepatosplenomegaly; Translations: [Hepatomegaly with splenomegaly, not elsewhere classified]93-43-1274RiscoxzeKfkph lower respiratory disease (1 source)Shortness of breath; Translations: [Shortness of breath]Onset: 84-34-8980XgvkrnhhJgchd nutritional; endocrine; and metabolic disorders (20 sources)Obese class I; Translations: [Obesity (BMI 30.0-34.9)]Onset: 833178-52-5151AwodcihZsyax nutritional; endocrine; and metabolic disorders (2 sources)Unexplained weight loss ; Translations: [Abnormal weight loss] 97-19-7437XogohvadOzdck nutritional; endocrine; and metabolic disorders (1 source)Abnormal weight loss; Translations: [Loss of weight]47-71-8207Ussiaczf Other screening for suspected conditions (not mental disorders or infectious disease) (20 sources)Abnormal result of other cardiovascular function study; Translations: [Patient encounter status]Onset: 07-29-2016 Resolved: 390494-49-0902UorqomwvTveazzod codes; unclassified (20 sources)Obstructive sleep apnea syndrome; Translations: [Obstructive sleep apnea (adult) (pediatric)]Onset: 462105-05-0162UasvhprMdlqutqk codes; unclassified (20 sources)Insomnia; Translations: [Other insomnia]Onset: ChronicResidual codes; unclassified (1 source)Obstructive sleep apnea (adult) (pediatric); Translations: [Obstructive sleep apnea (adult) (pediatric)]Onset: 68-51-3164Vbmqxox Spondylosis; intervertebral disc disorders; other back problems (20 sources)Lumbar spondylosis; Translations: [Spondylosis without myelopathy or radiculopathy, lumbar region]Onset: 259187-64-8067QjwvbwkKzshfwdrbtsj (2 sources)Consult; Translations: [Consult]Onset: 17-35-0171Wzhxxcvhoine (6 sources)Autogenerated ProblemOnset: 446615-23-7109Fmowwqdzzzxo (1 source)Esophagitis, unspecified without bleeding; Translations: [Esophagitis, unspecified without bleeding]Onset: 95-05-4692Odaxogjwinwl (1 source)Abdominal Pain; VomitingOnset: 03-08-2024 Past or Other Problems Problem ClassificationProblemDateDocumented DateEpisodic/ChronicAbdominal hernia (18 sources)Umbilical hernia; Translations: [Umbilical hernia without obstruction or gangrene]Onset: 191250-35-3675PphopnihBakhqwgk mellitus without complication (20 sources)Hyperglycemia; Translations: [Hyperglycemia, unspecified]Onset: 169239-81-3057ZjqlayymJwhaknme of mouth; excluding dental (20 sources)Xerostomia; Translations: [Dry mouth, unspecified]Onset: 06-05-2018 Resolved: 293530-42-1822DfqlihydQ Codes: Fall (20 sources)Accidental fall ; Translations: [Fall (on) (from) other stairs and steps, initial encounter]Onset: 897541-91-6220DlkmsxwnXnwdllbxqmzbv symptoms and ill-defined conditions (20 sources)Dysuria; Translations: [Dysuria]Onset: 38-78-0610QmlrhbacIdbqzhif; including migraine (20 sources)Headache; Translations: [Headache]Onset: EpisodicIntestinal infection (2 sources)Infection caused by Helicobacter pylori; Translations: [Other specified bacterial intestinal infections]Onset: 854910-29-3787Udakgcns Lymphadenitis (20 sources)Cervical lymphadenopathy; Translations: [Localized enlarged lymph nodes]Onset: 977152-42-6834PjzxemvpTeby disorders (20 sources)Mood disordersOnset: 137252-00-0197Tvjlbal (1 source)Candidal stomatitis; Translations: [Candidal stomatitis]Onset: 51-63-9853JvbekmnrXnqxbmhercady gastroenteritis (18 sources)Gastroenteritis; Translations: [Noninfective gastroenteritis and colitis, unspecified]Onset: 910062-63-4016AnjjtdguWklfc gastrointestinal disorders (20 sources)Dysphagia; Translations: [Other dysphagia]Onset: 09-13-2017 Resolved: 333803-07-5457OwvkkedgCdapo injuries and conditions due to external causes (1 source)History of falling; Translations: [HISTORY OF FALLING]Onset: 81-31-1712WbcttaztZqeqq injuries and conditions due to external causes (20 sources)Injury of nose; Translations: [Unspecified injury of nose, initial encounter]Onset: 773586-91-8636BgzfzvmwFdagu injuries and conditions due to external causes (20 sources)Injury of left foot; Translations: [Unspecified injury of left foot, initial encounter]Onset: 524910-34-3685PcabpdnxRvzku injuries and conditions due to external causes (20 sources)Injury of right foot; Translations: [Unspecified injury of right foot, initial encounter]Onset: 125731-94-7284NqhfvnlnAnfsi lower respiratory disease (20 sources)Hemoptysis; Translations: [Hemoptysis]Onset: 04-24-2019 Resolved: 909966-79-7354HcughmjfWupbu lower respiratory disease (2 sources)Dyspnea; Translations: [Shortness of breath]75-40-8027UimeudxiJwidi nervous system disorders (1 source)Trigeminal neuralgia; Translations: [TRIGEMINAL NEURALGIA]Onset: 78-34-6530ZudgwldlHokej non-traumatic joint disorders (4 sources)Pain in right knee; Translations: [PAIN IN RIGHT KNEE]Onset: 84-16-3935LbtwtdsgLvbcd non-traumatic joint disorders (1 source)Pain in right ankle and joints of right foot; Translations: [PAIN IN RIGHT ANKLE]Onset: 56-87-4471YvnjfgxaQmsti upper respiratory disease (20 sources)Pain in throat; Translations: [Pain in throat]Onset: 09-13-2017 Resolved: 572335-91-1872KwsmcmjxUwjzr upper respiratory disease (20 sources)Hoarse; Translations: [Dysphonia]Onset: 09-13-2017 Resolved: 171634-43-3410RbpcvhudLrjzk upper respiratory infections (20 sources)Pharyngitis; Translations: [Acute pharyngitis, unspecified]Onset: 10-26-2018 Resolved: 694554-40-3579WxsqrcpuQglzkuazelkd fracture (20 sources)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; Translations: [Other osteoporosis with current pathological fracture, vertebra(e), initial encounter for fracture]Onset: 11-22-2021 92-12-1853AkxssfmxCcrunhmtkan; intervertebral disc disorders; other back problems (20 sources)Spinal stenosis in cervical region; Translations: [Spinal stenosis, cervical region]Onset: 819266-44-0495FdplbuapUlipbrvbjbl injury; contusion (20 sources)Contusion of orbital tissue of left eye; Translations: [Contusion of eyeball and orbital tissues, left eye, sequela]Onset: EpisodicUrinary tract infections (20 sources)Cystitis, unspecified without hematuria; Translations: [Acute cystitis]Onset: 578700-78-0056Pxoycuec Results Test NameValueInterpretationReference RangeFacilityMAMM SCREENING BILATERAL W CADon 33-51-2985WOHO SCREENING BILATERAL W CADMAMM SCREENING BILATERAL W CAD MADHAVI EASTON 1965 [id number] EXAM: MAMM SCREENING BILATERAL W CAD, 01/07/2025 11:19 AM CLINICAL INDICATIONS: Screening, Visit for screening mammogram COMPARISON: 07/17/2019 through 04/08/2022 TECHNIQUE: Bilateral digital tomosynthesis MLO and CC views of the breasts were obtained, with creation of synthetic 2D views. Computer aided detection was utilized. FINDINGS: There are scattered areas of fibroglandular density. There are no suspicious masses, calcifications, or areas of architectural distortion. IMPRESSION: No mammographic evidence of malignancy. BI-RADS: BI-RADS 1 - Negative RECOMMENDATION: Routine screening mammogram in 1 year. RISK ASSESSMENT: TC Lifetime risk: 15.49%. The patient's reported personal and family medical history was used calculate their Tyrer-Cuzick lifetime risk of malignancy. Scores less than 20% are not considered high risk per ACR guidelines and patient should continue with the above recommendation. Additionally, this patient's reported personal and/or family history of cancer indicates they may benefit from a genetic counseling consultation and possible genetic testing. If patient has not already completed this evaluation, please consider placing a referral to [facility] via [facility] or . For questions regarding this, please call [phone]. The patient was offered information on genetic counseling at the time of exam. Finalized by Kevin Barboza MD on 01/08/2025 11:13 AM 1 b MAMM 1 [facility] HospitalUrine Cultureon 51-33-8348Meclqkkm identified Cx Nom (U)>100,000 colonies/ml mixed bacterial skin contaminants 2 Days PERFORMED BY: [address] [place] [address] MANAGER FISH MALCOLM M.D.[facility] ER Physician GroupComment on above: Performed By: #### CUU #### [place] [id number] [facility] 76-44-4737kRYP Coag (Bld) [Time]31 gYvvncj78-57 [facility] CenterComment on above:Performed By: #### CMP, 3040-3, 83994-1, CBCA #### [facility] ([id number]) [address] [place] [address] 34556T-FBLD NATRIURETIC PEPTIDEon 64-08-9325Uzrpprftghq peptide B (Bld) [Mass/Vol]85 pg/mLNormal<=100ProTexas Health Presbyterian Hospital PlanoComment on above: Performed By: #### RODRIGO, 3039-3, , CBCA #### [facility] ([id number]) [address] [place] [address] 01532MLD WITH AUTO DIFFERENTIALon 01-48-1589UWRYGEUBU ABSOLUTE COUNT (10*3/UL) BY AUTOMATED COUNT0.1 10*3/uLNormal0.0-0.2PSouthwest General Health Center Comment on above:Performed By: #### RODRIGO, 3, , CBCA #### [facility] ([id number]) [address] [place] [address] 73990UBQDBOSCW RELATIVE PERCENT BY AUTOMATED COUNT1.4 %Normal [facility] CenterComment on above:Performed By: #### RODRIGO, 3, , CBCA #### [facility] ([id number]) [address] [place] [address] 39261XOOZNHKOFYE DIFFERENTIAL TYPEAUTOMATED DIFFERENTIALNormal [facility] CenterComment on above:Performed By: #### RODRIGO, 3, , CBCA #### [facility] ([id number]) [address] [place] [address] 06477Hsbberpcand (Bld) [#/Vol]0.1 10*3/uLNormal0.0-0.4ProTexas Health Presbyterian Hospital PlanoComment on above:Performed By: #### RODRIGO, 3, , CBCA #### [facility] ([id number]) [address] [place] [address] 73474HAJKUBZCEDV RELATIVE PERCENT BY AUTOMATED COUNT1.2 %Normal [facility] CenterComment on above:Performed By: #### RODRIGO, 3, , CBCA #### [facility] ([id number]) [address] [place] [address] 45868Ueoplxuhwfp distribution width (RBC) [Ratio]13.9 %Dfyuku14.5-15 [facility] CenterComment on above:Performed By: #### RODRIGO, 3, , CBCA #### [facility] ([id number]) [address] [place] [address] 52482Hrdcddgxeo (Bld) [Volume fraction]41.7 %Uifwhh23-17VqdKtwyqx Mission Community HospitalComment on above:Performed By: #### RODRIGO, 3039-04, , CBCA #### [facility] ([id number]) [address] [place] [address] 55890Osdywznaww (Bld) [Mass/Vol]14.5 g/vUDdbmyj27.7-15.5PSouthwest General Health CenterComment on above:Performed By: #### RODRIGO, 3039-04, , CBCA #### [facility] ([id number]) [address] [place] [address] 32576AKZMMRPESYB ABSOLUTE COUNT (10*3/UL) BY AUTOMATED COUNT2.8 10*3/uLNormal1.0-3.5PSouthwest General Health CenterComment on above:Performed By: #### RODRIGO, 3, , CBCA #### [facility] ([id number]) [address] [place] [address] 04865QNDZTHIEFNG RELATIVE PERCENT BY AUTOMATED COUNT48.9 %Normal [facility] CenterComment on above:Performed By: #### RODRIGO, 3, , CBCA #### [facility] ([id number]) [address] [place] [address] 51529YZK (RBC) [Entitic mass]31.9 krHvxgua93-56KmzAsaqyoSalem Regional Medical CenterComment on above:Performed By: #### RODRIGO, 3039-3, , CBCA #### [facility] ([id number]) [address] [place] [address] 73863SQZK (RBC) [Mass/Vol]34.8 g/mGAzumxi69-85UcjWsidsbTexas Health Presbyterian Hospital PlanoComment on above:Performed By: #### RODRIGO, 3, , CBCA #### [facility] ([id number]) [address] [place] [address] 52902FJJ (RBC) [Entitic vol]92 hTAwzqhp09-182QhvXzstzh [facility]ont HospitalComment on above:Performed By: #### RODRIGO, 3, , CBCA #### [facility] ([id number]) [address] [place] [address] 18462WZXNXMYGF ABSOLUTE COUNT (10*3/UL) BY AUTOMATED COUNT0.3 10*3/uLNormal0.0-0.9[facility] CenterComment on above:Performed By: #### RODRIGO, 3, , CBCA #### [facility] ([id number]) [address] [place] [address] 12119MZQAYDCNN RELATIVE PERCENT BY AUTOMATED COUNT4.4 %Normal ProMThompson Memorial Medical Center HospitalComment on above:Performed By: #### RODRIGO, 3, , CBCA #### [facility] ([id number]) [address] [place] [address] 35616RHDXLOOKWGT ABSOLUTE COUNT BY AUTOMATED COUNT2.5 10*3/uLNormal 1.5-6.6[facility] CenterComment on above:Performed By: #### RODRIGO, 3, , CBCA #### [facility] ([id number]) [address] [place] [address] 76837YCFQDPSELLU RELATIVE PERCENT BY AUTOMATED COUNT44.1 %Normal [facility] CenterComment on above:Performed By: #### RODRIGO, 3, , CBCA #### [facility] ([id number]) [address] [place] [address] 09075Rarnxzke mean volume (Bld) [Entitic vol]10.6 fLNormal7-12 [facility] CenterComment on above:Performed By: #### RODRIGO, 3039-04, , CBCA #### [facility] ([id number]) [address] [place] [address] 28517Yvthtwjib (Bld) [#/Vol]107 10*3/sOScc174-398QbdZekoirTexas Health Presbyterian Hospital PlanoComment on above:Performed By: #### RODRIGO, 3039-04, , CBCA #### [facility] ([id number]) [address] [place] [address] 19378SAN COUNT4.55 X10E12/LNormal3.8-5.2PSouthwest General Health Center Comment on above:Performed By: #### RODRIGO, 3, , CBCA #### [facility] ([id number]) [address] [place] [address] 11312XBV (Bld) [#/Vol]5.7 10*3/uLNormal4-11[facility] CenterComment on above:Performed By: #### RODRIGO, 3, , CBCA #### [facility] ([id number]) [address] [place] [address] 93802IYGSTYVEOYNHR METABOLIC PANELon 25-10-0197Bamzaxb [Mass/Vol]3.7 g/dLNormal3.2-5.3PSouthwest General Health CenterComment on above:Performed By: #### RODRIGO, 3039-3, , CBCA #### [facility] ([id number]) [address] [place] [address], [place] [address]QPQ [Catalytic activity/Vol]75 U/NCqcivw24-079PcyJakkoeTexas Health Presbyterian Hospital PlanoComment on above:Performed By: #### RODRIGO, 3039-3, , CBCA #### [facility] ([id number]) [address] [place] [address], [place] [address]WYN [Catalytic activity/Vol]31 U/LNormal<=31ProMedDoctors Hospital Of West CovinaComment on above:Performed By: #### RODRIGO, 3039-3, , CBCA #### [facility] ([id number]) [address] [place] [address], [place] [address]Nohgt gap [Moles/Vol]9 mmol/LNormal5-15ProTexas Health Presbyterian Hospital PlanoComment on above:Performed By: #### RODRIGO, 3, , CBCA #### [facility] ([id number]) [address] [place] [address], [place] [address]ENU [Catalytic activity/Vol]29 U/LNormal<=41ProTexas Health Presbyterian Hospital PlanoComment on above:Performed By: #### RODRIGO, 3, , CBCA #### [facility] ([id number]) [address] [place] [address], [place] [address]Llgzqlnhq [Mass/Vol]1.5 mg/dLHigh0.3-1.2ProMedChildren's Mercy Hospital HospitalComment on above:Performed By: #### RODRIGO, 3039-3, , CBCA #### [facility] ([id number]) [address] [place] [address], [place] [address]Wgargwe [Mass/Vol]8.7 mg/dLNormal8.5-10.5ProMedChildren's Mercy Hospital HospitalComment on above:Performed By: #### RODRIGO, 3, , CBCA #### [facility] ([id number]) [address] [place] [address] 65615Mkvylqrp [Moles/Vol]104 mmol/VOhbtld69-661UaiZykqatSalem Regional Medical CenterComment on above:Performed By: #### RODRIGO, 3, , CBCA #### [facility] ([id number]) [address] [place] [address] 32474AL5 [Moles/Vol]26 mmol/GSfurje88-41MxoExdothSouthwest General Health Center Comment on above:Performed By: #### RODRIGO, 3039-04, , CBCA #### [facility] ([id number]) [address] [place] [address] 13389Iqidyazpuk [Mass/Vol]1.06 mg/dLHigh0.40-1.00[facility] CenterComment on above:Result Comment: METHOD TRACEABLE TO IDMS STANDARD Performed By: #### RODRIGO, 3039-04, , MARIA TERESA #### [facility] ([id number]) [address] [place] [address] 14811AIT/1.73 sq M.predicted among non-blacks MDRD (S/P/Bld) [Vol rate/Area]61 mL/min/{1.73_m2}Normal>=60[facility] CenterComment on above:Result Comment: eGFR not reported due to non-numeric value for Creatinine. Reported eGFR is based on the CKD-EPI 2021 equation that does not use a race coefficient.Performed By: #### RODRIGO, 3, , CBCA #### [facility] ([id number]) [address] [place] [address] 95736Zecrhkz [Mass/Vol]234 mg/dCRlkb39-10GsmLstanySalem Regional Medical Center Comment on above:Performed By: #### RODRIGO, 3039-04, , CBCA #### [facility] ([id number]) [address] [place] [address] 39155Eshsbuldn [Moles/Vol]3.6 mmol/LNormal3.5-5.0[facility] CenterComment on above:Performed By: #### RODRIGO, 3039-04, , CBCA #### [facility] ([id number]) [address] [place] [address] 63167Ihybhpg [Mass/Vol]6.5 g/dLNormal6.0-8.0ProTexas Health Presbyterian Hospital PlanoComment on above:Performed By: #### RODRIGO, 3039-04, , CBCA #### [facility] ([id number]) [address] [place] [address] 39981Oisbst [Moles/Vol]139 mmol/MHwvdpy601-851MqiVhkcge [facility] HospitalComment on above:Performed By: #### RODRIGO, 3039-04, , CBCA #### [facility] ([id number]) [address] [place] [address] 78629Qats nitrogen [Mass/Vol]8 mg/dLNormal5-23ProTexas Health Presbyterian Hospital PlanoComment on above:Performed By: #### RODRIGO, 3039-04, , CBCA #### [facility] ([id number]) [address] [place] [address] 37458S-INEFRhk 12-05-2024D DIMER<^010Wyppui8-225IfcKabasw [facility] HospitalComment on above:Result Comment: Results <255 ng/mL DDU: The presensence of a VTE can safely be excluded with a negative D-Dimer result and Wells score. A negative result doesn't exclude the possibility of DIC. The test should be repeated along with other diagnostic tests if the patient's symptoms persist or worsen.Performed By: #### RODRIGO, 3039-04, , CBCA #### [facility] ([id number]) [address] [place] [address], [place] [address]PABVJCRPVmw 61-40-9536Zmuhrdnbf [Mass/Vol]1.5 mg/dLLow1.8-2.6 [facility] Community HospitalComment on above:Performed By: #### RODRIGO, 3039-3, , CBCA #### [facility] ([id number]) [address] [place] [address] [place] [address]FDJOADE AND INRon 80-95-4471VDT8.6Htkfku1.9-1.2PSouthwest General Health CenterComment on above:Performed By: #### RODRIGO, 3039-3, , CBCA #### [facility] ([id number]) [address] [place] [address] 68484WZ Coag (PPP) [Time]12.8 sNormal9.8-13.2PSouthwest General Health CenterComment on above:Performed By: #### RODRIGO, 3039-3, , CBCA #### [facility] ([id number]) [address] [place] [address], [place] [address]OPNE I, HIGH SENSITIVITY 1 HOURon 02-03-5575PIXTSAJD I, HIGH SENSITIVITY5 ng/LNormal<16ProTexas Health Presbyterian Hospital PlanoComment on above:Performed By: #### RODRIGO, 3039-3, , CBCA #### [facility] ([id number]) [address] [place] [address] 12064FAXUGDON I, HIGH SENSITIVITY 0 HOURon 08-74-9584WYYADUSG I, HIGH SENSITIVITY6 ng/LNormal<16ProTexas Health Presbyterian Hospital PlanoComment on above: Performed By: #### RODRIGO, 0-3, , CBCA #### [facility] ([id number]) [address] [place] [address], [place] [address]IW CHEST 1 VWon 46-06-8641UH CHEST 1 VWXR CHEST 1 VW Clinical history: Bradycardia. Comparisons: 08/24/2027 through 07/13/2023. Findings: Portable chest radiograph obtained 11:58 AM. Heart size and pulmonary vasculature appear within normal limits. Lungs appear clear. Defibrillator pads overlie the chest. No pleural effusion or pneumothorax. Upper lumbar kyphoplasty again seen. IMPRESSION: No evidence for acute cardiopulmonary disease. Finalized by Vincenzo Sharma MD on 12/05/2024 12:06 PMNormalSalem Regional Medical CenterBEDSIDE GLUCOSEon 39-92-9249Xmsgcpv [Mass/Vol]199 mg/zGOukw19-37 [facility] CenterComment on above:Performed By: #### RODRIGO, 3040-3, 60522-0, CBCA #### [facility] ([id number]) [address] [place] [address] 15041QPREATE GLUCOSEon 87-71-8230Egywzqb [Mass/Vol]183 mg/dLHigh 65-99[facility] CenterComment on above:Performed By: #### RODRIGO, 3040-3, 52489-9, CBCA #### [facility] ([id number]) [address] [place] [address] 80618ZOMTDLLEIS, SERUMon 79-48-6585Hqxgbyelkg [Mass/Vol]0.89 mg/dL Normal0.40-1.00[facility] Medical CenterComment on above:Result Comment: METHOD TRACEABLE TO IDFL STANDARDPerformed By: #### RODRIGO, 3040-3, 67958-5, CBCA #### [facility] ([id number]) [address] [place] [address] 07901QJN/1.73 sq M.predicted among non-blacks MDRD (S/P/Bld) [Vol rate/Area]75 mL/min/{1.73_m2}Normal>=60[facility] CenterComment on above:Result Comment: Reported eGFR is based on the CKD-EPI 2020 equation that does not use a race coefficient.Performed By: #### CMP, 3040-3, 30704-5, CBCA #### [facility] ([id number]) [address] [place] [address] 91185KV ABDOMEN AND PELVIS W CONTon 28-18-0082LI ABDOMEN AND PELVIS W CONTCT ABDOMEN AND PELVIS W CONT CLINICAL INFORMATION: RLQ abdominal pain TECHNIQUE: CT ABDOMEN AND PELVIS W CONT CT images of the abdomen and pelvis are obtained. Intravenous contrast was administered. There is no free intraperitoneal fluid or evidence of pneumoperitoneum. What appears to be the appendix is normal in caliber, although not well visualized. Small bowel is nondistended. There is no colonic wall t hickening or pericolonic inflammatory stranding. No hydronephrosis. The [...] by Daniel Meléndez MD on 10/30/2024 11:30 AMNormalProMedica Marina Del Rey Hospital WITH AUTO DIFFERENTIALon 43-55-3514HPAICUNNR ABSOLUTE COUNT (10*3/UL) BY AUTOMATED COUNT0.0 10*3/uLNormal0.0-0.2PSouthwest General Health Center Comment on above:Order Comment: Abnormal CBC with auto diff reflexes to a manual diffPerformed By: #### CMP, 3040-3, 34367-6, CBCA #### [facility] ([id number]) [address] [place] [address] 60990GUIUMVTAM RELATIVE PERCENT BY AUTOMATED COUNT0.6 %Normal ProMThompson Memorial Medical Center HospitalComment on above:Order Comment: Abnormal CBC with auto diff reflexes to a manual diffPerformed By: #### CMP, 3040-3, 08197-1, CBCA #### [facility] ([id number]) [address] [place] [address] [id number] DIFFERENTIAL TYPEAUTOMATED DIFFERENTIALNormal [facility] CenterComment on above:Order Comment: Abnormal CBC with auto diff reflexes to a manual diffPerformed By: #### CMP, 3040-3, , CBCA #### [facility] ([id number]) [address] [place] [address] [id number] (Bld) [#/Vol]0.0 10*3/uLNormal0.0-0.4[facility] Medical CenterComment on above:Order Comment: Abnormal CBC with auto diff reflexes to a manual diffPerformed By: #### CMP, 3039-3, , CBCA #### [facility] ([id number]) [address] [place] [address] 39643FHHZJTSVTMC RELATIVE PERCENT BY AUTOMATED COUNT0.5 %Normal [facility] CenterComment on above:Order Comment: Abnormal CBC with auto diff reflexes to a manual diffPerformed By: #### CMP, 3039-3, , CBCA #### [facility] ([id number]) [address] [place] [address] 01464Upmejtjoftm distribution width (RBC) [Ratio]13.8 %Llsbgd95.5-15 [facility] CenterComhillsdale hospital on above:Order Comment: Abnormal CBC with auto diff reflexes to a manual diffPerformed By: #### CMP, 3039-3, , CBCA #### [facility] ([id number]) [address] [place] [address] 26918Lhjkyfnbux (Bld) [Volume fraction]43.5 %Vnamqp16-03WesMjjhbrSalem Regional Medical CenterComment on above:Order Comment: Abnormal CBC with auto diff reflexes to a manual diffPerformed By: #### CMP, 0-3, , CBCA #### [facility] ([id number]) [address] [place] [address] 80832Utpiamgomq (Bld) [Mass/Vol]14.8 g/uLNhbtpk88.7-15.5PSouthwest General Health CenterComment on above:Order Comment: Abnormal CBC with auto diff reflexes to a manual diffPerformed By: #### CMP, 0-3, , CBCA #### [facility] ([id number]) [address] [place] [address] 94209XBMVNJSNACU ABSOLUTE COUNT (10*3/UL) BY AUTOMATED COUNT2.5 10*3/uLNormal1.0-3.5PSouthwest General Health CenterComment on above:Order Comment: Abnormal CBC with auto diff reflexes to a manual diffPerformed By: #### CMP, 3039-04, , CBCA #### [facility] ([id number]) [address] [place] [address] 71477FGIXYSZLNUQ RELATIVE PERCENT BY AUTOMATED COUNT46.6 %Normal [facility] CenterComment on above:Order Comment: Abnormal CBC with auto diff reflexes to a manual diffPerformed By: #### CMP, 3, , CBCA #### [facility] ([id number]) [address] [place] [address] 66315EPT (RBC) [Entitic mass]32.5 yfJcrzxz26-20JfwXfndnqSalem Regional Medical CenterComment on above:Order Comment: Abnormal CBC with auto diff reflexes to a manual diffPerformed By: #### CMP, 3, , CBCA #### [facility] ([id number]) [address] [place] [address] 43603ZWJY (RBC) [Mass/Vol]33.9 g/rLRuhxdx85-59YrsDddqumTexas Health Presbyterian Hospital PlanoComment on above:Order Comment: Abnormal CBC with auto diff reflexes to a manual diffPerformed By: #### CMP, 3, , CBCA #### [facility] ([id number]) [address] [place] [address] 82347XED (RBC) [Entitic vol]96 aUCbksqs51-523OzzLofedz Fremont HospitalComment on above:Order Comment: Abnormal CBC with auto diff reflexes to a manual diffPerformed By: #### CMP, 3040-3, , CBCA #### [facility] ([id number]) [address] [place] [address] 59644WXILHIGLZ ABSOLUTE COUNT (10*3/UL) BY AUTOMATED COUNT0.2 10*3/uLNormal0.0-0.9ProTexas Health Presbyterian Hospital PlanoComment on above:Order Comment: Abnormal CBC with auto diff reflexes to a manual diffPerformed By: #### CMP, 0-3, , CBCA #### [facility] ([id number]) [address] [place] [address] 64886RNTFJEBQX RELATIVE PERCENT BY AUTOMATED COUNT4.3 %Normal [facility] CenterComment on above:Order Comment: Abnormal CBC with auto diff reflexes to a manual diffPerformed By: #### CMP, 3040-3, , CBCA #### [facility] ([id number]) [address] [place] [address] 73672XSMRLZNZHMC ABSOLUTE COUNT BY AUTOMATED COUNT2.6 10*3/uLNormal 1.5-6.6ProTexas Health Presbyterian Hospital PlanoComment on above:Order Comment: Abnormal CBC with auto diff reflexes to a manual diffPerformed By: #### CMP, 3040-3, , CBCA #### [facility] ([id number]) [address] [place] [address] 43049XWTJMCLQAVI RELATIVE PERCENT BY AUTOMATED COUNT48.0 %Normal [facility] CenterComment on above:Order Comment: Abnormal CBC with auto diff reflexes to a manual diffPerformed By: #### CMP, 3040-3, , CBCA #### [facility] ([id number]) [address] [place] [address] 31938Mgdzdyyl mean volume (Bld) [Entitic vol]10.0 fLNormal7-12 [facility] CenterComment on above:Order Comment: Abnormal CBC with auto diff reflexes to a manual diffPerformed By: #### CMP, 3040-3, 41374-6, CBCA #### [facility] ([id number]) [address] [place] [address] 66942Pnsujqrpk (Bld) [#/Vol]89 10*3/vMRhv165-445JuqGoktzlSalem Regional Medical CenterComment on above:Order Comment: Abnormal CBC with auto diff reflexes to a manual diffPerformed By: #### CMP, 3040-3, 79585-8, CBCA #### [facility] ([id number]) [address] [place] [address] 14743RQF COUNT4.54 X10E12/LNormal3.8-5.2PSouthwest General Health Center Comment on above:Order Comment: Abnormal CBC with auto diff reflexes to a manual diffPerformed By: #### CMP, 3040-3, , CBCA #### [facility] ([id number]) [address] [place] [address] 03478CQR (Bld) [#/Vol]5.4 10*3/uLNormal4-11[facility] CenterComhillsdale hospital on above:Order Comment: Abnormal CBC with auto diff reflexes to a manual diffPerformed By: #### CMP, 3040-3, , CBCA #### [facility] ([id number]) [address] [place] [address] 58800XUBHPGBQNZYO PYLORI???ANTIGEN, FECALon 24-45-1131UYKMJMWRVSME PYLORI AG, BY EIANegativeNormalNegativeSalem Regional Medical CenterComment on above:Result Comment: Performed By: [employer] [address] [place] [address] Electron Tube Assembler: Reza Guajardo MD, PhD [place] Number: [id number] By: #### CMP, 3040-3, 16001-1, CBCA #### [facility] ([id number]) [address] [facility], [place], [place] [address]SFIFM STREP SCR NURSINGon 06-08-2024S. pyogenes Ag EIA Ql (Throat)NegativeNormalNEGProMedica Mission Community HospitalComment on above:Performed By: #### RODRIGO, 3040-3, 05782-3, CBCA #### [facility] ([id number]) [address] [place], [place] [address]DMFK/FLU A+B/RSV by NAAT/Molecularon 84-18-9977JEES/FLU A+B/RSV by NAAT/MolecularFLU A PCR Negative (qualifier value) FLU B [...] operators who are performing tests using either GeneFeedjit DX or GeneSteelBrick systems and is limited to laboratories that [...] specimen repeat. Fact Sheet for Healthcare Providers: https://www.fda.gov/media/373648/download Fact Sheet for Patients: https://www.fda.gov/media/966122/downloadNormalProMedica Mission Community HospitalComment on above:Performed By: #### CMP, 3040-3, 73049-0, CBCA #### [facility] ([id number]) [address] [place] [address], [place], [place] [address]Rzjyqis Glucometer (dC) [Mass/Vol]Ordered By: Pedro Emery on 84-63-4919Cnvfteh [Mass/Vol]Capillary blood glucose measurement by glucometer (mass/volume)[facility] Health CenterComment on above:Random Glucose Reference Range is dependent on time and content of last meal. Glucose of more than 200 mg/dL in a nonstressed, ambulatory subject supports the diagnosis of Diabetes Mellitus.Glucose Poct Glucometerson 34-49-8043Qwbmszi2Vor9: Cleaned MeterNoECU Health Roanoke-Chowan Hospital Physician GroupComment on above:Result Comment: PERFORMED BY: [facility] [address] [place] [address] MANAGER GAVIOTA LADD M.D.Performed By: #### GLULS #### Point of Care testing ,Glucose [Mass/Vol]306 mg/dLAdventHealth Waterford Lakes ER Physician GroupComment on above: Result Comment: Random Glucose Reference Range is dependent on time and content of last meal. Glucose of more than 200 mg/dL in a nonstressed, ambulatory subject supports the diagnosis of Diabetes Mellitus.Performed By: #### GLULS #### Point of Care testing ,No Panel InformationOrdered By: Pedro Emery on 18-68-9918Vstzzub Glucose Comment Glu2: cleaned ProMedica Memorial HospitalPathology Request for Lab Corpon 32-21-5278Vwkbqwlqm Request for Lab CorpNormalThTeton Valley Hospital Physician GroupComment on above:Order Comment: PATHOLOGY SPECIMEN- GI BIOPSYResult Comment: See report. Scanned copy available in EMR. PERFORMED BY: [facility] [address] [place] [address] MANAGER GAVIOTA LADD M.D.Performed By: #### PATH TO [facility] #### [facility] [address] [place] [address] USACBC AND AUTO DIFFon 46-18-5830NGFFHAZC BASOPHIL0.0 X10E9/L Normal0.0-0.2PSouthwest General Health CenterComment on above:Performed By: #### RODRIGO, 0-3, , CBCA #### [facility] ([id number]) [address] [place] [address] 67612NOHCXXDG NEUTROPHIL2.4 X10E9/LNormal1.5-6.6ProTexas Health Presbyterian Hospital PlanoComment on above:Performed By: #### RODRIGO, 0, , CBCA #### [facility] ([id number]) [address] [place] [address] 46628Fdnjgmolg/100 WBC (Bld)0.2 %NormalProTexas Health Presbyterian Hospital Plano Comment on above:Performed By: #### RODRIGO, 0-3, , CBCA #### [facility] ([id number]) [address] [place] [address] 79162Lxvqdalkabm (Bld) [#/Vol]0.0 10*3/uLNormal0.0-0.4[facility] Medical CenterComment on above:Performed By: #### RODRIGO, 0-3, , CBCA #### [facility] ([id number]) [address] [place] [address] 73732Gixoqfechbx/100 WBC (Bld)0.2 %NormalSalem Regional Medical Center Comment on above:Performed By: #### RODRIGO, 3039-04, , CBCA #### [facility] ([id number]) [address] [place] [address] 71428Klgmecowggn distribution width (RBC) [Ratio]13.9 %Normal 11.5-15.0ProTexas Health Presbyterian Hospital PlanoComment on above:Performed By: #### RODRIGO, 3039-04, , CBCA #### [facility] ([id number]) [address] [place] [address] 87096Plwahuhbqz (Bld) [Volume fraction]40.2 %Zzkoge12-30YlmUrbzfwTexas Health Presbyterian Hospital PlanoComment on above:Performed By: #### RODRIGO, 3039-04, , CBCA #### [facility] ([id number]) [address] [place] [address] 41624Cmrslogwbf (Bld) [Mass/Vol]13.9 g/cNWifltn68.7-15.5PSouthwest General Health CenterComment on above:Performed By: #### RODRIGO, 3039-04, , CBCA #### [facility] ([id number]) [address] [place] [address] 79383Umcwoyktmvx (Bld) [#/Vol]2.2 10*3/uLNormal1.0-3.5PSouthwest General Health CenterComment on above:Performed By: #### RODRIGO, 3039-04, , CBCA #### [facility] ([id number]) [address] [place] [address] 11617Nojwheuelzg/100 WBC (Bld)45.3 %NormalSalem Regional Medical Center Comment on above:Performed By: #### RODRIGO, 3039-04, , CBCA #### [facility] ([id number]) [address] [place] [address] 57316AGV (RBC) [Entitic mass]32.0 keTozgzk72-22HutAzzltrTexas Health Presbyterian Hospital PlanoComment on above:Performed By: #### CMP, 3039-04, , CBCA #### [facility] ([id number]) [address] [place] [address] 36307PMYB (RBC) [Mass/Vol]34.5 g/iNQytvni91-86CdvQnazosTexas Health Presbyterian Hospital PlanoComment on above:Performed By: #### RODRIGO, 3039-04, , CBCA #### [facility] ([id number]) [address] [place] [address] 59505SSN (RBC) [Entitic vol]93 xXOwbrwq23-863CgqQgteay [facility]remont HospitalComment on above:Performed By: #### RODRIGO, 3039-04, , CBCA #### [facility] ([id number]) [address] [place] [address] 50285Bxmwsrkzr (Bld) [#/Vol]0.2 10*3/uLNormal0-0.9[facility] Medical CenterComment on above:Performed By: #### CMP, 3039-04, , CBCA #### [facility] ([id number]) [address] [place] [address] 19143Ythobfyco/100 WBC (Bld)4.4 %[facility] Comment on above:Performed By: #### CMP, 3039-04, , CBCA #### [facility] ([id number]) [address] [place] [address] 06102Jokkullhbyb/100 WBC (Bld)49.9 %[facility] Comment on above:Performed By: #### CMP, 3039-3, , CBCA #### [facility] ([id number]) [address] [place] [address] 97411Gcxiamcg mean volume (Bld) [Entitic vol]10.4 fLNormal7-12 ProMThompson Memorial Medical Center HospitalComment on above:Performed By: #### RODRIGO, 3039-3, , CBCA #### [facility] ([id number]) [address] [place] [address] 86389Ddtgkamtl (Bld) [#/Vol]85 10*3/tWGbz842-982YwkUlanqpTexas Health Presbyterian Hospital PlanoComment on above:Performed By: #### RODRIGO, 3, , CBCA #### [facility] ([id number]) [address] [place] [address] 11401RBD COUNT4.32 X10E12/LNormal3.80-5.20[facility] Comment on above:Performed By: #### RODRIGO, 3, , CBCA #### [facility] ([id number]) [address] [place] [address] 44646LDB (Bld) [#/Vol]4.8 10*3/uLNormal4.0-11.0[facility] Medical CenterComment on above:Performed By: #### RODRIGO, 3, , CBCA #### [facility] ([id number]) [address] [place] [address] 47340IIDATNDKEYUYJ METABOLIC PANELon 94-40-9737Cpiprwf [Mass/Vol]3.4 g/dLNormal3.2-5.3PSouthwest General Health CenterComment on above:Performed By: #### RODRIGO, , CBCA #### [facility] ([id number]) [address] [place] [address] 43696 #### HA1C #### [facility] ([id number]) [address], [address] [place] [address]SMF [Catalytic activity/Vol]57 U/VPblgyc52-287ZgjKmrjyyTexas Health Presbyterian Hospital PlanoComment on above:Performed By: #### RODRIGO, 12369-3, CBCA #### [facility] ([id number]) [address] [place] [address] 77052 #### HA1C #### [facility] ([id number]) [address], [address] [place] [address]RME [Catalytic activity/Vol]28 U/LNormal0-31ProMedica Mission Community HospitalComment on above:Performed By: #### RODRIGO, 08954-5, CBCA #### [facility] ([id number]) [address] [place] [address] 29565 #### HAHe #### [facility] ([id number]) [address], [address] [place] [address]Bzggd gap [Moles/Vol]8 mmol/LNormal5-15ProTexas Health Presbyterian Hospital PlanoComment on above:Performed By: #### RODRIGO, 32978-8, CBCA #### [facility] ([id number]) [address] [place] [address] 54189 #### HA1C #### [facility] ([id number]) [address], [address] [place] [address]ADF [Catalytic activity/Vol]29 U/LNormal0-41ProTexas Health Presbyterian Hospital PlanoComment on above:Performed By: #### RODRIGO, 19517-7, CBCA #### [facility] ([id number]) [address] [place] [address] 85721 #### HA1C #### [facility] ([id number]) [address], [address] [place], [place] [address]Hdmckevap [Mass/Vol]0.8 mg/dLNormal0.3-1.2PSouthwest General Health CenterComment on above:Performed By: #### RODRIGO, , CBCA #### [facility] ([id number]) [address] [place] [address] 01849 #### HA1C #### [facility] ([id number]) [address], [address] [place], [place] [address]Bibndpo [Mass/Vol]8.5 mg/dLNormal8.5-10.5PSouthwest General Health CenterComment on above:Performed By: #### RODRIGO, , CBCA #### [facility] ([id number]) [address] [place] [address] 75306 #### HA1C #### [facility] ([id number]) [address], [address] [place], [place] [address]Tcibkyzh [Moles/Vol]104 mmol/QEardyf32-642VarQbltaw Mission Community HospitalComment on above:Performed By: #### RODRIGO, , CBCA #### [facility] ([id number]) [address] [place] [address] 96278 #### HA1C #### [facility] ([id number]) [address], [address] [place], [place] [address]BO6 [Moles/Vol]26 mmol/UBjtmfk18-04MvfHcxklySouthwest General Health Center Comment on above:Performed By: #### RODRIGO, , CBCA #### [facility] ([id number]) [address] [place] [address] 76592 #### HA1C #### [facility] ([id number]) [address], [address] [place], [place] [address]Yhucrkjtwm [Mass/Vol]0.71 mg/dLNormal0.40-1.00ProTexas Health Presbyterian Hospital PlanoComment on above:Result Comment: METHOD TRACEABLE TO IDMS STANDARD Performed By: #### RODRIGO, 36453-1, CBCA #### [facility] ([id number]) [address] [place] [address] 87858 #### HA1C #### [facility] ([id number]) [address], [address] [place], [place] [address]gVRD (CKD-EPI) NON-RACE DEPENDENT>90Normal>59ProTexas Health Presbyterian Hospital PlanoComment on above:Result Comment: Reported eGFR is based on the CKD-EPI 2020 equation that does not use a race coefficient.Performed By: #### RODRIGO, 40187-8, CBCA #### [facility] ([id number]) [address] [place] [address] 56608 #### HA1C #### [facility] ([id number]) [address] [facility] [place], [place] [address]Wdpdsll [Mass/Vol]259 mg/mWLkxh67-08NihEcufcqSalem Regional Medical Center Comment on above:Performed By: #### RODRIGO, 77008-3, CBCA #### [facility] ([id number]) [address] [place] [address] 90994 #### HA1C #### [facility] ([id number]) [address], [address] [place], [place] [address]Rvqnqegdt [Moles/Vol]3.7 mmol/LNormal3.5-5.0ProTexas Health Presbyterian Hospital PlanoComment on above:Performed By: #### RODRIGO, 92407-4, CBCA #### [facility] ([id number]) [address] [place] [address] 00911 #### HA1C #### [facility] ([id number]) [address], [address] [place], [place] [address]Trjqwls [Mass/Vol]5.7 g/dLLow6.0-8.0[facility] Comment on above:Performed By: #### RODRIGO, 46382-9, CBCA #### [facility] ([id number]) [address] [place] [address] 85136 #### HA1C #### [facility] ([id number]) [address] [place], [place] [address]Winche [Moles/Vol]138 mmol/UZjhoej684-561HfvAccpyy [facility]remont HospitalComment on above:Performed By: #### RODRIGO, , CBCA #### [facility] ([id number]) [address] [place] [address] 18310 #### HA1C #### [facility] ([id number]) [address], [address] [place], [place] [address]Yssv nitrogen [Mass/Vol]15 mg/dLNormal5-23ProTexas Health Presbyterian Hospital PlanoComment on above:Performed By: #### RODRIGO, 15504-4, CBCA #### [facility] ([id number]) [address] [place] [address] 49032 #### HA1C #### [facility] ([id number]) [address] [facility], [address] [place], [place] [address]Zeaoqme Glucometer (BldC) [Mass/Vol]on 77-40-8561Wygulsj [Mass/Vol]318 mg/nBRrry25-74JxyLvkhwbSalem Regional Medical CenterHGB A1C (GLYCO-HGB)on 56-29-4704Zxhhzmw [Mass/Vol]329 mg/dLNoSumma Health Barberton CampusComment on above:Performed By: #### RODRIGO, 3040-3, 02951-1, CBCA #### [facility] ([id number]) [address] [place] [address] 83427FeR8o (Bld) [Mass fraction]13.1 %High4.4-5.6ProTexas Health Presbyterian Hospital PlanoComment on above:Result Comment: NOTE ADA Guidelines Result HgbA1c Normal : less than 5.7 % Prediabetes : 5.7 % to 6.4 % Diabetes : > 6.4 % Use with caution in patients with abnormal hemoglobin variants as the half-life of red blood cells and in vivo glycation rates are affected.Performed By: #### RODRIGO, 3, , CBCA #### [facility] ([id number]) [address] [place] [address] 84558UPAOQJHAPnd 69-22-8783Gmcfcufyg [Mass/Vol]1.9 mg/dLNormal 1.8-2.6ProTexas Health Presbyterian Hospital PlanoComment on above:Performed By: #### RODRIGO, , CBCA #### [facility] ([id number]) [address] [place] [address] 15524 #### HA1C #### [facility] ([id number]) [address] [place] [address], [address] [place], [place] [address]DBO AND AUTO DIFFon 96-76-9080YIBZDTJA BASOPHIL0.0 X10E9/LNormal 0.0-0.2PSouthwest General Health CenterComment on above:Performed By: #### RODRIGO, , , CBCA #### [facility] ([id number]) [address] [place] [address] 83817FULLFPGA NEUTROPHIL3.4 X10E9/LNormal1.5-6.6ProTexas Health Presbyterian Hospital PlanoComment on above:Performed By: #### RODRIGO, 3, , CBCA #### [facility] ([id number]) [address] [place] [address] 25402Okyxmxwpw/100 WBC (Bld)0.5 %NormalSalem Regional Medical Center Comment on above:Performed By: #### RODRIGO, 3, , CBCA #### [facility] ([id number]) [address] [place] [address] 95207Bvltvyqrvxr (Bld) [#/Vol]0.0 10*3/uLNormal0.0-0.4Sal[facility] Medical CenterComment on above:Performed By: #### RODRIGO, 3, , CBCA #### [facility] ([id number]) [address] [place] [address] 89726Gektcjoaahg/100 WBC (Bld)0.0 %NormalSalem Regional Medical Center Comment on above:Performed By: #### RODRIGO, 3039-04, , CBCA #### [facility] ([id number]) [address] [place] [address] 83003Umtxqupstyo distribution width (RBC) [Ratio]13.7 %Normal 11.5-15.0Sal[facility] Medical CenterComment on above:Performed By: #### RODRIGO, 3039-04, , CBCA #### [facility] ([id number]) [address] [place] [address] 22680Mjkuoihoue (Bld) [Volume fraction]46.1 %Tdepqy05-81VmoTkiktgTexas Health Presbyterian Hospital PlanoComment on above:Performed By: #### RODRIGO, 3, , CBCA #### [facility] ([id number]) [address] [place] [address] 46661Lqxlwyslzu (Bld) [Mass/Vol]15.8 g/gJKcub41.7-15.5PSouthwest General Health CenterComment on above:Performed By: #### RODRIGO, 3, , CBCA #### [facility] ([id number]) [address] [place] [address] 56024Hfktzfnuzsi (Bld) [#/Vol]1.8 10*3/uLNormal1.0-3.5PSouthwest General Health CenterComment on above:Performed By: #### RODRIGO, 3039-3, , CBCA #### [facility] ([id number]) [address] [place] [address] 26153Ugixunqzjbw/100 WBC (Bld)32.3 %NormalSalem Regional Medical Center Comment on above:Performed By: #### RODRIGO, 3, , CBCA #### [facility] ([id number]) [address] [place] [address] 23453KSV (RBC) [Entitic mass]32.2 nlLlulwh28-40TweJsdyctTexas Health Presbyterian Hospital PlanoComment on above:Performed By: #### RODRIGO, 3, , CBCA #### [facility] ([id number]) [address] [place] [address] 57769ORHH (RBC) [Mass/Vol]34.3 g/eJSfobdn28-14WktIddafuSalem Regional Medical CenterComment on above:Performed By: #### RODRIGO, 3, , CBCA #### [facility] ([id number]) [address] [place] [address] 29221KWW (RBC) [Entitic vol]94 fZIrfwen22-199KcnDnrwjv [facility]remont HospitalComment on above:Performed By: #### RODRIGO, 3039-3, , CBCA #### [facility] ([id number]) [address] [place] [address] 38904Tmekauivj (Bld) [#/Vol]0.2 10*3/uLNormal0-0.9[facility] Medical CenterComment on above:Performed By: #### RODRIGO, 3, , CBCA #### [facility] ([id number]) [address] [place] [address] 07908Eqvjjeoer/100 WBC (Bld)3.9 %[facility] Comment on above:Performed By: #### RODRIGO, 3, , CBCA #### [facility] ([id number]) [address] [place] [address] 73537Vglalautitz/100 WBC (Bld)63.3 %[facility] Comment on above:Performed By: #### RODRIGO, 3039-04, , CBCA #### [facility] ([id number]) [address] [place] [address] 19943Vzousmkq mean volume (Bld) [Entitic vol]10.4 fLNormal7-12 [facility] CenterComment on above:Performed By: #### RODRIGO, 3039-04, , CBCA #### [facility] ([id number]) [address] [place] [address] 41176Ahcqazxjk (Bld) [#/Vol]93 10*3/gYKgi967-238MfjWpussvSalem Regional Medical CenterComment on above:Result Comment: PLATELETS REVIEWEDPerformed By: #### RODRIGO, 3, , CBCA #### [facility] ([id number]) [address] [place] [address] 20852TKH COUNT4.91 X10E12/LNormal3.80-5.20[facility] Comment on above:Performed By: #### RODRIGO, 3039-04, , CBCA #### [facility] ([id number]) [address] [place] [address] 69524ULR (Bld) [#/Vol]5.4 10*3/uLNormal4.0-11.0ProTexas Health Presbyterian Hospital PlanoComment on above:Performed By: #### RODRIGO, 3039-3, , CBCA #### [facility] ([id number]) [address] [place] [address] 37127DNXSYSFWZPQOC METABOLIC PANELon 88-73-2128Cvrhbcz [Mass/Vol]4.4 g/dLNormal3.2-5.3PSouthwest General Health CenterComment on above:Performed By: #### RODRIGO, 3039-3, , CBCA #### [facility] ([id number]) [address] [place] [address] 31499DUU [Catalytic activity/Vol]83 U/FKgyvsp77-086KzjKswwvmTexas Health Presbyterian Hospital PlanoComment on above:Performed By: #### RODRIGO, 3039-3, , CBCA #### [facility] ([id number]) [address] [place] [address] 16052DNP [Catalytic activity/Vol]33 U/LHigh0-31ProMedDoctors Hospital Of West CovinaComment on above:Performed By: #### RODRIGO, 3, , CBCA #### [facility] ([id number]) [address] [place] [address] 20103Hcmid gap [Moles/Vol]13 mmol/LNormal5-15ProTexas Health Presbyterian Hospital PlanoComment on above:Performed By: #### RODRIGO, 3039-3, , CBCA #### [facility] ([id number]) [address] [place] [address] 07839FLX [Catalytic activity/Vol]33 U/LNormal0-41ProTexas Health Presbyterian Hospital PlanoComment on above:Performed By: #### RODRIGO, 3039-3, , CBCA #### [facility] ([id number]) [address] [place] [address] 42546Uerhevfcp [Mass/Vol]1.6 mg/dLHigh0.3-1.2PSouthwest General Health CenterComment on above:Performed By: #### RODRIGO, 3039-3, , CBCA #### [facility] ([id number]) [address] [place] [address] 29002Bjwplmm [Mass/Vol]9.5 mg/dLNormal8.5-10.5PSouthwest General Health CenterComment on above:Performed By: #### RODRIGO, 3, , CBCA #### [facility] ([id number]) [address] [place] [address], [place] [address]Ztojtnxd [Moles/Vol]100 mmol/JXzxswc64-389MivTqzqcaTexas Health Presbyterian Hospital PlanoComment on above:Performed By: #### RODRIGO, 3, , CBCA #### [facility] ([id number]) [address] [place] [address] 78148QK3 [Moles/Vol]24 mmol/ZOvahfz93-90OatPcrwcgSouthwest General Health Center Comment on above:Performed By: #### RODRIGO, 3, , CBCA #### [facility] ([id number]) [address] [place] [address] 73486Otiquujfhq [Mass/Vol]0.81 mg/dLNormal0.40-1.00ProTexas Health Presbyterian Hospital PlanoComment on above:Result Comment: METHOD TRACEABLE TO IDMS STANDARD Performed By: #### RODRIGO, 3, , CBCA #### [facility] ([id number]) [address] [place] [address] 31104GCQ/1.73 sq M.predicted among non-blacks MDRD (S/P/Bld) [Vol rate/Area]84 mL/min/{1.73_m2}Normal>59ProTexas Health Presbyterian Hospital PlanoComment on above:Result Comment: Reported eGFR is based on the CKD-EPI 2020 equation that does not use a race coefficient.Performed By: #### RODRIGO, 3039-04, , CBCLilly #### [facility] ([id number]) [address] [place] [address] 31430Kmzkqcx [Mass/Vol]372 mg/zOPdql49-45JzqGsqcdyTexas Health Presbyterian Hospital Plano Comment on above:Performed By: #### RODRIGO, 3039-04, , CBCLilly #### [facility] ([id number]) [address] [place] [address] 31843Itmvpwowt [Moles/Vol]4.2 mmol/LNormal3.5-5.0ProTexas Health Presbyterian Hospital PlanoComment on above:Performed By: #### RODRIGO, 3039-04, , CBCA #### [facility] ([id number]) [address] [place] [address] 42194Ekrwfke [Mass/Vol]7.6 g/dLNormal6.0-8.0ProTexas Health Presbyterian Hospital PlanoComment on above:Performed By: #### RODRIGO, 3039-04, , CBCLilly #### [facility] ([id number]) [address] [place] [address] 37411Uwfpsa [Moles/Vol]137 mmol/PMsywmj097-890HpzIxfmwn Fremont HospitalComment on above:Performed By: #### RODRIGO, 3039-04, , CBCA #### [facility] ([id number]) [address] [place] [address] 50030Lmpw nitrogen [Mass/Vol]17 mg/dLNormal5-23ProTexas Health Presbyterian Hospital PlanoComment on above:Performed By: #### RODRIGO, 3039-04, , CBCA #### [facility] ([id number]) [address] [place] [address], [place] [address]PD ABDOMEN AND PELVIS W CONTon 57-39-0543UU ABDOMEN AND PELVIS W CONTCT ABDOMEN AND PELVIS W CONT CT ABDOMEN [...] of the abdomen without high-grade transition point. Tkhs-pt-kujvizbn colonic stool burden. Nonvisualized appendix. No pericecal inflammatory change. No acute appearing occlusion the majorvisceral vasculature. Multilevel cement augmentation, T12, L1, L3. [...] by Zack Jaquez MD on 03/08/2024 2:02 PMNormalProTexas Health Presbyterian Hospital PlanoLIPASEon 98-97-5092Ynvslc [Catalytic activity/Vol]26 U/LIwutyi36-49 ProMThompson Memorial Medical Center HospitalComment on above:Performed By: #### CMP, 3040-3, 54570-9, CBCA #### [facility] ([id number]) [address] [place] [address] 43317Csvxhsk (P quynh) [Moles/Vol]on 16-18-1991Zizgwaf [Moles/Vol]1.2 mmol/LNormal0.4-2.0Sal[facility] Regional Medical CenterComment on above:Performed By: #### 83693-2 #### [facility] ([id number]) [address] [place] [address] 54377PGOXGIE W/REFLEX2.1 mmol/LHigh0.4-2.0[facility] Comment on above:Performed By: #### 27079-8 #### [facility] ([id number]) [address] [place] [address] 67018JBYLOBCRYkd 73-41-1655Xyukhpnmy [Mass/Vol]1.6 mg/dLLow1.8-2.6 ProMedica Mission Community HospitalComment on above:Performed By: #### CMP, 3040-3, 54933-7, CBCA #### [facility] ([id number]) [address] [place] [address] 14414PL CTA COR ARTERIES W OR WO SCORINGon 49-59-8931FG CTA COR ARTERIES W OR WO SCORINGCT CTA COR ARTERIES W OR WO SCORING CLINICAL INFORMATION: Chest pain. TECHNIQUE: Computed tomography (CT) of the heart was obtained using electrocardiography (ECG) triggering. 100 mL of Omni 350 contrast was administered intravenously. In preparation for the examination, the patient received 20 mg oral metoprolol for heart rate/rhythm control and 0.4 mg sublingual nitroglycerintablet for coronary vasodilation. There were no complications 3-D volume rendered maximum intensityprojection images were generated and reviewed under concurrent [...] using the interactive ASENCIO form found at http://www.asencio-nhlbi.org} Individual major vessel AJ-130 scores are: LM [...] cardiac structures were co-interpreted by Dr. Kumar Satno MD of the department of radiology and Dr. Chavez of the department of cardiology. The extracardiac structures including the lungs were solely interpreted by Dr. Kumar Santo MD of the department of radiology. Calcium Score interpretation and guidelines for asymptomatic individuals, 45 - 75 years of age are as follows: Estimated Risk of a Total Score Relative Risk Coronary Event Each Year 0 very low risk 2 per 1000 1-10 low risk 5 per 1000 11-100 intermediate risk 5 to 20 per 1000 101-400 moderately high risk more than 2 per 100 over 400 high risk between 2 and 5 per 100; approximately 15% chance of significant blockages; consideration should be given to obtaining stress echo or stress nuclear testing. Finalized by Kumar Santo MD on 02/15/2024 6:02 PMNormalProPremier HealthCREATININEon 05-13-9680Mojzgzpifm [Mass/Vol]0.81 mg/dLNormal0.40-1.00 [facility] Regional Medical CenteredicCanyon Ridge HospitalComment on above:Result Comment: METHOD TRACEABLE TO IDMS STANDARDPerformed By: #### GRADER OPERATOR #### [facility] ([id number]) [address] [place], [place] [address]QNF/1.73 sq M.predicted among non-blacks MDRD (S/P/Bld) [Vol rate/Area]84 mL/min/{1.73_m2}Normal>59ProTexas Health Presbyterian Hospital PlanoComhillsdale hospital on above:Result Comment: Reported eGFR is based on the CKD-EPI 2020 equation that does not use a race coefficient.Performed By: #### GRADER OPERATOR #### [facility] ([id number]) [address] [place], [place] [address]JZ REMOVE PORTon 80-85-2882UM REMOVE PORTIR REMOVE PORT CLINICAL INDICATION: Completed therapy, port [...] be guaranteed. The procedure is indicated and therisks are acceptable. Consent was obtained. PROCEDURE: Removal [...] small incision was then closed with 3-0 Vicrylinterrupted deep sutures. The skin was closed with 4-0 Vicryl running subcuticular stitch. Dermabond and Steri-Strips were placed. A sterile dressing was applied. The patient tolerated the procedure well and there were no immediate complications. FINDINGS: Successful complete removal of right dual lumen Port-A-Cath. IMPRESSION: Successful removal of Port-A-Cath. Finalized by Oscar Chua on 06/20/2023 3:31 PMNormalClermont County Hospital Office Visiton 68-28-2477Eejgwn-up [id number] Madhavi Kay 1965 F Date Provider Department Center 02/15/2022 BLANCA VELAZQUEZ [facility] SURG Second Fl Family History Problem Relation Age of Onset Hypertension Mother Hypertension Father Family Status - Relation Status Age at Mother Father Level of Service:99469 [place] OFFICE/OUTPATIENT NEW LOW [facility] 30-44 MINUTES Reason for Visit and Comments: Consult [484] - Nasal fracture 1 yr ago s/p fall.NormalUnWexner Medical CenterCULTURE URINEon 56-09-5565UBJAJUH URINEIsolate 1 Klebsiella pneumoniae >100,000 cfu/mL of ORGANISM 1 Klebsiella pneumoniae ANTIBIOTIC M.I.C RX STATUS Ampicillin 16 R F Ampicillin/Sulbactam 4 S F Piperacillin/Tazobactam <=4 S F Cefazolin <=4 S F Ceftazidime <=1 S F Ceftriaxone <=1 S F Ertapenem <=0.5 S F Imipenem <=0.25 S F Amikacin <=2 S F Gentamicin <=1 S F Tobramycin <=1 S F Ciprofloxacin <=0.25 S F Levofloxacin <=0.12 S F Nitrofurantoin <=16 S F Trimethoprim/Sulfamethoxazole <=20 S FNormalRegional Medical CenterComment on above:Performed By: #### URCX #### [facility] [address] [address] [address] Robert Lou URINE PROFILEon 43-51-3726Qyjlwowon Ql (U)NegativeNormal NEGATIVERegional Medical CenterComhillsdale hospital on above:Performed By: #### ERUWilian, UMICRO #### [facility] [address] [address] [address] Robert Pylearity (U)SL CLOUDYAbnormalCLEARThe [facility] HospitalComment on above:Performed By: #### SARAVANAN, UMICRO #### [facility] [address] [address] [address] Robert Zhu (U)LT. YELLOWNormalYELLOWRegional Medical CenterComhillsdale hospital on above:Performed By: #### ERUWilian UMICRO #### [facility] [address] [place] [address] Dr. Robert Novak micrscopic examination will be performed if indicated. NormalThe [facility] HospitalComment on above:Performed By: #### SARAVANAN UMICRO #### [facility] [address] [place] [address] Dr. Robert BuchananGlucose Ql (U)1000 mg/dlAbnormalNEGATIVERegional Medical Center Comment on above:Performed By: #### SARAVANAN, UMICRO #### [facility] [address] [place] [address] Dr. Robert BuchananHemoglobin Ql (U)SMALLAbnormalNEGATIVERegional Medical Center Comment on above:Performed By: #### SARAVANAN, UMICRO #### [facility] [address] [place] [address] Dr. Robert BuchananKetones Ql (U)NegativeNormalNEGATIVERegional Medical CenterComhillsdale hospital on above:Performed By: #### ERUWilian, UMICRO #### [facility] [address] [place] [address] Dr. Robert BuchananLEUKOCYTESSMALLAbnormalNEGATIVERegional Medical CenterComhillsdale hospital on above:Performed By: #### SARAVANAN UMICRO #### [facility] [address] [address] [address] Robert Hollis Ql (U)PositiveAbnormalNEGATIVERegional Medical Center Comment on above:Performed By: #### MARTIN COE #### [facility] [address] [address] [address] Robert BuchananpH (U)5.5 [pH]Normal5-9The [facility] HospitalComment on above: Performed By: #### MARTIN COE #### [facility] [address] [place] [address] Dr. Robert BuchananSPEC GRAVITY1.736Leoscc5.005-<=1.025The [facility] HospitalComment on above:Performed By: #### MARTIN COE #### [facility] [address] [place] [address] Dr. Robert Villar PROTEINNegativeNormalNEGATIVE/ TRACERegional Medical Center Comment on above:Performed By: #### MARTIN COE #### [facility] [address] [place] [address] Dr. Robert Vega MICRO INDINDICATEDNormalThMemorial Health SystemComment on above: Performed By: #### MARTIN COE #### [facility] [address] [place] [address] Dr. Robert Westfall Qn (U)0.2 {Rachael'U}/dLNormal0.2 - 1.0The [facility] HospitalComment on above:Performed By: #### MARTIN COE #### [facility] [address] [place] [address] Dr. Robert BuchananPOINT OF CARE GLUCOSEon 15-84-3085Lzlrwlx [Mass/Vol]335 mg/dL Critically ozrn63-603Dfn [facility] HospitalComment on above:Performed By: #### POCGLUC #### [facility] [address] [place] [address] Dr. Robert Jose MICROSCOPIC ONLYon 78-88-7515HMTGNBOBBYLRRHPCIjnjisfjWDJM SEENRegional Medical CenterComment on above:Performed By: #### SARAVANAN UMICRO #### [facility] [address] [address] [address] Robert Sanders identified Cx Nom (U)INDICATEDNoalThMemorial Health SystemComhillsdale hospital on above:Performed By: #### SARAVANAN UMICRO #### [facility] [address] [address] [address] Robert DeleonE SEENNormalNONE SEENRegional Medical CenterComhillsdale hospital on above:Performed By: #### SARAVANAN UMICRO #### [facility] [address] [address] [address] Robert Smithystals LM Nom (Urine sed)NONE SEENNormalNONE SEENRegional Medical CenterComhillsdale hospital on above:Performed By: #### SARAVANAN UMICRO #### [facility] [address] [place] [address] Dr. Robert Parrishthelial cells LM Ql (Urine sed)FEWAbnormalNONE SEEN /RAREThe [facility] HospitalComhillsdale hospital on above:Performed By: #### SARAVANAN UMICRO #### [facility] [address] [address] [address] Robert QuinteroUSNONE SEENPemiscot Memorial Health SystemsE [facility] HospitalComhillsdale hospital on above:Performed By: #### SARAVANAN UMICRO #### [facility] [address] [place] [address] Dr. Robert BuchananOkgmiKFH0-7Ofdmae3-8Viz [facility] on above:Performed By: #### SARAVANAN UMICRO #### [facility] [address] [place] [address] Dr. Robert BuchananWBC5-10AbnormalNONE SEENRegional Medical CenterComhillsdale hospital on above: Performed By: #### SARAVANAN UMICRO #### [facility] [address] [place] [address] Dr. Robert GarayBV, Quant. PCRon [id number], Quant. Source.BLOODNormalMercy Eden Medical CenterComment on above:Performed By: #### ACMVDN #### [address] [phone] Second Grade Teacher: Kevin Sanches MD [address] [phone] Second Grade Teacher: Satinder Richardson MD #### AATRPH, AASMF #### [address] [phone] Second Grade Teacher: Satinder Richardson MD #### TRFE, ANASCN, FERI, PHEP, CER, LIVP, AMAB #### [address] [id number] Second Grade Teacher: Cisco Andrade MD #### PT #### [address] [phone] Second Grade Teacher: Kevin Sanches MD #### AEBVQ #### [address] [phone] Second Grade Teacher: Cisco Andrade MD [address] [phone] Second Grade Teacher: JOANNE Ruiz Antitrypsin Phenoon 88-96-6881X1 Antitryp CqcwgksheP3U2BywlwxVvndkCleveland Clinic FoundationComment on above:Result Comment: (NOTE) The patient appears to have a normal phenotype. All M alleles (including subtypes M1, M2, and M3) produce normal serum concentrations of fipak-3-bccvxbwa inhibitor and are not associated with clinical disease. Caution in interpretation is advised if the patient has been transfused within the previous 21 days. Performed By: [facility] [address] [place] [address] Electron Tube Assembler: Reza Guajardo MD, PhDPerformed By: #### ACMVDN #### [address] [id number] Second Grade Teacher: Kevin Sanches MD [facility] [address] [place] [address] Second Grade Teacher: Satinder Richardson MD #### TOMAS AASMF #### [facility] [address] [place] [address] Second Grade Teacher: Satinder Richardson MD #### TRFE, ANASCN, FERI, PHEP, CER, LIVP, AMAB #### [address] [phone] Second Grade Teacher: Cisco Andrade MD #### PT #### [address] [address] Second Grade Teacher: Kevin Sanches MD #### AEBVQ #### [address] [phone] Second Grade Teacher: Cisco Andrade MD [address] [address] Second Grade Teacher: Satinder Richardson MDA1 Rlywmvwhkne599 mg/yYHxific31-416WkrluCleveland Clinic FoundationComment on above:Result Comment: To convert to umol/L, multiply mg/dL by 0.185Performed By: #### ACMVDN #### [address] [phone] Second Grade Teacher: Kevin Sanches MD [facility] [address] [place] [address] Second Grade Teacher: Satinder Richardson MD #### AATCLIFFORD AASMF #### [facility] [address] [place] [address] Second Grade Teacher: Satinder Richardson MD #### TRFE, ANASCN, FERI, PHEP, CER, LIVP, AMAB #### [address] [phone] Second Grade Teacher: Cisco Andrade MD #### PT #### [address] [address] Second Grade Teacher: Kevin Sanches MD #### AEBVQ #### [address] [phone] Second Grade Teacher: Cisco Andrade MD [address] [phone] Second Grade Teacher: Manan Ruizi-Mitochondrial Abon 93-41-9389Dqsv- Mitochondrial Ab1.1 U/mLNormal0.0-4.0Cleveland Clinic FoundationComment on above:Result Comment: Reference Range: <4.0 Negative 4.0-6.0 Equivocal >6.0 Positive When results are Equivocal, it is recommended to retest after 8-12 weeks. Performed By: #### ACMVDN #### [address] [address] Second Grade Teacher: Kevin Sanches MD [address] [phone] Second Grade Teacher: Satinder Richardson MD #### AATRPH, AASMF #### [facility] [address] [place] [address] [phone] Second Grade Teacher: Satinder Richardson MD #### TRFE, ANASCN, FERI, PHEP, CER, LIVP, AMAB #### [address] [phone] Second Grade Teacher: Cisco Andrade MD #### PT #### [address] [address] Second Grade Teacher: Kevin Sanches MD #### AEBVQ #### [address] [phone] Second Grade Teacher: Cisco Andrade MD [facility] [address] [place] [address] [phone] Second Grade Teacher: RONEL Ruiz Quant by PCRon 84-40-1066MFC by PCR InterpNot detectedNormalNot Adams County HospitalComment on above: Result Comment: (NOTE) NOT DETECTED - A negative result does not rule out the presence of PCR inhibitors in the patient specimen or assay specific nucleic acid in concentrations below the level of detection by the assay. Performed by [facility], [address] [place] [address] [email or web address], Reza Guajardo MD, PHD, Lab. DirectorPerformed By: #### ACMVDN #### [address] [address] Second Grade Teacher: [place] [address] Second Grade Teacher: Satinder Richardson MD #### AATRPH, AASMF #### [place] [address] Second Grade Teacher: Satinder Richardson MD #### TRFE, ANASCN, FERI, PHEP, CER, LIVP, AMAB #### [address] [address] Second Grade Teacher: Cisco Andrade MD #### PT #### [address] [phone] Second Grade Teacher: Kevin Sanches MD #### AEBVQ #### [address] [phone] Second Grade Teacher: [place] [address] Second Grade Teacher: RONEL Ruiz Quant<2.6NormalCleveland Clinic FoundationComment on above:Result Comment: (NOTE) INTERPRETIVE INFORMATION: Cytomegalovirus, Quantitative PCR The quantitative [...] developed and its performance characteristics determined by [employer]. It has not been cleared or approved by the [place] Food and Drug Administration. This test was performed in a CLIA certified laboratory and is intended for clinical purposes.Performed By: #### ACMVDN #### [place] [address] Second Grade Teacher: Kevin Sanches MD [address] [phone] Second Grade Teacher: Satinder Richardson MD #### AATRPHGRAYF #### [address] [phone] Second Grade Teacher: Satinder Richardson MD #### TRFE, ANASCN, FERI, PHEP, CER, LIVP, AMAB #### [address] [phone] Second Grade Teacher: Cisco Andrade MD #### PT #### [address] [address] Second Grade Teacher: Kevin Sanches MD #### AEBVQ #### [address] [phone] Second Grade Teacher: Cisco Andrade MD [address] [phone] Second Grade Teacher: NICHOL RuizMV Quant Copy/mL<390NormalCleveland Clinic FoundationComment on above:Performed By: #### ACMVDN #### [address] [address] Second Grade Teacher: Kevin Sanches MD [facility] [address] [place] [address] [phone] Second Grade Teacher: Satinder Rihcardson MD #### TOMAS AASMF #### [facility] [address] [place], [place] [phone] Second Grade Teacher: Satinder Richardson MD #### ELLYN, SGN, FERI, PHEP, CER, LIVP, AMAB #### [address] [phone] Second Grade Teacher: Cisco Andrade MD #### PT #### [address] [address] Second Grade Teacher: Kevin Sanches MD #### AEBVQ #### [address] [phone] Second Grade Teacher: Cisco Andrade MD [address] [phone] Second Grade Teacher: NICHOL RuizMV Quant IU/mL<227NormalCleveland Clinic FoundationComment on above:Performed By: #### ACMVGERALD #### [address] [address] Second Grade Teacher: Kevin Sanches MD [facility] [address] [place], [place] [phone] Second Grade Teacher: Satinder Richardson MD #### AATCLIFFORD AASMF #### [facility] [address] [place] [address] Second Grade Teacher: Satinder Richardson MD #### TRFE, SGN, FERI, PHEP, CER, LIVP, AMAB #### [address] [address] Second Grade Teacher: Cisco Andrade MD #### PT #### [address] [address] Second Grade Teacher: Kevin Sanches MD #### AEBVQ #### [address] [address] Second Grade Teacher: Cisco Andrade MD [address] [phone] Second Grade Teacher: NICHOL Ruiz Quant Log IU/mL<2.4NormalMercy Eden Medical CenterComment on above:Performed By: #### ACMVDN #### [address] [address] Second Grade Teacher: Kevin Sanches MD [facility] [address] [place] [address] [phone] Second Grade Teacher: Satinder Richardson MD #### AATRPH AASMF #### [facility] [address] [place], [place] [phone] Second Grade Teacher: Satinder Richardson MD #### ELLYN, ROSALBA, OSBALDOI, PHEP, CER, LIVP, AMAB #### [address] [address] Second Grade Teacher: Cisco Andrade MD #### PT #### [address] [address] Second Grade Teacher: Kevin Sanches MD #### AEBVQ #### [address] [address] Second Grade Teacher: Cisco Andrade MD [facility] [address] [place], [place] [phone] Second Grade Teacher: JAROCHO RuizV, Quant. PCRon 05-07-0555INH, Quant. Copy/mL <390NormalMercy Eden Medical CenterComment on above:Performed By: #### ACMVDN #### [place] [address] Second Grade Teacher: [place] [address] Second Grade Teacher: Satinder Richardson MD #### AATRPH, AASMF #### [place] [address] Second Grade Teacher: Satinder Richardson MD #### TRFE, ANASCN, FERI, PHEP, CER, LIVP, AMAB #### [address] [phone] Second Grade Teacher: Cisco Andrade MD #### PT #### [place] [address] Second Grade Teacher: Kevin Sanches MD #### AEBVQ #### [address] [address] Second Grade Teacher: [place] [address] Second Grade Teacher: JAROCHO RuizV, Quant. InterpNot detectedNormalNot Detected [facility] Clinic FoundationComment on above:Result Comment: (NOTE) NOT DETECTED - A negative result does not rule out the presence of PCR inhibitors in the patient specimen or assay specific nucleic acid in concentrations below the level of detection by the assay. Performed by [facility] [place] [id number] [email or web address], Reza Guajardo MD, PHD, Lab. DirectorPerformed By: #### ACMVDN #### [facility] [facility] [address] [place], [place] [id number] Second Grade Teacher: Kevin Sanches MD [address] [phone] Second Grade Teacher: Satinder Richardson MD #### AATRPH, AASMF #### [address] [phone] Second Grade Teacher: Satinder Richardson MD #### TRFE, ANASCN, FERI, PHEP, CER, LIVP, AMAB #### [address] [phone] Second Grade Teacher: Cisco Andrade MD #### PT #### [address] [phone] Second Grade Teacher: Kevin Sanches MD #### AEBVQ #### [address] [phone] Second Grade Teacher: Cisco Andrade MD [address] [address] Second Grade Teacher: Satinder Richardson MDEBV, Quant. Log<2.6NormalCleveland Clinic FoundationComment on above:Result Comment: (NOTE) INTERPRETIVE INFORMATION: Bree Doherty Virus by Quantitative [...] developed and its performance characteristics determined by [employer]. It has not been cleared or approved by the [place] Food and Drug Administration. This test was performed in a CLIA certified laboratory and is intended for clinical purposes.Performed By: #### ACMVDN #### [address] [phone] Second Grade Teacher: Kevin Sanches MD [facility] [address] [place] [address] Second Grade Teacher: Satinder Richardson MD #### GRAY MARINF #### [facility] [address] [place] [address] Second Grade Teacher: Satinder Richardson MD #### TRFE, ANASCN, FERI, PHEP, CER, LIVP, AMAB #### [address] [phone] Second Grade Teacher: Cisco Andrade MD #### PT #### [address] [phone] Second Grade Teacher: Kevin Sanches MD #### AEBVQ #### [address] [phone] Second Grade Teacher: Cisco Andrade MD [address] [phone] Second Grade Teacher: ALESSANDRA Ruiz Screenon 70-88-8385BMD ScreenNegativeNormal St. Anthony's HospitalComment on above:Performed By: #### ACMVGERALD #### [address] [address] Second Grade Teacher: Kevin Sanches MD [facility] [address] [place] [address] [phone] Second Grade Teacher: Satinder Richardson MD #### GRAY MARINF #### [facility] [address] [place] [address] Second Grade Teacher: Satinder Richardson MD #### TRFE, ANASCN, FERI, PHEP, CER, LIVP, AMAB #### [address] [address] Second Grade Teacher: Cisco Andrade MD #### PT #### [address] [address] Second Grade Teacher: Kevin Sanches MD #### AEBVQ #### [address] [phone] Second Grade Teacher: Cisco Andrade MD [facility] [address] [place], [place] [phone] Second Grade Teacher: Russell Ruiz-dsDNA0.9 IU/mLNormal<10.0Cleveland Clinic FoundationComment on above:Result Comment: Reference Range: <10.0 Negative 10.0-15.0 Equivocal >15.0 PositivePerformed By: #### ACMVDN #### [address] [address] Second Grade Teacher: Kevin Sanches MD [facility] [address] [place] [address] [phone] Second Grade Teacher: Satinder Richardson MD #### AATUVALDOH AASMF #### [facility] [address] [place] [address] [phone] Second Grade Teacher: Satinder Richardson MD #### TRFE, ANARICHARDN, FERI, PHEP, CER, LIVP, AMAB #### [address] [phone] Second Grade Teacher: Cisco Andrade MD #### PT #### [address] [phone] Second Grade Teacher: Kevin Sanches MD #### AEBVQ #### [address] [phone] Second Grade Teacher: Cisco Andrade MD [facility] [address] [place] [address] [place] [phone] Second Grade Teacher: Satinder Richardson MDENA Screen0.4 U/mLNormal<0.7Cleveland Clinic FoundationComment on above:Result Comment: Reference Range: <0.7 Negative 0.7-1.0 Equivocal >1.0 Positive JOYCE Screen includes U1RNP,RNP70,Sm,Ro(SS-A),La(SS-B),CENP,Scl-70,Valeria-1Performed By: #### ACMVDN #### [address] [phone] Second Grade Teacher: Kevin Sanches MD [address] [phone] Second Grade Teacher: Satinder Richardson MD #### AATRPH, AASMF #### [place] [address] Second Grade Teacher: Satinder Richardson MD #### TRFE, ANASCN, FERI, PHEP, CER, LIVP, AMAB #### [place] [phone] Second Grade Teacher: Cisco Andrade MD #### PT #### [place] [address] Second Grade Teacher: Kevin Sanches MD #### AEBVQ #### [place] [phone] Second Grade Teacher: Cisco Andrade MD [address] [phone] Second Grade Teacher: CHHAYA Ruizmooth Muscle Abon 39-47-3528Lhfpvi Muscle Ab11 UnitsNormal0-19Cleveland Clinic FoundationComment on above:Result Comment: (NOTE) If F-Actin (Smooth Muscle) Antibody, IgG is [...] suspicion for AIH is strong. Performed By: [employer] [address] [place], [place] [phone] Electron Tube Assembler: Reza Guajardo MD, PhDPerformed By: #### ACMVDN #### [address] [address] Second Grade Teacher: Kevin Sanches MD [address] [address] Second Grade Teacher: Satinder Richardson MD #### AATCLIFFORD, AASMF #### [address] [address] Second Grade Teacher: Satinder Richardson MD #### TRFE, ANASCN, FERI, PHEP, CER, LIVP, AMAB #### [address] [phone] Second Grade Teacher: Cisco Andrade MD #### PT #### [address] [address] Second Grade Teacher: Kevin Sanches MD #### AEBVQ #### [address] 6806208 Second Grade Teacher: Cisco Andrade MD [address] [phone] Second Grade Teacher: NICHOL Ruizeruloplasminon 88-37-6886Mcbsqnefpxfrw29 mg/dL Swcjez97-03SabvhCleveland Clinic FoundationComment on above:Performed By: #### ACMVDN #### [address] [phone] Second Grade Teacher: Kevin Sanches MD [address] [phone] Second Grade Teacher: Satinder Richardson MD #### NELA MARIN #### [address] [address] Second Grade Teacher: Satinder Richardson MD #### TRFE, ANASCN, FERI, PHEP, CER, LIVP, AMAB #### [address] [phone] Second Grade Teacher: Cisco Andrade MD #### PT #### [address] 0897851 Second Grade Teacher: Kevin Sanches MD #### AEBVQ #### [address] 6057208 Second Grade Teacher: Cisco Andrade MD [address] [phone] Second Grade Teacher: Satinder Richardson MDFerritinon 93-99-9911Lzbojctg [Mass/Vol]86 ng/mL Rqslkl50-357VbzptCleveland Clinic FoundationComment on above:Performed By: #### ACMVDN #### [address] 1537051 Second Grade Teacher: Kevin Sanches MD [address] [phone] Second Grade Teacher: Satinder Richardson MD #### AATRPH, AASMF #### [facility] [address] [place] [address] Second Grade Teacher: Satinder Richardson MD #### ROSALBA RAGLAND FERI, PHEP, CER, LIVP, AMAB #### [address] [phone] Second Grade Teacher: Cisco Andrade MD #### PT #### [address] [phone] Second Grade Teacher: Kevin Sanches MD #### AEBVQ #### [address] [address] Second Grade Teacher: Cisco Andrade MD [address] [address] Second Grade Teacher: Satinder Richardson MDLiver Profileon 26-25-1580Lbpvxxx [Mass/Vol]4.3 g/dLNormal3.5-5.2[facility] Eden Medical CenterComment on above:Performed By: #### ACMVDN #### [address] [address] Second Grade Teacher: Kevin Sanches MD [address] [phone] Second Grade Teacher: Satinder Richardson MD #### NELA MARIN #### [facility] [address] [place], [place] [phone] Second Grade Teacher: Satinder Richardson MD #### ROSALBA RAGLAND FERI, PHEP, CER, LIVP, AMAB #### [address] [phone] Second Grade Teacher: Cisco Andrade MD #### PT #### [address] [phone] Second Grade Teacher: Kevin Sanches MD #### AEBVQ #### [address] 7011808 Second Grade Teacher: Cisco Andrade MD [facility] [address] [place] [address] Second Grade Teacher: Satinder Richardson MDAlbumin/Glob Ratio1.3Ppkxkq2.0-2.5Cleveland Clinic FoundationComment on above:Performed By: #### ACMVDN #### [address] [phone] Second Grade Teacher: Kevin Sanches MD [facility] [address] [place], [place] [phone] Second Grade Teacher: Satinder Richardson MD #### AATRPH, AASMF #### [facility] [address] [place] [address] [phone] Second Grade Teacher: Satinder Richardson MD #### TRFE, ANASCN, FERI, PHEP, CER, LIVP, AMAB #### [address] [address] Second Grade Teacher: Cisco Andrade MD #### PT #### [address] [address] Second Grade Teacher: Kevin Sanches MD #### AEBVQ #### [address] [phone] Second Grade Teacher: Cisco Andrade MD [facility] [address] [place], [place] [phone] Second Grade Teacher: Dov Ruizline Phos69 U/ANpauiy53-606FapohCleveland Clinic FoundationComment on above:Performed By: #### ACMVDN #### [address] 2660451 Second Grade Teacher: Kevin Sanches MD [facility] [address] [place] [address] Second Grade Teacher: Satinder Richardson MD #### NELA MARIN #### [facility] [address] [place] [address] Second Grade Teacher: Satinder Richardson MD #### TRFE, SGN, FERI, PHEP, CER, LIVP, AMAB #### [address] 0817508 Second Grade Teacher: Cisco Andrade MD #### PT #### [address] [phone] Second Grade Teacher: Kevin Sanches MD #### AEBVQ #### [address] 7840008 Second Grade Teacher: Cisco Andrade MD [facility] [address] [place] [address] Second Grade Teacher: RAGINI Ruiz [Catalytic activity/Vol]33 U/LNormal5-33Cleveland Clinic FoundationComment on above:Performed By: #### ACMVDN #### [address] [phone] Second Grade Teacher: Kevin Sanches MD [facility] [address] [place] [address] Second Grade Teacher: Satinder Richardson MD #### NELA MARIN #### [facility] [address] [place] [address] Second Grade Teacher: Satinder Richardson MD #### ELLYN, ROSALBA, FERI, PHEP, CER, LIVP, AMAB #### [address] [address] Second Grade Teacher: Cisco Andrade MD #### PT #### [place] [address] Second Grade Teacher: Kevin Sanches MD #### AEBVQ #### [address] [address] Second Grade Teacher: Cisco Andrade MD [address] [phone] Second Grade Teacher: Satinder Richardson MDAST [Catalytic activity/Vol]51 U/LHigh<32[facility] Eden Medical CenterComment on above:Performed By: #### ACMVDN #### [place] [address] Second Grade Teacher: Kevin Sanches MD [address] [phone] Second Grade Teacher: Satinder Richardson MD #### AATCLIFFORD, AASMF #### [address] [phone] Second Grade Teacher: Satinder Richardson MD #### TRFE, ANASCN, FERI, PHEP, CER, LIVP, AMAB #### [address] [address] Second Grade Teacher: Cisco Andrade MD #### PT #### [place] [address] Second Grade Teacher: Kevin Sanches MD #### AEBVQ #### [address] [address] Second Grade Teacher: Cisco Andrade MD [address] [phone] Second Grade Teacher: Satinder Richardson MDBilirubin [Mass/Vol]0.69 mg/dLNormal0.3-1.2[facility] Eden Medical CenterComment on above:Performed By: #### ACMVDN #### [address] 7094151 Second Grade Teacher: Kevin Sanches MD [facility] [address] [place], [place] [phone] Second Grade Teacher: Satinder Richardson MD #### NELA MARIN #### [facility] [address] [place] [address] Second Grade Teacher: Satinder Richardson MD #### TRFE, ANASCN, FERI, PHEP, CER, LIVP, AMAB #### [address] [phone] Second Grade Teacher: Cisco Andrade MD #### PT #### [address] 1772251 Second Grade Teacher: Kevin Sanches MD #### AEBVQ #### [address] [phone] Second Grade Teacher: Cisco Andrade MD [address] [address] Second Grade Teacher: Satinder Richardson MDBilirubin, Indirect0.52 mg/dLNormal0.00-1.00Cleveland Clinic FoundationComment on above:Performed By: #### ACMVDN #### [address] [phone] Second Grade Teacher: Kevin Sanches MD [facility] [address] [place], [place] [phone] Second Grade Teacher: Satinder Richardson MD #### NELA MARIN #### [facility] [address] [place] [address] Second Grade Teacher: Satinder Richardson MD #### TRFE, ANASCN, FERI, PHEP, CER, LIVP, AMAB #### [address] [address] Second Grade Teacher: Cisco Andrade MD #### PT #### [address] 4109251 Second Grade Teacher: Kevin Sanches MD #### AEBVQ #### [address] [address] Second Grade Teacher: Cisco Andrade MD [address] [phone] Second Grade Teacher: Satinder Richardson MDBilirubin.indirect [Mass/Vol]0.17 mg/dLNormal <0.31[facility] Systemcy Eden Medical CenterComment on above:Performed By: #### ACMVDN #### [address] [address] Second Grade Teacher: Kevin Sanches MD [address] [phone] Second Grade Teacher: Satinder Richardson MD #### AATCLIFFORD, AASMF #### [address] [phone] Second Grade Teacher: Satinder Richardson MD #### TRFE, ANASCN, FERI, PHEP, CER, LIVP, AMAB #### [address] [address] Second Grade Teacher: Cisco Andrade MD #### PT #### [address] 7104551 Second Grade Teacher: Kevin Sanches MD #### AEBVQ #### [address] [phone] Second Grade Teacher: Cisco Andrade MD [address] [phone] Second Grade Teacher: MALENA Ruizrotein [Mass/Vol]6.9 g/dLNormal6.4-8.3[facility] Medical CenterComment on above:Performed By: #### ACMVDN #### [address] [address] Second Grade Teacher: Kevin Sanches MD [address] [phone] Second Grade Teacher: Satinder Richardson MD #### NELA MARIN #### [facility] [address] [place] [address] [phone] Second Grade Teacher: Satinder Richardson MD #### TRFE, ANASCN, FERI, PHEP, CER, LIVP, AMAB #### [address] [phone] Second Grade Teacher: Cisco Andrade MD #### PT #### [address] 6493851 Second Grade Teacher: Kevin Sanches MD #### AEBVQ #### [address] [phone] Second Grade Teacher: Cisco Andrade MD [address] [phone] Second Grade Teacher: Satinder Richardson MDTransferrinon 96-43-5906Bvghfdygksz [Mass/Vol]248 mg/vVUjgfrb618-913Sgfef Eden Medical CenterComment on above:Performed By: #### ACMVDN #### [address] 0078351 Second Grade Teacher: Kevin Sanches MD [address] [phone] Second Grade Teacher: Satinder Richardson MD #### NELA MARIN #### [facility] [address] [place] [address] Second Grade Teacher: Satinder Richardson MD #### TRFE, ANASCN, FERI, PHEP, CER, LIVP, AMAB #### [facility] [address] [place] [address] Second Grade Teacher: Cisco Andrade MD #### PT #### [address] [phone] Second Grade Teacher: Kevin Sanches MD #### AEBVQ #### [facility] [address] [place] [address] [phone] Second Grade Teacher: Cisco Andrade MD [facility] [address] [place], [place] [phone] Second Grade Teacher: Satinder Richardson MDUS LIVERon 55-25-2880IY LIVEREXAMINATION: RIGHT UPPER QUADRANT ULTRASOUND 09/07/2021 10:07 am [...] Signed by: Eli Pantoja MD 09/08/21 Final resultNoWestern Reserve HospitalCMV Quant by PCRon 09-07-2021 CMV Source.BLOODNormCleveland Clinic Children's Hospital for RehabilitationComment on above:Performed By: #### ACMVDN #### [address] [phone] Second Grade Teacher: Kevin Sanches MD [address] [phone] Second Grade Teacher: Satinder Richardson MD #### NELA MARIN #### [facility] [address] [place] [address] [phone] Second Grade Teacher: Satinder Richardson MD #### ELLYN, ROSALBA, FERI, PHEP, CER, LIVP, AMAB #### [address] [phone] Second Grade Teacher: Cisco Andrade MD #### PT #### [address] [address] Second Grade Teacher: Kevin Sanches MD #### AEBVQ #### [address] [phone] Second Grade Teacher: Cisco Andrade MD [address] [phone] Second Grade Teacher: Satinder Richardson MDHeUNC Health Blue Ridge 13-49-2227Ons A Ab,IgM Non-ReactiveNormalNRCleveland Clinic FoundationComment on above:Performed By: #### ACMVDN #### [address] [address] Second Grade Teacher: Kevin Sanches MD [address] [phone] Second Grade Teacher: Satinder Richardson MD #### NELA MARIN #### [facility] [address] [place] [address] [phone] Second Grade Teacher: Satinder Richardson MD #### TRFE, ANASCN, FERI, PHEP, CER, LIVP, AMAB #### [address] [address] Second Grade Teacher: Cisco Andrade MD #### PT #### [address] [address] Second Grade Teacher: Kevin Sanches MD #### AEBVQ #### [address] [address] Second Grade Teacher: Cisco Andrade MD [facility] [address] [place] [address] [phone] Second Grade Teacher: Dori Ruiz B Core Ab,IgMNon-ReactiveNormalNRMercy Eden Medical CenterComment on above:Performed By: #### ACMVDN #### [address] [address] Second Grade Teacher: Kevin Sanches MD [facility] [address] [place] [address] Second Grade Teacher: Satinder Richardson MD #### AATRPH AASMF #### [facility] [address] [place], [place] [phone] Second Grade Teacher: Satinder Richardson MD #### TRFE, SGN, FERI, PHEP, CER, LIVP, AMAB #### [address] [address] Second Grade Teacher: Cisco Andrade MD #### PT #### [address] 3855451 Second Grade Teacher: Kevin Sanches MD #### AEBVQ #### [address] [address] Second Grade Teacher: Cisco Andrade MD [facility] [address] [place] [address] Second Grade Teacher: Dori Ruiz Surf AgNon-ReactiveDayton Osteopathic HospitalComment on above:Performed By: #### ACMVDN #### [address] [address] Second Grade Teacher: Kevin Sanches MD [address] [address] Second Grade Teacher: Satinder Richardson MD #### AATRPH, AASMF #### [facility] [address] [place] [address] Second Grade Teacher: Satinder Richardson MD #### TRFE, ANASCN, FERI, PHEP, CER, LIVP, AMAB #### [address] [phone] Second Grade Teacher: Cisco Andrade MD #### PT #### [address] [phone] Second Grade Teacher: Kevin Sanches MD #### AEBVQ #### [address] [address] Second Grade Teacher: Cisco Andrade MD [address] [address] Second Grade Teacher: Dori Ruiz AbNon-ReactiveDayton Osteopathic HospitalComment on above:Result Comment: The hepatitis C procedure used in [...] is recommended by ordering HCV RNA by PCR.Performed By: #### ACMVDN #### [address] [id number] Second Grade Teacher: Kevin Sanches MD [facility] [address] [place], [place] 51242108 Second Grade Teacher: Satinder Richardson MD #### AATRPH, AASMF #### [facility] [address] [place] [address] Second Grade Teacher: Satinder Richardson MD #### TRFE, ANASCN, FERI, PHEP, CER, LIVP, AMAB #### [address] 2473708 Second Grade Teacher: Cisco Andrade MD #### PT #### [address] [address] Second Grade Teacher: Kevin Sanches MD #### AEBVQ #### [address] [phone] Second Grade Teacher: Cisco Andrade MD [facility] [address] [place], [place] [phone] Second Grade Teacher: Satinder Richardson MDHepatitis Panel, Acuteon 73-94-4334LYV IgM IA Qn (S)Non-ReactiveNONREACTIVECritical access hospital B Core Ab, IgMNon-Reactive NONREACTIVELewisGale Hospital Alleghanytis B Surface AgNon-ReactiveNONREACTIVE [facility] C AbNon-ReactiveNONREACTIVESENTARA NORTHERN VIRGINIA MEDICAL CENTERComment on above: The hepatitis C procedure used [...] recommended by ordering HCV RNA by PCR. [facility] 27-39-3381IQF Coag (PPP) [Relative time]1.1 {INR} NormalMercy Eden Medical CenterComment on above:Result Comment: Therapeutic Range: Moderate Anticoagulant Intensity: INR = 2.0-3.0 High Anticoagulant Intensity: INR = 2.5-3.5Performed By: #### ACMVDN #### [place] [address] Second Grade Teacher: Kevin Sanches MD [address] [phone] Second Grade Teacher: Satinder Richardson MD #### NELA MARIN #### [facility] [address] [place] [address] [phone] Second Grade Teacher: Satinder Richardson MD #### ROSALBA RAGLAND FERI, PHEP, CER, LIVP, AMAB #### [address] [phone] Second Grade Teacher: Cisco Andrade MD #### PT #### [place] [address] Second Grade Teacher: Kevin Sanches MD #### AEBVQ #### [address] [phone] Second Grade Teacher: Cisco Andrade MD [address] [phone] Second Grade Teacher: RAQUEL Ruiz Coag (PPP) [Time]10.9 sNormal9.4-12.6[facility] Medical CenterComment on above:Performed By: #### ACMVDN #### [place] [address] Second Grade Teacher: Kevin Sanches MD [address] [phone] Second Grade Teacher: Satinder Richardson MD #### NELA MARIN #### [facility] [address] [place] [address] [phone] Second Grade Teacher: Satinder Richardson MD #### TRFE, ANASCN, FERI, PHEP, CER, LIVP, AMAB #### [facility] [address] [place], [place] 9591308 Second Grade Teacher: Cisco Andrade MD #### PT #### [facility] [address] [place], [place] 8110551 Second Grade Teacher: Kevin Sanches MD #### AEBVQ #### [facility] [address] [place], [place] 7437308 Second Grade Teacher: Cisco Andrade MD [address] [phone] Second Grade Teacher: MALENA Ruizrotime-INRon 43-26-2135ASO Coag (Bld) [Relative time]1.1 {INR}BON [facility] on above: Therapeutic Range: Moderate Anticoagulant Intensity: INR = 2.0-3.0 High Anticoagulant Intensity: INR = 2.5-3.5 PT Coag (PPP) [Time]10.9 sBON [facility] HOSPITALBON [facility] HOSPITALCT KNEE RT WO CONon 20-66-6079CG KNEE RT WO CONEXAMINATION: CT KNEE RT WO CON HISTORY: Pain [...] for further evaluation Electronically authenticated by: JORDAN Saha: 2021-07-15 15:21NormMercy Health [facility] HospitalCoding Summary.on 23-07-4885Sqgalq Summary.CODING DATE: 06/20/2017 FINAL [facility] STATUS: Home (Routine DC) PAYOR: Medicaid EAPG DESCRIPTION 0163 LEVEL I BLADDER AND KIDNEY PROCEDURES 0439 CLASS V PHARMACOTHERAPY ADMIT DX: REASON FOR VISIT DX: N32.81 Overactive bladder FINAL DX: PRINCIPAL: N32.81 Overactive bladderSECONDARY: N39.41 Urge incontinence E11.9 Type 2 diabetes mellitus without complications I10 Essential (primary) hypertension E78.5 Hyperlipidemia, unspecified J45.909 Unspecified asthma, uncomplicated Z85.41 Personal history of malignant neoplasm of cervix uteri Z79.84 half-way (current) use of oral hypoglycemic drugs PYMT PROC EAPG STAT DESCRIPTION DOCTOR NAME DATE NOTE: The code number assigned matches the documented diagnosis and / or procedure in the patient's chart. However, the narrative phrase printed from the coding software may appear abbreviated, or result in slightly different terminology. Coded By: Rosa Mcginnis Date Saved: 06/20/2017 04:16 pmNMemorial Health System Selby [facility] HospitalMain OR Intraoperative Recordon [id number] OR Intraoperative RecordIntraOp Document Type FTURO Summary Primary Physician: Riccardo Melgar Jr., MD Finalized Date/Time: 06/16/17 15:09:35 Pt. Name: MADHAVI KAY/Sex: 1965 FemaleMed Rec #: [id number] Physician: Riccardo Melgar Jr., MD Financial #: [id number] Pt. Type: O Room/Bed: / Admit/Disch: 06/16/17 13:18:47 - Institution: Case Times FTURO Entry 1 Patient Times In Room 06/16/1813:55:00 Out Room 06/16/17 15:12:00 Procedure Times Start 06/16/17 15:03:00 Stop 06/16/17 15:09:00 Anesthesia Times Last Modified By: Sana POZO RN, Kelly 06/16/17 15:09:24 Case Attendance FTURO Entry 1 Entry 2 Entry 3 Case Attendee Sana POZO, RN, Lida RAMOS, Shannon Melgar Jr., MD, Guadalupe Sal Role Performed Ice Cream Chef - Primary Scrub - Primary Surgeon - Primary Time In 06/16/17 14:55:00 06/16/17 14:55:00 06/16/17 14:55:00 Time Out 06/16/17 15:12:00 06/16/17 15:12:00 06/16/17 15:12:00 Procedure CYSTOSCOPY LOCAL BOTOX CYSTOSCOPY LOCAL BOTOX CYSTOSCOPY LOCAL BOTOX INJECTION(.) INJECTION(.) INJECTION(.) Comments Last Modified By: Sana POZO, RN, Sana POZO, RN, Serafin POZO, RN, Jonelle 06/16/17 15:09:27 Jonelle 06/16/17 15:09:27 Jonelle 06/16/17 15:09:27 Surgical Procedures FTURO Entry 1 Procedure Description Procedure CYSTOSCOPY LOCAL BOTOX Modifiers . INJECTION Surgeon Description CYSTOSCOPY WITH BOTOX 100 UNITS lot number [id number] Primary Procedure Yes Primary Surgeon Ramón Buhcanan MD, Riccardo Macias Start 06/16/17 15:03:00 Stop 06/16/17 15:09:00 Anesthesia Type Local Surgical Service Urology Wound Class 2 - Clean-Contaminated Last Modified By: Sana POZO RN, Jonelle 06/16/17 15:09:30 General Case Data FTURO Pre- Care Text: Classifies surgical wound, implements aseptic technique, initiates traffic control Entry 1 Case Information OR URO 1 FT Case Level None Wound Class 2 - Clean-Contaminated Specialty Urology Preop Diagnosis URG IN CONTINENCE AND Postop SameAs Preop Yes OVER ACTIVE BLADDER Postop Diagnosis URG IN CONTINENCE AND Outcomes Met? Yes OVER ACTIVE BLADDER Last Modified By: Sana POZO, TITA, Jonelle 06/16/17 14:01:27 Post-Care Text: The patient [...] Consents / H and P HandP, Surgery/Procedure Op erative Site N/A Verified Consent Marking Verified Surgical Site Yes Laterality Verified n/a Verified Procedure Verified Yes Correct Patient Yes Position Verified Availability Equipment, Implant, Time Out Sana POZO RN, Verified (If Medication Participants Lida Sal [facility], Ana Applicable) Ramón Cedeno Jr., MD, Donald L Time Out Complete 06/16/17 15:00:00 Allergies Reviewed? Yes Allergies Reviewed Self/Patient With Body Position Low Lithotomy Prep Area perinium Prep Agents Betadine Solution Skin. Condition Intact, [place], Warm, and Dry Additional None Specimens Collected [...] Signed By: Sana POZO RN, Kelly 06/16/17 15:09[facility] Recordon [id number] OR Preoperative RecordHolding Area Document Type FTURO Summary Primary Physician: Riccardo Melgar Jr., MD Finalized Date/Time: 06/16/17 14:00:57 Pt. Name: MADHAVI KAY/Sex: 1965 male Med Rec #: [id number] Physician: Riccardo Melgar Jr., MD Financial #: [id number] Pt. Type: O Room/Bed: / Admit/Disch: 06/16/17 13:18:47 - Institution: Case Times Holding FTURO Pre-Care Text: Verifies consent for planned procedure, identifies individual values and wishes concerning care, includes family members in perioperative teaching Secures patient's records' belongings, and valuables, maintainspatient's dignity and privacy, and maintains patient confidentiality [...] Identification: Check, Patient Verification: Surgical Consent, With ParticipationPatient NPO after Midnight: n/a Complaints of Pain: Yes Pain Comment: 07/07 stomach Skin Integrity Intact, [place], Warm, & Dry Vitals - EU Blood Pressure 141/97 Pulse 82 bpm Respirations 18 br/min SPO2 RN Reviewed Yes Last Modified By: Sana POZO RN, Kelly 06/16/17 14:00:49 Finalized By: Sana POZO RN, Kelly Document Signatures Signed By: Yvonne Coy LPN 06/16/17 13:50 Sana POZO RN, Jonelle 06/16/17 14:00[facility] HospitalOperative Reporton [id number] ReportPatient: MADHAVI KAY Age: 51 years Sex: Female : 1965 Associated Diagnoses: None Author: Ramón Buchanan MD, Riccardo Macias Procedure Operative Information Details: Date/Time: 06/16/17 15:11:00. 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 Post-Op Dx: Same. Anesthesia Type: Local. Procedure: Local Cystoscopy with botox injection. Complications: None. Risks/Benefits/Informed Consent: Surgical risks, benefits, details of the [...] urine. Devices Implanted: None. Removal: Cystoscope is re moved, The patient tolerated it well. Postoperative Information Discharge: Patient is discharged home with antibiotic coverage, Follow up arranged.Normal [facility] HospitalComment on above:Result Comment: Electronically Signed By: Ramón Buchanan MD, Riccardo Zhou.blaire\Date and Time Signed: 06/16/1814:12 EDT Coding Summary.on 99-47-2524Pdlavl Summary.CODING DATE: 01/19/2017 FINAL [facility] STATUS: Home (Routine DC) PAYOR: Medicaid EAPG DESCRIPTION 0161 URINARY STUDIES AND PROCEDURES 0425 LEVEL I OTHER MISCELLANEOUS ANCILLARY PROCEDURES 0288 DIAGNOSTIC ULTRASOUND EXCEPT OBSTETRICAL AND VASCULAR OF LOWER EXTREMITIES ADMITDX: REASON FOR VISIT DX: N35.9 Urethral stricture, unspecified FINAL DX: PRINCIPAL: N35.9 Urethral stricture, unspecified SECONDARY: R35.1 Nocturia R30.0 Dysuria N39.41 Urge incontinence E11.9 Type 2 diabetes mellitus without complications Z79.82 half-way (current) use of aspirin I10 Essential (primary) hypertension E78.5 Hyperlipidemia, unspecified G40.909 Epilepsy, unspecified, not intractable, without status epilepticus Z85.41 Personal history of malignant neoplasm of cervix uteri Z79.84 terminologist (current) use of oral hypoglycemic drugs PYMT PROC EAPG STAT DESCRIPTION DOCTOR NAME DATE NOTE: The code number assigned matches the documented diagnosis and / or procedure in the patient's chart. However, the narrative phrase printed from the coding software may appear abbreviated, or result in slightly different terminology. Coded By: Caroline Ross Date Saved: 01/19/2017 11:28 amNormal [facility] Vital Signs Date TimeVital SignValuePerforming AnpkcvjpwDlfnfqxa64-77-5331 10:170500Body igrrch979.1 cmJegerber Cuba NAILHEAD PUNCHER[employer] Work Phone: [facility]11-07-2025 10:17-0500Body mass index (BMI) [Ratio]28.46 kg/n3ZvnqrviYodit Cuba APRN-COOK [employer]ILI Work Phone: [facility]11-07-2025 10:17-0500Body oysqkm49.56 kgYodit Cuba APRN-[employer] Work Phone: [facility]11-07-2025 10:17-0500Diastolic blood yumekrxf14 mm[Hg]Yodit Cuba APRN-[employer] Work Phone: [facility]11-07-2025 10:17-0500Heart rate 57 /minYodit Cuba APRN-[employer] Work Phone: [facility]11-07-2025 10:17-0500Systolic blood zvrpkmee400 mm[Hg]Yodit Cuba APRN-[employer] Work Phone: [facility]09-30-2025 12:40-0400Body rxeick792.[address]09-30-2025 12:40-0400Body mass index (BMI) [Ratio]26.96 kg/m2Pmh [address] [place], [place] 8479009-30-2025 12:40-0400Body .[address] [place], [place] 8479009-02-2025 13:05-0400Body dgupyt189.[address]09-02-2025 13:05-0400Body mass index (BMI) [Ratio] 27.46 kg/m2Pmh [address] [place], [place] 8479009-02-2025 13:05-0400Body alotgy87.84 kg Pmh [address] [place], [place] 8479008-20-2025 14:20-0400Body jsnipu424.1 cmYodit Cuba APRN-COOK CHILI Work Phone: [facility]08-20-2025 14:20-0400Body mass index (BMI) [Ratio]27.52 kg/h7SqsyugjYodit Cuba APRN-[employer]I Work Phone: [facility]08-20-2025 14:20-0400Body ptvaft72.03 kgYodit Cuba NAILHEAD PUNCHER[employer] Work Phone: [facility] [employer] Vdyswn21-81-7413 14:20-0400Diastolic blood sgmvkann99 mm[Hg]Yodit Cuba NAILHEAD P[employer]CH[employer] Work Phone: [facility] [employer] Lydldc12-46-7207 14:20-0400Heart rate 67 /minYodit Cuba NAILHEAD P[employer] Work Phone: [facility] [employer] Pibgpt77-90-1695 14:20-0400Systolic blood srdtajoa484 mm[Hg]Yodit Cuba NAILHEAD PUNCHER[employer] Work Phone: [facility] [employer] Lznujo99-68-4318 08:25-0400Body qybzav469.1 cmChasity Tyron NAILHEAD PUNCHER[employer] Work Phone: [facility] [employer] Pzthun64-27-0526 08:25-0400Body mass index (BMI) [Ratio]27.76 kg/n8Cwythsk Tyron HOLLEYN-COOK CHILI Work Phone: [facility] [employer] Sbyaqy27-67-7276 08:25-0400Body mgrvlnbraxp51.39 [degF]Ashley Tyron NAILHEAD PUNCHER[employer] Work Phone: [facility] [employer] Izievl01-85-5402 08:25-0400Body .66 kgChasity Tyron HOLLEYN-[employer]ILI Work Phone: [facility] [employer] Hfnzrv19-36-4039 08:25-0400Diastolic blood xlarwoay03 mm[Hg]Ashley Tyron NAILHEAD P[employer]CH[employer] Work Phone: [facility] [employer] Wiurcj62-08-8272 08:25-0400Heart rate 64 /minChasity Tyron NAILHEAD P[employer]CH[employer] Work Phone: [facility] [employer] Yigpnu63-73-9738 08:25-0400 Respiratory rate15 /minChasity Tyron NAILHEAD P[employer]CH[employer] Work Phone: [facility] [employer] Vqfbjt03-38-1933 08:25-8301DvT4% (BldA) [Mass fraction]100 %Ashley Tyron NAILHEAD P[employer]CH[employer] Work Phone: [facility]08-04-2025 08:25-0400Systolic blood rzmjlisu055 mm[Hg]Ashley Tyron NAILHEAD P[employer]CH[employer] Work Phone: [facility]04-21-2025 10:03-0400Body cwvxex764.1 cmMobuster Hayes MD Work Phone: [facility]04-21-2025 10:03-0400Body mass index (BMI) [Ratio]27.56 kg/b9SuxibkiGaviota Hayes MD Work Phone: [facility]04-21-2025 10:03-0400Body bolekb47.12 kgMobuster Hayes MD Work Phone: [facility]04-21-2025 10:03-0400Diastolic blood rbmikhzn68 mm[Hg]Gaviota Hayes MD Work Phone: 1(959)367-[address] [place], [place] 3704704-21-2025 10:03-0400Heart rate 73 /minMobuster Hayes MD Work Phone: [facility]04-21-2025 10:03-9914SuV8% (BldA) [Mass fraction]99 %Gaviota Hayes MD Work Phone: 1(516)694-[address] [place], [place] 3704704-21-2025 10:03-0400Systolic blood ltqdpsab461 mm[Hg]Gaviota Hayes MD Work Phone: 1(539)266-[address] [place], [place] 3704703-13-2025 14:27-0400Diastolic blood dokcvqws39 mm[Hg]Lucia Olmos NAILHEAD PUNCHER Work Phone: [facility]03-13-2025 14:27-0400 Heart rate60 /minLucia Olmos NAILHEAD PUNCHER Work Phone: [facility]03-13-2025 14:27-0400 Respiratory rate16 /minLucia Olmos NAILHEAD PUNCHER Work Phone: [facility]03-13-2025 14:27-0400 SaO2% (BldA) [Mass fraction]98 %Lucia Olmos NAILHEAD PUNCHER Work Phone: [facility]03-13-2025 14:27-0400 Systolic blood lmeucybo508 mm[Hg]Lucia Olmos NAILHEAD PUNCHER Work Phone: [phone]-[facility]03-13-2025 11:44-0400 Body eyenuf877.1 cmLucia Olmos NAILHEAD PUNCHER Work Phone: [phone]03-13-2025 11:44-0400 Body .29 kgLucia Olmos NAILHEAD PUNCHER Work Phone: [phone]02-24-2025 10:24-0500 Body kltrax254.1 cmSam[facility]02-24-2025 10:24-0500Body mass index (BMI) [Ratio]27.6 kg/e7NpfoerrrjSamaritan North Health Center02-24-2025 10:24-0500Body kxnrao28.29 kgSamaritan North Health Center01-28-2025 09:14-0500Body .1 cmAlonzo Torrez MD Work Phone: [facility]01-28-2025 09:14-0500Body mass index (BMI) [Ratio]28.12 kg/u8GipbczlqhapAlonzo Torrez MD Work Phone: [facility]01-28-2025 09:14-0500Body qdylbm56.66 kgAlonzo Torrez MD Work Phone: [facility]10-18-2024 12:58-0400Body cqezio540.1 Anil Valenzuela MD Work Phone: [facility]10-18-2024 12:58-0400Body mass index (BMI) [Ratio]27.46 kg/k6RifskzfSom Valenzuela MD Work Phone: [facility] [employer] Cikthz30-33-7935 12:58-0400Body fhexmc28.84 kgSom Valenzuela MD Work Phone: [facility] [employer] Zzwguf12-09-9108 12:58-0400Diastolic blood hnbhnpuy65 mm[Hg]Som Valenzuela MD Work Phone: [facility] [employer] Bixjvk80-16-5065 12:58-0400Heart rate 62 /minSom Valenzuela MD Work Phone: [facility] [employer] Hlbrsd50-34-2712 12:58-9483QtD0% (BldA) [Mass fraction]98 %Som Valenzuela MD Work Phone: [facility] [employer] Ckkcxu25-30-3853 12:58-0400Systolic blood ozvbmmvh186 mm[Hg]Som Valenzuela MD Work Phone: [facility] [employer] Bnsuol49-40-7877 08:48-0400Body .1 Clyde Galloway MD Work Phone: [facility] [employer] Ruoyhc07-91-6290 08:48-0400Body mass index (BMI) [Ratio]27.96 kg/m1LueltDivya Galloway MD Work Phone: [facility]07-26-2024 08:48-0400Body .01 [degF]Divya Galloway MD Work Phone: [facility]07-26-2024 08:48-0400Body jxbeoa05.2 kgDivya Galloway MD Work Phone: [facility]07-26-2024 08:48-0400Diastolic blood mm[Hg]Divya Galloway MD Work Phone: [facility]07-26-2024 08:48-0400Heart rate 82 /Phi Galloway MD Work Phone: [facility]07-26-2024 08:48-0400 Respiratory rate18 /Phi Galloway MD Work Phone: [facility] Vtmrjz25-76-9391 08:48-0286ZyL3% (BldA) [Mass fraction]99 %Divya Galloway MD Work Phone: [facility] Rjkvpy40-86-9075 08:48-0400Systolic blood zpxyfoul327 mm[Hg]Divya Galloway MD Work Phone: [facility] [employer] Vyuosg45-33-3145 09:12-0500Body tjomdv012.1 Clyde Galloway MD Work Phone: [address] [place], [place] [address] Itvcvq70-02-2810 09:12-0500Body mass index (BMI) [Ratio]29.79 kg/l4JucizDivya Galloway MD Work Phone: [phone] Bdgkyu11-34-1597 09:12-0500Body .81 [degF]Divya Galloway MD Work Phone: [facility] [employer] Xevjpm51-46-7137 09:12-0500Body lytouy16.19 kgDivya Galloway MD Work Phone: [facility] Khecqt74-90-3888 09:12-0500Diastolic blood gzjpzewj00 mm[Hg]Divya Galloway MD Work Phone: [facility] Gywvwp78-65-0681 09:12-0500Heart rate 57 /minDivya Galloway MD Work Phone: [facility] Gyfkkd26-82-5469 09:12-0500 Respiratory rate18 /minDivya Galloway MD Work Phone: [facility] Maximi09-89-7778 09:12-3842MpN0% (BldA) [Mass fraction]99 %Divya Galloway MD Work Phone: [facility] Cleomg88-74-7270 09:12-0500Systolic blood escvzmha796 mm[Hg]Divya Galloway MD Work Phone: [phone] [employer] [facility] Encounters Encounter DateEncounter TypeCare ProviderFacilityStart: 01-07-2025 End: 14-95-6552unjoywbouyQHAYNA AQTwin City Hospitaltart: 01-04-2025 End: 53-52-6721Qlrvyg outpatient visit 15 minutesCaminacj Cuba NAILHEAD PUNCHER[employer] Work Phone: [facility] Physicians General SurgeryComment on above: Bilateral lower abdominal pain (Primary Dx); RLQ abdominal painStart: 01-04-2025 End: 68-64-5920mcincndpyxTGRUUPS A CARROLLSamaritan North [facility] Center [facility] Start: 12-18-2024 End: 99-63-2257owsmjiuxryJksuwha D Katko-LAB Path Spec [facility] HospStart: 12-18-2024 End: 16-36-8185Vkrrkaqu ReferredAlberto Li DO-LAB [facility] Start: 18-67-6587jlbljalyjgUppcq AroraFacility:[facility] Start: 12-11-2024 End: 74-81-9170Kfitkr-up encounterJerardo Romo DO Work Phone: [facility] - SurgeryComment on above:Surgical PathologyStart: 12-09-2024 End: 61-06-5239MkiwixGsobbxv E Grillis DO Work Phone: [facility] Physicians General SurgeryStart: 12-06-2024 End: 47-12-2877Trsdgqwca encounterMarlee Voss CMAProMedica Physicians CardiologyStart: 12-05-2024 End: 73-67-3539Xdyzeufca department patient visitCOMMUNMERCY HEALTH ST[facility] Hospitaltart: 12-03-2024 End: 55-33-3797Pifikewzks and management of inpatientMICHAEL Tameka GRILLISPSt. Mary's Medical Centertart: 11-27-2024 End: 97-56-6942ssdycadrxuWuy Pat Phone Call Provider [address] [place] [address] - Pre AdmitStart: 11-27-2024 End: 96-69-1412Mhkvsvefz encounterTish De La Fuente [facility]ITALPro[facility] Comment on above:Re-establish CareStart: 11-27-2024 End: 44-07-9273bptmoqwlctIFKMGWWOU HEALTH SERVICESSalem Regional [facility] Start: 11-09-2024 End: 89-18-8564Csujsd-up encounterJerardo Romo DO Work Phone: [facility] - SurgeryComment on above:Surgical Pathology, Bedside Glucose *Place/Obtain serum glucose if >500 per glucometer.Start: 11-05-2024 End: 99-19-0550Ndvhuc-up encounterShelley Martel [facility] Physicians General SurgeryComment on above:CT abdomen and pelvis with contrastStart: 11-05-2024 End: 99-78-7449Zuioozbnxw and management of inpatientJERARDO MontielMission Bernal campustart: 10-30-2024 End: 85-48-5880omrshkxnuwJhp Pat Phone Call Provider [address] [place] [address] - Pre AdmitStart: 10-17-2024 End: 56-42-5500Uhjbfi outpatient new 30 minutesYodit Cuba [employer] P[employer] Work Phone: [facility] General SurgeryComment on above: Vomiting, unspecified vomiting type, unspecified whether nausea present (Primary Dx); Periumbilical abdominal pain; Diarrhea, unspecified type; Black stools; RLQ abdominal painStart: 10-17-2024 End: 04-48-3118ymyiobefbxJORTRPC Lilly [facility] Amb[facility] P[facility] Start: 10-15-2024 End: 21-84-1888Okcnaelvy encounterYodit Cuba [employer] Work Phone: [facility] General SurgeryStart: 10-01-2024 End: 01-41-2725Jolfwm outpatient visit 25 minutesAshley Francisco [employer] Work Phone: Mckenzie Macias [facility] - Medical OncologyComment on above:Endometrial cancer determined by uterine biopsy (CMS-HCC) (Primary Dx); Thrombocytopenia; Other cirrhosis of liver (CMS-HCC); Endometrial carcinoma (CMS-HCC); HepatosplenomegalyStart: 10-01-2024 End: 70-55-6217vvvolhmndtWAIDAWP A KENDALLProMedica Long Lake HospitalStart: 13-93-9310ilpebykrmxGOZOJ N XIAProMedica Long Lake HospitalStart: 09-24-2024 End: 83-43-0338Sqhdwt Darontameka Leonard TITADorotlauren Macias [facility] - Medical OncologyComment on above:Thrombocytopenia (Primary Dx)Start: 07-02-2024 ambulatoryIMAD ASAADProMedica Long Lake HospitalStart: 06-18-2024 End: 06-77-6925Fagclf outpatient visit 25 minutesMohamed Loki Hayes MD Work Phone: [facility] Physicians CardiologyComment on above: Essential hypertension, benign (Primary Dx); FOREIGN on CPAPStart: 06-18-2024 End: 29-29-3785yazvqonsubSJYVSPY B ELAMINProParkview Health [facility] Hospital HospitalStart: 06-15-2024 End: 28-75-7162Rymswkomd encounterMarlee Voss CMAProMedica Physicians CardiologyStart: 06-13-2024 End: 73-17-5474Pkivuvajv encounterSdima RaiProMedica Physicians Cardiology Start: 06-08-2024 End: 33-35-8556Oasxhobmq department patient visitCOMMUNITY HEALTH SERVICES [facility] HospitalStart: 60-17-0946Ktc-patient / Non-visitLucia Olmos NAILHEAD PUNCHER Work Phone: [facility] Gastro Work Phone: Start: 05-10-2024 End: 01-01-3226Miehtolxz to same day surgery centerLucia Olmos NAILHEAD PUNCHER Work Phone: [facility] Work Phone: Start: 05-10-2024 End: 76-03-8636zohiuluwkeLmmaggevt K Myerholtz NAILHEAD PUNCHER Work Phone: [facility] Work Phone: Start: 04-23-2024 End: 69-67-8544utlkxuqvicGwhopmgwuTrinity Health System [facility] Work Phone: Start: 04-23-2024 End: 61-23-3836Horefsc encounter procedureSelect Specialty [facility] Physician [facility] Gastro Work Phone: Start: 03-27-2024 End: 35-38-2862Dikmuz outpatient visit 15 minutesAlonzo Torrez MD Work Phone: [facility] Physicians General SurgeryComment on above: Periumbilical abdominal pain (Primary Dx)Start: 03-27-2024 End: 84-89-7344mthyqftqvaYEIGXRQXLWWCarraway [facility] Center Ambulatory [facility] Start: 50-43-6187Euk-patient / Non-visitSelect [facility]ty [facility] Gastro Work Phone: Start: 03-08-2024 End: 26-51-4420coybfusyjtRGNPKSt. Anthony's Healthcare Center HospitalStart: 02-14-2024 End: 44-88-7608bjnhbpimevLFMIOPORhode Island Hospital HospitalStart: 02-07-2024 End: 05-82-0859Hpeybf Lalo Gaffney [facility] Physicians Cardiology Comment on above:Abnormal stress test (Primary Dx); Chest pain, unspecified typeStart: 12-16-2023 End: 42-28-5081Dcqhvzhhz encounterCargio GERBERSurgical Specialty Centercj Physicians Cardiology Comment on above:CTA corsStart: 12-16-2023 End: 89-65-6329Mqjvhz outpatient visit 25 minutesVincenzo Luna MD Work Phone: [facility] Phys[facility] CardiologyComment on above:Chest pain, unspecified type (Primary Dx); Abnormal stress test; Essential hypertension, benign; Shortness of breathStart: 12-15-2023 End: 31-12-9453Wjuwftmxr encounterMarlee Voss CMABrattleboro Memorial HospitalMedica Physicians CardiologyStart: 10-05-2023 End: 58-59-8824Xseimtqft encounterMarlee Voss CMABrattleboro Memorial HospitalMedica Physicians CardiologyStart: 09-23-2023 End: 39-89-0869Ilarbb [facility] - Medical OncologyComment on above:Endometrial cancer determined by uterine biopsy ([facility]- HCC) (Primary Dx); Other cirrhosis of liver ([facility]-HCC); Thrombocytopenia ([facility]-HCC); Endometrial carcinoma ([facility]-HCC); HepatosplenomegalyStart: 09-23-2023 End: 40-85-1082Ydzpdi outpatient visit 25 minutesDivya Galloway MD Work Phone: Mckenize Macias [facility] - Medical OncologyComment on above:Endometrial cancer determined by uterine biopsy ([facility]-HCC) (Primary Dx); Thrombocytopenia ([facility]-HCC)Start: 09-12-2023 End: 30-27-3535Bumfchgmz encounterSjo GERBERCentral [facility] Surgical Hospital Physicians Cardiology Start: 08-18-2023 End: 45-75-7869Cptspzade encounterMadhavi GERBERSurgical Specialty Centerica Physicians CardiologyStart: 08-01-2023 End: 28-13-1864Iwerftcbs encounterTish De La Fuente [facility] HospitalMedimo Physicians Family MedicineComment on above:Multiple NeedsStart: 07-05-2023 End: 88-55-1329beeeisgmggYYRVGR GILLMORNot AvailableStart: 06-20-2023 End: 77-90-7370ipuegcyydpVSOSOCZE [facility] Daytontart: 54-41-4593Khywdmqnv encounterMarlee Voss [facility] HospitalMedica Physicians Cardiology Start: 41-72-0163Zsiybx Mahsa Macias [facility] - Medical OncologyComment on above:Endometrial cancer determined by uterine biopsy ([facility]-HCC) (Primary Dx); Other cirrhosis of liver ([facility]-HCC); Thrombocytopenia ([facility]-HCC)Start: 03-25-2023 End: 85-61-7693Wpnfmw outpatient visit 25 minutesDivya Galloway MD Work Phone: Mckenzie Macias [facility] Medical OncologyComment on above:Thrombocytopenia ([facility]-HCC) (Primary Dx); Endometrial cancer determined by uterine biopsy ([facility]-HCC); Other cirrhosis of liver ([facility]-HCC)Start: 96-80-9275Ogvmgzrbu encounterSdima LynnMountain States Health AllianceMedica Physicians CardiologyStart: 02-15-2022 End: 25-04-7124fjqjcjojocRRHUSG [facility] Hospitaltart: 10-30-2021 End: 89-22-0199dlnjjytqsqDWHWL CHEEMAFacility:L3Xuwcl: 10-15-2021 End: 35-04-1815wfxdrtjreqIMCAU CHEEMAFacility:L3Aroec: 09-07-2021 End: 74-01-6015gswnbobgbkFRJDZEH ANN BLAYLOCKC[facility] Clinic Foundation Start: 09-07-2021 End: 55-72-2195vwfvczujefYGVFTVC ANN YAVAPAI [facility] CENTERKAINCleveland Clinic [facility] Start: 09-07-2021 End: 92-00-5064Cjnaskzebj hospital visit by Raymundo Rebollar Work Phone: STKRISTIN Guzman Lab DrawComment on above:Hepatomegaly; Splenomegaly; Thrombocytopenia (HCC)Start: 07-15-2021 End: 86-36-6272mvyzqhxaqgMP JACK HAYFacility:E7Qlrfv: 03-04-2021 End: 82-94-4541knblielovgBY DOCTOR MISCFacility:X0Bgoob: 06-16-2017 End: 97-95-1327LlexciraddXuqkgd W RiceFacility:FTMCStart: 01-13-2017 End: 53-19-4427CwjjnknyogLjmikp W RiceFacility:[facility] Procedures DateProcedureProcedure DetailPerforming ClinicianStart: 93-53-9016Oegtow-up visitFollow-upJESSICA A CARROLLStart: 46-05-6611Ddhegy-up visitFollow-upMOHAMED B ELAMINStart: 25-04-6765JboygzkotpfkycvhlocxrvrtanBtjknpcfa Myerholtz NAILHEAD PUNCHER Work Phone: Start: 72-61-7620Auemrtmpthbr [Mass/volume] in Urine by Test Jameson Torrez MD Work Phone: Start: 88-60-8049Cbecl depression screening assessment Francine RaiStart: 97-29-4703Tykfm hepatitis panelEmery Horowitz APRN - DRUPAL PHP DEVELOPER Work Phone: Start: 37-75-8466Mazenstgmeuzain Moffett Deya Lor NAILHEAD PUNCHER - [employer] DEVELOPER Work Phone: H/O: tubal ligationHx of tubal ligationHistory of cholecystectomyHx of cholecystectomy Plan of Treatment DateCare ActivityDetailAuthorStart: 99-95-8880Xgyna BMI ScreeningAdult BMI ScreeningProMedica Health SystemStart: 28-04-6372Evtbrvc ScreeningTobacco ScreeningProMedica Health SystemStart: 58-16-6803Kisvn BMI ScreeningAdult BMI ScreeningProMedica Health SystemStart: 49-23-7239Ebtjlpi ScreeningTobacco ScreeningProMedica Health SystemStart: 53-24-7510Ohkhx BMI ScreeningAdult BMI ScreeningProMedica Health SystemStart: 22-37-6871Vsnadiq ScreeningTobacco ScreeningProMedica Health SystemStart: 91-96-4433Xccwcda ScreeningTobacco ScreeningProMedica Health SystemStart: 99-24-7196Ttbxu BMI ScreeningAdult BMI ScreeningProMedica Health SystemStart: 75-26-0571Pzbxpiv ScreeningTobacco ScreeningProMedica Health SystemStart: 36-15-5686Rkvaflb ScreeningTobacco ScreeningProMedica Health SystemStart: 78-94-0714Bajqi BMI ScreeningAdult BMI ScreeningProMedica Health SystemStart: 46-86-8789Uqfgq BMI ScreeningAdult BMI ScreeningProMedica Health SystemStart: 31-23-3118Myjvbzi ScreeningTobacco ScreeningProMedica Health SystemStart: 75-59-3833Hkzbe BMI ScreeningAdult BMI ScreeningProMedica Health SystemStart: 33-27-0839Ievfhdo ScreeningTobacco ScreeningProMedica Health SystemStart: 10-58-4268Cvlhc BMI ScreeningAdult BMI ScreeningProMedica Health SystemStart: 31-40-1889Keqkktg ScreeningTobacco ScreeningProMedica Health SystemStart: 95-40-5065Xufir BMI ScreeningAdult BMI ScreeningProMedica Health SystemStart: 40-92-5363Igkiqzc ScreeningTobacco ScreeningWakeMed Cary Hospitaltart: 01-22-2025 End: 87-57-6480Hcvetnp encounter uuwnnoddi44/25/2025 9:00 AM EST Office Visit [facility] [address] [address] Gerardo Stevens MD [address] [place], [place] [phone] Charly Poe, [address] [place] [address] [facility] CardiologyStart: 01-17-2025 End: 97-99-1446Ecyyxqlom to same day surgery zzjgxn3901/17/2025 8:00 AM EST - 01/17/2025 8:30 AM EST Surgery [facility] [address] [place] [address] Jerardo Romo, DO [address] [place] [address] [phone] COLONOSCOPY DIAGNOSTIC / SCREENING [37195 (CPT )][facility] HospitalComment on above:COLONOSCOPY DIAGNOSTIC / SCREENING [89463 (CPT )]Start: 01-17-2025 End: 03-15-4179Illlbohxkgs flx dx w/collj spec when pfrmdCOLONOSCOPY DIAGNOSTIC / SCREENING lower abdominal pain 01/17/2025 8:00 AM ESTFREMONT SURGERYStart: 75-02-5733Uxgjmcmkru hospital visit by hbusecjnb81/20/2025 8:00 AM EST Hospital Encounter [facility] [address] [place] [address] Jerardo Romo, DO [address] [place] [address] [phone] [facility] SurgeryStart: 01-10-2025 End: 32-65-9168opknetytio89/13/2025 4:10 PM EST Support Visit [facility] Admit [address] [place] [address] [facility] - Pre AdmitStart: 01-07-2025 End: 37-67-6077Fpzfbcp encounter bbjwkjxed96/10/2025 11:30 AM EST Appointment [facility] - Mammography/DEXA Imaging [address] [place] [address] SpsNgmrfgWhite Hospital - Mammography/DEXA ImagingStart: 69-58-6150Nnczolgk identified in Urine by Culture Urine CulturePremier Health Upper Valley Medical Centertart: 67-79-6087Qzzju culture [facility] Upper Valley Medical Centertart: 62-28-3855Afhhr BMI ScreeningAdult BMI ScreeningWakeMed Cary Hospitaltart: 02-83-7571Iyddrzi ScreeningTobacco ScreeningProUK Healthcaretart: 12-10-2024 End: 53-98-7629Szgqzntww to same day surgery pjftqb9612/10/2024 8:30 AM EDT - 12/10/2024 9:00 AM EDT Surgery [facility] Surgery [address] [place] [address] Jerardo Romo, DO [address] [place], [place] [phone] COLONOSCOPY DIAGNOSTIC / SCREENING [03218 (CPT )][facility] - SurgeryComment on above:COLONOSCOPY DIAGNOSTIC / SCREENING [91458 (CPT )]Start: 12-10-2024 End: 31-27-3045Kqvcppnkxfy flx dx w/collj spec when pfrmdCOLONOSCOPY DIAGNOSTIC / SCREENING black stools, diarrhea, periumbilical pain, incomplete prep on first attempt 12/10/2024 8:30 AM EDTFREMONT SURGERYStart: 58-87-1119Twzgiculdf hospital visit by reoxtdfna09/13/2025 8:30 AM EDT Hospital Encounter [facility] Surgery [address] [place] [address] Jerardo Romo DO [address] [place] [address] [facility] HospitalStart: 12-04-2024 End: 30-24-3063bfikklpyiz06/07/2025 3:40 PM EDT Support Visit [facility] Admit [address] [place] [address] [facility] AdmitStart: 12-03-2024 End: 99-18-0785Alqhimgub to same day surgery [facility] LimaComment on above:COLONOSCOPY DIAGNOSTIC / SCREENING [03778 (CPT )]Start: 12-03-2024 End: 01-17-4331Ykljmqskec consultationThe Christ HospitalStart: 12-03-2024 End: 90-85-4078Jzhnkzhkduh flx dx w/collj spec when pfrmdFREMONT SURGERYStart: 01-07-0989Btfohgukua hospital visit by physicianThe Christ HospitalStart: 81-77-4998Hxqcb BMI ScreeningAdult BMI Screening [facility] Hospitaltart: 99-28-2270Vcihona ScreeningTobacco Screening [facility] Hospitaltart: 11-05-2024 End: 78-29-7803Nvhifcapc to same day surgery nmrkin5411/05/2024 9:30 AM EDT - 11/05/2024 10:15 AM EDT Surgery [facility] [address] [place] [address] Jerardo Romo, [address] [place] [address] ESOPHAGOGASTRODUODENOSCOPY DIAGNOSTIC [50125 (CPT )]The Christ HospitalComment on above:ESOPHAGOGASTRODUODENOSCOPY DIAGNOSTIC [64533 (CPT )]Start: 62-64-5204Pmkypksndo hospital visit by lajvtjowq78/08/2025 9:30 AM EDT Hospital Encounter [facility] Surgery [address] [place] [address] Jerardo Romo DO [address] [place] [address] [facility] - SurgeryStart: 11-05-2024 End: 84-39-7944Mrlrfhdldzy flx dx w/collj spec when pfrmdFREMONT SURGERYStart: 11-05-2024 End: 99-66-5940Xwvwiwyizexccakjgtahclmvzz transoral diagnosticFREMONT SURGERY Start: 10-30-2024 End: 76-27-0026lrsqamkrqh43/02/2025 3:00 PM EDT Support Visit [facility] - Pre Admit [address] [place] [address] [facility] Pre AdmitStart: 10-30-2024 End: 84-85-6760Evfiloh encounter fakcaaobe91/02/2025 8:00 AM EDT Appointment [facility] - [place] Imaging [address] [place] [address] Yodit Cuba, [employer] [address] MAZARIEG[place] [address] [facility] - CT ImagingStart: 25-37-0066Vieinhxir vaccinationInfluenza VaccineFostoria City Hospitalca Health SystemStart: 10-17-2024 End: 91-29-1586Svathkd encounter iuhjzjvhf45/20/2025 2:30 PM EDT Office Visit [facility] General Surgery [address] [place], [place] Yodit Cuba [employer] [address] MAZARIEGOSKINDRED H[facility]PITALMaryH[place], [place] [address] [facility] Physicians General SurgeryStart: 10-17-2024 End: 37-52-3707SZ Abdomen and Pelvis W contrast IVCT abdomen and pelvis with contrast Imaging Routine RLQ abdominal pain Expected: 10/17/2024, Expires: 10/17/2025[facility] Work Phone: Comment on above:Expected: 10/17/2024, Expires: 10/17/2025Start: 10-01-2024 End: 56-97-9644Qenmxyy encounter stulczamy41/04/2025 8:30 AM EDT Office Visit Mckenzie Hankins [facility] - Medical Oncology [address] [place], [place] [address] Ashley Francisco APRN-JF [address] [place] [address], [address] [place] [address] Mckenzie L [place] [facility] - Medical OncologyStart: 67-31-5948Nodcr BMI ScreeningAdult BMI Screening [facility] SystemStart: 43-91-7615Wtyyshn ScreeningTobacco Screening [facility] SystemStart: 09-21-2024 End: 29-07-9997Jiweavs encounter ttodhjxvh76/25/2025 8:45 AM EDT Office Visit Mckenzie Hankins [facility] - Medical Oncology [address] [place] [address] Divya Galloway MD [address] [place] [address] [address] [place] [phone] Mckenzie L [place] [facility] Medical OncologyStart: 44-14-5315Rjfoq BMI ScreeningAdult BMI ScreeningProOhiohealth Hardin Memorial Hospitalca Health SystemStart: 49-92-2355Bhfeopa ScreeningTobacco ScreeningProOhiohealth Hardin Memorial Hospitalca Health SystemStart: 49-06-6234Mosqo BMI ScreeningAdult BMI ScreeningProOhiohealth Hardin Memorial Hospitalca Health SystemStart: 52-20-7635Vzniuxr ScreeningTobacco ScreeningProOhiohealth Hardin Memorial Hospitalca Health System Start: 06-18-2024 End: 27-98-8219Jlcbzva encounter bvthagwhk84/21/2025 10:00 AM EDT Office Visit [facility] [address] [place] [address] Gaviota Hayes MD [address] [place] [address] [facility] CardiologyStart: 15-35-7697VnsecnohhPremier Health Upper Valley Medical Centertart: 95-28-0255Erhcl BMI Screening Adult BMI ScreeningProHolzer Health System SystemStart: 32-37-9348Lmzel screening for proteinUrine MicroalbuminProOhiohealth Hardin Memorial Hospitalca Health SystemStart: 02-14-2024 End: 22-25-2646Ieaalsy encounter zboljpkxr75/17/2024 1:[address] [facility] - CT [address] [place] [address] [phone]. [facility] - CTStart: 12-22-2023 End: 84-56-6734Hxhtbqa encounter blgtxrild09/24/2024 11:00 AM EDT Appointment [facility] CT Imaging [address] [place] [address] Divya Galloway MD [address] [facility] [address] [place], [place] [address] [facility] - CT ImagingStart: 74-11-0505Ocqyw BMI ScreeningAdult BMI ScreeningProOhiohealth Hardin Memorial Hospitalca Health SystemStart: 76-93-8643Vwvvgqi ScreeningTobacco ScreeningProOhiohealth Hardin Memorial Hospitalca [facility] SystemStart: 12-16-2023 End: 39-67-5823ZKJ Heart and Coronary arteries WO and W contrast IVCT angiogram coronary arteries with or without scoring Imaging Routine Chest pain, unspecified typeAbnormal stress test Shortness of breath Expected: 12/16/2023, Expires: 12/15/2024[facility] Work Phone: Comment on above:Expected: 12/16/2023, Expires: 12/15/2024Start: 12-16-2023 End: 75-51-5076Xdtrykd encounter moscvtkfr94/18/2024 1:15 PM EDT Office Visit [facility] [address] [place] [address] Vincenzo Luna MD [address] [place] [address] Som Valenzuela MD [address] [place] [address] [facility] CardiologyStart: 39-64-6729Xcconovov vaccinationInfluenza VaccineWakeMed Cary Hospitaltart: 10-06-2023 End: 59-13-4794Wwrvuya encounter evzqingfy54/08/2024 11:30 AM EDT Office Visit [facility] [address] [place] [address] Vincenzo Luna MD [address] [place] [address] [facility] CardiologyStart: 09-23-2023 End: 68-83-8147MHQ W Auto Differential panel - BloodCBC auto differential Lab Routine Endometrial cancer determined by uterine biopsy (CMS-HCC) Other ci rrhosis of liver (CMS-HCC) Thrombocytopenia (CMS-HCC) Expected: 09/23/2023 (Approximate), Expires: 03/25/2024[facility] SystemComment on above: Expected: 09/23/2023 (Approximate), Expires: 03/25/2024Start: 09-23-2023 End: 43-02-1925Ugxnccyajbwqu metabolic 2000 panel - Serum or PlasmaComprehensive metabolic panel Lab Routine Endometrial cancer determined by uterine biopsy (CMS-HCC)Other cirrhosis of liver (CMS-HCC) Thrombocytopenia (CMS-HCC) Expected: 09/23/2023 (Approximate), Expires: 03/25/2024[facility] SystemComment on above:Expected: 09/23/2023 (Approximate), Expires: 03/25/2024Start: 09-23-2023 End: 35-09-1826ZI Abdomen and Pelvis W contrast IVCT abdomen and pelvis with contrast Imaging Routine Endometrial cancer determined by uterine biopsy(CMS- HCC) Other cirrhosis of liver (CMS-HCC) Thrombocytopenia (CMS-HCC) Endometrial carcinoma (CMS-HCC) Hepatosplenomegaly Expected: 09/23/2023, Expires: 09/22/2024 [facility] HospitalComment on above:Expected: 09/23/2023, Expires: 09/22/2024Start: 09-23-2023 End: 32-93-0110PL Chest limited W contrast IVCT chest with contrast Imaging Routine Endometrial cancer determined by uterine biopsy (CMS-HCC) Other cirrhosis of liver (CMS-HCC) Thrombocytopenia (CMS-HCC) Endometrial carcinoma (CMS-HCC) Hepatosplenomegaly Expected: 09/23/2023, Expires: 09/22/2024Pro[facility] Work Phone: Comment on above:Expected: 09/23/2023, Expires: 09/22/2024Start: 09-23-2023 End: 43-86-4813Dleebrd encounter cvcdjdaqx99/26/2024 9:00 AM EDT Office Visit Mckenzie Hankins [facility] - Medical Oncology [address] [place] [address] Divya Galloway MD [address] [facility] [address] [place], [place] [address] Mckenzie Macias [facility] - Medical OncologyStart: 09-20-2023 End: 82-83-5318Cnbgddj encounter procedureWhite Hospital - Stress ImagingStart: 09-07-2023 End: 75-60-1427Urmvjpb encounter soigehqtu70/10/2024 10:30 AM EDT Appointment [facility] - Cardiovascular [address] [place] [address] Gonsalo Pettit MD [address] [place] [address] [facility] - CardiovascularStart: 09-07-2023 End: 72-50-0671Tyzasvt encounter kdsiwxzly85/10/2024 9:15 AM EDT Appointment [facility] Cardiovascular [address] [place] [address] [phone] County Health Center - Cardiovascular Start: 08-19-2023 End: 76-67-3807Mtfvhjvt stress test studyStress test (exercise only) Cardiac Services Routine Chest pain, unspecified type Expected: 08/19/2023, Expires: 08/18/2024[facility] Work Phone: Comment on above:Expected: 08/19/2023, Expires: 08/18/2024Start: 04-15-2023 End: 51-98-7898Kpynbjx encounter nwchupmxz89/16/2024 1:00 PM EST Office Visit [facility] [address] [facility] [address] [place] [address] Garry Rome MD [address] [place] [address] Natalio Uriostegui MD [address] [facility] [place] [address] [facility] Physicians CardiologyStart: 04-12-2023 End: 32-54-2372Npesvls encounter mlnueydvl05/13/2024 10:30 AM EST Office Visit Mckenzie Hankins [facility] - Medical Oncology [address] [place] [address] Shaina Jane PA [address] [place], [place] [phone] (Work) Mckenzie Hankins [facility] - Medical OncologyStart: 87-95-7616Vcxcu BMI Follow Up PlanAdult BMI Follow Up PlanProMedica Health SystemStart: 03-25-2023 End: 76-42-7757TH Abdomen limitedUltrasound abdomen limited Imaging Routine Other cirrhosis of liver (CMS-HCC) Expected: 03/25/2023,Expires: 03/25/2024 CYNTHIA LEWIS Work Phone: Comment on above:Expected: 03/25/2023, Expires: 03/25/2024Start: 03-25-2023 End: 18-09-0256Wuzbaqa encounter procedureProRmc [facility] Physicians CardiologyStart: 51-77-3862Bztdojzccf ScreeningDepression ScreeningLakeHealth [facility]wood Medical Center SystemStart: 62-02-0329Isicwmazv vaccinationInfluenza VaccineLakeHealth [facility] Medical Center SystemStart: 71-79-3824Drrzgdxoe vaccinationFlu vaccine (#1)[facility]Start: 31-06-3863GAQAC-19 Vaccine (3 - Moderna risk series)COVID-19 Vaccine (3 - Moderna risk series)[facility] Hospitaltart: 01-34-8957Xxpudfqqe for malignant neoplasm of breastBreast cancer [facility] Hospitalart: 86-00-6939Nxohgowl vaccine (1 of 2)Shingles vaccine (1 of 2)[facility]ENTERStart: 28-22-4518Nxkdkozff for malignant neoplasm of colonBON [facility] Hospitalart: 04-02-2174Znloc panelLipidsAugusta Healthart: 16-60-3559Djwudrov screenDiabetes screenAugusta Healthart: 27-63-5616Orojkfqmb for malignant neoplasm of cervixBON [facility] Start: 46-34-2612Mdrnwmcye for malignant neoplasm of cervixPap smearAugusta Healthart: 39-85-2200Udhtzhobpoiitx of varicella zoster vaccineZoster (Shingles) Vaccine (1 of 2)[facility] Hospitaltart: 13-62-3442KNtE,Tdap and Td Vaccines (1 - Tdap)DTaP,Tdap and Td Vaccines (1 - Tdap)[facility] SystemStart: 68-41-2828TVwN/Tdap/Td vaccine (1 - Tdap)DTaP/Tdap/Td vaccine (1 - Tdap)[facility] Healthart: 92-88-8911Xmmct BMI Follow Up PlanAdult BMI Follow Up [facility] Uniontart: 20-31-8013Cwxifqxp foot examination Diabetic Foot ExamWakeMed Cary Hospitaltart: 15-45-3992JJR screeningHIV screenSentara Obici Hospital: 82-86-8261Kuafyexrjn ScreenDepression ScreenSentara Obici Hospital: 93-52-6388AVHWZ-19 Vaccine (1)COVID-19 Vaccine (1)[facility]: 48-15-1215Iynkeznz screeningDiabetic Ophthalmology ExamHenry County Hospital End: 32-55-7363Lverv-1-Antitrypsin w PhenotypeSENTARA [facility]THERN [facility]ENTER Work Phone: comment on above:1 Occurrences starting 09/07/2021 until 09/07/2021 End: 56-14-7999BCN W Auto Differential panel - BloodCBC with auto diff Lab Routine Endometrial cancer determined by uterine biopsy ([facility]-HCC) Other cirrh osis of liver ([facility]-HCC) Thrombocytopenia ([facility]-HCC) Endometrial carcinoma ([facility]- HCC) Hepatosplenomegaly 1 Occurrences starting 09/23/2023 until 09/22/2024 [facility] Medical CenterCodoonComment on above:1 Occurrences starting 09/23/2023 until 09/22/2024 End: 80-15-2923QYW W Auto Differential panel - BloodCBC with auto diff Lab Routine Thrombocytopenia 1 Occurrences starting 09/24/2024 until 09/24/2025 [employer] Work Phone: Comment on above:1 Occurrences starting 09/24/2024 until 09/24/2025 End: 97-89-9809ABK W Auto Differential panel - BloodCBC auto differential Lab Routine Thrombocytopenia PRN for 5 Occurrences starting 10/01/2024 until 0 10/01/2033[employer] Work Phone: Comment on above:PRN for 5 Occurrences starting 10/01/2024 until 10/01/2033 End: 74-13-5517JtuhvibclvwicEDG [facility] [employer] Work Phone: comudvt on above:1 Occurrences starting 09/07/2021 until 09/07/2021 End: 40-98-4923SHT by PCR QuantitativeBON [employer] Phone: comment on above:Once for 1 Occurrences starting 09/07/2021 until 09/07/2021 End: 69-39-0418JNM DNA, quantitative, PCRCMV DNA, quantitative, PCR Lab Routine Hepatomegaly Splenomegaly 1 Occurrences starting 09/07/2021 until 09/07/2021[employer] Phone: comment on above:1 Occurrences starting 09/07/2021 until 09/07/2021 End: 98-66-0694Ewnatfzfqugcq metabolic 2000 panel - Serum or PlasmaComprehensive metabolic panel Lab Routine Endometrial cancer determined by uterine biopsy (CMS-HCC)Other cirrhosis of liver (CMS-HCC) Thrombocytopenia (CMS-HCC) Endometrial carcinoma (CMS-HCC) Hepatosplenomegaly 1 Occurrences starting 09/23/2023 until 09/22/2024[facility] HospitalRichRelevanceComment on above:1 Occurrences starting 09/23/2023 until 09/22/2024 End: 12-14-4850Vbydxwjzze includes GFR, serumCreatinine includes GFR, serum Lab Routine Endometrial cancer determined by uterine biopsy (CMS-HCC) Other cirrhosis of liver (CMS-HCC) Thrombocytopenia (CMS-HCC) Endometrial carcinoma (CMS-HCC) Hepatosplenomegaly 1 Occurrences starting 09/23/2023 until 09/22/2024 [facility] HospitalNavio HealthComment on above:1 Occurrences starting 09/23/2023 until 09/22/2024 End: 33-51-5983Zorrsjuuxx includes GFR, serumCreatinine includes GFR, serum Lab Routine Chest pain, unspecified type Abnormal stress test Shortness of breath 1 Occurrences starting 12/16/2023 until 12/15/2024[facility] HospitalRichRelevanceComment on above:1 Occurrences starting 12/16/2023 until 12/15/2024 End: 49-55-6418Vizuwztasd includes GFR, serumCreatinine includes GFR, serum Lab Routine Abnormal stress test Chest pain, unspecified type 1 Occurrences starting 02/07/2024 until 02/06/2025[employer] Phone: Comment on above:1 Occurrences starting 02/07/2024 until 5Creatinine includes GFR, serumCreatinine includes GFR, serum Lab Routine Abnormal stress test Chest pain, unspecified type 02/07/2024 11:39 AM ESTBrattleboro Memorial HospitalRichRelevance End: 49-92-1265Jlxkrdwjjl includes GFR, serumCreatinine includes GFR, serum Lab Routine RLQ abdominal pain 1 Occurrences starting 10/17/2024 until 10/17/2025 [facility] HospitalAdyuka SystemComment on above:1 Occurrences starting 10/17/2024 until 10/17/2025 End: 40-93-4915NCV, Quant. PCRPuralytics Phone: comment on above:Once for 1 Occurrences starting 09/07/2021 until 09/07/2021 End: 72-58-8129FEC / ColonoscopyEGD / Colonoscopy GI Routine Periumbilical abdominal pain Diarrhea, unspecified type Black stools 1Occurrences starting 10/17/2024 until 10/17/2025[facility] HospitalRichRelevanceComment on above:1 Occurrences starting 10/17/2024 until 10/17/2025 End: 45-53-0404Nxykfjt-Doherty Virus DNA, Quant PCREpstein-Doherty Virus DNA, Quant PCR Lab Routine Hepatomegaly Splenomegaly 1 Occurrences starting 09/07/2021 until 09/07/2021[employer] Phone: comvyij on above:1 Occurrences starting 09/07/2021 until 09/07/2021 End: 51-92-1673Lxgsczim [Mass/volume] in Serum or PlasmaPuralytics Phone: comydmq on above:1 Occurrences starting 09/07/2021 until 09/07/2021 End: 61-66-1838Wbvkjzo function 2000 panel - Serum or PlasmaPuralytics Phone: comwrus on above:1 Occurrences starting 09/07/2021 until 09/07/2021 End: 24-48-6565Favncgpxyeddl Antibodies, M2, IgGBON [employer] Phone: comment on above:1 Occurrences starting 09/07/2021 until 09/07/2021 End: 98-37-0176Ndioruv Ab [Titer] in Serum by ImmunofluorescenceBOSTON CITY HOSPITALGigOwl Work Phone: comment on above:1 Occurrences starting 09/07/2021 until 09/07/2021atient EducationGastritis Know your [facility] Work Phone: End: 70-08-1756Gzltkp Muscle Antibody QuantBON J Kumar [employer] Work Phone: comhncv on above:1 Occurrences starting 09/07/2021 until 09/07/2021 End: 33-38-7148Yhnqfhbiscs [Mass/volume] in Serum or PlasmaBON J [employer] Work Phone: comibum on above:1 Occurrences starting 09/07/2021 until 09/07/2021 Immunizations Immunization DateImmunizationNotesCare EqltazqfPewmoike06-28-5486lrofjnjuy, injectable, quadrivalent, preservative freeSusan [facility]y Hospital 59-37-8240ncnmxrgkn virus vaccine, unspecified formulationSusan [facility]y Hospital08-14-2017influenza, seasonal, injectable, preservative freeSusan [facility]y Hospital09-26-2016influenza, seasonal, injectable, preservative freeSusan [facility]y Hospital09-24-2014influenza, seasonal, injectableSusan [facility] Hospital Payers DatePayer CategoryPayerPolicy [id number] Care O (unspecified)ENRIQUEZ [employer] [id number] Health Insurance [facility] [employer] [id number] 2023- Present [phone] [address] [place] [address] [id number] [employer]ACE [employer]UCKEY[employer] MONSE YBARRA [id number] 2023-Present [phone] [address] [place] [id number] [id number] 2023Self-pay2003MedicaidBUCKEYE MEDICAID [place] MED[place] [id number] 2002-Present [phone] [place] [id number] 2003Medicaid [facility] Member Subscriber Plan / Payer (Effective 2002-Present) Name: Madhavi Easton Relation to Subscriber: Self Name: Jemma Madhavi S Payer ID: [id number] (IC) Group ID: Type: Not on file Address: [address] [place] [id number] 2.16.840.1.278834.3.57[id number] 2.16.840.1.152663.3.57[id number] 2.16.840.1.693248.3.57[id number] 2.16.840.1.271526.3.57[id number] 2..840.1.606699.3.57[id number] 2.840.1.836023.3.57[id number] 2.840.1.711050.3.57[id number] 2.840.1.932289.3.57[id number] 2.840.1.850040.3.57[id number] 2..840.1.925137.3.57[id number] 2.840.1.436098.3.57[id number] 2.840.1.172910.3.57[id number] 2.840.1.652952.3.57[id number] 2..840.1.870724.3.57[id number] 2.16840.1.439932.3.57[id number] 2.16.840.1.234768.3.57[id number] 2.16.840.1.332833.3.579.2.770532-44-7756Eypyptr499526611 2.16.840.1.875416.3.579.2.594658-11-7268Mbqgskd789898171 2.16840.1.236436.3.579.2.505630-55-1812Trcvokt582605208 2.840.1.527796.3.579.2.507177-62-3328Fziucsv496609117 2.840.1.622339.3.579.2.668886-52-0529Tmzjxeb306175675 2.840.1.889829.3.579.2.397940-52-1786Ofihvut278858179 2.840.1.792753.3.579.2.7[id number] 2.840.1.290368.3.579.2.767959-97-7249Urthmng948842740 2.840.1.148239.3.579.2.746724-87-9645Gkcfntk252663641 2.840.1.599608.3.579.2.005143-34-2654Yijkblp35246623 2.840.1.885737.3.579.2.0[id number] 2.16840.1.242809.3.579.2.240Cumgwdx51281613 2.16840.1.915834.3.579.2.531 [id number] 2.16840.1.833708.3.579.2.531 Social History DateTypeDetailFacilityStart: 07-22-2021 End: 34-81-7633Zkheltj smoking status NHISNever smoked tobaccoPuralytics Phone: start: 07-22-2021 End: 80-84-6352Aoueeyg use and exposureSmokeless tobacco non-userBANNER [facility] [employer] Phone: start: 51-38-5621Yginggu intakeLifetime non-drinker (finding)BON [employer] Phone: start: [id number] SDOH Alcohol Gvcocjoma2NYF [employer] Phone: start: [id number] Assigned At BirthNot on filePuralytics Phone: start: 03-27-2024 End: [id number] beverage intakeCurrent non-drinker of alcohol (finding) [facility] HospitalAdyuka SystemStart: 03-07-2022 End: [id number] of Social functionProOhiohealth Hardin Memorial HospitalLil Monkey Butttart: 03-07-2022 End: [id number] UtilitiesProRmc [facility] [employer] SystemHas the Guest[employer] Systems, gas, oil, or water Gradu[employer] threatened to shut off services in your home in past 12MoNo [facility] SystemAre you now , , , , never or living with a partner?SeparatedProMedica Health SystemHow often to you have a drink containing alcohol?NeverProOhiohealth Hardin Memorial Hospitalca Health SystemHow many standard drinks containing alcohol do you have on a typical day?Patient does not drinkProOhiohealth Hardin Memorial Hospitalca Health SystemDo you feel stress - tense, restless, nervous, or anxious, or unable to sleep at night because yourmind is troubled all the time - these days [OSQ]Very muchProOhiohealth Hardin Memorial HospitalMetranome SystemStart: 33-75-7982Btnridcjv71 [facility] [employer] SystemStart: 10-03-2014 End: 09-32-5979RlpLgipmf (finding)MediaLinktart: 09-38-5737Ytu Assigned At [facility] Medical Equipment Procedure CodeEquipment CodeEquipment Original TextEquipment IdentifierDaluly Sampson Bn - [id number] - [id number]: 54-32-4090Lorm Pp Mri Duo 9.5fr - [id number])[id number], [id number] FDAStart: 07-20-6718Ewqwfhr on above:Description: ARTEM [id number]: 03-25-2020 UNIFINE PENTIPS PLUS 31 gauge x 3/16 [id number]: 03-28-2020 Goals DatePatient GoalDesired Activity/StatePersonal health goalComment on above: Evaluation of progress towards goal: Patient plans to return home with self care.Personal health goalComment on above: Evaluation of progress towards goal: Patient currently independent. Plans to discharge home after kyphoplasty, pending PT/OT evaluation.Personal health goal Personal health goalPersonal health goal Functional Status DateAssessmentResultFacilSouthern Ohio Medical Center Clinical Notes 07-15-2021 to 01-04-2025 Note Date & [id number] History of Present illness Narrative* Yodit Cuba, NAILHEAD PUNCHER-COOK CHILI - 01/04/2025 10:00 AM EST Images from the original note were not included. Chief Complaint: Lower abdominal pain History of Present Illness Madhavi Easton is a 58 y.o. female who presents to the office for several GI complaints. She statesfor the past 2-3 weeks she has had epigastric/periumbilical pain with associated vomiting. She alsoendorses pain on the sides of her abdomen and diarrhea with 2 bowel movements daily. She denies anysick contacts. She denies heartburn. She reports black [...] not remember when her last colonoscopy was. Interval update 01/04/2025: Patient here to reschedule colonoscopy due to poor preparation on last. She had recent episode of abdominal pain again for which she presented to the [place] ER and reportedly had a normal CT scan. Review of Systems Constitutional: Negative for fever and unexpected weight change. HENT: Negative for trouble swallowing. Respiratory: Negative for shortness of breath. Cardiovascular: Negative for chest pain. Gastrointestinal: Positive for abdominal pain and blood in stool. Genitourinary: Negative for dysuria and difficulty urinating. Musculoskeletal: Negative for gait problem. Skin: Negative for rash and wound. Neurological: Negative for dizziness, weakness and light-headedness. Hematological: Does not bruise/bleed easily. Psychiatric/Behavioral: Negative for confusion. Past Medical History: Diagnosis Date Abnormal mammogram Acute leukemia ([facility]) 2014 in remission Anxiety Arthritis Asthma Breast injury Chronic kidney disease COPD (chronic obstructive pulmonary disease) ([facility]) Depression Diabetes mellitus type 2, controlled ([facility]) Dry mouth 05/16/2019 STATES DENTIST SAID ALL TEETH ARE FALLING OUT Dyslipidemia Endometrial cancer ([facility]) 04/05/1989 Epilepsy ([facility]) Essential hypertension, benign GERD (gastroesophageal reflux disease) IBS (irritable bowel syndrome) Kidney stones Migraines Nosebleed Obesity Other cirrhosis of liver ([facility]) 03/19/2021 Ovarian cancer ([facility]) 2021 Nomore cancer now Pneumonia PONV (postoperative nausea and vomiting) Sinusitis, chronic Sleep apnea CPAP Thrombocytopenia Visual impairment Past Surgical History: Procedure Laterality Date AUGMENTATION VERTEBRAL KYPHOPLASTY SPINE T12; L1; L3 N/A 11/24/2021 Performed by Matthew Messer Jr., MD at [facility] CHOLECYSTECTOMY COLONOSCOPY DIAGNOSTIC / SCREENING N/A 12/03/2024 Performed by Jerardo Romo DO at [facility] COLONOSCOPY DIAGNOSTIC / SCREENING N/A 11/05/2024 Performed by Jerardo Romo DO at [facility] DAVINCI HYSTERECTOMY / BSO left SENTINAL LYMPH NODE DISSECTION, right pelvic node disection and pelvic washings Bilateral 10/04/2019 Performed by Oscar Marks MD at [facility] DILATION AND CURETTAGE OF UTERUS 2019 EGD N/A 05/14/2019 Performed by Jerardo Romo DO at [facility] ESOPHAGOGASTRODUODENOSCOPY DIAGNOSTIC N/A 11/05/2024 Performed by Jerardo Romo DO at [facility] HYSTERECTOMY 10/04/2019 INJECTION MEDIAL BRANCH NERVE BLOCK Bilateral C 2/3 3/4 Bilateral 02/02/2019 Performed by Som Mcgee MD at [facility] ARTHROSCOPY Right OOPHORECTOMY 1989 50% OF 1 OVARY REMOVED SHOULDER ARTHROSCOPY Left 06/2008 TONSILLECTOMY child Allergies Allergen Reactions Alogliptin Anaphylaxis Alogliptin Benzoate Anaphylaxis Amoxicillin Swelling Throat swelling Amoxicillin Trihydrate Anaphylaxis Augmentin [Amoxicillin-Pot Clavulanate] Swelling THROAT AND TONGUE SWELLING Clavulanic Acid Anaphylaxis Loratadine Swelling THROAT AND TONGUE SWELLING Motrin [Ibuprofen] Other (See Comments) COAGULATION DISORDER Potassium Clavulanate Anaphylaxis [place] Hives Jardiance [Empagliflozin] Nausea And Vomiting Trulicity [...] type 2 diabetes mellitus., Disp: , Rfl: hydrOXYzine (VISTARIL) 25 mg capsule, Take 1 capsule (25 mg total) by mouth 3 (three) times a day as needed for anxiety., Disp: , Rfl: insulin glargine (LANTUS) 100 unit/mL injection, Inject under the skin nightly., Disp: , Rfl: loperamide (IMODIUM) 2 mg capsule, take 1 capsule by mouth four times a day if needed for diarrhea,Disp: 30 capsule, Rfl: 0 omeprazole (PriLOSEC) 40 mg capsule, Take 1 capsule (40 mg total) by mouth in the morning and at bedtime for 60 days., Disp: 60 capsule, Rfl: 1 sucralfate (CARAFATE) 1 gram tablet, Take 1 tablet (1 g total) by mouth 4 (four) times a day., Disp: 120 tablet, Rfl: 0 traZODone (DESYREL) 50 mg tablet, Take 1 tablet (50 mg total) by mouth nightly as needed for sleep., Disp: , Rfl: peg 3350-sod sulf,dhgl-hsz-ksv 178.7-7.3-0.5 gram recon soln, Take 1 kit by mouth in the morning for 1 dose. Please see instructional sheet given by physicians office., Disp: 1 each, Rfl: 0 No current facility-administered medications for [...] at all Food Insecurity: No Food Insecurity (01/04/2025) Hunger Screening Food Insecurity - Worry: Never True Food Insecurity - Inability: Never True Transportation Needs: No Transportation Needs (03/09/2024) PRAPARE - Transportation Lack of Transportation (Medical): No Lack of Transportation (Non-Medical): No Physical Activity: Sufficiently Active (03/07/2022) Exercise Vital Sign Days of Exercise per Week: 7 days Minutes of Exercise per Session: 40 min Stress: Stress Concern Present (03/07/2022) Taiwanese Aspers of Occupational Health - Occupational Stress Questionnaire Feeling of Stress : Very much Social Connections: Socially Isolated (03/07/2022) Social Connection and Isolation Panel Frequency of Communication with Friends and Family: Three times a week Frequency of Social Gatherings with Friends and Family: Twice a week Attends Scientologist Services: Never Active Member of Clubs or [...] distress. Abdominal: General: There is no distension. Musculoskeletal: General: Normal range of motion. Skin: General: Skin is warm and dry. Neurological: Mental Status: She is alert and oriented to person, place, and time. Mental status is at baseline. Vital Signs: Blood pressure 147/80, pulse 57, height 165.1 cm (5' 5 ), weight 77.6 kg (171 lb), last menstrual period 09/18/2019, not currently . Respiratory Source: No data recorded Admission Weight: Weight: 77.6 kg (171 lb) Labs Lab Results Component Value Date WBC 5.7 12/05/2024 HGB 14.5 12/05/2024 HCT 41.7 12/05/2024 MCV 92 12/05/2024 PLT 107 (L) 12/05/2024 Lab Results Component Value Date GLU 234 (H) 12/05/2024 CALCIUM 8.7 12/05/2024 K 3.6 12/05/2024 CO2 26 12/05/2024 CL 104 12/05/2024 BUN 8 12/05/2024 CREATININE 1.06 (H) 12/05/2024 No results found for: AMYLASE Lab Results Component Value Date LIPASE 26 03/08/2024 Lab Results Component Value Date ALT 31 12/05/2024 AST 29 12/05/2024 ALKPHOS 75 12/05/2024 Lab Results Component Value Date INR 1.1 12/05/2024 INR 1.3 (H) 11/21/2021 INR 1.2 10/31/2019 PROTIME 12.8 12/05/2024 PROTIME 14.4 (H) 11/21/2021 PROTIME 13.1 (H) 10/31/2019 Assessment Madhavi Easton is a 59 y.o.female with lower abdominal pain. Plan Reschedule colonoscopy with 2 days of clear liquids prep. Evaluation included: Preparing to see the patient (e.g., review of tests) Obtaining and/or reviewing separately obtained history Performing a medically appropriate examination and/or evaluation Counseling and educating the patient/family/caregiver Referring and communicating with other health healthcare sales representative Bilateral lower abdominal pain [R10.31, R10.32] SEUN GONZALEZ [facility] General Surgery [place] This note was created with the assistance of a speech recognition program. While intending to generate a timely document that accurately reflects the content of the visit, no guarantee can be provided that every grammatical or spelling mistake has been or will be identified or corrected. Thank you for your understanding. SEUN Gonzalez 01/04/25 1036 documented in this encounterHenry County Hospital10-14-2025 Miscellaneous Notes* Telephone Encounter - Shelley Martel CMA - 12/11/2024 7:41 AM EDT ----- Message from Jerardo Romo DO sent at 12/11/2024 7:42 AM EDT ----- Please let patient know that she had a precancerous tubular adenoma and I recommend repeat colonoscopy for surveillance in 5 years unless problems. Thanks, Dr. Valdes ----- Message ----- From: Holli, Background User Sent: 12/10/2024 1:35 PM EDT To: Jerardo Romo DO documented in this encounterHenry County Hospital10-14-2025 Telephone encounter Note* Telephone Encounter - Shelley Martel CMA - 12/11/2024 7:41 AM EDT ----- Message from Jerardo Romo DO sent at 12/11/2024 7:42 AM EDT ----- Please let patient know that she had a precancerous tubular adenoma and I recommend repeat colonoscopy for surveillance in 5 years unless problems. Thanks, Dr. Valdes ----- Message ----- From: Holli, Background User Sent: 12/10/2024 1:35 PM EDT To: Jerardo Romo DO [facility]10-09-2025 Miscellaneous Notes* Telephone Encounter - Marlee Voss CMA - 12/06/2024 9:50 AM EDT Phoned pt to remind of appointment scheduled on 12/07/24, reminded patient to bring current list ofmedications, photo ID, insurance card or cards,and any copays that will be due at that time. documented in this encounterHenry County Hospital10-09-2025 Telephone encounter Note* Telephone Encounter - Marlee Voss CMA - 12/06/2024 9:50 AM EDT Phoned pt to remind of appointment scheduled on 12/07/24, reminded patient to bring current list ofmedications, photo ID, insurance card or cards,and any copays that will be due at that time. [facility]09-30-2025 Miscellaneous Notes* Perioperative Nursing Note - Ivana Zhong RN - 11/27/2024 3:30 PM EDT Preoperative Education Checklist- General Surgery date: 12/03/24 Surgery time: 07 Arrival time: 06 1. Bring a photo ID and your insurance card with you the day of surgery. You will check in at the main lobby of the [facility]- registration desk is straight ahead as soon as you walk in. Tell them you are here for surgery. 2. If you have a Living Will/Durable Power of Client Service Coordinator for Health Care that is not on [...] after you have bathed. 5. NO nail czech/acrylic on at least one finger. If you are having a hand, wrist or foot surgery then all nail czech and artificial/acrylic nails must be removed from [...] least 8 hours and marijuana for 24 hoursprior to arrival for your surgery. 16. Notify your surgeon if you develop any illness before your surgery. 17. If you are staying overnight, please DO NOT BRING your home medications with you. 18. If you have any questions prior to surgery, please call the Preadmission Testing office at [phone], Mon.-Fri. 7 a.m.-3 p.m. Leave a voicemail [...] days prior to procedure documented in this encounterHenry County Hospital09-30-2025 Nurse Note* Perioperative Nursing Note - Ivana Zhong RN - 11/27/2024 3:30 PM EDT Preoperative Education Checklist- General Surgery date: 12/03/24 Surgery time: 0730 Arrival time: 0610 1. Bring a photo ID and your insurance card with you the day of surgery. You will check in at the main lobby of the [facility]- registration desk is straight ahead as soon as you walk in. Tell them you are here for surgery. 2. If you have a Living Will/Durable Power of Client Service Coordinator for Health Care that is not on [...] after you have bathed. 5. NO nail czech/acrylic on at least one finger. If you are having a hand, wrist or foot surgery then all nail czech and artificial/acrylic nails must be removed from [...] least 8 hours and marijuana for 24 hoursprior to arrival for your surgery. 16. Notify your surgeon if you develop any illness before your surgery. 17. If you are staying overnight, please DO NOT BRING your home medications with you. 18. If you have any questions prior to surgery, please call the Preadmission Testing office at [phone], Mon.-Fri. 7 a.m.-3 p.m. Leave a voicemail [...] Stop taking 0 days prior to procedure [facility]09-30-[facility] Miscellaneous Notes* Telephone Encounter - Tish De La Fuente CMA - 11/27/2024 2:41 PM EDT EMPANELMENT OUTREACH Madhavi Easton has been contacted [...] Patient has not been seen by a [facility] in 3 years. Letter sent regarding establishing care. documented in this encounterHenry County Hospital09-30-2025 Telephone encounter Note* Telephone Encounter - Tish De La Fuente CMA - 11/27/2024 2:41 PM EDT EMPANELMENT OUTREACH Madhavi Easton has been contacted [...] Patient has not been seen by a [facility]CP in 3 years. Letter sent regarding establishing care. [facility]09-12-20[facility] Miscellaneous Notes* Telephone Encounter - Shelley Martel CMA - 11/09/2024 2:12 PM EDT ----- Message from Jerardo Romo DO sent at 11/09/2024 2:13 PM EDT ----- Please let pt. Know that she has chronic inactive gastritis.She should continue her omeprazole and sucralfate. ----- Message ----- From: Holli, Background User Sent: 11/08/2024 9:53 AM EDT To: Jerardo Romo DO * Telephone Encounter - Shelley Martel CMA - 11/09/2024 2:12 PM EDT Spoke with patient regarding pathology results. Patient verbally understood with no further questions. documented in this encounterHenry County Hospital09-12-2025 Telephone encounter Note* Telephone Encounter - Shelley Martel CMA - 11/09/2024 2:12 PM EDT ----- Message from Jerardo Romo DO sent at 11/09/2024 2:13 PM EDT ----- Please let pt. Know that she has chronic inactive gastritis.She should continue her omeprazole and sucralfate. ----- Message ----- From: Holli, Background User Sent: 11/08/2024 9:53 AM EDT To: Jerardo Romo DO [facility]09-[facility] Telephone encounter Note* Telephone Encounter - Shelley Martel CMA - 11/09/2024 2:12 PM EDT Spoke with patient regarding pathology results. Patient verbally understood with no further questions. [facility]09-08-20[facility] Miscellaneous Notes* Telephone Encounter - Shelley Martel CMA - 11/05/2024 10:30 AM EDT ----- Message from SEUN Choe sent at 11/05/2024 8:34 AM EDT ----- Regarding: Results Please let patient know CT was normal. Thank you. ----- Message ----- From: Interface - Rad Results/Orders In 1 Sent: 10/30/2024 11:31 AM EDT To: SEUN Gonzalez * Telephone Encounter - Shelley Martel CMA - 11/05/2024 10:30 AM EDT Spoke with patient regarding CT results. Patient verbally understood with no further questions. documented in this encounterHenry County Hospital09-08-2025 Telephone encounter Note* Telephone Encounter - Shelley Martel CMA - 11/05/2024 10:30 AM EDT ----- Message from SEUN Choe sent at 11/05/2024 8:34 AM EDT ----- Regarding: Results Please let patient know CT was normal. Thank you. ----- Message ----- From: Interface - Rad Results/Orders In 1 Sent: 10/30/2024 11:31 AM EDT To: SEUN Gonzalez [facility]09-08-2025 Telephone encounter Note* Telephone Encounter - Shelley Martel CMA - 11/05/2024 10:30 AM EDT Spoke with patient regarding CT results. Patient verbally understood with no further questions. [facility]09-02-2025 Miscellaneous Notes* Perioperative Nursing Note - Ivana Zhong RN - 10/30/2024 3:00 PM EDT Preoperative Education Checklist- General Surgery date: 11/05/24 Surgery time: 929 Arrival time: 729 1. Bring a photo ID and your insurance card with you the day of surgery. You will check in at the main lobby of the [facility]- registration desk is straight ahead as soon as you walk in. Tell them you are here for surgery. 2. If you have a Living Will/Durable Power of Client Service Coordinator for Health Care that is not on [...] after you have bathed. 5. NO nail czech/acrylic on at least one finger. If you are having a hand, wrist or foot surgery then all nail czech and artificial/acrylic nails must be removed from [...] least 8 hours and marijuana for 24 hoursprior to arrival for your surgery. 16. Notify your surgeon if you develop any illness before your surgery. 17. If you are staying overnight, please DO NOT BRING your home medications with you. 18. If you have any questions prior to surgery, please call the Preadmission Testing office at [phone], Mon.-Fri. 7 a.m.-3 p.m. Leave a voicemail [...] days prior to procedure documented in this encounterHenry County Hospital09-02-2025 Nurse Note* Perioperative Nursing Note - Ivana Zhong RN - 10/30/2024 3:00 PM EDT Preoperative Education Checklist- General Surgery date: 11/05/24 Surgery time: 929 Arrival time: 729 1. Bring a photo ID and your insurance card with you the day of surgery. You will check in at the main lobby of the [facility]- registration desk is straight ahead as soon as you walk in. Tell them you are here for surgery. 2. If you have a Living Will/Durable Power of Client Service Coordinator for Health Care that is not on [...] after you have bathed. 5. NO nail czech/acrylic on at least one finger. If you are having a hand, wrist or foot surgery then all nail czech and artificial/acrylic nails must be removed from [...] least 8 hours and marijuana for 24 hoursprior to arrival for your surgery. 16. Notify your surgeon if you develop any illness before your surgery. 17. If you are staying overnight, please DO NOT BRING your home medications with you. 18. If you have any questions prior to surgery, please call the Preadmission Testing office at [phone], Mon.-Fri. 7 a.m.-3 p.m. Leave a voicemail [...] Stop taking 0 days prior to procedure [facility]08-20-2025 History of Present illness Narrative* Yodit Cuba, NAILHEAD PUNCHER-COOK CHILI - 10/17/2024 2:30 PM EDT Images from the original note were not included. Chief Complaint: Vomiting History of Present Illness Madhavi Easton is a 58 y.o. female who presents to the office for several GI complaints. She statesfor the past 2-3 weeks she has had epigastric/periumbilical pain with associated vomiting. She alsoendorses pain on the sides of her abdomen and diarrhea with 2 bowel movements daily. She denies anysick contacts. She denies heartburn. She reports black [...] History: Diagnosis Date Abnormal mammogram Acute leukemia ([facility]) 2014 in remission Anxiety Arthritis Asthma Breast injury Chronic kidney disease COPD (chronic obstructive pulmonary disease) ([facility]) Depression Diabetes mellitus type 2, controlled ([facility]) Dry mouth 05/16/2019 STATES DENTIST SAID ALL TEETH ARE FALLING OUT Dyslipidemia Endometrial cancer ([facility]) 04/05/1989 Epilepsy ([facility]) Essential hypertension, benign GERD (gastroesophageal reflux disease) IBS (irritable bowel syndrome) Kidney stones Migraines Nosebleed Obesity Other cirrhosis of liver ([facility]) 03/19/2021 Ovarian cancer ([facility]) 2021 Nomore cancer now Pneumonia PONV (postoperative nausea and vomiting) Sinusitis, chronic Sleep apnea CPAP Thrombocytopenia Visual impairment Past Surgical History: Procedure Laterality Date AUGMENTATION VERTEBRAL KYPHOPLASTY SPINE T12; L1; L3 N/A 11/24/2021 Performed by Matthew Messer Jr., MD at [facility] CHOLECYSTECTOMY DAVINCI HYSTERECTOMY / BSO left SENTINAL LYMPH NODE DISSECTION, right pelvic node disection and pelvic washings Bilateral 10/04/2019 Performed by Oscar Marks MD at [facility] DILATION AND CURETTAGE OF UTERUS 2019 EGD N/A 05/14/2019 Performed by Jerardo Romo DO at [facility] HYSTERECTOMY 10/04/2019 INJECTION MEDIAL BRANCH NERVE BLOCK Bilateral C 04/02 05/01 Bilateral 02/02/2019 Performed by Som Mcgee MD at [facility] KNEE ARTHROSCOPY Right OOPHORECTOMY 1989 50% OF 1 OVARY REMOVED SHOULDER ARTHROSCOPY Left 06/2008 TONSILLECTOMY child Allergies Allergen Reactions Alogliptin Anaphylaxis Alogliptin Benzoate Anaphylaxis Amoxicillin Swelling Throat swelling Amoxicillin Trihydrate Anaphylaxis Augmentin [Amoxicillin-Pot Clavulanate] Swelling THROAT AND TONGUE SWELLING Clavulanic Acid Anaphylaxis Loratadine Swelling THROAT AND TONGUE SWELLING Motrin [Ibuprofen] Other (See Comments) COAGULATION DISORDER Potassium Clavulanate Anaphylaxis [place] Hives Jardiance [Empagliflozin] Nausea And Vomiting Trulicity [...] needed for diarrhea,Disp: 30 capsule, Rfl: 0 omeprazole (PriLOSEC) 40 mg capsule, take 1 capsule by mouth once daily, Disp: 30 capsule, Rfl: 10 traZODone (DESYREL) 50 mg tablet, Take 1 tablet (50 mg total) by mouth nightly as needed for sleep., Disp: , Rfl: sod sulf-pot chloride-mag sulf 1.479-0.188- 0.225 gram tablet, Please see instructional sheet givenby physicians office., Disp: 24 tablet, Rfl: 0 [...] 40 min Stress: Stress Concern Present (03/07/2022) [place]ese Aspers of Occupational Health - Occupational Stress Questionnaire Feeling of Stress : Very much Social Connections: Socially Isolated (03/07/2022) Social Connection and Isolation Panel [NHANES] Frequency of Communication with Friends and Family: Three times a week Frequency of Social Gatherings with Friends and Family: Twice a week Attends Scientologist Services: Never Active Member of Clubs or [...] the right lower quadrant and periumbilical area. Thereis no guarding. Musculoskeletal: General: Normal range of [...] patient/family/caregiver Referring and communicating with other health healthcare sales representative Vomiting, unspecified vomiting type, unspecified whether nausea present [R11.10] SEUN GONZALEZ [facility] Physicians General Surgery [place] This note was created with the assistance of a speech recognition program. While intending to generate a timely document that accurately reflects the content of the visit, no guarantee can be provided that every grammatical or spelling mistake has been or will be identified or corrected. Thank you for your understanding. SEUN Gonzalez 10/18/24 1010 documented in this encounterHenry County Hospital08-18-2025 Miscellaneous Notes* Telephone Encounter - Caroline Kwong - 10/15/2024 12:16 PM EDT Madhavi called the office at 8:33 am and left a message to cancel her appointment as she doesn't have a referral. 8:56 am I called Madhavi back and left a message on her voicemail that she can keep her appointment,we can just see her as a self referral. Patient didn't come in for her 12 noon appointment. documented in this encounterHenry County Hospital08-18-2025 Telephone encounter Note* Telephone Encounter - Caroline Kwong - 10/15/2024 12:16 PM EDT Madhavi called the office at 8:33 am and left a message to cancel her appointment as she doesn't have a referral. 8:56 am I called Madhavi back and left a message on her voicemail that she can keep her appointment,we can just see her as a self referral. Patient didn't come in for her 12 noon appointment. [facility]08-04-[facility]25 History of Present illness Narrative* Ashley Francisco APRN-JF - 10/01/2024 8:30 AM EDT Images from the original note were not included. [facility] [address] [place] [id number] 10/01/2024 Chief Complaint Patient presents with Follow-up [...] new vaginal bleeding or pain. She denies anyother overt bleeding. CT reviewed without any re-occurrence of cancer at this time. All questions answered to the patient's satisfaction. History of Present Illness: Oncology History Overview Note Ms. Easton is a 57 y.o. female with history of a seizure disorder has been on Depakote for years. Off Depakote 2017. Has been followed by our office for borderline thrombocytopenia and mild lymphocytosis. 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 MMR intact. She is s/p 6 cycles [place] doublet therapy. 10/04/19 - RALH-LSNLD, RLND, BSO 11/07/19 - 12/12/19 Carbo/Taxol x 2 cycles (thrombocytopenia) 01/16/20 - 03/26/2020 Cis/Taxol (4 cycles) 04/10/20 - post tx scans show lymphadenopathy related to previous SLND Endometrial cancer determined by uterine biopsy ([facility]) 09/25/2019 Initial Diagnosis Endometrial cancer determined by uterine biopsy ([facility]) 10/19/2019 - Cancer Staged Staging form: Corpus [...] This Visit Digestive Other cirrhosis of liver ([facility]) Genitourinary Endometrial cancer determined by uterine biopsy ([facility]) - Primary Hematopoietic and Hemostatic Thrombocytopenia Relevant Orders CBC auto differential Other Visit Diagnoses Endometrial carcinoma ([facility]) Hepatosplenomegaly Impression: Latest Reference Range & Units [...] procedures Referring and communicating with other health healthcare sales representative (not separately reported) Documenting clinical information in the electronic or other health record Independently interpreting results (not separately reported) and communicating results to the patient/family/caregiver Care coordination (not separately reported) Please note that portions of this note may have been generated using voice recognition [employer] dictation software. Although every effort was made to ensure the accuracy of any automated transcriptions, some errors may have occurred. SEUN Guerrero 10/01/24 1451 documented in this encounterFostoria City HospitalMetranome [id number] Instructions* Patient Instructions* SEUN Guerrero - 10/01/2024 8:30 AM EDT Labs reviewed Platelets 83k, stable Reviewed CT AB/P (s/p RALH-LSNLD, RLND, BSO -- chemo completed 12/2019), currently on surveillance No evidence of cancer Hepatosplenomegaly noted Cirrhosis history Following with PCP and GI for weight loss Follow up in 1 year with labs prior, CBC-d documented in this encounterBrattleboro Memorial HospitalXtremeData [facility] [id number] History of Present illness Narrative* Gaviota Hayes MD - 06/18/2024 10:00 AM EDT Madhavi Easton Date of visit: 06/18/2024 Date of : 1965 Age: 58 y.o. Patient Active Problem List Diagnosis Thrombocytopenia Spondylosis without myelopathy or radiculopathy, lumbar region Spondylosis without myelopathy or radiculopathy, lumbosacral region Cervical spondylosis without myelopathy Stenosis of cervical spine Cervical adenopathy Gastroesophageal reflux disease without esophagitis Headache FOREIGN on CPAP Moderate persistent asthma without complication Endometrial cancer determined by uterine biopsy ([facility]) Obesity (BMI 30.0-34.9) Essential hypertension, benign Chronic kidney disease Diabetes mellitus type 2, controlled ([facility] Dyslipidemia Hyperglycemia Dysuria Acute cystitis with hematuria Fall (on) (from) other stairs and steps, initial encounter Injury of nose Injury of left foot Injury of right foot Orbital contusion, left, sequela Other cirrhosis of liver (CMS-HCC) Fall 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 (CMS-HCC) Pathological fracture of lumbar vertebra due to secondary osteoporosis (CMS-HCC) Age-related osteoporosis with current pathological fracture Other insomnia Umbilical hernia Gastroenteritis Allergies Allergen Reactions Alogliptin Anaphylaxis Alogliptin Benzoate Anaphylaxis Amoxicillin Swelling Throat swelling Amoxicillin Trihydrate Anaphylaxis Augmentin [Amoxicillin-Pot Clavulanate] Swelling THROAT AND TONGUE SWELLING Clavulanic Acid Anaphylaxis Loratadine Swelling THROAT AND TONGUE SWELLING Motrin [Ibuprofen] Other (See Comments) COAGULATION DISORDER Potassium Clavulanate Anaphylaxis [place] Hives Jardiance [Empagliflozin] Nausea And Vomiting Albuterol [...] % flush 10 mL 10 mL intravenous PRN Phoenix Kemp MD (Kenny) 10 mL at 05/15/21 6991 Chief Complaint Patient presents with Follow-up EST [...] History: Diagnosis Date Abnormal mammogram Acute leukemia ([facility]) 2014 in remission Anxiety Arthritis Asthma Breast injury Chronic kidney disease COPD (chronic obstructive pulmonary disease) ([facility]) Depression Diabetes mellitus type 2, controlled ([facility]) Dry mouth 05/16/2019 STATES DENTIST SAID ALL TEETH ARE FALLING OUT Dyslipidemia Endometrial cancer ([facility]) 04/05/1989 Epilepsy ([facility]) Essential hypertension, benign GERD (gastroesophageal reflux disease) IBS (irritable bowel syndrome) Kidney stones Migraines Nosebleed Obesity Other cirrhosis of liver ([facility]) 03/19/2021 Ovarian cancer ([facility]) 2021 Nomore cancer now Pneumonia PONV (postoperative nausea and vomiting) Sinusitis, chronic Sleep apnea CPAP Thrombocytopenia Visual impairment No data recorded No data recorded No data recorded Past Surgical History: Procedure Laterality Date AUGMENTATION VERTEBRAL KYPHOPLASTY SPINE T12; L1; L3 N/A 11/24/2021 Performed by Matthew Messer Jr., MD at [facility] CHOLECYSTECTOMY DAVINCI HYSTERECTOMY / BSO left SENTINAL LYMPH NODE DISSECTION, right pelvic node disection and pelvic washings Bilateral 10/04/2019 Performed by Oscar Marks MD at [facility] DILATION AND CURETTAGE OF UTERUS 2019 EGD N/A 05/14/2019 Performed by Jerardo Romo DO at [facility] HYSTERECTOMY 10/04/2019 INJECTION MEDIAL BRANCH NERVE BLOCK Bilateral C 2/3 3/4 Bilateral 02/02/2019 Performed by Som Mcgee MD at [facility] ARTHROSCOPY Right OOPHORECTOMY 1989 50% [...] 40 min Stress: Stress Concern Present (03/07/2022) Taiwanese Aspers of Occupational Health - Occupational Stress Questionnaire Feeling of Stress : Very much Social Connections: Socially Isolated (03/07/2022) Social Connection and Isolation Panel [NHANES] Frequency of Communication with Friends and Family: Three times a week Frequency of Social Gatherings with Friends and Family: Twice a week Attends Scientologist Services: Never Active Member of Clubs or [...] (around 06/18/2025). PCP: LAMONT Barker Referring Physician: PIERO Shirley [address] [place] [address] documented in this encounterHenry County Hospital04-18-2025 Miscellaneous Notes* Telephone Encounter - Marlee Voss CMA - 06/15/2024 10:12 AM EDT Called patient to remind them to bring their most current copy of their medication list with them to their appt. Patient verbalizes understanding. documented in this encounterHenry County Hospital04-18-2025 Telephone encounter Note* Telephone Encounter - Marlee Voss CMA - 06/15/2024 10:12 AM EDT Called patient to remind them to bring their most current copy of their medication list with them to their appt. Patient verbalizes understanding. [facility]04-16-2025 Miscellaneous Notes* Telephone Encounter - Francine Rai - 06/13/2024 10:27 AM EDT LMOM letting pt know that her ins is OON for PPC for her appt on 06/18. CHANEL 06-13-24 documented in this encounterFostoria City HospitalWhenSoon04-16-2025 Telephone encounter Note* Telephone Encounter - Francine Rai - 06/13/2024 10:27 AM EDT LMOM letting pt know that her ins is OON for PPC for her appt on 06/18. CHANEL 06-13-24 [facility] [employer] [id number] [place] [address] Gastroenterology H&P Signed Patient: Madhavi Easton MR#: [id number] : 1965 Acct:[id number] Age/Sex: 58 / F Adm Date: 5 Loc: Room: Type: [facility] Attending Dr: Pedro Emery MD Copies to: MD Lucia Remy APRN,JF~ Date of Service: 05/10/2024 HISTORY & PHYSICAL: Patient's history with special attention to the cardiovascular, pulmonary systems and the current problem was reviewed with the patient immediately prior to the procedure. Present medications and doses reviewed in the EMR. Allergies and pertinent laboratory tests were also re viewedat this time in the EMR. The physical [...] an appropriate candidate for the procedure. Pedro Emery M.D. Documented By: Pedro Emery MD 05/10/241344 Signed By: 05/10/24 [address] [facility]03-13-2025 [place] [address] EGD Procedure Note Signed Patient: Madhavi Easton MR#: [id number] : 1965 Acct:[id number] Age/Sex: 58 / F Adm Date: 5 Loc: Room: Type: [facility] Attending Dr: Pedro Emery MD Copies to: MD Lucia Remy APRN,COOK CHILI~ Esophagogastroduodenoscopy Date/Provider Date: 05/10/2024 Pedro Emery MD Procedure Findings: Procedure: EGD with biopsy Indication: 58-year-old female here for EGD for evaluation of GERD and epigastric pain. Pre-operative diagnosis: GERD and epigastric pain Post-operative diagnosis: Gastritis Sedation: propofol per anesthesia dept O2 oximetry, hemodynamic monitoring was performed pre, during, and post procedure. Patient was identified, H&P completed, patient was given full explanationof the procedure as well as associated risks and written consent was obtained prior to procedure. Patient expressed complete understanding of the procedure as well as alternatives to the procedure and to anesthesia and agreed to proceedwith the procedure as indicated. Patient was immediately reassessed prior to IVsedation. Following IV sedation, patient was placed in the left lateral decubitus position. Bite block was inserted. Endoscope was passed through the mouth, into the esophagus. Endoscope was advanced into the stomach through the pyloricchannel and into the 2nd portion of duodenum by direct visualization. Endoscopewas withdrawn into the stomach and retroflexion was performed. The endoscope was straightened,the stomach was decompressed. Endoscope was withdrawn into the esophagus then completely removed with the findings as below. Findings: DUODENUM: bulb and descending portion appeared normal. Biopsies were done usingbiopsy forceps to assess for celiac. STOMACH: Erythematous mucosa noted in the antrum and gastric body otherwise pyloric channel, antrum, body, fundus and cardia, including retroflexed views appear normal. Gastric biopsies were done using biopsy forceps to assess for H.pylori. ESOPHAGUS: Diaphragmatic hiatus was 41 cm from incisors and GE junction (upper margin of gastric folds) was at 41 cm from incisors. Squamocolumnar junction was at 41 cm from incisors. Mucosa appearednormal. Biopsy taken: Yes Complications: None EBL: Minimal Recommendations: -Start omeprazole 40 mg daily -Follow up pathology. If gastric biopsies positive for H. pylori we will treat using quadruple therapy Following a period of recovery, patient was seen and given full explanation of the procedure. Patient tolerated the procedure well and will be discharged in satisfactory, stable condition. Pedro Emery M.D. Documented By: Pedro Emery MD 05/10/24 1345 Signed By: 05/10/[address] [place], [place] [address]02-24-2025 Evaluation note* Diagnosis Onset Date Resolution Status Admit Date Abdominal pain acuteFebruary 2024 9:54amDyspepsiaacuteFebruary 2024 9:54amGERD (gastroesophageal reflux disease)acuteFebruary 2024 9:54amUnexplained weight lossacuteFebruary 2024 9:54am [facility] Work Phone: 1(849) 913-551701-28-2025 History of Present illness Narrative* Alonzo Torrez [...] ago. She iss scheduled to see a cook jelly She was worried that these symptoms are [...] History: Diagnosis Date Abnormal mammogram Acute leukemia ([facility]) 2014 in remission Anxiety Arthritis Asthma Breast injury Chronic kidney disease COPD (chronic obstructive pulmonary disease) ([facility]) Depression Diabetes mellitus type 2, controlled ([facility]) Dry mouth 05/16/2019 STATES DENTIST SAID ALL TEETH ARE FALLING OUT Dyslipidemia Endometrial cancer ([facility]) 04/05/1989 Epilepsy ([facility]) Essential hypertension, benign GERD (gastroesophageal reflux disease) IBS (irritable bowel syndrome) Kidney stones Migraines Nosebleed Obesity Other cirrhosis of liver ([facility]) 03/19/2021 Ovarian cancer ([facility]) 2021 Nomore cancer now Pneumonia PONV (postoperative nausea and vomiting) Sinusitis, chronic Sleep apnea CPAP Thrombocytopenia ([facility]) Visual impairment Past Surgical History: Procedure Laterality Date AUGMENTATION VERTEBRAL KYPHOPLASTY SPINE T12; L1; L3 N/A 11/24/2021 Performed by Matthew Messer Jr., MD at [facility] CHOLECYSTECTOMY [facility] HYSTERECTOMY / BSO left SENTINAL LYMPH NODE DISSECTION, right pelvic node disection and pelvic washings Bilateral 10/04/2019 Performed by Oscar Marks MD at [facility] DILATION AND CURETTAGE OF UTERUS 2019 EGD N/A 05/14/2019 Performed by Jerardo Romo DO at [facility] HYSTERECTOMY 10/04/2019 INJECTION MEDIAL BRANCH NERVE BLOCK Bilateral C 2/3 3/4 Bilateral 02/02/2019 Performed by Som Mcgee MD at [facility] KNEE ARTHROSCOPY Right OOPHORECTOMY 1989 50% OF 1 OVARY REMOVED SHOULDER ARTHROSCOPY Left 06/2008 TONSILLECTOMY child Allergies Allergen Reactions Alogliptin Anaphylaxis Alogliptin Benzoate Anaphylaxis Amoxicillin Swelling Throat swelling Amoxicillin Trihydrate Anaphylaxis Augmentin [Amoxicillin-Pot Clavulanate] Swelling THROAT AND TONGUE SWELLING Clavulanic Acid Anaphylaxis Loratadine Swelling THROAT AND TONGUE SWELLING Motrin [Ibuprofen] Other (See Comments) COAGULATION DISORDER Potassium Clavulanate Anaphylaxis [place] Hives Jardiance [Empagliflozin] Nausea And Vomiting Albuterol [...] 40 min Stress: Stress Concern Present (03/07/2022) [place]ese Aspers of Occupational Health - Occupational Stress Questionnaire Feeling of Stress : Very much Social Connections: Socially Isolated (03/07/2022) Social Connection and Isolation Panel [NHANES] Frequency of Communication with Friends and Family: Three times a week Frequency of Social Gatherings with Friends and Family: Twice a week Attends Scientologist Services: Never Active Member of Clubs or [...] of the abdomen without high-grade transition point. Sipp-dk-pwwvaosv colonic stool burden. Nonvisualized appendix. No pericecal [...] patient/family/caregiver Referring and communicating with other health healthcare sales representative Alonzo Torrez MD [facility] [place] documented in this encounterHenry County Hospital12-10-2024 History of Present illness Narrative* Lesley Gaffney RN - 02/07/2024 11:34 AM EST Pt at lab, needs update GRADER OPERATOR lab for upcoming CTA cors 02/14/24. Pt had prev. GRADER OPERATOR done 12/22/23. documented in this encounterHenry County Hospital10-18-2024 Miscellaneous Notes* Telephone Encounter - Elvia Pappas [...] that this is managed by her PCP. Food And Beverage Analyst called PCP but there are no providers in office. Office staff will message physician asking about clearance. Clearance request letter created and faxed to PCP @ [phone] Patient notes that the only days she cannot go for testing is Wednesdays. documented in this encounterHenry County Hospital10-18-2024 Telephone encounter Note* Telephone Encounter - [...] that this is managed by her PCP. Food And Beverage Analyst called PCP but there are no providers in office. Office staff will message physician asking about clearance. Clearance request letter created and faxed to PCP @ [phone] Patient notes that the only days she cannot go for testing is Wednesdays. [facility]10-18-[facility] History of Present illness Narrative* Som Valenzuela MD - 12/16/2023 1:15 PM EDT Images from the original note were not included. [facility] [address] [place] [address] Reason for visit: Follow-up hypertension, chest discomfort [...] (See Comments) COAGULATION DISORDER Potassium Clavulanate Anaphylaxis [place] Hives Jardiance [Empagliflozin] Nausea And Vomiting Albuterol [...] History: Diagnosis Date Abnormal mammogram Acute leukemia ([facility]) 2015 in remission Anxiety Arthritis Asthma Breast injury Chronic kidney disease COPD (chronic obstructive pulmonary disease) ([facility]) Depression Diabetes mellitus type 2, controlled ([facility]) Dry mouth 05/16/2019 STATES DENTIST SAID ALL TEETH ARE FALLING OUT Dyslipidemia Endometrial cancer ([facility]) 04/05/1989 Epilepsy ([facility]) Essential hypertension, benign GERD (gastroesophageal reflux disease) IBS (irritable bowel syndrome) Kidney stones Migraines Nosebleed Obesity Other cirrhosis of liver ([facility]) 03/19/2021 Ovarian cancer ([facility]) 2021 Nomore cancer now Pneumonia PONV (postoperative nausea and vomiting) Sinusitis, chronic Sleep apnea CPAP Thrombocytopenia ([facility]) Visual impairment Past Surgical History: Procedure Laterality Date AUGMENTATION VERTEBRAL KYPHOPLASTY SPINE T12; L1; L3 N/A 11/24/2021 Performed by Matthew Messer Jr., MD at [facility] CHOLECYSTECTOMY DAVINCI HYSTERECTOMY / BSO left SENTINAL LYMPH NODE DISSECTION, right pelvic node disection and pelvic washings Bilateral 10/04/2019 Performed by Oscar Marks MD at [facility] DILATION AND CURETTAGE OF UTERUS 2019 EGD N/A 05/14/2019 Performed by Jerardo Romo DO at [facility] HYSTERECTOMY 10/04/2019 INJECTION MEDIAL BRANCH NERVE BLOCK Bilateral C /3 /4 Bilateral 02/02/2019 Performed by Som Mcgee MD at [facility] ARTHROSCOPY Right OOPHORECTOMY 1989 50% [...] 40 min Stress: Stress Concern Present (03/07/2022) Taiwanese Aspers of Occupational Health - Occupational Stress Questionnaire Feeling of Stress : Very much Social Connections: Socially Isolated (03/07/2022) Social Connection and Isolation Panel [NHANES] Frequency of Communication with Friends and Family: Three times a week Frequency of Social Gatherings with Friends and Family: Twice a week Attends Scientologist Services: Never Active Member of Clubs or Organizations: No Attends Club or Organization Meetings: Never Marital Status: Interpersonal Safety: Unknown (04/21/2023) Received from [facility] Safety & Environment Fear of Current or [...] Som Valenzuela Jr, MD documented in this encounterHenry County Hospital10-17-2024 Miscellaneous Notes* Telephone Encounter - Marlee Voss CMA - 12/15/2023 8:43 AM EDT Left message for patient to remind them to bring their most current medication list with them to their appointment. documented in this encounterHenry County Hospital10-17-2024 Telephone encounter Note* Telephone Encounter - Marlee Voss CMA - 12/15/2023 8:43 AM EDT Left message for patient to remind them to bring their most current medication list with them to their appointment. [facility]08-07-2024 Miscellaneous Notes* Telephone Encounter - Marlee Voss CMA - 10/05/2023 10:16 AM EDT Left message for patient to remind them to bring their most current medication list with them to their appointment. documented in this encounterHenry County Hospital08-07-2024 Telephone encounter Note* Telephone Encounter - Marlee Voss CMA - 10/05/2023 10:16 AM EDT Left message for patient to remind them to bring their most current medication list with them to their appointment. [facility]07-26-[facility] History of Present illness Narrative* Sonia Leonard RN - 09/23/2023 9:06 AM EDT The patient is here for 1 year surveillance care for thrombocytopenia and lymphocytosis The patient remains stable, Dr Galloway recommends the following: CT C/A/P in 2-3 weeks. F/u in 03/2024, CBC, CMP, Orders and calendar given to patient, patient verbalized understanding of instructions given documented in this encounterHenry County Hospital07-26-2024 History of Present illness Narrative* Divya [...] MMR intact. She is s/p 6 cycles [place] doublet therapy. Interval history: The patient was [...] History: Diagnosis Date Abnormal mammogram Acute leukemia ([facility]) 2014 in remission Anxiety Arthritis Asthma Breast injury Chronic kidney disease COPD (chronic obstructive pulmonary disease) ([facility]) Depression Diabetes mellitus type 2, controlled ([facility]) Dry mouth 05/16/2019 STATES DENTIST SAID ALL TEETH ARE FALLING OUT Endometrial cancer ([facility]) 04/05/1989 [facility] [facility] GERD (gastroesophageal reflux disease) Heart murmur Hyperlipidemia Hypertension IBS (irritable bowel syndrome) Kidney stones Migraines Nosebleed Obesity Other cirrhosis of liver ([facility]) 03/19/2021 Ovarian cancer ([facility] 2021 Nomore cancer now Pneumonia PONV (postoperative nausea and vomiting) Sinusitis, chronic Sleep apnea CPAP Thrombocytopenia ([facility] Visual impairment Past Surgical History: Procedure Laterality Date AUGMENTATION VERTEBRAL KYPHOPLASTY SPINE T12; L1; L3 N/A 11/24/2021 Performed by Matthew Messer Jr., MD at [facility] CHOLECYSTECTOMY DAVINCI HYSTERECTOMY / BSO left SENTINAL LYMPH NODE DISSECTION, right pelvic node disection and pelvic washings Bilateral 10/04/2019 Performed by Oscar Marks MD at [facility] DILATION AND CURETTAGE OF UTERUS 2019 EGD N/A 05/14/2019 Performed by Jerardo Romo DO at [facility] HYSTERECTOMY 10/04/2019 INJECTION MEDIAL BRANCH NERVE BLOCK Bilateral C /3 3/4 Bilateral 02/02/2019 Performed by Som Mcgee MD at [facility] KNEE ARTHROSCOPY Right OOPHORECTOMY 1989 50% [...] 40 min Stress: Stress Concern Present (03/07/2022) Taiwanese Aspers of Occupational Health - Occupational Stress Questionnaire Feeling of Stress : Very much Social Connections: Socially Isolated (03/07/2022) Social Connection and Isolation Panel [NHANES] Frequency of Communication with Friends and Family: Three times a week Frequency of Social Gatherings with Friends and Family: Twice a week Attends Scientologist Services: Never Active Member of Clubs or Organizations: No Attends Club or Organization Meetings: Never Marital Status: Received from [facility] Safety & Environment Allergies Allergen Reactions Alogliptin Anaphylaxis Alogliptin Benzoate Anaphylaxis Amoxicillin Swelling Throat swelling Amoxicillin Trihydrate Anaphylaxis Augmentin [Amoxicillin-Pot Clavulanate] Swelling THROAT AND TONGUE SWELLING Clavulanic Acid Anaphylaxis Loratadine Swelling THROAT AND TONGUE SWELLING Motrin [Ibuprofen] Other (See Comments) COAGULATION DISORDER Potassium Clavulanate Anaphylaxis [place] Hives Jardiance [Empagliflozin] Nausea And Vomiting Albuterol [...] patient's insurance please point the Pt to [id number] 4% lidocaine patches Dose: 1 patch Signed [...] female, Endometrial cancer determined by uterine biopsy ([facility]) Dose: 17 g Signed by: SERGO Yan [...] Genitourinary Endometrial cancer determined by uterine biopsy ([facility]) - Primary Hematopoietic and Hemostatic Thrombocytopenia (CMS-HCC) [...] this note were generated using voice recognition [employer] dictation software. Although every effort was made to ensure the accuracy of this automated stock patcher, some errors in stock patcher may have occurred. CC: Patient Care Team: Michelle Rebollar PA-C as PCP - General (Physician Wet Milling Wheel Operator) Peter Smith DO as Consulting Physician (Psychiatry) Janette Stone DO as Referring Physician (Neurology) Divya Galloway MD as Consulting Physician (Hematology) SERGO Conway as Physician Wet Milling Wheel Operator (Gynecologic Oncology) Oscar Marks MD as Referring Physician (Gynecologic Oncology) China Black [facility] as Genetic Counselor (Oncology) Lia Ramirez RN as Registered Nurse Matthew Messer Jr., MD as Surgeon (Orthopedic Surgery) PCP:MICHELLE REBOLLAR Referring MD: Michelle Rebollar PA-C documented in this encounterBrattleboro Memorial HospitalRichRelevance07-26-2024 Instructions* Patient Instructions* Divya Galloway MD - 09/23/2023 9:[address] C/A/P in 2-3 weeks. F/u in 03/2024, CBC, CMP, documented in this encounterBrattleboro Memorial HospitalRichRelevance07-15-2024 Miscellaneous Notes* Telephone Encounter - Oxana Stafford RN - 09/12/2023 10:15 AM EDT Peer to peer for [employer] 09/12/23 today at 3:[address] note ans stress faxed. Thank you!! ER KEARA TRACKING#[id number] DENIED. P2P EXPIRES EOD 09/16/23 P2P#[phone]; NO APPT NECESSARY DENIAL REASON: Prior to an approval, the following doctor's notes should be sent: a doctor's note with a reason why a heart test where you walk (Exercise Stress Test) without heart pictures cannot be done. SUBMITTED: ECHO, EKG, STRESS TEST RESULT, NUC STRESS ORDER, OV 12 16 22 & ED VISIT. * Telephone Encounter - SEUN Romo - 09/12/2023 [...] back to make appt.slm documented in this encounterBrattleboro Memorial HospitalTagrule [id number] Telephone encounter Note* Telephone Encounter - Oxana Stafford RN - 09/12/2023 10:15 AM EDT Peer to peer for [employer] 09/12/23 today at 3:[address] note ans stress faxed. Thank you!! ER [facility] TRACKING#[id number] DENIED. P2P EXPIRES EOD 09/16/23 P2P#[phone]; NO APPT NECESSARY DENIAL REASON: Prior to an approval, the following doctor's notes should be sent: a doctor's note with a reason why a heart test where you walk (Exercise Stress Test) without heart pictures cannot be done. SUBMITTED: ECHO, EKG, STRESS TEST RESULT, NUC STRESS ORDER, OV 12 16 22 & ED VISIT. [employer]07-15-2024 Telephone encounter Note* Telephone Encounter - SEUN Romo - 09/12/2023 10:15 AM EDT This is being denied because the patient needs to be seen either in the office or through telehealth within 6 months of the test that is being requested. Also, they do not have the stress test results. The doctor could not upload this. Please re send. Thank you so much [employer] Work Phone: [phone] Telephone encounter Note* Telephone Encounter - Oxana Staffrod RN - 09/12/2023 10:15 AM EDT Called pt LM on answering machine to call back to make appt.slm [employer]06-20-2024 Miscellaneous Notes* Telephone Encounter - Madhavi Cruz RN - 08/18/2023 11:37 AM EDT PER [facility] TRACKING#[id number] DENIED. P2P EXPIRES EOD 08/23/23 P2P # [phone]; NO APPT NECESSARY DENIAL REASON: Prior to an approval, the following doctor's notes should be sent: a doctor's note with a reason why a heart test where you walk (Exercise Stress Test) without heart pictures cannot be done. * Telephone Encounter - Madhavi Cruz RN - 08/18/2023 11:37 AM EDT [employer] Beverage Analyst called and spoke w/ Pt. Echo and Cardiolyte was ordered by Dr. HAWTHORNE 12/16/22. Hasn't been scheduled until 09/07/23. Pt states had other health issues and just now doing it. Chart reflects Endometrial cancer. [employer] Analyst called and spoke w/ KEARA- Insurance would [...] Pt aware. Precert notified documented in this encounterFostoria City HospitalWhenSoon06-20-2024 Telephone encounter Note* Telephone Encounter - Madhavi Cruz RN - 08/18/2023 11:37 AM EDT PER [facility] TRACKING#[id number] DENIED. P2P EXPIRES EOD 08/23/23 P2P # [phone]; NO APPT NECESSARY DENIAL REASON: Prior to an approval, the following doctor's notes should be sent: a doctor's note with a reason why a heart test where you walk (Exercise Stress Test) without heart pictures cannot be done. [facility] [employer][id number] Telephone encounter Note* Telephone Encounter - Madhavi Cruz RN - 08/18/2023 11:37 AM EDT Food And Beverage Analyst called and spoke w/ Pt. Echo and Cardiolyte was ordered by Dr. HAWTHORNE 12/16/22. Hasn't been scheduled until 09/07/23. Pt states had other health issues and just now doing it. Chart reflects Endometrial cancer. Food And Beverage Analyst called and spoke w/ KEARA- Insurance would like pt to have a regular treadmill first . Echo has been approved. Pt feels she can walk on a treadmill [employer]06-20-2024 Telephone encounter Note* Telephone Encounter - Gonsalo Pettit MD - 08/18/2023 11:37 AM EDT Yes that is fine. [employer] Work Phone: [phone] Telephone encounter Note* Telephone Encounter - Madhavi Cruz RN - 08/18/2023 11:37 AM EDT CTME rescheduled to Reg TME. Pt aware. Precert notified [employer]06-03-2024 Miscellaneous Notes* Telephone Encounter - Tish De [...] by telephone. Letter sent. documented in this encounterHenry County Hospital06-03-2024 Telephone encounter Note* Telephone Encounter - Tish [...] to reach patient by telephone. Letter sent. [facility]02-15-2024 Miscellaneous Notes* Telephone Encounter - Marlee Voss CMA - 04/14/2023 3:12 PM EST Left message for patient to remind them to bring their most current medication list with them to their appointment. documented in this encounterHenry County Hospital02-15-2024 Telephone encounter Note* Telephone Encounter - Marlee Voss CMA - 04/14/2023 3:12 PM EST Left message for patient to remind them to bring their most current medication list with them to their appointment. [facility]01-26-[facility]24 History of Present illness Narrative* Donna Lewis RN - 03/25/2023 9:42 AM EST Patient is here for follow up with Dr. Galloway. Orders received for Abd ultrasound to monitor liver cirrhosis in 1-2 months. F/u in 6 months, CBC again. Patient given calendar, verbalized understanding of future appointments. documented in this encounterHenry County Hospital01-26-2024 History of Present illness Narrative* Divya [...] MMR intact. She is s/p 6 cycles [place] doublet therapy. Interval history: The patient was [...] History: Diagnosis Date Abnormal mammogram Acute leukemia ([facility]) 2014 in remission Anxiety Arthritis Asthma Breast injury Chronic kidney disease COPD (chronic obstructive pulmonary disease) ([facility]) Depression Diabetes mellitus type 2, controlled ([facility]) Dry mouth 05/16/2019 STATES DENTIST SAID ALL TEETH ARE FALLING OUT Endometrial cancer ([facility]) 04/05/1989 Epilepsy ([facility]) GERD (gastroesophageal reflux disease) Heart murmur Hyperlipidemia Hypertension IBS (irritable bowel syndrome) Kidney stones Migraines Nosebleed Obesity Other cirrhosis of liver ([facility] 03/19/2021 Ovarian cancer ([facility]) 2021 Nomore cancer now Pneumonia PONV (postoperative nausea and vomiting) Sinusitis, chronic Sleep apnea CPAP Thrombocytopenia ([facility]) Visual impairment Past Surgical History: Procedure Laterality Date AUGMENTATION VERTEBRAL KYPHOPLASTY SPINE T12; L1; L3 N/A 11/24/2021 Performed by Matthew Messer Jr., MD at [facility] CHOLECYSTECTOMY DAVINCI HYSTERECTOMY / BSO left SENTINAL LYMPH NODE DISSECTION, right pelvic node disection and pelvic washings Bilateral 10/04/2019 Performed by Oscar Marks MD at [facility] DILATION AND CURETTAGE OF UTERUS 2019 EGD N/A 05/14/2019 Performed by Jerardo Romo DO at [facility] HYSTERECTOMY 10/04/2019 INJECTION MEDIAL BRANCH NERVE BLOCK Bilateral C 2/3 3/4 Bilateral 02/02/2019 Performed by Som Mcgee MD at [facility] ARTHROSCOPY Right OOPHORECTOMY 1989 50% [...] 40 min Stress: Stress Concern Present (03/07/2022) Taiwanese [employer]ers of Occupational Health - Occupational Stress Questionnaire Feeling of Stress : Very much Social Connections: Socially Isolated (03/07/2022) Social Connection and Isolation Panel [NHANES] Frequency of Communication with Friends and Family: Three times a week Frequency of Social Gatherings with Friends and Family: Twice a week Attends Scientologist Services: Never Active Member of Clubs or [...] (See Comments) COAGULATION DISORDER Potassium Clavulanate Anaphylaxis [place] Hives Jardiance [Empagliflozin] Nausea And Vomiting Albuterol [...] patient's insurance please point the Pt to ljce-puz-oyegjgk 4% lidocaine patches Dose: 1 patch Signed [...] female, Endometrial cancer determined by uterine biopsy ([facility]) Dose: 17 g Signed by: SERGO Yan [...] to ensure the accuracy of this automated stock patcher, some errors in stock patcher may have occurred. CC: Patient Care Team: Michelle Rebollar PA-C as PCP - General (Physician Wet Milling Wheel Operator) Peter Smith DO as Consulting Physician (Psychiatry) Janette Stone DO as Referring Physician (Neurology) Divya Galloway MD as Consulting Physician (Hematology) SERGO Conway as Physician Wet Milling Wheel Operator (Gynecologic Oncology) Oscar Marks MD as Referring Physician (Gynecologic Oncology) China Black [facility] as Genetic Counselor (Oncology) Lia Ramirez RN as Registered Nurse Matthew Messer Jr., MD as Surgeon (Orthopedic Surgery) PCP:MICHELLE REBOLLAR Referring MD: Michelle Rebollar PA-C documented in this encounterHenry County Hospital01-26-2024 Instructions* Patient Instructions* Divya Galloway MD - 03/25/2023 9:15 AM EST Abd ultrasound to monitor liver cirrhosis in 1-2 months. F/u in 6 months, CBC again. documented in this encounterHenry County Hospital01-18-2024 Miscellaneous Notes* Telephone Encounter - Francine Rai - 03/17/2023 9:43 AM EST T/C to pt to reschedule her 03-25-23 PPC appt d/t BD sched change. No answer, unable to LMOM, LMOM for Christopher fuchs, Emergency contact, to have his mom call our office. documented in this encounterHenry County Hospital01-18-2024 Telephone encounter Note* Telephone Encounter - Francine Rai - 03/17/2023 9:43 AM EST T/C to pt to reschedule her 03-25-23 PPC appt d/t BD sched change. No answer, unable to LMOM, LMOM for Christopher fuchs, Emergency contact, to have his mom call our office. [facility]2022 NotePlastic surgery office note Date 02/15/2022 Patient [...] for evaluation by the plastic surgeon in [place] who also could not perform her nasal [...] was examined in the presence of a finish grinder and the resident Vital signs stable, afebrile [...] significant findings and he complains are rather vague.[facility]05-18-2022 NotePROCEDURE: XR FOOT RT MIN 3 [...] Electronically authenticated by: CASSY JOHNSTON Date: 2021-07-15 14:31[facility]05-[facility] NotePROCEDURE: XR FOOT RT MIN 3 VIEWS, [...] Electronically authenticated by: CASSY JOHNSTON Date: 2021-07-15 14:31[facility]05-18-2022 NotePROCEDURE: XR FOOT RT MIN 3 VIEWS, [...] Electronically authenticated by: CASSY JOHNSTON Date: 2021-07-15 14:31[facility]* Diagnosis Hepatomegaly Splenomegaly Thrombocytopenia (HCC) Thrombocytopenia, unspecified documented in this encounter [facility] [employer] Phone: evaluation note* Diagnosis Periumbilical abdominal pain- Primary Abdominal pain, periumbilic documented in this encounter [facility] SystemEvaluation note* Diagnosis Endometrial cancer determined by uterine biopsy (CMS-HCC)- Primary Other cirrhosis of liver (CMS-HCC) Thrombocytopenia (CMS-HCC) Unspecified thrombocytopenia documented in this encounter [facility] SystemEvaluation note* Diagnosis Thrombocytopenia (CMS-HCC)- Primary Unspecified thrombocytopenia Endometrial cancer determined by uterine biopsy (CMS-HCC) Other cirrhosis of liver (CMS-HCC) documented in this encounter [facility] SystemEvaluation note* Diagnosis Chest pain, unspecified type- Primary documented in this encounter [facility] SystemEvaluation note* Diagnosis Endometrial cancer determined by uterine biopsy (CMS-HCC)- Primary Thrombocytopenia (CMS-HCC) Unspecified thrombocytopenia documented in this encounter [facility] SystemEvaluation note* Diagnosis Endometrial cancer determined by uterine biopsy (CMS-HCC)- Primary Other cirrhosis of liver (CMS-HCC) Thrombocytopenia (CMS-HCC) Unspecified thrombocytopenia Endometrial carcinoma (CMS-HCC) Hepatosplenomegaly Other chronic nonalcoholic liver disease documented in this encounter [facility] SystemEvaluation note* Diagnosis Chest pain, unspecified type- Primary Abnormal stress test Other nonspecific abnormal cardiovascular system function study Essential hypertension, benign Shortness of breath documented in this encounter [facility] SystemEvaluation note* Diagnosis Abnormal stress test- Primary Other nonspecific abnormal cardiovascular system function study Chest pain, unspecified type documented in this encounter [facility] SystemEvaluation noteNo assessment information available [facility] Work Phone: Evaluation note* Diagnosis Essential hypertension, benign- Primary FOREIGN on CPAP documented in this encounter [facility]* Diagnosis Thrombocytopenia- Primary Unspecified thrombocytopenia documented in this encounter [facility] SystemEvaluation note* Diagnosis Endometrial cancer determined by uterine biopsy ([facility])- Primary Thrombocytopenia Unspecified thrombocytopenia Other cirrhosis of liver ([facility]) Endometrial carcinoma ([facility]) Hepatosplenomegaly Other chronic nonalcoholic liver disease documented in this encounter [facility] SystemEvaluation note* Diagnosis Vomiting, unspecified vomiting type, unspecified whether nausea present- Primary Periumbilical abdominal pain Abdominal pain, periumbilic Diarrhea, unspecified type Black stools Nonspecific abnormal finding in stool contents RLQ abdominal pain Abdominal pain, right lower quadrant documented in this encounter [facility] SystemEvaluation note* Diagnosis Bilateral lower abdominal pain- Primary RLQ abdominal pain Abdominal pain, right lower quadrant documented in this encounter [facility] SystemHistory and physical note Author Pedro Emery [facility] CenterNote Date/TimeMarch 2024 2:29pm[place] [address] Gastroenterology H&P Signed Patient: Madhavi Easton MR#: [id number] : 1965 Acct:[id number] Age/Sex: 58 / F Adm Date: 5 Loc: Room: Type: [facility] Attending Dr: Pedro Emery MD Copies to: MD Lucia Remy APRN,COOK CHILI~ Date of Service: 05/10/2024 HISTORY & PHYSICAL: Patient's history with special attention to the cardiovascular, pulmonary systems and the current problem was reviewed with the patient immediately prior to the procedure. Present medications and doses reviewed in the EMR. Allergies and pertinent laboratory tests were also re viewedat this time in the EMR. The physical [...] an appropriate candidate for the procedure. Pedro Emery M.D. Documented By: Pedro Emery MD 05/10/24 1345 Signed By: <Electronically signed by Pedro Emery MD> 05/10/24 1345 [facility] Work Phone: InstructionsNot on filedocumented in [...] Health SystemInstructionsNot on filedocumented in this encounter [facility] SystemReason for referral (narrative)No reason for referral information availableNationwide Children'S Hospital [facility]tr Work Phone: Summary Purpose Family History No Family History Records Found Relationship Condition Age at Onset Recorded Date/T alden father Malignant neoplasm Unknown sisterDiabetes mellitusUnknownmotherHeart diseaseUnknown Relationship Condition Age at Onset Recorded Date/T alden father Malignant neoplasm Unknown sisterDiabetes mellitusUnknown Advance Directives No Advanced Directives Records Found Date ActivatedDate InactivatedComments03/08/2024 8:00 PM03/09/2024 6:28 PMDate ActivatedDate InactivatedComments11/21/2021 8:16 AM11/25/2021 7:32 PMDate ActivatedDate InactivatedComments10/04/2019 12:01 PM10/05/2019 2:14 PMCode Status Date ActivatedDate InactivatedCommentsFull Code11/21/2021 8:16 AM11/25/2021 7:32 PMCode StatusDate ActivatedDate InactivatedCommentsFull Code10/04/2019 12:01 PM 10/05/2019 2:14 PMDate ActivatedDate InactivatedComments11/21/2021 8:16 AM11/25/2021 7:32 PMDate ActivatedDate InactivatedComments10/04/2019 12:01 PM10/05/2019 2:14 PM Date ActivatedDate InactivatedComments11/21/2021 8:16 AM11/25/2021 7:32 PMDate ActivatedDate InactivatedComments10/04/2019 12:01 PM10/05/2019 2:14 PM Advance Directive Response Recorded Date/ Time Advance Directives No March 20, 2024 12:17pm Advance Directive Response Recorded Date/ Time Advance Directives No March 20, 2024 1:17pm Date ActivatedDate InactivatedComments03/08/2024 8:00 PM03/09/2024 6:28 PMDate ActivatedDate InactivatedComments11/21/2021 8:16 AM11/25/2021 7:32 PMDate ActivatedDate InactivatedComments10/04/2019 12:01 PM10/05/2019 2:14 PM Reason for Referral SpecialtyDiagnoses / ProceduresReferred By ContactReferred To Contact Diagnoses Chest pain, unspecified type Procedures Stress test (exercise only) Gonsalo Pettit MD [address] [place] [address] [facility] [address] [place] [address] Phone: [phone] Referral IDStatusReasonStbentley DateExpiration DateVisits RequestedVisits [id number] Review/[id number] / ProceduresReferred By ContactReferred To ContactRadiology Diagnoses Endometrial cancer determined by uterine biopsy (CMS-HCC) Other cirrhosis of liver (CMS-HCC) Thrombocytopenia (CMS-HCC) Endometrial carcinoma (CMS-HCC) Hepatosplenomegaly Procedures CT abdomen and pelvis with contrast Divya Galloway MD [address] [place] [id number] Referral IDStatMarietta Memorial Hospital DateExpiration DateVisits RequestedVisits [id number] Review/[id number] / ProceduresReferred By ContactReferred To ContactRadiology Diagnoses Endometrial cancer determined by uterine biopsy (CMS-HCC) Other cirrhosis of liver (CMS-HCC) Thrombocytopenia (CMS-HCC) Endometrial carcinoma (CMS-HCC) Hepatosplenomegaly Procedures CT chest with contrast Divya Galloway MD [address] [place] [address] [address] [id number] Referral IDStatusReNorth [facility] DateExpiration DateVisits RequestedVisits [id number] Review/ Chief Complaint and Reason for Visit Chief Complaint Admit Date Refer: GERD April 23, 2024 9:54am Chief Complaint Admit Date Refer: GERD April 23, 2024 9:54am GERD, EARLY SATIETY,NAUSEA May 10 025 11:29am GERD, EARLY SATIETY,NAUSEA March 13th, 2 025 1:45pm Reason for Visit Admit Date Abdominal pain April 23, 2024 9:54am Dyspepsia April 23, 2024 9:54am GERD (gastroesophageal reflux disease) F ebruary 2024 9:54am Unexplained weight loss April 23, 025 9:54am Chief Complaint Admit Date Unknown December 18, 2024 1 :11am Additional Source Comments INFORMATION SOURCE (unrecogn ized section and content) DATE CREATED AUTHOR 08/18/2017 [facility] DATE CREATED AUTHOR AUTHOR'S ORGANIZ ATION 09/20/2021 [facility] DATE CREATED AUTHOR AUTHOR'S ORGANIZ ATION 11/02/2021 [facility] DATE CREATED AUTHOR AUTHOR'S ORGANIZ ATION 02/19/2022 [facility] DATE CREATED AUTHOR AUTHOR'S ORGANIZ ATION 07/06/2023 [facility] DATE CREATED AUTHOR AUTHOR'S ORGANIZ ATION 02/17/2024 [facility] DATE CREATED AUTHOR AUTHOR'S ORGANIZ ATION 12/22/2024 [facility] DATE CREATED AUTHOR AUTHOR'S ORGANIZ ATION 12/26/2024 [facility] DATE CREATED AUTHOR AUTHOR'S ORGANIZ ATION 01/06/2025 [facility] DATE CREATED AUTHOR AUTHOR'S ORGANIZ ATION 01/09/2025 [facility] Care Teams (unrecognized sec tion and content) Team MemberRelationshipSpecialtyStart DateEnd Date Michelle Rebollar [address] [place], [place] [id number] PCP - General07/22/21Team MemberRelationshipSpecialtyStart DateEnd Date Services, [facility] [address] [place], [place] PCP - GeneralFamily Medicine03/15/24Team MemberRelationshipSpecialtyStart DateEnd Date Michelle Rebollar PA-C [address] [place] [address] PCP - GeneralPhysician Assistant07/10/20Team MemberRelationshipSpecialtyStart DateEnd Date Michelle Rebollar PA-C [address] [place] [address] PCP - GeneralPhysician Assistant07/10/20Team MemberRelationshipSpecialtyStart DateEnd Date Michelle Rebollar PA-C [address] [place] [address] PCP - GeneralPhysician Assistant07/13/23Team MemberRelationshipSpecialtyStart DateEnd Date Michelle Rebollar PA-C [address] [place] [address] PCP - GeneralPhysician Assistant07/13/23Team MemberRelationshipSpecialtyStart DateEnd Date Michelle Rebollar PA-C [address] [place] [address] PCP - GeneralPhysician Assistant07/13/23Team MemberRelationshipSpecialtyStart DateEnd Date Michelle Rebollar PA-C [address] [place] [address] PCP - GeneralPhysician Assistant07/13/23Team MemberRelationshipSpecialtyStart DateEnd Date Michelle Rebollar PA-C [address] [place] [address] PCP - GeneralPhysician Assistant07/13/23Team MemberRelationshipSpecialtyStart DateEnd Date Michelle Rebollar PA-C [address] [place] [address] PCP - GeneralPhysician Assistant07/13/23Team MemberRelationshipSpecialtyStart DateEnd Date Michelle Rebollar PA-C [address] [place] [address] PCP - GeneralPhysician Trbdgzgwl73/3/24Team MemberRelationshipSpecialtyStart DateEnd Date Michelle Rebollar PA-C [address] [place] [address] PCP - GeneralPhysician Yowvxdkbt62/3/24Team MemberRelationshipSpecialtyStart DateEnd Date Michelle Rebollar PA-C [address] [place] [address] PCP - GeneralPhysician Krfwgjpin71/3/24Team MemberRelationshipSpecialtyStart DateEnd Date Michelle Rebollar PA-C [address] [place] [address] PCP - GeneralPhysician Slbxjnfdi35/3/24 Team Status: Active Member Role Status Dates Lucia Olmos APRN [employer] DEVELOPER-C Primary Care Provide r Active Team Status: Active Member Role Status Dates Anne Soto DO Attending Provider Active St art: March 16, 2024 Team Status: Inactive Member Role Status Dates Chen Oconnor APRN Attending Provider Active Start: April 23, 2024 End: April 23, 2024Lucia Olmos APRN [employer] PHP DEVELOPER-CPrimary Care Provider, Referring ProviderActiveStart: April 23, 2024 End: April 23, 2024 Team Status: Inactive Member Role Status Dates Lucia Olmos APRN [employer] PHP DEVELOPER-C Primary Care Provider Active Start: May 10, 2024 End: May 10, 2024Reina Remy ProviderActiveStart: May 10, 2024 End: May 10, 2024 Team Status: Active Member Role Status Dates Lucia Olmos APRN [employer] PHP DEVELOPER-C Primary Care Provider Active Start: May 10, 2024 Reina Remy Provider, Other ProviderActiveStart: May 10, 2024 Team MemberRelationshipSpecialtyStart DateEnd Formerly [facility] [address] [place] PCP - GeneralFamily Medicine03/15/24Te MemberRelationshipSpecialtyStart [facility] [address] [place] PCP - GeneralFamily Medicine03/15/24Te MemberRelationshipSpecialtyStart DateEnd [facility] [address] [place] PCP - GeneralFamily Medicine03/15/24Te MemberRelationshipSpecialtyStart DateEnd [facility] [address] [place] PCP - GeneralFamily Medicine03/15/24Te MemberRelationshipSpecialtyStart DateEnd [facility] [address] [place] PCP - GeneralFamily Medicine03/15/24Te MemberRelationshipSpecialtyStart DateEnd Date [facility] [address] [place] PCP - GeneralFamily Medicine03/15/24Te MemberRelationshipSpecialtyStart DateEnd [facility] [address] [place] PCP - GeneralFamily Medicine03/15/24Te MemberRelationshipSpecialtyStart DateEnd [facility] [address] [place] PCP - Generalmily Medicine03/15/24Te MemberRelationshipSpecialtyA[facility] [address] [place] PCP - GeneralFamily Medicine03/15/24Te MemberRelationshipSpecialtyAbrazo [facility] [address] [place] PCP - [facility]/15/24 Team Status: Inactive Member Role/Relationship Status Dates Alberto Gallagher DO Attending Provider Active S tart: December 18, 2024 End: December 18, 2024 Reason for Visit (unrecogniz ed section and content) ReasonCommentsHerniaVENTRAL HERNIA, REFERRED BY LUCIA OLMOS, NPReason CommentsFollow-upReasonOnset DateCommentsMultiple Needs4ReasonOnset DateCommentsCTA cors14ReasonCommentsFollow-upChest PainReasonComments Follow-upEST PT F/U CTA DONE SCHED W/ PT lmom for pt re: her OON ins.06-13-24 sjn ReasonCommentsVomitingPersistent vomiting and abdominal pain, self referred ReasonOnset DateCommentsRe-establish Care11/27/2024ReasonCommentsMed Refill ReasonCommentsFollow-up1 month recall, poor bowel prep, last colon 12/03/24 Goals (unrecognized section and content) Goals may be documented in a n alternate sectionGoals may be documented in an alternate section FOR RECORDS PERTAINING TO PATIENTS [...] BE BASED ON THE PRIMARY CLINICAL RECORDS. [facility] [employer] [facility]. provides no warranty or guarantee of the accuracy or completeness of information in this document.
== END 2025-01-17 13:17 | disposition left against medical advice (07) ==
PROVIDERS: Emergency Provider Emergency Medicine
DX: Z53.21 Procedure and treatment not carried out due to patient leaving prior to being seen by health care provider (principal)
CPT/HCPCS: 99281